=== PATIENT | female | born 1965 | race Caucasian/White ===

== ENCOUNTER 2017-09-02 13:03 | Emergency (ER) | payer SELFPAY ==
[2017-09-02 14:44] LABS: #Eosinphils 0.3 thou/uL (0.0-0.7); #Lymphocytes 2.4 thou/uL (1.20-3.40); #Monocytes 0.6 thou/uL (0.11-0.59); #Neutrophils 8.4 thou/uL (1.40-6.50); %Basophils 0.3 % (0.0-1.0); %Eosinophils 2.7 % (0.0-10.0); %Lymphocytes 20.3 % (21.0-51.0); Hematocrit 33.3 % (36.0-47.0); Red Blood Cell (RBC) Count 3.87 mill/uL (4.20-5.40); White Blood Cell (WBC) Count 11.6 thou/uL (4.8-10.8)
[2017-09-02] MEDS ORDERED: Ketorolac Tromethamine 30 MG/ML VIAL ONE (15:05)
[2017-09-02 15:09] LABS: ALT (SGPT) 26 U/L (8-55); AST (SGOT) 27 U/L (5-34); Alkaline Phosphatase 64 U/L (40-150); Anion Gap 14 mmol/L (10-20); BUN (Urea Nitrogen) 45 mg/dL (9.8-20.1); Bilirubin, Total 0.2 mg/dL (0.2-1.2); Calc. Creatinine Clearance 0 mL/min (70-130); Calcium 9.1 mg/dL (7.8-10.44); Carbon Dioxide 25 mmol/L (22-29); Chloride 100 mmol/L (98-107); Estimated GFR-MDRD 24; Globulin 2.9 g/dL (2.4-3.5); Protein, Total 6.6 g/dL (6.0-8.3)
--- NOTE | 2017-09-02 16:34 | CT ---
CT HEAD NONCONTRAST DATE: 09/02/17 HISTORY: Fall. Head injury. COMPARISON: 02/01/14. FINDINGS: There is no evidence of acute intracranial hemorrhage or infarct. Mild chronic ischemic small vessel disease is similar in appearance to the prior study. There is no mass effect or shift of midline st ructures. Visualized paranasal sinuses remain well aerated. IMPRESSION: No acute intracranial abnormalities are demonstrated on noncontrast CT head. POS: [facility]
[2017-09-02 18:17] LABS: POC Est. GFR-MDRD-African-Amer 34 (2-60); POC Estimated GFR-MDRD 28 (2-60)
== END 2017-09-02 14:27 | disposition home or self-care (01) ==
LOC: ERS 13:03
DX: N28.9 Disorder of kidney and ureter, unspecified (principal); R53.1 Weakness; G89.29 Other chronic pain; E11.40 Type 2 diabetes mellitus with diabetic neuropathy, unspecified; E78.5 Hyperlipidemia, unspecified; F41.9 Anxiety disorder, unspecified; F32.9 Major depressive disorder, single episode, unspecified; F17.210 Nicotine dependence, cigarettes, uncomplicated; G47.30 Sleep apnea, unspecified; J45.909 Unspecified asthma, uncomplicated; I10 Essential (primary) hypertension; M06.9 Rheumatoid arthritis, unspecified; K21.9 Gastro-esophageal reflux disease without esophagitis; K90.0 Celiac disease; L40.50 Arthropathic psoriasis, unspecified; M32.9 Systemic lupus erythematosus, unspecified; W19.XXXA Unspecified fall, initial encounter
CPT/HCPCS: 70450; 80053; 83735; 85025; 96361; 96374; J1885

== ENCOUNTER 2017-09-12 16:37 | Emergency (ER) | payer SELFPAY ==
[2017-09-12 17:40] LABS: #Eosinphils 0.3 thou/uL (0.0-0.7); #Lymphocytes 2.8 thou/uL (1.20-3.40); #Monocytes 0.7 thou/uL (0.11-0.59); #Neutrophils 5.9 thou/uL (1.40-6.50); %Basophils 0.4 % (0.0-1.0); %Eosinophils 3.5 % (0.0-10.0); %Lymphocytes 28.6 % (21.0-51.0); %Monocytes 7.6 % (0.0-10.0); Hematocrit 33.4 % (36.0-47.0); Mean Platelet Volume 8.2 fL (7.4-10.4); Red Blood Cell (RBC) Count 3.84 mill/uL (4.20-5.40); White Blood Cell (WBC) Count 9.8 thou/uL (4.8-10.8)
[2017-09-12 18:05] LABS: ALT (SGPT) 30 U/L (8-55); AST (SGOT) 40 U/L (5-34); Alkaline Phosphatase 61 U/L (40-150); Anion Gap 14 mmol/L (10-20); BUN (Urea Nitrogen) 39 mg/dL (9.8-20.1); Bilirubin, Total 0.2 mg/dL (0.2-1.2); CK (CPK) 186 U/L (29-168); Calc. Creatinine Clearance 0 mL/min (70-130); Calcium 8.8 mg/dL (7.8-10.44); Carbon Dioxide 24 mmol/L (22-29); Chloride 98 mmol/L (98-107); Estimated GFR-MDRD 25; Lipase 189 U/L (8-78); Protein, Total 6.6 g/dL (6.0-8.3)
[2017-09-12 18:10] LABS: Troponin I Less than 0.010 ng/mL (< 0.028)
[2017-09-12 18:40] LABS: Bilirubin Negative (Negative); Blood, Urine Negative (Negative); Glucose, Urine (Dipstick) Negative (Negative); Ketone, Urine Negative (Negative); Nitrite Negative (Negative); Protein, Urine (Dipstick) Negative (Neg-Trace); Urobilinogen 0.2 mg/dL (0.2-1.0)
[2017-09-12 18:41] LABS: Bacteria/HPF None Seen HPF (None Seen); RBC/HPF 0-3 HPF (0-3); WBC/HPF 0-3 HPF (0-3)
[2017-09-12 19:00] LABS: Hyaline Casts/LPF 0-3 HYALINE CAST LPF (0-3 Hyaline)
--- NOTE | 2017-09-12 20:17 | RAD ---
PORTABLE CHEST ONE VIEW 09/12/17 at 6 p.m. HISTORY: Chest pain. FINDINGS: Comparison is made to the exam of 02/22/17. The heart size is borderline. The lungs are well expanded without focal areas of consolidation, pneu mothorax, agustín pulmonary edema or pleural effusions. IMPRESSION: No radiographic evidence of acute cardiopulmonary process. POS: [facility]
[2017-09-12] MEDS ORDERED: traMADol HCl 50 MG TAB ONE (20:59)
[2017-09-12] MEDS ORDERED: predniSONE 20 MG TAB ONE (20:59)
== END 2017-09-12 21:12 | disposition home or self-care (01) ==
LOC: ERS 16:37
DX: M79.1 Myalgia (principal); J45.909 Unspecified asthma, uncomplicated; E11.9 Type 2 diabetes mellitus without complications; E78.5 Hyperlipidemia, unspecified; I10 Essential (primary) hypertension; M06.9 Rheumatoid arthritis, unspecified; K21.9 Gastro-esophageal reflux disease without esophagitis; G62.9 Polyneuropathy, unspecified; F32.9 Major depressive disorder, single episode, unspecified; F41.9 Anxiety disorder, unspecified; M32.9 Systemic lupus erythematosus, unspecified; Z87.891 Personal history of nicotine dependence; Z79.84 Long term (current) use of oral hypoglycemic drugs; Z79.899 Other long term (current) drug therapy; Z79.891 Long term (current) use of opiate analgesic
CPT/HCPCS: 51701; 71010; 80053; 81003; 81015; 82553; 83690; 84484; 85025; 85652; 86140; 93005; A4353; J7506

== ENCOUNTER 2017-09-26 16:52 | Inpatient (IN) | payer OTHER, SELFPAY ==
[2017-09-26 18:37] LABS: #Eosinphils 0.2 thou/uL (0.0-0.7); #Lymphocytes 2.6 thou/uL (1.20-3.40); #Monocytes 0.9 thou/uL (0.11-0.59); #Neutrophils 11.6 thou/uL (1.40-6.50); %Basophils 0.1 % (0.0-1.0); %Eosinophils 1.5 % (0.0-10.0); %Monocytes 5.6 % (0.0-10.0); Hematocrit 34.3 % (36.0-47.0); Mean Platelet Volume 8.5 fL (7.4-10.4); Red Blood Cell (RBC) Count 3.89 mill/uL (4.20-5.40); White Blood Cell (WBC) Count 15.3 thou/uL (4.8-10.8)
[2017-09-26 18:54] LABS: Lactic Acid - Sepsis 0.9 mmol/L (0.5-2.2)
[2017-09-26 18:59] LABS: ALT (SGPT) 26 U/L (8-55); AST (SGOT) 20 U/L (5-34); Alkaline Phosphatase 62 U/L (40-150); Anion Gap 14 mmol/L (10-20); BUN (Urea Nitrogen) 32 mg/dL (9.8-20.1); Bilirubin, Total 0.3 mg/dL (0.2-1.2); Calc. Creatinine Clearance 0 mL/min (70-130); Calcium 8.8 mg/dL (7.8-10.44); Carbon Dioxide 24 mmol/L (22-29); Chloride 104 mmol/L (98-107); Estimated GFR-MDRD 34; Globulin 3.3 g/dL (2.4-3.5)
--- NOTE | 2017-09-26 19:09 | RAD ---
THERE VIEWS RIGHT FOOT: Indication: 52-year-old female with complaints of right foot pain. Comparison: 05-21-16 FINDINGS: The toes of the right foot are slightly healed in flexion which limits the evaluation. There is some scattered forefoot osteoarthrosis, most prominent within the great toe MTP joint. There is healed f racture deformity which is stable to a prior dated 05-21-16 involving the fifth metatarsal shaft. The re is soft tissue swelling and soft tissue gas overlying the plantar lateral aspect of the right fif th metatarsal, suspicious for an ulceration and soft tissue infection at this location. There is no overt destructive osteolysis to suggest radiographic evidence of osteomyelitis. IMPRESSION: 1. Soft tissue wound involving the lateral aspect of the right foot without radiographic evidence of osteomyelitis. 2. Healed fracture deformity of the fifth metatarsal shaft. 3. Scattered osteoarthrosis. POS: [facility]
[2017-09-26] MEDS ORDERED: Vancomycin HCl 1.5 GM in Sodium Chloride 0.9% 250 ML 300 ML IVPB SCH (19:30)
[2017-09-26] MEDS ORDERED: Clindamycin/D5W 900 mg/50 ml Premix Bag ONE (19:51)
[2017-09-26] MEDS ORDERED: Morphine 10 MG/ML VIAL ONE (20:39)
[2017-09-26] MEDS ORDERED: Meropenem 1 GM, Admixture Fee 1 EACH in Sterile Water 20 ML SLOW IVP SCH (21:00)
[2017-09-26] MEDS ORDERED: Acetaminophen 325 MG TAB PO PRN (21:26)
[2017-09-26] MEDS ORDERED: Benzonatate 100 MG CAP PO PRN (21:26)
[2017-09-26] MEDS ORDERED: HumaLOG 300 UNITS/3 ML VIAL SC PRN (21:26)
[2017-09-26] MEDS ORDERED: Ondansetron HCl/PF 4 MG/2 ML Vial IVP PRN (21:26)
[2017-09-26] MEDS ORDERED: Bisacodyl 5 MG TAB PO PRN ×2 (21:26)
[2017-09-26] MEDS ORDERED: Dextrose 50% Abboject 50 ML SYRINGE SLOW IVP PRN (21:26)
[2017-09-26] MEDS ORDERED: Nitroglycerin 0.4 MG TAB (25 Tab Bottle) SL PRN (21:26)
[2017-09-26] MEDS ORDERED: Senokot 8.6 MG TAB PO PRN ×2 (21:26)
[2017-09-26] MEDS ORDERED: Diabetic Tussin 200 MG/10 ML UDCUP PO PRN (21:26)
[2017-09-26] MEDS ORDERED: Calcium Carbonate 500 MG ChewTAB PO PRN (21:26)
[2017-09-26] MEDS ORDERED: Loratadine 10 MG TAB PO PRN (21:26)
[2017-09-26] MEDS ORDERED: Mag-Al 1200 mg/1200 mg/30 ML UDCUP PO PRN (21:26)
[2017-09-26] MEDS ORDERED: Dextrose 5% in Water 1,000 ML IV PRN (21:26)
[2017-09-26] MEDS ORDERED: cloNIDine 0.1 MG TAB PO PRN (21:26)
[2017-09-26] MEDS ORDERED: hydrALAZINE 20 MG/ML VIAL SLOW IVP PRN (21:26)
[2017-09-26] MEDS: Meropenem 1 GM in Sodium Chloride 0.9% 100 ML IVPB SCH (22:30)
[2017-09-26] MEDS ORDERED: traMADol HCl 50 MG TAB PO PRN (23:48)
[2017-09-26] MEDS ORDERED: Nystatin Powder 15 GM BOT TOP SCH (23:59)
[2017-09-27 00:25] VITALS: BMI 43.0
[2017-09-27] MEDS: Sodium Chloride 0.9% 1,000 ML IV SCH ×2 (00:39→11:19)
[2017-09-27] MEDS: HYDROcodone/Acetaminophen 5/325 mg Tablet PO PRN ×5 (00:51→21:12)
[2017-09-27] MEDS ORDERED: Meropenem 1 GM, Admixture Fee 1 EACH in Sterile Water 20 ML SLOW IVP SCH (02:00)
[2017-09-27] MEDS: Meropenem 1 GM in Sodium Chloride 0.9% 100 ML IVPB SCH (04:11)
[2017-09-27 05:26] LABS: #Basophils 0.1 thou/uL (0.0-0.2); #Eosinphils 0.3 thou/uL (0.0-0.7); #Lymphocytes 2.8 thou/uL (1.20-3.40); #Monocytes 0.6 thou/uL (0.11-0.59); #Neutrophils 7.1 thou/uL (1.40-6.50); %Basophils 1.2 % (0.0-1.0); %Eosinophils 2.5 % (0.0-10.0); %Lymphocytes 25.3 % (21.0-51.0); %Monocytes 5.7 % (0.0-10.0); Hematocrit 33.7 % (36.0-47.0); Mean Platelet Volume 8.4 fL (7.4-10.4); Red Blood Cell (RBC) Count 3.78 mill/uL (4.20-5.40); White Blood Cell (WBC) Count 10.9 thou/uL (4.8-10.8)
--- NOTE | 2017-09-27 05:46 | HP ---
DATE OF ADMISSION: 09/26/2017 CHIEF COMPLAINT: Right foot ulcer with drainage of pus, associated with pain and erythema, extendin g to the surrounding foot; and fever. PRIMARY CARE PHYSICIAN: Juliette Chan. HISTORY OF PRESENTING ILLNESS: Ms. Avery is a very pleasant 52-year-old female with past medical history of diabetes mellitus, obstructive sleep apnea, asthma, hypertension, dyslipidemia, a rthritis, and history of cervical cancer, who presented to the emergency room with the above-mention ed complaints. History is mainly obtained by the patient herself and electronic medical record have been reviewed. The patient was last admitted to our facility in December of 2016, at which time sh brain was treated for a tremor secondary to statins. Ms. Avery reports that she has developed a small ulcer on the lateral side of her right foot since J une of this year. They have been cleaning it and putting antibiotic ointment on it at home. Unfort unately, because her lost his job and they lost the insurance. They have stopped going to t foot doctor that has been managing her 2 years ago. Two days ago, she started to have fever as h igh as 101 and 102. The pain in her foot worsened and this morning when they were trying to dress i t they noticed that there is a significant amount of pus coming out of it, draining to the floor. W ith these symptoms they presented to the ER. In the emergency room, she was hemodynamically stable with the blood pressure 114/91 with the pulse of 79. Physical examination revealed significant ulcer with flatulence and pus under the skin on th e plantar surface of the right foot along with an ulcer on the lateral surface of the right foot. X -ray of the foot was done, which did not show any evidence of bone infection, but showed soft tissue swelling with gas. She received meropenem and vancomycin in the emergency room and is now being ad mitted for the right foot diabetic ulcer with infection. PAST MEDICAL HISTORY: 1. Diabetes mellitus, type 2. 2. Diabetic neuropathy. 3. History of lupus. 4. Dyslipidemia. 5. Fibromyalgia. 6. Rheumatoid arthritis. 7. Psoriatic arthritis. 8. Hypertension. 9. Celiac disease. 10. Morbid obesity. 11. Obstructive sleep apnea. 12. Asthma. 13. Glaucoma. 14. Migraine. 15. Restless legs syndrome. PAST SURGICAL HISTORY: 1. Hysterectomy. 2. Deviated nasal septum repair. 3. Cholecystectomy. 4. Tubal ligation. 5. Tonsillectomy and adenoidectomy. 6. Cyst removal from the left breast. 7. Exploratory abdominal surgery. PAST PSYCHIATRIC HISTORY: Anxiety and depression. ALLERGIES: CEFTIN, CODEINE, CYMBALTA, PENICILLIN, GLUTEN, SULFA. FAMILY HISTORY: Mother had bilateral mastectomy and has dementia. Biological father has history of hypertension. SOCIAL HISTORY: The patient is and has no history of drug, tobacco, or alcohol abuse. Her is at the bedside and is the surrogate decision maker. The patient has applied for the [employer], but was declined because her has found a new job. She is still uninsured. CURRENT MEDICATIONS: Unknown. According to the ER note, she takes the following medications: QVAR 80 mcg b.i.d., Proventil 90 mcg two puffs b.i.d., metformin 1000 mg b.i.d., fluticasone 50 mcg two sprays daily, Lyrica 150 p.o. b.i.d., sumatriptan 100 mg as needed, glipizide 10 mg two tablets in t he morning and one tablet in the evening, sertraline 100 mg two tabs once a day, lisinopril 10 mg da gianna, tramadol 50 mg b.i.d. as needed, Lasix 40 mg daily, alprazolam 1 mg half to one tablet t.i.d. p .r.n., Januvia 100 mg daily, melatonin 10 mg at bedtime as needed, potassium chloride 10 mEq daily, iron 325 mg daily, vitamin D3 of 2000 units daily, and Crestor 40 mg daily. REVIEW OF SYSTEMS: The following complete review of systems was negative, unless otherwise mentione d in the HPI or below: Constitutional: Weight loss or gain, ability to conduct usual activities. Skin: Rash, itching. Eyes: Double vision, pain. ENT/Mouth: Nose bleeding, neck stiffness, pain, tenderness. Cardiovascular: Palpitations, dyspnea on exertion, orthopnea. Respiratory: Shortness of breath, wheezing, cough, hemoptysis, fever or night sweats. Gastrointestinal: Poor appetite, abdominal pain, heartburn, nausea, vomiting, constipation, or diar ev. Genitourinary: Urgency, frequency, dysuria, nocturia. Musculoskeletal: Pain, swelling. Neurologic/Psychiatric: Anxiety, depression. Allergy/Immunologic: Skin rash, bleeding tendency. It is negative except for those mentioned in the history and physical. LABORATORY EXAMINATION AND IMAGING: CBC shows WBCs at 15.3 with 75% neutrophils, hemoglobin of 11.4 , otherwise unremarkable. ESR 37. CRP is elevated to 5.32. BUN 32, creatinine 1.57 with baseline creatinine being normal. Blood sugar 135. Lactic acid 0.9. X-ray of the foot shows osteoarthrosis and healed fracture deformity involving the fifth metatarsal shaft. There is soft tissue swelling and gas overlying the lateral aspect of the right foot. No osseous abnormality as per the radiologi st. PHYSICAL EXAMINATION: VITAL SIGNS: Upon presentation include blood pressure 114/91, pulse of 76, respirations 18, saturat ing 98% on room air, temperature 98. GENERAL EXAMINATION: In no acute distress, awake, alert, and oriented x3. HEENT EXAMINATION: Mucous membrane is moist and pink. No oropharyngeal exudate or erythema. Head is normocephalic, atraumatic. Pupils are equal and reactive to light and accommodation. Extraocula r movements intact. NECK: Supple without any lymphadenopathy, JVD, or bruit. CHEST: Clear to auscultation without any wheezing, rales, or rhonchi. CARDIAC: Rate and rhythm is regular without any murmur, rubs or gallops. ABDOMEN: Soft, nontender, nondistended, obese. No guarding, rebound, or rigidity. EXTREMITIES: There is a shallow dry ulcer on the tip of the big toe of the right foot and the botto m of the right foot has purulence and deep ulcer on the lateral aspect. The patient's foot is stearns ged at this time, but I reviewed the wound pictures. NEUROLOGICAL EXAMINATION: Nonfocal. SKIN: Free of any rashes or bruises, feels warm and dry to touch. PSYCHIATRIC: Normal affect. VASCULAR: +2 pedal pulses felt bilaterally. IMPRESSION AND PLAN: 1. Diabetic foot ulcer infection. At this time, there is no evidence of osseous involvement on the foot x-ray. She will be treated with broad-spectrum IV antibiotic. I have chosen vancomycin and m eropenem given her multitude of allergies to various antibiotics. Wound Care will be consulted. Bl ood cultures have been sent and we will follow the final results. Most likely the patient can be di scharged in a few days on oral antibiotic. If her symptoms do not improve or worsen, we would perfo rm an MRI of the foot to rule out osteomyelitis. Symptomatic and supportive care has been ordered. 2. Diabetes mellitus. We will resume her home medications once confirmed. At this time, we will p ut her insulin sliding scale with frequent Accu-Cheks. 3. History of asthma with the patient is asymptomatic at this time. We will continue her QVAR and add nebulizers as needed. 4. Acute kidney insufficiency, likely secondary to poor p.o. intake and dehydration. At this time, we will start her on gentle intravenous fluid hydration and avoid any nephrotoxic agents and rechec k BMP in the morning. 5. Morbid obesity. The patient was eating sonic in room that her has brought for her. I h ave educated about dietary restrictions. 6. Dyslipidemia. Continue Crestor, once the dose is confirmed. 7. Peripheral neuropathy. We will restart her Lyrica once the dose has confirmed. 8. Deep venous thrombosis and gastrointestinal prophylaxis. 9. Code status: FULL CODE, discussed with the patient. DISPOSITION: The patient is being admitted for diabetic foot infection. ESTIMATED LENGTH OF STAY: Two to three midnight. Further management will depend upon her clinical course.
[2017-09-27 05:58] LABS: Anion Gap 12 mmol/L (10-20); BUN (Urea Nitrogen) 28 mg/dL (9.8-20.1); Calc. Creatinine Clearance 63 mL/min (70-130); Calcium 8.8 mg/dL (7.8-10.44); Carbon Dioxide 25 mmol/L (22-29); Chloride 107 mmol/L (98-107); Estimated GFR-MDRD 33
[2017-09-27] MEDS: Mometasone 100 MCG HFA INHALER INH SCH ×2 (06:28→19:17)
[2017-09-27] MEDS: Enoxaparin Sodium 30 MG/0.3 ML SYRINGE SC SCH (07:37)
[2017-09-27] MEDS: Nystatin Powder 15 GM BOT TOP SCH ×2 (07:38→21:03)
[2017-09-27] MEDS ORDERED: Non-Formulary Item 1 EACH (Sumatriptan Succinate [Imitrex] 100 MG) PO PRN (07:43)
[2017-09-27] MEDS ORDERED: ALPRAZolam 1 MG TAB PO PRN (07:43)
[2017-09-27] MEDS ORDERED: SUMAtriptan Succinate 50 MG TAB PO PRN (08:07)
[2017-09-27] MEDS ORDERED: Non-Formulary Item 1 EACH (Ferrous Sulfate [Iron] 325 MG) PO SCH (09:00)
[2017-09-27] MEDS ORDERED: Non-Formulary Item 1 EACH (Rosuvastatin Calcium [Crestor] 40 MG) PO SCH (09:00)
[2017-09-27] MEDS ORDERED: Non-Formulary Item 1 EACH (Pregabalin [Lyrica] 150 MG) PO SCH (09:00)
[2017-09-27] MEDS ORDERED: Famotidine 20 MG TAB PO SCH (09:00)
[2017-09-27] MEDS ORDERED: [UNRECOGNIZED DRUG - OTHER] PO SCH (09:00)
[2017-09-27] MEDS: Pregabalin 75 MG CAP PO SCH ×2 (09:10→20:47)
[2017-09-27] MEDS: Lisinopril 10 MG TAB PO SCH (09:11)
[2017-09-27] MEDS: Ferrous Sulfate 325 MG TAB PO SCH ×2 (09:12→20:44)
[2017-09-27] MEDS: Alogliptin 25 MG TAB PO SCH (09:13)
[2017-09-27] MEDS: Multivit, Therapeutic 1 TAB PO SCH (09:13)
[2017-09-27] MEDS: Meropenem 1 GM, Admixture Fee 1 EACH in Sterile Water 20 ML SLOW IVP SCH ×2 (10:03→17:49)
[2017-09-27] MEDS: Lorazepam 1 MG TAB PO PRN (12:19)
[2017-09-27 12:27] LABS: Bilirubin Negative (Negative); Blood, Urine Small (Negative); Glucose, Urine (Dipstick) Negative (Negative); Ketone, Urine Negative (Negative); Nitrite Negative (Negative); Protein, Urine (Dipstick) 30 mg/dL (Neg-Trace); Urobilinogen 0.2 mg/dL (0.2-1.0)
[2017-09-27 12:28] LABS: Bacteria/HPF None Seen HPF (None Seen); Hyaline Casts/LPF 0-3 HYALINE CAST LPF (0-3 Hyaline); RBC/HPF 0-3 HPF (0-3); Squamous Epithelial 0-3 HPF (0-3); WBC/HPF 0-3 HPF (0-3)
--- NOTE | 2017-09-27 13:29 | PDOC.PN ---
- Subjective Encounter Start Date: 09/27/17 Encounter Start Time: 09:30 -: old records requested/rev Patient seen and examined. No new complaints. No overnight events - Objective MAR Reviewed: Yes Vital Signs & Weight: Vital Signs (12 hours) Temp Pulse Resp BP BP Pulse Ox 09/27/17 11:52 98.7 F 73 16 167/85 H 95 09/27/17 09:11 160/62 H 09/27/17 08:00 98.3 F 77 20 160/62 H 94 L 09/27/17 06:28 69 16 99 09/27/17 04:00 98.5 F 69 20 137/74 95 Weight Admit Weight 220 lb Weight 220 lb I&O: 09/26/17 09/27/17 09/28/17 06:59 06:59 06:59 Intake Total 1100 Balance 1100 Result Diagrams: 09/27/17 04:15 09/27/17 04:15 Additional Labs: Accuchecks 09/27/17 09/27/17 09/26/17 11:38 04:45 21:24 POC Glucose 128 H 169 H 135 H Radiology Reviewed by me: Yes Phys Exam - Physical Examination Constitutional: NAD HEENT: PERRLA, moist MMs, sclera anicteric Neck: no JVD, supple Respiratory: no wheezing, no rales, no rhonchi Cardiovascular: RRR, no significant murmur, no rub Gastrointestinal: soft, non-tender, no distention, positive bowel sounds Musculoskeletal: no edema, pulses present diabetic ulcer noted Neurological: non-focal, normal sensation, moves all 4 limbs Lymphatic: no nodes Psychiatric: normal affect, A&O x 3 Skin: no rash, normal turgor Dx/Plan (1) Diabetic foot ulcer Code(s): E11.621 - TYPE 2 DIABETES MELLITUS WITH FOOT ULCER; L97.509 - NON- PRESSURE CHRONIC ULCER OTH PRT UNSP FOOT W UNSP SEVERITY Status: Acute Qualifiers: Laterality: right (2) Anxiety and depression Code(s): F41.8 - OTHER SPECIFIED ANXIETY DISORDERS Status: Chronic (3) CKD (chronic kidney disease), stage III Code(s): N18.3 - CHRONIC KIDNEY DISEASE, STAGE 3 (MODERATE) Status: Chronic (4) Diabetic neuropathy Code(s): E11.40 - TYPE 2 DIABETES MELLITUS WITH DIABETIC NEUROPATHY, UNSP Status: Chronic (5) Dyslipidemia Code(s): E78.5 - HYPERLIPIDEMIA, UNSPECIFIED Status: Chronic (6) GERD (gastroesophageal reflux disease) Code(s): K21.9 - GASTRO-ESOPHAGEAL REFLUX DISEASE WITHOUT ESOPHAGITIS Status: Chronic (7) Hypertension Code(s): I10 - ESSENTIAL (PRIMARY) HYPERTENSION Status: Chronic (8) Morbid obesity with BMI of 40.0-44.9, adult Code(s): E66.01 - MORBID (SEVERE) OBESITY DUE TO EXCESS CALORIES; Z68.41 - BODY MASS INDEX (BMI) 40.0-44.9, ADULT Status: Chronic - Plan cont current plan of care, plan discussed w/ family, continue antibiotics * will consult general surgery for evaluation for I & D * continue vancomycin and meropenam * medication reviewed as below * symptomatic treatment. * wound care Review of Systems - Review of Systems ENT: negative: Ear Pain, Ear Discharge, Nose Pain, Nose Discharge, Nose Congestion, Mouth Pain, Mouth Swelling, Throat Pain, Throat Swelling, Other Respiratory: negative: Cough, Dry, Shortness of Breath, Hemoptysis, SOB with Excertion, Pleuritic Pain, Sputum, Wheezing Cardiovascular: negative: Chest Pain, Palpitations, Orthopnea, Paroxysmal Noc. Dyspnea, Edema, Light Headedness, Other Gastrointestinal: negative: Nausea, Vomiting, Abdominal Pain, Diarrhea, Constipation, Melena, Hematochezia, Other Genitourinary: negative: Dysuria, Frequency, Incontinence, Hematuria, Retention , Other Musculoskeletal: negative: Neck Pain, Shoulder Pain, Arm Pain, Back Pain, Hand Pain, Leg Pain, Foot Pain, Other - Medications/Allergies Allergies/Adverse Reactions: Allergies Allergy/AdvReac Type Severity Reaction Status Date / Time cefuroxime axetil Allergy Severe Anaphylaxis Verified 09/26/17 23:35 [From Ceftin] codeine Allergy Severe Hives Verified 09/26/17 23:35 duloxetine HCl Allergy Severe Hives Verified 09/26/17 23:35 [From Cymbalta] Penicillins Allergy Severe Anaphylaxis Verified 09/26/17 23:35 amoxicillin Allergy Verified 09/26/17 23:35 ampicillin Allergy Verified 09/26/17 23:35 Fish Containing Products Allergy Verified 09/26/17 23:35 gluten Allergy Verified 09/26/17 23:35 shellfish derived Allergy Verified 09/26/17 23:35 Sulfa (Sulfonamide Allergy Verified 09/26/17 23:35 Antibiotics) Medications: Current Medications Acetaminophen (Tylenol) 650 mg PO Q4H PRN PRN Reason: Headache/Fever or Pain Hydrocodone Bitart/Acetaminophen (Omer 5/325) 1 tab PO Q4H PRN PRN Reason: Moderate Pain (4-6) Last Admin: 09/27/17 09:17 Dose: 1 tab Hydrocodone Bitart/Acetaminophen (Omer 5/325) 2 tab PO Q4H PRN PRN Reason: Severe Pain (7-10) Last Admin: 09/27/17 05:26 Dose: 2 tab Al Hydroxide/Mg Hydroxide (Maalox) 30 ml PO Q6H PRN PRN Reason: Heartburn or Indigestion Albuterol/Ipratropium (Duoneb) 3 ml NEB Q6H PRN PRN Reason: SOB &/or Wheezing Alogliptin Benzoate (Alogliptin) 25 mg PO DAILY [facility] Last Admin: 09/27/17 09:13 Dose: Not Given Alprazolam (Xanax) 1 mg PO TIDPRN PRN PRN Reason: Anxiety Benzonatate (Tessalon) 100 mg PO Q4H PRN PRN Reason: Cough Bisacodyl (Dulcolax) 10 mg PO DAILYPRN PRN PRN Reason: Constipation Calcium Carbonate (Tums) 1,000 mg PO Q4H PRN PRN Reason: Heartburn or Indigestion Cholecalciferol (Vitamin D3) 2,000 units PO [facility] Clonidine (Catapres) 0.1 mg PO Q4H PRN PRN Reason: Systolic BP > 160 Dextrose/Water (Dextrose 50%) 25 gm SLOW IVP PRN PRN PRN Reason: Hypoglycemia Enoxaparin Sodium (Lovenox) 30 mg SC 0900 [facility] Last Admin: 09/27/17 07:37 Dose: 30 mg Ferrous Sulfate (Feosol) 325 mg PO BID [facility] Last Admin: 09/27/17 09:12 Dose: Not Given Glipizide (Glucotrol Xl) 10 mg PO BID [facility] Last Admin: 09/27/17 09:13 Dose: Not Given Glucagon (Glucagon) 1 mg IM PRN PRN PRN Reason: Hypoglycemia Guaifenesin (Robitussin Sf) 200 mg PO Q4H PRN PRN Reason: Cough Hydralazine HCl (Apresoline) 10 mg SLOW IVP Q4H PRN PRN Reason: Systolic BP > 170 Dextrose/Water (D5w) 1,000 mls @ 0 mls/hr IV .Q0M PRN; As Directed PRN Reason: Hypoglycemia Sodium Chloride (Normal Saline 0.9%) 1,000 mls @ 75 mls/hr IV .[id number] [facility] Last Admin: 09/27/17 11:19 Dose: 1,000 mls Vancomycin HCl 1 gm/ Device 200 mls @ 200 mls/hr IVPB 2000 [facility] Meropenem 1 gm/ Miscellaneous Medication 1 each/ Sterile Water 20 mls @ 240 mls /hr SLOW IVP 0100,0900,1700 [facility] Last Admin: 09/27/17 10:03 Dose: 20 mls Insulin Human Lispro (Humalog) 0 units SC .MODERATE SLIDING SC PRN PRN Reason: Moderate Correctional Scale Insulin Human Lispro (Humalog) 0 units SC .BEDTIME SLIDING SC PRN PRN Reason: Bedtime Correctional Scale Lisinopril (Zestril) 10 mg PO DAILY [facility] Last Admin: 09/27/17 09:11 Dose: 10 mg Loratadine (Claritin) 10 mg PO DAILYPRN PRN PRN Reason: Sinus Symptoms Lorazepam (Ativan) 1 mg PO Q4H PRN PRN Reason: Anxiety/Agitation Last Admin: 09/27/17 12:19 Dose: 1 mg Melatonin (Melatonin) 10 mg PO [facility] Mometasone Furoate (Asmanex Hfa 100 Mcg) 1 puff INH BID-RT [facility] Last Admin: 09/27/17 06:28 Dose: 1 puff Multivitamins (Theragran) 1 tab PO DAILY [facility] Last Admin: 09/27/17 09:13 Dose: Not Given Nitroglycerin (Nitrostat) 0.4 mg SL Q5MIN PRN PRN Reason: Chest Pain Nystatin (Mycostatin Powder) 1 gm TOP BID [facility] Last Admin: 09/27/17 07:38 Dose: 1 applic Ondansetron HCl (Zofran) 4 mg IVP Q6H PRN PRN Reason: Nausea/Vomiting Pantoprazole Sodium (Protonix) 40 mg PO DAILY [facility] Last Admin: 09/27/17 09:12 Dose: 40 mg Pregabalin (Lyrica) 150 mg PO BID [facility] Last Admin: 09/27/17 09:10 Dose: 150 mg Rosuvastatin Calcium (Crestor) 40 mg PO HS [facility] Senna (Senokot) 2 tab PO HSPRN PRN PRN Reason: Constipation Sertraline HCl (Zoloft) 200 mg PO HS [facility] Sodium Chloride (Flush - Normal Saline) 10 ml IVF Q12HR [facility] Last Admin: 09/27/17 07:38 Dose: 10 ml Sodium Chloride (Flush - Normal Saline) 10 ml IVF PRN PRN PRN Reason: Saline Flush Sumatriptan Succinate (Imitrex) 100 mg PO PRN PRN PRN Reason: Headache Tramadol HCl (Ultram) 50 mg PO Q4H PRN PRN Reason: Mild Pain (1-3)
--- NOTE | 2017-09-27 16:54 | HP ---
HISTORY OF PRESENT ILLNESS: This is a 52-year-old female who lives in [place] fractured her right small toe two years ago, was seen by a cake puller. She is developing neuropathic diabetic ul cer, right foot plantar beneath the metatarsophalangeal joint of the fifth toe. She has been treati jadyn this herself for 6 months. She presents to the hospital, has a neuropathic ulceration with cellu litis and blistering skin with purulent material beneath it and extending to the mid arch foot. The re is cellulitis of the foot. X-rays reveal absence of osteomyelitis. ALLERGIES: CEFUROXIME, PENICILLIN, CODEINE, DULOXETINE. TOBACCO: None. ALCOHOL: None. MEDICATIONS: At home include Tylenol, DuoNebs, alogliptin, Xanax, Tessalon, Tums, vitamin D3, Catap res 0.1 mg p.r.n., alprazolam 1 mg p.o. t.i.d. p.r.n., iron sulfate 325 b.i.d., melatonin 10 mg at b edtime, lisinopril 10 mg daily, sertraline 200 mg at bedtime, glipizide 10 mg b.i.d., metformin 1000 mg b.i.d., sitagliptin (Januvia) 100 mg daily, tramadol p.r.n., Combivent inhaler p.r.n., Zofran p. r.n., albuterol inhaler p.r.n., Flovent Diskus p.r.n., nystatin, furosemide 40 mg a day, Qvar 80 mcg INH b.i.d., and potassium chloride 10 mEq daily. PAST MEDICAL HISTORY: Hypertension, diabetes mellitus, non-insulin dependent. Patient reports christopher salamanca had a cardiac stress test several years ago that was negative. Restless legs syndrome, migraine, glaucoma, asthma, sleep apnea, morbid obesity, celiac disease, hypertension, psoriatic arthritis, r heumatoid arthritis, metabolic syndrome, fibromyalgia, history of lupus, chronic kidney disease. PAST SURGICAL HISTORY: Appendectomy, total abdominal hysterectomy, cholecystectomy, tubal ligation, tonsillectomy, adenoidectomy, cyst removed, exploratory laparotomy surgery. Sodium 139, potassium 4.6, creatinine 1.6, BUN 28, white count 10, hemoglobin 11. PHYSICAL EXAMINATION: VITAL SIGNS: 5 foot tall, 220 pounds, 43 BMI, 98.7 degrees, 160/62, respiratory rate 16. HEENT: Unremarkable. LUNGS: Clear to auscultation. CARDIAC: Regular rate and rhythm without murmur or gallop. ABDOMEN: Obese, soft, nontender. EXTREMITIES: Palpable femoral, popliteal, dorsalis pedis pulses bilaterally. Right foot has a plan tar neuropathic ulceration extends to the metatarsophalangeal joint of the fifth toe. She has blist ering skin tracking toward the medial plantar arch proximally. There is cellulitis extending around the medial aspect of the foot over towards the dorsum. This skin was unroofed sharply and exposing intact dermis beneath, the plantar arch area, but the neuropathic ulcer extends into the metatarsop halangeal joint of the fifth toe. ASSESSMENT AND PLAN: Diabetic neuropathic ulceration, right foot with past history of associated fr acture. We would recommend amputation of the right fifth toe and metatarsal with healing secondaril y with a wound VAC and outpatient wound VAC arrangements. Procedure, wound care visits 2-3 times a week. She should keep her heels off the bed to prevent decubitus ulcers during this hospitalization and decreased activity. She can weightbear as tolerated with orthopedic postoperative shoe postope ratively. Patient understands these issues and questions answered. We will plan tomorrow.
[2017-09-27] MEDS: Vancomycin HCl 1 GM in Premix Bag 1 BAG IVPB SCH (20:44)
[2017-09-27] MEDS: Melatonin 3 MG TAB PO SCH (20:46)
[2017-09-27] MEDS: Rosuvastatin 20 MG TAB PO SCH (20:47)
[2017-09-27] MEDS ORDERED: Melatonin 3 MG TAB PO SCH (21:00)
[2017-09-27] MEDS ORDERED: Non-Formulary Item 1 EACH (Cholecalciferol (Vitamin D3) [Vitamin D3] 2,000 UNIT) PO SCH (21:00)
[2017-09-28] MEDS: Meropenem 1 GM, Admixture Fee 1 EACH in Sterile Water 20 ML SLOW IVP SCH ×4 (00:56→20:57)
[2017-09-28 05:22] LABS: #Eosinphils 0.4 thou/uL (0.0-0.7); #Lymphocytes 2.3 thou/uL (1.20-3.40); #Monocytes 0.7 thou/uL (0.11-0.59); #Neutrophils 5.1 thou/uL (1.40-6.50); %Basophils 0.3 % (0.0-1.0); %Eosinophils 4.2 % (0.0-10.0); %Lymphocytes 27.4 % (21.0-51.0); Hematocrit 32.8 % (36.0-47.0); Mean Platelet Volume 8.5 fL (7.4-10.4); Red Blood Cell (RBC) Count 3.63 mill/uL (4.20-5.40); White Blood Cell (WBC) Count 8.4 thou/uL (4.8-10.8)
[2017-09-28 05:49] LABS: Anion Gap 12 mmol/L (10-20); BUN (Urea Nitrogen) 24 mg/dL (9.8-20.1); Calc. Creatinine Clearance 80 mL/min (70-130); Calcium 9.5 mg/dL (7.8-10.44); Carbon Dioxide 26 mmol/L (22-29); Chloride 106 mmol/L (98-107); Estimated GFR-MDRD 44
[2017-09-28] MEDS: Mometasone 100 MCG HFA INHALER INH SCH ×2 (06:55→18:23)
[2017-09-28] MEDS: Ferrous Sulfate 325 MG TAB PO SCH ×2 (08:24→20:34)
[2017-09-28] MEDS: Alogliptin 25 MG TAB PO SCH (08:24)
[2017-09-28] MEDS: HYDROcodone/Acetaminophen 5/325 mg Tablet PO PRN ×2 (08:27→18:01)
[2017-09-28] MEDS: Pregabalin 75 MG CAP PO SCH ×2 (08:29→20:37)
[2017-09-28] MEDS: Lisinopril 10 MG TAB PO SCH (08:29)
[2017-09-28] MEDS: Sodium Chloride 0.9% 1,000 ML IV SCH ×2 (08:33→19:13)
[2017-09-28] MEDS: Enoxaparin Sodium 30 MG/0.3 ML SYRINGE SC SCH (08:33)
[2017-09-28] MEDS: Nystatin Powder 15 GM BOT TOP SCH ×2 (08:34→20:36)
[2017-09-28] MEDS: Multivit, Therapeutic 1 TAB PO SCH (08:34)
--- NOTE | 2017-09-28 12:50 | PDOC.PN ---
- Subjective Encounter Start Date: 09/28/17 Encounter Start Time: 08:15 Patient seen and examined. No new complaints. No overnight events - Objective MAR Reviewed: Yes Vital Signs & Weight: Vital Signs (12 hours) Temp Pulse Resp BP BP Pulse Ox 09/28/17 08:29 165/85 H 09/28/17 08:00 98.0 F 72 18 165/85 H 97 Weight Admit Weight 220 lb Weight 220 lb I&O: 09/27/17 09/28/17 09/29/17 06:59 06:59 06:59 Intake Total 1100 3000 Balance 1100 3000 Result Diagrams: 09/28/17 04:36 09/28/17 04:36 Additional Labs: Accuchecks 09/28/17 09/28/17 09/27/17 10:59 05:12 19:40 POC Glucose 119 H 93 216 H Phys Exam - Physical Examination Constitutional: NAD HEENT: PERRLA, moist MMs, sclera anicteric Neck: no JVD, supple Respiratory: no wheezing, no rales, no rhonchi Cardiovascular: RRR, no significant murmur, no rub Gastrointestinal: soft, non-tender, no distention, positive bowel sounds Musculoskeletal: no edema, pulses present RIGHT FOOT WITH DRESSING Neurological: non-focal, normal sensation, moves all 4 limbs Psychiatric: normal affect, A&O x 3 Skin: no rash, normal turgor Dx/Plan (1) Diabetic foot ulcer Code(s): E11.621 - TYPE 2 DIABETES MELLITUS WITH FOOT ULCER; L97.509 - NON- PRESSURE CHRONIC ULCER OTH PRT UNSP FOOT W UNSP SEVERITY Status: Acute Qualifiers: Laterality: right (2) Anxiety and depression Code(s): F41.8 - OTHER SPECIFIED ANXIETY DISORDERS Status: Chronic (3) CKD (chronic kidney disease), stage III Code(s): N18.3 - CHRONIC KIDNEY DISEASE, STAGE 3 (MODERATE) Status: Chronic (4) Diabetic neuropathy Code(s): E11.40 - TYPE 2 DIABETES MELLITUS WITH DIABETIC NEUROPATHY, UNSP Status: Chronic (5) Dyslipidemia Code(s): E78.5 - HYPERLIPIDEMIA, UNSPECIFIED Status: Chronic (6) GERD (gastroesophageal reflux disease) Code(s): K21.9 - GASTRO-ESOPHAGEAL REFLUX DISEASE WITHOUT ESOPHAGITIS Status: Chronic (7) Hypertension Code(s): I10 - ESSENTIAL (PRIMARY) HYPERTENSION Status: Chronic (8) Morbid obesity with BMI of 40.0-44.9, adult Code(s): E66.01 - MORBID (SEVERE) OBESITY DUE TO EXCESS CALORIES; Z68.41 - BODY MASS INDEX (BMI) 40.0-44.9, ADULT Status: Chronic - Plan cont current plan of care, plan discussed w/ family, continue antibiotics * today plan for toe amputation * continue wound care * medication reviewed as below * symptomatic treatment * discharge planning * continue vancomycin and meropenam Review of Systems - Review of Systems ENT: negative: Ear Pain, Ear Discharge, Nose Pain, Nose Discharge, Nose Congestion, Mouth Pain, Mouth Swelling, Throat Pain, Throat Swelling, Other Respiratory: negative: Cough, Dry, Shortness of Breath, Hemoptysis, SOB with Excertion, Pleuritic Pain, Sputum, Wheezing Cardiovascular: negative: Chest Pain, Palpitations, Orthopnea, Paroxysmal Noc. Dyspnea, Edema, Light Headedness, Other Gastrointestinal: negative: Nausea, Vomiting, Abdominal Pain, Diarrhea, Constipation, Melena, Hematochezia, Other Genitourinary: negative: Dysuria, Frequency, Incontinence, Hematuria, Retention , Other Musculoskeletal: negative: Neck Pain, Shoulder Pain, Arm Pain, Back Pain, Hand Pain, Leg Pain, Foot Pain, Other Skin: negative: Rash, Lesions, Luis, Bruising, Other - Medications/Allergies Allergies/Adverse Reactions: Allergies Allergy/AdvReac Type Severity Reaction Status Date / Time cefuroxime axetil Allergy Severe Anaphylaxis Verified 09/26/17 23:35 [From Ceftin] codeine Allergy Severe Hives Verified 09/26/17 23:35 duloxetine HCl Allergy Severe Hives Verified 09/26/17 23:35 [From Cymbalta] Penicillins Allergy Severe Anaphylaxis Verified 09/26/17 23:35 amoxicillin Allergy Verified 09/26/17 23:35 ampicillin Allergy Verified 09/26/17 23:35 Fish Containing Products Allergy Verified 09/26/17 23:35 gluten Allergy Verified 09/26/17 23:35 shellfish derived Allergy Verified 09/26/17 23:35 Sulfa (Sulfonamide Allergy Verified 09/26/17 23:35 Antibiotics) Medications: Current Medications Acetaminophen (Tylenol) 650 mg PO Q4H PRN PRN Reason: Headache/Fever or Pain Hydrocodone Bitart/Acetaminophen ([place] 5/325) 1 tab PO Q4H PRN PRN Reason: Moderate Pain (4-6) Last Admin: 09/27/17 09:17 Dose: 1 tab Hydrocodone Bitart/Acetaminophen ([place] 5/325) 2 tab PO Q4H PRN PRN Reason: Severe Pain (7-10) Last Admin: 09/28/17 08:27 Dose: 2 tab Al Hydroxide/Mg Hydroxide (Maalox) 30 ml PO Q6H PRN PRN Reason: Heartburn or Indigestion Albuterol/Ipratropium (Duoneb) 3 ml NEB Q6H PRN PRN Reason: SOB &/or Wheezing Alogliptin Benzoate (Alogliptin) 25 mg PO DAILY [facility] Last Admin: 09/28/17 08:24 Dose: 25 mg Alprazolam (Xanax) 1 mg PO TIDPRN PRN PRN Reason: Anxiety Benzonatate (Tessalon) 100 mg PO Q4H PRN PRN Reason: Cough Bisacodyl (Dulcolax) 10 mg PO DAILYPRN PRN PRN Reason: Constipation Calcium Carbonate (Tums) 1,000 mg PO Q4H PRN PRN Reason: Heartburn or Indigestion Cholecalciferol (Vitamin D3) 2,000 units PO HS [facility] Last Admin: 09/27/17 20:48 Dose: 2,000 units Clonidine (Catapres) 0.1 mg PO Q4H PRN PRN Reason: Systolic BP > 160 Dextrose/Water (Dextrose 50%) 25 gm SLOW IVP PRN PRN PRN Reason: Hypoglycemia Enoxaparin Sodium (Lovenox) 30 mg SC 0900 [facility] Last Admin: 09/28/17 08:33 Dose: Not Given Ferrous Sulfate (Feosol) 325 mg PO BID [facility] Last Admin: 09/28/17 08:24 Dose: 325 mg Glipizide (Glucotrol Xl) 10 mg PO BID [facility] Last Admin: 09/28/17 08:24 Dose: 10 mg Glucagon (Glucagon) 1 mg IM PRN PRN PRN Reason: Hypoglycemia Guaifenesin (Robitussin Sf) 200 mg PO Q4H PRN PRN Reason: Cough Hydralazine HCl (Apresoline) 10 mg SLOW IVP Q4H PRN PRN Reason: Systolic BP > 170 Dextrose/Water (D5w) 1,000 mls @ 0 mls/hr IV .Q0M PRN; As Directed PRN Reason: Hypoglycemia Vancomycin HCl 1 gm/ Device 200 mls @ 200 mls/hr IVPB 2000 [facility] Last Admin: 09/27/17 20:44 Dose: 200 mls Meropenem 1 gm/ Miscellaneous Medication 1 each/ Sterile Water 20 mls @ 240 mls /hr SLOW IVP 0100,0900,1700 [facility] Last Admin: 09/28/17 08:23 Dose: 20 mls Sodium Chloride (Normal Saline 0.9%) 1,000 mls @ 100 mls/hr IV .Q10H [facility] Last Admin: 09/28/17 08:33 Dose: Not Given Insulin Human Lispro (Humalog) 0 units SC .MODERATE SLIDING SC PRN PRN Reason: Moderate Correctional Scale Insulin Human Lispro (Humalog) 0 units SC .BEDTIME SLIDING SC PRN PRN Reason: Bedtime Correctional Scale Lisinopril (Zestril) 10 mg PO DAILY [facility] Last Admin: 09/28/17 08:29 Dose: 10 mg Loratadine (Claritin) 10 mg PO DAILYPRN PRN PRN Reason: Sinus Symptoms Lorazepam (Ativan) 1 mg PO Q4H PRN PRN Reason: Anxiety/Agitation Last Admin: 09/27/17 12:19 Dose: 1 mg Melatonin (Melatonin) 9 mg PO HS [facility] Last Admin: 09/27/17 20:46 Dose: 9 mg Mometasone Furoate (Asmanex Hfa 100 Mcg) 1 puff INH BID-RT [facility] Last Admin: 09/28/17 06:55 Dose: 1 puff Multivitamins (Theragran) 1 tab PO DAILY [facility] Last Admin: 09/28/17 08:34 Dose: 1 tab Nitroglycerin (Nitrostat) 0.4 mg SL Q5MIN PRN PRN Reason: Chest Pain Nystatin (Mycostatin Powder) 1 gm TOP BID [facility] Last Admin: 09/28/17 08:34 Dose: 1 applic Ondansetron HCl (Zofran) 4 mg IVP Q6H PRN PRN Reason: Nausea/Vomiting Pantoprazole Sodium (Protonix) 40 mg PO DAILY [facility] Last Admin: 09/28/17 08:24 Dose: 40 mg Pregabalin (Lyrica) 150 mg PO BID [facility] Last Admin: 09/28/17 08:29 Dose: 150 mg Rosuvastatin Calcium (Crestor) 40 mg PO HS [facility] Last Admin: 09/27/17 20:47 Dose: 40 mg Senna (Senokot) 2 tab PO HSPRN PRN PRN Reason: Constipation Sertraline HCl (Zoloft) 200 mg PO HS [facility] Last Admin: 09/27/17 20:47 Dose: 200 mg Sodium Chloride (Flush - Normal Saline) 10 ml IVF Q12HR [facility] Last Admin: 09/28/17 08:22 Dose: 10 ml Sodium Chloride (Flush - Normal Saline) 10 ml IVF PRN PRN PRN Reason: Saline Flush Sumatriptan Succinate (Imitrex) 100 mg PO PRN PRN PRN Reason: Headache Tramadol HCl (Ultram) 50 mg PO Q4H PRN PRN Reason: Mild Pain (1-3)
[2017-09-28] MEDS ORDERED: Fentanyl 100 MCG/2 ML VIAL ONE (13:50)
[2017-09-28] MEDS ORDERED: Propofol 200 MG/20 ML VIAL ONE (14:13)
[2017-09-28] MEDS ORDERED: Ondansetron HCl/PF 4 MG/2 ML Vial IVP PRN (14:24)
[2017-09-28] MEDS ORDERED: Acetaminophen 500 MG TAB PO PRN (14:42)
[2017-09-28] MEDS ORDERED: traMADol HCl 50 MG TAB PO PRN (14:42)
--- NOTE | 2017-09-28 15:02 | OP ---
DATE OF PROCEDURE: 09/28/2017 PREOPERATIVE DIAGNOSES: Right foot diabetic infection with neuropathic ulcer beneath the metatarsop halangeal joint of the right foot. PROCEDURE: Amputation of right fifth toe and metatarsal. Wound left open for healing by secondary intention. Wound Care arrived and placed a wound VAC. Good blood supply. Cautery and suture requi red for hemostasis. SURGEON: Dr. Robinson Vaughan ANESTHESIA: Sedation. PROCEDURE IN DETAIL: Patient was taken to the operating room where under intravenous sedation, her right foot was prepared with ChloraPrep, draped in routine fashion. Incision made for amputation of the right fifth toe and metatarsal and carried down through the skin and subcutaneous tissue, prese rving as much skin as possible, excising the neuropathic ulcer lateral plantar. Incision carried do wn through the skin and subcutaneous tissue to the metatarsal, transected with a bone cutter, resect ed proximally with rongeurs. Hemostasis gained with cautery and 3-0 Vicryl [id number] suture. Good hemostasis obtained. Wound irrigated. Wound Care arrived and placed a wound VAC. The patien t tolerated the procedure well.
[2017-09-28 19:25] LABS: Vancomycin, Trough 9.7 ug/mL
[2017-09-28] MEDS: Vancomycin HCl 1 GM in Premix Bag 1 BAG IVPB SCH (20:32)
[2017-09-28] MEDS: Melatonin 3 MG TAB PO SCH (20:36)
[2017-09-28] MEDS: Rosuvastatin 20 MG TAB PO SCH (20:38)
[2017-09-28] MEDS: Vancomycin HCl 1.5 GM in Sodium Chloride 0.9% 250 ML 300 ML IVPB SCH (20:57)
[2017-09-29] MEDS: HYDROcodone/Acetaminophen 5/325 mg Tablet PO PRN ×4 (00:09→20:59)
[2017-09-29] MEDS: Meropenem 1 GM, Admixture Fee 1 EACH in Sterile Water 20 ML SLOW IVP SCH ×3 (04:02→20:56)
[2017-09-29 04:18] LABS: #Eosinphils 0.3 thou/uL (0.0-0.7); #Lymphocytes 2.5 thou/uL (1.20-3.40); #Monocytes 0.6 thou/uL (0.11-0.59); %Basophils 0.4 % (0.0-1.0); %Lymphocytes 26.6 % (21.0-51.0); %Monocytes 6.6 % (0.0-10.0); Hematocrit 32.9 % (36.0-47.0); Mean Platelet Volume 7.6 fL (7.4-10.4); Red Blood Cell (RBC) Count 3.67 mill/uL (4.20-5.40); White Blood Cell (WBC) Count 9.5 thou/uL (4.8-10.8)
[2017-09-29 04:27] LABS: Anion Gap 10 mmol/L (10-20); BUN (Urea Nitrogen) 19 mg/dL (9.8-20.1); Calc. Creatinine Clearance 81 mL/min (70-130); Calcium 9.2 mg/dL (7.8-10.44); Carbon Dioxide 28 mmol/L (22-29); Chloride 106 mmol/L (98-107); Estimated GFR-MDRD 45
[2017-09-29] MEDS: HumaLOG 300 UNITS/3 ML VIAL SC PRN (05:42)
[2017-09-29] MEDS: Mometasone 100 MCG HFA INHALER INH SCH ×2 (06:35→19:13)
[2017-09-29] MEDS: Alogliptin 25 MG TAB PO SCH (09:15)
[2017-09-29] MEDS: Pregabalin 75 MG CAP PO SCH ×2 (09:15→20:57)
[2017-09-29] MEDS: Lisinopril 10 MG TAB PO SCH (09:16)
[2017-09-29] MEDS: Multivit, Therapeutic 1 TAB PO SCH (09:16)
[2017-09-29] MEDS: Ferrous Sulfate 325 MG TAB PO SCH ×2 (09:16→20:54)
[2017-09-29] MEDS: Enoxaparin Sodium 30 MG/0.3 ML SYRINGE SC SCH (09:17)
[2017-09-29] MEDS: Nystatin Powder 15 GM BOT TOP SCH ×2 (10:15→20:56)
[2017-09-29] MEDS: Sodium Chloride 0.9% 1,000 ML IV SCH ×2 (10:16→20:52)
--- NOTE | 2017-09-29 12:48 | PDOC.PN ---
- Subjective Encounter Start Date: 09/29/17 Encounter Start Time: 08:45 Patient seen and examined. No new complaints. No overnight events - Objective MAR Reviewed: Yes Vital Signs & Weight: Vital Signs (12 hours) Temp Pulse Resp BP BP Pulse Ox 09/29/17 09:16 133/88 09/29/17 08:05 98.1 F 66 20 133/88 97 09/29/17 08:00 98.1 F 66 20 Weight Admit Weight 220 lb Weight 220 lb I&O: 09/28/17 09/29/17 09/30/17 06:59 06:59 06:59 Intake Total 3000 3103 Output Total 751 Balance 3000 2352 Result Diagrams: 09/29/17 03:35 09/29/17 03:35 Additional Labs: Accuchecks 09/29/17 09/29/17 09/28/17 11:30 04:26 19:51 POC Glucose 159 H 184 H 205 H 09/28/17 16:20 POC Glucose 93 Phys Exam - Physical Examination Constitutional: NAD HEENT: PERRLA, moist MMs, sclera anicteric Neck: no JVD, supple Respiratory: no wheezing, no rales, no rhonchi Cardiovascular: RRR, no significant murmur, no rub Gastrointestinal: soft, non-tender, no distention, positive bowel sounds Musculoskeletal: no edema, pulses present right foot with dressing, wound vac Neurological: non-focal, normal sensation Psychiatric: normal affect, A&O x 3 Skin: no rash, normal turgor Dx/Plan (1) Diabetic foot ulcer Code(s): E11.621 - TYPE 2 DIABETES MELLITUS WITH FOOT ULCER; L97.509 - NON- PRESSURE CHRONIC ULCER OTH PRT UNSP FOOT W UNSP SEVERITY Status: Acute Qualifiers: Laterality: right (2) Anxiety and depression Code(s): F41.8 - OTHER SPECIFIED ANXIETY DISORDERS Status: Chronic (3) CKD (chronic kidney disease), stage III Code(s): N18.3 - CHRONIC KIDNEY DISEASE, STAGE 3 (MODERATE) Status: Chronic (4) Diabetic neuropathy Code(s): E11.40 - TYPE 2 DIABETES MELLITUS WITH DIABETIC NEUROPATHY, UNSP Status: Chronic (5) Dyslipidemia Code(s): E78.5 - HYPERLIPIDEMIA, UNSPECIFIED Status: Chronic (6) GERD (gastroesophageal reflux disease) Code(s): K21.9 - GASTRO-ESOPHAGEAL REFLUX DISEASE WITHOUT ESOPHAGITIS Status: Chronic (7) Hypertension Code(s): I10 - ESSENTIAL (PRIMARY) HYPERTENSION Status: Chronic (8) Morbid obesity with BMI of 40.0-44.9, adult Code(s): E66.01 - MORBID (SEVERE) OBESITY DUE TO EXCESS CALORIES; Z68.41 - BODY MASS INDEX (BMI) 40.0-44.9, ADULT Status: Chronic - Plan cont current plan of care, plan discussed w/ family, continue antibiotics * continue antibiotics as below * wound care with wound vac * discharge planning * medication reviewed as below * symptomatic treatment. Review of Systems - Review of Systems ENT: negative: Ear Pain, Ear Discharge, Nose Pain, Nose Discharge, Nose Congestion, Mouth Pain, Mouth Swelling, Throat Pain, Throat Swelling, Other Respiratory: negative: Cough, Dry, Shortness of Breath, Hemoptysis, SOB with Excertion, Pleuritic Pain, Sputum, Wheezing Cardiovascular: negative: Chest Pain, Palpitations, Orthopnea, Paroxysmal Noc. Dyspnea, Edema, Light Headedness, Other Gastrointestinal: negative: Nausea, Vomiting, Abdominal Pain, Diarrhea, Constipation, Melena, Hematochezia, Other Genitourinary: negative: Dysuria, Frequency, Incontinence, Hematuria, Retention , Other Musculoskeletal: negative: Neck Pain, Shoulder Pain, Arm Pain, Back Pain, Hand Pain, Leg Pain, Foot Pain, Other - Medications/Allergies Allergies/Adverse Reactions: Allergies Allergy/AdvReac Type Severity Reaction Status Date / Time cefuroxime axetil Allergy Severe Anaphylaxis Verified 09/26/17 23:35 [From Ceftin] codeine Allergy Severe Hives Verified 09/26/17 23:35 duloxetine HCl Allergy Severe Hives Verified 09/26/17 23:35 [From Cymbalta] Penicillins Allergy Severe Anaphylaxis Verified 09/26/17 23:35 amoxicillin Allergy Verified 09/26/17 23:35 ampicillin Allergy Verified 09/26/17 23:35 Fish Containing Products Allergy Verified 09/26/17 23:35 gluten Allergy Verified 09/26/17 23:35 shellfish derived Allergy Verified 09/26/17 23:35 Sulfa (Sulfonamide Allergy Verified 09/26/17 23:35 Antibiotics) Medications: Current Medications Acetaminophen (Tylenol) 650 mg PO Q4H PRN PRN Reason: Headache/Fever or Pain Acetaminophen (Tylenol) 1,000 mg PO Q6H PRN PRN Reason: Moderate to Severe Pain (6-10) Hydrocodone Bitart/Acetaminophen ([place] 5/325) 1 tab PO Q4H PRN PRN Reason: Moderate Pain (4-6) Last Admin: 09/27/17 09:17 Dose: 1 tab Hydrocodone Bitart/Acetaminophen ([place] 5/325) 2 tab PO Q4H PRN PRN Reason: Severe Pain (7-10) Last Admin: 09/29/17 08:11 Dose: 2 tab Al Hydroxide/Mg Hydroxide (Maalox) 30 ml PO Q6H PRN PRN Reason: Heartburn or Indigestion Albuterol/Ipratropium (Duoneb) 3 ml NEB Q6H PRN PRN Reason: SOB &/or Wheezing Alogliptin Benzoate (Alogliptin) 25 mg PO DAILY [facility] Last Admin: 09/29/17 09:15 Dose: 25 mg Alprazolam (Xanax) 1 mg PO TIDPRN PRN PRN Reason: Anxiety Benzonatate (Tessalon) 100 mg PO Q4H PRN PRN Reason: Cough Bisacodyl (Dulcolax) 10 mg PO DAILYPRN PRN PRN Reason: Constipation Calcium Carbonate (Tums) 1,000 mg PO Q4H PRN PRN Reason: Heartburn or Indigestion Cholecalciferol (Vitamin D3) 2,000 units PO [facility] Last Admin: 09/28/17 20:34 Dose: 2,000 units Clonidine (Catapres) 0.1 mg PO Q4H PRN PRN Reason: Systolic BP > 160 Dextrose/Water (Dextrose 50%) 25 gm SLOW IVP PRN PRN PRN Reason: Hypoglycemia Enoxaparin Sodium (Lovenox) 30 mg SC 0900 [facility] Last Admin: 09/29/17 09:17 Dose: 30 mg Ferrous Sulfate (Feosol) 325 mg PO BID [facility] Last Admin: 09/29/17 09:16 Dose: 325 mg Glipizide (Glucotrol Xl) 10 mg PO BID [facility] Last Admin: 09/29/17 09:17 Dose: 10 mg Glucagon (Glucagon) 1 mg IM PRN PRN PRN Reason: Hypoglycemia Guaifenesin (Robitussin Sf) 200 mg PO Q4H PRN PRN Reason: Cough Hydralazine HCl (Apresoline) 10 mg SLOW IVP Q4H PRN PRN Reason: Systolic BP > 170 Dextrose/Water (D5w) 1,000 mls @ 0 mls/hr IV .Q0M PRN; As Directed PRN Reason: Hypoglycemia Sodium Chloride (Normal Saline 0.9%) 1,000 mls @ 100 mls/hr IV .Q10H [facility] Last Admin: 09/29/17 10:16 Dose: 1,000 mls Vancomycin HCl 1.5 gm/ Sodium (Chloride) 300 mls @ 200 mls/hr IVPB 2100 [facility] Last Admin: 09/28/17 20:57 Dose: 300 mls Meropenem 1 gm/ Miscellaneous Medication 1 each/ Sterile Water 20 mls @ 240 mls /hr SLOW IVP 0500,1300,2100 [facility] Last Admin: 09/29/17 04:02 Dose: 20 mls Insulin Human Lispro (Humalog) 0 units SC .MODERATE SLIDING SC PRN PRN Reason: Moderate Correctional Scale Last Admin: 09/29/17 05:42 Dose: 2 unit Insulin Human Lispro (Humalog) 0 units SC .BEDTIME SLIDING SC PRN PRN Reason: Bedtime Correctional Scale Last Admin: 09/28/17 20:58 Dose: 2 unit Lisinopril (Zestril) 10 mg PO DAILY [facility] Last Admin: 09/29/17 09:16 Dose: 10 mg Loratadine (Claritin) 10 mg PO DAILYPRN PRN PRN Reason: Sinus Symptoms Lorazepam (Ativan) 1 mg PO Q4H PRN PRN Reason: Anxiety/Agitation Last Admin: 09/27/17 12:19 Dose: 1 mg Melatonin (Melatonin) 9 mg PO HS [facility] Last Admin: 09/28/17 20:36 Dose: 9 mg Mometasone Furoate (Asmanex Hfa 100 Mcg) 1 puff INH BID-RT [facility] Last Admin: 09/29/17 06:35 Dose: 1 puff Multivitamins (Theragran) 1 tab PO DAILY [facility] Last Admin: 09/29/17 09:16 Dose: 1 tab Nitroglycerin (Nitrostat) 0.4 mg SL Q5MIN PRN PRN Reason: Chest Pain Nystatin (Mycostatin Powder) 1 gm TOP BID [facility] Last Admin: 09/29/17 10:15 Dose: 1 applic Ondansetron HCl (Zofran) 4 mg IVP Q6H PRN PRN Reason: Nausea/Vomiting Pantoprazole Sodium (Protonix) 40 mg PO DAILY [facility] Last Admin: 09/29/17 09:17 Dose: 40 mg Pregabalin (Lyrica) 150 mg PO BID [facility] Last Admin: 09/29/17 09:15 Dose: 150 mg Rosuvastatin Calcium (Crestor) 40 mg PO HS [facility] Last Admin: 09/28/17 20:38 Dose: 40 mg Senna (Senokot) 2 tab PO HSPRN PRN PRN Reason: Constipation Sertraline HCl (Zoloft) 200 mg PO [facility] Last Admin: 09/28/17 20:39 Dose: 200 mg Sodium Chloride (Flush - Normal Saline) 10 ml IVF Q12HR [facility] Last Admin: 09/29/17 10:15 Dose: 10 ml Sodium Chloride (Flush - Normal Saline) 10 ml IVF PRN PRN PRN Reason: Saline Flush Sumatriptan Succinate (Imitrex) 100 mg PO PRN PRN PRN Reason: Headache Tramadol HCl (Ultram) 100 mg PO Q6H PRN PRN Reason: Moderate Pain (4-6)
[2017-09-29] MEDS: Melatonin 3 MG TAB PO SCH (20:55)
[2017-09-29] MEDS: Rosuvastatin 20 MG TAB PO SCH (20:58)
[2017-09-29] MEDS: Vancomycin HCl 1.5 GM in Sodium Chloride 0.9% 250 ML 300 ML IVPB SCH (20:59)
[2017-09-30] MEDS: Meropenem 1 GM, Admixture Fee 1 EACH in Sterile Water 20 ML SLOW IVP SCH ×3 (05:19→18:30)
[2017-09-30] MEDS: Sodium Chloride 0.9% 1,000 ML IV SCH ×2 (05:20→19:05)
[2017-09-30] MEDS: Mometasone 100 MCG HFA INHALER INH SCH ×2 (07:05→19:06)
[2017-09-30] MEDS: HYDROcodone/Acetaminophen 5/325 mg Tablet PO PRN ×2 (07:19→21:05)
[2017-09-30] MEDS: Enoxaparin Sodium 30 MG/0.3 ML SYRINGE SC SCH (08:56)
[2017-09-30] MEDS: Ferrous Sulfate 325 MG TAB PO SCH ×2 (08:57→21:00)
[2017-09-30] MEDS: Alogliptin 25 MG TAB PO SCH (08:58)
[2017-09-30] MEDS: Lisinopril 10 MG TAB PO SCH (08:59)
[2017-09-30] MEDS: Multivit, Therapeutic 1 TAB PO SCH (08:59)
[2017-09-30] MEDS: Pregabalin 75 MG CAP PO SCH ×2 (09:17→21:00)
[2017-09-30] MEDS ORDERED: Lidocaine 4% Topical Sol 50 ML BOT TOP PRN (09:58)
[2017-09-30] MEDS: Nystatin Powder 15 GM BOT TOP SCH ×2 (12:00→21:01)
--- NOTE | 2017-09-30 12:47 | PDOC.PN ---
- Subjective Encounter Start Date: 09/30/17 Encounter Start Time: 09:30 Patient seen and examined. No new complaints. No overnight events - Objective MAR Reviewed: Yes Vital Signs & Weight: Vital Signs (12 hours) Temp Pulse Resp BP BP Pulse Ox 09/30/17 12:00 99 F 73 20 121/84 95 09/30/17 09:00 98.8 F 86 18 09/30/17 08:59 133/88 09/30/17 07:52 98.8 F 86 18 136/67 94 L 09/30/17 07:05 65 16 97 Weight Admit Weight 220 lb Weight 220 lb I&O: 09/29/17 09/30/17 10/01/17 06:59 06:59 06:59 Intake Total 3103 1017 Output Total 751 850 Balance 2352 167 Result Diagrams: 09/29/17 03:35 09/29/17 03:35 Additional Labs: Accuchecks 09/30/17 09/30/17 09/29/17 11:35 04:53 19:50 POC Glucose 131 H 96 131 H 09/29/17 16:37 POC Glucose 129 H Phys Exam - Physical Examination Constitutional: NAD HEENT: PERRLA, moist MMs, sclera anicteric Neck: no JVD, supple Respiratory: no wheezing, no rales, no rhonchi Cardiovascular: RRR, no significant murmur, no rub Gastrointestinal: soft, non-tender, no distention, positive bowel sounds Musculoskeletal: no edema, pulses present right foot with wound vac+ Neurological: non-focal, normal sensation Psychiatric: normal affect, A&O x 3 Skin: no rash, normal turgor Dx/Plan (1) Diabetic foot ulcer Code(s): E11.621 - TYPE 2 DIABETES MELLITUS WITH FOOT ULCER; L97.509 - NON- PRESSURE CHRONIC ULCER OTH PRT UNSP FOOT W UNSP SEVERITY Status: Acute Qualifiers: Laterality: right (2) Anxiety and depression Code(s): F41.8 - OTHER SPECIFIED ANXIETY DISORDERS Status: Chronic (3) CKD (chronic kidney disease), stage III Code(s): N18.3 - CHRONIC KIDNEY DISEASE, STAGE 3 (MODERATE) Status: Chronic (4) Diabetic neuropathy Code(s): E11.40 - TYPE 2 DIABETES MELLITUS WITH DIABETIC NEUROPATHY, UNSP Status: Chronic (5) Dyslipidemia Code(s): E78.5 - HYPERLIPIDEMIA, UNSPECIFIED Status: Chronic (6) GERD (gastroesophageal reflux disease) Code(s): K21.9 - GASTRO-ESOPHAGEAL REFLUX DISEASE WITHOUT ESOPHAGITIS Status: Chronic (7) Hypertension Code(s): I10 - ESSENTIAL (PRIMARY) HYPERTENSION Status: Chronic (8) Morbid obesity with BMI of 40.0-44.9, adult Code(s): E66.01 - MORBID (SEVERE) OBESITY DUE TO EXCESS CALORIES; Z68.41 - BODY MASS INDEX (BMI) 40.0-44.9, ADULT Status: Chronic - Plan cont current plan of care, plan discussed w/ 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, 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 Dyspnea, Edema, Light Headedness, Other Gastrointestinal: negative: Nausea, Vomiting, Abdominal Pain, Diarrhea, Constipation, Melena, Hematochezia, Other Genitourinary: negative: Dysuria, Frequency, Incontinence, Hematuria, Retention , Other Musculoskeletal: negative: Neck Pain, Shoulder Pain, Arm Pain, Back Pain, Hand Pain, Leg Pain, Foot Pain, Other - Medications/Allergies Allergies/Adverse Reactions: Allergies Allergy/AdvReac Type Severity Reaction Status Date / Time cefuroxime axetil Allergy Severe Anaphylaxis Verified 09/26/17 23:35 [From Ceftin] codeine Allergy Severe Hives Verified 09/26/17 23:35 duloxetine HCl Allergy Severe Hives Verified 09/26/17 23:35 [From Cymbalta] Penicillins Allergy Severe Anaphylaxis Verified 09/26/17 23:35 amoxicillin Allergy Verified 09/26/17 23:35 ampicillin Allergy Verified 09/26/17 23:35 Fish Containing Products Allergy Verified 09/26/17 23:35 gluten Allergy Verified 09/26/17 23:35 shellfish derived Allergy Verified 09/26/17 23:35 Sulfa (Sulfonamide Allergy Verified 09/26/17 23:35 Antibiotics) Medications: Current Medications Acetaminophen (Tylenol) 650 mg PO Q4H PRN PRN Reason: Headache/Fever or Pain Acetaminophen (Tylenol) 1,000 mg PO Q6H PRN PRN Reason: Moderate to Severe Pain (6-10) Hydrocodone Bitart/Acetaminophen ([place] 5/325) 1 tab PO Q4H PRN PRN Reason: Moderate Pain (4-6) Last Admin: 09/27/17 09:17 Dose: 1 tab Hydrocodone Bitart/Acetaminophen ([place] 5/325) 2 tab PO Q4H PRN PRN Reason: Severe Pain (7-10) Last Admin: 09/30/17 07:19 Dose: 2 tab Al Hydroxide/Mg Hydroxide (Maalox) 30 ml PO Q6H PRN PRN Reason: Heartburn or Indigestion Albuterol/Ipratropium (Duoneb) 3 ml NEB Q6H PRN PRN Reason: SOB &/or Wheezing Alogliptin Benzoate (Alogliptin) 25 mg PO DAILY COUNT INCLUDES THE [facility] Last Admin: 09/30/17 08:58 Dose: 25 mg Alprazolam (Xanax) 1 mg PO TIDPRN PRN PRN Reason: Anxiety Benzonatate (Tessalon) 100 mg PO Q4H PRN PRN Reason: Cough Bisacodyl (Dulcolax) 10 mg PO DAILYPRN PRN PRN Reason: Constipation Calcium Carbonate (Tums) 1,000 mg PO Q4H PRN PRN Reason: Heartburn or Indigestion Cholecalciferol (Vitamin D3) 2,000 units PO HS COUNT INCLUDES [facility] Last Admin: 09/29/17 20:54 Dose: 2,000 units Clonidine (Catapres) 0.1 mg PO Q4H PRN PRN Reason: Systolic BP > 160 Dextrose/Water (Dextrose 50%) 25 gm SLOW IVP PRN PRN PRN Reason: Hypoglycemia Enoxaparin Sodium (Lovenox) 30 mg SC 0900 COUNT INCLUDES [facility] Last Admin: 09/30/17 08:56 Dose: 30 mg Ferrous Sulfate (Feosol) 325 mg PO BID COUNT INCLUDES [facility] Last Admin: 09/30/17 08:57 Dose: 325 mg Glipizide (Glucotrol Xl) 10 mg PO BID COUNT INCLUDES [facility] Last Admin: 09/30/17 08:58 Dose: 10 mg Glucagon (Glucagon) 1 mg IM PRN PRN PRN Reason: Hypoglycemia Guaifenesin (Robitussin Sf) 200 mg PO Q4H PRN PRN Reason: Cough Hydralazine HCl (Apresoline) 10 mg SLOW IVP Q4H PRN PRN Reason: Systolic BP > 170 Dextrose/Water (D5w) 1,000 mls @ 0 mls/hr IV .Q0M PRN; As Directed PRN Reason: Hypoglycemia Sodium Chloride (Normal Saline 0.9%) 1,000 mls @ 100 mls/hr IV .Q10H COUNT INCLUDES THE [facility] Last Admin: 09/30/17 05:20 Dose: Not Given Vancomycin HCl 1.5 gm/ Sodium (Chloride) 300 mls @ 200 mls/hr IVPB 2100 COUNT INCLUDES THE [facility] Last Admin: 09/29/17 20:59 Dose: 300 mls Meropenem 1 gm/ Miscellaneous Medication 1 each/ Sterile Water 20 mls @ 240 mls /hr SLOW IVP 0500,1300,2100 COUNT INCLUDES THE [facility] Last Admin: 09/30/17 05:19 Dose: 20 mls Insulin Human Lispro (Humalog) 0 units SC .MODERATE SLIDING SC PRN PRN Reason: Moderate Correctional Scale Last Admin: 09/29/17 05:42 Dose: 2 unit Insulin Human Lispro (Humalog) 0 units SC .BEDTIME SLIDING SC PRN PRN Reason: Bedtime Correctional Scale Last Admin: 09/28/17 20:58 Dose: 2 unit Lidocaine HCl (Xylocaine 4% Topical Mariza) 0 ml TOP PRN PRN PRN Reason: DRESSING CHANGES Lisinopril (Zestril) 10 mg PO DAILY COUNT INCLUDES [facility] Last Admin: 09/30/17 08:59 Dose: 10 mg Loratadine (Claritin) 10 mg PO DAILYPRN PRN PRN Reason: Sinus Symptoms Lorazepam (Ativan) 1 mg PO Q4H PRN PRN Reason: Anxiety/Agitation Last Admin: 09/27/17 12:19 Dose: 1 mg Melatonin (Melatonin) 9 mg PO HS COUNT INCLUDES [facility] Last Admin: 09/29/17 20:55 Dose: 9 mg Mometasone Furoate (Asmanex Hfa 100 Mcg) 1 puff INH BID-RT COUNT INCLUDES THE [facility] Last Admin: 09/30/17 07:05 Dose: 1 puff Multivitamins (Theragran) 1 tab PO DAILY COUNT INCLUDES [facility] Last Admin: 09/30/17 08:59 Dose: 1 tab Nitroglycerin (Nitrostat) 0.4 mg SL Q5MIN PRN PRN Reason: Chest Pain Nystatin (Mycostatin Powder) 1 gm TOP BID COUNT INCLUDES [facility] Last Admin: 09/29/17 20:56 Dose: 1 applic Ondansetron HCl (Zofran) 4 mg IVP Q6H PRN PRN Reason: Nausea/Vomiting Pantoprazole Sodium (Protonix) 40 mg PO DAILY COUNT INCLUDES [facility] Last Admin: 09/30/17 08:59 Dose: 40 mg Pregabalin (Lyrica) 150 mg PO BID COUNT INCLUDES [facility] Last Admin: 09/30/17 09:17 Dose: 150 mg Rosuvastatin Calcium (Crestor) 40 mg PO HS COUNT INCLUDES [facility] Last Admin: 09/29/17 20:58 Dose: 40 mg Senna (Senokot) 2 tab PO HSPRN PRN PRN Reason: Constipation Sertraline HCl (Zoloft) 200 mg PO HS COUNT INCLUDES [facility] Last Admin: 09/29/17 20:58 Dose: 200 mg Sodium Chloride (Flush - Normal Saline) 10 ml IVF Q12HR COUNT INCLUDES THE [facility] Last Admin: 09/30/17 09:01 Dose: 10 ml Sodium Chloride (Flush - Normal Saline) 10 ml IVF PRN PRN PRN Reason: Saline Flush Sumatriptan Succinate (Imitrex) 100 mg PO PRN PRN PRN Reason: Headache Tramadol HCl (Ultram) 100 mg PO Q6H PRN PRN Reason: Moderate Pain (4-6)
[2017-09-30] MEDS ORDERED: Activase 2 MG VIAL CATH SCH (15:00)
[2017-09-30] MEDS ORDERED: Sterile Water 10 ML VIAL IVP SCH (15:00)
[2017-09-30] MEDS: Rifampin 300 MG CAP PO SCH (20:59)
[2017-09-30] MEDS: Rosuvastatin 20 MG TAB PO SCH (21:00)
[2017-09-30] MEDS: Ciprofloxacin 500 MG TAB PO SCH (21:00)
[2017-09-30] MEDS: Melatonin 3 MG TAB PO SCH (21:00)
--- NOTE | 2017-09-30 23:11 | PRG ---
DATE OF SERVICE: 09/30/2017 This 52-year-old female is status post amputation of her small toe and metatarsal wound left open fo r healing by secondary intention, wound VAC applied. She is without insurance and Wound Care is ainsley lying for a charitable VAC, this should be available tomorrow or Tuesday. She can be discharged ho me with outpatient VAC. She has an outpatient [facility] for VAC car e. Patient has had a cephalic vein IV placed that is not working. She needs oral antibiotics as an outpatient. Would recommend discontinuing IV antibiotics and change to oral. She could be on Bact rim DS twice a day as well as rifampin. The wound looked good today with wound VAC change. She dell uld follow up in my office in 2-3 weeks. I could be called during her outpatient visit to Wound Car e to view her wound in the next 2 weeks to save her another trip to my office.
[2017-10-01] MEDS: HYDROcodone/Acetaminophen 5/325 mg Tablet PO PRN ×2 (01:09→22:30)
[2017-10-01] MEDS: Ciprofloxacin 500 MG TAB PO SCH ×2 (05:16→21:15)
[2017-10-01] MEDS: Mometasone 100 MCG HFA INHALER INH SCH ×2 (07:59→18:29)
[2017-10-01] MEDS: Alogliptin 25 MG TAB PO SCH (08:38)
[2017-10-01] MEDS: Ferrous Sulfate 325 MG TAB PO SCH ×2 (08:38→21:15)
[2017-10-01] MEDS: Multivit, Therapeutic 1 TAB PO SCH (08:39)
[2017-10-01] MEDS: Lisinopril 10 MG TAB PO SCH (08:39)
[2017-10-01] MEDS: Pregabalin 75 MG CAP PO SCH ×2 (08:40→21:16)
[2017-10-01] MEDS: Rifampin 300 MG CAP PO SCH ×2 (08:41→21:21)
[2017-10-01] MEDS: Enoxaparin Sodium 30 MG/0.3 ML SYRINGE SC SCH (08:44)
--- NOTE | 2017-10-01 11:01 | PDOC.PN ---
- Subjective Encounter Start Date: 10/01/17 Encounter Start Time: 08:30 Subjective: feels better, no pain now - Objective MAR Reviewed: Yes Vital Signs & Weight: Vital Signs (12 hours) Temp Pulse Resp BP BP Pulse Ox 10/01/17 09:00 98.4 F 80 20 10/01/17 08:39 133/88 10/01/17 07:59 80 20 93 L 10/01/17 07:08 97.5 F L 64 16 139/86 95 Weight Admit Weight 220 lb Weight 220 lb I&O: 09/30/17 10/01/17 10/02/17 06:59 06:59 05:59 Intake Total 1017 500 Output Total 850 Balance 167 500 Result Diagrams: 09/29/17 03:35 09/29/17 03:35 Additional Labs: Accuchecks 10/01/17 09/30/17 09/30/17 05:18 20:54 15:29 POC Glucose 64 L 96 111 H 09/30/17 11:35 POC Glucose 131 H Phys Exam - Physical Examination HEENT: PERRLA, moist MMs Neck: no JVD, supple Respiratory: no wheezing, no rales Cardiovascular: RRR, no significant murmur Gastrointestinal: soft, non-tender, positive bowel sounds Musculoskeletal: pulses present right foot in wound vac Neurological: non-focal, moves all 4 limbs Psychiatric: A&O x 3 Dx/Plan (1) Diabetic foot ulcer Code(s): E11.621 - TYPE 2 DIABETES MELLITUS WITH FOOT ULCER; L97.509 - NON- PRESSURE CHRONIC ULCER OTH PRT UNSP FOOT W UNSP SEVERITY Status: Acute Qualifiers: Diabetic foot ulcer location: toe Diabetes mellitus type: type 2 Laterality: right (2) Status post amputation of lesser toe of right foot Code(s): Z89.421 - ACQUIRED ABSENCE OF OTHER RIGHT TOE(S) Status: Acute Comment: with metatarsal (3) Anxiety and depression Code(s): F41.8 - OTHER SPECIFIED ANXIETY DISORDERS Status: Chronic (4) CKD (chronic kidney disease), stage III Code(s): N18.3 - CHRONIC KIDNEY DISEASE, STAGE 3 (MODERATE) Status: Chronic (5) Diabetic neuropathy Code(s): E11.40 - TYPE 2 DIABETES MELLITUS WITH DIABETIC NEUROPATHY, UNSP Status: Chronic Qualifiers: Diabetes mellitus type: type 2 Diabetes mellitus complication detail: diabetic polyneuropathy Qualified Code(s): E11.42 - Type 2 diabetes mellitus with diabetic polyneuropathy (6) Dyslipidemia Code(s): E78.5 - HYPERLIPIDEMIA, UNSPECIFIED Status: Chronic (7) GERD (gastroesophageal reflux disease) Code(s): K21.9 - GASTRO-ESOPHAGEAL REFLUX DISEASE WITHOUT ESOPHAGITIS Status: Chronic Qualifiers: Esophagitis presence: esophagitis presence not specified Qualified Code(s) : K21.9 - Gastro-esophageal reflux disease without esophagitis (8) Hypertension Code(s): I10 - ESSENTIAL (PRIMARY) HYPERTENSION Status: Chronic Qualifiers: Hypertension type: essential hypertension Qualified Code(s): I10 - Essential (primary) hypertension (9) Morbid obesity with BMI of 40.0-44.9, adult Code(s): E66.01 - MORBID (SEVERE) OBESITY DUE TO EXCESS CALORIES; Z68.41 - BODY MASS INDEX (BMI) 40.0-44.9, ADULT Status: Chronic - Plan is on cipro and rifampin -: wound in wound vac -: awaiting wound vac for outpt use -: diabetes in good control on current meds -: to amb as tolerated * . Review of Systems - Medications/Allergies Allergies/Adverse Reactions: Allergies Allergy/AdvReac Type Severity Reaction Status Date / Time cefuroxime axetil Allergy Severe Anaphylaxis Verified 09/26/17 23:35 [From Ceftin] codeine Allergy Severe Hives Verified 09/26/17 23:35 duloxetine HCl Allergy Severe Hives Verified 09/26/17 23:35 [From Cymbalta] Penicillins Allergy Severe Anaphylaxis Verified 09/26/17 23:35 amoxicillin Allergy Verified 09/26/17 23:35 ampicillin Allergy Verified 09/26/17 23:35 Fish Containing Products Allergy Verified 09/26/17 23:35 gluten Allergy Verified 09/26/17 23:35 shellfish derived Allergy Verified 09/26/17 23:35 Sulfa (Sulfonamide Allergy Verified 09/26/17 23:35 Antibiotics) Medications: Current Medications Acetaminophen (Tylenol) 650 mg PO Q4H PRN PRN Reason: Headache/Fever or Pain Acetaminophen (Tylenol) 1,000 mg PO Q6H PRN PRN Reason: Moderate to Severe Pain (6-10) Hydrocodone Bitart/Acetaminophen ([place] 5/325) 1 tab PO Q4H PRN PRN Reason: Moderate Pain (4-6) Last Admin: 09/27/17 09:17 Dose: 1 tab Hydrocodone Bitart/Acetaminophen ([place] 5/325) 2 tab PO Q4H PRN PRN Reason: Severe Pain (7-10) Last Admin: 10/01/17 01:09 Dose: 2 tab Al Hydroxide/Mg Hydroxide (Maalox) 30 ml PO Q6H PRN PRN Reason: Heartburn or Indigestion Albuterol/Ipratropium (Duoneb) 3 ml NEB Q6H PRN PRN Reason: SOB &/or Wheezing Alogliptin Benzoate (Alogliptin) 25 mg PO DAILY [facility] Last Admin: 10/01/17 08:38 Dose: 25 mg Alprazolam (Xanax) 1 mg PO TIDPRN PRN PRN Reason: Anxiety Last Admin: 09/30/17 17:29 Dose: 1 mg Benzonatate (Tessalon) 100 mg PO Q4H PRN PRN Reason: Cough Bisacodyl (Dulcolax) 10 mg PO DAILYPRN PRN PRN Reason: Constipation Calcium Carbonate (Tums) 1,000 mg PO Q4H PRN PRN Reason: Heartburn or Indigestion Cholecalciferol (Vitamin D3) 2,000 units PO HS [facility] Last Admin: 09/30/17 20:59 Dose: 2,000 units Ciprofloxacin (Cipro) 500 mg PO 0600,2000 [facility] Last Admin: 10/01/17 05:16 Dose: 500 mg Clonidine (Catapres) 0.1 mg PO Q4H PRN PRN Reason: Systolic BP > 160 Dextrose/Water (Dextrose 50%) 25 gm SLOW IVP PRN PRN PRN Reason: Hypoglycemia Enoxaparin Sodium (Lovenox) 30 mg SC 0900 [facility] Last Admin: 10/01/17 08:44 Dose: 30 mg Ferrous Sulfate (Feosol) 325 mg PO BID [facility] Last Admin: 10/01/17 08:38 Dose: 325 mg Glipizide (Glucotrol Xl) 10 mg PO BID [facility] Last Admin: 10/01/17 08:39 Dose: 10 mg Glucagon (Glucagon) 1 mg IM PRN PRN PRN Reason: Hypoglycemia Guaifenesin (Robitussin Sf) 200 mg PO Q4H PRN PRN Reason: Cough Hydralazine HCl (Apresoline) 10 mg SLOW IVP Q4H PRN PRN Reason: Systolic BP > 170 Dextrose/Water (D5w) 1,000 mls @ 0 mls/hr IV .Q0M PRN; As Directed PRN Reason: Hypoglycemia Insulin Human Lispro (Humalog) 0 units SC .MODERATE SLIDING SC PRN PRN Reason: Moderate Correctional Scale Last Admin: 09/29/17 05:42 Dose: 2 unit Insulin Human Lispro (Humalog) 0 units SC .BEDTIME SLIDING SC PRN PRN Reason: Bedtime Correctional Scale Last Admin: 09/28/17 20:58 Dose: 2 unit Lidocaine HCl (Xylocaine 4% Topical Mariza) 0 ml TOP PRN PRN PRN Reason: DRESSING CHANGES Lisinopril (Zestril) 10 mg PO DAILY [facility] Last Admin: 10/01/17 08:39 Dose: 10 mg Loratadine (Claritin) 10 mg PO DAILYPRN PRN PRN Reason: Sinus Symptoms Lorazepam (Ativan) 1 mg PO Q4H PRN PRN Reason: Anxiety/Agitation Last Admin: 09/27/17 12:19 Dose: 1 mg Melatonin (Melatonin) 9 mg PO HS [facility] Last Admin: 09/30/17 21:00 Dose: 9 mg Mometasone Furoate (Asmanex Hfa 100 Mcg) 1 puff INH BID-RT [facility] Last Admin: 10/01/17 07:59 Dose: 1 puff Multivitamins (Theragran) 1 tab PO DAILY [facility] Last Admin: 10/01/17 08:39 Dose: 1 tab Nitroglycerin (Nitrostat) 0.4 mg SL Q5MIN PRN PRN Reason: Chest Pain Nystatin (Mycostatin Powder) 1 gm TOP BID [facility] Last Admin: 09/30/17 21:01 Dose: 1 appful Ondansetron HCl (Zofran) 4 mg IVP Q6H PRN PRN Reason: Nausea/Vomiting Pantoprazole Sodium (Protonix) 40 mg PO DAILY [facility] Last Admin: 10/01/17 08:39 Dose: 40 mg Pregabalin (Lyrica) 150 mg PO BID [facility] Last Admin: 10/01/17 08:40 Dose: 150 mg Rifampin (Rifadin) 300 mg PO 1000,2200 [facility] Last Admin: 10/01/17 08:41 Dose: 300 mg Rosuvastatin Calcium (Crestor) 40 mg PO HS [facility] Last Admin: 09/30/17 21:00 Dose: 40 mg Senna (Senokot) 2 tab PO HSPRN PRN PRN Reason: Constipation Sertraline HCl (Zoloft) 200 mg PO HS [facility] Last Admin: 09/30/17 20:59 Dose: 200 mg Sodium Chloride (Flush - Normal Saline) 10 ml IVF Q12HR [facility] Last Admin: 09/30/17 21:01 Dose: 10 ml Sodium Chloride (Flush - Normal Saline) 10 ml IVF PRN PRN PRN Reason: Saline Flush Sodium Chloride (Flush - Normal Saline) 10 ml IVF PRN PRN PRN Reason: Saline Flush Sumatriptan Succinate (Imitrex) 100 mg PO PRN PRN PRN Reason: Headache Tramadol HCl (Ultram) 100 mg PO Q6H PRN PRN Reason: Moderate Pain (4-6)
[2017-10-01] MEDS: HumaLOG 300 UNITS/3 ML VIAL SC PRN (11:54)
[2017-10-01] MEDS: Nystatin Powder 15 GM BOT TOP SCH ×2 (16:26→21:22)
[2017-10-01] MEDS: Rosuvastatin 20 MG TAB PO SCH (21:20)
[2017-10-01] MEDS: Melatonin 3 MG TAB PO SCH (22:29)
[2017-10-02 05:32] LABS: Anion Gap 12 mmol/L (10-20); BUN (Urea Nitrogen) 18 mg/dL (9.8-20.1); Calc. Creatinine Clearance 85 mL/min (70-130); Calcium 9.2 mg/dL (7.8-10.44); Carbon Dioxide 27 mmol/L (22-29); Chloride 107 mmol/L (98-107); Estimated GFR-MDRD 47
[2017-10-02] MEDS: Ciprofloxacin 500 MG TAB PO SCH ×2 (05:37→20:33)
[2017-10-02] MEDS: HYDROcodone/Acetaminophen 5/325 mg Tablet PO PRN ×2 (05:48→20:35)
[2017-10-02] MEDS: Mometasone 100 MCG HFA INHALER INH SCH ×2 (07:37→18:49)
[2017-10-02] MEDS: Nystatin Powder 15 GM BOT TOP SCH ×2 (08:32→20:51)
[2017-10-02] MEDS: Alogliptin 25 MG TAB PO SCH (08:33)
[2017-10-02] MEDS: Ferrous Sulfate 325 MG TAB PO SCH ×2 (08:33→20:32)
[2017-10-02] MEDS: Lisinopril 10 MG TAB PO SCH (08:33)
[2017-10-02] MEDS: Multivit, Therapeutic 1 TAB PO SCH (08:34)
[2017-10-02] MEDS: Pregabalin 75 MG CAP PO SCH ×2 (08:35→20:31)
[2017-10-02] MEDS: Enoxaparin Sodium 30 MG/0.3 ML SYRINGE SC SCH (08:36)
[2017-10-02] MEDS: Rifampin 300 MG CAP PO SCH ×2 (08:36→20:50)
--- NOTE | 2017-10-02 11:52 | PDOC.PN ---
- Subjective Encounter Start Date: 10/02/17 Encounter Start Time: 09:00 Subjective: feels better, is amb in room - Objective MAR Reviewed: Yes Vital Signs & Weight: Vital Signs (12 hours) Temp Pulse Resp BP BP Pulse Ox 10/02/17 09:00 98.4 F 65 16 10/02/17 08:33 133/88 10/02/17 08:13 98.4 F 65 16 136/80 96 10/02/17 07:37 65 20 96 10/02/17 01:20 [employer] 78 16 98 Weight Admit Weight 220 lb Weight 220 lb I&O: 10/01/17 10/02/17 10/03/17 07:59 06:59 06:59 Intake Total Balance Result Diagrams: 09/29/17 03:35 10/02/17 04:34 Additional Labs: Accuchecks 10/02/17 10/02/17 10/01/17 11:03 05:11 21:12 POC Glucose 133 H 71 134 H 10/01/17 16:17 POC Glucose 83 Phys Exam - Physical Examination HEENT: PERRLA, moist MMs Neck: no JVD, supple Respiratory: no wheezing, no rales Cardiovascular: RRR, no significant murmur Gastrointestinal: soft, non-tender, positive bowel sounds Musculoskeletal: pulses present right foot in wound vac Neurological: non-focal, moves all 4 limbs Psychiatric: A&O x 3 Dx/Plan (1) Diabetic foot ulcer Code(s): E11.621 - TYPE 2 DIABETES MELLITUS WITH FOOT ULCER; L97.509 - NON- PRESSURE CHRONIC ULCER OTH PRT UNSP FOOT W UNSP SEVERITY Status: Acute Qualifiers: Diabetic foot ulcer location: toe Diabetes mellitus type: type 2 Laterality: right (2) Status post amputation of lesser toe of right foot Code(s): Z89.421 - ACQUIRED ABSENCE OF OTHER RIGHT TOE(S) Status: Acute Comment: with metatarsal (3) Anxiety and depression Code(s): F41.8 - OTHER SPECIFIED ANXIETY DISORDERS Status: Chronic (4) CKD (chronic kidney disease), stage III Code(s): N18.3 - CHRONIC KIDNEY DISEASE, STAGE 3 (MODERATE) Status: Chronic (5) Diabetic neuropathy Code(s): E11.40 - TYPE 2 DIABETES MELLITUS WITH DIABETIC NEUROPATHY, UNSP Status: Chronic Qualifiers: Diabetes mellitus type: type 2 Diabetes mellitus complication detail: diabetic polyneuropathy Qualified Code(s): E11.42 - Type 2 diabetes mellitus with diabetic polyneuropathy (6) Dyslipidemia Code(s): E78.5 - HYPERLIPIDEMIA, UNSPECIFIED Status: Chronic (7) GERD (gastroesophageal reflux disease) Code(s): K21.9 - GASTRO-ESOPHAGEAL REFLUX DISEASE WITHOUT ESOPHAGITIS Status: Chronic Qualifiers: Esophagitis presence: esophagitis presence not specified Qualified Code(s) : K21.9 - Gastro-esophageal reflux disease without esophagitis (8) Hypertension Code(s): I10 - ESSENTIAL (PRIMARY) HYPERTENSION Status: Chronic Qualifiers: Hypertension type: essential hypertension Qualified Code(s): I10 - Essential (primary) hypertension (9) Morbid obesity with BMI of 40.0-44.9, adult Code(s): E66.01 - MORBID (SEVERE) OBESITY DUE TO EXCESS CALORIES; Z68.41 - BODY MASS INDEX (BMI) 40.0-44.9, ADULT Status: Chronic - Plan is on cipro and rifampin -: educated pt regarding orange col of urine due to rifampin -: awaiting wound vac for dc plan * . Review of Systems - Medications/Allergies Allergies/Adverse Reactions: Allergies Allergy/AdvReac Type Severity Reaction Status Date / Time cefuroxime axetil Allergy Severe Anaphylaxis Verified 09/26/17 23:35 [From Ceftin] codeine Allergy Severe Hives Verified 09/26/17 23:35 duloxetine HCl Allergy Severe Hives Verified 09/26/17 23:35 [From Cymbalta] Penicillins Allergy Severe Anaphylaxis Verified 09/26/17 23:35 amoxicillin Allergy Verified 09/26/17 23:35 ampicillin Allergy Verified 09/26/17 23:35 Fish Containing Products Allergy Verified 09/26/17 23:35 gluten Allergy Verified 09/26/17 23:35 shellfish derived Allergy Verified 09/26/17 23:35 Sulfa (Sulfonamide Allergy Verified 09/26/17 23:35 Antibiotics) Medications: Current Medications Acetaminophen (Tylenol) 650 mg PO Q4H PRN PRN Reason: Headache/Fever or Pain Acetaminophen (Tylenol) 1,000 mg PO Q6H PRN PRN Reason: Moderate to Severe Pain (6-10) Hydrocodone Bitart/Acetaminophen ([place] 5/325) 1 tab PO Q4H PRN PRN Reason: Moderate Pain (4-6) Last Admin: 10/02/17 05:48 Dose: 1 tab Hydrocodone Bitart/Acetaminophen ([place] 5/325) 2 tab PO Q4H PRN PRN Reason: Severe Pain (7-10) Last Admin: 10/01/17 01:09 Dose: 2 tab Al Hydroxide/Mg Hydroxide (Maalox) 30 ml PO Q6H PRN PRN Reason: Heartburn or Indigestion Albuterol/Ipratropium (Duoneb) 3 ml NEB Q6H PRN PRN Reason: SOB &/or Wheezing Alogliptin Benzoate (Alogliptin) 25 mg PO DAILY [facility] Last Admin: 10/02/17 08:33 Dose: 25 mg Alprazolam (Xanax) 1 mg PO TIDPRN PRN PRN Reason: Anxiety Last Admin: 09/30/17 17:29 Dose: 1 mg Benzonatate (Tessalon) 100 mg PO Q4H PRN PRN Reason: Cough Bisacodyl (Dulcolax) 10 mg PO DAILYPRN PRN PRN Reason: Constipation Calcium Carbonate (Tums) 1,000 mg PO Q4H PRN PRN Reason: Heartburn or Indigestion Cholecalciferol (Vitamin D3) 2,000 units PO HS [facility] Last Admin: 10/01/17 21:15 Dose: 2,000 units Ciprofloxacin (Cipro) 500 mg PO 0600,2000 [facility] Last Admin: 10/02/17 05:37 Dose: 500 mg Clonidine (Catapres) 0.1 mg PO Q4H PRN PRN Reason: Systolic BP > 160 Dextrose/Water (Dextrose 50%) 25 gm SLOW IVP PRN PRN PRN Reason: Hypoglycemia Enoxaparin Sodium (Lovenox) 30 mg SC 0900 [facility] Last Admin: 10/02/17 08:36 Dose: 30 mg Ferrous Sulfate (Feosol) 325 mg PO BID [facility] Last Admin: 10/02/17 08:33 Dose: 325 mg Glipizide (Glucotrol Xl) 10 mg PO BID [facility] Last Admin: 10/02/17 08:33 Dose: 10 mg Glucagon (Glucagon) 1 mg IM PRN PRN PRN Reason: Hypoglycemia Guaifenesin (Robitussin Sf) 200 mg PO Q4H PRN PRN Reason: Cough Hydralazine HCl (Apresoline) 10 mg SLOW IVP Q4H PRN PRN Reason: Systolic BP > 170 Dextrose/Water (D5w) 1,000 mls @ 0 mls/hr IV .Q0M PRN; As Directed PRN Reason: Hypoglycemia Insulin Human Lispro (Humalog) 0 units SC .MODERATE SLIDING SC PRN PRN Reason: Moderate Correctional Scale Last Admin: 10/01/17 11:54 Dose: 2 unit Insulin Human Lispro (Humalog) 0 units SC .BEDTIME SLIDING SC PRN PRN Reason: Bedtime Correctional Scale Last Admin: 09/28/17 20:58 Dose: 2 unit Lidocaine HCl (Xylocaine 4% Topical Mariza) 0 ml TOP PRN PRN PRN Reason: DRESSING CHANGES Lisinopril (Zestril) 10 mg PO DAILY [facility] Last Admin: 10/02/17 08:33 Dose: 10 mg Loratadine (Claritin) 10 mg PO DAILYPRN PRN PRN Reason: Sinus Symptoms Lorazepam (Ativan) 1 mg PO Q4H PRN PRN Reason: Anxiety/Agitation Last Admin: 09/27/17 12:19 Dose: 1 mg Melatonin (Melatonin) 9 mg PO HS [facility] Last Admin: 10/01/17 22:29 Dose: 9 mg Mometasone Furoate (Asmanex Hfa 100 Mcg) 1 puff INH BID-RT [facility] Last Admin: 10/02/17 07:37 Dose: 1 puff Multivitamins (Theragran) 1 tab PO DAILY [facility] Last Admin: 10/02/17 08:34 Dose: 1 tab Nitroglycerin (Nitrostat) 0.4 mg SL Q5MIN PRN PRN Reason: Chest Pain Nystatin (Mycostatin Powder) 1 gm TOP BID [facility] Last Admin: 10/02/17 08:32 Dose: 1 appful Ondansetron HCl (Zofran) 4 mg IVP Q6H PRN PRN Reason: Nausea/Vomiting Pantoprazole Sodium (Protonix) 40 mg PO DAILY [facility] Last Admin: 10/02/17 08:34 Dose: 40 mg Pregabalin (Lyrica) 150 mg PO BID [facility] Last Admin: 10/02/17 08:35 Dose: 150 mg Rifampin (Rifadin) 300 mg PO 1000,2200 [facility] Last Admin: 10/02/17 08:36 Dose: 300 mg Rosuvastatin Calcium (Crestor) 40 mg PO HS [facility] Last Admin: 10/01/17 21:20 Dose: 40 mg Senna (Senokot) 2 tab PO HSPRN PRN PRN Reason: Constipation Sertraline HCl (Zoloft) 200 mg PO HS [facility] Last Admin: 10/01/17 21:20 Dose: 200 mg Sodium Chloride (Flush - Normal Saline) 10 ml IVF Q12HR [facility] Last Admin: 10/01/17 21:23 Dose: Not Given Sodium Chloride (Flush - Normal Saline) 10 ml IVF PRN PRN PRN Reason: Saline Flush Sodium Chloride (Flush - Normal Saline) 10 ml IVF PRN PRN PRN Reason: Saline Flush Sumatriptan Succinate (Imitrex) 100 mg PO PRN PRN PRN Reason: Headache Tramadol HCl (Ultram) 100 mg PO Q6H PRN PRN Reason: Moderate Pain (4-6)
[2017-10-02] MEDS: Lorazepam 1 MG TAB PO PRN (17:02)
[2017-10-02] MEDS: HumaLOG 300 UNITS/3 ML VIAL SC PRN (17:16)
[2017-10-02] MEDS: Rosuvastatin 20 MG TAB PO SCH (20:32)
[2017-10-02] MEDS: Melatonin 3 MG TAB PO SCH (20:50)
[2017-10-03] MEDS: HYDROcodone/Acetaminophen 5/325 mg Tablet PO PRN (05:52)
[2017-10-03] MEDS: Ciprofloxacin 500 MG TAB PO SCH (05:53)
[2017-10-03] MEDS: Mometasone 100 MCG HFA INHALER INH SCH (08:24)
[2017-10-03 08:56] VITALS: TEMP 98.3
[2017-10-03] MEDS: Alogliptin 25 MG TAB PO SCH (09:43)
[2017-10-03] MEDS: Lisinopril 10 MG TAB PO SCH (09:43)
[2017-10-03] MEDS: Multivit, Therapeutic 1 TAB PO SCH (09:43)
[2017-10-03] MEDS: Pregabalin 75 MG CAP PO SCH (09:43)
[2017-10-03] MEDS: Ferrous Sulfate 325 MG TAB PO SCH (09:43)
[2017-10-03] MEDS: Rifampin 300 MG CAP PO SCH (09:45)
[2017-10-03] MEDS: Enoxaparin Sodium 30 MG/0.3 ML SYRINGE SC SCH (09:46)
[2017-10-03] MEDS: Nystatin Powder 15 GM BOT TOP SCH (09:47)
[2017-10-03 09:52] VITALS: BP 133/88
--- NOTE | 2017-10-03 11:30 | PDOC.PN ---
- Subjective Encounter Start Date: 10/03/17 Encounter Start Time: 07:15 Subjective: is amb with PT -: feels better - Objective MAR Reviewed: Yes Vital Signs & Weight: Vital Signs (12 hours) Temp Pulse Resp BP BP Pulse Ox 10/03/17 09:43 133/88 10/03/17 08:00 98.3 F 67 18 162/63 H 97 Weight Admit Weight 220 lb Weight 220 lb I&O: 10/02/17 10/03/17 10/04/17 06:59 06:59 06:59 Intake Total 960 Output Total 10 Balance 950 Result Diagrams: 09/29/17 03:35 10/02/17 04:34 Additional Labs: Accuchecks 10/03/17 10/02/17 10/02/17 04:08 19:56 15:45 POC Glucose 117 H 164 H 187 H Phys Exam - Physical Examination HEENT: PERRLA, moist MMs Neck: no JVD, supple Respiratory: no wheezing, no rales Cardiovascular: RRR, no significant murmur Gastrointestinal: soft, non-tender, positive bowel sounds Musculoskeletal: pulses present right foot in dressing Neurological: non-focal, moves all 4 limbs Psychiatric: A&O x 3 Dx/Plan (1) Diabetic foot ulcer Code(s): E11.621 - TYPE 2 DIABETES MELLITUS WITH FOOT ULCER; L97.509 - NON- PRESSURE CHRONIC ULCER OTH PRT UNSP FOOT W UNSP SEVERITY Status: Acute Qualifiers: Diabetic foot ulcer location: toe Diabetes mellitus type: type 2 Laterality: right (2) Status post amputation of lesser toe of right foot Code(s): Z89.421 - ACQUIRED ABSENCE OF OTHER RIGHT TOE(S) Status: Acute Comment: with metatarsal (3) Anxiety and depression Code(s): F41.8 - OTHER SPECIFIED ANXIETY DISORDERS Status: Chronic (4) CKD (chronic kidney disease), stage III Code(s): N18.3 - CHRONIC KIDNEY DISEASE, STAGE 3 (MODERATE) Status: Chronic (5) Diabetic neuropathy Code(s): E11.40 - TYPE 2 DIABETES MELLITUS WITH DIABETIC NEUROPATHY, UNSP Status: Chronic Qualifiers: Diabetes mellitus type: type 2 Diabetes mellitus complication detail: diabetic polyneuropathy Qualified Code(s): E11.42 - Type 2 diabetes mellitus with diabetic polyneuropathy (6) Dyslipidemia Code(s): E78.5 - HYPERLIPIDEMIA, UNSPECIFIED Status: Chronic (7) GERD (gastroesophageal reflux disease) Code(s): K21.9 - GASTRO-ESOPHAGEAL REFLUX DISEASE WITHOUT ESOPHAGITIS Status: Chronic Qualifiers: Esophagitis presence: esophagitis presence not specified Qualified Code(s) : K21.9 - Gastro-esophageal reflux disease without esophagitis (8) Hypertension Code(s): I10 - ESSENTIAL (PRIMARY) HYPERTENSION Status: Chronic Qualifiers: Hypertension type: essential hypertension Qualified Code(s): I10 - Essential (primary) hypertension (9) Morbid obesity with BMI of 40.0-44.9, adult Code(s): E66.01 - MORBID (SEVERE) OBESITY DUE TO EXCESS CALORIES; Z68.41 - BODY MASS INDEX (BMI) 40.0-44.9, ADULT Status: Chronic - Plan her wound vac is approved today -: dc pt home -: to f/u with wound care and as adv * .
--- NOTE | 2017-10-03 19:55 | DIS ---
DATE OF ADMISSION: 09/26/2017 DATE OF DISCHARGE: 10/03/2017 DISCHARGE DISPOSITION: To home. PRIMARY DISCHARGE DIAGNOSIS: Status post amputation of right fifth toe with metatarsal for diabetic ulcer. SECONDARY DISCHARGE DIAGNOSES: Diabetes mellitus type 2, chronic kidney disease stage 3, anxiety, d iabetic neuropathy, dyslipidemia, hypertension, morbid obesity, and gastroesophageal reflux disease. PROCEDURES DONE DURING HOSPITALIZATION: The patient has had amputation of right fifth toe with meta tarsal with application of wound VAC done by Dr. Vaughan on 09/28/2017. Foot x-ray done on the day o f admission showed soft tissue wound involving the lateral aspect of the right foot without radiogra phic evidence for osteomyelitis. There was a healed fracture deformity of fifth metatarsal shaft. Blood cultures x2 no growth. Had a white count of 15 on the day of admission, discharge numbers of 9. Admitting BUN and creatinine were 32 and 1.5. CRP was 5.32. DISCHARGE MEDICATIONS: Ciprofloxacin 500 mg p.o. twice daily for another 5 days, rifampin 300 mg p. o. twice daily for another 5 days, Crestor 40 mg p.o. daily, Imitrex p.r.n. for migraine, sertraline 200 mg p.o. at bedtime, glipizide extended release 10 mg twice daily, metformin 1000 mg twice daily , Januvia 100 mg p.o. daily, Ultram p.r.n. for pain, Lyrica 150 mg twice daily, K-Dur 10 mEq p.o. da gianna, Prilosec 20 mg daily, melatonin 10 mg p.o. at bedtime, lisinopril 10 mg p.o. daily, Combivent i nhaler 2 puffs q.6 hourly p.r.n., Lasix 40 mg daily, Flovent inhaler 50 mcg daily, ferrous sulfate 3 25 mg p.o. twice daily, vitamin D3 2000 units p.o. at bedtime, and Xanax 1 mg p.o. 3 times daily p.r .n. for anxiety. ALLERGIES: CEFUROXIME, CODEINE, DULOXETINE, PENICILLIN, FISH, GLUTEN. INPATIENT CONSULTS: Dr. Vaughan for General Surgery. DISCHARGE PLAN: Patient to follow up with wound care and Dr. Vaughan as advised. BRIEF COURSE DURING HOSPITALIZATION: The patient initially got admitted on the with right foot ulcer with drainage along with pain, erythema, and fever. She was evaluated by Dr. Vaughan. The pa jacek has had amputation of right fifth toe along with metatarsal. Postop, the patient's wound was placed in wound VAC. She was on IV antibiotics. Her white count has normalized prior to discharge. She is tolerating oral solid diet. Case management consultation was requested for outpatient woun d VAC and wound care. This has been accomplished today and she will be shortly discharged home. Trino de la paz needs to continue ciprofloxacin and rifampin as prescribed by Dr. Vaughan. Dr. Vaughan will follow up with her in the Wound Care Facility when she comes around for followups. She is otherwise hemody namically stable and will be shortly discharged home. Please see the face to face documentation on [facility] for the day of discharge.
== END 2017-10-03 15:25 | disposition home or self-care (01) | DRG 617 ==
LOC: ERS 16:52 → T4-A 19:20
PROVIDERS: ADMIT Internal Medicine Infectious Disease; ATTEND Internal Medicine Infectious Disease
PROC: 0Y6X0Z0 Detachment at Right 5th Toe, Complete, Open Approach (ICD-10-PCS; principal; 2017-09-28)
DX: E11.621 Type 2 diabetes mellitus with foot ulcer (principal); L03.115 Cellulitis of right lower limb; E11.22 Type 2 diabetes mellitus with diabetic chronic kidney disease; N17.9 Acute kidney failure, unspecified; Z68.41 Body mass index [BMI] 40.0-44.9, adult; L97.411 Non-pressure chronic ulcer of right heel and midfoot limited to breakdown of skin; N18.3 Chronic kidney disease, stage 3 (moderate); E66.01 Morbid (severe) obesity due to excess calories; E11.42 Type 2 diabetes mellitus with diabetic polyneuropathy; Z88.1 Allergy status to other antibiotic agents; Z88.5 Allergy status to narcotic agent; Z88.0 Allergy status to penicillin; Z79.84 Long term (current) use of oral hypoglycemic drugs; G25.81 Restless legs syndrome; G43.909 Migraine, unspecified, not intractable, without status migrainosus; H40.9 Unspecified glaucoma; J45.909 Unspecified asthma, uncomplicated; K90.0 Celiac disease; M06.9 Rheumatoid arthritis, unspecified; M79.7 Fibromyalgia; G47.33 Obstructive sleep apnea (adult) (pediatric); E78.5 Hyperlipidemia, unspecified; Z85.41 Personal history of malignant neoplasm of cervix uteri; F41.9 Anxiety disorder, unspecified; F32.9 Major depressive disorder, single episode, unspecified; E86.0 Dehydration; I12.9 Hypertensive chronic kidney disease with stage 1 through stage 4 chronic kidney disease, or unspecified chronic kidney disease; K21.9 Gastro-esophageal reflux disease without esophagitis
CPT/HCPCS: 36415; 36416; 80048; 80053; 80202; 81001; 83605; 85025; 85652; 86140; 87040; 88305; 88311; 94660; 96365; 96368; 96375; A4216; G8978-GP-CL; G8979-GP-CJ; J1650; J2001; J2185; J2270; J2704; J2997; J3010; J3370; J3490; J7050

== ENCOUNTER 2017-10-06 13:18 | Outpatient (CLI) | payer OTHER, SELFPAY | END 2017-10-06 13:19 | disposition home or self-care (01) | LOC: WCC 13:18 | PROVIDERS: ATTEND Family Medicine | DX: T81.89XD Other complications of procedures, not elsewhere classified, subsequent encounter (principal) | CPT/HCPCS: 36416; 97605 ==

== ENCOUNTER 2017-10-13 09:15 | Outpatient (CLI) | payer OTHER ==
--- NOTE | 2017-10-13 16:19 | HP ---
DATE OF SERVICE: 10/13/2017 HISTORY OF PRESENT ILLNESS: Ms. Tony Avery is a very pleasant 52-year-old, who presents to the [facility] for evaluation of a wound of the right foot subsequent to amputation of the fifth toe and me tatarsal on 09/28/[address] Robinson Vaughan. Negative pressure therapy was initiated intraoperative ly and upon discharge from [facility], the patient was referred to the Wound C enter for assistance with dressing changes of the wound VAC. Ms. Avery was discharged to home on cip rofloxacin and rifampin. PAST MEDICAL HISTORY: 1. Hypertension. 2. Diabetes mellitus. 3. Glaucoma. 4. Fibromyalgia. 5. Asthma/COPD. 6. Obstructive sleep apnea. 7. History of seizure disorder. 8. Gastroesophageal reflux disease. 9. Migraine headaches. 10. Rheumatoid arthritis/psoriatic arthritis. 11. Lupus. 12. Celiac disease. 13. Osteoarthritis. PAST SURGICAL HISTORY: 1. Tonsillectomy and adenoidectomy. 2. Total abdominal hysterectomy. 3. Bilateral tubal ligation. 4. Cholecystectomy. 5. Cyst removal from right breast. 6. Hemorrhoidectomy. 7. Surgery for deviated nasal septum. 8. Exploratory laparotomy. 9. Amputation of right fifth toe and metatarsal, 09/28/2017. MEDICATIONS: The patient does not have a list of her medications with her today. Her medications, h owever, include metformin, glipizide, Januvia, lisinopril, magnesium, omeprazole, Zoloft, tramadol, P roventil inhaler, QVAR inhaler, Lasix, Imitrex, multivitamin, iron and vitamin D. ALLERGIES: CODEINE, PENICILLIN, CEFTIN, CYMBALTA, AMPICILLIN, and AMOXICILLIN. SOCIAL HISTORY: Significant for tobacco use of up to 1 pack of cigarettes per day for 30 years. The patient states she stopped smoking in 01/2010. Negative for ETOH use. FAMILY HISTORY: Significant for diabetes mellitus. The patient states that a maternal uncle was asiya gnosed with diabetes mellitus. Family history is also significant for coronary artery disease. The patient states that one maternal great aunt was diagnosed with coronary artery disease. PHYSICAL EXAMINATION: VITAL SIGNS: Temperature 97.9, pulse 86, respirations 17, blood pressure 121/60. Accu-Chek 132. GENERAL: A 52-year-old female sitting on chair in examination room, in no acute distress. HEENT: Normocephalic, atraumatic. NECK: No nuchal rigidity. CHEST: Clear to auscultation. CARDIOVASCULAR: Regular rate and rhythm. ABDOMEN: Soft. EXTREMITIES: A wound of the right lateral foot is present, which measures approximately 0.8 x 5.5 cm . Granulation tissue is present within the wound margins. Nonviable tissue present within the wound margins was debrided with an excisional full-thickness debridement. No purulent drainage is associa lambert with the wound. No cellulitis of the right foot is appreciated. No maceration of the skin of th e periwound is noted. A dorsalis pedis pulse is palpable on the right. No significant edema of the right foot is present on exam today. NEUROLOGIC: Grossly nonfocal. ASSESSMENT AND PLAN: 1. Right lateral foot wound subsequent to amputation of the right fifth toe and metatarsal on [address] Robinson Vaughan. Negative pressure therapy was initiated intraoperatively and will be con tinued with dressing changes of the wound VAC 2 times per week here in the Wound Center. The patient will be seen by Dr. Vaughan in 1 week. I will see Ms. Avery again in 2 weeks. 2. Diabetes mellitus. The patient's Accu-Chek in clinic today is 132. The patient has been told th at for optimal wound healing, her blood glucoses should remain below 150. 3. Hypertension. 4. Glaucoma. 5. Fibromyalgia. 6. Asthma/chronic obstructive pulmonary disease. 7. Obstructive sleep apnea. 8. History of seizure disorder. 9. Gastroesophageal reflux disease. 10. Migraine headaches. 11. Rheumatoid arthritis/psoriatic arthritis. 12. Lupus. 13. Celiac disease. 14. Osteoarthritis.
== END 2017-10-13 09:16 | disposition home or self-care (01) ==
LOC: WCC 09:15
PROVIDERS: ATTEND Family Medicine
DX: T81.89XD Other complications of procedures, not elsewhere classified, subsequent encounter (principal); E11.9 Type 2 diabetes mellitus without complications; H40.9 Unspecified glaucoma; M79.7 Fibromyalgia; J44.9 Chronic obstructive pulmonary disease, unspecified; K21.9 Gastro-esophageal reflux disease without esophagitis; G43.909 Migraine, unspecified, not intractable, without status migrainosus; A18.4 Tuberculosis of skin and subcutaneous tissue; K90.0 Celiac disease; M19.90 Unspecified osteoarthritis, unspecified site; M06.9 Rheumatoid arthritis, unspecified; G47.33 Obstructive sleep apnea (adult) (pediatric); I10 Essential (primary) hypertension
CPT/HCPCS: 11042; 36416; 99203; A4218; G0463

== ENCOUNTER → 2017-10-13 | Outpatient (CLI) | payer OTHER, SELFPAY ==
[~2017-10-13] MED LIST: Sodium Chloride 0.9% 15 ML NEB ONE
== END ==
LOC: WCC 11:49
PROVIDERS: ATTEND Family Medicine
DX: T81.89XD Other complications of procedures, not elsewhere classified, subsequent encounter (principal); S91.301D Unspecified open wound, right foot, subsequent encounter
CPT/HCPCS: 36416; 97605; A4218

== ENCOUNTER 2017-10-17 11:29 | Outpatient (CLI) | payer OTHER, SELFPAY ==
[2017-10-17] MEDS ORDERED: Sodium Chloride 0.9% 15 ML NEB ONE (14:52)
== END 2017-10-17 11:30 | disposition home or self-care (01) ==
LOC: WCC 11:29
PROVIDERS: ATTEND Family Medicine
DX: T81.89XD Other complications of procedures, not elsewhere classified, subsequent encounter (principal); S91.301D Unspecified open wound, right foot, subsequent encounter
CPT/HCPCS: 97605; A4218

== ENCOUNTER 2017-10-19 11:40 | Outpatient (CLI) | payer OTHER ==
--- NOTE | 2017-10-19 13:25 | PRG ---
DATE OF SERVICE: 10/19/2017 WOUND CARE EVALUATION Ms. Avery presents to the outpatient [facility]ound Care for wound VAC care, wound care. I have been aske d to see her regarding her wound. She has a wound VAC. She has a postoperative shoe. She is morbid ly obese, metabolic syndrome, diabetes. Her right foot wound from amputation right fifth toe and met atarsal is granulating. There are no signs of infection. She has loose skin on the plantar aspect o f the foot that I have asked Wound Care to debride. She has a small callus on the tip of her great toe. They are cleansing that daily. I would recommend continuation of wound VAC care and I will see the wound in Wound Care outpatient in approximately 2 weeks. They will call sooner if there are any problems.
== END 2017-10-19 11:41 | disposition home or self-care (01) ==
LOC: WCC 11:40
PROVIDERS: ATTEND Family Medicine
DX: T81.89XD Other complications of procedures, not elsewhere classified, subsequent encounter (principal); E11.621 Type 2 diabetes mellitus with foot ulcer; L97.519 Non-pressure chronic ulcer of other part of right foot with unspecified severity; E66.01 Morbid (severe) obesity due to excess calories; E88.81 Metabolic syndrome and other insulin resistance; Z89.421 Acquired absence of other right toe(s)
CPT/HCPCS: 36416; 97605

== ENCOUNTER 2017-10-21 12:09 | Emergency (ER) | payer OTHER, SELFPAY | END 2017-10-21 14:33 | disposition home or self-care (01) | LOC: ERS 12:09 | DX: Z48.01 Encounter for change or removal of surgical wound dressing (principal); J45.909 Unspecified asthma, uncomplicated; E11.9 Type 2 diabetes mellitus without complications; E78.5 Hyperlipidemia, unspecified; I10 Essential (primary) hypertension; M06.9 Rheumatoid arthritis, unspecified; K21.9 Gastro-esophageal reflux disease without esophagitis; G62.9 Polyneuropathy, unspecified; M32.9 Systemic lupus erythematosus, unspecified; F32.9 Major depressive disorder, single episode, unspecified; F41.9 Anxiety disorder, unspecified; Z87.891 Personal history of nicotine dependence | CPT/HCPCS: 99282 ==

== ENCOUNTER 2017-10-23 22:03 | Emergency (ER) | payer OTHER, SELFPAY ==
[2017-10-23] MEDS ORDERED: Dextrose 50% Abboject 50 ML SYRINGE ONE (22:20)
--- NOTE | 2017-10-23 22:49 | RAD ---
CHEST ONE VIEW 10/23/17 HISTORY: Altered mental status. Hypoglycemia. COMPARISON: 05/13/17 FINDINGS: The cardiac silhouette is magnified by projection. Pulmonary vasculature is unremarkable. Mediastinum is midline. There is no lobar consolidation, or evidence of pneumothorax. fireman leads over lie the chest. IMPRESSION: No active cardiopulmonary abnormalities are demonstrated. POS: [facility]
[2017-10-23 23:24] LABS: #Eosinphils 0.4 thou/uL (0.0-0.7); #Lymphocytes 2.2 thou/uL (1.20-3.40); #Monocytes 0.5 thou/uL (0.11-0.59); #Neutrophils 5.4 thou/uL (1.40-6.50); %Basophils 0.4 % (0.0-1.0); %Eosinophils 4.8 % (0.0-10.0); %Lymphocytes 25.7 % (21.0-51.0); %Monocytes 5.8 % (0.0-10.0); Hematocrit 34.8 % (36.0-47.0); White Blood Cell (WBC) Count 8.6 thou/uL (4.8-10.8)
[2017-10-23 23:39] LABS: ALT (SGPT) 17 U/L (8-55); AST (SGOT) 20 U/L (5-34); Alkaline Phosphatase 57 U/L (40-150); Anion Gap 15 mmol/L (10-20); BUN (Urea Nitrogen) 23 mg/dL (9.8-20.1); Bilirubin, Total 0.2 mg/dL (0.2-1.2); CK (CPK) 110 U/L (29-168); Calc. Creatinine Clearance 0 mL/min (70-130); Calcium 9.3 mg/dL (7.8-10.44); Carbon Dioxide 26 mmol/L (22-29); Chloride 101 mmol/L (98-107); Estimated GFR-MDRD 39; Globulin 3.3 g/dL (2.4-3.5); Lipase 17 U/L (8-78); Magnesium 1.1 mg/dL (1.6-2.6); Protein, Total 6.9 g/dL (6.0-8.3)
[2017-10-23 23:42] LABS: Lactic Acid - Sepsis 1.9 mmol/L (0.5-2.2)
[2017-10-23 23:44] LABS: Troponin I 0.011 ng/mL (< 0.028)
[2017-10-23] MEDS ORDERED: diphenhydrAMINE 50 MG/ML VIAL ONE (23:46)
[2017-10-23] MEDS ORDERED: Metoclopramide HCl 10 MG/2 ML VIAL ONE (23:46)
[2017-10-24] MEDS ORDERED: Magnesium Sulfate 2 GM/100 ML BAG ONE (00:35)
[2017-10-24 01:41] LABS: Bilirubin Negative (Negative); Blood, Urine Negative (Negative); Glucose, Urine (Dipstick) Negative (Negative); Ketone, Urine Negative (Negative); Nitrite Negative (Negative); Protein, Urine (Dipstick) Negative (Neg-Trace); Urobilinogen 0.2 mg/dL (0.2-1.0)
== END 2017-10-24 02:28 | disposition home or self-care (01) ==
LOC: ERS 22:03
DX: E86.0 Dehydration (principal); J45.909 Unspecified asthma, uncomplicated; E78.5 Hyperlipidemia, unspecified; I10 Essential (primary) hypertension; M06.9 Rheumatoid arthritis, unspecified; L40.50 Arthropathic psoriasis, unspecified; M32.9 Systemic lupus erythematosus, unspecified; K21.9 Gastro-esophageal reflux disease without esophagitis; E11.40 Type 2 diabetes mellitus with diabetic neuropathy, unspecified; G43.909 Migraine, unspecified, not intractable, without status migrainosus; E78.00 Pure hypercholesterolemia, unspecified; F41.9 Anxiety disorder, unspecified; F32.9 Major depressive disorder, single episode, unspecified; Z85.41 Personal history of malignant neoplasm of cervix uteri; Z87.891 Personal history of nicotine dependence
CPT/HCPCS: 36416; 71010; 80053; 81003; 82550; 82553; 83605; 83690; 83735; 84443; 84484; 85025; 96361; 96365; 96372; 96375; J1200; J1610; J2765; J3475

== ENCOUNTER 2017-10-24 10:13 | Outpatient (CLI) | payer OTHER ==
--- NOTE | 2017-10-24 11:42 | PRG ---
DATE OF SERVICE: 10/24/2017 HISTORY: Ms. Tony Avery is a very pleasant 52-year-old who presents to the Wound Center for evaluat ion of a wound of the right foot subsequent to amputation of the fifth toe and metatarsal on 09/28/[address] Robinson Vaughan. Negative pressure therapy was initiated intraoperatively and upon discharg e from [facility], the patient was referred to the Wound Center for assistance with dressing changes of the wound VAC. The patient was discharged to home on ciprofloxacin and rif ampin. PHYSICAL EXAMINATION: VITAL SIGNS: Temperature 99.0, pulse 92, respirations 16, blood pressure 115/70. Accu-Chek 283. EXTREMITIES: A wound of the right lateral foot is present, which measures approximately 2.0 x 5.3 cm . Granulation tissue is present within the wound margins. Necrotic and nonviable tissue present wit hin the wound margins was debrided with an excisional full-thickness debridement with the use of a cu rette and scissors. Nonviable tissue and desiccated tissue at the periphery of the wound were excise d with the use of scissors. No purulent drainage is associated with the wound. No cellulitis of the right foot is appreciated. Maceration of the skin of the periwound is noted. A dorsalis pedis puls e is easily palpable on the right. No significant edema of the right foot is present on exam today. ASSESSMENT AND PLAN: 1. Right lateral foot wound subsequent to amputation of the right fifth toe and metatarsal on [address] Robinson Vaughan. Negative pressure therapy was initiated intraoperatively and will be con tinued with dressing changes of the wound VAC 2 times per week here in the Wound Center. The patient will be seen by Dr. Vaughan in 1 week. I will see Ms. Avery again in 2 weeks. Maceration of the ski n of the periwound was noted on exam today and the patient has been asked to continue to stay off her feet as much as possible. 2. Diabetes mellitus. The patient's Accu-Chek in clinic today is 283. The patient has been reminde d that for optimal wound healing, her blood glucoses should remain below 150. 3. Hypertension. 4. Glaucoma. 5. Fibromyalgia. 6. Asthma/chronic obstructive pulmonary disease. 7. Obstructive sleep apnea. 8. History of seizure disorder. 9. Gastroesophageal reflux disease. 10. Migraine headaches. 11. Rheumatoid arthritis/psoriatic arthritis. 12. Lupus. 13. Celiac disease. 14. Osteoarthritis.
[2017-10-24] MEDS ORDERED: Sodium Chloride 0.9% 15 ML NEB ONE ×2 (17:42→17:45)
[2017-10-24] MEDS ORDERED: Lidocaine 2% Jelly 5 ML TUBE ONE (17:45)
== END 2017-10-24 10:14 | disposition home or self-care (01) ==
LOC: WCC 10:13
PROVIDERS: ATTEND Family Medicine
DX: T81.89XD Other complications of procedures, not elsewhere classified, subsequent encounter (principal); E11.9 Type 2 diabetes mellitus without complications; I10 Essential (primary) hypertension; G47.33 Obstructive sleep apnea (adult) (pediatric); J44.9 Chronic obstructive pulmonary disease, unspecified; K21.9 Gastro-esophageal reflux disease without esophagitis; G43.909 Migraine, unspecified, not intractable, without status migrainosus; M06.9 Rheumatoid arthritis, unspecified; L40.50 Arthropathic psoriasis, unspecified; H40.9 Unspecified glaucoma; M79.7 Fibromyalgia; M32.9 Systemic lupus erythematosus, unspecified; M19.90 Unspecified osteoarthritis, unspecified site; K90.0 Celiac disease
CPT/HCPCS: 11042; 36416; A4218

== ENCOUNTER 2017-11-03 10:11 | Outpatient (CLI) | payer OTHER ==
--- NOTE | 2017-11-03 11:34 | PRG ---
DATE OF SERVICE: 11/03/2017 HISTORY: Ms. Tony Avery is a very pleasant 52-year-old who presents to the Wound Center for evaluat ion of a wound of the right foot subsequent to amputation of the fifth toe and metatarsal on 09/28/[address] Robinson Vaughan. Negative pressure therapy was initiated intraoperatively and upon discharg e from [facility], the patient was referred to the Wound Center for assistance with dressing changes of the wound VAC. The patient was discharged to home on ciprofloxacin and rif ampin. PHYSICAL EXAMINATION: VITAL SIGNS: Temperature 98.1, pulse 112, respirations 17, blood pressure 120/95. Accu-Chek 222. EXTREMITIES: A wound of the right lateral foot is present which measures approximately 5.5 x 2.5 cm. Granulation tissue is present within the wound margins. Necrotic and nonviable tissue present with in the wound margins was debrided with an excisional full-thickness debridement with the use of a cur et. No purulent drainage is associated with the wound. No cellulitis of the right foot is appreciat ed. No maceration of the skin of the periwound is noted. A dorsalis pedis pulse is easily palpable on the right. No significant edema of the right foot is present on exam today. ASSESSMENT AND PLAN: 1. Right lateral foot wound subsequent to amputation of the right fifth toe and metatarsal on [address] Robinson Vaughan. Negative pressure therapy was initiated intraoperatively and will be con tinued with dressing changes of the wound VAC 2 times per week here in the Wound Center. The patient will be seen by Dr. Vaughan in 1 week. I will see Ms. Avery again in two weeks. 2. Diabetes mellitus. The patient's Accu-Chek in clinic today is 222. The patient has been reminde d that for optimal wound healing, her blood glucoses should remain below 150. 3. Hypertension. 4. Glaucoma. 5. Fibromyalgia. 6. Asthma/chronic obstructive pulmonary disease. 7. Obstructive sleep apnea. 8. History of seizure disorder. 9. Gastroesophageal reflux disease. 10. Migraine headaches. 11. Rheumatoid arthritis/psoriatic arthritis. 12. Lupus. 13. Celiac disease. 14. Osteoarthritis.
== END 2017-11-03 10:12 | disposition home or self-care (01) ==
LOC: WCC 10:11
PROVIDERS: ATTEND Family Medicine
DX: T81.89XD Other complications of procedures, not elsewhere classified, subsequent encounter (principal); E11.621 Type 2 diabetes mellitus with foot ulcer; L97.519 Non-pressure chronic ulcer of other part of right foot with unspecified severity; I10 Essential (primary) hypertension; H40.9 Unspecified glaucoma; M79.7 Fibromyalgia; J45.909 Unspecified asthma, uncomplicated; G47.33 Obstructive sleep apnea (adult) (pediatric); K21.9 Gastro-esophageal reflux disease without esophagitis; G43.909 Migraine, unspecified, not intractable, without status migrainosus; M06.9 Rheumatoid arthritis, unspecified; L40.50 Arthropathic psoriasis, unspecified; K90.0 Celiac disease; M19.90 Unspecified osteoarthritis, unspecified site
CPT/HCPCS: 11042

== ENCOUNTER 2017-11-06 20:11 | Emergency (ER) | payer SELFPAY ==
[2017-11-06 21:39] LABS: #Eosinphils 0.4 thou/uL (0.0-0.7); #Lymphocytes 2.4 thou/uL (1.20-3.40); #Monocytes 0.7 thou/uL (0.11-0.59); #Neutrophils 6.5 thou/uL (1.40-6.50); %Basophils 0.3 % (0.0-1.0); %Lymphocytes 24.1 % (21.0-51.0); %Monocytes 6.6 % (0.0-10.0); Hematocrit 33.4 % (36.0-47.0); Mean Platelet Volume 7.9 fL (7.4-10.4); Red Blood Cell (RBC) Count 3.82 mill/uL (4.20-5.40)
[2017-11-06 22:02] LABS: ALT (SGPT) 19 U/L (8-55); AST (SGOT) 20 U/L (5-34); Acetaminophen Less than 6.0 mcg/mL (10.0-30.0); Alkaline Phosphatase 67 U/L (40-150); Anion Gap 15 mmol/L (10-20); BUN (Urea Nitrogen) 17 mg/dL (9.8-20.1); Bilirubin, Total 0.2 mg/dL (0.2-1.2); Calc. Creatinine Clearance 0 mL/min (70-130); Calcium 9.1 mg/dL (7.8-10.44); Carbon Dioxide 23 mmol/L (22-29); Chloride 105 mmol/L (98-107); Estimated GFR-MDRD 53; Globulin 3.5 g/dL (2.4-3.5); Protein, Total 7.1 g/dL (6.0-8.3); Salicylate Less than 8.0 mg/dL (15.0-30.0)
[2017-11-06 22:13] LABS: Bilirubin Negative (Negative); Blood, Urine Negative (Negative); Glucose, Urine (Dipstick) Negative (Negative); Ketone, Urine Negative (Negative); Nitrite Negative (Negative); Protein, Urine (Dipstick) Negative (Neg-Trace); Urobilinogen 0.2 mg/dL (0.2-1.0)
[2017-11-06 22:24] LABS: Amphetamine Not Detected (NotDetected); Methadone Not Detected (NotDetected); Methamphetamine Not Detected (NotDetected)
[2017-11-07] MEDS ORDERED: traMADol HCl 50 MG TAB ONE (23:14)
[2017-11-08] MEDS ORDERED: Melatonin 3 MG TAB PO SCH ×2 (02:30→21:00)
[2017-11-08] MEDS ORDERED: traMADol HCl 50 MG TAB PO PRN (04:52)
[2017-11-08] MEDS ORDERED: SUMAtriptan Succinate 50 MG TAB PO PRN (04:59)
[2017-11-08] MEDS ORDERED: PROVENTIL INHALER 6.7 G (200 INHALATIONS) INH PRN (05:02)
[2017-11-08] MEDS ORDERED: Mometasone 100 MCG HFA INHALER INH SCH (06:30)
[2017-11-08] MEDS ORDERED: glipiZIDE 10 MG TAB PO SCH ×2 (07:30→17:00)
[2017-11-08] MEDS ORDERED: metFORMIN 500 MG TAB PO SCH (08:00)
[2017-11-08] MEDS ORDERED: Ferrous Sulfate 325 MG TAB PO SCH (08:00)
[2017-11-08] MEDS ORDERED: Furosemide 40 MG TAB PO SCH (09:00)
[2017-11-08] MEDS ORDERED: Pregabalin 75 MG CAP PO SCH (09:00)
[2017-11-08] MEDS ORDERED: Famotidine 20 MG TAB PO SCH (09:00)
[2017-11-08] MEDS ORDERED: Fluticasone Propionate Nasal Spray 16 gm Bottle NASAL SCH (09:00)
[2017-11-08] MEDS ORDERED: Alogliptin Benzoate 25 MG TABLET PO SCH (09:00)
[2017-11-08] MEDS ORDERED: Lisinopril 5 MG TAB PO SCH (09:00)
== END 2017-11-08 13:50 | disposition home or self-care (01) ==
LOC: ERS 20:11
DX: T42.4X2A Poisoning by benzodiazepines, intentional self-harm, initial encounter (principal); T38.892A Poisoning by other hormones and synthetic substitutes, intentional self-harm, initial encounter; G47.30 Sleep apnea, unspecified; K90.0 Celiac disease; J45.909 Unspecified asthma, uncomplicated; E11.9 Type 2 diabetes mellitus without complications; E78.5 Hyperlipidemia, unspecified; I10 Essential (primary) hypertension; M06.9 Rheumatoid arthritis, unspecified; L40.50 Arthropathic psoriasis, unspecified; M32.9 Systemic lupus erythematosus, unspecified; K21.9 Gastro-esophageal reflux disease without esophagitis; G62.9 Polyneuropathy, unspecified; G43.909 Migraine, unspecified, not intractable, without status migrainosus; F41.9 Anxiety disorder, unspecified; F32.9 Major depressive disorder, single episode, unspecified; Z85.41 Personal history of malignant neoplasm of cervix uteri; Z87.891 Personal history of nicotine dependence; Z79.84 Long term (current) use of oral hypoglycemic drugs; Z79.899 Other long term (current) drug therapy
CPT/HCPCS: 36415; 36416; 80053; 80306; 80307; 81003; 81025; 82550; 84443; 85025; 93005; J3370

== ENCOUNTER 2017-11-10 10:23 | Outpatient (CLI) | payer OTHER ==
[2017-11-10] MEDS ORDERED: Sodium Chloride 0.9% 15 ML NEB ONE (21:14)
== END 2017-11-10 10:24 | disposition home or self-care (01) ==
LOC: WCC 10:23
PROVIDERS: ATTEND Family Medicine
DX: T81.89XD Other complications of procedures, not elsewhere classified, subsequent encounter (principal)
CPT/HCPCS: 97605; A4218

== ENCOUNTER 2017-11-14 11:42 | Outpatient (CLI) | payer OTHER ==
[2017-11-14] MEDS ORDERED: Sodium Chloride 0.9% 15 ML NEB ONE (17:04)
== END 2017-11-14 11:43 | disposition home or self-care (01) ==
LOC: WCC 11:42
PROVIDERS: ATTEND Family Medicine
DX: T81.89XD Other complications of procedures, not elsewhere classified, subsequent encounter (principal)
CPT/HCPCS: 97605; A4218

== ENCOUNTER 2017-11-17 10:56 | Outpatient (CLI) | payer OTHER ==
--- NOTE | 2017-11-17 12:48 | PRG ---
DATE OF SERVICE: 11/17/2017 HISTORY: Ms. Tony Avery is a very pleasant 52-year-old who presents to the Wound Center for evaluat ion of a wound of the right foot subsequent to amputation of the fifth toe and metatarsal on 09/28/[address] Robinson Vaughan. Negative pressure therapy was initiated intraoperatively and upon discharg e from [facility], the patient was referred to the Wound Center for assistance with dressing changes of the wound VAC. The patient was discharged to home on ciprofloxacin and rif ampin. PHYSICAL EXAMINATION: VITAL SIGNS: Stable. Afebrile. EXTREMITIES: A wound of the right lateral foot is present which measures approximately 5.5 x 2.3 cm. The dimensions of the wound at the time of the patient's visit on 11/03/2017 were approximately 5.5 x 2.5 cm. Granulation tissue is present within the wound margins. Necrotic and nonviable tissue pr esent within the wound margins was debrided with an excisional full-thickness debridement with the us e of a curet. No purulent drainage is associated with the wound. No cellulitis of the right foot is appreciated. No maceration of the skin of the periwound is noted. A dorsalis pedis pulse is easily palpable on the right. No significant edema of the right foot is present on exam today. ASSESSMENT AND PLAN: 1. Right lateral foot wound subsequent to amputation of the right fifth toe and metatarsal on [address] Robinson Vaughan. Negative pressure therapy was initiated intraoperatively and will be con tinued with dressing changes of the wound VAC 2 times per week here in the Wound Center. The patient will be seen by Dr. Vaughan in 1-2 weeks. I will see Ms. Avery again in 3 weeks. 2. Diabetes mellitus. Accu-Cheks will be obtained at the time of the patient's clinic visits. The patient has been reminded that for optimal wound healing, her blood glucoses should remain below 150. 3. Hypertension. 4. Glaucoma. 5. Fibromyalgia. 6. Asthma/chronic obstructive pulmonary disease. 7. Obstructive sleep apnea. 8. History of seizure disorder. 9. Gastroesophageal reflux disease. 10. Migraine headaches. 11. Rheumatoid arthritis/psoriatic arthritis. 12. Lupus. 13. Celiac disease. 14. Osteoarthritis.
[2017-11-17] MEDS ORDERED: Lidocaine 2% Jelly 5 ML TUBE ONE (21:24)
[2017-11-17] MEDS ORDERED: Sodium Chloride 0.9% 15 ML NEB ONE (21:24)
== END 2017-11-17 10:57 | disposition home or self-care (01) ==
LOC: WCC 10:56
PROVIDERS: ATTEND Family Medicine
DX: T81.89XD Other complications of procedures, not elsewhere classified, subsequent encounter (principal); E11.9 Type 2 diabetes mellitus without complications; I10 Essential (primary) hypertension; H40.9 Unspecified glaucoma; M79.7 Fibromyalgia; J44.9 Chronic obstructive pulmonary disease, unspecified; G47.33 Obstructive sleep apnea (adult) (pediatric); G40.909 Epilepsy, unspecified, not intractable, without status epilepticus; K21.9 Gastro-esophageal reflux disease without esophagitis; G43.909 Migraine, unspecified, not intractable, without status migrainosus; M32.9 Systemic lupus erythematosus, unspecified; K90.0 Celiac disease; M19.90 Unspecified osteoarthritis, unspecified site; Z89.421 Acquired absence of other right toe(s)
CPT/HCPCS: 36416; A4218

== ENCOUNTER 2017-11-24 10:38 | Outpatient (CLI) | payer OTHER ==
[2017-11-24] MEDS ORDERED: Sodium Chloride 0.9% 15 ML NEB ONE (13:37)
== END 2017-11-24 10:39 | disposition home or self-care (01) ==
LOC: WCC 10:38
PROVIDERS: ATTEND Family Medicine
DX: T81.89XD Other complications of procedures, not elsewhere classified, subsequent encounter (principal)
CPT/HCPCS: 36416; 97605; A4218

== ENCOUNTER 2017-11-25 14:33 | Emergency (ER) | payer MEDICAID, OTHER, SELFPAY ==
[2017-11-25 18:32] LABS: #Eosinphils 0.3 thou/uL (0.0-0.7); #Lymphocytes 2.1 thou/uL (1.20-3.40); #Monocytes 0.5 thou/uL (0.11-0.59); #Neutrophils 5.8 thou/uL (1.40-6.50); %Basophils 0.3 % (0.0-1.0); %Eosinophils 3.5 % (0.0-10.0); %Lymphocytes 24.5 % (21.0-51.0); %Monocytes 5.9 % (0.0-10.0); %Neutrophils 65.8 % (42.0-75.0); Hemoglobin 12.3 g/dL (12.0-16.0); Mean Corpuscular HGB CONC 33.4 g/dL (32.0-36.0); Mean Corpuscular Hemoglobin 28.5 pg (27.0-31.0); Mean Corpuscular Volume 85.4 fl (81.0-99.0); Mean Platelet Volume 7.8 fL (7.4-10.4); Platelet Count 219 thou/uL (130-400); RBC Distribution Width 12.4 % (11.5-14.5); Red Blood Cell (RBC) Count 4.29 mill/uL (4.20-5.40); White Blood Cell (WBC) Count 8.7 thou/uL (4.8-10.8)
[2017-11-25 18:38] LABS: Acetaminophen Less than 6.0 mcg/mL (10.0-30.0); Alcohol Less than 10 mg/dL (Less than 10); Anion Gap 15 mmol/L (10-20); BUN (Urea Nitrogen) 15 mg/dL (9.8-20.1); Calc. Creatinine Clearance 0 mL/min (70-130); Calcium 9.8 mg/dL (7.8-10.44); Carbon Dioxide 22 mmol/L (22-29); Chloride 107 mmol/L (98-107); Estimated GFR-MDRD 46; Glucose 112 mg/dL (70-105); Potassium 4.2 mmol/L (3.5-5.1); Salicylate Less than 8.0 mg/dL (15.0-30.0); Sodium 140 mmol/L (136-145)
[2017-11-25 19:01] LABS: Medtox Reader # READER 1
[2017-11-25 19:02] LABS: Amphetamine Not Detected (NotDetected); Barbiturates Screen Not Detected (NotDetected); Benzodiazepine Screen Detected (NotDetected); Cocaine Metabolite Screen Not Detected (NotDetected); Medtox Control Line Valid? VALID (VALID); Methadone Not Detected (NotDetected); Methamphetamine Not Detected (NotDetected); Opiate Screen Not Detected (NotDetected); Oxycodone Screen Not Detected (NotDetected); Phencyclidine (PCP) Not Detected (NotDetected); THC/Cannabinoid Screen Not Detected (NotDetected); Tricyclic Screen Not Detected (NotDetected)
== END 2017-11-25 23:25 | disposition home or self-care (01) ==
LOC: ERS 14:33
DX: F32.9 Major depressive disorder, single episode, unspecified (principal); E11.9 Type 2 diabetes mellitus without complications; S81.801D Unspecified open wound, right lower leg, subsequent encounter; G47.30 Sleep apnea, unspecified; M06.9 Rheumatoid arthritis, unspecified; L40.50 Arthropathic psoriasis, unspecified; M32.9 Systemic lupus erythematosus, unspecified; K21.9 Gastro-esophageal reflux disease without esophagitis; G62.9 Polyneuropathy, unspecified; G43.909 Migraine, unspecified, not intractable, without status migrainosus; F41.9 Anxiety disorder, unspecified; Z85.41 Personal history of malignant neoplasm of cervix uteri; Z79.84 Long term (current) use of oral hypoglycemic drugs; Z79.899 Other long term (current) drug therapy; X58.XXXD Exposure to other specified factors, subsequent encounter
CPT/HCPCS: 36415; 80048; 80306; 80307; 85025; 93005

== ENCOUNTER 2017-11-29 09:16 | Outpatient (CLI) | payer OTHER ==
[2017-12-23] MEDS ORDERED: Sodium Chloride 0.9% 15 ML NEB ONE (16:04)
== END 2017-11-29 09:17 | disposition home or self-care (01) ==
LOC: WCC 09:16
PROVIDERS: ATTEND Family Medicine
DX: T81.89XD Other complications of procedures, not elsewhere classified, subsequent encounter (principal)

== ENCOUNTER 2017-12-01 10:48 | Outpatient (CLI) | payer OTHER ==
[2017-12-01] MEDS ORDERED: Sodium Chloride 0.9% 15 ML NEB ONE (11:00)
== END 2017-12-01 10:49 | disposition home or self-care (01) ==
LOC: WCC 10:48
PROVIDERS: ATTEND Family Medicine
DX: T81.89XD Other complications of procedures, not elsewhere classified, subsequent encounter (principal)
CPT/HCPCS: 97605; A4218

== ENCOUNTER 2017-12-05 11:37 | Outpatient (CLI) | payer OTHER ==
[~2017-12-05 11:37] MED LIST changes: +Lidocaine 2% Jelly 5 ML TUBE ONE
--- NOTE | 2017-12-05 12:48 | PRG ---
DATE OF SERVICE: 12/05/2017 HISTORY: Ms. Tony Avery is a very pleasant 52-year-old who presents to the Wound Center for evaluation of a wound of the right foot subsequent to amputation of the fifth toe and metatarsal on 09/28/[address] Robinson Vaughan. Negative pressure therapy was initiated intraoperatively, and upon discharge from [facility], the patient was referred to the Wound Center for assistance with dressing changes of the wound VAC. The patient was discharged to home on ciprofloxacin and rifampin. PHYSICAL EXAMINATION: VITAL SIGNS: Temperature 99.0, pulse 98, respirations 18, blood pressure 125/ 77. Accu-Chek 286. EXTREMITIES: A wound of the right lateral foot is present which measures approximately 3.0 x 1.7 cm. The dimensions of the wound at the time of the patient's visit on 11/17/2017 were approximately 5.5 x 2.3 cm. Granulation tissue is present within the wound margins. Necrotic and nonviable tissue present within the wound margins was debrided with an excisional full-thickness debridement with the use of a curette. No purulent drainage is associated with the wound. No cellulitis of the right foot is appreciated. No maceration of the skin of the periwound is noted. A posterior tibial pulse is easily palpable on the right. No significant edema of the right foot is present on exam today. ASSESSMENT AND PLAN: 1. Right lateral foot wound subsequent to amputation of the right fifth toe and metatarsal on 09/28/[address] Robinson Vaughan. Negative pressure therapy will be discontinued today. Silverlon, Webril, and the 3M Coban two-layer compression system will be applied to the right lateral foot wound. I will see Ms. Avery again in one week. The patient will be seen by Dr. Vaughan in 2 weeks. 2. Diabetes mellitus. The patient's Accu-Chek in clinic today is 286. The patient has been told that for optimal wound healing, her blood glucoses should remain below 150. 3. Hypertension. 4. Glaucoma. 5. Fibromyalgia. 6. Asthma/chronic obstructive pulmonary disease. 7. Obstructive sleep apnea. 8. History of seizure disorder. 9. Gastroesophageal reflux disease. 10. Migraine headaches. 11. Rheumatoid arthritis/psoriatic arthritis. 12. Lupus. 13. Celiac disease. 14. Osteoarthritis. MTDD
== END 2017-12-05 11:38 | disposition home or self-care (01) ==
LOC: WCC 11:37
PROVIDERS: ATTEND Family Medicine
DX: T81.89XD Other complications of procedures, not elsewhere classified, subsequent encounter (principal); S91.301D Unspecified open wound, right foot, subsequent encounter; E11.9 Type 2 diabetes mellitus without complications; I10 Essential (primary) hypertension; H40.9 Unspecified glaucoma; M79.7 Fibromyalgia; J45.909 Unspecified asthma, uncomplicated; G47.33 Obstructive sleep apnea (adult) (pediatric); K21.9 Gastro-esophageal reflux disease without esophagitis; G43.909 Migraine, unspecified, not intractable, without status migrainosus; K90.0 Celiac disease; M06.9 Rheumatoid arthritis, unspecified; L40.50 Arthropathic psoriasis, unspecified; M19.90 Unspecified osteoarthritis, unspecified site
CPT/HCPCS: 11042; 36416; A4218

== ENCOUNTER 2017-12-12 10:48 | Outpatient (CLI) | payer OTHER ==
--- NOTE | 2017-12-12 12:46 | PRG ---
DATE OF SERVICE: 12/12/2017 HISTORY: Ms. Tony Avery is a very pleasant 52-year-old who presents to the Wound Center for evaluation of a wound of the right foot subsequent to amputation of the fifth toe and metatarsal on 09/28/[address] Robinson Vaughan. Negative pressure therapy was initiated intraoperatively, and upon discharge from [facility], the patient was referred to the Wound Center for assistance with dressing changes of the wound VAC. The patient was discharged to home on ciprofloxacin and rifampin. PHYSICAL EXAMINATION: VITAL SIGNS: Temperature 98.5, pulse 85, respirations 19, blood pressure 147/ 72. Accu-Chek 182. EXTREMITIES: A wound of the right lateral foot is present, which measures approximately 2.7 x 1.5 cm. The dimensions of the wound at the time of the patient's visit on 12/05/2017 were approximately 3.0 x 1.7 cm. Granulation tissue is present within the wound margins. Necrotic and nonviable tissue present within the wound margins was debrided with an excisional full-thickness debridement with the use of a curette. No purulent drainage is associated with the wound. No cellulitis of the right foot is appreciated. No maceration of the skin of the periwound is noted. A dorsalis pedis pulse is easily palpable on the right. No significant edema of the right foot is present on exam today. ASSESSMENT AND PLAN: 1. Right lateral foot wound subsequent to amputation of the right fifth toe and metatarsal on 09/28/[address] Robinson Vaughan. Silverlon, Webril, and the 3M Coban 2-layer compression system will be applied again to the right lateral foot wound. The patient has completed a course of negative pressure therapy. The patient will be seen by Dr. Vaughan in 1 week. I will see Ms. Avery again in 2 weeks. 2. Diabetes mellitus. The patient's Accu-Chek in clinic today is 182. The patient has been reminded that for optimal wound healing, her blood glucoses should remain below 150. 3. Hypertension. 4. Glaucoma. 5. Fibromyalgia. 6. Asthma/chronic obstructive pulmonary disease. 7. Obstructive sleep apnea. 8. History of seizure disorder. 9. Gastroesophageal reflux disease. 10. Migraine headaches. 11. Rheumatoid arthritis/psoriatic arthritis. 12. Lupus. 13. Celiac disease. 14. Osteoarthritis. MTDD
[2017-12-12] MEDS ORDERED: Sodium Chloride 0.9% 15 ML NEB ONE (13:32)
[2017-12-12] MEDS ORDERED: Lidocaine 2% Jelly 5 ML TUBE ONE (13:32)
== END 2017-12-12 10:49 | disposition home or self-care (01) ==
LOC: WCC 10:48
PROVIDERS: ATTEND Family Medicine
DX: T87.89 Other complications of amputation stump (principal); E11.69 Type 2 diabetes mellitus with other specified complication; I10 Essential (primary) hypertension; H40.9 Unspecified glaucoma; M79.7 Fibromyalgia; J44.9 Chronic obstructive pulmonary disease, unspecified; G47.33 Obstructive sleep apnea (adult) (pediatric); G40.909 Epilepsy, unspecified, not intractable, without status epilepticus; K21.9 Gastro-esophageal reflux disease without esophagitis; G43.909 Migraine, unspecified, not intractable, without status migrainosus; L93.0 Discoid lupus erythematosus; K90.0 Celiac disease; M19.90 Unspecified osteoarthritis, unspecified site; Z89.421 Acquired absence of other right toe(s)
CPT/HCPCS: 11042; 36416; A4218

== ENCOUNTER 2017-12-17 16:22 | Emergency (ER) | payer OTHER, SELFPAY ==
[2017-12-17 19:21] LABS: #Basophils 0.1 thou/uL (0.0-0.2); #Eosinphils 0.4 thou/uL (0.0-0.7); #Lymphocytes 2.7 thou/uL (1.20-3.40); #Monocytes 0.6 thou/uL (0.11-0.59); #Neutrophils 6.3 thou/uL (1.40-6.50); %Basophils 0.7 % (0.0-1.0); %Lymphocytes 26.6 % (21.0-51.0); %Monocytes 6.4 % (0.0-10.0); %Neutrophils 62.4 % (42.0-75.0); Hemoglobin 12.9 g/dL (12.0-16.0); Mean Corpuscular HGB CONC 33.9 g/dL (32.0-36.0); Mean Corpuscular Hemoglobin 28.1 pg (27.0-31.0); Mean Corpuscular Volume 82.8 fl (81.0-99.0); Mean Platelet Volume 7.4 fL (7.4-10.4); Platelet Count 254 thou/uL (130-400); RBC Distribution Width 12.7 % (11.5-14.5)
--- NOTE | 2017-12-17 19:23 | RAD ---
RIGHT FOOT: 12/17/17 Three views. HISTORY: Pain. Fifth toe amputation in September. Comparison made to right foot films of 09/26/17. There has been amputation of the fifth digit at the proximal fifth metacarpal since the prior exam. T here is some soft tissue calcification beyond the stump within the soft tissues. No lytic or destruct alethea process seen that would indicate osteomyelitis. IMPRESSION: Post fifth digit amputation since prior exam. Soft tissue calcification at the amputation site. No a cute osseous abnormality identified. POS: CECILIA
[2017-12-17 19:40] LABS: Anion Gap 14 mmol/L (10-20); BUN (Urea Nitrogen) 18 mg/dL (9.8-20.1); Bilirubin, Total 0.2 mg/dL (0.2-1.2); Calc. Creatinine Clearance 0 mL/min (70-130); Calcium 9.8 mg/dL (7.8-10.44); Carbon Dioxide 23 mmol/L (22-29); Chloride 104 mmol/L (98-107); Estimated GFR-MDRD 53; Glucose 128 mg/dL (70-105); Potassium 4.3 mmol/L (3.5-5.1); Protein, Total 7.4 g/dL (6.0-8.3); Sodium 137 mmol/L (136-145)
[2017-12-17 19:41] LABS: ALT (SGPT) 37 U/L (8-55); AST (SGOT) 30 U/L (5-34); Alkaline Phosphatase 75 U/L (40-150); Globulin 3.4 g/dL (2.4-3.5); Magnesium 1.7 mg/dL (1.6-2.6)
== END 2017-12-17 21:59 | disposition home or self-care (01) ==
LOC: ERS 16:22
DX: E11.621 Type 2 diabetes mellitus with foot ulcer (principal); L03.115 Cellulitis of right lower limb; J45.909 Unspecified asthma, uncomplicated; E78.5 Hyperlipidemia, unspecified; I10 Essential (primary) hypertension; K21.9 Gastro-esophageal reflux disease without esophagitis; G43.909 Migraine, unspecified, not intractable, without status migrainosus; F41.9 Anxiety disorder, unspecified; F32.9 Major depressive disorder, single episode, unspecified; Z79.899 Other long term (current) drug therapy; Z79.84 Long term (current) use of oral hypoglycemic drugs
CPT/HCPCS: 36415; 80053; 83605; 83735; 85025; 96365; J3370

== ENCOUNTER 2017-12-20 07:40 | Outpatient (CLI) | payer OTHER ==
[2017-12-23] MEDS ORDERED: Sodium Chloride 0.9% 15 ML NEB ONE (15:56)
== END 2017-12-20 07:41 | disposition home or self-care (01) ==
LOC: WCC 07:40
PROVIDERS: ATTEND Family Medicine
DX: T81.89XD Other complications of procedures, not elsewhere classified, subsequent encounter (principal)
CPT/HCPCS: 29581

== ENCOUNTER 2017-12-26 10:31 | Outpatient (CLI) | payer OTHER ==
--- NOTE | 2017-12-26 12:19 | PRG ---
DATE OF SERVICE: 12/26/2017 HISTORY: Ms. Tony Avery is a very pleasant 52-year-old who presents to the Wound Center for evaluat ion of a wound of the right foot subsequent to amputation of the fifth toe and metatarsal on 09/28/[address] Robinson Vaughan. Negative pressure therapy was initiated intraoperatively and upon discharg e from [facility], the patient was referred to the Wound Center for assistance with dressing changes of the wound VAC. The patient was discharged to home on ciprofloxacin and rif ampin. Since the patient's visit on 12/12/2017, Ms. Avery states that she was seen in the Emergency Department for cellulitis of the right foot. The patient was subsequently seen by Dr. Vaughan. The p atient is presently taking ciprofloxacin p.o. and doxycycline p.o. as per Dr. Vaughan. At the time of the patient's visit on 12/12/2017, Silverlon, Webril, and the 3M Coban 2 layer compression system we re applied to the right lateral foot wound. PHYSICAL EXAMINATION: VITAL SIGNS: Stable. Afebrile. Accu-Chek 211. EXTREMITIES: A wound of the right lateral foot is present which measures approximately 1.3 x 1.2 cm. The dimensions of the wound at the time of the patient's visit on 12/12/2017 were approximately 2.7 x 1.5 cm. Granulation tissue is present within the wound margins. Necrotic and nonviable tissue pr esent within the wound margins was debrided with an excisional full-thickness debridement with the us e of a curette. Callus desiccated tissue and undermining at the periphery of the wound were eliminat ed with the use of scissors. No purulent drainage is associated with the wound. No cellulitis of th e right foot is appreciated. No maceration of the skin of the periwound is noted. A dorsalis pedis pulse is easily palpable on the right. No significant edema of the right foot is present on exam tod ay. ASSESSMENT AND PLAN: 1. Right lateral foot wound subsequent to amputation of the right fifth toe and metatarsal on [address] Robinson Vaughan. Silverlon, Webril, and the 3M Coban two-layer compression system will be applied again to the right lateral foot wound. The patient has completed a course of negative press ure therapy. I will see Ms. Avery again in one week. The patient will be seen by Dr. Vaughan in 2 we eks. 2. Diabetes mellitus. The patient's Accu-Chek in clinic today is 211. The patient has been reminde d that for optimal wound healing, her blood glucoses should remain below 150. 3. Hypertension. 4. Glaucoma. 5. Fibromyalgia. 6. Asthma/chronic obstructive pulmonary disease. 7. Obstructive sleep apnea. 8. History of seizure disorder. 9. Gastroesophageal reflux disease. 10. Migraine headaches. 11. Rheumatoid arthritis/psoriatic arthritis. 12. Lupus. 13. Celiac disease. 14. Osteoarthritis.
[2017-12-26] MEDS ORDERED: Lidocaine 2% Jelly 5 ML TUBE ONE (16:58)
[2017-12-26] MEDS ORDERED: Sodium Chloride 0.9% 15 ML NEB ONE (16:58)
== END 2017-12-26 10:32 | disposition home or self-care (01) ==
LOC: WCC 10:31
PROVIDERS: ATTEND Family Medicine
DX: T87.89 Other complications of amputation stump (principal); Z89.421 Acquired absence of other right toe(s); E11.69 Type 2 diabetes mellitus with other specified complication; I10 Essential (primary) hypertension; H40.9 Unspecified glaucoma; M79.7 Fibromyalgia; J44.9 Chronic obstructive pulmonary disease, unspecified; G47.33 Obstructive sleep apnea (adult) (pediatric); G40.909 Epilepsy, unspecified, not intractable, without status epilepticus; K21.9 Gastro-esophageal reflux disease without esophagitis; G43.909 Migraine, unspecified, not intractable, without status migrainosus; M32.9 Systemic lupus erythematosus, unspecified; K90.0 Celiac disease; M19.90 Unspecified osteoarthritis, unspecified site
CPT/HCPCS: A4218

== ENCOUNTER 2018-01-02 10:26 | Outpatient (CLI) | payer OTHER ==
--- NOTE | 2018-01-02 12:46 | PRG ---
DATE OF SERVICE: 01/02/2018 HISTORY: Ms. Tony Avery is a very pleasant 52-year-old, who presents to the Wound Center for evalua tion of a wound of the right foot subsequent to amputation of the fifth toe and metatarsal on [address] Robinson Vaughan. Negative pressure therapy was initiated intraoperatively and upon dischar ge from [facility], the patient was referred to the Wound Center for assistanc e with dressing changes of the wound VAC. The patient was discharged to home on ciprofloxacin and ri fampin. Ms. Avery was recently seen in the Emergency Department for cellulitis of the right foot. T leah patient was subsequently seen by Dr. Vaughan and was placed on p.o. ciprofloxacin and p.o. doxycycl ine by Dr. Vaughan. The patient has been receiving dressing changes of Silverlon, Webril, and 3M Amarilis n 2-layer compression system for the right lateral foot wound. PHYSICAL EXAMINATION: VITAL SIGNS: Temperature 98.1, pulse 80, respirations 18, blood pressure 182/79. Accu-Chek 360. EXTREMITIES: A wound of the right lateral foot is present, which measures approximately 1.8 x 1.2 cm . Granulation tissue is present within the wound margins. Necrotic and nonviable tissue present wit hin the wound margins was debrided with an excisional full-thickness debridement with the use of a cu rette. Callus desiccated tissue and undermining at the periphery of the wound were eliminated with concepcion lynn use of scissors. Post-debridement measurements were 1.7 x 1.3 cm. No purulent drainage is associ ated with the wound. No cellulitis of the right foot is appreciated. No maceration of the skin of concepcion lynn periwound is noted. No significant edema of the right foot is present on exam today. The dimensi ons of the wound at the time of the patient's last visit were approximately 1.3 x 1.2 cm. ASSESSMENT AND PLAN: 1. Right lateral foot wound subsequent to amputation of the right fifth toe and metatarsal on [address] Robinson Vaughan. Dressing changes of Silvercel 4 x 4s and Kerlix will be initiated today. These dressing changes are to be performed on a daily basis after cleansing and irrigation. The pa tient will be seen by Dr. Vaughan in 1 week. I will see Ms. Avery again in two weeks. 2. Diabetes mellitus. The patient's Accu-Chek in clinic today is 360. The patient has been reminde d that for optimal wound healing, her blood glucoses should remain below 150. 3. Hypertension. 4. Glaucoma. 5. Fibromyalgia. 6. Asthma/chronic obstructive pulmonary disease. 7. Obstructive sleep apnea. 8. History of seizure disorder. 9. Gastroesophageal reflux disease. 10. Migraine headaches. 11. Rheumatoid arthritis/psoriatic arthritis. 12. Lupus. 13. Celiac disease. 14. Osteoarthritis.
== END 2018-01-02 10:27 | disposition home or self-care (01) ==
LOC: WCC 10:26
PROVIDERS: ATTEND Family Medicine
DX: T87.89 Other complications of amputation stump (principal); S91.301D Unspecified open wound, right foot, subsequent encounter; E11.69 Type 2 diabetes mellitus with other specified complication; I10 Essential (primary) hypertension; H40.9 Unspecified glaucoma; M79.7 Fibromyalgia; J44.9 Chronic obstructive pulmonary disease, unspecified; G47.33 Obstructive sleep apnea (adult) (pediatric); K21.9 Gastro-esophageal reflux disease without esophagitis; G43.909 Migraine, unspecified, not intractable, without status migrainosus; M06.9 Rheumatoid arthritis, unspecified; L40.50 Arthropathic psoriasis, unspecified; M32.9 Systemic lupus erythematosus, unspecified; K90.0 Celiac disease; M19.90 Unspecified osteoarthritis, unspecified site; Z86.69 Personal history of other diseases of the nervous system and sense organs
CPT/HCPCS: 11042

== ENCOUNTER 2018-01-18 14:00 | Outpatient (CLI) | payer OTHER ==
--- NOTE | 2018-01-18 16:50 | PRG ---
DATE OF SERVICE: 01/18/2018 HISTORY: Ms. Tony Avery is a very pleasant 52-year-old who presents to the Wound Center for evaluation of a wound of the right foot subsequent to amputation of the fifth toe and metatarsal on 09/28/[address] Robinson Vaughan. Negative pressure therapy was initiated intraoperatively, and upon discharge from [facility], the patient was referred to the Wound Center for assistance with dressing changes of the wound VAC. The patient was discharged to home on ciprofloxacin and rifampin. The patient was recently seen in the Emergency Department for cellulitis of the right foot. The patient was subsequently seen by Dr. Vaughan and was placed on p.o. ciprofloxacin and p.o. doxycycline by Dr. Vaughan. The patient has received dressing changes of Silverlon, Webril, and the 3M Coban 2-layer compression system for the right lateral foot wound. More recently, the patient has been receiving dressing changes of Silvercel, followed by gauze and an Luther bandage for her right lateral foot wound. PHYSICAL EXAMINATION: VITAL SIGNS: Temperature 99.1, pulse 97, respirations 19, blood pressure 183/ 82. Accu-Chek 418. EXTREMITIES: A wound of the right lateral foot is present which measures approximately 1.9 x 1.4 cm. Granulation tissue is present within the wound margins. Necrotic and nonviable tissue present within the wound margins was debrided with an excisional full-thickness debridement. No purulent drainage is associated with the wound. No cellulitis of the right foot is appreciated. No maceration of the skin of the periwound is noted. A dorsalis pedis and posterior tibial pulse are both palpable on the right. No significant edema of the right foot is present on exam today. The dimensions of the wound at the time of the patient's last visit were approximately 1.8 x 1.2 cm. ASSESSMENT AND PLAN: 1. Right lateral foot wound subsequent to amputation of the right fifth toe and metatarsal on 09/28/[address] Robinson Vaughan. Dressing changes of Silvercel, 4 x 4s, Kerlix, and an Luther bandage are to be performed on a daily basis after cleansing and irrigation. I will see Ms. Avery again in two weeks. The patient will be seen by Dr. Vaughan in 3 weeks. 2. Diabetes mellitus. The patient's Accu-Chek in clinic today is 418. The patient has reminded for optimal wound healing, her blood glucoses should remain below 150. 3. Hypertension. 4. Glaucoma. 5. Fibromyalgia. 6. Asthma/chronic obstructive pulmonary disease. 7. Obstructive sleep apnea. 8. History of seizure disorder. 9. Gastroesophageal reflux disease. 10. Migraine headaches. 11. Rheumatoid arthritis/psoriatic arthritis. 12. Lupus. 13. Celiac disease. 14. Osteoarthritis. MTDD
== END 2018-01-18 14:01 | disposition home or self-care (01) ==
LOC: WCC 14:00
PROVIDERS: ATTEND Family Medicine
DX: T81.89XD Other complications of procedures, not elsewhere classified, subsequent encounter (principal); E11.9 Type 2 diabetes mellitus without complications; H40.9 Unspecified glaucoma; M79.7 Fibromyalgia; J44.9 Chronic obstructive pulmonary disease, unspecified; G47.33 Obstructive sleep apnea (adult) (pediatric); I10 Essential (primary) hypertension; K21.9 Gastro-esophageal reflux disease without esophagitis; G43.909 Migraine, unspecified, not intractable, without status migrainosus; M06.9 Rheumatoid arthritis, unspecified; M19.90 Unspecified osteoarthritis, unspecified site; M32.9 Systemic lupus erythematosus, unspecified; K90.0 Celiac disease; Z86.69 Personal history of other diseases of the nervous system and sense organs
CPT/HCPCS: 36416

== ENCOUNTER 2018-01-18 20:04 | Emergency (ER) | payer OTHER, SELFPAY | END 2018-01-18 22:00 | disposition home or self-care (01) | LOC: ERS 20:04 | DX: J11.1 Influenza due to unidentified influenza virus with other respiratory manifestations (principal); E78.5 Hyperlipidemia, unspecified; I10 Essential (primary) hypertension; K21.9 Gastro-esophageal reflux disease without esophagitis; E11.40 Type 2 diabetes mellitus with diabetic neuropathy, unspecified; Z79.84 Long term (current) use of oral hypoglycemic drugs; Z79.899 Other long term (current) drug therapy | CPT/HCPCS: 99283 ==

== ENCOUNTER 2018-02-01 10:59 | Outpatient (CLI) | payer OTHER ==
--- NOTE | 2018-02-01 12:45 | PRG ---
DATE OF SERVICE: 02/01/2018 HISTORY: Ms. Tony Avery is a very pleasant 52-year-old who presents to the Wound Center for evaluat ion of a wound of the right foot subsequent to amputation of the fifth toe and metatarsal on 09/28/[address] Robinson Vaughan. Negative pressure therapy was initiated intraoperatively and upon discharg e from [facility], the patient was referred to the Wound Center for assistance with dressing changes of the wound VAC. The patient was discharged to home on ciprofloxacin and rif ampin. The patient has received dressing changes of Silverlon, Webril, and 3M Coban 2 layer compress ion system for the right lateral foot wound. More recently, the patient has been receiving dressing changes of Silvercel gauze and an Luther bandage for her right lateral foot wound. PHYSICAL EXAMINATION: VITAL SIGNS: Temperature 99.1, pulse 97, respirations 18, blood pressure 190/97. Accu-Chek 247. EXTREMITIES: A wound of the right lateral foot is present, which measures approximately 1.7 x 1.6 cm . The dimensions of the wound at the time of the patient's visit on 01/18/2018 were approximately 1. 9 x 1.4 cm. Granulation tissue is present within the wound margins. Necrotic and nonviable tissue p resent within the wound margins was debrided with an excisional full-thickness debridement with the u se of a curet. No purulent drainage is associated with the wound. No cellulitis of the right foot i s appreciated. No maceration of the skin of the periwound is noted. No significant edema of the rig ht foot is present on exam today. Undermining callus and desiccated tissue at the periphery of the w ound were also excised with the use of scissors. ASSESSMENT AND PLAN: 1. Right lateral foot wound subsequent to amputation of the right fifth toe and metatarsal on [address] Robinson Vaughan. Dressing changes of Silvercel, 4 x 4s, Kerlix, and an Luther bandage will b e continued on a daily basis after cleansing and irrigation. The patient will be seen by Dr. Vaughan in 1 week. I will see Ms. Avery again in two weeks. 2. Diabetes mellitus. The patient's Accu-Chek in clinic today is 247. The patient has been reminde d that for optimal wound healing, her blood glucoses should remain below 150. 3. Hypertension. 4. Glaucoma. 5. Fibromyalgia. 6. Asthma, chronic obstructive pulmonary disease. 7. Obstructive sleep apnea. 8. History of seizure disorder. 9. Gastroesophageal reflux disease. 10. Migraine headaches. 11. Rheumatoid arthritis/psoriatic arthritis. 12. Lupus. 13. Celiac disease. 14. Osteoarthritis.
== END 2018-02-01 11:00 | disposition home or self-care (01) ==
LOC: WCC 10:59
PROVIDERS: ATTEND Family Medicine
DX: T81.89XD Other complications of procedures, not elsewhere classified, subsequent encounter (principal); Z89.431 Acquired absence of right foot; E11.9 Type 2 diabetes mellitus without complications; I10 Essential (primary) hypertension; H40.9 Unspecified glaucoma; M79.7 Fibromyalgia; J44.9 Chronic obstructive pulmonary disease, unspecified; G47.33 Obstructive sleep apnea (adult) (pediatric); K21.9 Gastro-esophageal reflux disease without esophagitis; G43.909 Migraine, unspecified, not intractable, without status migrainosus; K90.0 Celiac disease; M19.90 Unspecified osteoarthritis, unspecified site; Z86.69 Personal history of other diseases of the nervous system and sense organs
CPT/HCPCS: 11042; A4218

== ENCOUNTER 2018-02-03 18:58 | Inpatient (IN) | payer OTHER, SELFPAY ==
[2018-02-03 20:04] LABS: #Basophils 0.1 thou/uL (0.0-0.2); #Eosinphils 0.3 thou/uL (0.0-0.7); #Lymphocytes 2.9 thou/uL (1.20-3.40); #Monocytes 0.8 thou/uL (0.11-0.59); #Neutrophils 7.9 thou/uL (1.40-6.50); %Basophils 0.5 % (0.0-1.0); %Eosinophils 2.6 % (0.0-10.0); %Lymphocytes 24.5 % (21.0-51.0); %Monocytes 6.4 % (0.0-10.0); Hemoglobin 12.6 g/dL (12.0-16.0); Mean Corpuscular HGB CONC 34.8 g/dL (32.0-36.0); Mean Corpuscular Hemoglobin 28.5 pg (27.0-31.0); Mean Platelet Volume 7.2 fL (7.4-10.4); Platelet Count 299 thou/uL (130-400); RBC Distribution Width 13.2 % (11.5-14.5)
--- NOTE | 2018-02-03 20:12 | RAD ---
RIGHT FOOT THREE VIEWS: 02/03/18 HISTORY: Wound evaluation. Right foot pain. FINDINGS/IMPRESSION: Comparison made with exam of 12/07/17. Changes of amputation of the fifth digit at the level of the fifth metatarsal are again seen. There i s continued soft tissue calcification at the site of amputation. A soft tissue defect is seen at the lateral aspect of the foot at the level of the fifth metatarsal. The remainder of the bony structures are otherwise unchanged. POS: GABE
[2018-02-03 20:27] LABS: ALT (SGPT) 27 U/L (8-55); AST (SGOT) 32 U/L (5-34); Albumin 3.8 g/dL (3.5-5.0); Alkaline Phosphatase 97 U/L (40-150); Anion Gap 16 mmol/L (10-20); BUN (Urea Nitrogen) 15 mg/dL (9.8-20.1); Bilirubin, Total 0.2 mg/dL (0.2-1.2); Calc. Creatinine Clearance 0 mL/min (70-130); Calcium 9.7 mg/dL (7.8-10.44); Carbon Dioxide 23 mmol/L (22-29); Chloride 104 mmol/L (98-107); Estimated GFR-MDRD 42; Globulin 3.7 g/dL (2.4-3.5); Glucose 239 mg/dL (70-105); Potassium 4.7 mmol/L (3.5-5.1); Protein, Total 7.5 g/dL (6.0-8.3); Sodium 138 mmol/L (136-145)
[2018-02-03] MEDS ORDERED: Fentanyl 100 MCG/2 ML VIAL ONE (20:50)
[2018-02-03 22:49] VITALS: BMI 43.2
[2018-02-03] MEDS ORDERED: Vancomycin HCl 1.5 GM in Sodium Chloride 0.9% 250 ML 300 ML IVPB SCH (23:00)
[2018-02-04] MEDS: traMADol HCl 50 MG TAB PO PRN ×2 (04:03→17:29)
[2018-02-04] MEDS ORDERED: Dextrose 50% Abboject 50 ML SYRINGE SLOW IVP PRN (06:21)
[2018-02-04] MEDS ORDERED: Ondansetron HCl/PF 4 MG/2 ML Vial IVP PRN (06:21)
[2018-02-04] MEDS ORDERED: Insulin Regular 300 UNITS/3 ML VIAL SC PRN (06:21)
[2018-02-04] MEDS ORDERED: Acetaminophen 325 MG TAB PO PRN (06:21)
[2018-02-04] MEDS ORDERED: Calcium Carbonate 500 MG ChewTAB PO PRN (06:21)
[2018-02-04] MEDS ORDERED: Mag-Al 1200 mg/1200 mg/30 ML UDCUP PO PRN (06:21)
[2018-02-04] MEDS ORDERED: Dextrose 5% in Water 1,000 ML IV PRN (06:21)
[2018-02-04] MEDS ORDERED: Ondansetron ODT 4 MG TAB PO PRN (06:21)
[2018-02-04] MEDS ORDERED: Senokot 8.6 MG TAB PO PRN (06:21)
[2018-02-04] MEDS ORDERED: Vancomycin HCl 1 GM in Premix Bag 1 BAG IVPB SCH ×2 (06:30→22:00)
[2018-02-04] MEDS: Sodium Chloride 0.9% 1,000 ML IV SCH ×2 (06:47→21:13)
--- NOTE | 2018-02-04 06:52 | HP ---
DATE OF ADMISSION: 02/03/2018 The patient was seen and examined on 02/03/2018. PRIMARY CARE PHYSICIAN: Juliette Chan N.P. HISTORY OF PRESENT ILLNESS: The patient is a 52-year-old white female with diabetes mellitus, type 2 ; CKD, stage 3, diabetic neuropathy with amputation of the right fifth toe with metatarsal for diabet ic ulcer in 09/2017, presented to the emergency room with fever. The patient is followed by [facility]. The wound from the above surgery is still not healed. She had a maximum temperature of 100.8 at home. She also noticed some discomfort over the wound. She felt feverish; however, denies any chil ls. No cough, shortness of breath, wheezing, or trauma reported. In the emergency room, initial vital signs showed temperature 100.1, respirations 18, pulse of 93 wit h a blood pressure of 172/96 with O2 saturation of 95% on room air. Her x-ray of the right foot was negative for osteomyelitis. She received vancomycin and Levaquin in the emergency room with IV fluid s. PAST MEDICAL HISTORY: 1. Diabetes mellitus, type 2, with diabetic neuropathy. 2. Hypertension. 3. Glaucoma. 4. Fibromyalgia. 5. Asthma/chronic obstructive pulmonary disease. 6. Obstructive sleep apnea, on CPAP. 7. Seizure disorder. 8. GERD. 9. Migraine headaches. 10. Rheumatoid arthritis/psoriatic arthritis. 11. Systemic lupus erythematosus. 12. Celiac disease. 13. Osteoarthritis. PAST SURGICAL HISTORY: 1. Tonsillectomy and adenoidectomy. 2. Total abdominal hysterectomy. 3. Bilateral tubal ligation. 4. Cholecystectomy. 5. Cyst removal from the right breast. 6. Amputation of the right fifth toe with metatarsal on 09/28/2017. 7. History of exploratory laparotomy, neck surgery for deviated nasal septum. 8. Hemorrhoidectomy. ALLERGIES: Patient is allergic to several medications including PENICILLIN, CEPHALOSPORINS, and FISH . CURRENT HOME MEDICATIONS: Patient does not remember any of her home medications. Family to bring ac curate list of medications. SOCIAL HISTORY: She quit smoking in 2009 and has [id number] smoking history. No alcohol or drug u se. FAMILY HISTORY: Positive for diabetes mellitus, type 2, and heart disease. REVIEW OF SYSTEMS: The following complete review of systems was negative, unless otherwise mentioned in the HPI or below: Constitutional: Weight loss or gain, ability to conduct usual activities. Sk in: Rash, itching. Eyes: Double vision, pain. ENT/Mouth: Nose bleeding, neck stiffness, pain, te nderness. Cardiovascular: Palpitations, dyspnea on exertion, orthopnea. Respiratory: Shortness of breath, wheezing, cough, hemoptysis, fever, or night sweats. Gastrointestinal: Poor appetite, abdo charis pain, heartburn, nausea, vomiting, constipation, or diarrhea. Genitourinary: Urgency, frequen cy, dysuria, nocturia. Musculoskeletal: Pain, swelling. Neurologic/Psychiatric: Anxiety, depressi on. Allergy/Immunologic: Skin rash, bleeding tendency. PHYSICAL EXAMINATION: VITAL SIGNS: As discussed above. GENERAL: A 52-year-old female, morbidly obese, in no apparent distress. HEENT: Head, atraumatic and normocephalic. Sclerae are anicteric. Moist mucous membrane. No oral lesion. NECK: Supple, no JVD appreciated. No carotid bruit. LUNGS: Clear to auscultation bilaterally. HEART: S1, S2 present. Regular rate and rhythm. No murmur or rubs. ABDOMEN: Soft, nontender, bowel sounds present. EXTREMITIES: Dressing noted over the amputated right toe. Per ER record, there was skin erythema an d tenderness around the wound. SKIN: As above. LYMPH NODES: No palpable lymph nodes in the neck. NEUROLOGIC: Grossly nonfocal. Moves all 4 extremities. PSYCHIATRY: Alert, awake, oriented x3. LYMPH NODES: No palpable lymph nodes in the neck and groin. LABORATORY FINDINGS: WBC of 12 with hemoglobin 12.6. ESR 32. CRP 1.6. Creatinine 1.3, lactic acid 1.6, potassium 4.7. X-ray of the foot, by my review, as discussed above. IMPRESSION: 1. Infected diabetic foot ulcer/cellulitis, rule out osteomyelitis. 2. Diabetes mellitus, type 2, with diabetic neuropathy. 3. Hypertension. 4. Glaucoma. 5. Fibromyalgia. 6. Asthma/chronic obstructive pulmonary disease. 7. Obstructive sleep apnea, on CPAP. 8. Seizure disorder. 9. Gastroesophageal reflux disease. 10. History of migraine headache. 11. Rheumatoid arthritis/psoriatic arthritis. 12. Systemic lupus erythematosus. 13. Celiac disease. 14. Degenerative joint disease. PLAN: The patient will be monitored on the medical floor. Infectious Disease consultation will be o btained. We will continue vancomycin and Levaquin. Wound care. Insulin sliding scale. Resume home medications once confirmed. Walking program. Vital signs every shift. Plan of care was discussed with the patient in detail. She stated understanding.
[2018-02-04] MEDS ORDERED: Non-Formulary Item 1 EACH (Metformin Hcl [Metformin Hcl] 1,000 MG) PO SCH (08:00)
[2018-02-04] MEDS: Saccharomyces boulardii 250 MG CAP PO SCH (08:25)
[2018-02-04] MEDS: Famotidine 20 MG TAB PO SCH ×2 (08:25→19:58)
[2018-02-04] MEDS: metFORMIN 500 MG TAB PO SCH ×2 (08:26→17:19)
[2018-02-04] MEDS: Lisinopril 10 MG TAB PO SCH (08:27)
[2018-02-04] MEDS: Docusate 100 MG CAP PO SCH ×2 (08:28→19:57)
[2018-02-04] MEDS ORDERED: Beclomethasone 40 mcg 120 PUFF/8.7 GM INH INH SCH (09:00)
--- NOTE | 2018-02-04 09:49 | PDOC.PN ---
- Subjective Encounter Start Date: 02/04/18 Encounter Start Time: 09:00 -: old records requested/rev Patient seen and examined. No new complaints. No overnight events - Objective Resuscitation Status: Resuscitation Status FULL:Full Resuscitation MAR Reviewed: Yes Vital Signs & Weight: Vital Signs (12 hours) Temp Pulse Resp BP Pulse Ox 02/04/18 08:12 98.2 F 81 16 184/87 H 92 L 02/04/18 04:26 98.8 F 89 16 169/86 H 97 02/04/18 00:34 99.7 F H 91 17 166/79 H 96 02/03/18 22:48 99.3 F 83 20 197/88 H 96 02/03/18 22:28 99.3 F 83 20 96 Weight Admit Weight 229 lb 3.2 oz Weight 229 lb 3.2 oz I&O: 02/03/18 02/04/18 02/05/18 06:59 06:59 07:59 Intake Total 1218 Balance 1218 Result Diagrams: 02/03/18 19:51 02/03/18 19:51 Additional Labs: Accuchecks 02/04/18 02/03/18 05:55 22:22 POC Glucose 251 H 186 H Radiology Reviewed by me: Yes Phys Exam - Physical Examination Constitutional: NAD HEENT: PERRLA, moist MMs, sclera anicteric Neck: no JVD, supple Respiratory: no wheezing, no rales, no rhonchi, clear to auscultation bilateral Cardiovascular: RRR, no significant murmur, no rub Gastrointestinal: soft, non-tender, no distention, positive bowel sounds Musculoskeletal: no edema, pulses present right lateral aspect wound with dressing on foot Neurological: non-focal, normal sensation, moves all 4 limbs Psychiatric: normal affect, A&O x 3 Skin: no rash, normal turgor Dx/Plan (1) Diabetic foot infection Code(s): E11.69 - TYPE 2 DIABETES MELLITUS WITH OTHER SPECIFIED COMPLICATION; L08.9 - LOCAL INFECTION OF THE SKIN AND SUBCUTANEOUS TISSUE, UNSP Status: Acute (2) Diabetic foot ulcer Code(s): E11.621 - TYPE 2 DIABETES MELLITUS WITH FOOT ULCER; L97.509 - NON- PRESSURE CHRONIC ULCER OTH PRT UNSP FOOT W UNSP SEVERITY Status: Acute Qualifiers: Diabetic foot ulcer location: toe Diabetes mellitus type: type 2 Laterality: right (3) Anxiety and depression Code(s): F41.8 - OTHER SPECIFIED ANXIETY DISORDERS Status: Chronic (4) CKD (chronic kidney disease), stage III Code(s): N18.3 - CHRONIC KIDNEY DISEASE, STAGE 3 (MODERATE) Status: Chronic (5) Diabetic neuropathy Code(s): E11.40 - TYPE 2 DIABETES MELLITUS WITH DIABETIC NEUROPATHY, UNSP Status: Chronic Qualifiers: Diabetes mellitus type: type 2 Diabetes mellitus complication detail: diabetic polyneuropathy Qualified Code(s): E11.42 - Type 2 diabetes mellitus with diabetic polyneuropathy (6) Dyslipidemia Code(s): E78.5 - HYPERLIPIDEMIA, UNSPECIFIED Status: Chronic (7) GERD (gastroesophageal reflux disease) Code(s): K21.9 - GASTRO-ESOPHAGEAL REFLUX DISEASE WITHOUT ESOPHAGITIS Status: Chronic Qualifiers: Esophagitis presence: esophagitis presence not specified Qualified Code(s) : K21.9 - Gastro-esophageal reflux disease without esophagitis (8) Hypertension Code(s): I10 - ESSENTIAL (PRIMARY) HYPERTENSION Status: Chronic Qualifiers: Hypertension type: essential hypertension Qualified Code(s): I10 - Essential (primary) hypertension (9) Morbid obesity with BMI of 40.0-44.9, adult Code(s): E66.01 - MORBID (SEVERE) OBESITY DUE TO EXCESS CALORIES; Z68.41 - BODY MASS INDEX (BMI) 40.0-44.9, ADULT Status: Chronic (10) SONYA on CPAP Code(s): G47.33 - OBSTRUCTIVE SLEEP APNEA (ADULT) (PEDIATRIC); Z99.89 - DEPENDENCE ON OTHER ENABLING MACHINES AND DEVICES Status: Chronic - Plan cont current plan of care, continue antibiotics * will consult general surgery * will get MRI to rule out osteomyelitis * medication reviewed as below * symptomatic treatment. * continue IV antibiotics, levaquin and vancomycin * ID consulted * home meds reconciled Review of Systems - Review of Systems Constitutional: negative: fever, chills, sweats, weakness, malaise, other ENT: negative: Ear Pain, Ear Discharge, Nose Pain, Nose Discharge, Nose Congestion, Mouth Pain, Mouth Swelling, Throat Pain, Throat Swelling, Other Respiratory: negative: Cough, Dry, Shortness of Breath, Hemoptysis, SOB with Excertion, Pleuritic Pain, Sputum, Wheezing Cardiovascular: negative: chest pain, palpitations, orthopnea, paroxysmal nocturnal dyspnea, edema, light headedness, other Gastrointestinal: negative: Nausea, Vomiting, Abdominal Pain, Diarrhea, Constipation, Melena, Hematochezia, Other Genitourinary: negative: Dysuria, Frequency, Incontinence, Hematuria, Retention , Other Musculoskeletal: negative: Neck Pain, Shoulder Pain, Arm Pain, Back Pain, Hand Pain, Leg Pain, Foot Pain, Other Skin: negative: Rash, Lesions, Luis, Bruising, Other - Medications/Allergies Allergies/Adverse Reactions: Allergies Allergy/AdvReac Type Severity Reaction Status Date / Time cefuroxime axetil Allergy Severe Anaphylaxis Verified 09/26/17 23:35 [From Ceftin] codeine Allergy Severe Hives Verified 09/26/17 23:35 duloxetine HCl Allergy Severe Hives Verified 09/26/17 23:35 [From Cymbalta] Penicillins Allergy Severe Anaphylaxis Verified 09/26/17 23:35 amoxicillin Allergy Verified 09/26/17 23:35 ampicillin Allergy Verified 09/26/17 23:35 Fish Containing Products Allergy Verified 09/26/17 23:35 gluten Allergy Verified 09/26/17 23:35 shellfish derived Allergy Verified 09/26/17 23:35 Sulfa (Sulfonamide Allergy Verified 09/26/17 23:35 Antibiotics) gabapentin AdvReac Severe Verified 02/03/18 22:50 Medications: Current Medications Acetaminophen (Tylenol) 650 mg PO Q4H PRN PRN Reason: Headache/Fever or Pain Al Hydroxide/Mg Hydroxide (Maalox) 30 ml PO Q6H PRN PRN Reason: Heartburn or Indigestion Calcium Carbonate (Tums) 1,000 mg PO Q4H PRN PRN Reason: Heartburn or Indigestion Dextrose/Water (Dextrose 50%) 25 gm SLOW IVP PRN PRN PRN Reason: Hypoglycemia Docusate Sodium (Colace) 100 mg PO BID [facility] Last Admin: 02/04/18 08:28 Dose: Not Given Enoxaparin Sodium (Lovenox) 40 mg SC 2100 [facility] Famotidine (Pepcid) 20 mg PO BID [facility] Last Admin: 02/04/18 08:25 Dose: 20 mg Glipizide (Glucotrol Xl) 5 mg PO BID [facility] Last Admin: 02/04/18 08:26 Dose: 5 mg Glucagon (Glucagon) 1 mg IM PRN PRN PRN Reason: Hypoglycemia Dextrose/Water (D5w) 1,000 mls @ 0 mls/hr IV .Q0M PRN; As Directed PRN Reason: Hypoglycemia Sodium Chloride (Normal Saline 0.9%) 1,000 mls @ 50 mls/hr IV .Q20H [facility] Last Admin: 02/04/18 06:47 Dose: Not Given Vancomycin HCl 1 gm/ Device 200 mls @ 200 mls/hr IVPB 2200 [facility] Levofloxacin 250 mg/ Device 50 mls @ 100 mls/hr IVPB 2100 [facility] Insulin Human Regular (Humulin R) 0 units SC .MILD SLIDING SCALE PRN PRN Reason: Mild Correctional Scale Insulin Human Regular (Humulin R) 0 units SC .BEDTIME SLIDING SC PRN PRN Reason: Bedtime Correctional Scale Lisinopril (Zestril) 10 mg PO DAILY [facility] Last Admin: 02/04/18 08:27 Dose: 10 mg Metformin HCl (Glucophage) 1,000 mg PO BID-WM [facility] Last Admin: 02/04/18 08:26 Dose: 1,000 mg Mirtazapine (Remeron) 15 mg PO HS [facility] Miscellaneous Medication (Pharmacy To Dose) 1 each IVPB ASDIR [facility] Mometasone Furoate (Asmanex Hfa 100 Mcg) 1 puff INH BID-RT [facility] Ondansetron HCl (Zofran Odt) 4 mg PO Q6H PRN PRN Reason: Nausea/Vomiting Ondansetron HCl (Zofran) 4 mg IVP Q6H PRN PRN Reason: Nausea/Vomiting (Melatonin/Pyridoxine Hcl (B6) [Melatonin 10 Mg Tablet] 40 Mg 0 each PO HS [facility] Saccharomyces Boulardii (Florastor) 250 mg PO DAILY [facility] Last Admin: 02/04/18 08:25 Dose: 250 mg Senna (Senokot) 2 tab PO HSPRN PRN PRN Reason: Constipation Sertraline HCl (Zoloft) 250 mg PO HS [facility] Sodium Chloride (Flush - Normal Saline) 10 ml IVF Q12HR [facility] Last Admin: 02/04/18 08:30 Dose: 10 ml Sodium Chloride (Flush - Normal Saline) 10 ml IVF PRN PRN PRN Reason: Saline Flush Tramadol HCl (Ultram) 50 mg PO Q4H PRN PRN Reason: Moderate Pain (4-6) Last Admin: 02/04/18 04:03 Dose: 50 mg
[2018-02-04] MEDS ORDERED: Gadobenate Dimeglumine 529 MG/1 ML (20ML VIAL) ONE (13:58)
--- NOTE | 2018-02-04 14:11 | MRI ---
MRI OF THE LEFT FOOT: Date: 02/04/18 PROVIDED CLINICAL HISTORY: Foot ulcer. FINDINGS: Evaluation is limited by patient motion. Postoperative changes of resection of the fifth ray distal to the proximal metatarsal shaft are demon strated. There is heterogeneous signal alteration involving the immediate surrounding soft tissues di stal to the amputation. There is no definite evidence for a focal fluid collection to suggest abscess . Enhancement of the tissues in this region may reflect postoperative granulation tissue versus phleg mon. There is minimal signal alteration on fluid sensitive sequences involving the remaining distal f ifth metatarsal. There is associated contrast enhancement in this region. No definite T1 marrow signa l alteration is seen. Regional marrow signal appears otherwise unremarkable. There is no evidence for significant tenosynov ial fluid. Nonspecific, noncircumscribed, nonenhancing fluid signal intensity within the subcutaneous adipose layer at the dorsum of the foot. IMPRESSION: Postoperative changes involving the fifth ray as described above, with signal alteration involving th e remaining fifth metatarsal that could reflect reactive osteitis or early osteomyelitis. No evidence for soft tissue abscess. Limitations in evaluation due to patient motion. POS: CECILIA
[2018-02-04] MEDS: Insulin Regular 300 UNITS/3 ML VIAL SC PRN (17:19)
[2018-02-04] MEDS ORDERED: ALPRAZolam 0.5 MG TAB PO PRN (18:14)
[2018-02-04] MEDS: Mometasone 100 MCG HFA INHALER INH SCH (19:19)
[2018-02-04] MEDS: Enoxaparin Sodium 40 MG/0.4 ML SYRINGE SC SCH (19:57)
[2018-02-04] MEDS: Mirtazapine 15 MG TAB PO SCH (19:59)
--- NOTE | 2018-02-04 20:09 | HP ---
HISTORY: Tony Avery is 52-year-old female who was informed to see me in the next few days. Patient underwent 09/28/2017 amputation of the right small toe and metatarsal. Wound opened to heal by seco nd intention, a wound VAC applied. She had good blood supply and has palpable pedal pulses. She is morbidly obese, 5 feet 1 inch, 221 pounds, 43 BMI, and is insulin-dependent diabetic and hypertension . She has been undergoing wound care and the wound seemed to be healing. She developed some redness of her foot, reported to the emergency room and has been treated with intravenous antibiotics in the hospital since yesterday. She is allergic to PENICILLINS and she was started on Levaquin and vancom ycin. Blood cultures positive for Gram-positive augustus, one of two cultures. X-rays of her foot reveal ed postoperative changes in the right foot with overlying this wound. Patient subsequently had an MR I performed today right foot noting postoperative changes around the fifth metatarsal changes that co uld reflect early osteitis. No other significant abnormalities were noted. She does have an open wo und and there is communication to the head of the metatarsal. Because of these findings and because of the cellulitis, which has improved since been in the hospital, I have recommended surgical washout and evaluation, debridement of the metatarsal head slightly more proximal and application of wound V AC and we will perform on the Tuesday morning. She understands the risks and benefits and consents. ALLERGIES: CEFUROXIME, CODEINE, DULOXETINE, PENICILLINS and more. TOBACCO: None. ALCOHOL: None. MEDICATIONS: List unchanged. Tylenol, DuoNebs, alogliptin, Xanax, Tessalon, vitamin D3, Catapres, a lprazolam, iron sulfate, melatonin at bedtime, lisinopril 10 mg a day, Sertraline 200 mg at bedtime, glipizide 10 mg b.i.d., metformin 1000 b.i.d., Januvia 100 mg daily, tramadol p.r.n., Combivent inhal er p.r.n., albuterol inhaler p.r.n., Flovent Diskus inhaler p.r.n., nystatin, furosemide, QVAR, potas sium chloride. PAST MEDICAL HISTORY: Morbid obesity, metabolic syndrome, hypertension, diabetes mellitus. Patient reports having cardiac stress test several years ago were negative. Restless leg syndrome, migraines , glaucoma, asthma, sleep apnea, morbid obesity, celiac disease, hypertension, psoriatic arthritis, r heumatoid arthritis, metabolic syndrome, fibromyalgia, history of lupus, and chronic kidney disease. PAST SURGICAL HISTORY: Appendectomy, total hysterectomy, cholecystectomy, tubal ligation, cyst remov al, exploratory laparotomy surgery, amputation of the right fifth toe and metatarsal. PHYSICAL EXAMINATION: VITAL SIGNS: 5 feet 1, 229 pounds, 43 BMI, 99 degrees, 94, 20, 191/106. HEAD, EYES, EARS, NOSE, AND THROAT: Unremarkable. LUNGS: Clear to auscultation. CARDIAC: Regular rate and rhythm without murmur or gallop. ABDOMEN: Obese, soft, nontender. EXTREMITIES: Palpable femoral, popliteal pedal pulses. Open wound right foot over previously amputa lambert right fifth toe and metatarsal. There is an opening communicated and metatarsal head when probed with a Q-tip. There is resolving cellulitis over the dorsum of the foot. LABORATORY DATA: White count 12, hemoglobin 12. Sodium 138, BUN 15, creatinine 1.33. ASSESSMENT AND PLAN: 1. Cellulitis, right foot, previous knee amputation of right small fifth toe and metatarsal. Due to the clinical findings, even though radiological findings and both MRI are equivocal for osteomyeliti s, I would recommend surgical debridement, washout, and resection of a small part of the fifth metata rsal head to facilitate wound healing, application of the wound VAC to encourage this wound to heal. 2. Morbid obesity, metabolic syndrome. She would be an excellent bariatric candidate. 3. Hypertension. 4. Diabetes mellitus. 5. Fibromyalgia. 6. Lupus. 7. Arthritis rheumatoid. 8. Psoriatic.
[2018-02-04] MEDS ORDERED: MELATONIN PO SCH ×2 (21:00)
[2018-02-04] MEDS ORDERED: [UNRECOGNIZED DRUG - OTHER] PO SCH (21:00)
[2018-02-04] MEDS ORDERED: PYRIDOXINE HCL PO SCH ×2 (21:00)
[2018-02-04] MEDS ORDERED: hydrALAZINE 20 MG/ML VIAL SLOW IVP PRN (21:37)
[2018-02-04] MEDS ORDERED: Melatonin 3 MG TAB PO PRN (21:39)
[2018-02-04] MEDS ORDERED: Pregabalin 50 MG CAP PO SCH (21:45)
[2018-02-04] MEDS ORDERED: Loperamide HCl 2 MG CAP PO PRN (21:59)
[2018-02-05 04:41] LABS: #Eosinphils 0.5 thou/uL (0.0-0.7); #Monocytes 0.7 thou/uL (0.11-0.59); #Neutrophils 5.3 thou/uL (1.40-6.50); %Basophils 0.5 % (0.0-1.0); %Eosinophils 4.7 % (0.0-10.0); %Lymphocytes 31.7 % (21.0-51.0); %Monocytes 7.2 % (0.0-10.0); %Neutrophils 55.9 % (42.0-75.0); Hemoglobin 11.8 g/dL (12.0-16.0); Mean Corpuscular HGB CONC 34.7 g/dL (32.0-36.0); Mean Corpuscular Hemoglobin 28.6 pg (27.0-31.0); Mean Corpuscular Volume 82.3 fl (81.0-99.0); Mean Platelet Volume 7.3 fL (7.4-10.4); Platelet Count 245 thou/uL (130-400); RBC Distribution Width 13.3 % (11.5-14.5); Red Blood Cell (RBC) Count 4.13 mill/uL (4.20-5.40); White Blood Cell (WBC) Count 9.5 thou/uL (4.8-10.8)
[2018-02-05 04:54] LABS: ALT (SGPT) 23 U/L (8-55); AST (SGOT) 32 U/L (5-34); Albumin 3.4 g/dL (3.5-5.0); Alkaline Phosphatase 82 U/L (40-150); Anion Gap 12 mmol/L (10-20); BUN (Urea Nitrogen) 24 mg/dL (9.8-20.1); Bilirubin, Total 0.3 mg/dL (0.2-1.2); Calc. Creatinine Clearance 96 mL/min (70-130); Calcium 9.8 mg/dL (7.8-10.44); Carbon Dioxide 27 mmol/L (22-29); Chloride 100 mmol/L (98-107); Estimated GFR-MDRD 52; Globulin 3.2 g/dL (2.4-3.5); Glucose 197 mg/dL (70-105); Potassium 4.1 mmol/L (3.5-5.1); Protein, Total 6.6 g/dL (6.0-8.3); Sodium 135 mmol/L (136-145)
[2018-02-05] MEDS: Mometasone 100 MCG HFA INHALER INH SCH ×2 (05:47→19:06)
[2018-02-05] MEDS ORDERED: Nystatin Cream 30 GM TUBE TOP PRN ×2 (06:38→06:49)
[2018-02-05] MEDS ORDERED: diphenhydrAMINE 25 MG CAP PO PRN (06:38)
[2018-02-05] MEDS ORDERED: Non-Formulary Item 1 EACH (Sumatriptan Succinate [Imitrex] 100 MG) PO PRN (06:38)
[2018-02-05] MEDS ORDERED: ALPRAZolam 1 MG TAB PO PRN (06:38)
[2018-02-05] MEDS ORDERED: SUMAtriptan Succinate 50 MG TAB PO PRN (06:48)
[2018-02-05] MEDS ORDERED: Fluticasone Propionate Nasal Spray 16 gm Bottle NASAL SCH (09:00)
[2018-02-05] MEDS ORDERED: POTASSIUM CHLORIDE 10 MEQ PO SCH (09:00)
[2018-02-05] MEDS ORDERED: Non-Formulary Item 1 EACH (Pregabalin [Lyrica] 150 MG) PO SCH (09:00)
[2018-02-05] MEDS ORDERED: Non-Formulary Item 1 EACH (Ferrous Sulfate [Iron] 325 MG) PO SCH (09:00)
[2018-02-05] MEDS ORDERED: Non-Formulary Item 1 EACH (Rosuvastatin Calcium [Crestor] 40 MG) PO SCH (09:00)
--- NOTE | 2018-02-05 09:29 | PDOC.PN ---
- Subjective Encounter Start Date: 02/05/18 Encounter Start Time: 08:40 Patient seen and examined. No new complaints. No overnight events - Objective Resuscitation Status: Resuscitation Status FULL:Full Resuscitation MAR Reviewed: Yes Vital Signs & Weight: Vital Signs (12 hours) Temp Pulse Resp BP BP Pulse Ox 02/05/18 07:48 98.2 F 93 20 166/74 H 95 02/05/18 05:47 80 14 96 02/05/18 03:50 97.5 F L 78 16 161/98 H 94 L 02/05/18 03:37 93 L 02/04/18 23:55 98.6 F 84 16 195/88 H 96 02/04/18 21:55 87 189/95 H 02/04/18 20:40 98.9 F 87 18 189/95 H 97 Weight Admit Weight 229 lb 3.2 oz Weight 229 lb 3.2 oz I&O: 02/04/18 02/05/18 02/06/18 05:59 06:59 06:59 Intake Total Balance Result Diagrams: 02/05/18 04:20 02/05/18 04:20 Additional Labs: Accuchecks 02/05/18 02/04/18 02/04/18 05:26 20:42 16:38 POC Glucose 212 H 280 H 245 H Radiology Reviewed by me: Yes (MRI) Phys Exam - Physical Examination Constitutional: NAD HEENT: PERRLA, moist MMs, sclera anicteric Neck: no JVD, supple Respiratory: no wheezing, no rales, no rhonchi Cardiovascular: RRR, no significant murmur, no rub Gastrointestinal: soft, non-tender, no distention, positive bowel sounds Musculoskeletal: no edema, pulses present right foot with dressing Neurological: non-focal, normal sensation, moves all 4 limbs Psychiatric: normal affect, A&O x 3 Skin: no rash, normal turgor Dx/Plan (1) Acute osteomyelitis of metatarsal bone of right foot Code(s): M86.171 - OTHER ACUTE OSTEOMYELITIS, RIGHT ANKLE AND FOOT Status: Acute (2) Diabetic foot infection Code(s): E11.69 - TYPE 2 DIABETES MELLITUS WITH OTHER SPECIFIED COMPLICATION; L08.9 - LOCAL INFECTION OF THE SKIN AND SUBCUTANEOUS TISSUE, UNSP Status: Acute (3) Diabetic foot ulcer Code(s): E11.621 - TYPE 2 DIABETES MELLITUS WITH FOOT ULCER; L97.509 - NON- PRESSURE CHRONIC ULCER OTH PRT UNSP FOOT W UNSP SEVERITY Status: Acute Qualifiers: Diabetic foot ulcer location: toe Diabetes mellitus type: type 2 Laterality: right (4) Anxiety and depression Code(s): F41.8 - OTHER SPECIFIED ANXIETY DISORDERS Status: Chronic (5) CKD (chronic kidney disease), stage III Code(s): N18.3 - CHRONIC KIDNEY DISEASE, STAGE 3 (MODERATE) Status: Chronic (6) Diabetic neuropathy Code(s): E11.40 - TYPE 2 DIABETES MELLITUS WITH DIABETIC NEUROPATHY, UNSP Status: Chronic Qualifiers: Diabetes mellitus type: type 2 Diabetes mellitus complication detail: diabetic polyneuropathy Qualified Code(s): E11.42 - Type 2 diabetes mellitus with diabetic polyneuropathy (7) Dyslipidemia Code(s): E78.5 - HYPERLIPIDEMIA, UNSPECIFIED Status: Chronic (8) GERD (gastroesophageal reflux disease) Code(s): K21.9 - GASTRO-ESOPHAGEAL REFLUX DISEASE WITHOUT ESOPHAGITIS Status: Chronic Qualifiers: Esophagitis presence: esophagitis presence not specified Qualified Code(s) : K21.9 - Gastro-esophageal reflux disease without esophagitis (9) Hypertension Code(s): I10 - ESSENTIAL (PRIMARY) HYPERTENSION Status: Chronic Qualifiers: Hypertension type: essential hypertension Qualified Code(s): I10 - Essential (primary) hypertension (10) Morbid obesity with BMI of 40.0-44.9, adult Code(s): E66.01 - MORBID (SEVERE) OBESITY DUE TO EXCESS CALORIES; Z68.41 - BODY MASS INDEX (BMI) 40.0-44.9, ADULT Status: Chronic (11) SONYA on CPAP Code(s): G47.33 - OBSTRUCTIVE SLEEP APNEA (ADULT) (PEDIATRIC); Z99.89 - DEPENDENCE ON OTHER ENABLING MACHINES AND DEVICES Status: Chronic (12) Fibromyalgia Status: Chronic (13) Rheumatoid arthritis Code(s): M06.9 - RHEUMATOID ARTHRITIS, UNSPECIFIED Status: Chronic (14) Celiac disease Code(s): K90.0 - CELIAC DISEASE Status: Chronic - Plan cont current plan of care, continue antibiotics * today plan for I & D * continue current IV antibiotics * home medication * diet gluten restricted * medication reviewed as below * symptomatic treatment * wound care * pain controlled. Review of Systems - Review of Systems Eyes: negative: Pain, Vision Change, Conjunctivae Inflammation, Eyelid Inflammation, Redness, Other ENT: negative: Ear Pain, Ear Discharge, Nose Pain, Nose Discharge, Nose Congestion, Mouth Pain, Mouth Swelling, Throat Pain, Throat Swelling, Other Respiratory: negative: Cough, Dry, Shortness of Breath, Hemoptysis, SOB with Excertion, Pleuritic Pain, Sputum, Wheezing Cardiovascular: negative: chest pain, palpitations, orthopnea, paroxysmal nocturnal dyspnea, edema, light headedness, other Gastrointestinal: negative: Nausea, Vomiting, Abdominal Pain, Diarrhea, Constipation, Melena, Hematochezia, Other Genitourinary: negative: Dysuria, Frequency, Incontinence, Hematuria, Retention , Other Musculoskeletal: negative: Neck Pain, Shoulder Pain, Arm Pain, Back Pain, Hand Pain, Leg Pain, Foot Pain, Other Skin: negative: Rash, Lesions, Luis, Bruising, Other - Medications/Allergies Allergies/Adverse Reactions: Allergies Allergy/AdvReac Type Severity Reaction Status Date / Time cefuroxime axetil Allergy Severe Anaphylaxis Verified 09/26/17 23:35 [From Ceftin] codeine Allergy Severe Hives Verified 09/26/17 23:35 duloxetine HCl Allergy Severe Hives Verified 09/26/17 23:35 [From Cymbalta] Penicillins Allergy Severe Anaphylaxis Verified 09/26/17 23:35 amoxicillin Allergy Verified 09/26/17 23:35 ampicillin Allergy Verified 09/26/17 23:35 Fish Containing Products Allergy Verified 09/26/17 23:35 gluten Allergy Verified 09/26/17 23:35 shellfish derived Allergy Verified 09/26/17 23:35 Sulfa (Sulfonamide Allergy Verified 09/26/17 23:35 Antibiotics) gabapentin AdvReac Severe Verified 02/03/18 22:50 Medications: Current Medications Acetaminophen (Tylenol) 650 mg PO Q4H PRN PRN Reason: Headache/Fever or Pain Al Hydroxide/Mg Hydroxide (Maalox) 30 ml PO Q6H PRN PRN Reason: Heartburn or Indigestion Alogliptin Benzoate (Alogliptin) 25 mg PO DAILY [facility] Alprazolam (Xanax) 1 mg PO TID PRN PRN Reason: Anxiety Calcium Carbonate (Tums) 1,000 mg PO Q4H PRN PRN Reason: Heartburn or Indigestion Cholecalciferol (Vitamin D3) 2,000 units PO HS [facility] Dextrose/Water (Dextrose 50%) 25 gm SLOW IVP PRN PRN PRN Reason: Hypoglycemia Diphenhydramine HCl (Benadryl) 50 mg PO Q6HR PRN PRN Reason: Nasal Congestion Docusate Sodium (Colace) 100 mg PO BID [facility] Last Admin: 02/04/18 19:57 Dose: Not Given Enoxaparin Sodium (Lovenox) 40 mg SC 2100 [facility] Last Admin: 02/04/18 19:57 Dose: Not Given Famotidine (Pepcid) 20 mg PO BID [facility] Last Admin: 02/04/18 19:58 Dose: 20 mg Ferrous Sulfate (Feosol) 325 mg PO BID [facility] Fluticasone Propionate (Flonase Nasal Gypsum) 0 gm NASAL BID [facility] Furosemide (Lasix) 40 mg PO DAILY [facility] Glipizide (Glucotrol Xl) 5 mg PO BID [facility] Last Admin: 02/04/18 19:58 Dose: 5 mg Glucagon (Glucagon) 1 mg IM PRN PRN PRN Reason: Hypoglycemia Hydralazine HCl (Apresoline) 10 mg SLOW IVP Q4H PRN PRN Reason: SBP Greater Than 180 Last Admin: 02/04/18 21:55 Dose: 10 mg Dextrose/Water (D5w) 1,000 mls @ 0 mls/hr IV .Q0M PRN; As Directed PRN Reason: Hypoglycemia Sodium Chloride (Normal Saline 0.9%) 1,000 mls @ 50 mls/hr IV .Q20H [facility] Last Admin: 02/04/18 21:13 Dose: 1,000 mls Vancomycin HCl 1 gm/ Device 200 mls @ 200 mls/hr IVPB 2200 [facility] Last Admin: 02/04/18 21:56 Dose: 200 mls Levofloxacin 250 mg/ Device 50 mls @ 100 mls/hr IVPB 2100 [facility] Last Admin: 02/04/18 19:59 Dose: 50 mls Insulin Human Regular (Humulin R) 0 units SC .MILD SLIDING SCALE PRN PRN Reason: Mild Correctional Scale Last Admin: 02/04/18 17:19 Dose: 2 unit Insulin Human Regular (Humulin R) 0 units SC .BEDTIME SLIDING SC PRN PRN Reason: Bedtime Correctional Scale Last Admin: 02/04/18 21:08 Dose: 3 unit Lisinopril (Zestril) 10 mg PO DAILY [facility] Last Admin: 02/04/18 08:27 Dose: 10 mg Loperamide HCl (Imodium) 2 mg PO PRN PRN PRN Reason: Diarrhea/Loose Stools Melatonin (Melatonin) 9 mg PO HSPRN PRN PRN Reason: Insomnia Last Admin: 02/04/18 21:55 Dose: 9 mg Metformin HCl (Glucophage) 1,000 mg PO BID-WM [facility] Last Admin: 02/04/18 17:19 Dose: 1,000 mg Mirtazapine (Remeron) 15 mg PO HS [facility] Last Admin: 02/04/18 19:59 Dose: 15 mg Miscellaneous Medication (Pharmacy To Dose) 1 each IVPB ASDIR [facility] Mometasone Furoate (Asmanex Hfa 100 Mcg) 1 puff INH BID-RT [facility] Last Admin: 02/05/18 05:47 Dose: 1 puff Nystatin (Mycostatin Cream) 0 gm TOP BIDPRN PRN PRN Reason: Rash/Topical Irritation Ondansetron HCl (Zofran Odt) 4 mg PO Q6H PRN PRN Reason: Nausea/Vomiting Ondansetron HCl (Zofran) 4 mg IVP Q6H PRN PRN Reason: Nausea/Vomiting Potassium Chloride (Klor-Con 10) 10 meq PO DAILY [facility] Pregabalin (Lyrica) 150 mg PO BID [facility] Rosuvastatin Calcium (Crestor) 40 mg PO [facility] Saccharomyces Boulardii (Florastor) 250 mg PO DAILY [facility] Last Admin: 02/04/18 08:25 Dose: 250 mg Senna (Senokot) 2 tab PO HSPRN PRN PRN Reason: Constipation Sertraline HCl (Zoloft) 250 mg PO HS [facility] Last Admin: 02/04/18 20:42 Dose: 250 mg Sodium Chloride (Flush - Normal Saline) 10 ml IVF Q12HR [facility] Last Admin: 02/04/18 19:58 Dose: 10 ml Sodium Chloride (Flush - Normal Saline) 10 ml IVF PRN PRN PRN Reason: Saline Flush Sumatriptan Succinate (Imitrex) 100 mg PO PRN PRN PRN Reason: Headache Tramadol HCl (Ultram) 50 mg PO Q4H PRN PRN Reason: Moderate Pain (4-6) Last Admin: 02/04/18 17:29 Dose: 50 mg Triamcinolone Acetonide (Kenalog 0.1% Cream) 0 gm TOP BID [facility]
[2018-02-05] MEDS ORDERED: Fentanyl 250 MCG/5 ML VIAL ONE (09:33)
[2018-02-05] MEDS ORDERED: Midazolam HCl 2 mg/2 ml Vial ONE (09:33)
[2018-02-05] MEDS ORDERED: Lidocaine 0.5%/Epinephrine 1:200,000 50 ml Vial ONE (11:08)
[2018-02-05] MEDS ORDERED: Promethazine HCl 25 MG/ML VIAL SLOW IVP PRN (11:42)
[2018-02-05] MEDS ORDERED: Ondansetron HCl/PF 4 MG/2 ML Vial IVP PRN (11:42)
[2018-02-05] MEDS ORDERED: Promethazine HCl 25 MG/ML VIAL IM PRN (11:42)
[2018-02-05] MEDS ORDERED: Acetaminophen 500 MG TAB PO PRN (12:53)
[2018-02-05] MEDS ORDERED: Ibuprofen 600 MG TAB PO PRN (12:53)
[2018-02-05] MEDS: Famotidine 20 MG TAB PO SCH ×2 (13:26→20:10)
[2018-02-05] MEDS: metFORMIN 500 MG TAB PO SCH ×2 (13:26→17:16)
[2018-02-05] MEDS: Furosemide 40 MG TAB PO SCH (13:27)
[2018-02-05] MEDS: Saccharomyces boulardii 250 MG CAP PO SCH (13:27)
[2018-02-05] MEDS: Alogliptin 25 MG TAB PO SCH (13:27)
[2018-02-05] MEDS: Lisinopril 10 MG TAB PO SCH (13:27)
[2018-02-05] MEDS: Docusate 100 MG CAP PO SCH ×2 (13:27→20:14)
[2018-02-05] MEDS: Ferrous Sulfate 325 MG TAB PO SCH ×2 (13:27→20:11)
[2018-02-05] MEDS: Pregabalin 75 MG CAP PO SCH ×2 (13:28→20:13)
[2018-02-05] MEDS: Potassium Chloride 10 MEQ TAB PO SCH (13:28)
[2018-02-05] MEDS: Fluticasone Propionate Nasal Spray 16 gm Bottle NASAL SCH ×2 (13:34→20:05)
[2018-02-05] MEDS: traMADol HCl 50 MG TAB PO PRN ×2 (13:34→20:11)
[2018-02-05] MEDS: Triamcinolone 0.1% Cream 15 GM TUBE TOP SCH ×2 (13:34→20:10)
--- NOTE | 2018-02-05 14:05 | OP ---
DATE OF PROCEDURE: 02/05/2018 PREOPERATIVE DIAGNOSES: Osteomyelitis, nonhealing wound, diabetic wound, neuropathic right lateral f oot, status post amputation of right fourth and fifth toes and metatarsals. POSTOPERATIVE DIAGNOSES: Osteomyelitis, nonhealing wound, diabetic wound, neuropathic right lateral foot, status post amputation of right fourth and fifth toes and metatarsals. PROCEDURES: Sharp excisional resectional debridement using a 10 blade scalpel, skin and subcutaneous tissue, connective tissue, and fourth and fifth metatarsals. Wound left open to heal by secondary i ntention. Wound Care team arrived to place a wound VAC. DESCRIPTION OF PROCEDURE: The patient was taken to the operating room where under TIVA and regional anesthesia, the right lower extremity was prepped with Betadine and draped in routine fashion. The n europathic ulcer surrounding skin, subcutaneous tissue, callus, connective tissue, and muscle were de brided sharply resectional using a 10 blade scalpel using cautery for hemostasis. The fourth and fif th metatarsal heads previously amputated were resected proximally to healthy bone. Wound irrigated. Wound VAC applied. Patient tolerated the procedure well.
--- NOTE | 2018-02-05 15:30 | CON ---
DATE OF CONSULTATION: 02/05/2018 REASON FOR CONSULTATION: Osteomyelitis, right foot. HISTORY OF PRESENT ILLNESS: A 52-year-old patient with a history of type 2 diabetes, hypertension, neuropathy, obesity and celiac disease, who has a chronic ulcer in the right foot with recent amputation of the right fifth toe in 09/2017. At that time, the operative report was reviewed and the patient had been admitted on 09/26/2017 with purulent drainage from right foot ulcer. The foot x-ray did not show any evidence of osseous involvement. Dr. Vaughan evaluated the patient and felt that there was extension of the neuropathic ulcer into the metatarsophalangeal joint of the fifth toe. The patient underwent amputation of the fifth toe on 09/28/2017 with the wound left open for healing by secondary intention with a negative pressure dressing. We do not have any samples submitted for culture at that time that are logged in the records. The patient was discharged on empiric ciprofloxacin and rifampin, which was given for 5 days. After that, the patient was followed by Dr. Ervin in the [facility]. The wound persisted open until the last visit at the [facility] on 02/01/2018. The review of the wound findings showed a granulation tissue present within the wound margins. There was some necrotic nonviable tissue present within the wound margins, which was debrided with an excisional full thickness using a curette, no purulent drainage was noted, and no cellulitis was appreciated. There is some callus desiccated tissue at the periphery of the wound noted. On 02/03/2018, the patient presented to the emergency room with new onset of fever and discomfort over the right foot ulcer/wound. The review of the wound showed some pinkish erythema surrounding the ulcerated area. The area of the wound measured about 2 cm, it was round shaped with hemorrhagic base with thick callus surrounding the superior aspect of the ulcer. A repeat MRI was done, which demonstrated postoperative changes involving the fifth ray signal alteration, but no abscess noted. The patient had a further surgical intervention by Dr. Vaughan, which included sharp excisional resection and debridement with a scalpel. Wound was left open to heal by secondary intention. Currently, Ms. Avery is awake. She denies any headaches. She has chronic visual impairment due to glaucoma. No sore throat, odynophagia, dysphagia, no vomiting, hematemesis, melena, hematochezia. No back pain, no joint symptoms outside the area of involvement. No neurological symptoms. PAST MEDICAL HISTORY: Type 2 diabetes, neuropathy, complications in the right foot noted above, hypertension, glaucoma, fibromyalgia, asthma, obesity, SONYA, seizure disorder, rheumatoid arthritis, psoriatic arthritis. It is listed systemic lupus erythematosus, but I do not see a good documentation of that diagnosis. Celiac disease and again I do not see a good documentation of that diagnosis. PAST SURGICAL HISTORY: Tonsillectomy, hysterectomy, tubal ligation, cholecystectomy, cervical cancer, right breast benign cyst, and fourth and fifth toe amputations in September. ALLERGIES: PENICILLIN with hives. Allergy to CEPHALOSPORINS. CURRENT MEDICATIONS: Tylenol, Maalox, alogliptin, Xanax, Tums, dextrose, Lovenox, glucagon, insulin, levofloxacin, Zestril, Glucophage, Zofran, potassium , and vancomycin. SOCIAL HISTORY: Former smoker, lives with daughters in [facility] in an apartment. FAMILY HISTORY: Diabetes type 2, coronary artery disease. PHYSICAL EXAMINATION: VITAL SIGNS: Temperature max 99.7, currently 97.4; blood pressure 130/80; pulse rate 78; respirations 18; O2 sat 95%. GENERAL: Appears no distress. The right foot dressing was not removed at this time. The patient has a peripheral IV access. No lymphadenopathy. HEENT: Ocular movements are conjugate. Oral cavity with numerous missing teeth. Remainder ones with quite a bit of decay. NECK: Supple, no jugular vein distention. LUNGS: With symmetric clear breath sounds. HEART: S1, S2, regular rate. No S3, S4. ABDOMEN: Soft, not distended or tender. No ascites. No bladder distention. EXTREMITIES: No other joint inflammatory process. Pulses are 2+ and bounding dorsalis pedis. NEUROLOGIC: The patient moves all extremities equally. Cognitive function appears to be intact. LABORATORY DATA: White cell count was 12,000 on admission, hemoglobin normal, platelets normal. Differential was normal. Now, the white cell count down to 9.5 and the sodium 135, creatinine 1.1. Normal liver profile, albumin 3.4. Microbiology, we have no samples from the foot submitted. IMAGING STUDIES: We have the MRI described, which is the first MRI that she has had. ASSESSMENT AND PLAN: 1. Diabetes type 2 with neuropathy. 2. Right foot ulcer, which appeared to communicate with the metatarsophalangeal joint in September when she had the initial metatarsal resection. The surgical note states that only the fifth metatarsal toe was resected; however, in the second surgical note that there is a mention of the fourth metatarsal been absent as well, although I do not think that the fourth toe was amputated. The patient now presents with worsening inflammatory changes and had repeat incision and drainage of the area. It is not clear why this site did not heal. The patient apparently was not putting pressure on it and was not using the foot for ambulation until the end of December when she starts to walk again after instructions. She has excellent vascular supply, so it is not clear to me why the area did not heal unless she developed osteomyelitis or progression of osteomyelitis in the absence of proper antimicrobial therapy. Again, the absence of samples for microbiology evaluation will hinder the proper disposition of the case and will mandate a broader antimicrobial therapy spectrum of coverage and a more aggressive administration route to avoid recrudescence of the process in view of this failure of the original treatment. We will place a PICC line and treat her with broad spectrum coverage for a protracted period of time. Discussed potential adverse reactions from the treatment including possible drug related hypersensitivity reactions, colitis and a PICC line associated complications. The patient understood and accepted management recommendations. PEREZ
[2018-02-05] MEDS ORDERED: Propofol 200 MG/20 ML VIAL ONE (17:09)
[2018-02-05] MEDS: Aztreonam 2 GM in Sodium Chloride 0.9% 100 ML IVPB SCH (17:16)
[2018-02-05] MEDS: Insulin Regular 300 UNITS/3 ML VIAL SC PRN (17:22)
[2018-02-05] MEDS: Mirtazapine 15 MG TAB PO SCH (20:11)
[2018-02-05] MEDS: Rosuvastatin 20 MG TAB PO SCH (20:11)
[2018-02-05] MEDS: Enoxaparin Sodium 40 MG/0.4 ML SYRINGE SC SCH (20:14)
[2018-02-05] MEDS ORDERED: Non-Formulary Item 1 EACH (Cholecalciferol (Vitamin D3) [Vitamin D3] 2,000 UNIT) PO SCH (21:00)
[2018-02-05 21:22] LABS: Vancomycin, Trough 9.1 ug/mL
[2018-02-05] MEDS: Vancomycin HCl 1.5 GM in Sodium Chloride 0.9% 250 ML 300 ML IVPB SCH (22:10)
[2018-02-06] MEDS: Aztreonam 2 GM in Sodium Chloride 0.9% 100 ML IVPB SCH ×4 (01:19→23:31)
[2018-02-06] MEDS: Sodium Chloride 0.9% 1,000 ML IV SCH ×2 (03:52→19:53)
[2018-02-06] MEDS: Mometasone 100 MCG HFA INHALER INH SCH ×2 (07:19→19:51)
[2018-02-06] MEDS: Saccharomyces boulardii 250 MG CAP PO SCH (09:22)
[2018-02-06] MEDS: metFORMIN 500 MG TAB PO SCH ×2 (09:23→17:40)
[2018-02-06] MEDS: Famotidine 20 MG TAB PO SCH ×2 (09:23→20:51)
[2018-02-06] MEDS: Ferrous Sulfate 325 MG TAB PO SCH ×2 (09:23→20:59)
[2018-02-06] MEDS: Docusate 100 MG CAP PO SCH ×2 (09:23→20:52)
[2018-02-06] MEDS: Alogliptin 25 MG TAB PO SCH (09:23)
[2018-02-06] MEDS: Potassium Chloride 10 MEQ TAB PO SCH (09:24)
[2018-02-06] MEDS: Lisinopril 10 MG TAB PO SCH (09:24)
[2018-02-06] MEDS: Pregabalin 75 MG CAP PO SCH ×2 (09:24→20:59)
[2018-02-06] MEDS: Furosemide 40 MG TAB PO SCH (09:24)
[2018-02-06] MEDS: Fluticasone Propionate Nasal Spray 16 gm Bottle NASAL SCH ×2 (09:25→20:52)
[2018-02-06] MEDS: Triamcinolone 0.1% Cream 15 GM TUBE TOP SCH ×2 (09:26→21:00)
[2018-02-06] MEDS: traMADol HCl 50 MG TAB PO PRN (09:31)
--- NOTE | 2018-02-06 10:02 | PDOC.PN ---
- Subjective Encounter Start Date: 02/06/18 Encounter Start Time: 09:10 Patient seen and examined. No new complaints. No overnight events she reports that tramadol does not control pain and she is not allergic to norco - Objective Resuscitation Status: Resuscitation Status FULL:Full Resuscitation MAR Reviewed: Yes Vital Signs & Weight: Vital Signs (12 hours) Temp Pulse Resp BP BP Pulse Ox 02/06/18 09:24 161/79 H 02/06/18 08:46 98.1 F 73 20 169/79 H 100 02/06/18 04:13 97.5 F L 75 16 147/75 H 95 02/06/18 02:13 98.6 F 73 18 157/60 H 95 Weight Admit Weight 229 lb 3.2 oz Weight 229 lb 3.2 oz I&O: 02/05/18 02/06/18 02/07/18 06:59 06:59 06:59 Intake Total 1001 Balance 1001 Result Diagrams: 02/05/18 04:20 02/05/18 04:20 Additional Labs: Accuchecks 02/06/18 02/05/18 02/05/18 05:19 21:24 20:10 POC Glucose 176 H 112 H 136 H 02/05/18 02/05/18 16:27 13:24 POC Glucose 192 H 192 H Phys Exam - Physical Examination Constitutional: NAD HEENT: PERRLA, moist MMs, sclera anicteric Neck: no JVD, supple Respiratory: no wheezing, no rales, no rhonchi Cardiovascular: RRR, no significant murmur, no rub Gastrointestinal: soft, non-tender, no distention, positive bowel sounds Musculoskeletal: no edema, pulses present wound vac in place Neurological: non-focal, normal sensation, moves all 4 limbs Psychiatric: normal affect, A&O x 3 Skin: no rash, normal turgor Dx/Plan (1) Acute osteomyelitis of metatarsal bone of right foot Code(s): M86.171 - OTHER ACUTE OSTEOMYELITIS, RIGHT ANKLE AND FOOT Status: Acute (2) Diabetic foot infection Code(s): E11.69 - TYPE 2 DIABETES MELLITUS WITH OTHER SPECIFIED COMPLICATION; L08.9 - LOCAL INFECTION OF THE SKIN AND SUBCUTANEOUS TISSUE, UNSP Status: Acute (3) Diabetic foot ulcer Code(s): E11.621 - TYPE 2 DIABETES MELLITUS WITH FOOT ULCER; L97.509 - NON- PRESSURE CHRONIC ULCER OTH PRT UNSP FOOT W UNSP SEVERITY Status: Acute Qualifiers: Diabetic foot ulcer location: toe Diabetes mellitus type: type 2 Laterality: right (4) Anxiety and depression Code(s): F41.8 - OTHER SPECIFIED ANXIETY DISORDERS Status: Chronic (5) CKD (chronic kidney disease), stage III Code(s): N18.3 - CHRONIC KIDNEY DISEASE, STAGE 3 (MODERATE) Status: Chronic (6) Diabetic neuropathy Code(s): E11.40 - TYPE 2 DIABETES MELLITUS WITH DIABETIC NEUROPATHY, UNSP Status: Chronic Qualifiers: Diabetes mellitus type: type 2 Diabetes mellitus complication detail: diabetic polyneuropathy Qualified Code(s): E11.42 - Type 2 diabetes mellitus with diabetic polyneuropathy (7) Dyslipidemia Code(s): E78.5 - HYPERLIPIDEMIA, UNSPECIFIED Status: Chronic (8) GERD (gastroesophageal reflux disease) Code(s): K21.9 - GASTRO-ESOPHAGEAL REFLUX DISEASE WITHOUT ESOPHAGITIS Status: Chronic Qualifiers: Esophagitis presence: esophagitis presence not specified Qualified Code(s) : K21.9 - Gastro-esophageal reflux disease without esophagitis (9) Hypertension Code(s): I10 - ESSENTIAL (PRIMARY) HYPERTENSION Status: Chronic Qualifiers: Hypertension type: essential hypertension Qualified Code(s): I10 - Essential (primary) hypertension (10) Morbid obesity with BMI of 40.0-44.9, adult Code(s): E66.01 - MORBID (SEVERE) OBESITY DUE TO EXCESS CALORIES; Z68.41 - BODY MASS INDEX (BMI) 40.0-44.9, ADULT Status: Chronic (11) SONYA on CPAP Code(s): G47.33 - OBSTRUCTIVE SLEEP APNEA (ADULT) (PEDIATRIC); Z99.89 - DEPENDENCE ON OTHER ENABLING MACHINES AND DEVICES Status: Chronic (12) Fibromyalgia Status: Chronic (13) Rheumatoid arthritis Code(s): M06.9 - RHEUMATOID ARTHRITIS, UNSPECIFIED Status: Chronic - Plan cont current plan of care, 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 Review of Systems - Review of Systems Constitutional: negative: fever, chills, sweats, weakness, malaise, other ENT: negative: Ear Pain, Ear Discharge, Nose Pain, Nose Discharge, Nose Congestion, Mouth Pain, Mouth Swelling, Throat Pain, Throat Swelling, Other Respiratory: negative: Cough, Dry, Shortness of Breath, Hemoptysis, SOB with Excertion, Pleuritic Pain, Sputum, Wheezing Cardiovascular: negative: chest pain, palpitations, orthopnea, paroxysmal nocturnal dyspnea, edema, light headedness, other Gastrointestinal: negative: Nausea, Vomiting, Abdominal Pain, Diarrhea, Constipation, Melena, Hematochezia, Other Genitourinary: negative: Dysuria, Frequency, Incontinence, Hematuria, Retention , Other Musculoskeletal: Foot Pain. negative: Neck Pain, Shoulder Pain, Arm Pain, Back Pain, Hand Pain, Leg Pain, Other - Medications/Allergies Allergies/Adverse Reactions: Allergies Allergy/AdvReac Type Severity Reaction Status Date / Time cefuroxime axetil Allergy Severe Anaphylaxis Verified 09/26/17 23:35 [From Ceftin] codeine Allergy Severe Hives Verified 09/26/17 23:35 duloxetine HCl Allergy Severe Hives Verified 09/26/17 23:35 [From Cymbalta] Penicillins Allergy Severe Anaphylaxis Verified 09/26/17 23:35 amoxicillin Allergy Verified 09/26/17 23:35 ampicillin Allergy Verified 09/26/17 23:35 Fish Containing Products Allergy Verified 09/26/17 23:35 gluten Allergy Verified 09/26/17 23:35 shellfish derived Allergy Verified 09/26/17 23:35 Sulfa (Sulfonamide Allergy Verified 09/26/17 23:35 Antibiotics) gabapentin AdvReac Severe Verified 02/03/18 22:50 Medications: Current Medications Acetaminophen (Tylenol) 650 mg PO Q4H PRN PRN Reason: Headache/Fever or Pain Acetaminophen (Tylenol) 1,000 mg PO Q6H PRN PRN Reason: Moderate to Severe Pain (6-10) Hydrocodone Bitart/Acetaminophen ([place] 5/325) 1 tab PO Q4H PRN PRN Reason: Pain Al Hydroxide/Mg Hydroxide (Maalox) 30 ml PO Q6H PRN PRN Reason: Heartburn or Indigestion Alogliptin Benzoate (Alogliptin) 25 mg PO DAILY [facility] Last Admin: 02/06/18 09:23 Dose: 25 mg Alprazolam (Xanax) 1 mg PO TID PRN PRN Reason: Anxiety Last Admin: 02/05/18 20:11 Dose: 1 mg Calcium Carbonate (Tums) 1,000 mg PO Q4H PRN PRN Reason: Heartburn or Indigestion Cholecalciferol (Vitamin D3) 2,000 units PO HS [facility] Last Admin: 02/05/18 20:11 Dose: 2,000 units Dextrose/Water (Dextrose 50%) 25 gm SLOW IVP PRN PRN PRN Reason: Hypoglycemia Diphenhydramine HCl (Benadryl) 50 mg PO Q6HR PRN PRN Reason: Nasal Congestion Docusate Sodium (Colace) 100 mg PO BID [facility] Last Admin: 02/06/18 09:23 Dose: Not Given Enoxaparin Sodium (Lovenox) 40 mg SC 2100 [facility] Last Admin: 02/05/18 20:14 Dose: 40 mg Famotidine (Pepcid) 20 mg PO BID [facility] Last Admin: 02/06/18 09:23 Dose: 20 mg Ferrous Sulfate (Feosol) 325 mg PO BID [facility] Last Admin: 02/06/18 09:23 Dose: 325 mg Fluticasone Propionate (Flonase Nasal [place]) 0 gm NASAL BID [facility] Last Admin: 02/06/18 09:25 Dose: 1 spr Furosemide (Lasix) 40 mg PO DAILY [facility] Last Admin: 02/06/18 09:24 Dose: 40 mg Glipizide (Glucotrol Xl) 5 mg PO BID[facility] Last Admin: 02/06/18 09:23 Dose: 5 mg Glucagon (Glucagon) 1 mg IM PRN PRN PRN Reason: Hypoglycemia Hydralazine HCl (Apresoline) 10 mg SLOW IVP Q4H PRN PRN Reason: SBP Greater Than 180 Last Admin: 02/04/18 21:55 Dose: 10 mg Dextrose/Water (D5w) 1,000 mls @ 0 mls/hr IV .Q0M PRN; As Directed PRN Reason: Hypoglycemia Sodium Chloride (Normal Saline 0.9%) 1,000 mls @ 50 mls/hr IV .Q20H [facility] Last Admin: 02/06/18 03:52 Dose: 1,000 mls Aztreonam 2 gm/ Sodium (Chloride) 100 mls @ 100 mls/hr IVPB 0800,1600,2359 [facility] Last Admin: 02/06/18 09:20 Dose: 100 mls Vancomycin HCl 1.5 gm/ Sodium (Chloride) 300 mls @ 150 mls/hr IVPB 2200 [facility] Last Admin: 02/05/18 22:10 Dose: 300 mls Ibuprofen (Motrin) 600 mg PO Q6H PRN PRN Reason: Pain Insulin Human Regular (Humulin R) 0 units SC .MILD SLIDING SCALE PRN PRN Reason: Mild Correctional Scale Last Admin: 02/05/18 17:22 Dose: 2 unit Insulin Human Regular (Humulin R) 0 units SC .BEDTIME SLIDING SC PRN PRN Reason: Bedtime Correctional Scale Last Admin: 02/04/18 21:08 Dose: 3 unit Lisinopril (Zestril) 10 mg PO DAILY [facility] Last Admin: 02/06/18 09:24 Dose: 10 mg Loperamide HCl (Imodium) 2 mg PO PRN PRN PRN Reason: Diarrhea/Loose Stools Last Admin: 02/05/18 20:06 Dose: 2 mg Melatonin (Melatonin) 9 mg PO HSPRN PRN PRN Reason: Insomnia Last Admin: 02/04/18 21:55 Dose: 9 mg Metformin HCl (Glucophage) 1,000 mg PO BID-WM [facility] Last Admin: 02/06/18 09:23 Dose: 1,000 mg Mirtazapine (Remeron) 15 mg PO [facility] Last Admin: 02/05/18 20:11 Dose: 15 mg Miscellaneous Medication (Pharmacy To Dose) 1 each IVPB ASDIR [facility] Mometasone Furoate (Asmanex Hfa 100 Mcg) 1 puff INH BID-RT [facility] Last Admin: 02/06/18 07:19 Dose: 1 puff Nystatin (Mycostatin Cream) 0 gm TOP BIDPRN PRN PRN Reason: Rash/Topical Irritation Ondansetron HCl (Zofran Odt) 4 mg PO Q6H PRN PRN Reason: Nausea/Vomiting Ondansetron HCl (Zofran) 4 mg IVP Q6H PRN PRN Reason: Nausea/Vomiting Potassium Chloride (Klor-Con 10) 10 meq PO DAILY [facility] Last Admin: 02/06/18 09:24 Dose: 10 meq Pregabalin (Lyrica) 150 mg PO BID [facility] Last Admin: 02/06/18 09:24 Dose: 150 mg Rosuvastatin Calcium (Crestor) 40 mg PO [facility] Last Admin: 02/05/18 20:11 Dose: 40 mg Saccharomyces Boulardii (Florastor) 250 mg PO DAILY [facility] Last Admin: 02/06/18 09:22 Dose: 250 mg Senna (Senokot) 2 tab PO HSPRN PRN PRN Reason: Constipation Sertraline HCl (Zoloft) 250 mg PO HS [facility] Last Admin: 02/05/18 20:14 Dose: 250 mg Sodium Chloride (Flush - Normal Saline) 10 ml IVF Q12HR [facility] Last Admin: 02/06/18 09:25 Dose: Not Given Sodium Chloride (Flush - Normal Saline) 10 ml IVF PRN PRN PRN Reason: Saline Flush Sumatriptan Succinate (Imitrex) 100 mg PO PRN PRN PRN Reason: Headache Tramadol HCl (Ultram) 50 mg PO Q4H PRN PRN Reason: Moderate Pain (4-6) Last Admin: 02/06/18 09:31 Dose: 50 mg Triamcinolone Acetonide (Kenalog 0.1% Cream) 0 gm TOP BID [facility] Last Admin: 02/06/18 09:26 Dose: 1 applic
--- NOTE | 2018-02-06 12:18 | SPC ---
SONOGRAPHIC GUIDED LEFT UPPER EXTREMITY PICC PLACEMENT: HISTORY: Osteomyelitis. FINDINGS: After explaining the procedure and answering all questions, the left upper extremity was prepped and draped in the usual sterile fashion. Sterile technique, buffered local anesthesia, sonographic benito nce, and a 22 gauge needle were used to carefully access the left cephalic vein. Standard technique was then used to place the tip of a 5 [place] single-lumen PICC, so that the tip lies at the level of the right atrium. The catheter was flushed and secured externally. The patient tolerated the proced ure well and was returned in unchanged condition. Fluoroscopy time equals zero seconds. IMPRESSION: Technically successful left upper extremity peripherally inserted central catheter placement. The ca theter is now ready for use. POS: CECILIA
[2018-02-06] MEDS: Insulin Regular 300 UNITS/3 ML VIAL SC PRN (12:34)
[2018-02-06] MEDS: Rosuvastatin 20 MG TAB PO SCH (20:50)
[2018-02-06] MEDS: Enoxaparin Sodium 40 MG/0.4 ML SYRINGE SC SCH (20:50)
--- NOTE | 2018-02-06 20:50 | PRG ---
DATE OF SERVICE: 02/03/2018 Tony Avery is doing well today. Her wound VAC is in place. Cultures bacillus species, bacteremia. Wound VAC in place on her foot. Currently, the patient is doing well. Her metatarsal had been rese cted. No PICC line is going to be placed and should be on outpatient antibiotics. An outpatient wou nd care has been arranged, twice a week or 2-3 times a week. Antibiotics per Dr. Mendoza. We will see her in the office as an outpatient. Her wound care locally when she comes for wound care.
[2018-02-06] MEDS: Mirtazapine 15 MG TAB PO SCH (20:51)
[2018-02-06] MEDS: HYDROcodone/Acetaminophen 5/325 mg Tablet PO PRN (20:57)
[2018-02-06] MEDS: Vancomycin HCl 1.5 GM in Sodium Chloride 0.9% 250 ML 300 ML IVPB SCH (21:00)
[2018-02-07] MEDS: Mometasone 100 MCG HFA INHALER INH SCH ×2 (06:02→19:11)
[2018-02-07] MEDS: Aztreonam 2 GM in Sodium Chloride 0.9% 100 ML IVPB SCH ×2 (08:29→15:11)
[2018-02-07] MEDS: Ferrous Sulfate 325 MG TAB PO SCH ×2 (08:31→21:10)
[2018-02-07] MEDS: Furosemide 40 MG TAB PO SCH (08:31)
[2018-02-07] MEDS: Potassium Chloride 10 MEQ TAB PO SCH (08:31)
[2018-02-07] MEDS: Alogliptin 25 MG TAB PO SCH (08:32)
[2018-02-07] MEDS: Lisinopril 10 MG TAB PO SCH (08:32)
[2018-02-07] MEDS: Saccharomyces boulardii 250 MG CAP PO SCH ×2 (08:32→21:08)
[2018-02-07] MEDS: metFORMIN 500 MG TAB PO SCH ×2 (08:32→18:03)
[2018-02-07] MEDS: Famotidine 20 MG TAB PO SCH ×2 (08:32→21:10)
[2018-02-07] MEDS: Docusate 100 MG CAP PO SCH ×2 (08:32→21:10)
[2018-02-07] MEDS: Pregabalin 75 MG CAP PO SCH ×2 (08:34→21:12)
[2018-02-07] MEDS: Fluticasone Propionate Nasal Spray 16 gm Bottle NASAL SCH ×2 (08:38→21:12)
[2018-02-07] MEDS: Triamcinolone 0.1% Cream 15 GM TUBE TOP SCH ×2 (08:39→21:37)
[2018-02-07] MEDS ORDERED: Pregabalin 75 MG CAP PO SCH (09:00)
--- NOTE | 2018-02-07 09:29 | PDOC.PN ---
- Subjective Encounter Start Date: 02/07/18 Encounter Start Time: 09:05 Patient seen and examined. No new complaints. No overnight events - Objective Resuscitation Status: Resuscitation Status FULL:Full Resuscitation MAR Reviewed: Yes Vital Signs & Weight: Vital Signs (12 hours) Temp Pulse Resp BP BP Pulse Ox 02/07/18 08:32 132/87 02/07/18 08:00 97.4 F L 82 20 132/87 92 L 02/07/18 05:06 97.6 F 02/07/18 00:51 98.7 F Weight Admit Weight 229 lb 3.2 oz Weight 229 lb 3.2 oz I&O: 02/06/18 02/07/18 02/08/18 06:59 06:59 06:59 Intake Total 1001 Balance 1001 Result Diagrams: 02/05/18 04:20 02/05/18 04:20 Additional Labs: Accuchecks 02/07/18 02/06/18 02/06/18 05:21 20:23 16:42 POC Glucose 191 H 124 H 102 02/06/18 10:59 POC Glucose 179 H Phys Exam - Physical Examination Constitutional: NAD HEENT: PERRLA, moist MMs, sclera anicteric Neck: no JVD, supple Respiratory: no wheezing, no rales, no rhonchi Cardiovascular: RRR, no significant murmur, no rub Gastrointestinal: soft, non-tender, no distention, positive bowel sounds morbid obesity+ Musculoskeletal: no edema, pulses present wound with wound vac Neurological: non-focal, normal sensation Psychiatric: normal affect, A&O x 3 Skin: no rash, normal turgor Dx/Plan (1) Acute osteomyelitis of metatarsal bone of right foot Code(s): M86.171 - OTHER ACUTE OSTEOMYELITIS, RIGHT ANKLE AND FOOT Status: Acute (2) Diabetic foot infection Code(s): E11.69 - TYPE 2 DIABETES MELLITUS WITH OTHER SPECIFIED COMPLICATION; L08.9 - LOCAL INFECTION OF THE SKIN AND SUBCUTANEOUS TISSUE, UNSP Status: Acute (3) Diabetic foot ulcer Code(s): E11.621 - TYPE 2 DIABETES MELLITUS WITH FOOT ULCER; L97.509 - NON- PRESSURE CHRONIC ULCER OTH PRT UNSP FOOT W UNSP SEVERITY Status: Acute Qualifiers: Diabetic foot ulcer location: toe Diabetes mellitus type: type 2 Laterality: right (4) Anxiety and depression Code(s): F41.8 - OTHER SPECIFIED ANXIETY DISORDERS Status: Chronic (5) CKD (chronic kidney disease), stage III Code(s): N18.3 - CHRONIC KIDNEY DISEASE, STAGE 3 (MODERATE) Status: Chronic (6) Diabetic neuropathy Code(s): E11.40 - TYPE 2 DIABETES MELLITUS WITH DIABETIC NEUROPATHY, UNSP Status: Chronic Qualifiers: Diabetes mellitus type: type 2 Diabetes mellitus complication detail: diabetic polyneuropathy Qualified Code(s): E11.42 - Type 2 diabetes mellitus with diabetic polyneuropathy (7) Dyslipidemia Code(s): E78.5 - HYPERLIPIDEMIA, UNSPECIFIED Status: Chronic (8) GERD (gastroesophageal reflux disease) Code(s): K21.9 - GASTRO-ESOPHAGEAL REFLUX DISEASE WITHOUT ESOPHAGITIS Status: Chronic Qualifiers: Esophagitis presence: esophagitis presence not specified Qualified Code(s) : K21.9 - Gastro-esophageal reflux disease without esophagitis (9) Hypertension Code(s): I10 - ESSENTIAL (PRIMARY) HYPERTENSION Status: Chronic Qualifiers: Hypertension type: essential hypertension Qualified Code(s): I10 - Essential (primary) hypertension (10) Morbid obesity with BMI of 40.0-44.9, adult Code(s): E66.01 - MORBID (SEVERE) OBESITY DUE TO EXCESS CALORIES; Z68.41 - BODY MASS INDEX (BMI) 40.0-44.9, ADULT Status: Chronic (11) SONYA on CPAP Code(s): G47.33 - OBSTRUCTIVE SLEEP APNEA (ADULT) (PEDIATRIC); Z99.89 - DEPENDENCE ON OTHER ENABLING MACHINES AND DEVICES Status: Chronic (12) Fibromyalgia Status: Chronic (13) Rheumatoid arthritis Code(s): M06.9 - RHEUMATOID ARTHRITIS, UNSPECIFIED Status: Chronic - Plan cont current plan of care, continue antibiotics, social work program coordinator * contineu aztreonam and vancomycin * add flagyl for c-diff * add florastor * social work to arrange iv antibiotics on discharge * iv antibiotics on discharge as per ID * allergy consulted for multiple drug allergy * medication reviewed as below * symptomatic treatment. * DC IVF Review of Systems - Review of Systems Constitutional: negative: fever, chills, sweats, weakness, malaise, other Eyes: negative: Pain, Vision Change, Conjunctivae Inflammation, Eyelid Inflammation, Redness, Other ENT: negative: Ear Pain, Ear Discharge, Nose Pain, Nose Discharge, Nose Congestion, Mouth Pain, Mouth Swelling, Throat Pain, Throat Swelling, Other Respiratory: negative: Cough, Dry, Shortness of Breath, Hemoptysis, SOB with Excertion, Pleuritic Pain, Sputum, Wheezing Cardiovascular: negative: chest pain, palpitations, orthopnea, paroxysmal nocturnal dyspnea, edema, light headedness, other Gastrointestinal: negative: Nausea, Vomiting, Abdominal Pain, Diarrhea, Constipation, Melena, Hematochezia, Other Genitourinary: negative: Dysuria, Frequency, Incontinence, Hematuria, Retention , Other Musculoskeletal: Leg Pain, Foot Pain. negative: Neck Pain, Shoulder Pain, Arm Pain, Back Pain, Hand Pain, Other - Medications/Allergies Allergies/Adverse Reactions: Allergies Allergy/AdvReac Type Severity Reaction Status Date / Time cefuroxime axetil Allergy Severe Anaphylaxis Verified 09/26/17 23:35 [From Ceftin] codeine Allergy Severe Hives Verified 09/26/17 23:35 duloxetine HCl Allergy Severe Hives Verified 09/26/17 23:35 [From Cymbalta] Penicillins Allergy Severe Anaphylaxis Verified 09/26/17 23:35 amoxicillin Allergy Verified 09/26/17 23:35 ampicillin Allergy Verified 09/26/17 23:35 Fish Containing Products Allergy Verified 09/26/17 23:35 shellfish derived Allergy Verified 09/26/17 23:35 Sulfa (Sulfonamide Allergy Verified 09/26/17 23:35 Antibiotics) gabapentin AdvReac Severe Verified 02/03/18 22:50 Medications: Current Medications Acetaminophen (Tylenol) 650 mg PO Q4H PRN PRN Reason: Headache/Fever or Pain Last Admin: 02/06/18 20:57 Dose: 650 mg Acetaminophen (Tylenol) 1,000 mg PO Q6H PRN PRN Reason: Moderate to Severe Pain (6-10) Hydrocodone Bitart/Acetaminophen ([place] 5/325) 1 tab PO Q4H PRN PRN Reason: Pain Last Admin: 02/06/18 20:57 Dose: 1 tab Al Hydroxide/Mg Hydroxide (Maalox) 30 ml PO Q6H PRN PRN Reason: Heartburn or Indigestion Alogliptin Benzoate (Alogliptin) 25 mg PO DAILY [facility] Last Admin: 02/07/18 08:32 Dose: 25 mg Alprazolam (Xanax) 1 mg PO TID PRN PRN Reason: Anxiety Last Admin: 02/05/18 20:11 Dose: 1 mg Calcium Carbonate (Tums) 1,000 mg PO Q4H PRN PRN Reason: Heartburn or Indigestion Cholecalciferol (Vitamin D3) 2,000 units PO HS [facility] Last Admin: 02/06/18 20:51 Dose: 2,000 units Dextrose/Water (Dextrose 50%) 25 gm SLOW IVP PRN PRN PRN Reason: Hypoglycemia Diphenhydramine HCl (Benadryl) 50 mg PO Q6HR PRN PRN Reason: Nasal Congestion Docusate Sodium (Colace) 100 mg PO BID [facility] Last Admin: 02/07/18 08:32 Dose: Not Given Enoxaparin Sodium (Lovenox) 40 mg SC 2100 [facility] Last Admin: 02/06/18 20:50 Dose: 40 mg Famotidine (Pepcid) 20 mg PO BID [facility] Last Admin: 02/07/18 08:32 Dose: 20 mg Ferrous Sulfate (Feosol) 325 mg PO BID [facility] Last Admin: 02/07/18 08:31 Dose: 325 mg Fluticasone Propionate (Flonase Nasal [place]) 0 gm NASAL BID [facility] Last Admin: 02/07/18 08:38 Dose: 1 spr Furosemide (Lasix) 40 mg PO DAILY [facility] Last Admin: 02/07/18 08:31 Dose: 40 mg Glipizide (Glucotrol Xl) 5 mg PO BID-[facility] Last Admin: 02/07/18 08:38 Dose: 5 mg Glucagon (Glucagon) 1 mg IM PRN PRN PRN Reason: Hypoglycemia Hydralazine HCl (Apresoline) 10 mg SLOW IVP Q4H PRN PRN Reason: SBP Greater Than 180 Last Admin: 02/04/18 21:55 Dose: 10 mg Dextrose/Water (D5w) 1,000 mls @ 0 mls/hr IV .Q0M PRN; As Directed PRN Reason: Hypoglycemia Sodium Chloride (Normal Saline 0.9%) 1,000 mls @ 50 mls/hr IV .Q20H [facility] Last Admin: 02/06/18 19:53 Dose: Not Given Aztreonam 2 gm/ Sodium (Chloride) 100 mls @ 100 mls/hr IVPB 0800,1600,2359 [facility] Last Admin: 02/07/18 08:29 Dose: 100 mls Vancomycin HCl 1.5 gm/ Sodium (Chloride) 300 mls @ 150 mls/hr IVPB 2200 [facility] Last Admin: 02/06/18 21:00 Dose: 300 mls Ibuprofen (Motrin) 600 mg PO Q6H PRN PRN Reason: Pain Insulin Human Regular (Humulin R) 0 units SC .MILD SLIDING SCALE PRN PRN Reason: Mild Correctional Scale Last Admin: 02/06/18 12:34 Dose: 2 unit Insulin Human Regular (Humulin R) 0 units SC .BEDTIME SLIDING SC PRN PRN Reason: Bedtime Correctional Scale Last Admin: 02/04/18 21:08 Dose: 3 unit Lisinopril (Zestril) 10 mg PO DAILY [facility] Last Admin: 02/07/18 08:32 Dose: 10 mg Loperamide HCl (Imodium) 2 mg PO PRN PRN PRN Reason: Diarrhea/Loose Stools Last Admin: 02/05/18 20:06 Dose: 2 mg Melatonin (Melatonin) 9 mg PO HSPRN PRN PRN Reason: Insomnia Last Admin: 02/04/18 21:55 Dose: 9 mg Metformin HCl (Glucophage) 1,000 mg PO BID-WM [facility] Last Admin: 02/07/18 08:32 Dose: 1,000 mg Mirtazapine (Remeron) 15 mg PO HS [facility] Last Admin: 02/06/18 20:51 Dose: 15 mg Miscellaneous Medication (Pharmacy To Dose) 1 each IVPB ASDIR [facility] Mometasone Furoate (Asmanex Hfa 100 Mcg) 1 puff INH BID-RT [facility] Last Admin: 02/07/18 06:02 Dose: 1 puff Nystatin (Mycostatin Cream) 0 gm TOP BIDPRN PRN PRN Reason: Rash/Topical Irritation Ondansetron HCl (Zofran Odt) 4 mg PO Q6H PRN PRN Reason: Nausea/Vomiting Ondansetron HCl (Zofran) 4 mg IVP Q6H PRN PRN Reason: Nausea/Vomiting Potassium Chloride (Klor-Con 10) 10 meq PO DAILY [facility] Last Admin: 02/07/18 08:31 Dose: 10 meq Pregabalin (Lyrica) 150 mg PO BID [facility] Last Admin: 02/07/18 08:34 Dose: Not Given Rosuvastatin Calcium (Crestor) 40 mg PO HS [facility] Last Admin: 02/06/18 20:50 Dose: 40 mg Saccharomyces Boulardii (Florastor) 250 mg PO DAILY [facility] Last Admin: 02/07/18 08:32 Dose: 250 mg Senna (Senokot) 2 tab PO HSPRN PRN PRN Reason: Constipation Sertraline HCl (Zoloft) 250 mg PO HS [facility] Last Admin: 02/06/18 20:51 Dose: 250 mg Sodium Chloride (Flush - Normal Saline) 10 ml IVF Q12HR [facility] Last Admin: 02/07/18 08:39 Dose: Not Given Sodium Chloride (Flush - Normal Saline) 10 ml IVF PRN PRN PRN Reason: Saline Flush Sumatriptan Succinate (Imitrex) 100 mg PO PRN PRN PRN Reason: Headache Tramadol HCl (Ultram) 50 mg PO Q4H PRN PRN Reason: Moderate Pain (4-6) Last Admin: 02/06/18 09:31 Dose: 50 mg Triamcinolone Acetonide (Kenalog 0.1% Cream) 0 gm TOP BID [facility] Last Admin: 02/07/18 08:39 Dose: 1 applic
[2018-02-07] MEDS: Insulin Regular 300 UNITS/3 ML VIAL SC PRN (12:21)
[2018-02-07] MEDS: metroNIDAZOLE 500 MG TAB PO SCH ×2 (15:09→21:10)
[2018-02-07] MEDS: HYDROcodone/Acetaminophen 5/325 mg Tablet PO PRN ×2 (18:12→22:32)
--- NOTE | 2018-02-07 20:15 | PRG ---
DATE OF SERVICE: 02/07/2018 SUBJECTIVE: Feeling well, had a PICC line inserted. No respiratory symptoms. Minimal pain in the f oot. No diarrhea. Subsided. OBJECTIVE: VITAL SIGNS: Normal. LUNGS: Clear. HEART: S1, S2, regular rate. ABDOMEN: Soft. EXTREMITIES: Foot dressing not removed. C. difficile in stool was positive. This was a PCR. CURRENT MEDICATIONS: Aztreonam and she is on Flagyl p.o. and vancomycin. Could not obtain any senior environmental scientist to come to the allergy testing for this patient's. We will go ahead a nd try a challenge of meropenem as though it is really simplified the treatment in the outpatient set ting.
[2018-02-07] MEDS: Rosuvastatin 20 MG TAB PO SCH (21:07)
[2018-02-07] MEDS: Meropenem 1 GM in Sterile Water 20 ML SLOW IVP SCH (21:08)
[2018-02-07] MEDS: Mirtazapine 15 MG TAB PO SCH (21:10)
[2018-02-07] MEDS: Enoxaparin Sodium 40 MG/0.4 ML SYRINGE SC SCH (21:11)
[2018-02-07 21:46] LABS: Vancomycin, Trough 14.1 ug/mL
[2018-02-07] MEDS ORDERED: Meropenem 1 GM in Sodium Chloride 0.9% 100 ML IVPB SCH (22:00)
[2018-02-07] MEDS: Vancomycin HCl 1.5 GM in Sodium Chloride 0.9% 250 ML 300 ML IVPB SCH (22:33)
[2018-02-08] MEDS: Meropenem 1 GM in Sterile Water 20 ML SLOW IVP SCH ×3 (04:39→20:59)
[2018-02-08] MEDS: Mometasone 100 MCG HFA INHALER INH SCH ×2 (06:35→19:08)
[2018-02-08] MEDS: Insulin Regular 300 UNITS/3 ML VIAL SC PRN (06:42)
[2018-02-08] MEDS: metroNIDAZOLE 500 MG TAB PO SCH ×3 (09:18→20:58)
[2018-02-08] MEDS: Famotidine 20 MG TAB PO SCH ×2 (09:18→20:58)
[2018-02-08] MEDS: Furosemide 40 MG TAB PO SCH (09:18)
[2018-02-08] MEDS: Saccharomyces boulardii 250 MG CAP PO SCH ×2 (09:18→20:57)
[2018-02-08] MEDS: Ferrous Sulfate 325 MG TAB PO SCH ×2 (09:19→20:57)
[2018-02-08] MEDS: Alogliptin 25 MG TAB PO SCH (09:19)
[2018-02-08] MEDS: metFORMIN 500 MG TAB PO SCH ×2 (09:19→16:48)
[2018-02-08] MEDS: Docusate 100 MG CAP PO SCH ×2 (09:19→20:59)
[2018-02-08] MEDS: Lisinopril 10 MG TAB PO SCH (09:19)
[2018-02-08] MEDS: Potassium Chloride 10 MEQ TAB PO SCH (09:19)
[2018-02-08] MEDS: Fluticasone Propionate Nasal Spray 16 gm Bottle NASAL SCH ×2 (09:20→21:00)
[2018-02-08] MEDS: Pregabalin 75 MG CAP PO SCH ×2 (09:20→21:00)
[2018-02-08] MEDS: Triamcinolone 0.1% Cream 15 GM TUBE TOP SCH ×2 (09:20→21:01)
--- NOTE | 2018-02-08 09:33 | PDOC.PN ---
- Subjective Encounter Start Date: 02/08/18 Encounter Start Time: 08:40 Patient seen and examined. No new complaints. No overnight events - Objective Resuscitation Status: Resuscitation Status FULL:Full Resuscitation MAR Reviewed: Yes Vital Signs & Weight: Vital Signs (12 hours) Temp Pulse Resp BP BP Pulse Ox 02/08/18 09:19 137/68 02/08/18 08:00 97.8 F 68 20 137/68 95 Weight Admit Weight 229 lb 3.2 oz Weight 229 lb 3.2 oz I&O: 02/07/18 02/08/18 02/09/18 06:59 06:59 06:59 Intake Total 500 Balance 500 Result Diagrams: 02/05/18 04:20 02/05/18 04:20 Additional Labs: Accuchecks 02/08/18 02/07/18 02/07/18 06:05 19:34 16:27 POC Glucose 179 H 152 H 102 02/07/18 11:23 POC Glucose 153 H Phys Exam - Physical Examination Constitutional: NAD HEENT: PERRLA, moist MMs, sclera anicteric Neck: no JVD, supple Respiratory: no wheezing, no rales, no rhonchi Cardiovascular: RRR, no significant murmur, no rub Gastrointestinal: soft, non-tender, no distention, positive bowel sounds Musculoskeletal: no edema, pulses present wound vac in place Neurological: non-focal, normal sensation, moves all 4 limbs Psychiatric: normal affect, A&O x 3 Skin: no rash, normal turgor Dx/Plan (1) Acute osteomyelitis of metatarsal bone of right foot Code(s): M86.171 - OTHER ACUTE OSTEOMYELITIS, RIGHT ANKLE AND FOOT Status: Acute (2) Diabetic foot infection Code(s): E11.69 - TYPE 2 DIABETES MELLITUS WITH OTHER SPECIFIED COMPLICATION; L08.9 - LOCAL INFECTION OF THE SKIN AND SUBCUTANEOUS TISSUE, UNSP Status: Acute (3) Diabetic foot ulcer Code(s): E11.621 - TYPE 2 DIABETES MELLITUS WITH FOOT ULCER; L97.509 - NON- PRESSURE CHRONIC ULCER OTH PRT UNSP FOOT W UNSP SEVERITY Status: Acute Qualifiers: Diabetic foot ulcer location: toe Diabetes mellitus type: type 2 Laterality: right (4) Anxiety and depression Code(s): F41.8 - OTHER SPECIFIED ANXIETY DISORDERS Status: Chronic (5) CKD (chronic kidney disease), stage III Code(s): N18.3 - CHRONIC KIDNEY DISEASE, STAGE 3 (MODERATE) Status: Chronic (6) Diabetic neuropathy Code(s): E11.40 - TYPE 2 DIABETES MELLITUS WITH DIABETIC NEUROPATHY, UNSP Status: Chronic Qualifiers: Diabetes mellitus type: type 2 Diabetes mellitus complication detail: diabetic polyneuropathy Qualified Code(s): E11.42 - Type 2 diabetes mellitus with diabetic polyneuropathy (7) Dyslipidemia Code(s): E78.5 - HYPERLIPIDEMIA, UNSPECIFIED Status: Chronic (8) GERD (gastroesophageal reflux disease) Code(s): K21.9 - GASTRO-ESOPHAGEAL REFLUX DISEASE WITHOUT ESOPHAGITIS Status: Chronic Qualifiers: Esophagitis presence: esophagitis presence not specified Qualified Code(s) : K21.9 - Gastro-esophageal reflux disease without esophagitis (9) Hypertension Code(s): I10 - ESSENTIAL (PRIMARY) HYPERTENSION Status: Chronic Qualifiers: Hypertension type: essential hypertension Qualified Code(s): I10 - Essential (primary) hypertension (10) Morbid obesity with BMI of 40.0-44.9, adult Code(s): E66.01 - MORBID (SEVERE) OBESITY DUE TO EXCESS CALORIES; Z68.41 - BODY MASS INDEX (BMI) 40.0-44.9, ADULT Status: Chronic (11) SONYA on CPAP Code(s): G47.33 - OBSTRUCTIVE SLEEP APNEA (ADULT) (PEDIATRIC); Z99.89 - DEPENDENCE ON OTHER ENABLING MACHINES AND DEVICES Status: Chronic (12) Fibromyalgia Status: Chronic (13) Rheumatoid arthritis Code(s): M06.9 - RHEUMATOID ARTHRITIS, UNSPECIFIED Status: Chronic - Plan cont current plan of care, continue antibiotics, adoption social worker * await outpt wound vac arrangement * no side effect with meropenam * will need invanz daily till 03/12/18 * medication reviewed as below * symptomatic treatment * possible discharge pending arrangement. Review of Systems - Review of Systems ENT: negative: Ear Pain, Ear Discharge, Nose Pain, Nose Discharge, Nose Congestion, Mouth Pain, Mouth Swelling, Throat Pain, Throat Swelling, Other Respiratory: negative: Cough, Dry, Shortness of Breath, Hemoptysis, SOB with Excertion, Pleuritic Pain, Sputum, Wheezing Cardiovascular: negative: chest pain, palpitations, orthopnea, paroxysmal nocturnal dyspnea, edema, light headedness, other Gastrointestinal: negative: Nausea, Vomiting, Abdominal Pain, Diarrhea, Constipation, Melena, Hematochezia, Other Genitourinary: negative: Dysuria, Frequency, Incontinence, Hematuria, Retention , Other Musculoskeletal: negative: Neck Pain, Shoulder Pain, Arm Pain, Back Pain, Hand Pain, Leg Pain, Foot Pain, Other Skin: negative: Rash, Lesions, Luis, Bruising, Other - Medications/Allergies Allergies/Adverse Reactions: Allergies Allergy/AdvReac Type Severity Reaction Status Date / Time cefuroxime axetil Allergy Severe Anaphylaxis Verified 09/26/17 23:35 [From Ceftin] codeine Allergy Severe Hives Verified 09/26/17 23:35 duloxetine HCl Allergy Severe Hives Verified 09/26/17 23:35 [From Cymbalta] Penicillins Allergy Severe Anaphylaxis Verified 09/26/17 23:35 amoxicillin Allergy Verified 09/26/17 23:35 ampicillin Allergy Verified 09/26/17 23:35 Fish Containing Products Allergy Verified 09/26/17 23:35 shellfish derived Allergy Verified 09/26/17 23:35 Sulfa (Sulfonamide Allergy Verified 09/26/17 23:35 Antibiotics) gabapentin AdvReac Severe Verified 02/03/18 22:50 Medications: Current Medications Acetaminophen (Tylenol) 650 mg PO Q4H PRN PRN Reason: Headache/Fever or Pain Last Admin: 02/06/18 20:57 Dose: 650 mg Acetaminophen (Tylenol) 1,000 mg PO Q6H PRN PRN Reason: Moderate to Severe Pain (6-10) Hydrocodone Bitart/Acetaminophen ([place] 5/325) 1 tab PO Q4H PRN PRN Reason: Pain Last Admin: 02/07/18 22:32 Dose: 1 tab Al Hydroxide/Mg Hydroxide (Maalox) 30 ml PO Q6H PRN PRN Reason: Heartburn or Indigestion Alogliptin Benzoate (Alogliptin) 25 mg PO DAILY [facility] Last Admin: 02/08/18 09:19 Dose: 25 mg Alprazolam (Xanax) 1 mg PO TID PRN PRN Reason: Anxiety Last Admin: 02/05/18 20:11 Dose: 1 mg Calcium Carbonate (Tums) 1,000 mg PO Q4H PRN PRN Reason: Heartburn or Indigestion Cholecalciferol (Vitamin D3) 2,000 units PO HS [facility] Last Admin: 02/07/18 21:10 Dose: 2,000 units Dextrose/Water (Dextrose 50%) 25 gm SLOW IVP PRN PRN PRN Reason: Hypoglycemia Diphenhydramine HCl (Benadryl) 50 mg PO Q6HR PRN PRN Reason: Nasal Congestion Docusate Sodium (Colace) 100 mg PO BID [facility] Last Admin: 02/08/18 09:19 Dose: Not Given Enoxaparin Sodium (Lovenox) 40 mg SC 2100 [facility] Last Admin: 02/07/18 21:11 Dose: 40 mg Famotidine (Pepcid) 20 mg PO BID [facility] Last Admin: 02/08/18 09:18 Dose: 20 mg Ferrous Sulfate (Feosol) 325 mg PO BID [facility] Last Admin: 02/08/18 09:19 Dose: 325 mg Fluticasone Propionate (Flonase Nasal [place]) 0 gm NASAL BID [facility] Last Admin: 02/08/18 09:20 Dose: 1 spr Furosemide (Lasix) 40 mg PO DAILY [facility] Last Admin: 02/08/18 09:18 Dose: 40 mg Glipizide (Glucotrol Xl) 5 mg PO BID-[facility] Last Admin: 02/08/18 09:19 Dose: 5 mg Glucagon (Glucagon) 1 mg IM PRN PRN PRN Reason: Hypoglycemia Hydralazine HCl (Apresoline) 10 mg SLOW IVP Q4H PRN PRN Reason: SBP Greater Than 180 Last Admin: 02/04/18 21:55 Dose: 10 mg Dextrose/Water (D5w) 1,000 mls @ 0 mls/hr IV .Q0M PRN; As Directed PRN Reason: Hypoglycemia Vancomycin HCl 1.5 gm/ Sodium (Chloride) 300 mls @ 150 mls/hr IVPB 2200 [facility] Last Admin: 02/07/18 22:33 Dose: 300 mls Meropenem 1 gm/ Sterile Water 20 mls @ 240 mls/hr SLOW IVP 0400,1200,2000 [facility] Last Admin: 02/08/18 04:39 Dose: 20 mls Ibuprofen (Motrin) 600 mg PO Q6H PRN PRN Reason: Pain Insulin Human Regular (Humulin R) 0 units SC .MILD SLIDING SCALE PRN PRN Reason: Mild Correctional Scale Last Admin: 02/08/18 06:42 Dose: 2 unit Insulin Human Regular (Humulin R) 0 units SC .BEDTIME SLIDING SC PRN PRN Reason: Bedtime Correctional Scale Last Admin: 02/04/18 21:08 Dose: 3 unit Lisinopril (Zestril) 10 mg PO DAILY [facility] Last Admin: 02/08/18 09:19 Dose: 10 mg Loperamide HCl (Imodium) 2 mg PO PRN PRN PRN Reason: Diarrhea/Loose Stools Last Admin: 02/05/18 20:06 Dose: 2 mg Melatonin (Melatonin) 9 mg PO HSPRN PRN PRN Reason: Insomnia Last Admin: 02/04/18 21:55 Dose: 9 mg Metformin HCl (Glucophage) 1,000 mg PO BID-WM [facility] Last Admin: 02/08/18 09:19 Dose: 1,000 mg Metronidazole (Flagyl) 500 mg PO TID [facility] Last Admin: 02/08/18 09:18 Dose: 500 mg Mirtazapine (Remeron) 15 mg PO [facility] Last Admin: 02/07/18 21:10 Dose: 15 mg Miscellaneous Medication (Pharmacy To Dose) 1 each IVPB ASDIR [facility] Mometasone Furoate (Asmanex Hfa 100 Mcg) 1 puff INH BID-RT [facility] Last Admin: 02/08/18 06:35 Dose: 1 puff Nystatin (Mycostatin Cream) 0 gm TOP BIDPRN PRN PRN Reason: Rash/Topical Irritation Ondansetron HCl (Zofran Odt) 4 mg PO Q6H PRN PRN Reason: Nausea/Vomiting Ondansetron HCl (Zofran) 4 mg IVP Q6H PRN PRN Reason: Nausea/Vomiting Potassium Chloride (Klor-Con 10) 10 meq PO DAILY [facility] Last Admin: 02/08/18 09:19 Dose: 10 meq Pregabalin (Lyrica) 150 mg PO BID [facility] Last Admin: 02/08/18 09:20 Dose: Not Given Rosuvastatin Calcium (Crestor) 40 mg PO [facility] Last Admin: 02/07/18 21:07 Dose: 40 mg Saccharomyces Boulardii (Florastor) 250 mg PO BID [facility] Last Admin: 02/08/18 09:18 Dose: 250 mg Senna (Senokot) 2 tab PO HSPRN PRN PRN Reason: Constipation Sertraline HCl (Zoloft) 250 mg PO HS [facility] Last Admin: 02/07/18 21:08 Dose: 250 mg Sodium Chloride (Flush - Normal Saline) 10 ml IVF Q12HR [facility] Last Admin: 02/08/18 09:20 Dose: 10 ml Sodium Chloride (Flush - Normal Saline) 10 ml IVF PRN PRN PRN Reason: Saline Flush Sumatriptan Succinate (Imitrex) 100 mg PO PRN PRN PRN Reason: Headache Tramadol HCl (Ultram) 50 mg PO Q4H PRN PRN Reason: Moderate Pain (4-6) Last Admin: 02/06/18 09:31 Dose: 50 mg Triamcinolone Acetonide (Kenalog 0.1% Cream) 0 gm TOP BID [facility] Last Admin: 02/08/18 09:20 Dose: 1 applic
[2018-02-08] MEDS: HYDROcodone/Acetaminophen 5/325 mg Tablet PO PRN ×3 (12:24→22:21)
[2018-02-08] MEDS: traMADol HCl 50 MG TAB PO PRN ×2 (13:53→19:45)
[2018-02-08] MEDS: Rosuvastatin 20 MG TAB PO SCH (20:57)
[2018-02-08] MEDS: Mirtazapine 15 MG TAB PO SCH (20:58)
[2018-02-08] MEDS: Enoxaparin Sodium 40 MG/0.4 ML SYRINGE SC SCH (20:58)
[2018-02-08] MEDS: Vancomycin HCl 1.5 GM in Sodium Chloride 0.9% 250 ML 300 ML IVPB SCH (22:23)
[2018-02-09] MEDS: traMADol HCl 50 MG TAB PO PRN ×2 (01:03→09:34)
[2018-02-09] MEDS: Meropenem 1 GM in Sterile Water 20 ML SLOW IVP SCH (04:54)
[2018-02-09] MEDS: Mometasone 100 MCG HFA INHALER INH SCH (05:58)
[2018-02-09] MEDS: Alogliptin 25 MG TAB PO SCH (08:50)
[2018-02-09] MEDS: metFORMIN 500 MG TAB PO SCH (08:50)
[2018-02-09] MEDS: Lisinopril 10 MG TAB PO SCH (08:51)
[2018-02-09] MEDS: Potassium Chloride 10 MEQ TAB PO SCH (08:51)
[2018-02-09] MEDS: Furosemide 40 MG TAB PO SCH (08:51)
[2018-02-09] MEDS: Saccharomyces boulardii 250 MG CAP PO SCH (08:51)
[2018-02-09] MEDS: Famotidine 20 MG TAB PO SCH (08:51)
[2018-02-09] MEDS: Docusate 100 MG CAP PO SCH (08:52)
[2018-02-09] MEDS: Ferrous Sulfate 325 MG TAB PO SCH (08:52)
[2018-02-09] MEDS: Fluticasone Propionate Nasal Spray 16 gm Bottle NASAL SCH (08:53)
[2018-02-09] MEDS: Pregabalin 75 MG CAP PO SCH (08:54)
[2018-02-09 08:56] VITALS: BP 130/79
[2018-02-09] MEDS: Triamcinolone 0.1% Cream 15 GM TUBE TOP SCH (08:57)
--- NOTE | 2018-02-09 09:04 | PDOC.PN ---
- Subjective Encounter Start Date: 02/09/18 Encounter Start Time: 07:20 Patient seen and examined. No new complaints. No overnight events - Objective Resuscitation Status: Resuscitation Status FULL:Full Resuscitation MAR Reviewed: Yes Vital Signs & Weight: Vital Signs (12 hours) Pulse Resp BP Pulse Ox 02/09/18 08:51 130/79 02/09/18 05:58 92 16 96 Weight Admit Weight 229 lb 3.2 oz Weight 229 lb 3.2 oz I&O: 02/08/18 02/09/18 02/10/18 06:59 06:59 06:59 Intake Total 500 920 Balance 500 920 Result Diagrams: 02/05/18 04:20 02/05/18 04:20 Additional Labs: Accuchecks 02/09/18 02/08/18 02/08/18 05:35 20:36 16:49 POC Glucose 110 136 H 134 H 02/08/18 11:38 POC Glucose 133 H Phys Exam - Physical Examination Constitutional: NAD HEENT: PERRLA, moist MMs, sclera anicteric Neck: no JVD, supple Respiratory: no wheezing, no rales, no rhonchi Cardiovascular: RRR, no significant murmur, no rub Gastrointestinal: soft, non-tender, no distention, positive bowel sounds Musculoskeletal: no edema, pulses present wound vac in place Neurological: non-focal, normal sensation, moves all 4 limbs Psychiatric: normal affect, A&O x 3 Skin: no rash, normal turgor Dx/Plan (1) Acute osteomyelitis of metatarsal bone of right foot Code(s): M86.171 - OTHER ACUTE OSTEOMYELITIS, RIGHT ANKLE AND FOOT Status: Acute (2) Diabetic foot infection Code(s): E11.69 - TYPE 2 DIABETES MELLITUS WITH OTHER SPECIFIED COMPLICATION; L08.9 - LOCAL INFECTION OF THE SKIN AND SUBCUTANEOUS TISSUE, UNSP Status: Acute (3) Diabetic foot ulcer Code(s): E11.621 - TYPE 2 DIABETES MELLITUS WITH FOOT ULCER; L97.509 - NON- PRESSURE CHRONIC ULCER OTH PRT UNSP FOOT W UNSP SEVERITY Status: Acute Qualifiers: Diabetic foot ulcer location: toe Diabetes mellitus type: type 2 Laterality: right (4) Anxiety and depression Code(s): F41.8 - OTHER SPECIFIED ANXIETY DISORDERS Status: Chronic (5) CKD (chronic kidney disease), stage III Code(s): N18.3 - CHRONIC KIDNEY DISEASE, STAGE 3 (MODERATE) Status: Chronic (6) Diabetic neuropathy Code(s): E11.40 - TYPE 2 DIABETES MELLITUS WITH DIABETIC NEUROPATHY, UNSP Status: Chronic Qualifiers: Diabetes mellitus type: type 2 Diabetes mellitus complication detail: diabetic polyneuropathy Qualified Code(s): E11.42 - Type 2 diabetes mellitus with diabetic polyneuropathy (7) Dyslipidemia Code(s): E78.5 - HYPERLIPIDEMIA, UNSPECIFIED Status: Chronic (8) GERD (gastroesophageal reflux disease) Code(s): K21.9 - GASTRO-ESOPHAGEAL REFLUX DISEASE WITHOUT ESOPHAGITIS Status: Chronic Qualifiers: Esophagitis presence: esophagitis presence not specified Qualified Code(s) : K21.9 - Gastro-esophageal reflux disease without esophagitis (9) Hypertension Code(s): I10 - ESSENTIAL (PRIMARY) HYPERTENSION Status: Chronic Qualifiers: Hypertension type: essential hypertension Qualified Code(s): I10 - Essential (primary) hypertension (10) Morbid obesity with BMI of 40.0-44.9, adult Code(s): E66.01 - MORBID (SEVERE) OBESITY DUE TO EXCESS CALORIES; Z68.41 - BODY MASS INDEX (BMI) 40.0-44.9, ADULT Status: Chronic (11) SONYA on CPAP Code(s): G47.33 - OBSTRUCTIVE SLEEP APNEA (ADULT) (PEDIATRIC); Z99.89 - DEPENDENCE ON OTHER ENABLING MACHINES AND DEVICES Status: Chronic (12) Fibromyalgia Status: Chronic (13) Rheumatoid arthritis Code(s): M06.9 - RHEUMATOID ARTHRITIS, UNSPECIFIED Status: Chronic - Plan cont 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 Review of Systems - Review of Systems ENT: negative: Ear Pain, Ear Discharge, Nose Pain, Nose Discharge, Nose Congestion, Mouth Pain, Mouth Swelling, Throat Pain, Throat Swelling, Other Respiratory: negative: Cough, Dry, Shortness of Breath, Hemoptysis, SOB with Excertion, Pleuritic Pain, Sputum, Wheezing Cardiovascular: negative: chest pain, palpitations, orthopnea, paroxysmal nocturnal dyspnea, edema, light headedness, other Gastrointestinal: negative: Nausea, Vomiting, Abdominal Pain, Diarrhea, Constipation, Melena, Hematochezia, Other Genitourinary: negative: Dysuria, Frequency, Incontinence, Hematuria, Retention , Other Musculoskeletal: negative: Neck Pain, Shoulder Pain, Arm Pain, Back Pain, Hand Pain, Leg Pain, Foot Pain, Other Skin: negative: Rash, Lesions, Luis, Bruising, Other - Medications/Allergies Allergies/Adverse Reactions: Allergies Allergy/AdvReac Type Severity Reaction Status Date / Time cefuroxime axetil Allergy Severe Anaphylaxis Verified 09/26/17 23:35 [From Ceftin] codeine Allergy Severe Hives Verified 09/26/17 23:35 duloxetine HCl Allergy Severe Hives Verified 09/26/17 23:35 [From Cymbalta] Penicillins Allergy Severe Anaphylaxis Verified 09/26/17 23:35 amoxicillin Allergy Verified 09/26/17 23:35 ampicillin Allergy Verified 09/26/17 23:35 Fish Containing Products Allergy Verified 09/26/17 23:35 shellfish derived Allergy Verified 09/26/17 23:35 Sulfa (Sulfonamide Allergy Verified 09/26/17 23:35 Antibiotics) gabapentin AdvReac Severe Verified 02/03/18 22:50 Medications: Current Medications Acetaminophen (Tylenol) 650 mg PO Q4H PRN PRN Reason: Headache/Fever or Pain Last Admin: 02/06/18 20:57 Dose: 650 mg Acetaminophen (Tylenol) 1,000 mg PO Q6H PRN PRN Reason: Moderate to Severe Pain (6-10) Hydrocodone Bitart/Acetaminophen ([place] 5/325) 1 tab PO Q4H PRN PRN Reason: Pain Last Admin: 02/08/18 22:21 Dose: 1 tab Al Hydroxide/Mg Hydroxide (Maalox) 30 ml PO Q6H PRN PRN Reason: Heartburn or Indigestion Alogliptin Benzoate (Alogliptin) 25 mg PO DAILY [facility] Last Admin: 02/09/18 08:50 Dose: 25 mg Alprazolam (Xanax) 1 mg PO TID PRN PRN Reason: Anxiety Last Admin: 02/05/18 20:11 Dose: 1 mg Calcium Carbonate (Tums) 1,000 mg PO Q4H PRN PRN Reason: Heartburn or Indigestion Cholecalciferol (Vitamin D3) 2,000 units PO HS [facility] Last Admin: 02/08/18 20:57 Dose: 2,000 units Dextrose/Water (Dextrose 50%) 25 gm SLOW IVP PRN PRN PRN Reason: Hypoglycemia Diphenhydramine HCl (Benadryl) 50 mg PO Q6HR PRN PRN Reason: Nasal Congestion Docusate Sodium (Colace) 100 mg PO BID [facility] Last Admin: 02/09/18 08:52 Dose: Not Given Enoxaparin Sodium (Lovenox) 40 mg SC 2100 [facility] Last Admin: 02/08/18 20:58 Dose: 40 mg Famotidine (Pepcid) 20 mg PO BID [facility] Last Admin: 02/09/18 08:51 Dose: 20 mg Ferrous Sulfate (Feosol) 325 mg PO BID [facility] Last Admin: 02/09/18 08:52 Dose: 325 mg Fluticasone Propionate (Flonase Nasal [place]) 0 gm NASAL BID [facility] Last Admin: 02/09/18 08:53 Dose: 1 spr Furosemide (Lasix) 40 mg PO DAILY [facility] Last Admin: 02/09/18 08:51 Dose: 40 mg Glipizide (Glucotrol Xl) 5 mg PO BID-[facility] Last Admin: 02/09/18 08:52 Dose: 5 mg Glucagon (Glucagon) 1 mg IM PRN PRN PRN Reason: Hypoglycemia Hydralazine HCl (Apresoline) 10 mg SLOW IVP Q4H PRN PRN Reason: SBP Greater Than 180 Last Admin: 02/04/18 21:55 Dose: 10 mg Dextrose/Water (D5w) 1,000 mls @ 0 mls/hr IV .Q0M PRN; As Directed PRN Reason: Hypoglycemia Vancomycin HCl 1.5 gm/ Sodium (Chloride) 300 mls @ 150 mls/hr IVPB 2200 [facility] Last Admin: 02/08/18 22:23 Dose: 300 mls Meropenem 1 gm/ Sterile Water 20 mls @ 240 mls/hr SLOW IVP 0400,1200,2000 [facility] Last Admin: 02/09/18 04:54 Dose: 20 mls Ibuprofen (Motrin) 600 mg PO Q6H PRN PRN Reason: Pain Insulin Human Regular (Humulin R) 0 units SC .MILD SLIDING SCALE PRN PRN Reason: Mild Correctional Scale Last Admin: 02/08/18 06:42 Dose: 2 unit Insulin Human Regular (Humulin R) 0 units SC .BEDTIME SLIDING SC PRN PRN Reason: Bedtime Correctional Scale Last Admin: 02/04/18 21:08 Dose: 3 unit Lisinopril (Zestril) 10 mg PO DAILY [facility] Last Admin: 02/09/18 08:51 Dose: 10 mg Loperamide HCl (Imodium) 2 mg PO PRN PRN PRN Reason: Diarrhea/Loose Stools Last Admin: 02/05/18 20:06 Dose: 2 mg Melatonin (Melatonin) 9 mg PO HSPRN PRN PRN Reason: Insomnia Last Admin: 02/04/18 21:55 Dose: 9 mg Metformin HCl (Glucophage) 1,000 mg PO BID-WM [facility] Last Admin: 02/09/18 08:50 Dose: 1,000 mg Metronidazole (Flagyl) 500 mg PO TID [facility] Last Admin: 02/08/18 20:58 Dose: 500 mg Mirtazapine (Remeron) [address] [facility] Last Admin: 02/08/18 20:58 Dose: 15 mg Miscellaneous Medication (Pharmacy To Dose) 1 each IVPB ASDIR [facility] Mometasone Furoate (Asmanex Hfa 100 Mcg) 1 puff INH BID-RT [facility] Last Admin: 02/09/18 05:58 Dose: 1 puff Nystatin (Mycostatin Cream) 0 gm TOP BIDPRN PRN PRN Reason: Rash/Topical Irritation Ondansetron HCl (Zofran Odt) 4 mg PO Q6H PRN PRN Reason: Nausea/Vomiting Ondansetron HCl (Zofran) 4 mg IVP Q6H PRN PRN Reason: Nausea/Vomiting Potassium Chloride (Klor-Con 10) 10 meq PO DAILY [facility] Last Admin: 02/09/18 08:51 Dose: 10 meq Pregabalin (Lyrica) 150 mg PO BID [facility] Last Admin: 02/09/18 08:54 Dose: Not Given Rosuvastatin Calcium (Crestor) [address] [facility] Last Admin: 02/08/18 20:57 Dose: 40 mg Saccharomyces Boulardii (Florastor) 250 mg PO BID [facility] Last Admin: 02/09/18 08:51 Dose: 250 mg Senna (Senokot) 2 tab PO HSPRN PRN PRN Reason: Constipation Sertraline HCl (Zoloft) [address] [facility] Last Admin: 02/08/18 20:58 Dose: 250 mg Sodium Chloride (Flush - Normal Saline) 10 ml IVF Q12HR [facility] Last Admin: 02/09/18 08:54 Dose: 10 ml Sodium Chloride (Flush - Normal Saline) 10 ml IVF PRN PRN PRN Reason: Saline Flush Sumatriptan Succinate (Imitrex) 100 mg PO PRN PRN PRN Reason: Headache Tramadol HCl (Ultram) 50 mg PO Q4H PRN PRN Reason: Moderate Pain (4-6) Last Admin: 02/09/18 01:03 Dose: 50 mg Triamcinolone Acetonide (Kenalog 0.1% Cream) 0 gm TOP BID [facility] Last Admin: 02/09/18 08:57 Dose: 1 applic
[2018-02-09 09:19] VITALS: TEMP 98.1
[2018-02-09] MEDS: metroNIDAZOLE 500 MG TAB PO SCH (09:34)
--- NOTE | 2018-02-09 10:23 | DIS ---
PRIMARY CARE PHYSICIAN: [facility]. DATE OF ADMISSION: 02/03/2018 DATE OF DISCHARGE: 02/09/2018 DISCHARGE DISPOSITION: Home with outpatient wound care as well as IV antibiotic therapy. PRIMARY PROCEDURE/OPERATION: 1. PICC line placement. 2. Dr. Vaughan did sharp excisional, resectional debridement of the fourth and fifth metatarsal. RADIOLOGICAL INVESTIGATION: Foot x-ray, lower extremity MRI. SIGNIFICANT LABS: WBC 9.5, hemoglobin 11.8, platelet 245. Sodium 135, creatinine 1.10. LFT normal. Blood culture negative. C. diff antigen positive, toxin negative. DISCHARGE MEDICATIONS: New medications: The patient will have Invanz 1 gram IV daily until 03/12/20 18 and during that period, the patient will have weekly CBC, CMP, CRP and the patient will follow up with Dr. Mendoza after treatment; Flagyl 500 mg p.o. t.i.d. for 15 days, Florastor 250 mg p.o. daily fo r 1 month, Florastor 250 mg p.o. b.i.d. for one month. CONTINUE FOLLOWING MEDICATIONS: Proventil HFA 2 puffs q.6 hourly p.r.n., alprazolam 1 mg p.o. t.i.d. p.r.n., Qvar one puff inhalation b.i.d., vitamin D3 of 2000 unit p.o. at bedtime, Benadryl 50 mg q.6 hours p.r.n., ferrous sulfate 325 mg p.o. b.i.d., Flonase nasal spray daily, Lasix 40 mg p.o. daily, glipizide 5 mg p.o. b.i.d., Combivent 2 puffs inhalation p.r.n., lisinopril 10 mg p.o. daily, Imodiu m p.r.n., melatonin 40 mg p.o. at bedtime, metformin 1000 mg p.o. b.i.d., Remeron 15 mg p.o. at bedti me, multivitamin 1 tablet p.o. daily, Nystatin cream topical application b.i.d., Prilosec 20 mg p.o. daily, Zofran 8 mg q.6 hourly p.r.n., potassium chloride 10 mEq p.o. daily, Crestor 40 mg p.o. daily, Zoloft 250 mg p.o. at bedtime, Januvia 100 mg p.o. daily, Imitrex 100 mg p.o. q.2 hourly p.r.n. as d irected, tramadol 50 mg q.6 hourly p.r.n., triamcinolone topical application b.i.d. p.r.n. CONTRAINDICATIONS: None. CODE STATUS: FULL CODE. INPATIENT CONSULTANTS: Dr. Mendoza was following while in hospital. Dr. Vaughan was consulted while in hospital. TEST RESULTS PENDING ON DISCHARGE: None. ALLERGIES: CEFUROXIME, CODEINE, CYMBALTA, PENICILLIN. DISCHARGE PLAN: Post hospital, the patient will continue IV antibiotic therapy and subsequently the patient will follow up with Dr. Mendoza as instructed. HOSPITAL COURSE: A 52-year-old female who was admitted by Dr. Denis Corona. Please see his H&P for f urther detail. The patient was diagnosed with osteomyelitis of metatarsal head at previous surgical site with diabetic foot infection and mild cellulitis. She was treated with initially vancomycin and Levaquin. Subsequently, we did start meropenem. She did not have any allergic reaction. She requi red Invanz 1 gram IV daily for 03/12/2018. The patient also had Clostridium difficile diarrhea and t hat is why she was treated with Flagyl. Probiotic was also prescribed. She was requiring wound VAC after surgery and that is why with help of case repairer, we arranged wound VAC as well as outpatient IV antibiotic therapy. Dr. Mendoza was thinking that patient will require IV antibiotic therapy and th at is why a PICC line was placed and outpatient IV antibiotic therapy is also arranged. The patient will continue all her previous medication. Otherwise, the patient is medically stable fo r discharge today. The patient is seen and examined at bedside today. Please see my progress note f rom today for further detail.
[2018-02-09] MEDS ORDERED: Heparin 1,000 UNITS/ML VIAL ONE (13:52)
--- NOTE | 2018-02-13 12:38 | PQF ---
Tony Avery SALIM NOORJIBHAI [id number] [id number] CLINICAL DOCUMENTATION CLARIFICATION FORM: POST DISCHARGE DATE: 02/13/2018 ATTN: Dr. Luna Please exercise your independent, professional judgment in responding to the clarification form. Clinical indicators are provided on the bottom of this form for your review Please check appropriate box(s): Please clarify if patient's osteomyelitis was: [ ] Osteomyelitis of right metatarsal head is a postoperative complication related to recent surgery [ x ] Osteomyelitis of right metatarsal head is not a postoperative complication related to recent surgery but is due to: [ x ] Osteomyelitis of right metatarsal head is due to diabetes mellitus [ ] Osteomyelitis of right metatarsal head is not due to diabetes mellitus [ ] Other diagnosis (please specify) [ ] Unable to determine In addition, please specify: Present on Admission (POA): [ x ] Yes [ ] No [ ] Unable to determine CLINICAL INDICATORS - SIGNS / SYMPTOMS / LABS (per H&P/ED record) MRI right foot noting postoperative changes around the fifth metatarsal. Changes that could reflect early osteitis. Overlying skin erythema and tenderness of the right foot. Cellulitis right foot. RISK FACTORS (per H&P/progress notes) Status post amputation or right small toe and metatarsal on 09/28/17. Diabetes mellitus with foot ulcer, infection and neuropathy. TREATMENT: (per operative report/medications) Debridement of fourth and fifth metatarsals 02/05. IV Vancomycin and Levaquin. IV Meropenem. IV Fluids (This form is maintained as a part of the permanent medical record) 2014 [employer]. All Rights Reserved [email or web address] [phone] [email or web address]
== END 2018-02-09 11:35 | disposition home or self-care (01) | DRG 988 ==
LOC: ERS 18:58 → T4-B 21:55
PROVIDERS: ADMIT Internal Medicine; ATTEND Internal Medicine
PROC: 0QTN0ZZ Resection of Right Metatarsal, Open Approach (ICD-10-PCS; principal; 2018-02-05)
PROC: 02H633Z Insertion of Infusion Device into Right Atrium, Percutaneous Approach (ICD-10-PCS; 2018-02-06)
DX: E11.69 Type 2 diabetes mellitus with other specified complication (principal); L03.115 Cellulitis of right lower limb; M86.171 Other acute osteomyelitis, right ankle and foot; E11.22 Type 2 diabetes mellitus with diabetic chronic kidney disease; M32.9 Systemic lupus erythematosus, unspecified; E11.42 Type 2 diabetes mellitus with diabetic polyneuropathy; E11.621 Type 2 diabetes mellitus with foot ulcer; A04.72 Enterocolitis due to Clostridium difficile, not specified as recurrent; N18.3 Chronic kidney disease, stage 3 (moderate); Z68.41 Body mass index [BMI] 40.0-44.9, adult; E11.628 Type 2 diabetes mellitus with other skin complications; E66.01 Morbid (severe) obesity due to excess calories; E88.81 Metabolic syndrome and other insulin resistance; I12.9 Hypertensive chronic kidney disease with stage 1 through stage 4 chronic kidney disease, or unspecified chronic kidney disease; G25.81 Restless legs syndrome; M06.9 Rheumatoid arthritis, unspecified; M79.7 Fibromyalgia; J44.9 Chronic obstructive pulmonary disease, unspecified; H40.9 Unspecified glaucoma; G47.33 Obstructive sleep apnea (adult) (pediatric); G40.909 Epilepsy, unspecified, not intractable, without status epilepticus; G43.909 Migraine, unspecified, not intractable, without status migrainosus; K90.0 Celiac disease; L97.519 Non-pressure chronic ulcer of other part of right foot with unspecified severity; L40.50 Arthropathic psoriasis, unspecified; Z87.891 Personal history of nicotine dependence; Z88.0 Allergy status to penicillin; Z88.5 Allergy status to narcotic agent; Z88.8 Allergy status to other drugs, medicaments and biological substances; Z91.013 Allergy to seafood; Z88.1 Allergy status to other antibiotic agents; Z79.84 Long term (current) use of oral hypoglycemic drugs; Z79.899 Other long term (current) drug therapy
CPT/HCPCS: 36415; 36416; 36569; 80053; 80202; 83605; 85025; 85652; 86140; 87040; 87324; 87449; 87493; 96365; 96375; A4216; A9579; C1751; J0360; J1644; J1650; J1815; J1956; J2001; J2185; J2250; J2704; J3010; J3370; J3490; J7050

== ENCOUNTER 2018-02-13 13:24 | Outpatient (CLI) | payer OTHER, SELFPAY ==
[2018-02-13] MEDS ORDERED: Sodium Chloride 0.9% 15 ML NEB ONE (19:53)
== END 2018-02-13 13:25 | disposition home or self-care (01) ==
LOC: WCC 13:24
PROVIDERS: ATTEND Family Medicine
DX: T81.89XA Other complications of procedures, not elsewhere classified, initial encounter (principal)
CPT/HCPCS: 36416; 97605; A4218

== ENCOUNTER 2018-02-15 14:56 | Emergency (ER) | payer OTHER, SELFPAY ==
[2018-02-15 17:55] LABS: #Eosinphils 0.3 thou/uL (0.0-0.7); #Lymphocytes 2.4 thou/uL (1.20-3.40); #Monocytes 0.5 thou/uL (0.11-0.59); %Basophils 0.4 % (0.0-1.0); %Eosinophils 3.8 % (0.0-10.0); %Lymphocytes 25.5 % (21.0-51.0); %Monocytes 5.5 % (0.0-10.0); %Neutrophils 64.8 % (42.0-75.0); Mean Corpuscular HGB CONC 34.5 g/dL (32.0-36.0); Mean Corpuscular Hemoglobin 28.8 pg (27.0-31.0); Mean Corpuscular Volume 83.4 fl (81.0-99.0); Mean Platelet Volume 7.8 fL (7.4-10.4); Platelet Count 285 thou/uL (130-400); RBC Distribution Width 13.3 % (11.5-14.5); White Blood Cell (WBC) Count 9.2 thou/uL (4.8-10.8)
[2018-02-15 18:02] LABS: INR-International Normal Ratio 1.2; Prothrombin Time 15.2 SEC (12.0-14.7)
[2018-02-15 18:09] LABS: ALT (SGPT) 27 U/L (8-55); AST (SGOT) 25 U/L (5-34); Albumin 3.9 g/dL (3.5-5.0); Alkaline Phosphatase 99 U/L (40-150); Anion Gap 14 mmol/L (10-20); BUN (Urea Nitrogen) 26 mg/dL (9.8-20.1); Bilirubin, Total 0.2 mg/dL (0.2-1.2); Calc. Creatinine Clearance 0 mL/min (70-130); Calcium 9.4 mg/dL (7.8-10.44); Carbon Dioxide 22 mmol/L (22-29); Chloride 104 mmol/L (98-107); Estimated GFR-MDRD 46; Globulin 3.5 g/dL (2.4-3.5); Glucose 327 mg/dL (70-105); Potassium 4.4 mmol/L (3.5-5.1); Protein, Total 7.4 g/dL (6.0-8.3); Sodium 136 mmol/L (136-145)
--- NOTE | 2018-02-15 19:04 | RAD ---
RADIOGRAPH CHEST 1 VIEW: 02/15/18 HISTORY: 52-year-old female status post acute right traumatic chest pain after fall. FINDINGS: There are no air space densities, pulmonary edema, pneumothorax, or cardiomegaly. The lateral costop hrenic angles are sharp. There is a left sided PICC with distal tip overlying the SVC. There is no ev idence of clavicular fracture. IMPRESSION: 1. No acute cardiopulmonary findings. 2. Left sided peripherally inserted central catheter (PICC). sloane [] POS: [facility]
[2018-02-15] MEDS ORDERED: traMADol HCl 50 MG TAB ONE (19:19)
--- NOTE | 2018-02-15 20:34 | CT ---
CT ABDOMEN NONCONTRAST CT PELVIS NONCONTRAST: (urolithiasis protocol) DATE: 02/15/18 TIME: 5:54 p.m. HISTORY: 52-year-old female with traumatic right sided abdominal and pelvic pain due to fall. COMPARISON: 02/22/17. TECHNIQUE: IV injection of iodinated contrast media: none Oral contrast media: none FINDINGS: Other than for urolithiasis, the lack of IV and oral contrast limits the evaluation. Vacuum joint phenomenon at the bilateral SI joints and in the right L4-5 facet joint. No fracture or dislocation of the pelvis. Lung bases are grossly clear. There is large region of mild fat stranding suggestive of mild edema in the adipose tissue superficial to the right gluteus musculature, which in the setting of fall, may represent mild contusion. There is no discrete hematoma. Within the limitat ions of a noncontrast scan, no major pathology is identified involving the kidneys, abdominal aorta, right adrenal, pancreas, or spleen. The liver is enlarged. There are cholecystectomy clips. No small bowel dilation. No signs of acute colonic diverticulitis. The urinary bladder is distended but has no rmal, thin zheng. No hydronephrosis. No renal, ureteral, or bladder calculus. There is a small left a drenal nodule which is unchanged since the previous CT, probably benign. Liver is enlarged. IMPRESSION: 1. The sensitivity for the detection of traumatic injury to the intra-abdominal organs is decrea sed without IV contrast. 2. No evidence of acute traumatic injury to the intra-abdominal or intrapelvic contents. 3. Hepatomegaly. 4. Status post cholecystectomy. 5. Stable, benign left adrenal nodule. [place] [facility] POS: [facility]
--- NOTE | 2018-02-15 20:38 | RAD ---
RADIOGRAPH RIGHT SHOULDER 3 VIEWS 02/15/18 HISTORY: 52-year-old female with right shoulder pain from fall. FINDINGS: No fracture or dislocation. Two soft tissue calcifications close to the greater tuberosity. Moderate DJD of AC joint. Mild to moderate DJD of glenohumeral joint. IMPRESSION: 1. Mild to moderate osteoarthrosis. 2. No fracture. 3. 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 POS: [facility]
--- NOTE | 2018-02-15 20:39 | RAD ---
RADIOGRAPH RIGHT ELBOW 4 VIEWS: 02/15/18 HISTORY: 52-year-old female status post acute right elbow injury from fall. FINDINGS: There is no fracture or dislocation. IMPRESSION: Negative. POS: [facility]
--- NOTE | 2018-02-15 20:42 | RAD ---
RADIOGRAPH RIGHT WRIST 3 VIEWS 02/15/18 HISTORY: 52-year-old female with traumatic right wrist pain from fall. FINDINGS: No fracture is identified. However, if there is snuff box tenderness that suggests an occult scaphoid fracture, then the general recommendation is immobilization and followup imaging in 5 to 10 days. Al ignment is normal, with no dislocation or subluxation. Degenerative changes are mild/minimal at the f irst CMC and STT complex. IMPRESSION: 1. No fracture identified. 2. Mild osteoarthrosis at first carpometacarpal joint and triscaphe region. POS: [facility]
== END 2018-02-15 19:24 | disposition home or self-care (01) ==
LOC: ERS 14:56
DX: S30.0XXA Contusion of lower back and pelvis, initial encounter (principal); S59.901A Unspecified injury of right elbow, initial encounter; S49.91XA Unspecified injury of right shoulder and upper arm, initial encounter; S69.91XA Unspecified injury of right wrist, hand and finger(s), initial encounter; G47.30 Sleep apnea, unspecified; E78.5 Hyperlipidemia, unspecified; I10 Essential (primary) hypertension; K21.9 Gastro-esophageal reflux disease without esophagitis; E11.40 Type 2 diabetes mellitus with diabetic neuropathy, unspecified; G43.909 Migraine, unspecified, not intractable, without status migrainosus; F41.9 Anxiety disorder, unspecified; F32.9 Major depressive disorder, single episode, unspecified; Z87.891 Personal history of nicotine dependence; J45.909 Unspecified asthma, uncomplicated; W19.XXXA Unspecified fall, initial encounter
CPT/HCPCS: 36415; 71045; 74176; 80053; 85025; 85610

== ENCOUNTER 2018-02-16 13:40 | Outpatient (CLI) | payer OTHER, SELFPAY ==
[2018-02-17] MEDS ORDERED: Sodium Chloride 0.9% 15 ML NEB ONE (12:33)
== END 2018-02-16 13:41 | disposition home or self-care (01) ==
LOC: WCC 13:40
PROVIDERS: ATTEND Family Medicine
DX: T81.89XD Other complications of procedures, not elsewhere classified, subsequent encounter (principal)
CPT/HCPCS: 36416; 97605

== ENCOUNTER 2018-02-20 13:19 | Outpatient (CLI) | payer OTHER | END 2018-02-20 13:20 | disposition home or self-care (01) | LOC: WCC 13:19 | PROVIDERS: ATTEND Family Medicine | DX: T81.89XD Other complications of procedures, not elsewhere classified, subsequent encounter (principal) | CPT/HCPCS: 36416; 97605 ==

== ENCOUNTER 2018-02-23 09:57 | Outpatient (CLI) | payer OTHER ==
--- NOTE | 2018-02-23 14:07 | PRG ---
DATE OF SERVICE: 02/23/2018 HISTORY: Ms. Tony Avery is a very pleasant 52-year-old who presents to the Wound Center for evaluation of a wound of the right lateral foot. Since the patient was last seen in the Wound Center, Ms. Avery has undergone sharp excisional resectional debridement by Dr. Robinson Vaughan on 09/2018. Negative pressure therapy was initiated intraoperatively. Also during the patient's hospital stay, Ms. Avery was seen in consultation by Dr. Jose Mendoza of Infectious Diseases. The patient is now receiving IV antibiotics as per Dr. Jose Mendoza. Upon discharge from [facility], the patient was referred to the Wound Center for assistance with dressing changes of the wound VAC. PHYSICAL EXAMINATION: VITAL SIGNS: Temperature 98.4, pulse 84, respirations 19, blood pressure 140/ 66. Accu-Chek 221. EXTREMITIES: A wound of the right lateral foot is present, which measures approximately 2.5 x 2.8 cm. Granulation tissue is present within the wound margins. Nonviable tissue present within the wound margins was debrided with an excisional full-thickness debridement. No purulent drainage is associated with the wound. No erythema of the skin surrounding the wound is present. No maceration of the skin of the periwound is noted. A dorsalis pedis pulse is easily palpable on the right. No significant edema of the right foot is appreciated on exam today. ASSESSMENT AND PLAN: 1. Right lateral foot wound as described above. Negative pressure therapy will be continued with dressing changes of the wound VAC here in the Wound Center. The patient will be seen by Dr. Vaughan in 1 week. I will see Ms. Avery again in 2 weeks. 2. Diabetes mellitus. The patient's Accu-Chek in clinic today is 221. The patient has been reminded that for optimal wound healing, her blood glucoses should remain below 150. 3. Hypertension. 4. Glaucoma. 5. Fibromyalgia. 6. Asthma/chronic obstructive pulmonary disease. 7. Obstructive sleep apnea. 8. History of seizure disorder. 9. Gastroesophageal reflux disease. 10. Migraine headaches. 11. Rheumatoid arthritis/psoriatic arthritis. 12. Lupus. 13. Celiac disease. 14. Osteoarthritis. MTDD
[2018-02-23] MEDS ORDERED: Sodium Chloride 0.9% 15 ML NEB ONE (16:59)
== END 2018-02-23 09:58 | disposition home or self-care (01) ==
LOC: WCC 09:57
PROVIDERS: ATTEND Family Medicine
DX: S91.301D Unspecified open wound, right foot, subsequent encounter (principal); E11.69 Type 2 diabetes mellitus with other specified complication; I10 Essential (primary) hypertension; H40.9 Unspecified glaucoma; M79.7 Fibromyalgia; J44.9 Chronic obstructive pulmonary disease, unspecified; K21.9 Gastro-esophageal reflux disease without esophagitis; G40.909 Epilepsy, unspecified, not intractable, without status epilepticus; G43.909 Migraine, unspecified, not intractable, without status migrainosus; M06.9 Rheumatoid arthritis, unspecified; A18.4 Tuberculosis of skin and subcutaneous tissue; K90.0 Celiac disease; M19.90 Unspecified osteoarthritis, unspecified site
CPT/HCPCS: 11042; A4218

== ENCOUNTER 2018-02-27 13:11 | Outpatient (CLI) | payer OTHER ==
[2018-02-27] MEDS ORDERED: Sodium Chloride 0.9% 15 ML NEB ONE (19:56)
== END 2018-02-27 13:12 | disposition home or self-care (01) ==
LOC: WCC 13:11
PROVIDERS: ATTEND Family Medicine
DX: T81.89XD Other complications of procedures, not elsewhere classified, subsequent encounter (principal)
CPT/HCPCS: 97605; A4218

== ENCOUNTER 2018-03-02 13:12 | Outpatient (CLI) | payer OTHER | END 2018-03-02 13:13 | disposition home or self-care (01) | LOC: WCC 13:12 | PROVIDERS: ATTEND Family Medicine | DX: T81.89XD Other complications of procedures, not elsewhere classified, subsequent encounter (principal) | CPT/HCPCS: 97605 ==

== ENCOUNTER 2018-03-06 13:32 | Outpatient (CLI) | payer OTHER ==
[2018-03-06] MEDS ORDERED: Sodium Chloride 0.9% 15 ML NEB ONE (21:00)
== END 2018-03-06 13:33 | disposition home or self-care (01) ==
LOC: WCC 13:32
PROVIDERS: ATTEND Family Medicine
DX: T81.89XD Other complications of procedures, not elsewhere classified, subsequent encounter (principal)
CPT/HCPCS: 97605; A4218

== ENCOUNTER 2018-03-09 10:01 | Outpatient (CLI) | payer OTHER ==
--- NOTE | 2018-03-09 12:15 | PRG ---
DATE OF SERVICE: 03/09/2018 HISTORY: Ms. Tony Avery is a very pleasant 52-year-old who presents to the Wound Center for evaluat ion of a wound of the right lateral foot. The patient recently underwent sharp excisional resectiona l debridement by Dr. Robinson Vaughan on 02/05/2018. Negative pressure therapy was initiated intraoper atively. Also during the patient's hospital stay, Ms. Avery was seen in consultation by Dr. Jose Mendoza of Infectious Diseases. The patient has received IV antibiotics as per Dr. Jose Mendoza. Upo n discharge from [facility], the patient was referred to the Wound Center for assistance with dressing changes of the wound VAC. PHYSICAL EXAMINATION: VITAL SIGNS: Temperature 98.6, pulse 82, respirations 18, blood pressure 142/60. Accu-Chek 183. EXTREMITIES: A wound of the right lateral foot is present, which measures approximately 2.0 x 2.8 cm . Granulation tissue is present within the wound margins. Nonviable tissue present within the wound margins was debrided with an excisional full-thickness debridement. No purulent drainage is associa lambert with the wound. No erythema of the skin surrounding the wound is present. No maceration of the skin of the periwound is noted. No significant edema of the right foot is present on exam today. ASSESSMENT AND PLAN: 1. Right lateral foot wound as described above. Negative pressure therapy will be continued with dr cedillo changes of the wound VAC here in the Wound Center. The patient will be seen by Dr. Vaughan in 1 week. I will see Ms. Avery again in two weeks. 2. Diabetes mellitus. The patient's Accu-Chek in clinic today is 183. The patient has been reminde d that for optimal wound healing, her blood glucoses should remain below 150. 3. Hypertension. 4. Glaucoma. 5. Fibromyalgia. 6. Asthma/chronic obstructive pulmonary disease. 7. Obstructive sleep apnea. 8. History of seizure disorder. 9. Gastroesophageal reflux disease. 10. Migraine headaches. 11. Rheumatoid arthritis/psoriatic arthritis. 12. Lupus. 13. Celiac disease. 14. Osteoarthritis.
== END 2018-03-09 10:02 | disposition home or self-care (01) ==
LOC: WCC 10:01
PROVIDERS: ATTEND Family Medicine
DX: S91.301D Unspecified open wound, right foot, subsequent encounter (principal); E11.69 Type 2 diabetes mellitus with other specified complication; I10 Essential (primary) hypertension; H40.9 Unspecified glaucoma; M79.7 Fibromyalgia; J44.9 Chronic obstructive pulmonary disease, unspecified; G47.33 Obstructive sleep apnea (adult) (pediatric); G40.909 Epilepsy, unspecified, not intractable, without status epilepticus; K21.9 Gastro-esophageal reflux disease without esophagitis; G43.909 Migraine, unspecified, not intractable, without status migrainosus; M32.9 Systemic lupus erythematosus, unspecified; K90.0 Celiac disease; M19.90 Unspecified osteoarthritis, unspecified site
CPT/HCPCS: 11042; 36416

== ENCOUNTER 2018-03-13 13:58 | Outpatient (CLI) | payer OTHER ==
[2018-03-13] MEDS ORDERED: Sodium Chloride 0.9% 15 ML NEB ONE (14:58)
== END 2018-03-13 13:59 | disposition home or self-care (01) ==
LOC: WCC 13:58
PROVIDERS: ATTEND Family Medicine
DX: T81.89XD Other complications of procedures, not elsewhere classified, subsequent encounter (principal)
CPT/HCPCS: 97605; A4218

== ENCOUNTER 2018-03-16 11:42 | Outpatient (CLI) | payer OTHER | END 2018-03-16 11:43 | disposition home or self-care (01) | LOC: WCC 11:42 | PROVIDERS: ATTEND Family Medicine | DX: T81.89XD Other complications of procedures, not elsewhere classified, subsequent encounter (principal) | CPT/HCPCS: 97602 ==

== ENCOUNTER 2018-03-17 21:53 | Emergency (ER) | payer OTHER, SELFPAY ==
[2018-03-17] MEDS ORDERED: Ketorolac Tromethamine 30 MG/ML VIAL ONE (23:08)
[2018-03-17] MEDS ORDERED: Morphine 4 MG/ML VIAL ONE (23:08)
--- NOTE | 2018-03-17 23:22 | CT ---
NONCONTRAST CT ABDOMEN AND PELVIS CT LUMBAR SPINE 03/17/18 HISTORY: Chronic back pain. Patient fell from standing. Pain is sharper than normal back pain. COMPARISON: 02/15/18. FINDINGS: CT ABDOMEN AND PELVIS: There is a small pleural based nodular density anterior lateral right middle lobe stable from study i n 2014. Lung bases are otherwise clear. The liver remains mildly enlarged in craniocaudal dimensions measuring 18 cm. Post cholecystectomy changes are noted. There is also evidence of hysterectomy. The spleen, pancreas, bilateral adrenal glands, kidneys, and urinary bladder demonstrate a grossly no rmal nonenhanced CT appearance. No renal or ureteral calculi are seen bilaterally. Vascular calcifications are again seen in the abdominal aorta and iliac arteries. No other interval c hange from prior exam. CT LUMBAR SPINE: There is mild wedge shaped deformity involving T12 vertebral body also seen on the prior study in 201 8. Remaining vertebral body heights are within normal limits. No additional fracture is seen involving [facility] lumbar spine and there is no evidence of a subluxation. There is mild broad based disc bulges at [facility] L3-4 and L4-5 levels with resultant mild effacement of the ventral aspect of the thecal sac at the se levels, greater at the L4-5 level. There is mild narrowing of the central spinal canal as well as mild to moderate left sided neural foraminal narrowing at the L4-5 level. IMPRESSION: 1. No acute findings are seen in the abdomen or pelvis. 2. Minimal wedge shaped compression deformity involving the T12 vertebral body which demonstrate d similar finding on prior study on 02/15/18 and also had a similar finding on lateral clean out driller view of [facility] CT abdomen on 02/22/17. This likely represents a remote compression deformity. 3. Multilevel degenerative changes in the lumbar spine. In addition, there are degenerative spencer ges of the visualized lower thoracic spine with prominent osteophytes present anteriorly. POS: [facility]
--- NOTE | 2018-03-17 23:48 | RAD ---
AP VIEW PELVIS: 03/17/18 HISTORY: Chronic back pain. Injury after a recent fall from standing. Pain sharper than normal. COMPARISON: 07/11/16. FINDINGS: No fracture or dislocation is seen. Surgical clips again overlie the pelvis. Phleboliths overlies the left hemipelvis. No other findings. There has been no interval change from prior exam. IMPRESSION: No acute osseous abnormality. POS: [facility]
--- NOTE | 2018-03-17 23:49 | RAD ---
FOUR VIEWS LEFT KNEE 03/17/18 HISTORY: Left knee trauma. FINDINGS: There is no evidence of a fracture or dislocation. A superior patellar enthesophyte is noted. No obvi ous joint effusion is seen. There is no joint space narrowing. IMPRESSION: No acute osseous abnormality. POS: [facility]
[2018-03-17 23:52] LABS: Bilirubin Negative (Negative); Blood, Urine Moderate (Negative); Clarity CLEAR (Clear); Glucose, Urine (Dipstick) 100 mg/dL (Negative); Leukocyte Negative (Negative); Nitrite Negative (Negative); Protein, Urine (Dipstick) 100 mg/dL (Neg-Trace); Specific Gravity, Urine 1.022 (1.002-1.036); Urobilinogen 0.2 mg/dL (0.2-1.0)
[2018-03-17 23:54] LABS: Bacteria/HPF None Seen HPF (None Seen); Hyaline Casts/LPF 0-3 HYALINE CAST LPF (0-3 Hyaline); Pathc Cast-AUWi Flag 0.29 (0-2.49); Squamous Epithelial 0-3 HPF (0-3); WBC/HPF 0-3 HPF (0-3)
--- NOTE | 2018-03-17 23:54 | RAD ---
PORTABLE AP CHEST X-RAY 03/17/18 HISTORY: Post fall. Chronic back pain. The back pain is now sharper than normal. COMPARISON: 02/15/18. FINDINGS: The cardiac silhouette and pulmonary vasculature are magnified by projection. The lungs remain clear. Degenerative changes are noted in the spine. There has been no interval change from prior study. IMPRESSION: No acute cardiopulmonary process. POS: [facility]
== END 2018-03-18 00:40 | disposition home or self-care (01) ==
LOC: ERS 21:53
DX: S30.0XXA Contusion of lower back and pelvis, initial encounter (principal); S80.02XA Contusion of left knee, initial encounter; R31.29 Other microscopic hematuria; J45.909 Unspecified asthma, uncomplicated; E11.9 Type 2 diabetes mellitus without complications; E78.5 Hyperlipidemia, unspecified; I10 Essential (primary) hypertension; M06.9 Rheumatoid arthritis, unspecified; K21.9 Gastro-esophageal reflux disease without esophagitis; G43.909 Migraine, unspecified, not intractable, without status migrainosus; F41.9 Anxiety disorder, unspecified; F32.9 Major depressive disorder, single episode, unspecified; Z87.891 Personal history of nicotine dependence; W18.30XA Fall on same level, unspecified, initial encounter
CPT/HCPCS: 71045; 72170; 74176; 81003; 81015; 87086; 96372; J1885; J2270

== ENCOUNTER 2018-03-30 13:48 | Outpatient (CLI) | payer OTHER ==
--- NOTE | 2018-03-30 14:30 | PRG ---
DATE OF SERVICE: 03/30/2018 HISTORY: Ms. Tony Avery is a very pleasant 52-year-old who presents to the Wound Center for evaluat ion of a wound of the right lateral foot. The patient recently underwent sharp excisional resectiona l debridement by Dr. Robinson Vaughan on 02/05/2018. Negative pressure therapy was initiated intraoper atively. Also, during the patient's hospital stay, Ms. Avery was seen in consultation by Dr. Jose Mendoza of Infectious Diseases. The patient has received IV antibiotics as per Dr. Jose Mendoza. Up on discharge from [facility], the patient was referred to the Wound Center for assistance with dressing changes of the wound VAC. The patient has completed a course of negative p ressure therapy and is now performing dressing changes of Silvercel for her right lateral foot wound. PHYSICAL EXAMINATION: VITAL SIGNS: Temperature 99.1, pulse 101, respirations 18, blood pressure 136/77. Accu-Chek 137. EXTREMITIES: A wound of the right lateral foot is present which measures approximately 1.3 x 0.5 cm. Granulation tissue is present within the wound margins. Nonviable tissue present within the wound margins was debrided with an excisional full-thickness debridement with the use of a curette. No pur ulent drainage is associated with the wound. No cellulitis of the right foot is appreciated. No mac eration of the skin of the periwound is noted. No significant edema of the right foot is present on exam today. ASSESSMENT AND PLAN: 1. Right lateral foot wound as described above. Dressing changes of Silvercel and bordered gauze ar e to be performed every other day after cleansing and irrigation. The patient will be performing her own dressing changes. The patient will be seen by Dr. Vaughan in 3 weeks. I will see Ms. Gena rebolledo in two weeks. 2. Diabetes mellitus. The patient's Accu-Chek in clinic today is 137. The patient has been reminde d that for optimal wound healing, her blood glucoses should remain below 150. 3. Hypertension. 4. Glaucoma. 5. Fibromyalgia. 6. Asthma/chronic obstructive pulmonary disease. 7. Obstructive sleep apnea. 8. History of seizure disorder. 9. Gastroesophageal reflux disease. 10. Migraine headaches. 11. Rheumatoid arthritis/psoriatic arthritis. 12. Lupus. 13. Celiac disease. 14. Osteoarthritis.
[2018-03-30] MEDS ORDERED: Lidocaine 2% Jelly 5 ML TUBE ONE (15:32)
[2018-03-30] MEDS ORDERED: Sodium Chloride 0.9% 15 ML NEB ONE (15:32)
== END 2018-03-30 13:49 | disposition home or self-care (01) ==
LOC: WCC 13:48
PROVIDERS: ATTEND Family Medicine
DX: E11.621 Type 2 diabetes mellitus with foot ulcer (principal); L97.919 Non-pressure chronic ulcer of unspecified part of right lower leg with unspecified severity; I10 Essential (primary) hypertension; E11.39 Type 2 diabetes mellitus with other diabetic ophthalmic complication; H40.9 Unspecified glaucoma; M79.7 Fibromyalgia; J44.9 Chronic obstructive pulmonary disease, unspecified; G47.33 Obstructive sleep apnea (adult) (pediatric); K21.9 Gastro-esophageal reflux disease without esophagitis; G43.909 Migraine, unspecified, not intractable, without status migrainosus; M06.9 Rheumatoid arthritis, unspecified; L40.50 Arthropathic psoriasis, unspecified; M32.9 Systemic lupus erythematosus, unspecified; K90.0 Celiac disease; G40.909 Epilepsy, unspecified, not intractable, without status epilepticus; M19.90 Unspecified osteoarthritis, unspecified site
CPT/HCPCS: 11042; 36416; A4218

== ENCOUNTER 2018-04-13 13:30 | Outpatient (CLI) | payer OTHER ==
--- NOTE | 2018-04-13 15:18 | PRG ---
DATE OF SERVICE: 04/13/2018 HISTORY: Ms. Tony Avery is a very pleasant 52-year-old who presents to the Wound Center for evaluat ion of a wound of the right lateral foot. The patient underwent sharp excisional resectional debride ment by Dr. Robinson Vaughan on 02/05/2018. Negative pressure therapy was initiated. Also, during the patient's hospital stay, Ms. Avery was seen in consultation by Dr. Jose Mendoza of [facility]. The patient has received IV antibiotics as per Dr. Jose Mendoza. Upon discharge from [facility], the patient was referred to the Wound Center for assistance with dressing changes of the wound VAC. The patient has completed a course of negative pressure therapy and is now receiving dressing changes of Silvercel for her right lateral foot wound. PHYSICAL EXAMINATION: VITAL SIGNS: Temperature 98.6, pulse 111, respirations 20, blood pressure 141/68. Accu-Chek 149. EXTREMITIES: A wound of the right lateral foot is present which measures approximately 1.2 x 0.2 cm. Granulation tissue is present within the wound margins. Nonviable tissue present within the wound margins was debrided with an excisional full-thickness debridement with the use of a curette. Callus and desiccated tissue at the periphery of the wound were excised with the use of scissors. No purul ent drainage is associated with the wound. No cellulitis of the right foot is appreciated. No macer ation of the skin of the periwound is noted. A dorsalis pedis pulse is palpable on the right. No si gnificant edema of the right foot is present on exam today. ASSESSMENT AND PLAN: 1. Right lateral foot wound as described above. Dressing changes of Silvercel and bordered gauze ar e to be performed every other day after cleansing and irrigation. The patient will be seen by Dr. Melara in 1 week. I will see Ms. Avery again in two weeks if her wound is still present at this time. 2. Diabetes mellitus. The patient's Accu-Chek in clinic today is 149. The patient has been reminde d that for optimal wound healing, her blood glucoses should remain below 150. 3. Hypertension. 4. Glaucoma. 5. Fibromyalgia. 6. Asthma/chronic obstructive pulmonary disease. 7. Obstructive sleep apnea. 8. History of seizure disorder. 9. Gastroesophageal reflux disease. 10. Migraine headaches. 11. Rheumatoid arthritis/psoriatic arthritis. 12. Lupus. 13. Celiac disease. 14. Osteoarthritis.
== END 2018-04-13 13:31 | disposition home or self-care (01) ==
LOC: WCC 13:30
PROVIDERS: ATTEND Family Medicine
DX: S91.301D Unspecified open wound, right foot, subsequent encounter (principal); E11.69 Type 2 diabetes mellitus with other specified complication; I10 Essential (primary) hypertension; H40.9 Unspecified glaucoma; M79.7 Fibromyalgia; J44.9 Chronic obstructive pulmonary disease, unspecified; G47.33 Obstructive sleep apnea (adult) (pediatric); K21.9 Gastro-esophageal reflux disease without esophagitis; G43.909 Migraine, unspecified, not intractable, without status migrainosus; G40.909 Epilepsy, unspecified, not intractable, without status epilepticus; M32.9 Systemic lupus erythematosus, unspecified; K90.0 Celiac disease; M19.90 Unspecified osteoarthritis, unspecified site
CPT/HCPCS: 11042

== ENCOUNTER 2018-05-03 13:42 | Outpatient (CLI) | payer OTHER ==
--- NOTE | 2018-05-03 15:09 | PRG ---
DATE OF SERVICE: 05/03/2018 HISTORY: Ms. Tony Avery is a very pleasant 52-year-old who presents to the Wound Center for evaluat ion of a wound of the right lateral foot. The patient underwent sharp excisional resectional debride ment by Dr. Vaughan on 02/05/2018. Negative pressure therapy was initiated intraoperatively. Also, d uring the patient's hospital stay, Ms. Avery was seen in consultation by Dr. Jose Mendoza of Infecti ous Diseases. The patient has received IV antibiotics as per Dr. Mendoza. Upon discharge from [facility], the patient was referred to the Wound Center for assistance with dressing changes of the wound VAC. The patient has completed a course of negative pressure therapy for her r ight lateral foot wound. Since the patient's last visit to the Wound Center, Ms. Avery was seen by Tru Vaughan and dressing changes of antibiotic ointment initiated. The patient states she has been per forming these dressing changes as prescribed. PHYSICAL EXAMINATION: VITAL SIGNS: Temperature 98.7, pulse 107, respirations 18, blood pressure 141/74. Accu-Chek 160. EXTREMITIES: A wound of the right lateral foot is present which measures approximately 1.1 x 0.3 cm. Granulation tissue is present within the wound margins. Nonviable tissue present within the wound margins was debrided with an excisional full-thickness debridement with the use of a curette. Callus and desiccated tissue at the periphery of the wound were excised with the use of scissors. No purul ent drainage is associated with the wound. No cellulitis of the right foot is appreciated. No macer ation of the skin of the periwound is noted. No significant edema of the right foot is present on ex am today. ASSESSMENT AND PLAN: 1. Right lateral foot wound as described above. Dressing changes of antibiotic ointment are to be c ontinued as per Dr. Vaughan. I will see Ms. Avery again in two weeks. 2. Diabetes mellitus. The patient's Accu-Chek in clinic today is 160. The patient has been reminde d that for optimal wound healing, her blood glucoses should remain below 150. 3. Hypertension. 4. Glaucoma. 5. Fibromyalgia. 6. Asthma/chronic obstructive pulmonary disease. 7. Obstructive sleep apnea. 8. History of seizure disorder. 9. Gastroesophageal reflux disease. 10. Migraine headaches. 11. Rheumatoid arthritis/psoriatic arthritis. 12. Lupus. 13. Celiac disease. 14. Osteoarthritis.
== END 2018-05-03 13:43 | disposition home or self-care (01) ==
LOC: WCC 13:42
PROVIDERS: ATTEND Family Medicine
DX: E11.621 Type 2 diabetes mellitus with foot ulcer (principal); L97.519 Non-pressure chronic ulcer of other part of right foot with unspecified severity; H40.9 Unspecified glaucoma; I10 Essential (primary) hypertension; J45.909 Unspecified asthma, uncomplicated; M79.7 Fibromyalgia; G47.33 Obstructive sleep apnea (adult) (pediatric); K21.9 Gastro-esophageal reflux disease without esophagitis; G43.909 Migraine, unspecified, not intractable, without status migrainosus; L40.50 Arthropathic psoriasis, unspecified; I00 Rheumatic fever without heart involvement; M32.9 Systemic lupus erythematosus, unspecified; M19.90 Unspecified osteoarthritis, unspecified site; K90.0 Celiac disease

== ENCOUNTER 2018-05-20 08:07 | Inpatient (IN) | payer OTHER ==
[2018-05-20] MEDS ORDERED: Fentanyl 100 MCG/2 ML VIAL ONE (08:49)
--- NOTE | 2018-05-20 08:54 | RAD ---
TWO VIEWS OF THE RIGHT FEMUR: COMPARISON: 11/13/15. HISTORY: Slipped on the floor and heard a snap in her right ankle. Right leg deformity. FINDINGS: Two views of the right femur show no evidence of acute fracture or dislocation. No degenerative spencer ges are seen in the hip or knee. IMPRESSION: Unremarkable exam. POS: [facility]
--- NOTE | 2018-05-20 09:00 | RAD ---
SINGLE VIEW OF THE PELVIS: COMPARISON: 03/17/18. HISTORY: Slipped on the floor with right ankle fracture. FINDINGS: A single view of the pelvis shows no evidence of acute fracture or dislocation. No degenerative spencer ges are seen in either hip. IMPRESSION: Unremarkable exam. POS: [facility]
--- NOTE | 2018-05-20 09:00 | RAD ---
THREE VIEWS RIGHT ANKLE: COMPARISON: None. HISTORY: Slipped on the floor with right ankle pain and deformity. FINDINGS: Three views right ankle show a fracture of the distal fibula. There is a fracture of the medial mall eolus. There is subluxation of the talus in relation to the tibia and widening of the tibiofibular j oint as well as widening of the medial clear space. Diffuse surrounding soft tissue swelling is seen . The patient has had amputation of the small toe with heterotopic calcifications in the region of the amputation site. IMPRESSION: Fracture subluxation of the right ankle as above. POS: [facility]
--- NOTE | 2018-05-20 11:15 | RAD ---
THREE VIEWS OF THE RIGHT ANKLE: COMPARISON: 05/20/18 at 7:32 a.m. HISTORY: Reduction of ankle fracture dislocation. FINDINGS: Three views right ankle show a posterior splint which obscures the fine bony and soft tissue detail. There is unchanged alignment of the fractures of the distal fibula and medial malleolus. Subluxatio n of the tibiotalar joint is still present. The patient is status post amputation of the 4th toe. IMPRESSION: Fracture subluxation of the right ankle. POS: [facility]
[2018-05-20] MEDS ORDERED: traMADol HCl 50 MG TAB PO PRN (12:56)
[2018-05-20] MEDS ORDERED: Dextrose 50% Abboject 50 ML SYRINGE SLOW IVP PRN (12:57)
[2018-05-20] MEDS ORDERED: Dextrose 5% in Water 1,000 ML IV PRN (12:57)
[2018-05-20] MEDS ORDERED: Ondansetron ODT 4 MG TAB PO PRN (12:57)
[2018-05-20] MEDS ORDERED: diphenhydrAMINE 50 MG CAP PO PRN (13:02)
[2018-05-20] MEDS ORDERED: Polyethylene Glycol OPTH DROP 15 ML BOT EA EYE PRN (13:02)
[2018-05-20] MEDS ORDERED: SUMAtriptan Succinate 50 MG TAB PO PRN (13:02)
[2018-05-20] MEDS ORDERED: PROVENTIL INHALER 6.7 G (200 INHALATIONS) INH PRN (13:02)
[2018-05-20 13:12] LABS: #Eosinphils 0.2 thou/uL (0.0-0.7); #Monocytes 0.6 thou/uL (0.11-0.59); #Neutrophils 9.8 thou/uL (1.40-6.50); %Basophils 0.2 % (0.0-1.0); %Eosinophils 1.2 % (0.0-10.0); %Lymphocytes 15.9 % (21.0-51.0); %Monocytes 4.7 % (0.0-10.0); %Neutrophils 77.9 % (42.0-75.0); Hemoglobin 12.2 g/dL (12.0-16.0); Mean Corpuscular HGB CONC 35.9 g/dL (32.0-36.0); Mean Corpuscular Hemoglobin 30.1 pg (27.0-31.0); Mean Corpuscular Volume 83.9 fL (78.0-98.0); Mean Platelet Volume 7.6 fL (7.4-10.4); Platelet Count 215 thou/uL (130-400); RBC Distribution Width 12.7 % (11.5-14.5); Red Blood Cell (RBC) Count 4.07 mill/uL (4.20-5.40); White Blood Cell (WBC) Count 12.5 thou/uL (4.8-10.8)
[2018-05-20] MEDS ORDERED: Ketorolac Tromethamine 30 MG/ML VIAL ONE (13:21)
[2018-05-20 13:31] LABS: Anion Gap 13 mmol/L (10-20); BUN (Urea Nitrogen) 27 mg/dL (9.8-20.1); Calc. Creatinine Clearance 0 mL/min (70-130); Calcium 8.8 mg/dL (7.8-10.44); Carbon Dioxide 19 mmol/L (22-29); Chloride 111 mmol/L (98-107); Estimated GFR-MDRD 42; Glucose 149 mg/dL (70-105); Magnesium 1.6 mg/dL (1.6-2.6); Phosphorus 2.7 mg/dL (2.3-4.7); Potassium 5.3 mmol/L (3.5-5.1); Sodium 138 mmol/L (136-145)
[2018-05-20] MEDS ORDERED: Acetaminophen 500 MG TAB ONE (13:40)
--- NOTE | 2018-05-20 14:31 | RAD ---
THREE VIEWS OF THE RIGHT ANKLE: COMPARISON: 05/20/18 at 9:33 a.m. HISTORY: Post reduction. FINDINGS: Three views left ankle show an overlying splint which obscured fine bone and soft tissue detail. The re is improvement in the reduction of the previously seen fracture subluxation of the ankle. Fractur es are again visualized in the medial malleolus and distal fibula. The 4th toe has been resected. IMPRESSION: Reduction of subluxation of the right ankle. POS: [facility]
[2018-05-20 15:35] VITALS: BMI 38.1
--- NOTE | 2018-05-20 17:17 | HP ---
DATE OF ADMISSION: 05/20/2018 ATTENDING PHYSICIAN: Dr. Vaughan. TRAUMA ACTIVATION: Level 2. HISTORY OF PRESENT ILLNESS: This is a 52-year-old female who presented to [facility] status post fall with right ankle pain. The patient was seen and evaluated in the emergency room and found to cook ve a right ankle fracture. Orthopedic Surgery was notified secondary to difficulty reducing the ankl e fracture. The patient has a history of recent hospitalization for a diabetic foot ulcer which is s till in the stages of healing on the injured ankle and foot. Because of this, Orthopedic Surgery is planning for delayed intervention to the injury; however, patient was unable to mobilize adequately a nd pain was uncontrolled; therefore, Trauma Services was asked to admit. Upon my evaluation, the pat linh has a chief complaint of right lower extremity pain. She is awaiting a second attempt at reduct ion of her injury by Orthopedic Surgery at this time. ALLERGIES: CEFUROXIME, CODEINE, DULOXETINE, PENICILLIN, AMOXICILLIN, AMPICILLIN, FISH CONTAINING PRO DUCTS, SHELLFISH, SULFA ANTIBIOTICS, and GABAPENTIN. HOME MEDICATIONS: Include metformin 1000 mg p.o. daily, glipizide 5 mg p.o. daily, Januvia 100 mg p. o. daily, Nexium 40 mg p.o. daily, furosemide 40 mg daily, lisinopril 10 mg daily, potassium chloride 10 mEq p.o. at bedtime, rosuvastatin 40 mg p.o. at bedtime, Remeron, mirtazapine 15 mg at bedtime, Z oloft 250 mg at bedtime, Zofran 8 mg p.r.n., Flonase b.i.d., Imitrex 100 mg p.r.n., Qvar 18g/80 mcg b .i.d., Proventil 2 puffs p.r.n., albuterol/ipratropium bromide 0.5 mg/3 mg p.r.n., melatonin 10 mg at bedtime, vitamin D p.o. daily, simethicone 125 mg p.r.n., Benadryl p.r.n., ibuprofen p.r.n., and eye drops b.i.d. CHRONIC MEDICAL ILLNESSES: Include rheumatoid arthritis, fibromyalgia, lupus, psoriatic arthritis, s evere major depression disorder, glaucoma, cataracts, sleep apnea, type 2 diabetes, diabetic neuropat hy, carpal tunnel syndrome, history of trigger thumb and hammertoes, acid reflux, migraines, hyperlip idemia, hypertension, anxiety, asthma, and celiac disease. PAST SURGICAL HISTORY: Significant for tonsillectomy, adenoid removal, exploratory laparotomy in , tubal ligation in 1981, deviated septum repair in 1985, hysterectomy in the , cholecystectomy , fifth right metatarsal amputation, multiple surgical interventions for diabetic foot ulcer in March 29. SOCIAL HISTORY: The patient ambulates with the use of a walker and sometimes a cane occasionally has to use a wheelchair. She has a prior history of tobacco use, approximately 24-[id number] history. D enies alcohol or illicit drug use. FAMILY HISTORY: Significant for type 2 diabetes and heart disease. REVIEW OF SYSTEMS: A 10 point review of systems was obtained and essentially negative except as paige cated in the HPI. PHYSICAL EXAMINATION: VITAL SIGNS: Most recent vital signs include blood pressure 139/87, pulse 104, respiration rate 18, temperature 99.7, O2 sat 94% on room air. GENERAL: Resting in bed, in no acute distress. HEAD: Normocephalic, atraumatic. EYES: Pupils are PERRL. Extraocular movements are intact. NECK: Supple. Trachea is midline. There is no midline tenderness to palpation. PULMONARY: Chest is atraumatic. Work of breathing. Symmetric rise. CARDIOVASCULAR: Regular rate and rhythm. GASTROINTESTINAL: Soft, nontender, nondistended. MUSCULOSKELETAL: Right lower extremity with medial bruising and swelling. Range of motion is limite d secondary to pain. Right fifth metatarsal surgically removed. There is still erythema from healin g past wounds. Other extremities within normal limits. NEUROLOGIC: GCS is 15. No focal deficit is noted. The patient is somewhat drowsy from previous sed ation. LABORATORY DATA: Pending. RADIOGRAPHIC FINDINGS: X-ray of the pelvis was negative for acute fracture or dislocation. X-ray of the femur was negative for acute fracture or dislocation. X-ray of the right ankle was significant for a right ankle fracture. First post-reduction films were unchanged. ASSESSMENT: 1. Status post mechanical fall. 2. Right ankle fracture. 3. Acute traumatic pain. 4. History of limited mobility and debility. 5. History of chronic pain. 6. History of fibromyalgia. 7. History of depression. 8. History of hypertension. 9. History of type 2 diabetes. 10. History of right ankle diabetic ulcer with delayed healing. 11. History of migraine headaches. 12. History of sleep apnea. PLAN: Orthopedic Surgery is planning for an attempted a repeat attempt reduction in the emergency ro om. The patient will be seen and evaluated by physical therapy. Pain controlled via p.o. analgesics . Once the patient's pain is controlled and mobile, she will be stable for discharge and eventual bah rgical intervention to her ankle to be determined by Orthopedic Surgery. We will reconcile home medi cations and continue as appropriate. Plan for admission was discussed with the patient and family wh o vocalized understanding. The patient will be discussed with Dr. Vaughan after this dictation. Furt her plans to follow at that time.
[2018-05-20] MEDS: Acetaminophen 500 MG TAB PO SCH ×2 (18:45→23:28)
[2018-05-20] MEDS: traMADol HCl 50 MG TAB PO SCH ×2 (18:53→23:28)
[2018-05-20] MEDS: Mometasone 100 MCG HFA INHALER INH SCH (21:26)
[2018-05-20] MEDS: Famotidine 20 MG TAB PO SCH (21:35)
[2018-05-20] MEDS: Fluticasone Propionate Nasal Spray 16 gm Bottle NASAL SCH (21:36)
[2018-05-20] MEDS: Mirtazapine 15 MG TAB PO SCH (21:37)
[2018-05-20] MEDS: Rosuvastatin 20 MG TAB PO SCH (21:37)
--- NOTE | 2018-05-20 21:38 | PRG ---
DATE OF SERVICE: 05/20/2018 Tony Avery had fallen, fractured right ankle. She is known to me from prior diabetic foot ulcer car e. I agree with assessment and plan and evaluation and plan per Luiza Norman PA-C.
[2018-05-20] MEDS ORDERED: Melatonin 3 MG TAB PO SCH (22:00)
--- NOTE | 2018-05-21 02:00 | CON ---
DATE OF CONSULTATION: 05/20/2018 HISTORY OF PRESENT ILLNESS: Ms. Avery is a pleasant, 52-year-old female, who presents after standing from a ground level fall. I was consulted by ER because of reducible right bimalleolar ankle fracture. The patient has a history of recent amputation, has been followed by wound care with IV antibiotics for her right fourth ray and right fourth metacarpal heel ulcer secondary to diabetes. The patient is currently in bed, unresponsive, and pain controlled. PAST MEDICAL HISTORY: Includes rheumatoid arthritis, fibromyalgia, lupus, chronic arthritis, major depression, glaucoma, cataracts, sleep apnea, type 2 diabetes, diabetic neuropathy, carpal tunnel, trigger finger, hammertoes, migraines, hypertension, anxiety, asthma, celiac disease. PAST SURGICAL HISTORY: Tonsillectomy, adenoids, nasal surgery, exploratory laparotomy, tubal ligation, deviated septum, hysterectomy, cholecystectomy, amputation right fifth ray. ALLERGIES: FISH, SHRIMP, and CRAB. MEDICAL ALLERGIES: BACTRIM, CYMBALTA, AMPICILLIN, AMOXICILLIN, PENICILLIN, CODEINE, VICODIN, CEFTIN, LIPITOR, LYRICA, GABAPENTIN. MEDICATIONS: Metformin, glipizide, Januvia, Nexium, furosemide, lisinopril, potassium, pravastatin, Remeron, Zoloft, sertraline, ondansetron, fluticasone, Imitrex, Proventil, ipratropium bromide, albuterol, melatonin, vitamin D, Benadryl, ibuprofen, eyedrops. SOCIAL HISTORY: Quit smoking 8 years ago. The patient is a household ambulator , lives at home. Her daughter and friend are at bedside. She is unemployed. PHYSICAL EXAMINATION: VITAL SIGNS: The patient is afebrile, hypertensive, tachycardic. GENERAL: Alert and oriented female, in no acute distress. EXTREMITIES: Right lower extremity showed a dislocated subluxed bimalleolar ankle fracture with soft tissue medial skin tenting. The patient has sensation intact. She has a healed and stage of healing fourth ray. She is able to flex and extend her toes. She has some decreased sensation. The patient has stable knee on exam. The patient's medial wound is about 2.5 cm of tenting skin from the pressure of the fracture dislocation. LABORATORY AND X-RAY FINDINGS: X-rays show a bimalleolar ankle fracture completely fracture dislocation. First primary reduction x-ray showed incomplete reduction. Now post-reduction films show an approximation of the medial malleolus and lateral malleolus with a reduced talus under the tibia. IMPRESSION: Fracture dislocation bimalleolar ankle fracture, right lower extremity and diabetic neuropathic patient with history of a fifth ray amputation along with multiple medical problems. ASSESSMENT AND PLAN: The patient underwent a closed reduction of her right ankle by me today with a L and U-splint. The patient had difficulty with reduction because of the lack of relaxation and was actively fighting with the reduction for concern of having to put it completely asleep given the patient's sleep apnea issues and asthma. The patient's x-rays look good. I discussed with the family that this is a very difficult situation given her diabetes, her poor health or ambulatory status. The position of the ankle and the skin, I am concerned about it. Progressing to open an open fracture, therefore, I would like to splint her for a period of time along with soft tissue rest and come back in a delayed fashion for the percutaneous or open reduction. I discussed with the family. At this time, she still has increased risk of loss of limb, complications include infection, failure of fixation and decreased ambulatory status. The patient was admitted for trauma because she will not be able to likely mobilize and will need help with transfers. We will reassess that tomorrow with physical therapy. PEREZ
[2018-05-21] MEDS: Acetaminophen 500 MG TAB PO SCH ×4 (05:38→23:29)
[2018-05-21] MEDS: traMADol HCl 50 MG TAB PO SCH ×4 (05:38→23:29)
[2018-05-21 06:05] LABS: Anion Gap 12 mmol/L (10-20); BUN (Urea Nitrogen) 25 mg/dL (9.8-20.1); Calc. Creatinine Clearance 66 mL/min (70-130); Calcium 9.5 mg/dL (7.8-10.44); Carbon Dioxide 25 mmol/L (22-29); Chloride 107 mmol/L (98-107); Estimated GFR-MDRD 39; Glucose 148 mg/dL (70-105); Magnesium 1.9 mg/dL (1.6-2.6); Phosphorus 3.5 mg/dL (2.3-4.7); Potassium 4.9 mmol/L (3.5-5.1); Sodium 139 mmol/L (136-145)
[2018-05-21] MEDS: Mometasone 100 MCG HFA INHALER INH SCH ×2 (07:20→18:48)
[2018-05-21] MEDS: Famotidine 20 MG TAB PO SCH (09:09)
[2018-05-21] MEDS: Lisinopril 10 MG TAB PO SCH (09:09)
[2018-05-21] MEDS: Enoxaparin Sodium 40 MG/0.4 ML SYRINGE SC SCH (09:10)
[2018-05-21] MEDS: Fluticasone Propionate Nasal Spray 16 gm Bottle NASAL SCH ×2 (09:11→21:10)
[2018-05-21] MEDS: HumaLOG 300 UNITS/3 ML VIAL SC PRN ×3 (12:03→21:27)
--- NOTE | 2018-05-21 19:37 | PRG ---
DATE OF SERVICE: 05/21/2018 SUBJECTIVE: This is a 52-year-old female status post mechanical fall resulting in a right ankle frac ture. She was admitted for pain control, observation and physical therapy. The patient reports that pain has been relatively well controlled on the current regimen; however, when she worked with physi yusuf therapy this morning, she was unable to stand for longer than a few seconds at a time secondary t o weakness and limited mobility resulting from her ankle fracture. I have discussed this case with Tru Del Toro from Orthopedic Surgery and he recommended [facility] placement until she is a candid ate for surgical intervention to her injury. Upon my evaluation this morning, the patient vocalized no other complaint. OBJECTIVE: VITAL SIGNS: Temperature 98.3, pulse 79, respirations 16, O2 sat 98% on room air, blood pressure 110 /69. GENERAL: Obese female, in no acute distress, resting in bed. PULMONARY: Normal work of breathing. Symmetric rise. CARDIOVASCULAR: Regular rate and rhythm. GASTROINTESTINAL: Abdomen rotund, soft, nontender, nondistended. MUSCULOSKELETAL: Right lower extremity dressing clean, dry and intact. She is neurovascularly intac t distal to the side of her injury. Moves extremities x4. NEUROLOGIC: No focal deficit noted. ASSESSMENT: 1. Status post mechanical fall. 2. Right ankle fracture. 3. Acute traumatic pain. 4. Weakness and debility. 5. Healing diabetic foot ulcer. 6. History of chronic pain and fibromyalgia. 7. History of sleep apnea. 8. History of hypertension. 9. History of type 2 diabetes. PLAN: Continue pain regimen as ordered. Continue PT, OT. Dr. Del Toro plans to change the splint to [place]. We will need to discuss with case management disposition as the patient is unsafe to return home at this time. Supportive care as ordered. The patient was discussed with Trauma attending.
[2018-05-21] MEDS ORDERED: Ketorolac Tromethamine 30 MG/ML VIAL IVP SCH (20:45)
[2018-05-21] MEDS: Mirtazapine 15 MG TAB PO SCH (21:11)
[2018-05-21] MEDS: Melatonin 3 MG TAB PO SCH (21:11)
[2018-05-21] MEDS: Rosuvastatin 20 MG TAB PO SCH (21:11)
[2018-05-22] MEDS: Acetaminophen 500 MG TAB PO SCH ×4 (05:37→23:50)
[2018-05-22] MEDS: traMADol HCl 50 MG TAB PO SCH ×4 (05:37→23:51)
[2018-05-22 05:53] LABS: Anion Gap 13 mmol/L (10-20); BUN (Urea Nitrogen) 25 mg/dL (9.8-20.1); Calc. Creatinine Clearance 62 mL/min (70-130); Calcium 9.6 mg/dL (7.8-10.44); Carbon Dioxide 23 mmol/L (22-29); Chloride 107 mmol/L (98-107); Estimated GFR-MDRD 36; Glucose 133 mg/dL (70-105); Magnesium 1.7 mg/dL (1.6-2.6); Phosphorus 4.1 mg/dL (2.3-4.7); Potassium 4.7 mmol/L (3.5-5.1); Sodium 138 mmol/L (136-145)
[2018-05-22] MEDS: Mometasone 100 MCG HFA INHALER INH SCH ×2 (08:08→19:45)
[2018-05-22] MEDS: Lisinopril 10 MG TAB PO SCH (08:26)
[2018-05-22] MEDS: Enoxaparin Sodium 40 MG/0.4 ML SYRINGE SC SCH (08:26)
[2018-05-22] MEDS: Fluticasone Propionate Nasal Spray 16 gm Bottle NASAL SCH ×2 (08:26→21:50)
[2018-05-22] MEDS: Famotidine 20 MG TAB PO SCH (08:26)
[2018-05-22] MEDS ORDERED: hydrALAZINE 20 MG/ML VIAL SLOW IVP PRN (08:45)
--- NOTE | 2018-05-22 09:42 | OP ---
PREOPERATIVE DIAGNOSIS: Right bimalleolar ankle fracture, closed with medial skin tenting. POSTPROCEDURE DIAGNOSIS: Right bimalleolar ankle fracture, closed with medial skin tenting. PROCEDURE PERFORMED: Closed reduction, short leg splint of a right bimalleolar ankle fracture. STAFF: Yoel Del Toro M.D. SINGLE NEEDLE OPERATOR: None. ANESTHESIA: ER Doctor etomidate with nasal cannula. ESTIMATED BLOOD LOSS: None. COMPLICATIONS: None. IMPLANTS: None. HISTORY OF PRESENT ILLNESS: Ms. Avery is a 52-year-old female with a closed bimalleolar ankle fracture. The patient is diabetic with multiple medical problems, has an ulceration and previous ray amputation of the right foot and stages healing. The patient has a bimalleolar ankle fracture, which was unable to be reduced. I discussed with the patient and family the risks and benefits of closed reduction and splinting of the leg. I discussed that we would need to do this for soft tissue rest. If she fails, she would even require an ex- fix because of concern for soft tissue medially. I am concerned that if she might have infection, I may have to perform a procedure percutaneously to minimize soft tissue risk on the medial aspect and help with healing. I discussed risks and benefits of surgery to include pain, amputation, soft tissue damage needing soft tissue coverage. She understood these risks and benefits and elected to proceed. PROCEDURE IN DETAIL: Time out was performed designating the patient's right lower extremity as the operative site based on sight, consents, markings. Etomidate was pushed. The patient was not relaxed for the procedure, could not get her in a sedated state, so she continuously attempted to dislocate her ankle with her forceful contraction, cannot get her knee in a flexed position, but she continued to dislocate it. I had placed her in extension. We reduced the ankle into place. I rolled on 3 layers of cast padding. I ensured them a fiberglass splint was rolled over so no fiberglass was touching the skin, put the patient with a varus position with no point or finger contact, trying to keep pressure off any potential spots on the skin. We took post-reduction x- rays and she had a significant improvement in the alignment of her ankle, not complete reduction, but a significant improvement. I overall liked the alignment. She will have to be admitted for pain control as well as for mobility. The patient will need a plate fixation and potentially percutaneous fixation. PEREZ
[2018-05-22] MEDS: HumaLOG 300 UNITS/3 ML VIAL SC PRN ×2 (11:56→21:54)
--- NOTE | 2018-05-22 12:30 | PRG-2 ---
DATE OF SERVICE: 05/22/2018 SUBJECTIVE: A 52-year-old female status post mechanical fall resulting in right ankle fracture. The patient was admitted for pain control, observation and physical therapy. The patient has pain that is well controlled except for when she is up and ambulating. Dr. Del Toro of the Orthopedic Surgery recommends detention placement until she is a candidate for surgical intervention to her injury. The patient has a healing diabetic foot ulcer and also is uninsured. Counseled extensively this morning on the limitations of placement for the patient as she is unfunded however, case management is working on this issue. The patient has no other complaints this morning. OBJECTIVE: VITAL SIGNS: Temperature 99.0, pulse 77, blood pressure 112/75, respirations 16 , oxygen saturation 96% on room air. GENERAL: Obese female in no acute distress, resting in bed. RESPIRATORY: Normal work of breathing. Symmetric rise. CARDIOVASCULAR: Regular rate and rhythm, no murmurs. GASTROINTESTINAL: Abdomen is soft, nontender, nondistended. MUSCULOSKELETAL: The right lower extremity dressing clean, dry and intact. Moves extremities x4. NEUROLOGIC: GCS is 15. No focal deficits noted. LABORATORY EVALUATION: Sodium 138, Potassium 4.7, Chloride 107, BUN 25, Creatinine 1.50, Glucose 133, Phosphorus 4.1, Magnesium 1.7 ASSESSMENT: 1. Status post mechanical fall. 2. Right ankle fracture. 3. Acute traumatic pain. 4. Weakness and debility. 5. Healing diabetic foot ulcer. 6. History of chronic pain and fibromyalgia. 7. History of sleep apnea. 8. History of hypertension. 9. History of type 2 diabetes. PLAN: We will continue current regimen. Continue current plan of care. We will continue PT and OT. Her splint was to be changed this morning by Orthopedic Surgery. Case management has been consulted for finding placement for this patient as it has been determined that she will not be successful going home at this time. Continue all other supportive care. This patient was seen and evaluated with the trauma attending, Dr. Pruitt, who is in agreement with this plan. PEREZ
[2018-05-22] MEDS: Rosuvastatin 20 MG TAB PO SCH (21:48)
[2018-05-22] MEDS: Melatonin 3 MG TAB PO SCH (21:50)
[2018-05-22] MEDS: Mirtazapine 15 MG TAB PO SCH (21:50)
[2018-05-23] MEDS: Acetaminophen 500 MG TAB PO SCH ×4 (05:39→23:38)
[2018-05-23] MEDS: traMADol HCl 50 MG TAB PO SCH ×4 (05:39→23:37)
[2018-05-23] MEDS: Mometasone 100 MCG HFA INHALER INH SCH ×2 (06:58→18:38)
[2018-05-23] MEDS: Enoxaparin Sodium 40 MG/0.4 ML SYRINGE SC SCH (08:39)
[2018-05-23] MEDS: Famotidine 20 MG TAB PO SCH (08:42)
[2018-05-23] MEDS: Fluticasone Propionate Nasal Spray 16 gm Bottle NASAL SCH ×2 (08:42→22:14)
[2018-05-23] MEDS ORDERED: Diazepam 10 MG/2 ML SYRINGE IVP SCH (09:30)
--- NOTE | 2018-05-23 11:57 | RAD ---
TWO VIEWS RIGHT ANKLE: History: Status post reduction. Comparison: 05-20-18 FINDINGS: AP and lateral views obtained and demonstrate a transverse fracture which is displaced of the medial malleolus. There is also fracture in the distal right fibula in the lateral malleolus. The lateral ma lleolar fracture is oblique. There is lateral displacement of the talus of the tibiotalar joint. IMPRESSION: Displaced right ankle with medial and lateral malleolar fractures with lateral displacement of the ta perez. POS: [facility]
--- NOTE | 2018-05-23 11:57 | CON ---
DATE OF CONSULTATION: 05/23/2018 HISTORY OF PRESENT ILLNESS: Ms. vAery is a 52-year-old female. I close reduced her ankle in the ER on the . Today I was attempting splint exchanges. I was concerned, I needed to look at the ventura ent's medial soft tissue. She states that the splint was loose. The patient underwent an attempt at closed reduction. She was having spasms in her quad and hamstrings as well as her peroneals. It wa s difficult to manage the reduction, even with her attempting to relax. The patient had x-rays were taken afterwards. PHYSICAL EXAMINATION: GENERAL: Alert, in no acute distress. EXTREMITIES: Right lower extremity neurovascularly intact, brisk cap refill. Tenderness medially. The medial soft tissue skin has some blanching and redness. There are no openings. The patient has damage of the stretch of the spike of her medial tibia. X-rays show mild reduced bimalleolar ankle fracture. ASSESSMENT AND PLAN: I am going to make the patient currently n.p.o. and take her for just a closed reduction in the OR. I have do not been able to have the patient stabilized in the ER or here on the floor because of her spasm. Therefore, I need her to be asleep and relaxed. The plan will be for a splint because she still has too much soft tissue swelling. I am also still concerned about the med ial soft tissue. She ultimately will need to have the ankle fixed, but I am concerned about the woun d medially dehiscing if I fix the ankle at this point. I want to give her some more soft tissue rest and plan to do it in a delayed fashion. We will keep her in a splint until of next week an d then plan definitive fixation at that time. I feel she already has a diabetic ulcer on that right foot and I feel that if she creates another asiya betic ulcer, it may never heal ultimately and lead to the patient having a below knee amputation.
--- NOTE | 2018-05-23 12:10 | PRG-2 ---
DATE OF SERVICE: 05/23/2018 SUBJECTIVE: A 52-year-old female status post mechanical fall resulting in right ankle fracture. Dr. Del Toro with Orthopedic Surgery resplinted the fracture this morning. The patient denies any acute pain. States that she has been able to get up and ambulate; however, still does get pain when puttin g weight on the foot. Case management has been working on placement; however, with the unfunded stat us no progress has been made on that issue. The patient has no other complaints this morning. OBJECTIVE: VITAL SIGNS: Temperature 98.4, pulse 71, respiration rate 16. Oxygen saturation 96% on room air, bl ood pressure 130/53. GENERAL: Obese female in no acute distress, resting in bed. RESPIRATORY: Normal work of breathing. Clear to auscultation bilaterally. No wheezing. CARDIOVASCULAR: Regular rate and rhythm, no murmurs. GASTROINTESTINAL: Abdomen is soft, nontender, nondistended. No masses. MUSCULOSKELETAL: Right lower extremity dressing is clean, dry and intact. It is also placed in a sp lint. She moves all extremities x4. NEUROLOGIC: GCS is 15. No focal deficits noted. ASSESSMENT: 1. Status post mechanical fall. 2. Right ankle fracture. 3. Acute traumatic pain. 4. Weakness and debility. 5. Healing diabetic foot ulcer. 6. History of chronic pain and fibromyalgia. 7. History of sleep apnea. 8. History of hypertension. 9. History of type 2 diabetes. PLAN: We will continue current regimen and current plan of care. She will continue with PT and OT. As a splint was placed this morning, had repeat x-ray and will defer all other management to Orthope dic Surgery, Dr. Del Toro. Case management has requested that the patient become inpatient status, th at should help to being successful with placement into a assisted facility for rehabilitation. All other supportive measures will be continued as well as treating her chronic illnesses. This patient was seen and evaluated with trauma attending, Dr. Pruitt, who was in agreement with this plan.
[2018-05-23] MEDS ORDERED: Fentanyl 100 MCG/2 ML VIAL ONE ×2 (12:20→13:22)
[2018-05-23] MEDS ORDERED: Dexamethasone 20 MG/5 ML VIAL ONE (13:20)
[2018-05-23] MEDS ORDERED: PROPOFOL 200 MG/20 ML VIAL ONE ×2 (13:20)
[2018-05-23] MEDS ORDERED: Lidocaine 1% PF 5 ML VIAL ONE (13:20)
[2018-05-23] MEDS ORDERED: Succinylcholine Chloride 20 MG/ML 10 ml SYRINGE FS ONE (13:20)
--- NOTE | 2018-05-23 14:54 | RAD ---
2 VIEWS RIGHT ANKLE: Date: 05/23/18 Time: 1245 hours COMPARISON: 05/23/18 at 0959 hours. HISTORY: Closed reduction of the right ankle. FINDINGS: The patient is imaged in a cast. This limits osseous detail. There is an obliquely oriented distal le ft fibular fracture/lateral malleolar fracture, demonstrating 5-6 mm of dorsal displacement on the la teral view. Osseous detail is quite limited on frontal imaging secondary to the casting material. It is difficult to visualize a transverse fracture at the level of the base of the medial malleolus seen on prior imaging. The obliquely oriented fracture of the distal fibula is again seen with a similar degree of lateral displacement, estimated in the 5.0 mm range. IMPRESSION: Limited assessment of the known medial and lateral malleolar fractures. POS: [facility]
[2018-05-23] MEDS: HumaLOG 300 UNITS/3 ML VIAL SC PRN ×2 (19:07→22:21)
[2018-05-23] MEDS ORDERED: pyridOXINE 50 MG (B6) TAB PO SCH (21:30)
[2018-05-23] MEDS: Rosuvastatin 20 MG TAB PO SCH (22:09)
[2018-05-23] MEDS: Mirtazapine 15 MG TAB PO SCH (22:13)
[2018-05-23] MEDS: Melatonin 3 MG TAB PO SCH (22:14)
--- NOTE | 2018-05-24 01:48 | OP ---
PREOPERATIVE DIAGNOSIS: Right bimalleolar ankle fracture. POSTOPERATIVE DIAGNOSIS: Right bimalleolar ankle fracture, fracture dislocation. STAFF: Yoel Del Toro M.D. ONCOLOGY PATIENT NAVIGATOR: Quique Stephenson PA-C ANESTHESIA: Brody. The patient received general endotracheal intubation. ESTIMATED BLOOD LOSS: None. TOURNIQUET TIME: None. IMPLANTS: None. ANTIBIOTICS: None. PROCEDURE PERFORMED: Application of short leg splint. HISTORY OF PRESENT ILLNESS: Mr. Avery is a 52-year-old female with multiple medical problems to incl ude diabetes, history of fifth ray amputation, rheumatoid arthritis, osteopenia, deconditioning, who presents with a right ankle fracture dislocation. The patient's splint was taken down today and chec k on her medial soft tissue skin. The patient's skin had some blanching, did not show any erythema, did not show any open wounds. We elected to go to re-splint her because of concerns for pressure fro m the fiberglass on her frail skin and upon doing this, patient's post-reduction films showed a dislo cated again and emergently taken to OR for a closed reduction. Upon visualization of the skin, she h ad some abrasions at old area of skin sloughing, but no full-thickness tears in the skin. I discusse d with the family the patient's risks and benefits of splinting to include pain, scar, bleeding, infe ction, damage to vital structures, decreased range of motion or strength, need for further surgeries, fusion, amputation and ultimate definitive fixation with either Steinmann pin fixation with plates a nd screws versus even potentially future transfixion fusion nail. The patient and family understand these risks and benefits and elected to proceed. PROCEDURE NOTE: Timeout was performed, the patient's right ankle splint was removed. We placed cast padding reduce it under static live x-rays. We put on 10 sheets of plaster splints which were well- molded splint to keep the ankle reduced. We then applied a fiberglass splint to ensure that we had e xtra stability, mediolateral stability without overwrapped with an Luther wrap. We held in reduction lazaro morgan live shots and share on AP and lateral that was reduced. We then x-rayed the patient. The ventura ent will be discharged, will need follow up on for evaluation of her skin, at which time eit her I will place a Steinmann pin in her ankle which will stay until she completely scars and heals th e ankle versus a complete fusion or at that time, I will consider placing an operative fixation of th e patient's ankle with a Steinmann pin and we will continue to follow up with the patient in house.
[2018-05-24] MEDS: traMADol HCl 50 MG TAB PO SCH ×3 (05:26→18:08)
[2018-05-24] MEDS: Acetaminophen 500 MG TAB PO SCH ×3 (05:27→18:08)
[2018-05-24] MEDS: Mometasone 100 MCG HFA INHALER INH SCH ×2 (06:30→20:09)
[2018-05-24] MEDS: HumaLOG 300 UNITS/3 ML VIAL SC PRN (06:40)
[2018-05-24] MEDS: Senokot S 8.6-50 MG TAB PO SCH ×2 (09:47→20:44)
[2018-05-24] MEDS: Famotidine 20 MG TAB PO SCH (09:47)
[2018-05-24] MEDS: metFORMIN 500 MG TAB PO SCH ×2 (09:47→18:08)
[2018-05-24] MEDS: Potassium Chloride 10 MEQ TAB PO SCH (09:47)
[2018-05-24] MEDS: Ferrous Sulfate 325 MG TAB PO SCH ×2 (09:47→18:08)
[2018-05-24] MEDS: Furosemide 40 MG TAB PO SCH (09:47)
[2018-05-24] MEDS: Fluticasone Propionate Nasal Spray 16 gm Bottle NASAL SCH ×2 (09:48→20:41)
[2018-05-24] MEDS: Enoxaparin Sodium 40 MG/0.4 ML SYRINGE SC SCH (09:51)
[2018-05-24] MEDS: Polyethylene Glycol 3350 17 GM Packet PO SCH (09:51)
[2018-05-24] MEDS: Alogliptin 6.25 MG TAB PO SCH (10:07)
--- NOTE | 2018-05-24 11:24 | PRG-2 ---
DATE OF SERVICE: 05/24/2018 SUBJECTIVE: A 52-year-old female status post mechanical fall resulting in right ankle fracture. Dr. Del Toro with Orthopedic Surgery resplinted the fracture yesterday afternoon. Dr. Del Toro states susan t the patient is ready for discharge from the orthopedic standpoint. The patient denies any acute pa in at rest; however, during ambulation and in transferring to the chair she does note pain in her rig ht lower extremity. Case management is working on placement; however, the unfunded status still is c reating barriers. No other complaints this morning. OBJECTIVE: VITAL SIGNS: Temperature 97.9, pulse is 82, respirations 18, 94% on room air and BP was 133/84. GENERAL: Obese female in no acute distress, resting in bed. RESPIRATORY: Normal work of breathing. LUNGS: Clear to auscultation bilaterally. No wheezing. CARDIOVASCULAR: Regular rate and rhythm, no murmurs. GASTROINTESTINAL: Abdomen is soft, nontender, nondistended. No masses. MUSCULOSKELETAL: Right lower extremity dressing is clean, dry, and intact in the splint. She moves all 4 extremities. NEUROLOGIC: GCS 15. No focal deficits noted. ASSESSMENT: 1. Status post mechanical fall. 2. Right ankle fracture, post-injury day #4. 3. Acute traumatic pain. 4. Weakness and debility. 5. Healing diabetic foot ulcer. 6. History of chronic pain and fibromyalgia. 7. History of sleep apnea. 8. History of hypertension. 9. History of type 2 diabetes. PLAN: We will continue current regimen and current plan of care. She will continue to work with PT and OT. A splint was replaced yesterday morning with repeat x-rays and per Dr. Del Toro, the patient is stable for discharge from an orthopedic standpoint. Case management has sent a choice letter off to [facility] for placement and we will await those findings. Her diabetic home medicine s were started last night with a slight increase in her glucose levels over the past 24 hours. We wi ll continue to trend those with restarting of her medications. All other supportive measures will be continued as well as treating her chronic illnesses. All of her questions were answered at this rosie e of dictation. This patient was seen and evaluated with the trauma attending, Dr. Pruitt, who is in agreement with is plan.
[2018-05-24] MEDS: Melatonin 3 MG TAB PO SCH (20:42)
[2018-05-24] MEDS: Mirtazapine 15 MG TAB PO SCH (20:43)
[2018-05-24] MEDS: Rosuvastatin 20 MG TAB PO SCH (20:44)
[2018-05-24] MEDS: pyridOXINE 50 MG (B6) TAB PO SCH (20:44)
[2018-05-24] MEDS ORDERED: Melatonin 3 MG TAB PO SCH (21:00)
[2018-05-25] MEDS: traMADol HCl 50 MG TAB PO SCH ×5 (00:45→23:21)
[2018-05-25] MEDS: Acetaminophen 500 MG TAB PO SCH ×5 (00:45→23:21)
[2018-05-25] MEDS: Mometasone 100 MCG HFA INHALER INH SCH ×2 (07:13→19:34)
[2018-05-25] MEDS: Senokot S 8.6-50 MG TAB PO SCH ×3 (08:14→21:57)
[2018-05-25] MEDS: Famotidine 20 MG TAB PO SCH (08:14)
[2018-05-25] MEDS: Furosemide 40 MG TAB PO SCH (08:14)
[2018-05-25] MEDS: metFORMIN 500 MG TAB PO SCH ×2 (08:14→16:32)
[2018-05-25] MEDS: Ferrous Sulfate 325 MG TAB PO SCH ×2 (08:14→16:32)
[2018-05-25] MEDS: Polyethylene Glycol 3350 17 GM Packet PO SCH ×2 (08:15→08:19)
[2018-05-25] MEDS: Enoxaparin Sodium 40 MG/0.4 ML SYRINGE SC SCH (08:15)
[2018-05-25] MEDS: Potassium Chloride 10 MEQ TAB PO SCH (08:15)
[2018-05-25] MEDS: Fluticasone Propionate Nasal Spray 16 gm Bottle NASAL SCH ×2 (08:17→21:54)
[2018-05-25 10:12] LABS: #Eosinphils 0.2 thou/uL (0.0-0.7); #Lymphocytes 1.5 thou/uL (1.20-3.40); #Monocytes 0.8 thou/uL (0.11-0.59); #Neutrophils 8.8 thou/uL (1.40-6.50); %Basophils 0.2 % (0.0-1.0); %Eosinophils 2.1 % (0.0-10.0); %Lymphocytes 13.6 % (21.0-51.0); %Monocytes 6.7 % (0.0-10.0); %Neutrophils 77.4 % (42.0-75.0); Hemoglobin 10.4 g/dL (12.0-16.0); Mean Corpuscular HGB CONC 33.8 g/dL (32.0-36.0); Mean Corpuscular Volume 85.8 fL (78.0-98.0); Mean Platelet Volume 7.3 fL (7.4-10.4); Platelet Count 212 thou/uL (130-400); RBC Distribution Width 12.9 % (11.5-14.5); White Blood Cell (WBC) Count 11.3 thou/uL (4.8-10.8)
[2018-05-25] MEDS: Alogliptin 6.25 MG TAB PO SCH (10:12)
[2018-05-25] MEDS: HumaLOG 300 UNITS/3 ML VIAL SC PRN (11:14)
--- NOTE | 2018-05-25 12:17 | RAD ---
RIGHT ANKLE TWO VIEWS: HISTORY: Ankle fracture. Followup. COMPARISON: 05/23/2018 FINDINGS: Overlying fiberglass splint obscures detail. Two-thirds shaft width lateral displacement and one-isabelle f shaft width posterior displacement of the lateral malleolus, in relation to the distal femoral shaf t, with minimal overriding of fragments, has increased slight since the prior study. Lateral disloca tion of the talus is also more pronounced, estimated at 50%. Degenerative changes of the hindfoot ar e apparent. IMPRESSION: Interval worsening of malalignment of the right ankle fracture/dislocation. POS: [facility]
--- NOTE | 2018-05-25 12:41 | CON ---
DATE OF CONSULTATION: 05/25/2018 HISTORY OF PRESENT ILLNESS: Ms. Avery is a 52-year-old female status post 2 closed reductions of her ankle. The patient had repeat films today which shows that she has subluxed her ankle again. PHYSICAL EXAMINATION: General, alert and oriented, no acute distress. Sensation unchanged, cap refill, splint clean, dry, and intact. LABORATORY AND X-RAY FINDINGS: Radiographs show subluxed talus fracture dislocation, appears to be bimall fx. ASSESSMENT AND PLAN: The plan will be the patient has failed splinting. I am still concerned about the skin. I do not feel the patient could undergo definitive fixation at this time. The plan will be to place a calcaneal Steinmann pin from the calcaneus through the talus into her tibia. Potentially, have to place on the fibula for stabilization and place them under the skin, close the skin, place her in a splint, give her soft tissue a rest, come back in a delayed fashion. Either this will be definitive treatment or I may come back in delayed fashion and try percutaneous fixation after soft tissues have healed. I discussed with the patient this. We will make her n.p.o. now. She last had breakfast. PEREZ
[2018-05-25] MEDS ORDERED: PROPOFOL 200 MG/20 ML VIAL ONE (15:46)
--- NOTE | 2018-05-25 16:42 | PRG-2 ---
DATE OF SERVICE: 05/25/2018 SUBJECTIVE: A 52-year-old female status post mechanical fall resultant right ankle fracture. The pa tient has shown that she will fail splinting therapy as her fracture continues to be unstable and con tinues to dislocate during stenting. Dr. Del Toro with Orthopedic Surgery as planned to do a surgical intervention in a definite fixation with a Steinmann pin. The patient otherwise also developed a ri ght arm redness and erythema from an IV site. Otherwise, the patient does not complain of any pain a nd has no other complaints this morning. Case management is continuing to work on placement; however , no definitive placement has been determined yet. OBJECTIVE: VITAL SIGNS: Temperature 97.2, pulse was 88, respirations 18, oxygen saturation 98% on room air, blo od pressure is 102/55. GENERAL: Obese female, in no acute distress, resting in bed. RESPIRATORY: Normal work of breathing. LUNGS: Clear to auscultation bilaterally. No wheezing. CARDIOVASCULAR: Regular rate and rhythm. No murmurs. GASTROINTESTINAL: Abdomen is soft, nontender, nondistended. No masses. MUSCULOSKELETAL: Right lower extremity dressing is clean, dry, and intact, in a splint. She moves a ll four extremities. She has an area 8 x 20 cm on her right upper extremity surrounding an area of i nduration near an IV site. NEUROLOGIC: GCS 15. A&O x4. No focal deficits noted. ASSESSMENT: 1. Status post mechanical fall. 2. Right ankle fracture post-injury day #5. 3. Acute traumatic pain. 4. Weakness and debility. 5. Healing diabetic foot ulcer. 6. Right upper extremity cellulitis. 7. History of chronic pain. 8. Fibromyalgia. 9. History of sleep apnea. 10. History of hypertension. 11. History of type 2 diabetes. PLAN: We will continue current regimen and plan of care deferring to Orthopedic recommendations. Th e patient is to go for definitive fixation later today. Dr. Del Toro has placed her as an n.p.o. stat us in preparation of surgery. The patient will also be started on clindamycin IV for antibiotic ther apy for her right upper extremity cellulitis in light of her allergies. The patient's case managemen t continues to work on placement; however, at this point, they are opting to keep the patient in the hospital until she is able to ambulate on her own and safe for discharge home. All other supportive measures will be continued as well as treating her chronic illnesses. All of her questions are answe red at the time of this dictation. The patient was seen and evaluated previously by Dr. Pruitt, the t rauma attending. He is in agreement with this plan.
[2018-05-25] MEDS ORDERED: Fentanyl 100 MCG/2 ML VIAL ONE ×2 (17:57→18:09)
[2018-05-25] MEDS ORDERED: Ketamine 50 MG/ML VIAL ONE (18:09)
[2018-05-25] MEDS ORDERED: Midazolam HCl 2 mg/2 ml Vial ONE (18:13)
[2018-05-25] MEDS ORDERED: Meperidine HCl/PF 25 MG/ML VIAL SLOW IVP PRN (19:47)
[2018-05-25] MEDS ORDERED: Ondansetron HCl/PF 4 MG/2 ML Vial IVP PRN (19:47)
[2018-05-25] MEDS: Melatonin 3 MG TAB PO SCH (21:54)
[2018-05-25] MEDS: Mirtazapine 15 MG TAB PO SCH (21:55)
[2018-05-25] MEDS: pyridOXINE 50 MG (B6) TAB PO SCH (21:56)
[2018-05-25] MEDS: Rosuvastatin 20 MG TAB PO SCH (21:57)
[2018-05-25] MEDS ORDERED: Clindamycin/D5W 600 MG in Premix Bag 1 BAG IVPB SCH (22:00)
--- NOTE | 2018-05-25 22:25 | RAD ---
RADIOGRAPH RIGHT ANKLE 2 VIEWS: DATE: 05/25/18 TIME: 6:30 p.m. HISTORY: 52-year-old female with acute, traumatic fracture-subluxations of the ankle. COMPARISON: 05/23/18. FINDINGS: A total of five fluoroscopic small field of view spot images obtained with C-arm in the OR. The sublu xation of the tibiotalar joint has been reduced, and fixated with a long vertical metallic augustus which enters the plantar aspect of the calcaneus, traverses the talus and tibiotalar joint, with distal tip at the junction between the proximal and distal thirds of the tibial diaphysis. There is no major in terval change in the alignment of the laterally displaced distal fragment of the lateral malleolar fr acture. IMPRESSION: Arthrodesis of the tibiotalar joint with a long metallic augustus, fixating the fracture-subluxation of th e ankle. POS: [facility]
[2018-05-26] MEDS: Clindamycin/D5W 600 MG in Premix Bag 1 BAG IVPB SCH ×3 (02:27→17:08)
--- NOTE | 2018-05-26 03:57 | OP ---
DATE OF PROCEDURE: 05/25/2018 PREOPERATIVE DIAGNOSIS: Fracture dislocation, right ankle bimalleolar ankle fracture. POSTOPERATIVE DIAGNOSIS: Fracture dislocation, right ankle bimalleolar ankle fracture. PROCEDURES PERFORMED: 1. Right transcalcaneal, transtalar, transtibial pin fixation for ankle stabilization. 2. Application of short leg splint. STAFF: Yoel Del Toro M.D. ANESTHESIA: Kat Samuel M.D. The patient received an LMA. ESTIMATED BLOOD LOSS: 30 mL. TOURNIQUET TIME: None. IMPLANTS: 02/10 K-wire. ANTIBIOTICS: The patient received clindamycin 600. COMPLICATIONS: None. HISTORY OF PRESENT ILLNESS: Ms. Lima is a 52-year-old female who is a minimal household ambulator, stood and dislocated her right ankle, had a closed reduction on Tuesday. On evaluating her skin on Tuesday, the patient's ankle redislocated, we resplinted it and then was redislocated again. I then took the patient urgently to OR to splint it. The patient noted no issues yesterday , but noted increased swelling and pain on . Given this, I x-rayed her and showed she subluxed again and was concerned about the patient's medial soft tissues, I do not feel that her skin is ready for an operative fixation both given her diabetes, diabetic neuropathy, recently healed diabetic foot ulcer of a fifth ray amputation as well as the patient's poor bone quality. Given all this, I elected for discussing operative fixation of her right ankle to be a transcalcaneal, transtalar, transtibial Steinmann pin placement for fixation of the ankle in stable position. I discussed with the patient and the family the risks and benefits of the pin, the risks being a plantar ulceration that could not heal. I discussed that this might be definitive fixation, but I am currently concerned about placing an incision on the patient's ankle, concern for healing as well as any hardware placement. I discussed with the family that this is a complex problem. The patient given her current diabetes issues, current health has a high risk of even amputation of this limb. Discussed the risks and benefits of surgery, pain, scar, bleeding, infection, damage to vital structures, loss of life or limb, retained hardware, need for further surgery to remove it. Patient's family understands these risks and benefits and elected to proceed. PROCEDURE IN DETAIL: Time-out was performed, designating the patient's right lower extremity as the operative site based on sight, consents and marking. After timeout, the patient's right lower extremity was prepped and draped in sterile fashion. We took pictures of the ankle. There were some abrasions of the skin, but no exposed bone. I made an incision based off the AP and lateral x-rays using a Steinmann pin to visualize, where I first placed a calcaneal pin , made about a 3 cm incision down through the plantar pad and dissected down to the bone, I placed a single pass, which was a little bit to posterior and placed a second pass more anteriorly. I had to place the pin in the position that I wanted to get it to pass through the tibia. After I had passed in the tibia, I had a good medial reduction as well as anterior and posterior reduction. Fibula still a little bit off and the medial malleolus felt like pretty well reduced. I used a tamp to tamp the remainder of the cut end of the pin off. The pin was buried under the skin and was not palpable under the skin. I then sewed the pin shut with a 3-0 nylon. The pin will stay in place until likely potentially, so I definitively fix her versus staying in place for a total of 12 weeks, closed with nylon. The patient was placed in a short leg splint post-procedure. The patient will be admitted back to trauma, they are treating her right upper extremity cellulitis. She will remain in the splint. She will not to weight bear on this right side. She will need follow up for a splint exchange in a week. PEREZ
[2018-05-26] MEDS: Acetaminophen 500 MG TAB PO SCH ×3 (06:35→17:08)
[2018-05-26] MEDS: traMADol HCl 50 MG TAB PO SCH ×3 (06:35→17:08)
[2018-05-26] MEDS: Mometasone 100 MCG HFA INHALER INH SCH ×2 (07:36→19:32)
[2018-05-26] MEDS: metFORMIN 500 MG TAB PO SCH ×2 (08:11→16:45)
[2018-05-26] MEDS: Furosemide 40 MG TAB PO SCH (08:11)
[2018-05-26] MEDS: Ferrous Sulfate 325 MG TAB PO SCH ×2 (08:11→16:45)
[2018-05-26] MEDS: Potassium Chloride 10 MEQ TAB PO SCH (08:11)
[2018-05-26] MEDS: Famotidine 20 MG TAB PO SCH (08:11)
[2018-05-26] MEDS: Alogliptin 6.25 MG TAB PO SCH (08:11)
[2018-05-26] MEDS: Enoxaparin Sodium 40 MG/0.4 ML SYRINGE SC SCH (08:12)
[2018-05-26] MEDS: Polyethylene Glycol 3350 17 GM Packet PO SCH (08:12)
[2018-05-26] MEDS: Fluticasone Propionate Nasal Spray 16 gm Bottle NASAL SCH ×2 (08:12→21:21)
[2018-05-26] MEDS: Senokot S 8.6-50 MG TAB PO SCH ×2 (08:12→20:18)
[2018-05-26] MEDS: Ibuprofen 600 MG TAB PO SCH ×2 (13:55→21:20)
[2018-05-26] MEDS: Melatonin 3 MG TAB PO SCH (21:19)
[2018-05-26] MEDS: pyridOXINE 50 MG (B6) TAB PO SCH (21:19)
[2018-05-26] MEDS: Rosuvastatin 20 MG TAB PO SCH (21:19)
[2018-05-26] MEDS: Mirtazapine 15 MG TAB PO SCH (21:20)
[2018-05-27] MEDS: Acetaminophen 500 MG TAB PO SCH ×5 (00:51→22:00)
[2018-05-27] MEDS: traMADol HCl 50 MG TAB PO SCH ×5 (00:51→21:55)
--- NOTE | 2018-05-27 01:57 | PRG ---
DATE OF SERVICE: 05/26/2018 SUBJECTIVE: The patient is status post ground level fall in which she sustained a right ankle bimall eolar fracture dislocation, which she has undergone percutaneous transtibial pin fixation and applica tion of a short leg splint. The patient tolerated this procedure well and her splint is fitting comf ortably. The patient also was noted to have some cellulitis in the area of an IV site. The patient was started on clindamycin and the redness has markedly decreased and the pain also has markedly decr eased. The patient is tolerating a diet. Her pain is controlled and she has begun working with phys ical and occupational therapy. OBJECTIVE: VITAL SIGNS: Temperature is 99.7, heart rate 97, blood pressure 175/75, respirations 16, oxygen satu ration 95% on room air. GENERAL: The patient is resting comfortably in bed. She is awake, alert, and oriented x3. [place] coma scale is 15. HEENT: Unremarkable. LUNGS: Clear to auscultation bilaterally. HEART: Regular rate and rhythm. ABDOMEN: Soft, flat, nontender with active bowel sounds. EXTREMITIES: Neurovascularly intact x4. Postop dressing and splint is clean, dry, and intact. LABORATORY DATA: There are no labs or radiographs to review this morning. ASSESSMENT AND PLAN: 1. Status post mechanical fall. 2. Status post percutaneous pin fixation of a right ankle fracture dislocation. Plan will be to continue IV antibiotics for her cellulitis. We will reexamine it tomorrow. Continue supportive care, work with physical and occupational therapy, pain control, pulmonary toilet, gastri tis, mechanical DVT prophylaxis. The patient is also on Lovenox. We will start working towards anna miramontes also with her case management. The evaluation and examination were discussed with Dr. Pruitt morning.
[2018-05-27] MEDS: Clindamycin/D5W 600 MG in Premix Bag 1 BAG IVPB SCH ×3 (02:27→17:14)
[2018-05-27] MEDS: Ibuprofen 600 MG TAB PO SCH ×3 (06:54→22:02)
[2018-05-27] MEDS: Mometasone 100 MCG HFA INHALER INH SCH ×2 (07:15→20:02)
[2018-05-27] MEDS: Alogliptin 6.25 MG TAB PO SCH (09:47)
[2018-05-27] MEDS: Enoxaparin Sodium 40 MG/0.4 ML SYRINGE SC SCH (09:47)
[2018-05-27] MEDS: Famotidine 20 MG TAB PO SCH (09:48)
[2018-05-27] MEDS: metFORMIN 500 MG TAB PO SCH ×2 (09:48→17:14)
[2018-05-27] MEDS: Ferrous Sulfate 325 MG TAB PO SCH ×2 (09:48→17:14)
[2018-05-27] MEDS: Potassium Chloride 10 MEQ TAB PO SCH (09:49)
[2018-05-27] MEDS: Furosemide 40 MG TAB PO SCH (09:51)
[2018-05-27] MEDS: Fluticasone Propionate Nasal Spray 16 gm Bottle NASAL SCH ×2 (09:51→21:55)
[2018-05-27] MEDS: Senokot S 8.6-50 MG TAB PO SCH ×2 (09:57→20:39)
[2018-05-27] MEDS: Polyethylene Glycol 3350 17 GM Packet PO SCH (09:57)
[2018-05-27] MEDS ORDERED: ALPRAZolam 0.5 MG TAB PO SCH (18:45)
[2018-05-27] MEDS: Rosuvastatin 20 MG TAB PO SCH (21:55)
[2018-05-27] MEDS: Mirtazapine 15 MG TAB PO SCH (21:55)
[2018-05-27] MEDS: Melatonin 3 MG TAB PO SCH (22:00)
[2018-05-27] MEDS: pyridOXINE 50 MG (B6) TAB PO SCH (22:00)
--- NOTE | 2018-05-28 01:13 | PRG ---
DATE OF SERVICE: 05/27/2018 SUBJECTIVE: The patient is currently on the surgical floor. She is status post ground level fall in which she sustained a bimalleolar fracture dislocation of her right ankle. She has undergone percut aneous pinning of the same. She tolerated the procedure well. She has begun working with physical a nd occupational therapy. The patient is somewhat hesitant to work with physical therapy due to feeli ng not "coordinating enough" to balance being nonweightbearing on her affected ankle. Otherwise, she states her pain is controlled. She is tolerating a diet. PHYSICAL EXAMINATION: VITAL SIGNS: Temperature is 98.1, heart rate 82, blood pressure 180/75, respirations 16, oxygen satu ration 98% on room air. GENERAL: The patient is resting comfortably in bed. She is awake, alert, and oriented x3. [place] coma scale is 15. HEENT: Unremarkable. LUNGS: Clear to auscultation with good inspiratory and expiratory effort. HEART: Regular rate and rhythm. ABDOMEN: Soft, flat, nontender with active bowel sounds. EXTREMITIES: Neurovascularly intact x4. Postop splint and dressing is clean, dry, and intact. Righ t upper extremity shows decreasing redness around her right antecubital fossa primarily on the ulnar aspect. There is a central area that feels somewhat firm, but not fluctuant. We will keep a close e ye on this should we need I&D it. LABORATORY DATA: There are no labs or radiographs to review this morning. ASSESSMENT: 1. Status post fall. 2. Status post percutaneous pin fixation of right ankle fracture dislocation. 3. Cellulitis, right forearm, appears resolving. PLAN: Continue IV antibiotics. Reexamine tomorrow and possibly perform I&D. Otherwise, continue ph ysical and occupational therapy, and all supportive care.
[2018-05-28] MEDS: Clindamycin/D5W 600 MG in Premix Bag 1 BAG IVPB SCH ×3 (02:50→17:26)
[2018-05-28] MEDS: traMADol HCl 50 MG TAB PO SCH ×4 (03:59→20:48)
[2018-05-28] MEDS: Acetaminophen 500 MG TAB PO SCH ×4 (03:59→20:48)
[2018-05-28 04:33] LABS: #Eosinphils 0.4 thou/uL (0.0-0.7); #Lymphocytes 1.7 thou/uL (1.20-3.40); #Monocytes 0.7 thou/uL (0.11-0.59); #Neutrophils 5.7 thou/uL (1.40-6.50); %Basophils 0.3 % (0.0-1.0); %Eosinophils 5.1 % (0.0-10.0); %Lymphocytes 19.6 % (21.0-51.0); %Monocytes 8.1 % (0.0-10.0); %Neutrophils 66.9 % (42.0-75.0); Hemoglobin 9.6 g/dL (12.0-16.0); Mean Corpuscular HGB CONC 33.7 g/dL (32.0-36.0); Mean Corpuscular Hemoglobin 28.9 pg (27.0-31.0); Mean Corpuscular Volume 85.9 fL (78.0-98.0); Mean Platelet Volume 7.7 fL (7.4-10.4); Platelet Count 248 thou/uL (130-400); RBC Distribution Width 12.8 % (11.5-14.5); Red Blood Cell (RBC) Count 3.33 mill/uL (4.20-5.40); White Blood Cell (WBC) Count 8.6 thou/uL (4.8-10.8)
[2018-05-28 04:42] LABS: Anion Gap 13 mmol/L (10-20); BUN (Urea Nitrogen) 26 mg/dL (9.8-20.1); Calc. Creatinine Clearance 58 mL/min (70-130); Carbon Dioxide 25 mmol/L (22-29); Chloride 105 mmol/L (98-107); Estimated GFR-MDRD 33; Glucose 82 mg/dL (70-105); Magnesium 1.5 mg/dL (1.6-2.6); Phosphorus 3.6 mg/dL (2.3-4.7); Potassium 3.8 mmol/L (3.5-5.1); Sodium 139 mmol/L (136-145)
[2018-05-28] MEDS: Ibuprofen 600 MG TAB PO SCH ×3 (06:41→21:35)
[2018-05-28] MEDS: Mometasone 100 MCG HFA INHALER INH SCH ×2 (07:37→19:09)
[2018-05-28] MEDS: Ferrous Sulfate 325 MG TAB PO SCH ×2 (08:26→17:25)
[2018-05-28] MEDS: Potassium Chloride 10 MEQ TAB PO SCH (08:26)
[2018-05-28] MEDS: metFORMIN 500 MG TAB PO SCH ×2 (08:26→17:26)
[2018-05-28] MEDS: Famotidine 20 MG TAB PO SCH (08:27)
[2018-05-28] MEDS: Enoxaparin Sodium 40 MG/0.4 ML SYRINGE SC SCH (08:27)
[2018-05-28] MEDS: Alogliptin 6.25 MG TAB PO SCH (08:27)
[2018-05-28] MEDS: Furosemide 40 MG TAB PO SCH (08:28)
[2018-05-28] MEDS: Fluticasone Propionate Nasal Spray 16 gm Bottle NASAL SCH ×2 (08:28→21:36)
[2018-05-28] MEDS: Lisinopril 10 MG TAB PO SCH (08:29)
[2018-05-28] MEDS: Polyethylene Glycol 3350 17 GM Packet PO SCH (08:29)
[2018-05-28] MEDS: Senokot S 8.6-50 MG TAB PO SCH ×2 (08:30→20:52)
--- NOTE | 2018-05-28 15:01 | PRG ---
DATE OF SERVICE: 05/28/2018 SUBJECTIVE: The patient is status post ground level fall which sustained a right bimalleolar fractur e, for which she has subsequently undergone percutaneous pinning of the same. She has been working w [facility] physical and occupational therapy, albeit slowly due to her hesitance to ambulate with being nonw eightbearing on the right side. Otherwise, she is tolerating a diet and her pain is being controlled . The patient also is being treated for a superficial cellulitis of her right antecubital fossa area . OBJECTIVE: VITAL SIGNS: Temperature is 97.9, heart rate 81, blood pressure 126/78, respirations 14, and oxygen saturation 95% on room air. GENERAL: The patient is awake, alert, and oriented x3. Her [place] coma scale is 15. She is curren tly resting comfortably in bed, eating breakfast. HEENT: Unremarkable. LUNGS: Clear to auscultation with good inspiratory and expiratory effort. HEART: Regular rate and rhythm. ABDOMEN: Soft, flat, nontender with active bowel sounds. EXTREMITIES: Neurovascularly intact x4. Postop splint is clean, dry, and intact. Right upper extre mity has again continued decrease redness. There are some tenderness to palpation, but there does no t appear to be any fluctuance, only induration. ASSESSMENT AND PLAN: 1. Status post fall. 2. Status post percutaneous pin fixation of right ankle fracture dislocation. 3. Resolving cellulitis. Plan will be to continue antibiotics, continue physical and occupational therapy and await final plac ement decision. The patient's cellulitis area was examined with Dr. Sepulveda, who agrees that at this time there are no indications for an I and D.
[2018-05-28] MEDS: Rosuvastatin 20 MG TAB PO SCH (20:49)
[2018-05-28] MEDS: Mirtazapine 15 MG TAB PO SCH (20:50)
[2018-05-28] MEDS: pyridOXINE 50 MG (B6) TAB PO SCH (20:51)
[2018-05-28] MEDS ORDERED: ALPRAZolam 0.5 MG TAB PO SCH (21:00)
[2018-05-28] MEDS: Melatonin 3 MG TAB PO SCH (21:35)
[2018-05-29] MEDS: Acetaminophen 500 MG TAB PO SCH ×4 (02:28→21:07)
[2018-05-29] MEDS: traMADol HCl 50 MG TAB PO SCH ×4 (02:28→21:08)
[2018-05-29] MEDS: Clindamycin/D5W 600 MG in Premix Bag 1 BAG IVPB SCH (02:29)
[2018-05-29] MEDS: Ibuprofen 600 MG TAB PO SCH ×3 (06:11→21:08)
[2018-05-29] MEDS: Mometasone 100 MCG HFA INHALER INH SCH ×2 (06:46→19:04)
[2018-05-29] MEDS: metFORMIN 500 MG TAB PO SCH ×2 (07:40→17:11)
[2018-05-29] MEDS: Alogliptin 6.25 MG TAB PO SCH (08:58)
[2018-05-29] MEDS: Enoxaparin Sodium 40 MG/0.4 ML SYRINGE SC SCH (08:58)
[2018-05-29] MEDS: Polyethylene Glycol 3350 17 GM Packet PO SCH (08:58)
[2018-05-29] MEDS: Senokot S 8.6-50 MG TAB PO SCH ×2 (08:58→20:00)
[2018-05-29] MEDS: Clindamycin 150 MG CAP PO SCH ×3 (08:59→21:08)
[2018-05-29] MEDS: Magnesium Oxide 400 MG TAB PO SCH (08:59)
[2018-05-29] MEDS: Potassium Chloride 10 MEQ TAB PO SCH (09:00)
[2018-05-29] MEDS: Furosemide 40 MG TAB PO SCH (09:00)
[2018-05-29] MEDS: Lisinopril 10 MG TAB PO SCH (09:00)
[2018-05-29] MEDS: Famotidine 20 MG TAB PO SCH (09:00)
[2018-05-29] MEDS: Ferrous Sulfate 325 MG TAB PO SCH ×2 (09:00→17:11)
[2018-05-29] MEDS: Fluticasone Propionate Nasal Spray 16 gm Bottle NASAL SCH ×2 (09:00→21:08)
--- NOTE | 2018-05-29 20:30 | PRG ---
DATE OF SERVICE: 05/29/2018 SUBJECTIVE: The patient is status post ground level fall in which she sustained a right bimalleolar fracture dislocation, which she has undergone percutaneous pinning for the same. The patient has bee n working with physical and occupational therapy. Again, this is slow due to the fact the patient is very apprehensive about attempting to walk, nonweightbearing on her affected side. Physical therapy again emphasized the importance of her ambulating in order to be discharged. PHYSICAL EXAMINATION: VITAL SIGNS: Temperature is 98.0, heart rate 72, blood pressure 135/75, respirations 12, oxygen satu ration 97% on room air. GENERAL: The patient is resting comfortably in bed. She is awake, alert, and oriented x3. [place] coma scale is 15. HEENT: Unremarkable. LUNGS: Clear to auscultation bilaterally. HEART: Regular rate and rhythm. ABDOMEN: Soft, flat, nontender with active bowel sounds. EXTREMITIES: Upper extremity is again markedly less erythema though still runner to palpation, likel y related to phlebitis. There are still does not appear to be a fluctuant pocket to be drained. The remainder of her extremities is neurovascularly intact x3. ASSESSMENT AND PLAN: 1. Status post ground level fall. 2. Status post percutaneous pin fixation of right ankle fracture dislocation. 3. Resolving cellulitis. Plan will be to continue antibiotics for 1 more day, physical and occupational therapy and await erlinda mera placement decision. After discussion with case management, the patient will most likely be dischar ge home with home health.
[2018-05-29] MEDS: Melatonin 3 MG TAB PO SCH (21:06)
[2018-05-29] MEDS: Mirtazapine 15 MG TAB PO SCH (21:06)
[2018-05-29] MEDS: Rosuvastatin 20 MG TAB PO SCH (21:08)
[2018-05-29] MEDS: pyridOXINE 50 MG (B6) TAB PO SCH (21:08)
[2018-05-30] MEDS: Acetaminophen 500 MG TAB PO SCH ×4 (03:38→21:25)
[2018-05-30] MEDS: traMADol HCl 50 MG TAB PO SCH ×4 (03:38→21:28)
[2018-05-30] MEDS: Ibuprofen 600 MG TAB PO SCH ×3 (06:41→21:30)
[2018-05-30] MEDS: Mometasone 100 MCG HFA INHALER INH SCH ×2 (07:17→19:06)
[2018-05-30] MEDS: Potassium Chloride 10 MEQ TAB PO SCH (08:16)
[2018-05-30] MEDS: metFORMIN 500 MG TAB PO SCH ×2 (08:16→16:40)
[2018-05-30] MEDS: Ferrous Sulfate 325 MG TAB PO SCH ×2 (08:16→16:40)
[2018-05-30 08:22] LABS: #Eosinphils 0.2 thou/uL (0.0-0.7); #Lymphocytes 1.6 thou/uL (1.20-3.40); #Monocytes 0.8 thou/uL (0.11-0.59); #Neutrophils 7.6 thou/uL (1.40-6.50); %Basophils 0.3 % (0.0-1.0); %Eosinophils 2.1 % (0.0-10.0); %Lymphocytes 15.7 % (21.0-51.0); %Monocytes 8.2 % (0.0-10.0); %Neutrophils 73.7 % (42.0-75.0); Hemoglobin 9.3 g/dL (12.0-16.0); Mean Corpuscular HGB CONC 32.8 g/dL (32.0-36.0); Mean Corpuscular Hemoglobin 28.4 pg (27.0-31.0); Mean Corpuscular Volume 86.6 fL (78.0-98.0); Mean Platelet Volume 7.7 fL (7.4-10.4); Platelet Count 275 thou/uL (130-400); Red Blood Cell (RBC) Count 3.27 mill/uL (4.20-5.40); White Blood Cell (WBC) Count 10.2 thou/uL (4.8-10.8)
--- NOTE | 2018-05-30 09:08 | RAD ---
PORTABLE CHEST 1 VIEW: DATE: 05/30/18. TIME: 8:01 a.m. HISTORY: Fever. FINDINGS: Comparison is made with the exam of 03/17/18. The heart size is borderline. The lungs are expanded without focal areas of consolidation, pneumotho rax, agustín pulmonary edema, or pleural effusions. IMPRESSION: No radiographic evidence of acute cardiopulmonary process. POS: [facility]
[2018-05-30] MEDS: Furosemide 40 MG TAB PO SCH (09:38)
[2018-05-30] MEDS: Famotidine 20 MG TAB PO SCH (09:38)
[2018-05-30] MEDS: Magnesium Oxide 400 MG TAB PO SCH (09:41)
[2018-05-30] MEDS: Lisinopril 10 MG TAB PO SCH (09:41)
[2018-05-30] MEDS: Polyethylene Glycol 3350 17 GM Packet PO SCH (09:42)
[2018-05-30] MEDS: Senokot S 8.6-50 MG TAB PO SCH ×2 (09:42→21:29)
[2018-05-30] MEDS: Enoxaparin Sodium 40 MG/0.4 ML SYRINGE SC SCH (09:43)
[2018-05-30] MEDS: Fluticasone Propionate Nasal Spray 16 gm Bottle NASAL SCH ×2 (09:44→21:34)
[2018-05-30] MEDS: Alogliptin 6.25 MG TAB PO SCH (09:47)
[2018-05-30] MEDS: Clindamycin 150 MG CAP PO SCH ×3 (11:21→21:27)
[2018-05-30 11:30] LABS: Bilirubin Negative (Negative); Blood, Urine Small (Negative); Clarity CLEAR (Clear); Glucose, Urine (Dipstick) Negative (Negative); Leukocyte Negative (Negative); Nitrite Negative (Negative); Protein, Urine (Dipstick) 30 mg/dL (Neg-Trace); Specific Gravity, Urine 1.007 (1.002-1.036); Urobilinogen 0.2 mg/dL (0.2-1.0); pH, Urine 5.5 (5.0-9.0)
[2018-05-30 11:32] LABS: Bacteria/HPF None Seen HPF (None Seen); Hyaline Casts/LPF 0-3 HYALINE CAST LPF (0-3 Hyaline); Pathc Cast-AUWi Flag 0.14 (0-2.49); Squamous Epithelial 0-3 HPF (0-3); WBC/HPF 0-3 HPF (0-3)
--- NOTE | 2018-05-30 16:50 | ULT ---
VENOUS DUPLEX SONOGRAM RIGHT UPPER EXTREMITY: 05/30/18 HISTORY: Right arm pain and edema. FINDINGS: good color and spectral doppler flow apparent within the right internal jugular and subclavian veins and the brachial, basilic, cephalic, and axillary veins. Some inflammation is apparent around the ant ecubital venous structures. IMPRESSION: No sonographic evidence of DVT right upper extremity. POS: [facility]
[2018-05-30] MEDS ORDERED: Enoxaparin Sodium 40 MG/0.4 ML SYRINGE SC SCH (21:00)
[2018-05-30] MEDS: Enoxaparin Sodium 30 MG/0.3 ML SYRINGE SC SCH (21:24)
[2018-05-30] MEDS: Melatonin 3 MG TAB PO SCH (21:24)
[2018-05-30] MEDS: Rosuvastatin 20 MG TAB PO SCH (21:25)
[2018-05-30] MEDS: pyridOXINE 50 MG (B6) TAB PO SCH (21:25)
[2018-05-30] MEDS: Mirtazapine 15 MG TAB PO SCH (21:28)
[2018-05-30] MEDS ORDERED: Lisinopril 10 MG TAB PO SCH (22:30)
--- NOTE | 2018-05-31 00:49 | PRG ---
DATE OF SERVICE: 05/30/2018 Please note that this is a late dictation. The patient was seen and evaluated at approximately 10:15 this morning. SUBJECTIVE: Tony Avery is a 52-year-old female, status post ground level fall resulting in a right ankle fracture. Given patient's nonhealing diabetic foot ulcer, intervention was to the affected ext remity was delayed; however, she is now status post surgical intervention. Of note, patient had evid ence of right upper extremity cellulitis and phlebitis for which she has been on antibiotics. The pa jacek spiked a fever this morning of 101. She denies any chest pain, shortness of breath, symptoms o f UTI, abdominal pain or diarrhea. The patient states pain has been well controlled. OBJECTIVE: VITAL SIGNS: Temperature 101.1, pulse 92, respirations 16, O2 sat 94% on room air, blood pressure 17 0/66. GENERAL: Resting in bed in no acute distress. PULMONARY: Normal work of breathing. Symmetric rise. Lungs are clear to auscultation bilaterally. CARDIOVASCULAR: Regular rate and rhythm. GASTROINTESTINAL: Abdomen, soft, nontender, nondistended. MUSCULOSKELETAL: Right lower extremity dressing is clean, dry, and intact. NEUROLOGIC: No focal deficit noted. ASSESSMENT: 1. Status post ground level fall. 2. Right bimalleolar fracture, status post percutaneous pinning. 3. Right upper extremity cellulitis and thrombophlebitis. 4. Fever, unknown origin. 5. Acute traumatic pain. 6. History of diabetes. 7. History of hypertension. PLAN: Check urinalysis and a chest x-ray. We will discuss with Orthopedic Surgery for wound evaluat ion. Right upper extremity ultrasound given patient's edema and erythema to rule out DVT. Patient i s requesting to go home with home health. One source of fever has been identified or infectious sour ce has been ruled out. We will discuss with case management. They are currently attempting to obtai n [facility] home health visits. Continue PT and OT. Continue pain management as ordered. The patient was discussed with Dr. Pruitt. All questions were answered at the time of this dictation.
[2018-05-31] MEDS: Acetaminophen 500 MG TAB PO SCH ×4 (02:49→22:00)
[2018-05-31] MEDS: traMADol HCl 50 MG TAB PO SCH ×4 (02:50→22:08)
[2018-05-31] MEDS: Ibuprofen 600 MG TAB PO SCH ×3 (05:58→22:09)
[2018-05-31 06:15] LABS: #Eosinphils 0.3 thou/uL (0.0-0.7); #Lymphocytes 2.5 thou/uL (1.20-3.40); #Monocytes 1.1 thou/uL (0.11-0.59); #Neutrophils 7.2 thou/uL (1.40-6.50); %Basophils 0.2 % (0.0-1.0); %Eosinophils 2.4 % (0.0-10.0); %Lymphocytes 22.4 % (21.0-51.0); %Monocytes 9.7 % (0.0-10.0); %Neutrophils 65.3 % (42.0-75.0); Mean Corpuscular HGB CONC 33.2 g/dL (32.0-36.0); Mean Corpuscular Hemoglobin 28.9 pg (27.0-31.0); Mean Corpuscular Volume 87.1 fL (78.0-98.0); Mean Platelet Volume 7.9 fL (7.4-10.4); Platelet Count 304 thou/uL (130-400); RBC Distribution Width 12.8 % (11.5-14.5); Red Blood Cell (RBC) Count 3.46 mill/uL (4.20-5.40)
[2018-05-31] MEDS: Mometasone 100 MCG HFA INHALER INH SCH ×2 (07:02→18:41)
[2018-05-31] MEDS: Potassium Chloride 10 MEQ TAB PO SCH (08:13)
[2018-05-31] MEDS: metFORMIN 500 MG TAB PO SCH ×2 (08:13→17:16)
[2018-05-31] MEDS: Ferrous Sulfate 325 MG TAB PO SCH ×2 (08:14→17:17)
[2018-05-31] MEDS: Alogliptin 6.25 MG TAB PO SCH (08:15)
[2018-05-31] MEDS: Clindamycin 150 MG CAP PO SCH ×3 (08:15→22:43)
[2018-05-31] MEDS: Famotidine 20 MG TAB PO SCH (08:16)
[2018-05-31] MEDS: Magnesium Oxide 400 MG TAB PO SCH (08:16)
[2018-05-31] MEDS: Furosemide 40 MG TAB PO SCH (08:16)
[2018-05-31] MEDS: Senokot S 8.6-50 MG TAB PO SCH ×2 (08:16→22:07)
[2018-05-31] MEDS: Enoxaparin Sodium 30 MG/0.3 ML SYRINGE SC SCH ×2 (08:17→22:03)
[2018-05-31] MEDS ORDERED: Lisinopril 10 MG TAB PO SCH (09:00)
[2018-05-31] MEDS: Polyethylene Glycol 3350 17 GM Packet PO SCH (09:05)
[2018-05-31] MEDS: Fluticasone Propionate Nasal Spray 16 gm Bottle NASAL SCH ×2 (09:08→22:03)
--- NOTE | 2018-05-31 11:26 | PRG ---
DATE OF SERVICE: 05/31/2018 SUBJECTIVE: This is a 52-year-old female status post ground level fall resulting in a right ankle fr acture. She is now status post surgical intervention. She has completed her course of antibiotics f or her right upper extremity cellulitis and phlebitis. Patient had a T-max overnight of 99.1. This morning, she states that pain in her right lower extremity has somewhat increased, but is otherwise f eeling well and vocalized no complaint. OBJECTIVE: VITAL SIGNS: Temperature 98.6, pulse 75, respiration rate 18, O2 saturation 98% on room air, and blo od pressure 124/59. GENERAL: Resting in bed in no acute distress. PULMONARY: Normal work of breathing. Symmetric rise. LUNGS: Clear to auscultation bilaterally. IS 1750 mL CARDIOVASCULAR: Regular rate and rhythm. GASTROINTESTINAL: Soft, nontender, nondistended. MUSCULOSKELETAL: Right lower extremity dressing is clean, dry, and intact. Right upper extremity wi th minimal erythema. NEUROLOGIC: No focal deficit is noted. ASSESSMENT: 1. Status post ground level fall. 2. Right bimalleolar fracture status post percutaneous pinning. 3. Right upper extremity cellulitis and thrombophlebitis, resolving. 4. Fever, improved. 5. Acute traumatic pain. 6. History of diabetes. 7. History of hypertension. PLAN: Discontinue IV antibiotics after today. Given patient's recent fever with unclear etiology, w brain would observe in the hospital another night. Patient is currently being assisted by case managemen t for home health an indigent finding. If patient remains afebrile overnight, we will likely dischar ge in a.m. Otherwise, supportive care as ordered. Continue PT and OT. Continue to encourage mobili ty, pulmonary toileting. The patient was seen and evaluated with Dr. Pruitt and updated on plan of ca re. All questions were answered at the time of this dictation.
[2018-05-31] MEDS: HumaLOG 300 UNITS/3 ML VIAL SC PRN (18:20)
[2018-05-31] MEDS: Melatonin 3 MG TAB PO SCH (22:04)
[2018-05-31] MEDS: Mirtazapine 15 MG TAB PO SCH (22:05)
[2018-05-31] MEDS: Rosuvastatin 20 MG TAB PO SCH (22:06)
[2018-05-31] MEDS: pyridOXINE 50 MG (B6) TAB PO SCH (22:06)
[2018-06-01] MEDS: Acetaminophen 500 MG TAB PO SCH ×4 (02:28→20:05)
[2018-06-01] MEDS: traMADol HCl 50 MG TAB PO SCH ×4 (02:28→20:11)
[2018-06-01 05:50] LABS: #Eosinphils 0.3 thou/uL (0.0-0.7); #Lymphocytes 2.2 thou/uL (1.20-3.40); #Neutrophils 7.1 thou/uL (1.40-6.50); %Basophils 0.3 % (0.0-1.0); %Eosinophils 2.7 % (0.0-10.0); %Lymphocytes 20.9 % (21.0-51.0); %Monocytes 8.9 % (0.0-10.0); %Neutrophils 67.1 % (42.0-75.0); Hemoglobin 9.7 g/dL (12.0-16.0); Mean Corpuscular HGB CONC 34.1 g/dL (32.0-36.0); Mean Corpuscular Hemoglobin 29.3 pg (27.0-31.0); Mean Platelet Volume 7.7 fL (7.4-10.4); Platelet Count 315 thou/uL (130-400); RBC Distribution Width 12.7 % (11.5-14.5); Red Blood Cell (RBC) Count 3.31 mill/uL (4.20-5.40); White Blood Cell (WBC) Count 10.6 thou/uL (4.8-10.8)
[2018-06-01 06:13] LABS: Anion Gap 16 mmol/L (10-20); BUN (Urea Nitrogen) 30 mg/dL (9.8-20.1); Calc. Creatinine Clearance 55 mL/min (70-130); Calcium 9.8 mg/dL (7.8-10.44); Carbon Dioxide 23 mmol/L (22-29); Chloride 104 mmol/L (98-107); Estimated GFR-MDRD 32; Magnesium 1.8 mg/dL (1.6-2.6); Phosphorus 4.1 mg/dL (2.3-4.7); Potassium 3.7 mmol/L (3.5-5.1); Sodium 139 mmol/L (136-145)
[2018-06-01] MEDS: Ibuprofen 600 MG TAB PO SCH (06:20)
[2018-06-01 06:21] LABS: Glucose 53 mg/dL (70-105)
[2018-06-01] MEDS: Mometasone 100 MCG HFA INHALER INH SCH ×2 (06:39→18:33)
[2018-06-01] MEDS: Enoxaparin Sodium 30 MG/0.3 ML SYRINGE SC SCH ×2 (08:24→20:07)
[2018-06-01] MEDS: Ferrous Sulfate 325 MG TAB PO SCH ×2 (08:24→17:05)
[2018-06-01] MEDS: Fluticasone Propionate Nasal Spray 16 gm Bottle NASAL SCH ×2 (08:30→20:07)
[2018-06-01] MEDS: Furosemide 40 MG TAB PO SCH (08:30)
[2018-06-01] MEDS: Magnesium Oxide 400 MG TAB PO SCH (08:30)
[2018-06-01] MEDS: Potassium Chloride 10 MEQ TAB PO SCH (08:30)
[2018-06-01] MEDS: Polyethylene Glycol 3350 17 GM Packet PO SCH (09:02)
[2018-06-01] MEDS: Alogliptin 6.25 MG TAB PO SCH (09:02)
[2018-06-01] MEDS: metFORMIN 500 MG TAB PO SCH ×2 (09:02→17:05)
[2018-06-01] MEDS: Senokot S 8.6-50 MG TAB PO SCH ×2 (09:02→20:10)
[2018-06-01] MEDS: Melatonin 3 MG TAB PO SCH (20:08)
[2018-06-01] MEDS: Mirtazapine 15 MG TAB PO SCH (20:09)
[2018-06-01] MEDS: pyridOXINE 50 MG (B6) TAB PO SCH (20:09)
[2018-06-01] MEDS: Rosuvastatin 20 MG TAB PO SCH (20:10)
[2018-06-01 20:26] VITALS: BP 141/69; TEMP 98.7
--- NOTE | 2018-06-02 13:08 | DIS ---
DATE OF ADMISSION: 05/20/2018 DATE OF DISCHARGE: 06/01/2018 ADMISSION DIAGNOSES: 1. Status post mechanical fall. 2. Right ankle fracture. 3. Acute traumatic pain. 4. History of limited mobility and debility. 5. History of chronic pain. 6. History of fibromyalgia. 7. History of depression. 8. History of hypertension. 9. History of type 2 diabetes. 10. History of right ankle diabetic ulcer with delayed healing. 11. History of migraines. 12. History of sleep apnea. DISCHARGE DIAGNOSES: 1. Status post mechanical fall. 2. Right ankle fracture. 3. Acute traumatic pain. 4. History of limited mobility and debility. 5. History of chronic pain. 6. History of fibromyalgia. 7. History of depression. 8. History of hypertension. 9. History of type 2 diabetes. 10. History of right ankle diabetic ulcer with delayed healing. 11. History of migraines. 12. History of sleep apnea. CONSULTANTS: Dr. Del Toro, Orthopedic Surgery. PROCEDURES: On 05/25/2018, right transcalcaneal, transtalar and transtibial pin fixation of ankle fr acture with Dr. Del Toro. HOSPITAL COURSE: Ms. Tony Avery is a 52-year-old female who presented to [facility] status post mechanical fall. She was found to have an isolated right ankle fracture. Operative intervention was delayed secondary to her delayed healing diabetic ulcer and concern for delayed healing and infectio n. Initially, she was admitted for pain control, observation, and possible placement into a residential facility while her foot ulcer continued to heal. However, patient elected against going to a residential facility. Given the patient's high risk of wound complications, orthopedic surgery, elected for pinning of her injury for stabilization. Patient was hesitant throughout her hospital s kel and anxious working with physical therapy for mobility. Despite multiple attempts to convince he r to elect for residential facility and assistance given her financial status and reliance on ind igent funding for her housing, the patient elected to go home over fear of losing her residence. Ranjan e management worked closely with multiple sita organizations to ensure that the patient would have access to bedside commode, rolling walker, shower chair. Patient reported that she had a daughter w ho was willing to assist her, as well as a neighbor. Of note, the patient was found to have some rig ht upper extremity cellulitis during her hospital stay, which was treated with an appropriate course of antibiotics. On 06/01/2018, she was medically stable for discharge. She was discharged home with the assistance of EMS to assist her back into her house and her daughter met her there. The sita organizations and question plan to meet with the patient to provide her necessary DME, the day after discharge. DISCHARGE CONDITION: Fair. PHYSICAL EXAMINATION: VITAL SIGNS: On discharge, temperature 98.7, pulse 87, respiration rate 18, O2 sat 100% on room air, blood pressure 141/69. GENERAL: Resting in bed, somewhat tearful and anxious. PULMONARY: Normal work of breathing, symmetric rise. CARDIOVASCULAR: Regular rate and rhythm. GASTROINTESTINAL: Abdomen is soft, nontender, nondistended. MUSCULOSKELETAL: Moves all extremities x4. Right lower extremity dressing clean, dry, and intact. NEUROLOGIC: No focal deficit noted. DISCHARGE INSTRUCTIONS: Discharge instructions were provided to the patient. She is nonweightbearin g on her right lower extremity. She should keep her wounds clean, dry, and intact. She is receiving a sita visit for home health and two home sita PT visits. DISCHARGE MEDICATIONS: Discharge medications were as documented in the electronic medical record. Boni negrete's daughter stated that she would assist the patient in obtaining medications. FOLLOWUP APPOINTMENTS: The patient should follow up with her primary care provider in approximately 1 week with a basic metabolic panel to reevaluate renal function. She should hold her lisinopril unt il that time. The patient should follow up with Dr. Del Toro from Orthopedic Surgery as directed by t team and as documented in her discharge instructions. She does not need to follow up formally w [facility] and may call our office with any questions. This is merely a summary of the ventura ent's hospitalization. For more in depth information, please see her medical record in its entirety.
== END 2018-06-01 21:07 | disposition home health service (06) | DRG 493 ==
LOC: ERS 08:07 → OBSVTOIN 14:38 → SURG A 14:38
PROVIDERS: ADMIT Specialist; ATTEND Specialist
PROC: 0QSLXZZ Reposition Right Tarsal, External Approach (ICD-10-PCS; 2018-05-20)
PROC: 0QSGXZZ Reposition Right Tibia, External Approach (ICD-10-PCS; 2018-05-20)
PROC: 0SSFXZZ Reposition Right Ankle Joint, External Approach (ICD-10-PCS; 2018-05-23)
PROC: 0QSL04Z Reposition Right Tarsal with Internal Fixation Device, Open Approach (ICD-10-PCS; principal; 2018-05-25)
PROC: 0QSG04Z Reposition Right Tibia with Internal Fixation Device, Open Approach (ICD-10-PCS; 2018-05-25)
DX: S82.841A Displaced bimalleolar fracture of right lower leg, initial encounter for closed fracture (principal); L03.113 Cellulitis of right upper limb; I80.9 Phlebitis and thrombophlebitis of unspecified site; I10 Essential (primary) hypertension; E11.621 Type 2 diabetes mellitus with foot ulcer; G89.29 Other chronic pain; M79.7 Fibromyalgia; M32.9 Systemic lupus erythematosus, unspecified; E66.9 Obesity, unspecified; Z68.38 Body mass index [BMI] 38.0-38.9, adult; W01.0XXA Fall on same level from slipping, tripping and stumbling without subsequent striking against object, initial encounter; Y93.9 Activity, unspecified; Y92.9 Unspecified place or not applicable; Y99.9 Unspecified external cause status; Z91.013 Allergy to seafood; Z87.891 Personal history of nicotine dependence; Z88.0 Allergy status to penicillin; Z88.2 Allergy status to sulfonamides; Z79.84 Long term (current) use of oral hypoglycemic drugs; Z79.899 Other long term (current) drug therapy; Z83.3 Family history of diabetes mellitus; Z82.49 Family history of ischemic heart disease and other diseases of the circulatory system
CPT/HCPCS: 27762; 36415; 36416; 71045; 72170; 76001; 80048; 81001; 83735; 84100; 85025; 87040; 87070; 87077; 87186; 87205; 96361; 96374; 96375; 99152; 99156; C1713; G0390; G8978-GP-CK; G8978-GP-CL; G8979-GP-CI; G8979-GP-CJ; G8987-GO-CK; G8988-GO-CJ; J0360; J1100; J1650; J1885; J2001; J2250; J2270; J2704; J3010; J3490

== ENCOUNTER 2018-06-15 19:25 | Emergency (ER) | payer OTHER, SELFPAY ==
--- NOTE | 2018-06-15 22:03 | RAD ---
THREE VIEWS RIGHT FOOT 06/15/18 HISTORY: Right foot and ankle pain. Recent surgery on right foot secondary to fracture. There is a long metallic augustus most proximal portion which is not imaged which extends through the tibi otalar joint and extends inferiorly to the most inferior aspect of plantar aspect of the foot with ov erlying soft tissue irregularity involving the plantar aspect of the hindfoot. Fractures involving th e medial malleolus as well as fibula and posterior malleolus are again seen. There has been amputatio n of the fifth digit at the level of the proximal metatarsal. No acute fracture or dislocation is see n. Toes are held in flexion, which limits adequate evaluation. No other interval change. IMPRESSION: 1. 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 The most distal portion of the augustus extends to the plantar aspect of the soft tissues of the foot where there is over lying soft tissue irregularity. 2. Fractures at the ankle, noted on prior exams. 3. Amputation of the fifth digit. POS: [facility]
--- NOTE | 2018-06-15 22:53 | RAD ---
THREE VIEWS OF THE RIGHT ANKLE 06/15/18 COMPARISON: None. HISTORY: Right foot fracture and repair. Patient noticed that he has a pin that is sticking out. FINDINGS: Three views of the right ankle shows the patient to be status post retrograde nail placement and calc aneotalotibial fusion. The nail is at the skin surface. There is a fracture of the distal fibula and a fracture of the medial malleolus. There is slight widening of the medial clear space. A small amoun t of callus is surrounding the fractures and the fractures have not yet healed. The patient is status post amputation of the fifth toe through the proximal metatarsal. Moderate diffuse soft tissue swell ing is seen. IMPRESSION: 1. Backing out of intramedullary nail spanning the ankle. 2. Incompletely healed distal fibula and medial malleolus fractures. POS: [facility]
== END 2018-06-15 22:14 | disposition home or self-care (01) ==
LOC: ERS 19:25
DX: T83.729A Exposure of other prosthetic materials into organ or tissue, initial encounter (principal); F41.9 Anxiety disorder, unspecified; F32.9 Major depressive disorder, single episode, unspecified; G47.30 Sleep apnea, unspecified; E78.5 Hyperlipidemia, unspecified; E78.1 Pure hyperglyceridemia; K21.9 Gastro-esophageal reflux disease without esophagitis; J45.909 Unspecified asthma, uncomplicated; I10 Essential (primary) hypertension; E11.40 Type 2 diabetes mellitus with diabetic neuropathy, unspecified; M19.90 Unspecified osteoarthritis, unspecified site; G43.909 Migraine, unspecified, not intractable, without status migrainosus; Z87.891 Personal history of nicotine dependence; Z79.899 Other long term (current) drug therapy; Z79.1 Long term (current) use of non-steroidal anti-inflammatories (NSAID); Z79.84 Long term (current) use of oral hypoglycemic drugs

== ENCOUNTER 2018-06-17 13:30 | Inpatient (IN) | payer OTHER, SELFPAY ==
[2018-06-17 14:15] LABS: #Eosinphils 0.4 thou/uL (0.0-0.7); #Lymphocytes 1.9 thou/uL (1.20-3.40); #Monocytes 0.7 thou/uL (0.11-0.59); #Neutrophils 9.2 thou/uL (1.40-6.50); %Basophils 0.4 % (0.0-1.0); %Eosinophils 3.3 % (0.0-10.0); %Lymphocytes 15.8 % (21.0-51.0); %Monocytes 5.9 % (0.0-10.0); %Neutrophils 74.7 % (42.0-75.0); Hemoglobin 11.5 g/dL (12.0-16.0); Mean Corpuscular HGB CONC 35.4 g/dL (32.0-36.0); Mean Corpuscular Hemoglobin 29.3 pg (27.0-31.0); Mean Corpuscular Volume 82.7 fL (78.0-98.0); Mean Platelet Volume 7.8 fL (7.4-10.4); Platelet Count 381 thou/uL (130-400); RBC Distribution Width 12.7 % (11.5-14.5); Red Blood Cell (RBC) Count 3.91 mill/uL (4.20-5.40); White Blood Cell (WBC) Count 12.3 thou/uL (4.8-10.8)
[2018-06-17] MEDS ORDERED: Ondansetron HCl/PF 4 MG/2 ML Vial ONE (14:15)
[2018-06-17 14:33] LABS: ALT (SGPT) 22 U/L (8-55); AST (SGOT) 22 U/L (5-34); Albumin 4.2 g/dL (3.5-5.0); Alkaline Phosphatase 140 U/L (40-150); Anion Gap 19 mmol/L (10-20); BUN (Urea Nitrogen) 26 mg/dL (9.8-20.1); Bilirubin, Total 0.2 mg/dL (0.2-1.2); Calc. Creatinine Clearance 0 mL/min (70-130); Calcium 9.6 mg/dL (7.8-10.44); Carbon Dioxide 25 mmol/L (22-29); Chloride 96 mmol/L (98-107); Estimated GFR-MDRD 29; Globulin 3.6 g/dL (2.4-3.5); Glucose 181 mg/dL (70-105); Potassium 3.2 mmol/L (3.5-5.1); Protein, Total 7.8 g/dL (6.0-8.3); Sodium 137 mmol/L (136-145)
[2018-06-17] MEDS ORDERED: Ondansetron HCl/PF 4 MG/2 ML Vial IV PRN (15:28)
[2018-06-17] MEDS ORDERED: Fentanyl 100 MCG/2 ML VIAL SLOW IVP PRN (15:28)
[2018-06-17] MEDS ORDERED: Bisacodyl 10 MG SUPP PR PRN (15:28)
[2018-06-17] MEDS ORDERED: Acetaminophen 325 MG TAB PO PRN (15:28)
[2018-06-17] MEDS ORDERED: Milk Of Magnesia 30 ML UDCUP PO PRN (15:28)
[2018-06-17] MEDS ORDERED: Communication Order-Pharmacy FS SCH (15:30)
[2018-06-17] MEDS ORDERED: Vancomycin HCl 1 GM in Sodium Chloride 0.9% 250 ML 300 ML IVPB SCH (15:30)
[2018-06-17] MEDS ORDERED: TETANUS AND DIPHTHERIA TOX/PF 0.5 ML DISP.SYRIN IM SCH (15:30)
[2018-06-17] MEDS ORDERED: Piperacillin/Tazobactam 4.5 GM VIAL ONE (16:13)
[2018-06-17] MEDS ORDERED: Dextrose 5% in Water 1,000 ML IV PRN (20:02)
[2018-06-17] MEDS ORDERED: Dextrose 50% Abboject 50 ML SYRINGE SLOW IVP PRN (20:02)
[2018-06-17] MEDS ORDERED: Artificial Tears 18 DROP/0.9 ML EA EYE PRN (20:05)
[2018-06-17] MEDS ORDERED: Vancomycin HCl 500 MG in Sodium Chloride 0.9% 100 ML IVPB SCH (21:00)
--- NOTE | 2018-06-17 21:09 | CON ---
DATE OF CONSULTATION: 06/17/2018 CHIEF COMPLAINT: Right foot pain with drainage. HISTORY OF PRESENT ILLNESS: Ms. Avery is a 52-year-old female who has a complicated history regardin g her right foot and ankle. Last September, she underwent fifth ray amputation for diabetic foot ulce r with nonhealing wound. She reports that this healed after several months. Around the time of heal ing, she fell fracturing her right ankle. Dr. Del Toro has been treating her for her ankle fracture. He initially splinted the ankle for nonoperative treatment after reduction. She had ongoing instabi lity; however, of the ankle fracture with ongoing subluxation. He had to take her back to the operat ing room for re-reduction and splinting. Again, she subluxated. At this point, he took her for plac ement of Steinmann pin across the tibiotalar joint to hold the ankle fracture in appropriate position for healing. The patient had poor skin, especially medially and it was thought that she would be at a very high risk of wound complication if open reduction and internal fixation was performed. [facility], last week she developed a recurrent wound over the heel at the area of her insertion of Isaiah inmann pin. This has begun draining foul smelling fluid. The pin has now become visible and is prot ruding from the wound. She has noted half-way redness and swelling over the medial malleolus. She s ays this is actually slightly improved over the last several days. She has had increased pain in the ankle and foot; however. She has also noticed low grade fevers. She has not been on an antibiotic. She presented to the emergency room today for evaluation. She was just seen in the emergency room 2-3 days ago as well. PAST MEDICAL HISTORY: Diabetes with poor control, also rheumatoid arthritis, fibromyalgia, lupus, ps oriatic arthritis, depression, glaucoma, cataracts, sleep apnea, diabetic neuropathy, history of carp al tunnel syndrome, GERD, migraines, hyperlipidemia, hypertension, asthma, celiac disease, and anxiet y. PAST SURGICAL HISTORY: Tonsillectomy, adenoidectomy, exploratory laparotomy, tubal ligation, nasal s urgery, hysterectomy, cholecystectomy, recent right fifth metatarsal amputation, recent ankle fractur e reduction and pinning. SOCIAL HISTORY: The patient has a past history of tobacco use. She denies active tobacco use. No a lcohol or drug use. FAMILY MEDICAL HISTORY: Positive for coronary artery disease and diabetes. REVIEW OF SYSTEMS: Positive for right foot and ankle pain as well as fevers as per HPI, otherwise ne gative 10-point review of systems. LABORATORY DATA: Significant for a white blood cell count of 12.3. PHYSICAL EXAMINATION: VITAL SIGNS: The patient is afebrile currently. She does report low grade fevers at home. She is n ormotensive at 98% on room air. GENERAL: She is alert, sitting upright in no apparent distress. RESPIRATORY: Breathing comfortably. ABDOMEN: Soft, nontender, and nondistended. MUSCULOSKELETAL: The right lower extremity has erythema and slight warmth over the medial malleolus. There is a fluctuant feel to the medial malleolus. The right lower extremity has open wound over t he plantar surface. There is some foul drainage from the wound. There is prominence of a pin which is protruding approximately 1 cm from the skin edge. There is poor healing. There is faint erythema surrounding. There is also erythema over the medial malleolus. She has some fluctuance to palpatio n. There is increased warmth of this area. The skin is thin. She has evidence of fifth metatarsal amputation. IMAGING DATA: X-rays from 2 days ago are reviewed. These demonstrate a bimalleolar ankle fracture. There is a pin transfixing the tibiotalar joint. There is some early callus formation at the latera l malleolus. There is slight displacement. IMPRESSION: A 52-year-old female in very poor health with uncontrolled diabetes as well as a variety of other immunocompromising diseases. She had a recent ankle fracture treated with a minimal approa ch; however, this has resulted in a wound with nail overlying infection related to prominent hardware . PLAN: At this point, the patient will need to go to the operating room. I will plan for removal of her hardware as well as debridement of her plantar foot wound. I will also aspirate the medial ankle to see if there is, in fact, purulence of this area. Hopefully, the simply has a hematoma and can b e left alone. If she does have a deep infection, she will likely need long-term antibiotics as well as long-term wound care. She has a high likelihood of not healing her wounds and may even go to anot her point of requiring a [id number] amputation. She has a great difficulty healing even a very s mall 1 cm wound on the plantar foot. She should be n.p.o. at midnight. We will continue vancomycin and clindamycin. She will elevate the foot. She will have appropriate wound care. We will have [facility] to manage her multiple medical problems including diabetes.
[2018-06-17] MEDS ORDERED: Heparin 1,000 UNITS/ML VIAL ONE (21:36)
[2018-06-17] MEDS: Rosuvastatin 10 MG TAB PO SCH (23:10)
[2018-06-17] MEDS: Mirtazapine 15 MG TAB PO SCH (23:10)
[2018-06-17] MEDS: HYDROcodone/Acetaminophen 5/325 mg Tablet PO PRN (23:11)
[2018-06-17] MEDS: Clindamycin/D5W 900 MG in Premix Bag 1 BAG IVPB SCH (23:11)
[2018-06-17] MEDS: Sodium Chloride 0.9% 1,000 ML IV SCH (23:24)
--- NOTE | 2018-06-18 01:53 | CON ---
DATE OF CONSULTATION: 06/17/2018 CHIEF COMPLAINT: "The pin coming out of my leg." CONSULT REQUESTER: Dr. Maya of Orthopedics. HISTORY OF PRESENT ILLNESS: Ms. Avery is a 52-year-old female with reported history of lupus, psoriatic arthritis, rheumatoid arthritis, type 2 diabetes, fibromyalgia, obstructive sleep apnea, hypertension, peripheral neuropathy, who presents to the emergency room with the above complaint. She states it started 2 days ago and she was seen in the emergency room and discharged to home. She reports since then that the pin has come out further on the plantar surface of her foot and associated now with the discharge and an odor. She complains of intermittent fevers that have been ongoing this month and she was hospitalized here earlier this month on the Orthopedic Service from 05/20/2018 through 2017. At which point, she had a pinning of a fracture for stabilization. The patient also complains of nausea, anxiety attacks that are associated with chest pain, since then as well. There were no precipitating or relieving factors. The patient does have a history of poor wound healing and history of amputation as well because of this. In the emergency room, the patient received 1 gram of vancomycin IV, Zosyn 4.5 grams, morphine 4 mg, Zofran 4 mg, and a liter of normal saline and Hospitalist called for admission. ALLERGIES: AMOXICILLIN, AMPICILLIN, BACTRIM, CEFTIN, CODEINE, CYMBALTA, GABAPENTIN, LIPITOR, LYRICA, PENICILLIN, and SULFA. CURRENT MEDICATIONS: Reconciled with the patient, 1. Metformin 1000 mg b.i.d. 2. Glipizide 5 mg b.i.d. 3. Januvia 100 mg daily. 4. Nexium 40 mg daily. 5. Lasix 40 mg daily. 6. Potassium chloride 10 mEq daily. 7. Crestor 40 mg at bedtime. 8. Remeron 15 mg daily. 9. Zoloft 250 mg at bedtime. 10. Zofran 8 mg every 8 hours as needed. 11. Flonase 1 spray each nostril b.i.d. 12. Imitrex 100 mg daily as needed. 13. Qvar 1 puff b.i.d. 14. Proventil as needed, none recently. 15. DuoNebs as needed, none recently. 16. Melatonin 10 mg tablets 6 tablets at bedtime. 17. Vitamin D 2000 units 2 tablets at bedtime. 18. Simethicone 125 mg as needed. 19. Benadryl 50 mg as needed. 20. Ibuprofen 600 mg as needed. 21. Artificial Tears. 22. Tramadol as needed. PAST MEDICAL HISTORY: 1. Dyslipidemia. 2. Asthma. 3. Obstructive sleep apnea. 4. Celiac disease. 5. Fibromyalgia. 6. Type 2 diabetes. 7. Hypertension. 8. Rheumatoid arthritis. 9. Psoriatic arthritis. 10. Lupus. 11. Gastroesophageal reflux disease. 12. Glaucoma. 13. Diabetic neuropathy. 14. Migraines. 15. Reported history of cervical cancer. 16. Restless leg syndrome. 17. Carpal tunnel. 18. Cataracts. 19. Major depressive disorder with reported suicide attempt in October PAST SURGICAL HISTORY: 1. Tonsils and adenoids. 2. Nose surgery. 3. Cholecystectomy. 4. Tubal ligation and hysterectomy. 5. Exploratory laparotomy. 6. Right foot surgeries to include amputation. SOCIAL HISTORY: The patient lives alone, she has 2 daughters and reports her medical power of title attorney is her daughter, Adeola, she is from her and reports multiple social stressors involving relationships and income. She uses a wheelchair primarily or stays on the couch, can transfer to a bedside commode. She has a history of tobacco use, quit 8 years ago and denies alcohol. The patient reports that she does not want intubation for any reason even short term. She will accept other interventions in the event of a code, but no intubation. FAMILY HISTORY: Significant for diabetes and heart disease. REVIEW OF SYSTEMS: Significant for patient feeling down and depressed. In general, due to social stressors, she reports a suicide attempt back in October. Nausea, and fever since her last discharge, anxiety. She denies any vomiting, abdominal pain, or difficulty breathing, a recent need for her nebulizer or albuterol. All remaining review of systems are reviewed and negative. PHYSICAL EXAMINATION: VITAL SIGNS: Blood pressure 184/61, pulse 105, temperature 99.5, respirations 18, saturations 95% on room air. GENERAL: Awake, alert, responsive, in no apparent distress, when speaking about social stressors, the patient does become tearful. HEENT: Her pupils are equal and round. Oral mucosa is pink and slightly dry. She does have a small papule on the right side of her tongue. NECK: Supple, nontender. LYMPHATICS: No palpable cervical or supraclavicular lymphadenopathy. LUNGS: Clear to auscultation bilateral. No audible wheezing, rhonchi or rales. HEART: Normal S1, S2, regular rate and rhythm, no audible murmurs. ABDOMEN: Soft with present bowel sounds. EXTREMITIES: 2+ dorsalis pedis pulses bilateral. Her right lower extremity, there is a metal augustus that is protruding from the plantar surface of her foot with surrounding purulent drainage, there is tenderness to palpation, erythema and edema along her right medial malleolus. No pitting edema in her lower extremities. PSYCHIATRIC: The patient appears euthymic with a normal affect. LABORATORY DATA AND IMAGING: Labs are reviewed. 1. CBC: 12.3,11.5, 32.4, 381. 2. Chemistry: 137, 3.2, 96, 25, 26, 1.82, 181 (In review of prior creatinine, it has ranged from 1.0 back in February to 1.82 today, the most recent value prior to today was 1.69 on 06/01/2018. 3. CRP 2.87. 4. LFTs are normal. 5. Ankle x-ray from 06/15/2018 shows an intramedullary nail that is backing out and an incompletely healed distal fibula and medial malleolus fractures. 6. Foot x-ray shows amputation of the fifth digit, fractures of the ankle noted on prior exams and postsurgical changes with the most distal portion of the right extending into the plantar aspect of the soft tissues. IMPRESSION: 1. Foot infection secondary to hardware 2. Poor wound healing. 3. Diabetes mellitus, uncertain control. 4. Chronic kidney disease, currently at stage 3-4, and appears stable. 5. Hypertension. 6. Multiple reported immune system disorders including rheumatoid arthritis, psoriatic arthritis, lupus. 7. Diabetic neuropathy. 8. Obstructive sleep apnea. 9. Depressed mood with multiple social stressors. 10. Celiac disease. 11. Restless legs. 12. Carpal tunnel. 13. Asthma, currently asymptomatic. 14. Major depressive disorder. PLAN: 1. Orthopedic care per Dr. Maya. 2. Holding her oral medications for diabetes and will use sliding scale insulin for now. 3. IV fluid hydration and monitor renal function. 4. We will use p.r.n. hydralazine as patient is not on a home blood pressure medicine, monitoring this closely. 5. We will order her Qvar and p.r.n. DuoNebs and monitor her breathing. 6. Continue her mood medications at the reported home doses with Remeron and Zoloft, holding the melatonin for now. 7. Managing pain with tramadol and low dose morphine. 8. Antibiotics per Dr. Maya. 9. Deep venous thrombosis prophylaxis on hold for now given that patient is anticipated to go to surgery. 10. Gastrointestinal prophylaxis not indicated. 11. Code status: The patient was very clear that her code status is DO NOT INTUBATE, she will accept other CPR or lifesaving interventions, but no intubation and no ventilator. 12. We will request pastoral support of the patient given the stressors that she is undergoing. 13. The patient is at high risk given age, comorbidities, and current presentation. Thank you for this consult. We will follow along with you. Please call with any questions or concerns. I reviewed the plan of care with the patient. No questions or further needs at end of evaluation. PEREZ
[2018-06-18 02:16] VITALS: BMI 39.9
[2018-06-18 05:44] LABS: #Eosinphils 0.3 thou/uL (0.0-0.7); #Lymphocytes 1.6 thou/uL (1.20-3.40); #Monocytes 0.7 thou/uL (0.11-0.59); #Neutrophils 6.4 thou/uL (1.40-6.50); %Basophils 0.3 % (0.0-1.0); %Eosinophils 3.5 % (0.0-10.0); %Lymphocytes 17.8 % (21.0-51.0); %Monocytes 8.1 % (0.0-10.0); %Neutrophils 70.3 % (42.0-75.0); Mean Corpuscular HGB CONC 34.6 g/dL (32.0-36.0); Mean Corpuscular Hemoglobin 28.6 pg (27.0-31.0); Mean Corpuscular Volume 82.7 fL (78.0-98.0); Mean Platelet Volume 7.6 fL (7.4-10.4); Platelet Count 300 thou/uL (130-400); RBC Distribution Width 12.7 % (11.5-14.5); Red Blood Cell (RBC) Count 3.48 mill/uL (4.20-5.40); White Blood Cell (WBC) Count 9.1 thou/uL (4.8-10.8)
[2018-06-18 06:06] LABS: Anion Gap 14 mmol/L (10-20); BUN (Urea Nitrogen) 21 mg/dL (9.8-20.1); Calc. Creatinine Clearance 68 mL/min (70-130); Calcium 8.9 mg/dL (7.8-10.44); Carbon Dioxide 26 mmol/L (22-29); Chloride 101 mmol/L (98-107); Estimated GFR-MDRD 38; Glucose 156 mg/dL (70-105); Sodium 138 mmol/L (136-145)
[2018-06-18] MEDS: Clindamycin/D5W 900 MG in Premix Bag 1 BAG IVPB SCH ×3 (06:25→21:56)
[2018-06-18] MEDS ORDERED: Potassium Chloride 10 MEQ in Premix Bag 1 BAG IVPB SCH (07:00)
[2018-06-18] MEDS: Mometasone 200 MCG HFA INHALER INH SCH ×2 (07:48→19:40)
[2018-06-18] MEDS: Potassium Chloride 20 MEQ TAB PO SCH (08:18)
--- NOTE | 2018-06-18 10:39 | PDOC.PN ---
- Subjective Encounter Start Date: 06/18/18 (f/u diabetes) Encounter Start Time: 10:37 Subjective: Pt reports augustus came out of foot last night. Denies any n/v/abd pain /cp -: or any new concerns. - Objective Resuscitation Status: Resuscitation Status DNI:No Intubation Vital Signs & Weight: Vital Signs (12 hours) Temp Pulse Resp BP Pulse Ox 06/18/18 08:07 99.3 F 88 18 93 L 06/18/18 07:56 99.3 F 88 18 175/85 H 93 L 06/18/18 07:48 86 16 97 06/18/18 04:00 98.7 F 93 16 138/83 94 L 06/18/18 00:00 99.0 F 103 H 16 174/65 H 95 I&O: 06/17/18 06/18/18 06/19/18 06:59 06:59 06:59 Intake Total 1820 Balance 1820 Result Diagrams: 06/18/18 05:24 06/18/18 19:09 Additional Labs: Accuchecks 06/17/18 21:14 POC Glucose 128 H Phys Exam - Physical Examination Constitutional: NAD Respiratory: no wheezing, no rales, no rhonchi Cardiovascular: RRR, no significant murmur Gastrointestinal: soft, non-tender, no distention right foot with open wound on plantar surface with some purulent drainage Neurological: non-focal Psychiatric: normal affect Dx/Plan (1) Foot infection Code(s): L08.9 - LOCAL INFECTION OF THE SKIN AND SUBCUTANEOUS TISSUE, UNSP Status: Acute (2) Diabetes mellitus Code(s): E11.9 - TYPE 2 DIABETES MELLITUS WITHOUT COMPLICATIONS Status: Chronic Qualifiers: Diabetes mellitus type: type 2 Diabetes mellitus intermediate designer insulin use: without intermediate designer use Diabetes mellitus complication status: with kidney complications Chronic kidney disease stage: stage 3 (moderate) (3) Anxiety and depression Code(s): F41.8 - OTHER SPECIFIED ANXIETY DISORDERS Status: Chronic (4) CKD (chronic kidney disease), stage III Code(s): N18.3 - CHRONIC KIDNEY DISEASE, STAGE 3 (MODERATE) Status: Chronic (5) Diabetic neuropathy Code(s): E11.40 - TYPE 2 DIABETES MELLITUS WITH DIABETIC NEUROPATHY, UNSP Status: Chronic Qualifiers: (6) Dyslipidemia Code(s): E78.5 - HYPERLIPIDEMIA, UNSPECIFIED Status: Chronic (7) Fibromyalgia Status: Chronic (8) GERD (gastroesophageal reflux disease) Code(s): K21.9 - GASTRO-ESOPHAGEAL REFLUX DISEASE WITHOUT ESOPHAGITIS Status: Chronic Qualifiers: Esophagitis presence: esophagitis presence not specified Qualified Code(s) : K21.9 - Gastro-esophageal reflux disease without esophagitis (9) Hypertension Code(s): I10 - ESSENTIAL (PRIMARY) HYPERTENSION Status: Chronic Qualifiers: Hypertension type: essential hypertension Qualified Code(s): I10 - Essential (primary) hypertension (10) Morbid obesity with BMI of 40.0-44.9, adult Code(s): E66.01 - MORBID (SEVERE) OBESITY DUE TO EXCESS CALORIES; Z68.41 - BODY MASS INDEX (BMI) 40.0-44.9, ADULT Status: Chronic (11) SONYA on CPAP Code(s): G47.33 - OBSTRUCTIVE SLEEP APNEA (ADULT) (PEDIATRIC); Z99.89 - DEPENDENCE ON OTHER ENABLING MACHINES AND DEVICES Status: Chronic (12) Rheumatoid arthritis Code(s): M06.9 - RHEUMATOID ARTHRITIS, UNSPECIFIED Status: Chronic (13) Anemia Code(s): D64.9 - ANEMIA, UNSPECIFIED Status: Chronic Qualifiers: Anemia type: unspecified type Qualified Code(s): D64.9 - Anemia, unspecified - Plan * foot infection secondary to hardware and poor healing - antibiotics and surgery per Dr. Maya * DM - continue insulin for now. Return to oral meds when taking PO regularly * Asthma - no signs of exacerbation, continue scheduled inhaled steroid and prn duoneb * autoimmune disorders - not on meds for this - continue prn pain management * Mood d/o -continue home meds * * Elevated pressures - may be related to pain, manage this. If persistently elevated after surgery, consider amlodipine for treatment. Pt has been off otto- i due to renal function * * renal function slightly improved - continue IVF hydration for now, change fluids to include potassium * IV potassium ordered this morning as low - first dose, will likely need additional post-operatively. * * Anemia - chronic intermittent and stable. Continue monitoring,and needs outpatient follow up. * * dvt prophy - address post-op per Dr. Maya * GI prophy - not indicated * code status DNI * * reviewed plan of care and role of hospitalist with patient, no questions or further needs at end of eval..
[2018-06-18] MEDS ORDERED: NS 0.9% w/ 40 MEQ KCL 1,000 ML IV SCH (10:45)
[2018-06-18] MEDS ORDERED: Morphine 4 MG/ML VIAL ONE (10:56)
[2018-06-18] MEDS ORDERED: Fentanyl 100 MCG/2 ML VIAL ONE ×3 (11:57→13:08)
[2018-06-18] MEDS ORDERED: Promethazine HCl 25 MG/ML VIAL IM PRN (12:21)
[2018-06-18] MEDS ORDERED: Ondansetron HCl/PF 4 MG/2 ML Vial IVP PRN (12:21)
[2018-06-18] MEDS ORDERED: Promethazine HCl 25 MG/ML VIAL SLOW IVP PRN (12:21)
--- NOTE | 2018-06-18 12:59 | RAD ---
RIGHT ANKLE 2 VIEW SERIES: INDICATION: Intraoperative imaging of right ankle. History of fracture. FINDINGS: Fluoroscopic imaging reveals an overlying cast which limits detail. There is fracture deformity of t he medial and lateral malleoli. Posterior malleolar fracture fragment is also seen. Alignment is ne ar anatomic. IMPRESSION: Limited visualization due to overlying casting on the provided intraoperative fluoroscopic views. Tr imalleolar fracture is present. POS: [facility]
[2018-06-18] MEDS: Sodium Chloride 0.9% 1,000 ML IV SCH (13:49)
--- NOTE | 2018-06-18 14:42 | OP ---
DATE OF OPERATION: 06/18/2018 OPERATIONS: 1. Irrigation and debridement of right foot wound and right ankle wound. 2. Closed reduction of ankle fracture with short leg cast placement. PREOPERATIVE DIAGNOSIS: Right ankle and foot infection with bimalleolar ankle fracture. POSTOPERATIVE DIAGNOSIS: Right ankle and foot infection with bimalleolar ankle fracture. COMPLICATIONS: None. ESTIMATED BLOOD LOSS: Minimal. SURGEON: Davide Maya M.D. ASSISTANT TO THE CEO: Quique Stephenson PA-C. INDICATIONS: Ms. Avery is a 52-year-old female who has developed a complicated problem regarding her right ankle. She had an unstable ankle fracture which was treated with Steinmann pin fixation. She developed an open wound over her heel with infection. The pin has fallen from the wound. She now h as extension of infection into her ankle and medial malleolus. She has been indicated for irrigation and debridement with casting for stabilization of her ankle. DESCRIPTION OF PROCEDURE: Ms. Avery was identified in the preoperative holding area. Her correct ex tremity was marked. She was carried to the operating room. She was positioned supine. General anes thesia was induced. A multidisciplinary timeout was performed. The right lower extremity was preppe d and draped in sterile fashion. We began the procedure with debridement of the ankle wounds. The foot wound was trimmed with a scalp el. We removed callus formation and purulent material. We then used a combination of curettes and r ongeurs to debride the wound more deeply. We worked down to the level of the bone. We thoroughly ir rigated with copious lavage. Next, we used a sterile needle to aspirate the medial malleolus. We ob tained some bloody fluid, but also purulent fluid from the medial malleolus area. We made a 2 cm inc ision and thoroughly irrigated this area as well. Again, upon opening the wound, there was purulent material. We sharply debrided the deep tissues. At this point, we obtained intraoperative x-rays. The ankle was subluxated laterally. This was abbi ectable with a mold and a lateral to medial force on the foot. We then placed a well-padded short le g cast and took again intraoperative x-rays while we molded the cast. Once the cast was well hardene d, we cut a window over the medial malleolus and plantar foot to allow access to the underlying wound s. This allowed access for packing of the wound as needed. We placed in a strap over the cast windo w and the patient was taken to the recovery room in good condition.
[2018-06-18] MEDS ORDERED: PROPOFOL 200 MG/20 ML VIAL ONE (15:41)
[2018-06-18] MEDS ORDERED: Ondansetron HCl/PF 4 MG/2 ML Vial ONE (15:41)
[2018-06-18] MEDS ORDERED: Lidocaine 1% PF 5 ML VIAL ONE (15:41)
[2018-06-18] MEDS: Vancomycin HCl 1.5 GM in Sodium Chloride 0.9% 250 ML 300 ML IVPB SCH (16:40)
[2018-06-18 19:29] LABS: Anion Gap 13 mmol/L (10-20); BUN (Urea Nitrogen) 17 mg/dL (9.8-20.1); Calc. Creatinine Clearance 70 mL/min (70-130); Calcium 8.7 mg/dL (7.8-10.44); Carbon Dioxide 24 mmol/L (22-29); Chloride 100 mmol/L (98-107); Estimated GFR-MDRD 40; Glucose 241 mg/dL (70-105); Potassium 3.9 mmol/L (3.5-5.1); Sodium 133 mmol/L (136-145)
--- NOTE | 2018-06-18 19:32 | PDOC.EVN ---
Event Note - Event Note Event Note: repeated potassium this evening and now 3.9, will change IVF to NS + 20 meq potassium and continue hydrating overnight. Anticipate this can be d/c in AM. The goal is to optimize renal function, which is improved today.
[2018-06-18] MEDS: HYDROcodone/Acetaminophen 5/325 mg Tablet PO PRN (21:57)
[2018-06-18] MEDS: Rosuvastatin 10 MG TAB PO SCH (21:57)
[2018-06-18] MEDS: Mirtazapine 15 MG TAB PO SCH (21:57)
[2018-06-18] MEDS: NS 0.9% w/ 20 MEQ KCL 1,000 ML/1,000 ML BAG IV SCH (23:37)
[2018-06-19] MEDS: HYDROcodone/Acetaminophen 5/325 mg Tablet PO PRN ×3 (02:01→14:16)
[2018-06-19] MEDS: Clindamycin/D5W 900 MG in Premix Bag 1 BAG IVPB SCH ×3 (05:29→22:04)
[2018-06-19 05:49] LABS: #Eosinphils 0.4 thou/uL (0.0-0.7); #Lymphocytes 1.7 thou/uL (1.20-3.40); #Monocytes 0.6 thou/uL (0.11-0.59); #Neutrophils 4.7 thou/uL (1.40-6.50); %Basophils 0.3 % (0.0-1.0); %Eosinophils 4.8 % (0.0-10.0); %Lymphocytes 23.2 % (21.0-51.0); %Monocytes 8.5 % (0.0-10.0); %Neutrophils 63.3 % (42.0-75.0); Hemoglobin 9.1 g/dL (12.0-16.0); Mean Corpuscular HGB CONC 34.9 g/dL (32.0-36.0); Mean Corpuscular Hemoglobin 29.2 pg (27.0-31.0); Mean Corpuscular Volume 83.4 fL (78.0-98.0); Mean Platelet Volume 7.7 fL (7.4-10.4); Platelet Count 258 thou/uL (130-400); RBC Distribution Width 12.6 % (11.5-14.5); Red Blood Cell (RBC) Count 3.13 mill/uL (4.20-5.40); White Blood Cell (WBC) Count 7.5 thou/uL (4.8-10.8)
[2018-06-19 06:08] LABS: Anion Gap 12 mmol/L (10-20); BUN (Urea Nitrogen) 15 mg/dL (9.8-20.1); Calc. Creatinine Clearance 85 mL/min (70-130); Calcium 8.5 mg/dL (7.8-10.44); Carbon Dioxide 27 mmol/L (22-29); Chloride 102 mmol/L (98-107); Estimated GFR-MDRD 50; Glucose 156 mg/dL (70-105); Sodium 138 mmol/L (136-145)
[2018-06-19] MEDS: Mometasone 200 MCG HFA INHALER INH SCH ×2 (06:41→18:26)
[2018-06-19] MEDS: Enoxaparin Sodium 40 MG/0.4 ML SYRINGE SC SCH (09:29)
[2018-06-19] MEDS: Potassium Chloride 20 MEQ TAB PO SCH (09:29)
[2018-06-19] MEDS: NS 0.9% w/ 20 MEQ KCL 1,000 ML/1,000 ML BAG IV SCH ×2 (09:30→22:14)
[2018-06-19] MEDS: HumaLOG 300 UNITS/3 ML VIAL SC PRN ×3 (11:28→23:46)
--- NOTE | 2018-06-19 15:50 | PDOC.PN ---
- Subjective Encounter Start Date: 06/19/18 Encounter Start Time: 10:10 -: old records requested/rev Pt seen and exmained, chart reviewe dinits entirety, this ismy first visit iw this patient admitted for suspected osteo and post op infection after ankle fx and ex fix iwth pins. pins working out and bone soft, cx iwth GBS and a GNR. Kevin abx, no f/c, no n/V/D/c. No acute events Hardware removed, fx casted. All systems reviewed and neg x as per HPI - Objective Resuscitation Status: Resuscitation Status DNI:No Intubation MAR Reviewed: Yes Vital Signs & Weight: Vital Signs (12 hours) Temp Pulse Resp BP Pulse Ox 06/19/18 12:00 97 06/19/18 11:24 99.5 F 100 20 130/82 97 06/19/18 08:00 98.9 F 91 18 122/55 L 92 L 06/19/18 06:41 87 18 92 L 06/19/18 04:00 98.4 F 84 16 136/69 98 Weight Admit Weight 211 lb 6 oz Weight 211 lb 6 oz I&O: 06/18/18 06/19/18 06/20/18 06:59 06:59 06:59 Intake Total 3800 Balance 3800 Result Diagrams: 06/19/18 05:06 06/19/18 05:06 Additional Labs: Accuchecks 06/19/18 06/19/18 06/18/18 10:51 05:43 20:59 POC Glucose 182 H 157 H 181 H 06/18/18 16:05 POC Glucose 157 H Radiology Reviewed by me: Yes EKG Reviewed by me: Yes Phys Exam - Physical Examination Constitutional: NAD HEENT: PERRLA, moist MMs, sclera anicteric, oral pharynx no lesions Neck: no nodes, no JVD, supple, full ROM Respiratory: no wheezing, no rales, no rhonchi, clear to auscultation bilateral Cardiovascular: RRR, no significant murmur, no rub Gastrointestinal: soft, non-tender, no distention, positive bowel sounds Musculoskeletal: pulses present Neurological: non-focal, normal sensation, moves all 4 limbs Lymphatic: no nodes Psychiatric: normal affect, A&O x 3 Skin: no rash, normal turgor, cap refill <2 seconds Dx/Plan (1) Anemia Code(s): D64.9 - ANEMIA, UNSPECIFIED Status: Chronic Qualifiers: Anemia type: unspecified type Qualified Code(s): D64.9 - Anemia, unspecified (2) Diabetes mellitus Code(s): E11.9 - TYPE 2 DIABETES MELLITUS WITHOUT COMPLICATIONS Status: Chronic Qualifiers: Diabetes mellitus type: type 2 Diabetes mellitus long term care pharmacist insulin use: without long term care pharmacist use Diabetes mellitus complication status: with kidney complications Chronic kidney disease stage: stage 3 (moderate) (3) Acute osteomyelitis of metatarsal bone of right foot Code(s): M86.171 - OTHER ACUTE OSTEOMYELITIS, RIGHT ANKLE AND FOOT Status: Acute (4) Anxiety and depression Code(s): F41.8 - OTHER SPECIFIED ANXIETY DISORDERS Status: Chronic (5) CKD (chronic kidney disease), stage III Code(s): N18.3 - CHRONIC KIDNEY DISEASE, STAGE 3 (MODERATE) Status: Chronic (6) Diabetic neuropathy Code(s): E11.40 - TYPE 2 DIABETES MELLITUS WITH DIABETIC NEUROPATHY, UNSP Status: Chronic Qualifiers: (7) Dyslipidemia Code(s): E78.5 - HYPERLIPIDEMIA, UNSPECIFIED Status: Chronic (8) Fibromyalgia Status: Chronic (9) GERD (gastroesophageal reflux disease) Code(s): K21.9 - GASTRO-ESOPHAGEAL REFLUX DISEASE WITHOUT ESOPHAGITIS Status: Chronic Qualifiers: Esophagitis presence: esophagitis presence not specified Qualified Code(s) : K21.9 - Gastro-esophageal reflux disease without esophagitis (10) Hypertension Code(s): I10 - ESSENTIAL (PRIMARY) HYPERTENSION Status: Chronic Qualifiers: Hypertension type: essential hypertension Qualified Code(s): I10 - Essential (primary) hypertension (11) Rheumatoid arthritis Code(s): M06.9 - RHEUMATOID ARTHRITIS, UNSPECIFIED Status: Chronic - Plan * .
[2018-06-19 16:40] LABS: Vancomycin, Trough 13.7 ug/mL
[2018-06-19] MEDS: Vancomycin HCl 1.5 GM in Sodium Chloride 0.9% 250 ML 300 ML IVPB SCH (17:32)
[2018-06-19] MEDS: Mirtazapine 15 MG TAB PO SCH (22:05)
[2018-06-19] MEDS: Rosuvastatin 10 MG TAB PO SCH (22:05)
[2018-06-20 05:11] LABS: #Eosinphils 0.3 thou/uL (0.0-0.7); #Lymphocytes 1.9 thou/uL (1.20-3.40); #Monocytes 0.6 thou/uL (0.11-0.59); #Neutrophils 4.8 thou/uL (1.40-6.50); %Basophils 0.3 % (0.0-1.0); %Eosinophils 4.4 % (0.0-10.0); %Lymphocytes 24.9 % (21.0-51.0); %Monocytes 8.1 % (0.0-10.0); %Neutrophils 62.3 % (42.0-75.0); Hemoglobin 9.5 g/dL (12.0-16.0); Mean Corpuscular HGB CONC 33.3 g/dL (32.0-36.0); Mean Corpuscular Hemoglobin 28.3 pg (27.0-31.0); Mean Platelet Volume 7.8 fL (7.4-10.4); Platelet Count 261 thou/uL (130-400); RBC Distribution Width 12.5 % (11.5-14.5); Red Blood Cell (RBC) Count 3.34 mill/uL (4.20-5.40); White Blood Cell (WBC) Count 7.6 thou/uL (4.8-10.8)
[2018-06-20] MEDS: Clindamycin/D5W 900 MG in Premix Bag 1 BAG IVPB SCH ×2 (05:28→13:52)
[2018-06-20 05:36] LABS: Anion Gap 12 mmol/L (10-20); BUN (Urea Nitrogen) 12 mg/dL (9.8-20.1); Calc. Creatinine Clearance 82 mL/min (70-130); Calcium 8.6 mg/dL (7.8-10.44); Carbon Dioxide 26 mmol/L (22-29); Chloride 105 mmol/L (98-107); Estimated GFR-MDRD 48; Glucose 142 mg/dL (70-105); Magnesium 1.6 mg/dL (1.6-2.6); Potassium 3.2 mmol/L (3.5-5.1); Sodium 140 mmol/L (136-145)
[2018-06-20] MEDS: HYDROcodone/Acetaminophen 5/325 mg Tablet PO PRN ×2 (05:37→13:58)
[2018-06-20] MEDS: HumaLOG 300 UNITS/3 ML VIAL SC PRN ×3 (05:38→17:33)
[2018-06-20] MEDS: Mometasone 200 MCG HFA INHALER INH SCH ×2 (07:38→19:36)
[2018-06-20] MEDS: Potassium Chloride 20 MEQ TAB PO SCH (08:14)
[2018-06-20] MEDS: Enoxaparin Sodium 40 MG/0.4 ML SYRINGE SC SCH (08:14)
[2018-06-20] MEDS ORDERED: IPRATROPIUM INH PRN (13:46)
[2018-06-20] MEDS ORDERED: PROVENTIL INHALER 6.7 G (200 INHALATIONS) INH PRN (13:46)
[2018-06-20] MEDS ORDERED: ALBUTEROL INH PRN (13:46)
[2018-06-20] MEDS: NS 0.9% w/ 20 MEQ KCL 1,000 ML/1,000 ML BAG IV SCH (13:52)
[2018-06-20] MEDS ORDERED: Non-Formulary Item 1 EACH (Metformin Hcl [Metformin Hcl] 1,000 MG) PO SCH (17:00)
[2018-06-20] MEDS: metFORMIN 500 MG TAB PO SCH (17:33)
[2018-06-20] MEDS: Vancomycin HCl 1.5 GM in Sodium Chloride 0.9% 250 ML 300 ML IVPB SCH (17:34)
[2018-06-20] MEDS: Rosuvastatin 10 MG TAB PO SCH (20:29)
[2018-06-20] MEDS: Mirtazapine 15 MG TAB PO SCH ×2 (20:30→23:00)
[2018-06-20] MEDS: Cipro 250 MG TAB PO SCH (20:30)
--- NOTE | 2018-06-20 23:29 | CON ---
DATE OF CONSULTATION: 06/20/2018 REASON FOR CONSULTATION: Postop infection, ankle fracture site. HISTORY OF PRESENT ILLNESS: A 52-year-old patient has a history of type 2 diabetes, hypertension, an d SLE/celiac disease with right fifth toe amputation, which had some wound healing problems and ended up requiring IV antimicrobial therapy and recurrent debridement with eventual healing. We then sust ained a fracture of the right ankle. She underwent open reduction and fixation by Dr. Del Toro at the end of April and she developed an open wound over the heel and the pin was extruded from the wound an d she had extension of the infection into ankle medial malleolus. Dr. Maya went in and debrided the ankle wounds, callus formation was removed with purulent material. At this point, all the way t o the level of the bone, culture, lavage was carried out. A sterile needle was used to aspirate the medial malleolus and bloody purulent fluid was obtained from the area. A 2 cm incision was carried o ut and the area was irrigated. When the wound was opened, there was purulent material. Currently, s he denies any headaches, visual symptoms, sore throat, odynophagia, dysphagia. No dyspnea or cough, no chest pain, no abdominal pain or diarrhea. No genitourinary symptoms. No other joint symptoms. PAST MEDICAL HISTORY: Type 2 diabetes, hypertension, glaucoma, fibromyalgia, COPD, SONYA, seizure diso rder, rheumatoid arthritis, psoriasis, SLE, celiac disease, osteoarthritis, right foot fifth toe oste omyelitis with amputation, protracted IV antimicrobial therapy. PAST SURGICAL HISTORY: Includes also hysterectomy, tubal ligation, cholecystectomy, right breast cys t removal, hemorrhoidectomy. ALLERGIES: PENICILLIN, CEPHALOSPORINS with rash. CURRENT MEDICATIONS: Include, Tylenol, Proventil, DuoNeb, alogliptin, Dulcolax, clindamycin, Sublima ze, hydralazine, Remeron, Asmanex, and vancomycin. SOCIAL HISTORY: Former smoker. FAMILY HISTORY: Diabetes. PHYSICAL EXAMINATION: VITAL SIGNS: Essentially T-max 100.6, other vital signs are normal. GENERAL: Awake, alert, oriented, no distress. The right lower extremity with a cast. Peripheral IV access. No lymphadenopathy. HEENT: Ocular movements conjugate. Oral cavity normal. NECK: Supple. LUNGS: With symmetric clear breath sounds. HEART: S1, S2, regular rate. No S3, S4. ABDOMEN: Soft, not distended or tender. No ascites. No bladder distention. EXTREMITIES: She moves extremities equally with limitations imposed by the casting and inflammatory process right foot. NEUROLOGIC: Cognitive function is intact. LABORATORY DATA: White cell count down to 7.6, hemoglobin 9.5, MCV 85, differential normal, platelet s 261. Potassium 3.2, creatinine is at 1.18. Liver profile within normal limits. Alkaline phosphat ase normal. CRP 2.87, albumin 4.2. Microbiology group B strep from the heel wound and group B strep and Enterobacter cloacae. ASSESSMENT: Type 2 diabetes, celiac disease/systemic lupus erythematosus and fracture, right ankle w ith postop infection, extrusion of the pin. The patient has had casting place, the area was washed o ut and there is deep penetration of the wound. We will switch her to meropenem and eventually transi tioned to Invanz for outpatient treatment. PICC line placement. Treat for at least 4 weeks. Monito r C-reactive protein.
[2018-06-21] MEDS: NS 0.9% w/ 20 MEQ KCL 1,000 ML/1,000 ML BAG IV SCH ×3 (00:56→21:04)
[2018-06-21 05:00] LABS: Anion Gap 15 mmol/L (10-20); BUN (Urea Nitrogen) 11 mg/dL (9.8-20.1); Calc. Creatinine Clearance 91 mL/min (70-130); Calcium 8.6 mg/dL (7.8-10.44); Carbon Dioxide 22 mmol/L (22-29); Chloride 108 mmol/L (98-107); Estimated GFR-MDRD 53; Glucose 140 mg/dL (70-105); Potassium 3.4 mmol/L (3.5-5.1); Sodium 142 mmol/L (136-145)
[2018-06-21] MEDS: Cipro 250 MG TAB PO SCH ×2 (05:36→20:07)
[2018-06-21] MEDS: HumaLOG 300 UNITS/3 ML VIAL SC PRN (06:44)
[2018-06-21] MEDS: Mometasone 200 MCG HFA INHALER INH SCH ×2 (07:22→19:32)
[2018-06-21] MEDS: Enoxaparin Sodium 40 MG/0.4 ML SYRINGE SC SCH (09:40)
[2018-06-21] MEDS: Potassium Chloride 20 MEQ TAB PO SCH (09:41)
[2018-06-21] MEDS: metFORMIN 500 MG TAB PO SCH ×2 (09:41→16:39)
[2018-06-21] MEDS: Alogliptin 25 MG TAB PO SCH (09:41)
--- NOTE | 2018-06-21 13:57 | SPC ---
LEFT UPPER EXTREMITY PICC LINE ULTRASOUND AND FLUOROSCOPIC GUIDANCE: INDICATION: Central Venous Access PROCEDURE: After informed consent had been obtained, the patient was placed on the interventional suite table in a supine position. The left arm was prepped and draped in a standard sterile fashion. Topical anes thesia was achieved utilizing 1% Lidocaine and sodium bicarbonate. Under real-time sonography, the b asilic vein of the left upper extremity was accessed with a small caliber needle with venous flash pr esent at the needle hub. A guidewire was then advanced in to the needle, and under real-time fluoros copy, the guidewire was advanced to the level of the inferior vena cava to confirm appropriate venous placement. A small skin incision was made and the needle was removed. Over the guidewire, a single lumen PICC line was cut to 45 cm. The PICC line was advanced under real-time fluoroscopy over the g uidewire to the level of the cavoatrial junction. The guidewire and peelaway sheath were then remove d. PICC line flushed and aspirated appropriately and was secured to the left upper extremity. There were no procedural complications. FLUOROSCOPY DATA: 444 mGy*^cm2, 0 minutes intermittent fluoroscopy. IMPRESSION: Technically successful ultrasound and fluoroscopic-guided left PICC line placement, as above. POS: [facility]
[2018-06-21 16:44] LABS: Vancomycin, Trough 6.4 ug/mL
[2018-06-21] MEDS: HYDROcodone/Acetaminophen 5/325 mg Tablet PO PRN ×2 (16:45→23:58)
[2018-06-21] MEDS ORDERED: Vancomycin HCl 1 GM in Sodium Chloride 0.9% 250 ML 250 ML IVPB SCH (17:15)
[2018-06-21] MEDS: Vancomycin HCl 1.5 GM in Sodium Chloride 0.9% 250 ML 300 ML IVPB SCH (18:29)
[2018-06-21] MEDS: Rosuvastatin 10 MG TAB PO SCH (20:07)
[2018-06-21] MEDS: Mirtazapine 15 MG TAB PO SCH ×2 (20:08→21:01)
[2018-06-21] MEDS: Melatonin 3 MG TAB PO PRN (23:59)
[2018-06-22] MEDS: Cipro 250 MG TAB PO SCH ×2 (05:51→20:50)
[2018-06-22] MEDS: Mometasone 200 MCG HFA INHALER INH SCH ×2 (06:43→18:50)
[2018-06-22] MEDS: NS 0.9% w/ 20 MEQ KCL 1,000 ML/1,000 ML BAG IV SCH ×2 (06:55→12:34)
[2018-06-22] MEDS: Potassium Chloride 20 MEQ TAB PO SCH (08:57)
[2018-06-22] MEDS: metFORMIN 500 MG TAB PO SCH ×2 (08:57→17:44)
[2018-06-22] MEDS: Enoxaparin Sodium 40 MG/0.4 ML SYRINGE SC SCH (09:03)
[2018-06-22] MEDS: Alogliptin 25 MG TAB PO SCH (09:03)
[2018-06-22] MEDS: HYDROcodone/Acetaminophen 5/325 mg Tablet PO PRN ×3 (09:05→17:44)
[2018-06-22] MEDS: Vancomycin HCl 1.5 GM in Sodium Chloride 0.9% 250 ML 300 ML IVPB SCH (17:44)
[2018-06-22] MEDS: Mirtazapine 15 MG TAB PO SCH ×2 (20:51)
[2018-06-22] MEDS: Rosuvastatin 10 MG TAB PO SCH (20:51)
[2018-06-23] MEDS: HYDROcodone/Acetaminophen 5/325 mg Tablet PO PRN ×5 (01:13→21:01)
[2018-06-23] MEDS: Cipro 250 MG TAB PO SCH ×2 (05:51→21:00)
[2018-06-23] MEDS: NS 0.9% w/ 20 MEQ KCL 1,000 ML/1,000 ML BAG IV SCH (05:52)
[2018-06-23] MEDS: Mometasone 200 MCG HFA INHALER INH SCH ×2 (07:05→19:04)
[2018-06-23] MEDS: Potassium Chloride 20 MEQ TAB PO SCH (08:29)
[2018-06-23] MEDS: metFORMIN 500 MG TAB PO SCH ×2 (08:30→16:46)
[2018-06-23] MEDS: Alogliptin 25 MG TAB PO SCH (08:31)
[2018-06-23] MEDS: Enoxaparin Sodium 40 MG/0.4 ML SYRINGE SC SCH (08:31)
[2018-06-23] MEDS: hydrALAZINE 20 MG/ML VIAL SLOW IVP PRN (16:46)
[2018-06-23 17:34] LABS: Vancomycin, Trough 15.2 ug/mL
[2018-06-23] MEDS: Vancomycin HCl 1.5 GM in Sodium Chloride 0.9% 250 ML 300 ML IVPB SCH (17:55)
[2018-06-23] MEDS: traMADol HCl 50 MG TAB PO PRN (21:00)
[2018-06-23] MEDS: Mirtazapine 15 MG TAB PO SCH ×2 (21:00→21:01)
[2018-06-23] MEDS: Rosuvastatin 10 MG TAB PO SCH (21:00)
[2018-06-23] MEDS: Melatonin 3 MG TAB PO PRN (21:01)
[2018-06-24] MEDS: Mometasone 200 MCG HFA INHALER INH SCH ×2 (06:32→21:30)
[2018-06-24] MEDS: Cipro 250 MG TAB PO SCH ×2 (06:51→21:00)
[2018-06-24] MEDS: HYDROcodone/Acetaminophen 5/325 mg Tablet PO PRN ×3 (06:51→21:01)
[2018-06-24] MEDS: traMADol HCl 50 MG TAB PO PRN ×2 (06:52→21:00)
[2018-06-24] MEDS: metFORMIN 500 MG TAB PO SCH ×2 (08:59→17:07)
[2018-06-24] MEDS: Potassium Chloride 20 MEQ TAB PO SCH (09:00)
[2018-06-24] MEDS: Alogliptin 25 MG TAB PO SCH (09:01)
[2018-06-24] MEDS: Enoxaparin Sodium 40 MG/0.4 ML SYRINGE SC SCH (09:01)
[2018-06-24] MEDS: NS 0.9% w/ 20 MEQ KCL 1,000 ML/1,000 ML BAG IV SCH ×2 (09:05→18:14)
[2018-06-24] MEDS: HumaLOG 300 UNITS/3 ML VIAL SC PRN (12:54)
[2018-06-24] MEDS: Vancomycin HCl 1.5 GM in Sodium Chloride 0.9% 250 ML 300 ML IVPB SCH (18:15)
[2018-06-24] MEDS: Mirtazapine 15 MG TAB PO SCH ×2 (20:47→21:00)
[2018-06-24] MEDS: Rosuvastatin 10 MG TAB PO SCH (21:00)
[2018-06-24] MEDS: hydrALAZINE 20 MG/ML VIAL SLOW IVP PRN (21:01)
[2018-06-24] MEDS ORDERED: Lorazepam 2 MG/ML VIAL SLOW IVP PRN (21:59)
[2018-06-24] MEDS: Labetalol HCl 100 MG/20 ML VIAL SLOW IVP PRN (22:28)
[2018-06-24] MEDS ORDERED: Fluticasone Propionate Nasal Spray 16 gm Bottle NASAL PRN (22:59)
[2018-06-25] MEDS ORDERED: Labetalol HCl 100 MG/20 ML VIAL SLOW IVP PRN (00:22)
[2018-06-25] MEDS: Mometasone 200 MCG HFA INHALER INH SCH ×2 (06:01→18:38)
[2018-06-25] MEDS: Cipro 250 MG TAB PO SCH ×2 (06:59→20:57)
[2018-06-25] MEDS: metFORMIN 500 MG TAB PO SCH ×2 (08:57→17:05)
[2018-06-25] MEDS: Potassium Chloride 20 MEQ TAB PO SCH (08:57)
[2018-06-25] MEDS: Alogliptin 25 MG TAB PO SCH (08:57)
[2018-06-25] MEDS: Enoxaparin Sodium 40 MG/0.4 ML SYRINGE SC SCH (08:57)
--- NOTE | 2018-06-25 10:04 | PDOC.PN ---
- Subjective Encounter Start Date: 06/20/18 Encounter Start Time: 10:30 no evemts, sugars running high, restarting po meds. to get PICC, needs tank terminal gauger abx. Id consulted no f/C, no N/v/D/C, no Cp or sOB all sytems reviewed and neg x as above - Objective Resuscitation Status: Resuscitation Status DNI:No Intubation MAR Reviewed: Yes Vital Signs & Weight: Vital Signs (12 hours) Temp Pulse Resp BP BP BP Pulse Ox 06/25/18 07:30 98.5 F 84 22 H 148/108 H 95 06/25/18 06:01 98 16 96 06/25/18 04:00 98.7 F 96 20 148/65 H 90 L 06/25/18 00:05 165/82 H 06/25/18 00:00 99.5 F 89 18 173/88 H 93 L 06/24/18 22:28 83 196/92 H Weight Admit Weight 211 lb 6 oz Weight 211 lb 6 oz I&O: 06/24/18 06/25/18 06/26/18 06:59 06:59 06:59 Intake Total 2550 1999 Balance 2550 1999 Result Diagrams: 06/20/18 04:39 06/21/18 04:30 Additional Labs: Accuchecks 06/25/18 06/24/18 06/24/18 05:42 21:03 17:07 POC Glucose 132 H 117 H 133 H 06/24/18 11:39 POC Glucose 283 H Phys Exam - Physical Examination Constitutional: NAD HEENT: PERRLA, moist MMs, sclera anicteric, oral pharynx no lesions Neck: no nodes, no JVD, supple, full ROM Respiratory: no wheezing, no rales, no rhonchi, clear to auscultation bilateral Cardiovascular: RRR, no significant murmur, no rub Gastrointestinal: soft, non-tender, no distention, positive bowel sounds Musculoskeletal: no edema, pulses present LLE in cast Neurological: normal sensation, moves all 4 limbs Lymphatic: no nodes Psychiatric: normal affect, A&O x 3 Skin: no rash, normal turgor, cap refill <2 seconds Dx/Plan (1) Anemia Code(s): D64.9 - ANEMIA, UNSPECIFIED Status: Chronic Qualifiers: Anemia type: unspecified type Qualified Code(s): D64.9 - Anemia, unspecified (2) Diabetes mellitus Code(s): E11.9 - TYPE 2 DIABETES MELLITUS WITHOUT COMPLICATIONS Status: Chronic Qualifiers: Diabetes mellitus type: type 2 Diabetes mellitus tank terminal gauger insulin use: without tank terminal gauger use Diabetes mellitus complication status: with kidney complications Chronic kidney disease stage: stage 3 (moderate) (3) Acute osteomyelitis of metatarsal bone of right foot Code(s): M86.171 - OTHER ACUTE OSTEOMYELITIS, RIGHT ANKLE AND FOOT Status: Acute (4) Anxiety and depression Code(s): F41.8 - OTHER SPECIFIED ANXIETY DISORDERS Status: Chronic (5) CKD (chronic kidney disease), stage III Code(s): N18.3 - CHRONIC KIDNEY DISEASE, STAGE 3 (MODERATE) Status: Chronic (6) Diabetic neuropathy Code(s): E11.40 - TYPE 2 DIABETES MELLITUS WITH DIABETIC NEUROPATHY, UNSP Status: Chronic Qualifiers: (7) Dyslipidemia Code(s): E78.5 - HYPERLIPIDEMIA, UNSPECIFIED Status: Chronic (8) Fibromyalgia Status: Chronic (9) GERD (gastroesophageal reflux disease) Code(s): K21.9 - GASTRO-ESOPHAGEAL REFLUX DISEASE WITHOUT ESOPHAGITIS Status: Chronic Qualifiers: Esophagitis presence: esophagitis presence not specified Qualified Code(s) : K21.9 - Gastro-esophageal reflux disease without esophagitis (10) Hypertension Code(s): I10 - ESSENTIAL (PRIMARY) HYPERTENSION Status: Chronic Qualifiers: Hypertension type: essential hypertension Qualified Code(s): I10 - Essential (primary) hypertension (11) Rheumatoid arthritis Code(s): M06.9 - RHEUMATOID ARTHRITIS, UNSPECIFIED Status: Chronic Qualifiers: Rheumatoid arthritis location: unspecified site Rheumatoid factor presence : unspecified presence Qualified Code(s): M06.9 - Rheumatoid arthritis, unspecified - Plan cont current plan of care, continue antibiotics * . restart home meds, PICC, ID consult, will need long temr IV abx and placement, unfunded
--- NOTE | 2018-06-25 10:08 | PDOC.PN ---
- Subjective Encounter Start Date: 06/21/18 Encounter Start Time: 11:00 sugars better, going for PICC, no F/C, no N/V/D/C, no CP or sOB. Dr Poe recommended Invanz daily and po cipro intermediate manager all systems reviewed adn neg x as above - Objective Resuscitation Status: Resuscitation Status DNI:No Intubation MAR Reviewed: Yes Vital Signs & Weight: Vital Signs (12 hours) Temp Pulse Resp BP BP BP Pulse Ox 06/25/18 07:30 98.5 F 84 22 H 148/108 H 95 06/25/18 06:01 98 16 96 06/25/18 04:00 98.7 F 96 20 148/65 H 90 L 06/25/18 00:05 165/82 H 06/25/18 00:00 99.5 F 89 18 173/88 H 93 L 06/24/18 22:28 83 196/92 H Weight Admit Weight 211 lb 6 oz Weight 211 lb 6 oz I&O: 06/24/18 06/25/18 06/26/18 06:59 06:59 06:59 Intake Total 2550 1999 Balance 2550 1999 Result Diagrams: 06/20/18 04:39 06/21/18 04:30 Additional Labs: Accuchecks 06/25/18 06/24/18 06/24/18 05:42 21:03 17:07 POC Glucose 132 H 117 H 133 H 06/24/18 11:39 POC Glucose 283 H Phys Exam - Physical Examination Constitutional: NAD HEENT: PERRLA, moist MMs, sclera anicteric, oral pharynx no lesions Neck: no nodes, no JVD, supple, full ROM Respiratory: no wheezing, no rales, no rhonchi, clear to auscultation bilateral Cardiovascular: RRR, no significant murmur, no rub Gastrointestinal: soft, non-tender, no distention, positive bowel sounds Neurological: non-focal, normal sensation, moves all 4 limbs Lymphatic: no nodes Psychiatric: normal affect, A&O x 3 Skin: no rash, normal turgor, cap refill <2 seconds Dx/Plan (1) Anemia Code(s): D64.9 - ANEMIA, UNSPECIFIED Status: Chronic Qualifiers: Anemia type: unspecified type Qualified Code(s): D64.9 - Anemia, unspecified (2) Diabetes mellitus Code(s): E11.9 - TYPE 2 DIABETES MELLITUS WITHOUT COMPLICATIONS Status: Chronic Qualifiers: Diabetes mellitus type: type 2 Diabetes mellitus nursing home insulin use: without intermediate manager use Diabetes mellitus complication status: with kidney complications Chronic kidney disease stage: stage 3 (moderate) (3) Acute osteomyelitis of metatarsal bone of right foot Code(s): M86.171 - OTHER ACUTE OSTEOMYELITIS, RIGHT ANKLE AND FOOT Status: Acute (4) Anxiety and depression Code(s): F41.8 - OTHER SPECIFIED ANXIETY DISORDERS Status: Chronic (5) CKD (chronic kidney disease), stage III Code(s): N18.3 - CHRONIC KIDNEY DISEASE, STAGE 3 (MODERATE) Status: Chronic (6) Diabetic neuropathy Code(s): E11.40 - TYPE 2 DIABETES MELLITUS WITH DIABETIC NEUROPATHY, UNSP Status: Chronic Qualifiers: (7) Dyslipidemia Code(s): E78.5 - HYPERLIPIDEMIA, UNSPECIFIED Status: Chronic (8) Fibromyalgia Status: Chronic (9) GERD (gastroesophageal reflux disease) Code(s): K21.9 - GASTRO-ESOPHAGEAL REFLUX DISEASE WITHOUT ESOPHAGITIS Status: Chronic Qualifiers: Esophagitis presence: esophagitis presence not specified Qualified Code(s) : K21.9 - Gastro-esophageal reflux disease without esophagitis (10) Hypertension Code(s): I10 - ESSENTIAL (PRIMARY) HYPERTENSION Status: Chronic Qualifiers: Hypertension type: essential hypertension Qualified Code(s): I10 - Essential (primary) hypertension (11) Rheumatoid arthritis Code(s): M06.9 - RHEUMATOID ARTHRITIS, UNSPECIFIED Status: Chronic Qualifiers: Rheumatoid arthritis location: unspecified site Rheumatoid factor presence : unspecified presence Qualified Code(s): M06.9 - Rheumatoid arthritis, unspecified - Plan cont current plan of care, continue antibiotics, PT/OT, social work coordinator * . sugars better, no intervention, awaiti dispo planning
--- NOTE | 2018-06-25 10:10 | PDOC.PN ---
- Subjective Encounter Start Date: 06/22/18 Encounter Start Time: 09:45 no complaints, no events,. PICC placed, pepe well No f/c, no N/V/d/C, no CP or SOB all systems reviewed and neg x as above - Objective Resuscitation Status: Resuscitation Status DNI:No Intubation MAR Reviewed: Yes Vital Signs & Weight: Vital Signs (12 hours) Temp Pulse Resp BP BP BP Pulse Ox 06/25/18 07:30 98.5 F 84 22 H 148/108 H 95 06/25/18 06:01 98 16 96 06/25/18 04:00 98.7 F 96 20 148/65 H 90 L 06/25/18 00:05 165/82 H 06/25/18 00:00 99.5 F 89 18 173/88 H 93 L 06/24/18 22:28 83 196/92 H Weight Admit Weight 211 lb 6 oz Weight 211 lb 6 oz I&O: 06/24/18 06/25/18 06/26/18 06:59 06:59 06:59 Intake Total 2550 1999 Balance 2550 1999 Result Diagrams: 06/20/18 04:39 06/21/18 04:30 Additional Labs: Accuchecks 06/25/18 06/24/18 06/24/18 05:42 21:03 17:07 POC Glucose 132 H 117 H 133 H 06/24/18 11:39 POC Glucose 283 H Phys Exam - Physical Examination Constitutional: NAD HEENT: PERRLA, moist MMs, sclera anicteric, oral pharynx no lesions Neck: no nodes, no JVD, supple, full ROM Respiratory: no wheezing, no rales, no rhonchi, clear to auscultation bilateral Cardiovascular: RRR, no significant murmur, no rub Gastrointestinal: soft, non-tender, no distention, positive bowel sounds Musculoskeletal: no edema, pulses present Neurological: non-focal, normal sensation, moves all 4 limbs Lymphatic: no nodes Psychiatric: normal affect, A&O x 3 Skin: no rash, normal turgor, cap refill <2 seconds Dx/Plan (1) Anemia Code(s): D64.9 - ANEMIA, UNSPECIFIED Status: Chronic Qualifiers: Anemia type: unspecified type Qualified Code(s): D64.9 - Anemia, unspecified (2) Diabetes mellitus Code(s): E11.9 - TYPE 2 DIABETES MELLITUS WITHOUT COMPLICATIONS Status: Chronic Qualifiers: Diabetes mellitus type: type 2 Diabetes mellitus remote computer terminal operator insulin use: without remote computer terminal operator use Diabetes mellitus complication status: with kidney complications Chronic kidney disease stage: stage 3 (moderate) (3) Acute osteomyelitis of metatarsal bone of right foot Code(s): M86.171 - OTHER ACUTE OSTEOMYELITIS, RIGHT ANKLE AND FOOT Status: Acute (4) Anxiety and depression Code(s): F41.8 - OTHER SPECIFIED ANXIETY DISORDERS Status: Chronic (5) CKD (chronic kidney disease), stage III Code(s): N18.3 - CHRONIC KIDNEY DISEASE, STAGE 3 (MODERATE) Status: Chronic (6) Diabetic neuropathy Code(s): E11.40 - TYPE 2 DIABETES MELLITUS WITH DIABETIC NEUROPATHY, UNSP Status: Chronic Qualifiers: (7) Dyslipidemia Code(s): E78.5 - HYPERLIPIDEMIA, UNSPECIFIED Status: Chronic (8) Fibromyalgia Status: Chronic (9) GERD (gastroesophageal reflux disease) Code(s): K21.9 - GASTRO-ESOPHAGEAL REFLUX DISEASE WITHOUT ESOPHAGITIS Status: Chronic Qualifiers: Esophagitis presence: esophagitis presence not specified Qualified Code(s) : K21.9 - Gastro-esophageal reflux disease without esophagitis (10) Hypertension Code(s): I10 - ESSENTIAL (PRIMARY) HYPERTENSION Status: Chronic Qualifiers: Hypertension type: essential hypertension Qualified Code(s): I10 - Essential (primary) hypertension (11) Rheumatoid arthritis Code(s): M06.9 - RHEUMATOID ARTHRITIS, UNSPECIFIED Status: Chronic Qualifiers: Rheumatoid arthritis location: unspecified site Rheumatoid factor presence : unspecified presence Qualified Code(s): M06.9 - Rheumatoid arthritis, unspecified - Plan cont current plan of care, continue antibiotics, social insurance administrator * .
--- NOTE | 2018-06-25 10:53 | PDOC.PN ---
- Subjective Encounter Start Date: 06/23/18 Encounter Start Time: 10:30 PT doing well, no complaint,s no needs. Denies F/C, no N/V/d/c, no cP or SOB. awaiting palcemnt options, case management working on it all systems reviewed and neg x as above - Objective Resuscitation Status: Resuscitation Status DNI:No Intubation MAR Reviewed: Yes Vital Signs & Weight: Vital Signs (12 hours) Temp Pulse Resp BP BP Pulse Ox 06/25/18 07:30 98.5 F 84 22 H 148/108 H 95 06/25/18 06:01 98 16 96 06/25/18 04:00 98.7 F 96 20 148/65 H 90 L 06/25/18 00:05 165/82 H 06/25/18 00:00 99.5 F 89 18 173/88 H 93 L Weight Admit Weight 211 lb 6 oz Weight 211 lb 6 oz I&O: 06/24/18 06/25/18 06/26/18 06:59 06:59 06:59 Intake Total 2550 1999 Balance 2550 1999 Result Diagrams: 06/20/18 04:39 06/21/18 04:30 Additional Labs: Accuchecks 06/25/18 06/24/18 06/24/18 05:42 21:03 17:07 POC Glucose 132 H 117 H 133 H 06/24/18 11:39 POC Glucose 283 H Phys Exam - Physical Examination Constitutional: NAD HEENT: PERRLA, moist MMs, sclera anicteric, oral pharynx no lesions Neck: no nodes, no JVD, supple, full ROM Respiratory: no wheezing, no rales, no rhonchi, clear to auscultation bilateral Cardiovascular: RRR, no significant murmur, no rub Gastrointestinal: soft, non-tender, no distention, positive bowel sounds Musculoskeletal: no edema, pulses present Neurological: non-focal, normal sensation, moves all 4 limbs Lymphatic: no nodes Psychiatric: normal affect, A&O x 3 Skin: no rash, normal turgor, cap refill <2 seconds Dx/Plan (1) Anemia Code(s): D64.9 - ANEMIA, UNSPECIFIED Status: Chronic Qualifiers: Anemia type: unspecified type Qualified Code(s): D64.9 - Anemia, unspecified (2) Diabetes mellitus Code(s): E11.9 - TYPE 2 DIABETES MELLITUS WITHOUT COMPLICATIONS Status: Chronic Qualifiers: Diabetes mellitus type: type 2 Diabetes mellitus fpc insulin use: without fpc use Diabetes mellitus complication status: with kidney complications Chronic kidney disease stage: stage 3 (moderate) (3) Acute osteomyelitis of metatarsal bone of right foot Code(s): M86.171 - OTHER ACUTE OSTEOMYELITIS, RIGHT ANKLE AND FOOT Status: Acute (4) Anxiety and depression Code(s): F41.8 - OTHER SPECIFIED ANXIETY DISORDERS Status: Chronic (5) CKD (chronic kidney disease), stage III Code(s): N18.3 - CHRONIC KIDNEY DISEASE, STAGE 3 (MODERATE) Status: Chronic (6) Diabetic neuropathy Code(s): E11.40 - TYPE 2 DIABETES MELLITUS WITH DIABETIC NEUROPATHY, UNSP Status: Chronic Qualifiers: (7) Dyslipidemia Code(s): E78.5 - HYPERLIPIDEMIA, UNSPECIFIED Status: Chronic (8) Fibromyalgia Status: Chronic (9) GERD (gastroesophageal reflux disease) Code(s): K21.9 - GASTRO-ESOPHAGEAL REFLUX DISEASE WITHOUT ESOPHAGITIS Status: Chronic Qualifiers: Esophagitis presence: esophagitis presence not specified Qualified Code(s) : K21.9 - Gastro-esophageal reflux disease without esophagitis (10) Hypertension Code(s): I10 - ESSENTIAL (PRIMARY) HYPERTENSION Status: Chronic Qualifiers: Hypertension type: essential hypertension Qualified Code(s): I10 - Essential (primary) hypertension (11) Rheumatoid arthritis Code(s): M06.9 - RHEUMATOID ARTHRITIS, UNSPECIFIED Status: Chronic Qualifiers: Rheumatoid arthritis location: unspecified site Rheumatoid factor presence : unspecified presence Qualified Code(s): M06.9 - Rheumatoid arthritis, unspecified - Plan cont current plan of care, continue antibiotics * . awaiting placement
--- NOTE | 2018-06-25 10:55 | PDOC.PN ---
- Subjective Encounter Start Date: 06/24/18 Encounter Start Time: 11:00 no changes, no complaints awaiting palcement, picc working well no f/c, no N/V/D/C, no CP ro sOB all systems reviewed and neg x as above - Objective Resuscitation Status: Resuscitation Status DNI:No Intubation MAR Reviewed: Yes Vital Signs & Weight: Vital Signs (12 hours) Temp Pulse Resp BP BP Pulse Ox 06/25/18 07:30 98.5 F 84 22 H 148/108 H 95 06/25/18 06:01 98 16 96 06/25/18 04:00 98.7 F 96 20 148/65 H 90 L 06/25/18 00:05 165/82 H 06/25/18 00:00 99.5 F 89 18 173/88 H 93 L Weight Admit Weight 211 lb 6 oz Weight 211 lb 6 oz I&O: 06/24/18 06/25/18 06/26/18 06:59 06:59 06:59 Intake Total 2550 1999 Balance 2550 1999 Result Diagrams: 06/20/18 04:39 06/21/18 04:30 Additional Labs: Accuchecks 06/25/18 06/24/18 06/24/18 05:42 21:03 17:07 POC Glucose 132 H 117 H 133 H 06/24/18 11:39 POC Glucose 283 H Phys Exam - Physical Examination Constitutional: NAD HEENT: PERRLA, moist MMs, sclera anicteric, oral pharynx no lesions Neck: no nodes, no JVD, supple, full ROM Respiratory: no wheezing, no rales, no rhonchi, clear to auscultation bilateral Cardiovascular: RRR, no significant murmur, no rub Gastrointestinal: soft, non-tender, no distention, positive bowel sounds Musculoskeletal: pulses present Neurological: non-focal, normal sensation, moves all 4 limbs Lymphatic: no nodes Psychiatric: normal affect, A&O x 3 Skin: no rash, normal turgor, cap refill <2 seconds Dx/Plan (1) Anemia Code(s): D64.9 - ANEMIA, UNSPECIFIED Status: Chronic Qualifiers: Anemia type: unspecified type Qualified Code(s): D64.9 - Anemia, unspecified (2) Diabetes mellitus Code(s): E11.9 - TYPE 2 DIABETES MELLITUS WITHOUT COMPLICATIONS Status: Chronic Qualifiers: Diabetes mellitus type: type 2 Diabetes mellitus fdc insulin use: without adjunct faculty for medical terminology use Diabetes mellitus complication status: with kidney complications Chronic kidney disease stage: stage 3 (moderate) (3) Acute osteomyelitis of metatarsal bone of right foot Code(s): M86.171 - OTHER ACUTE OSTEOMYELITIS, RIGHT ANKLE AND FOOT Status: Acute (4) Anxiety and depression Code(s): F41.8 - OTHER SPECIFIED ANXIETY DISORDERS Status: Chronic (5) CKD (chronic kidney disease), stage III Code(s): N18.3 - CHRONIC KIDNEY DISEASE, STAGE 3 (MODERATE) Status: Chronic (6) Diabetic neuropathy Code(s): E11.40 - TYPE 2 DIABETES MELLITUS WITH DIABETIC NEUROPATHY, UNSP Status: Chronic Qualifiers: (7) Dyslipidemia Code(s): E78.5 - HYPERLIPIDEMIA, UNSPECIFIED Status: Chronic (8) Fibromyalgia Status: Chronic (9) GERD (gastroesophageal reflux disease) Code(s): K21.9 - GASTRO-ESOPHAGEAL REFLUX DISEASE WITHOUT ESOPHAGITIS Status: Chronic Qualifiers: Esophagitis presence: esophagitis presence not specified Qualified Code(s) : K21.9 - Gastro-esophageal reflux disease without esophagitis (10) Hypertension Code(s): I10 - ESSENTIAL (PRIMARY) HYPERTENSION Status: Chronic Qualifiers: Hypertension type: essential hypertension Qualified Code(s): I10 - Essential (primary) hypertension (11) Rheumatoid arthritis Code(s): M06.9 - RHEUMATOID ARTHRITIS, UNSPECIFIED Status: Chronic Qualifiers: Rheumatoid arthritis location: unspecified site Rheumatoid factor presence : unspecified presence Qualified Code(s): M06.9 - Rheumatoid arthritis, unspecified - Plan cont current plan of care, continue antibiotics, psychosocial rehabilitation counselor * . kirsty approval form SNF. rishi rincon
--- NOTE | 2018-06-25 10:57 | PDOC.PN ---
- Subjective Encounter Start Date: 06/25/18 Encounter Start Time: 10:30 pt tearful, Dr Del Toro just in, told her likely she will need adn amputation, will look at leg tomorrow no f/C, no N/V/d/C, no CP or SOB, no new complaints all systems reviewed and neg x as above - Objective Resuscitation Status: Resuscitation Status DNI:No Intubation MAR Reviewed: Yes Vital Signs & Weight: Vital Signs (12 hours) Temp Pulse Resp BP BP Pulse Ox 06/25/18 07:30 98.5 F 84 22 H 148/108 H 95 06/25/18 06:01 98 16 96 06/25/18 04:00 98.7 F 96 20 148/65 H 90 L 06/25/18 00:05 165/82 H 06/25/18 00:00 99.5 F 89 18 173/88 H 93 L Weight Admit Weight 211 lb 6 oz Weight 211 lb 6 oz I&O: 06/24/18 06/25/18 06/26/18 06:59 06:59 06:59 Intake Total 2550 1999 Balance 2550 1999 Result Diagrams: 06/20/18 04:39 06/21/18 04:30 Additional Labs: Accuchecks 06/25/18 06/24/18 06/24/18 05:42 21:03 17:07 POC Glucose 132 H 117 H 133 H 06/24/18 11:39 POC Glucose 283 H Phys Exam - Physical Examination Constitutional: NAD crying HEENT: PERRLA, moist MMs, sclera anicteric, oral pharynx no lesions Neck: no nodes, no JVD, supple, full ROM Respiratory: no wheezing, no rales, no rhonchi, clear to auscultation bilateral Cardiovascular: RRR, no significant murmur, no rub Gastrointestinal: soft, non-tender, no distention, positive bowel sounds Musculoskeletal: no edema, pulses present Neurological: non-focal, normal sensation, moves all 4 limbs Lymphatic: no nodes Psychiatric: normal affect, A&O x 3 Skin: no rash, normal turgor, cap refill <2 seconds Dx/Plan (1) Anemia Code(s): D64.9 - ANEMIA, UNSPECIFIED Status: Chronic Qualifiers: Anemia type: unspecified type Qualified Code(s): D64.9 - Anemia, unspecified (2) Diabetes mellitus Code(s): E11.9 - TYPE 2 DIABETES MELLITUS WITHOUT COMPLICATIONS Status: Chronic Qualifiers: Diabetes mellitus type: type 2 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 long-term use Diabetes mellitus complication status: with kidney complications Chronic kidney disease stage: stage 3 (moderate) (3) Acute osteomyelitis of metatarsal bone of right foot Code(s): M86.171 - OTHER ACUTE OSTEOMYELITIS, RIGHT ANKLE AND FOOT Status: Acute (4) Anxiety and depression Code(s): F41.8 - OTHER SPECIFIED ANXIETY DISORDERS Status: Chronic (5) CKD (chronic kidney disease), stage III Code(s): N18.3 - CHRONIC KIDNEY DISEASE, STAGE 3 (MODERATE) Status: Chronic (6) Diabetic neuropathy Code(s): E11.40 - TYPE 2 DIABETES MELLITUS WITH DIABETIC NEUROPATHY, UNSP Status: Chronic Qualifiers: (7) Dyslipidemia Code(s): E78.5 - HYPERLIPIDEMIA, UNSPECIFIED Status: Chronic (8) Fibromyalgia Status: Chronic (9) GERD (gastroesophageal reflux disease) Code(s): K21.9 - GASTRO-ESOPHAGEAL REFLUX DISEASE WITHOUT ESOPHAGITIS Status: Chronic Qualifiers: Esophagitis presence: esophagitis presence not specified Qualified Code(s) : K21.9 - Gastro-esophageal reflux disease without esophagitis (10) Hypertension Code(s): I10 - ESSENTIAL (PRIMARY) HYPERTENSION Status: Chronic Qualifiers: Hypertension type: essential hypertension Qualified Code(s): I10 - Essential (primary) hypertension (11) Rheumatoid arthritis Code(s): M06.9 - RHEUMATOID ARTHRITIS, UNSPECIFIED Status: Chronic Qualifiers: Rheumatoid arthritis location: unspecified site Rheumatoid factor presence : unspecified presence Qualified Code(s): M06.9 - Rheumatoid arthritis, unspecified - Plan cont current plan of care, continue antibiotics * . follow up on ortho recommendations
[2018-06-25] MEDS: NS 0.9% w/ 20 MEQ KCL 1,000 ML/1,000 ML BAG IV SCH (11:21)
--- NOTE | 2018-06-25 16:52 | CON ---
DATE OF CONSULTATION: 06/25/2018 HISTORY OF PRESENT ILLNESS: Ms. Avery is a 52-year-old female who has had a previous diabetic foot ulcer on her right foot with amputation was in the stages of healing from early this year, presented after an ankle fracture dislocation which was initially splinted and resplinted, failed reduction and had to put a pin and then the patient then had wound breakdown on her posterior heel wound just from the small linear incision, made to place the single Steinmann pin subcutaneous, pen was then ejected from her body through an unknown mechanism and had to be placed in a short leg cast with windows for her wounds of her medial ankle as well as her heel. The patient is currently in the hospital receiving IV antibiotics for the osteomyelitis from the pin insertion and chronic wound in her heel. The patient, currently today, is complaining of ankle pain. PHYSICAL EXAMINATION: VITAL SIGNS: She is currently afebrile. Vital signs stable. Blood pressure is 142/65. GENERAL: No acute distress. EXTREMITIES: Right lower extremity wound VAC in place. NEUROVASCULAR: Unchanged distally. Wound VAC placed. Tender to heel. IMPRESSION: Right diabetic foot, history of amputation with a closed bimalleolar ankle fracture, now osteomyelitis for placement of percutaneous pin fixation of her right heel from calc through the tibia for stabilization of an unstable fracture dislocation of right ankle. ASSESSMENT AND PLAN: The patient will get cast change in the morning with wound VAC exchange. The patient likely potentially has a heel ulcer. I discussed with her at bedside that this is a complex problem, which I do not feel that operative fixation will lead to stable fixation. She has poor healing and likely will require an amputation of her right lower extremity. The patient will undergo an exchange cast and splinting. If feel that the wound still looks nonviable, we will refer to Dr. Vaughan for definitive amputation. PEREZ
[2018-06-25 17:31] LABS: Vancomycin, Trough 18.7 ug/mL
[2018-06-25] MEDS: Vancomycin HCl 1.5 GM in Sodium Chloride 0.9% 250 ML 300 ML IVPB SCH (18:40)
[2018-06-25] MEDS: HYDROcodone/Acetaminophen 5/325 mg Tablet PO PRN (18:44)
[2018-06-25] MEDS: Rosuvastatin 10 MG TAB PO SCH (20:57)
[2018-06-25] MEDS: Mirtazapine 15 MG TAB PO SCH ×2 (20:57)
[2018-06-26 04:12] LABS: #Eosinphils 0.5 thou/uL (0.0-0.7); #Lymphocytes 1.6 thou/uL (1.20-3.40); #Monocytes 0.5 thou/uL (0.11-0.59); #Neutrophils 4.5 thou/uL (1.40-6.50); %Basophils 0.4 % (0.0-1.0); %Eosinophils 7.6 % (0.0-10.0); %Lymphocytes 22.1 % (21.0-51.0); %Monocytes 6.6 % (0.0-10.0); %Neutrophils 63.2 % (42.0-75.0); Hemoglobin 9.5 g/dL (12.0-16.0); Mean Corpuscular HGB CONC 34.2 g/dL (32.0-36.0); Mean Corpuscular Hemoglobin 28.9 pg (27.0-31.0); Mean Corpuscular Volume 84.6 fL (78.0-98.0); Mean Platelet Volume 7.9 fL (7.4-10.4); Platelet Count 214 thou/uL (130-400); RBC Distribution Width 13.2 % (11.5-14.5); Red Blood Cell (RBC) Count 3.28 mill/uL (4.20-5.40); White Blood Cell (WBC) Count 7.2 thou/uL (4.8-10.8)
[2018-06-26 04:31] LABS: ALT (SGPT) 14 U/L (8-55); AST (SGOT) 21 U/L (5-34); Albumin 3.5 g/dL (3.5-5.0); Alkaline Phosphatase 96 U/L (40-150); Anion Gap 13 mmol/L (10-20); BUN (Urea Nitrogen) 10 mg/dL (9.8-20.1); Bilirubin, Total 0.3 mg/dL (0.2-1.2); Calc. Creatinine Clearance 94 mL/min (70-130); Calcium 9.2 mg/dL (7.8-10.44); Carbon Dioxide 24 mmol/L (22-29); Chloride 107 mmol/L (98-107); Estimated GFR-MDRD 55; Globulin 3.2 g/dL (2.4-3.5); Glucose 86 mg/dL (70-105); Potassium 3.5 mmol/L (3.5-5.1); Protein, Total 6.7 g/dL (6.0-8.3); Sodium 140 mmol/L (136-145)
[2018-06-26] MEDS: HYDROcodone/Acetaminophen 5/325 mg Tablet PO PRN (06:05)
[2018-06-26] MEDS: traMADol HCl 50 MG TAB PO PRN (06:05)
[2018-06-26] MEDS: Cipro 250 MG TAB PO SCH ×2 (06:06→20:27)
[2018-06-26] MEDS: NS 0.9% w/ 20 MEQ KCL 1,000 ML/1,000 ML BAG IV SCH ×3 (06:06→20:28)
[2018-06-26] MEDS: Potassium Chloride 20 MEQ TAB PO SCH (08:37)
[2018-06-26] MEDS: Alogliptin 25 MG TAB PO SCH (08:37)
[2018-06-26] MEDS: metFORMIN 500 MG TAB PO SCH ×2 (08:37→18:00)
[2018-06-26] MEDS: Enoxaparin Sodium 40 MG/0.4 ML SYRINGE SC SCH (08:53)
[2018-06-26] MEDS: Labetalol HCl 100 MG/20 ML VIAL SLOW IVP PRN (10:15)
--- NOTE | 2018-06-26 16:38 | CON ---
DATE OF CONSULTATION: 06/26/2018 TIME: 14:30 HISTORY OF PRESENT ILLNESS: Ms. Avery is a 52-year-old female, who had a previous diabetic ulcer, right foot, with an unstable fracture dislocation, underwent a closed reduction pinning, which the pin was exposed. The patient is currently in a total contact cast with a window for her heel and medial ankle ulcers. The patient is on IV antibiotics for her treatment for the periosteal infection from her heel wound. The patient currently was complaining of some posterior leg pain and has a VAC, which was changed wet-to- dry for wound care. In general, in no acute distress. On physical exam, right lower extremity, removal of the window showed some areas of decreased vascularity around the wound sites, but no gross purulence. The wounds looked well packed, did not look infected in any way. Looked they are actually doing well clinically. I am still concerned about wound healing. The patient had a little small area in the back of her calf from the cast, which we cut down and placed some more Webril to help with padding around the cast and placed an Luther wrap back over the top to help to pad the cast to ensure there was no more rubbing of her skin from the fiberglass. The patient Luther wrapped across. The patient will be sent likely to [place] to complete her IV antibiotics. She will need a cast exchange in a week. The patient had this happen on 05/20/2018 and she still has not completely stabilized. I again discussed with the patient that there is still a possibility that she may have to have this amputated if the instability of her ankle does not improve. PEREZ
--- NOTE | 2018-06-26 19:02 | PDOC.PN ---
- Subjective Encounter Start Date: 06/26/18 Encounter Start Time: 19:02 Subjective: nsg notes rev, ashley ovn, no new c/o, wants to know if her kidneys -: will be ok - Objective Resuscitation Status: Resuscitation Status DNI:No Intubation Vital Signs & Weight: Vital Signs (12 hours) Temp Pulse Resp BP BP Pulse Ox 06/26/18 15:17 99.1 F 87 22 H 150/71 H 93 L 06/26/18 11:28 99.1 F 77 20 148/79 H 96 06/26/18 10:15 84 06/26/18 08:59 171/82 H 06/26/18 08:30 98 F 84 20 95 06/26/18 07:13 98 F 72 20 192/84 H 95 Weight Admit Weight 211 lb 6 oz Weight 211 lb 6 oz I&O: 06/25/18 06/26/18 06/27/18 06:59 06:59 06:59 Intake Total 1999 Balance 1999 Result Diagrams: 06/26/18 03:46 06/26/18 03:46 Additional Labs: Accuchecks 06/26/18 06/26/18 06/26/18 16:47 11:29 05:50 POC Glucose 166 H 105 139 H 06/25/18 20:35 POC Glucose 73 Phys Exam - Physical Examination Constitutional: NAD seated in hospital bed HEENT: PERRLA, moist MMs, sclera anicteric Respiratory: no wheezing, no rales, no rhonchi, clear to auscultation bilateral Cardiovascular: RRR, no significant murmur, no rub Gastrointestinal: soft, positive bowel sounds Dx/Plan - Plan (1) Anemia Code(s): D64.9 - ANEMIA, UNSPECIFIED Status: Chronic Qualifiers: Anemia type: unspecified type Qualified Code(s): D64.9 - Anemia, unspecified Hemodynamically stable. Continue to monitor. H/H stable as well. Suspect a chronic component (2) Diabetes mellitus Code(s): E11.9 - TYPE 2 DIABETES MELLITUS WITHOUT COMPLICATIONS Status: Chronic Qualifiers: Diabetes mellitus type: type 2 Diabetes mellitus fpc insulin use: without meterman use Diabetes mellitus complication status: with kidney complications Chronic kidney disease stage: stage 3 (moderate) (3) Acute osteomyelitis of metatarsal bone of right foot Code(s): M86.171 - OTHER ACUTE OSTEOMYELITIS, RIGHT ANKLE AND FOOT Status: Acute Apprec orthopedic input (4) Anxiety and depression Code(s): F41.8 - OTHER SPECIFIED ANXIETY DISORDERS Status: Chronic pt with significant amount of anxiety related to her acute healthcare issues is worried she may be developing heart failure because her mother had heart failure (5) CKD (chronic kidney disease), stage III Code(s): N18.3 - CHRONIC KIDNEY DISEASE, STAGE 3 (MODERATE) Status: Chronic (6) Diabetic neuropathy Code(s): E11.40 - TYPE 2 DIABETES MELLITUS WITH DIABETIC NEUROPATHY, UNSP Status: Chronic Qualifiers: (7) Dyslipidemia Code(s): E78.5 - HYPERLIPIDEMIA, UNSPECIFIED Status: Chronic (8) Fibromyalgia Status: Chronic (9) GERD (gastroesophageal reflux disease) Code(s): K21.9 - GASTRO-ESOPHAGEAL REFLUX DISEASE WITHOUT ESOPHAGITIS Status: Chronic Qualifiers: Esophagitis presence: esophagitis presence not specified Qualified Code(s) : K21.9 - Gastro-esophageal reflux disease without esophagitis (10) Hypertension Code(s): I10 - ESSENTIAL (PRIMARY) HYPERTENSION Status: Chronic Qualifiers: Hypertension type: essential hypertension Qualified Code(s): I10 - Essential (primary) hypertension (11) Rheumatoid arthritis Code(s): M06.9 - RHEUMATOID ARTHRITIS, UNSPECIFIED Status: Chronic Qualifiers: Rheumatoid arthritis location: unspecified site Rheumatoid factor presence : unspecified presence Qualified Code(s): M06.9 - Rheumatoid arthritis, unspecified diet: as tolerated diabetic, renal activity: as tolerated, PT OT dvt ppx Review of Systems - Medications/Allergies Allergies/Adverse Reactions: Allergies Allergy/AdvReac Type Severity Reaction Status Date / Time cefuroxime axetil Allergy Severe Anaphylaxis Verified 05/20/18 15:08 [From Ceftin] codeine Allergy Severe Hives Verified 05/20/18 15:08 duloxetine HCl Allergy Severe Hives Verified 05/20/18 15:08 [From Cymbalta] hydralazine Allergy Severe Short of Verified 06/24/18 22:36 Breath Penicillins Allergy Severe Anaphylaxis Verified 05/20/18 15:08 amoxicillin Allergy Verified 05/20/18 15:08 ampicillin Allergy Verified 05/20/18 15:08 atorvastatin [From Lipitor] Allergy Verified 05/20/18 15:08 Fish Containing Products Allergy Verified 05/20/18 15:08 pregabalin [From Lyrica] Allergy Verified 05/20/18 15:08 shellfish derived Allergy Verified 05/20/18 15:08 Sulfa (Sulfonamide Allergy Verified 05/20/18 15:08 Antibiotics) sulfamethoxazole Allergy Verified 05/20/18 15:08 [From Bactrim] trimethoprim [From Bactrim] Allergy Verified 05/20/18 15:08 gabapentin AdvReac Severe Verified 05/20/18 15:08 Medications: Current Medications Acetaminophen (Tylenol) 650 mg PO Q6H PRN PRN Reason: Headache/Temp >101F/Mild Pain Hydrocodone Bitart/Acetaminophen ([place] 5/325) 1 tab PO Q4H PRN PRN Reason: Moderate Pain (4-6) Last Admin: 06/26/18 06:05 Dose: 1 tab Albuterol Sulfate (Proventil Hfa) 2 puff INH PRN PRN PRN Reason: SOB &/or Wheezing Albuterol/Ipratropium (Duoneb) 3 ml NEB [id number] PRN PRN Reason: SOB &/or Wheezing Last Admin: 06/23/18 18:33 Dose: 3 ml Alogliptin Benzoate (Alogliptin) 25 mg PO DAILY [facility] Last Admin: 06/26/18 08:37 Dose: 25 mg Artificial Tears (Tears Naturale) 1 drop EA EYE PRN PRN PRN Reason: Dry Eyes Bisacodyl (Dulcolax) 10 mg NC DAILY PRN PRN Reason: Constipation Ciprofloxacin (Cipro) 250 mg PO BID@0600,2000 [facility] Last Admin: 06/26/18 06:06 Dose: 250 mg Dextrose/Water (Dextrose 50%) 25 gm SLOW IVP PRN PRN PRN Reason: Hypoglycemia Enoxaparin Sodium (Lovenox) 40 mg SC 0900 [facility] Last Admin: 06/26/18 08:53 Dose: 40 mg Fentanyl (Sublimaze) 50 mcg SLOW IVP Q30M PRN PRN Reason: Severe breakthrough pain Fluticasone Propionate (Flonase Nasal [place]) 0 gm NASAL DAILYPRN PRN PRN Reason: Allergies Last Admin: 06/25/18 07:00 Dose: 1 spr Glipizide (Glucotrol Xl) 5 mg PO BID [facility] Last Admin: 06/26/18 08:37 Dose: 5 mg Glucagon (Glucagon) 1 mg IM PRN PRN PRN Reason: Hypoglycemia Dextrose/Water (D5w) 1,000 mls @ 0 mls/hr IV .Q0M PRN; As Directed PRN Reason: Hypoglycemia Potassium Chloride/Sodium Chloride (Ns 0.9% W/ 20 Meq Kcl) 1,000 ml in 1,000 mls @ 75 mls/hr IV .[id number] [facility] Last Admin: 06/26/18 16:02 Dose: 1,000 mls Vancomycin HCl 1.5 gm/ Sodium (Chloride) 300 mls @ 200 mls/hr IVPB 1800 [facility] Last Admin: 06/25/18 18:40 Dose: 300 mls Insulin Human Lispro (Humalog) 0 units SC .MILD SLIDING SCALE PRN PRN Reason: Mild Correctional Scale Last Admin: 06/24/18 12:54 Dose: 4 unit Insulin Human Lispro (Humalog) 0 units SC .BEDTIME SLIDING SC PRN PRN Reason: Bedtime Correctional Scale Last Admin: 06/20/18 05:38 Dose: 2 unit Labetalol HCl (Normodyne) 10 mg SLOW IVP Q4H PRN PRN Reason: SBP Greater Than 170 Last Admin: 06/26/18 10:15 Dose: 2 ml Labetalol HCl (Normodyne) 10 mg SLOW IVP Q4H PRN PRN Reason: SBP Greater Than 170 Lorazepam (Ativan) 2 mg SLOW IVP Q6H PRN PRN Reason: Anxiety/Agitation Last Admin: 06/24/18 22:29 Dose: 2 mg Magnesium Hydroxide (Milk Of Magnesium) 30 ml PO DAILY PRN PRN Reason: Constipation Melatonin (Melatonin) 30 mg PO HS PRN PRN Reason: Insomnia Last Admin: 06/23/18 21:01 Dose: 30 mg Metformin HCl (Glucophage) 1,000 mg PO BID-[facility] Last Admin: 06/26/18 18:00 Dose: 1,000 mg Mirtazapine (Remeron) 15 mg PO HS [facility] Last Admin: 06/25/18 20:57 Dose: 15 mg Mirtazapine (Remeron) 15 mg PO [facility] Last Admin: 06/25/18 20:57 Dose: Not Given Miscellaneous Medication (Pharmacy To Dose) 1 each IVPB ONE PRN PRN Reason: Pharmacy to dose Stop: 07/27/18 20:14 Mometasone Furoate (Asmanex Hfa 200 Mcg) 1 puff INH BID-RT [facility] Last Admin: 06/25/18 18:38 Dose: 1 puff Morphine Sulfate (Morphine) 2 mg SLOW IVP Q4H PRN PRN Reason: Moderate to Severe Pain (6-10) Last Admin: 06/26/18 18:00 Dose: 2 mg Ondansetron HCl (Zofran) 4 mg IV Q6H PRN PRN Reason: Nausea Pantoprazole Sodium (Protonix) 40 mg PO DAILY [facility] Last Admin: 06/26/18 08:37 Dose: 40 mg Potassium Chloride (K-Dur) 20 meq PO QAM-WM [facility] Last Admin: 06/26/18 08:37 Dose: 20 meq Rosuvastatin Calcium (Crestor) 10 mg PO HS [facility] Last Admin: 06/25/18 20:57 Dose: 10 mg Sertraline HCl (Zoloft) 250 mg PO HS [facility] Last Admin: 06/25/18 20:57 Dose: 250 mg Sodium Chloride (Flush - Normal Saline) 10 ml IVF PRN PRN PRN Reason: Saline Flush Tramadol HCl (Ultram) 50 mg PO Q6H PRN PRN Reason: Mild Pain (1-3) Last Admin: 06/26/18 06:05 Dose: 50 mg
[2018-06-26] MEDS: Vancomycin HCl 1.5 GM in Sodium Chloride 0.9% 250 ML 300 ML IVPB SCH (19:17)
[2018-06-26] MEDS: Mometasone 200 MCG HFA INHALER INH SCH ×2 (19:31→19:34)
[2018-06-26] MEDS: Mirtazapine 15 MG TAB PO SCH ×2 (19:38→20:27)
[2018-06-26] MEDS: Rosuvastatin 10 MG TAB PO SCH (20:27)
[2018-06-27] MEDS: Cipro 250 MG TAB PO SCH ×2 (06:28→21:32)
[2018-06-27] MEDS: metFORMIN 500 MG TAB PO SCH ×2 (07:46→18:23)
[2018-06-27] MEDS: Potassium Chloride 20 MEQ TAB PO SCH (07:46)
[2018-06-27] MEDS: Mometasone 200 MCG HFA INHALER INH SCH ×2 (07:47→19:16)
[2018-06-27] MEDS: Alogliptin 25 MG TAB PO SCH (08:55)
[2018-06-27] MEDS: Enoxaparin Sodium 40 MG/0.4 ML SYRINGE SC SCH (08:56)
[2018-06-27] MEDS: Labetalol HCl 100 MG/20 ML VIAL SLOW IVP PRN (08:57)
[2018-06-27] MEDS: HYDROcodone/Acetaminophen 5/325 mg Tablet PO PRN ×2 (09:08→22:39)
[2018-06-27] MEDS: NS 0.9% w/ 20 MEQ KCL 1,000 ML/1,000 ML BAG IV SCH ×2 (10:50→15:01)
--- NOTE | 2018-06-27 16:30 | PDOC.PN ---
- Subjective Encounter Start Date: 06/27/18 Encounter Start Time: 09:20 Pt seen for followup re: hypertension. Denies chest pain, shortness of breath, fevers or chills. - Objective Resuscitation Status: Resuscitation Status DNI:No Intubation MAR Reviewed: Yes Vital Signs & Weight: Vital Signs (12 hours) Temp Pulse Resp BP BP Pulse Ox 06/27/18 15:38 98.9 F 93 22 H 177/94 H 93 L 06/27/18 11:13 98.5 F 83 22 H 144/84 H 93 L 06/27/18 08:57 85 187/96 H 06/27/18 07:52 98.7 F 85 20 180/80 H 93 L 06/27/18 07:47 55 L 16 95 06/27/18 07:45 98.7 F 85 22 H 93 L 06/27/18 04:38 98.5 F 88 16 151/89 H 96 Weight Admit Weight 211 lb 6 oz Weight 211 lb 6 oz Result Diagrams: 06/26/18 03:46 06/26/18 03:46 Additional Labs: Accuchecks 06/27/18 06/27/18 06/27/18 15:56 11:15 05:34 POC Glucose 121 H 128 H 92 06/26/18 06/26/18 06/25/18 20:52 16:47 15:47 POC Glucose 108 166 H 72 Labs reviewed by me Phys Exam - Physical Examination Obese HEENT: moist MMs Neck: supple Respiratory: clear to auscultation bilateral Cardiovascular: RRR Gastrointestinal: soft Neurological: moves all 4 limbs Psychiatric: normal affect Deviation from normal: R foot wound vac Dx/Plan (1) Hypertension Code(s): I10 - ESSENTIAL (PRIMARY) HYPERTENSION Status: Chronic Qualifiers: Hypertension type: essential hypertension Qualified Code(s): I10 - Essential (primary) hypertension Comment: add PRN oral clonidine for blood pressure control (2) Diabetes mellitus Code(s): E11.9 - TYPE 2 DIABETES MELLITUS WITHOUT COMPLICATIONS Status: Chronic Qualifiers: Diabetes mellitus type: type 2 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 Diabetes mellitus complication status: with kidney complications Chronic kidney disease stage: stage 3 (moderate) Comment: reasonable control (3) Diabetic foot infection Code(s): E11.69 - TYPE 2 DIABETES MELLITUS WITH OTHER SPECIFIED COMPLICATION; L08.9 - LOCAL INFECTION OF THE SKIN AND SUBCUTANEOUS TISSUE, UNSP Status: Chronic Comment: continue IV antibiotics as below (4) Dyslipidemia Code(s): E78.5 - HYPERLIPIDEMIA, UNSPECIFIED Status: Chronic Comment: continue statin (5) Fibromyalgia Status: Chronic (6) GERD (gastroesophageal reflux disease) Code(s): K21.9 - GASTRO-ESOPHAGEAL REFLUX DISEASE WITHOUT ESOPHAGITIS Status: Chronic Qualifiers: Esophagitis presence: esophagitis presence not specified Qualified Code(s) : K21.9 - Gastro-esophageal reflux disease without esophagitis - Plan * . Review of Systems - Review of Systems Respiratory: negative: Cough, Shortness of Breath, SOB with Excertion, Pleuritic Pain, Wheezing Cardiovascular: negative: chest pain, palpitations, orthopnea, paroxysmal nocturnal dyspnea, edema, light headedness - Medications/Allergies Allergies/Adverse Reactions: Allergies Allergy/AdvReac Type Severity Reaction Status Date / Time cefuroxime axetil Allergy Severe Anaphylaxis Verified 05/20/18 15:08 [From Ceftin] codeine Allergy Severe Hives Verified 05/20/18 15:08 duloxetine HCl Allergy Severe Hives Verified 05/20/18 15:08 [From Cymbalta] hydralazine Allergy Severe Short of Verified 06/24/18 22:36 Breath Penicillins Allergy Severe Anaphylaxis Verified 05/20/18 15:08 amoxicillin Allergy Verified 05/20/18 15:08 ampicillin Allergy Verified 05/20/18 15:08 atorvastatin [From Lipitor] Allergy Verified 05/20/18 15:08 Fish Containing Products Allergy Verified 05/20/18 15:08 pregabalin [From Lyrica] Allergy Verified 05/20/18 15:08 shellfish derived Allergy Verified 05/20/18 15:08 Sulfa (Sulfonamide Allergy Verified 05/20/18 15:08 Antibiotics) sulfamethoxazole Allergy Verified 05/20/18 15:08 [From Bactrim] trimethoprim [From Bactrim] Allergy Verified 05/20/18 15:08 gabapentin AdvReac Severe Verified 05/20/18 15:08 Medications: Current Medications Acetaminophen (Tylenol) 650 mg PO Q6H PRN PRN Reason: Headache/Temp >101F/Mild Pain Albuterol Sulfate (Proventil Hfa) 2 puff INH PRN PRN PRN Reason: SOB &/or Wheezing Albuterol/Ipratropium (Duoneb) 3 ml NEB [id number] PRN PRN Reason: SOB &/or Wheezing Last Admin: 06/23/18 18:33 Dose: 3 ml Alogliptin Benzoate (Alogliptin) 25 mg PO DAILY [facility] Last Admin: 06/27/18 08:55 Dose: 25 mg Artificial Tears (Tears Naturale) 1 drop EA EYE PRN PRN PRN Reason: Dry Eyes Bisacodyl (Dulcolax) 10 mg CA DAILY PRN PRN Reason: Constipation Ciprofloxacin (Cipro) 250 mg PO BID@0600,1999 [facility] Last Admin: 06/27/18 06:28 Dose: 250 mg Clonidine (Catapres) 0.1 mg PO Q4H PRN PRN Reason: SBP Greater Than 170 Dextrose/Water (Dextrose 50%) 25 gm SLOW IVP PRN PRN PRN Reason: Hypoglycemia Enoxaparin Sodium (Lovenox) 40 mg SC 0900 [facility] Last Admin: 06/27/18 08:56 Dose: 40 mg Fluticasone Propionate (Flonase Nasal [place]) 0 gm NASAL DAILYPRN PRN PRN Reason: Allergies Last Admin: 06/25/18 07:00 Dose: 1 spr Glipizide (Glucotrol Xl) 5 mg PO BID [facility] Last Admin: 06/27/18 08:55 Dose: 5 mg Glucagon (Glucagon) 1 mg IM PRN PRN PRN Reason: Hypoglycemia Dextrose/Water (D5w) 1,000 mls @ 0 mls/hr IV .Q0M PRN; As Directed PRN Reason: Hypoglycemia Potassium Chloride/Sodium Chloride (Ns 0.9% W/ 20 Meq Kcl) 1,000 ml in 1,000 mls @ 75 mls/hr IV .[id number] [facility] Last Admin: 06/27/18 15:01 Dose: 1,000 mls Vancomycin HCl 1.5 gm/ Sodium (Chloride) 300 mls @ 200 mls/hr IVPB 1800 [facility] Last Admin: 06/26/18 19:17 Dose: 300 mls Insulin Human Lispro (Humalog) 0 units SC .MILD SLIDING SCALE PRN PRN Reason: Mild Correctional Scale Last Admin: 06/24/18 12:54 Dose: 4 unit Insulin Human Lispro (Humalog) 0 units SC .BEDTIME SLIDING SC PRN PRN Reason: Bedtime Correctional Scale Last Admin: 06/20/18 05:38 Dose: 2 unit Labetalol HCl (Normodyne) 10 mg SLOW IVP Q4H PRN PRN Reason: SBP Greater Than 170 Last Admin: 06/27/18 08:57 Dose: 2 ml Labetalol HCl (Normodyne) 10 mg SLOW IVP Q4H PRN PRN Reason: SBP Greater Than 170 Lorazepam (Ativan) 2 mg SLOW IVP Q6H PRN PRN Reason: Anxiety/Agitation Last Admin: 06/24/18 22:29 Dose: 2 mg Magnesium Hydroxide (Milk Of Magnesium) 30 ml PO DAILY PRN PRN Reason: Constipation Melatonin (Melatonin) 30 mg PO HS PRN PRN Reason: Insomnia Last Admin: 06/23/18 21:01 Dose: 30 mg Metformin HCl (Glucophage) 1,000 mg PO BID-WM [facility] Last Admin: 06/27/18 07:46 Dose: 1,000 mg Mirtazapine (Remeron) 15 mg PO [facility] Last Admin: 06/26/18 20:27 Dose: 15 mg Mirtazapine (Remeron) 15 mg PO [facility] Last Admin: 06/26/18 19:38 Dose: Not Given Miscellaneous Medication (Pharmacy To Dose) 1 each IVPB ONE PRN PRN Reason: Pharmacy to dose Stop: 07/27/18 20:14 Mometasone Furoate (Asmanex Hfa 200 Mcg) 1 puff INH BID-RT [facility] Last Admin: 06/27/18 07:47 Dose: 1 puff Morphine Sulfate (Morphine) 2 mg SLOW IVP Q4H PRN PRN Reason: Moderate to Severe Pain (6-10) Last Admin: 06/26/18 18:00 Dose: 2 mg Ondansetron HCl (Zofran) 4 mg IV Q6H PRN PRN Reason: Nausea Pantoprazole Sodium (Protonix) 40 mg PO DAILY [facility] Last Admin: 06/27/18 08:55 Dose: 40 mg Potassium Chloride (K-Dur) 20 meq PO QAM-[facility] Last Admin: 06/27/18 07:46 Dose: 20 meq Rosuvastatin Calcium (Crestor) 10 mg PO [facility] Last Admin: 06/26/18 20:27 Dose: 10 mg Sertraline HCl (Zoloft) 250 mg PO [facility] Last Admin: 06/26/18 20:27 Dose: 250 mg Sodium Chloride (Flush - Normal Saline) 10 ml IVF PRN PRN PRN Reason: Saline Flush
[2018-06-27] MEDS: cloNIDine 0.1 MG TAB PO PRN (16:31)
[2018-06-27 16:40] LABS: Troponin I 0.012 ng/mL (< 0.028)
--- NOTE | 2018-06-27 17:18 | PDOC.EVN ---
Event Note - Event Note Event Note: Pt seen re: chest tightness. Reports retrostyernal tightness, dull, radiating around to her back bilaterally, accompanied by shortness of breath. Reports she had this sensation on and off for a few days. It is improving now. VSS. S1, S2, lungs CTA. EKG reviewed, nil acute. Await troponin.
--- NOTE | 2018-06-27 17:28 | RAD ---
PORTABLE CHEST 1 VIEW: Date: 06/27/18 Time: 1613 hours HISTORY: PICC line placement. FINDINGS/IMPRESSION: Comparison made with exam of 05/30/18. There is a left upper extremity PICC line with tip in the projection of the SVC. The heart size is no rmal. The lungs are well expanded without lobar consolidation, pneumothoraces, or pleural effusions. POS: GABE
[2018-06-27 17:45] LABS: Vancomycin, Trough 21.4 ug/mL
[2018-06-27] MEDS: Vancomycin HCl 1.5 GM in Sodium Chloride 0.9% 250 ML 300 ML IVPB SCH (18:24)
--- NOTE | 2018-06-27 19:40 | ULT ---
VENOUS DOPPLER ULTRASOUND OF THE LEFT UPPER EXTREMITY: 06/27/18 HISTORY: Left arm pain. TECHNIQUE: Miramontes scale, color flow and spectral doppler imaging of the deep venous system of the left upper extre mity is performed. FINDINGS: There is good flow, compression and normal waveforms of the deep venous system of the left upper extr emity including the IJ, subclavian, axillary, branchial, radial, ulnar, basilic and cephalic veins. IMPRESSION: No evidence of DVT in the left upper extremity. POS: GABE
[2018-06-27 20:23] LABS: Troponin I 0.017 ng/mL (< 0.028)
[2018-06-27] MEDS: Vancomycin HCl 1.25 GM in Sodium Chloride 0.9% 250 ML 250 ML IVPB SCH (21:31)
[2018-06-27] MEDS: Mirtazapine 15 MG TAB PO SCH ×2 (21:33)
[2018-06-27] MEDS: Rosuvastatin 10 MG TAB PO SCH (21:33)
[2018-06-27] MEDS: Melatonin 3 MG TAB PO PRN (22:39)
[2018-06-28] MEDS: Cipro 250 MG TAB PO SCH ×2 (06:11→21:44)
[2018-06-28] MEDS: Potassium Chloride 20 MEQ TAB PO SCH (07:58)
[2018-06-28] MEDS: metFORMIN 500 MG TAB PO SCH ×2 (07:58→16:51)
[2018-06-28] MEDS: Enoxaparin Sodium 40 MG/0.4 ML SYRINGE SC SCH (09:03)
[2018-06-28] MEDS: Alogliptin 25 MG TAB PO SCH (09:03)
[2018-06-28] MEDS: Mometasone 200 MCG HFA INHALER INH SCH ×2 (09:42→19:39)
--- NOTE | 2018-06-28 14:49 | PDOC.PN ---
- Subjective Encounter Start Date: 06/28/18 Encounter Start Time: 09:20 Pt seen for followup re: hypertension. Denies chest pain. No nausea or vomiting. No fevers or chills. - Objective Resuscitation Status: Resuscitation Status DNI:No Intubation Vital Signs & Weight: Vital Signs (12 hours) Temp Pulse Resp BP Pulse Ox 06/28/18 11:40 98.6 F 73 22 H 134/58 L 96 06/28/18 09:42 68 16 06/28/18 08:00 98.3 F 68 16 93 L 06/28/18 07:50 98.3 F 75 22 H 137/59 L 93 L 06/28/18 04:00 98.4 F 77 16 127/67 93 L Weight Admit Weight 211 lb 6 oz Weight 211 lb 6 oz Result Diagrams: 06/26/18 03:46 06/26/18 03:46 Additional Labs: Accuchecks 06/28/18 06/27/18 06/27/18 10:45 21:00 15:56 POC Glucose 142 H 91 121 H Phys Exam - Physical Examination Constitutional: NAD HEENT: moist MMs Neck: supple Respiratory: clear to auscultation bilateral Cardiovascular: RRR Gastrointestinal: soft R ankle wound vac Neurological: moves all 4 limbs Psychiatric: normal affect Dx/Plan (1) Hypertension Code(s): I10 - ESSENTIAL (PRIMARY) HYPERTENSION Status: Chronic Qualifiers: Hypertension type: essential hypertension Qualified Code(s): I10 - Essential (primary) hypertension Comment: BP better now, has PRN clonidine (2) Diabetes mellitus Code(s): E11.9 - TYPE 2 DIABETES MELLITUS WITHOUT COMPLICATIONS Status: Chronic Qualifiers: Diabetes mellitus type: type 2 Diabetes mellitus mcfp insulin use: without mcfp use Diabetes mellitus complication status: with kidney complications Chronic kidney disease stage: stage 3 (moderate) Comment: continue accuchecks, insulin sliding scale (3) Diabetic foot infection Code(s): E11.69 - TYPE 2 DIABETES MELLITUS WITH OTHER SPECIFIED COMPLICATION; L08.9 - LOCAL INFECTION OF THE SKIN AND SUBCUTANEOUS TISSUE, UNSP Status: Chronic Comment: continue IV antibiotics as below (4) Dyslipidemia Code(s): E78.5 - HYPERLIPIDEMIA, UNSPECIFIED Status: Chronic Comment: on statin (5) Fibromyalgia Status: Chronic (6) GERD (gastroesophageal reflux disease) Code(s): K21.9 - GASTRO-ESOPHAGEAL REFLUX DISEASE WITHOUT ESOPHAGITIS Status: Chronic Qualifiers: Esophagitis presence: esophagitis presence not specified Qualified Code(s) : K21.9 - Gastro-esophageal reflux disease without esophagitis (7) Chest pain Code(s): R07.9 - CHEST PAIN, UNSPECIFIED Status: Resolved - Plan * . Review of Systems - Review of Systems Constitutional: negative: fever, chills, sweats, weakness, malaise Cardiovascular: negative: chest pain, palpitations, orthopnea, paroxysmal nocturnal dyspnea, edema, light headedness Gastrointestinal: negative: Nausea, Abdominal Pain, Constipation, Melena, Hematochezia - Medications/Allergies Allergies/Adverse Reactions: Allergies Allergy/AdvReac Type Severity Reaction Status Date / Time cefuroxime axetil Allergy Severe Anaphylaxis Verified 05/20/18 15:08 [From Ceftin] codeine Allergy Severe Hives Verified 05/20/18 15:08 duloxetine HCl Allergy Severe Hives Verified 05/20/18 15:08 [From Cymbalta] hydralazine Allergy Severe Short of Verified 06/24/18 22:36 Breath Penicillins Allergy Severe Anaphylaxis Verified 05/20/18 15:08 amoxicillin Allergy Verified 05/20/18 15:08 ampicillin Allergy Verified 05/20/18 15:08 atorvastatin [From Lipitor] Allergy Verified 05/20/18 15:08 Fish Containing Products Allergy Verified 05/20/18 15:08 pregabalin [From Lyrica] Allergy Verified 05/20/18 15:08 shellfish derived Allergy Verified 05/20/18 15:08 Sulfa (Sulfonamide Allergy Verified 05/20/18 15:08 Antibiotics) sulfamethoxazole Allergy Verified 05/20/18 15:08 [From Bactrim] trimethoprim [From Bactrim] Allergy Verified 05/20/18 15:08 gabapentin AdvReac Severe Verified 05/20/18 15:08 Medications: Current Medications Acetaminophen (Tylenol) 650 mg PO Q6H PRN PRN Reason: Headache/Temp >101F/Mild Pain Hydrocodone Bitart/Acetaminophen ([place] 5/325) 1 tab PO Q4H PRN PRN Reason: Moderate Pain (4-6) Last Admin: 06/27/18 22:39 Dose: 1 tab Albuterol Sulfate (Proventil Hfa) 2 puff INH PRN PRN PRN Reason: SOB &/or Wheezing Albuterol/Ipratropium (Duoneb) 3 ml NEB [id number] PRN PRN Reason: SOB &/or Wheezing Last Admin: 06/23/18 18:33 Dose: 3 ml Alogliptin Benzoate (Alogliptin) 25 mg PO DAILY [facility] Last Admin: 06/28/18 09:03 Dose: 25 mg Artificial Tears (Tears Naturale) 1 drop EA EYE PRN PRN PRN Reason: Dry Eyes Bisacodyl (Dulcolax) 10 mg NV DAILY PRN PRN Reason: Constipation Ciprofloxacin (Cipro) 250 mg PO BID@599,1999 [facility] Last Admin: 06/28/18 06:11 Dose: 250 mg Clonidine (Catapres) 0.1 mg PO Q4H PRN PRN Reason: SBP Greater Than 170 Last Admin: 06/27/18 16:31 Dose: 0.1 mg Dextrose/Water (Dextrose 50%) 25 gm SLOW IVP PRN PRN PRN Reason: Hypoglycemia Enoxaparin Sodium (Lovenox) 40 mg SC 09 [facility] Last Admin: 06/28/18 09:03 Dose: 40 mg Fluticasone Propionate (Flonase Nasal [place]) 0 gm NASAL DAILYPRN PRN PRN Reason: Allergies Last Admin: 06/25/18 07:00 Dose: 1 spr Glipizide (Glucotrol Xl) 5 mg PO BID [facility] Last Admin: 06/28/18 09:03 Dose: 5 mg Glucagon (Glucagon) 1 mg IM PRN PRN PRN Reason: Hypoglycemia Dextrose/Water (D5w) 1,000 mls @ 0 mls/hr IV .Q0M PRN; As Directed PRN Reason: Hypoglycemia Vancomycin HCl 1.25 gm/ Sodium (Chloride) 250 mls @ 166.667 mls/hr IVPB 1999 [facility] Last Admin: 06/27/18 21:31 Dose: 250 mls Insulin Human Lispro (Humalog) 0 units SC .MILD SLIDING SCALE PRN PRN Reason: Mild Correctional Scale Last Admin: 06/24/18 12:54 Dose: 4 unit Insulin Human Lispro (Humalog) 0 units SC .BEDTIME SLIDING SC PRN PRN Reason: Bedtime Correctional Scale Last Admin: 06/20/18 05:38 Dose: 2 unit Labetalol HCl (Normodyne) 10 mg SLOW IVP Q4H PRN PRN Reason: SBP Greater Than 170 Last Admin: 06/27/18 08:57 Dose: 2 ml Labetalol HCl (Normodyne) 10 mg SLOW IVP Q4H PRN PRN Reason: SBP Greater Than 170 Lorazepam (Ativan) 2 mg SLOW IVP Q6H PRN PRN Reason: Anxiety/Agitation Last Admin: 06/24/18 22:29 Dose: 2 mg Magnesium Hydroxide (Milk Of Magnesium) 30 ml PO DAILY PRN PRN Reason: Constipation Melatonin (Melatonin) 30 mg PO HS PRN PRN Reason: Insomnia Last Admin: 06/27/18 22:39 Dose: 30 mg Metformin HCl (Glucophage) 1,000 mg PO BID-WM [facility] Last Admin: 06/28/18 07:58 Dose: 1,000 mg Mirtazapine (Remeron) 15 mg PO HS [facility] Last Admin: 06/27/18 21:33 Dose: 15 mg Mirtazapine (Remeron) 15 mg PO HS [facility] Last Admin: 06/27/18 21:33 Dose: Not Given Miscellaneous Medication (Pharmacy To Dose) 1 each IVPB ONE PRN PRN Reason: Pharmacy to dose Stop: 07/27/18 20:14 Mometasone Furoate (Asmanex Hfa 200 Mcg) 1 puff INH BID-RT [facility] Last Admin: 06/28/18 09:42 Dose: 1 puff Ondansetron HCl (Zofran) 4 mg IV Q6H PRN PRN Reason: Nausea Pantoprazole Sodium (Protonix) 40 mg PO DAILY [facility] Last Admin: 06/28/18 09:03 Dose: 40 mg Potassium Chloride (K-Dur) 20 meq PO QAM-[facility] Last Admin: 06/28/18 07:58 Dose: 20 meq Rosuvastatin Calcium (Crestor) 10 mg PO HS [facility] Last Admin: 06/27/18 21:33 Dose: 10 mg Sertraline HCl (Zoloft) 250 mg PO HS [facility] Last Admin: 06/27/18 21:32 Dose: 250 mg Sodium Chloride (Flush - Normal Saline) 10 ml IVF PRN PRN PRN Reason: Saline Flush Last Admin: 06/27/18 21:35 Dose: 10 ml
[2018-06-28] MEDS: HYDROcodone/Acetaminophen 5/325 mg Tablet PO PRN (15:18)
[2018-06-28] MEDS: cloNIDine 0.1 MG TAB PO PRN (16:58)
[2018-06-28] MEDS: Vancomycin HCl 1.25 GM in Sodium Chloride 0.9% 250 ML 250 ML IVPB SCH (21:43)
[2018-06-28] MEDS: Rosuvastatin 10 MG TAB PO SCH (21:45)
[2018-06-28] MEDS: Mirtazapine 15 MG TAB PO SCH ×2 (21:45→21:53)
[2018-06-28] MEDS: Melatonin 3 MG TAB PO PRN (22:28)
[2018-06-29] MEDS: Mometasone 200 MCG HFA INHALER INH SCH (06:36)
[2018-06-29] MEDS: Cipro 250 MG TAB PO SCH (06:51)
[2018-06-29] MEDS: Enoxaparin Sodium 40 MG/0.4 ML SYRINGE SC SCH (09:04)
[2018-06-29] MEDS: metFORMIN 500 MG TAB PO SCH (09:05)
[2018-06-29] MEDS: Alogliptin 25 MG TAB PO SCH (09:05)
[2018-06-29] MEDS: Potassium Chloride 20 MEQ TAB PO SCH (09:05)
[2018-06-29 12:11] VITALS: BP 132/68; TEMP 98.9
--- NOTE | 2018-06-29 17:00 | PDOC.PN ---
- Subjective Encounter Start Date: 06/29/18 Encounter Start Time: 09:40 Pt seen for followup re: hypertension. Denies chest pain, shortness of breath, fevers or chills. - Objective Resuscitation Status: Resuscitation Status DNI:No Intubation MAR Reviewed: Yes Vital Signs & Weight: Vital Signs (12 hours) Temp Pulse Resp BP Pulse Ox 06/29/18 12:10 98.9 F 82 18 132/68 96 06/29/18 09:07 98.6 F 74 18 95 06/29/18 07:30 98.6 F 74 18 125/85 95 06/29/18 06:36 74 16 94 L Weight Admit Weight 211 lb 6 oz Weight 211 lb 6 oz I&O: 06/28/18 06/29/18 06/30/18 06:59 06:59 06:59 Intake Total 1500 Output Total 425 Balance 1075 Result Diagrams: 06/26/18 03:46 06/26/18 03:46 Additional Labs: Accuchecks 06/29/18 06/29/18 06/28/18 11:16 05:53 20:22 POC Glucose 95 97 114 H 06/28/18 05:28 POC Glucose 80 Labs reviewed by me Phys Exam - Physical Examination Constitutional: NAD HEENT: moist MMs Neck: supple Respiratory: clear to auscultation bilateral Cardiovascular: RRR Gastrointestinal: soft RLE wound vac Neurological: moves all 4 limbs Psychiatric: normal affect Dx/Plan (1) Hypertension Code(s): I10 - ESSENTIAL (PRIMARY) HYPERTENSION Status: Chronic Qualifiers: Hypertension type: essential hypertension Qualified Code(s): I10 - Essential (primary) hypertension Comment: controlled (2) Diabetes mellitus Code(s): E11.9 - TYPE 2 DIABETES MELLITUS WITHOUT COMPLICATIONS Status: Chronic Qualifiers: Diabetes mellitus type: type 2 Diabetes mellitus oil heaterman insulin use: without retirement use Diabetes mellitus complication status: with kidney complications Chronic kidney disease stage: stage 3 (moderate) Comment: reasonably controlled (3) Diabetic foot infection Code(s): E11.69 - TYPE 2 DIABETES MELLITUS WITH OTHER SPECIFIED COMPLICATION; L08.9 - LOCAL INFECTION OF THE SKIN AND SUBCUTANEOUS TISSUE, UNSP Status: Chronic Comment: continue IV antibiotics as below (4) Dyslipidemia Code(s): E78.5 - HYPERLIPIDEMIA, UNSPECIFIED Status: Chronic Comment: continue statin (5) Fibromyalgia Status: Chronic Comment: stable (6) GERD (gastroesophageal reflux disease) Code(s): K21.9 - GASTRO-ESOPHAGEAL REFLUX DISEASE WITHOUT ESOPHAGITIS Status: Chronic Qualifiers: Esophagitis presence: esophagitis presence not specified Qualified Code(s) : K21.9 - Gastro-esophageal reflux disease without esophagitis Comment: stable - Plan * . Review of Systems - Medications/Allergies Allergies/Adverse Reactions: Allergies Allergy/AdvReac Type Severity Reaction Status Date / Time cefuroxime axetil Allergy Severe Anaphylaxis Verified 05/20/18 15:08 [From Ceftin] codeine Allergy Severe Hives Verified 05/20/18 15:08 duloxetine HCl Allergy Severe Hives Verified 05/20/18 15:08 [From Cymbalta] hydralazine Allergy Severe Short of Verified 06/24/18 22:36 Breath Penicillins Allergy Severe Anaphylaxis Verified 05/20/18 15:08 amoxicillin Allergy Verified 05/20/18 15:08 ampicillin Allergy Verified 05/20/18 15:08 atorvastatin [From Lipitor] Allergy Verified 05/20/18 15:08 Fish Containing Products Allergy Verified 05/20/18 15:08 pregabalin [From Lyrica] Allergy Verified 05/20/18 15:08 shellfish derived Allergy Verified 05/20/18 15:08 Sulfa (Sulfonamide Allergy Verified 05/20/18 15:08 Antibiotics) sulfamethoxazole Allergy Verified 05/20/18 15:08 [From Bactrim] trimethoprim [From Bactrim] Allergy Verified 05/20/18 15:08 gabapentin AdvReac Severe Verified 05/20/18 15:08
== END 2018-06-29 12:41 | DRG 857 ==
LOC: ERS 13:30 → SURG B 15:28
PROVIDERS: ADMIT Orthopaedic Surgery; ATTEND Orthopaedic Surgery
PROC: 0JBQ0ZZ Excision of Right Foot Subcutaneous Tissue and Fascia, Open Approach (ICD-10-PCS; principal; 2018-06-18)
PROC: 2W3QX2Z Immobilization of Right Lower Leg using Cast (ICD-10-PCS; 2018-06-18)
PROC: 02HV33Z Insertion of Infusion Device into Superior Vena Cava, Percutaneous Approach (ICD-10-PCS; 2018-06-21)
DX: T81.4XXA Infection following a procedure, initial encounter (principal); M86.171 Other acute osteomyelitis, right ankle and foot; S82.841A Displaced bimalleolar fracture of right lower leg, initial encounter for closed fracture; X58.XXXA Exposure to other specified factors, initial encounter; Y92.9 Unspecified place or not applicable; E11.69 Type 2 diabetes mellitus with other specified complication; M32.9 Systemic lupus erythematosus, unspecified; K90.0 Celiac disease; M79.7 Fibromyalgia; J44.9 Chronic obstructive pulmonary disease, unspecified; G47.33 Obstructive sleep apnea (adult) (pediatric); G40.909 Epilepsy, unspecified, not intractable, without status epilepticus; M06.9 Rheumatoid arthritis, unspecified; Z89.421 Acquired absence of other right toe(s); Z88.0 Allergy status to penicillin; Z87.891 Personal history of nicotine dependence; E11.43 Type 2 diabetes mellitus with diabetic autonomic (poly)neuropathy; Z88.2 Allergy status to sulfonamides; Z79.84 Long term (current) use of oral hypoglycemic drugs; E78.5 Hyperlipidemia, unspecified; J45.909 Unspecified asthma, uncomplicated; K21.9 Gastro-esophageal reflux disease without esophagitis; Z85.41 Personal history of malignant neoplasm of cervix uteri; G25.81 Restless legs syndrome; F32.9 Major depressive disorder, single episode, unspecified; I12.9 Hypertensive chronic kidney disease with stage 1 through stage 4 chronic kidney disease, or unspecified chronic kidney disease; E11.22 Type 2 diabetes mellitus with diabetic chronic kidney disease; N18.3 Chronic kidney disease, stage 3 (moderate); G56.00 Carpal tunnel syndrome, unspecified upper limb; F41.9 Anxiety disorder, unspecified
CPT/HCPCS: 36415; 36416; 36569; 71045; 76000; 80048; 80053; 80202; 83735; 84484; 85025; 85652; 86140; 87070; 87076; 87077; 87186; 87205; 87324; 87449; 93005; 93010; 94640; 96361; 96365; 96367; 96375; C1751; G8978-GP-CM; G8979-GP-CK; J0360; J1644; J1650; J2001; J2060; J2270; J2405; J2543; J2704; J3010; J3370; J3480; J3490; J7050; J7620

== ENCOUNTER 2018-07-20 00:04 | Day surgery (SDC) | payer SELFPAY | END 2018-07-20 02:56 | LOC: ERS 00:04 → ER/OP 00:04 → ERS 02:56 → EDSTATUS 10:53 | PROVIDERS: ATTEND Emergency Medicine | DX: T82.898A Other specified complication of vascular prosthetic devices, implants and grafts, initial encounter (principal); E78.5 Hyperlipidemia, unspecified; G47.30 Sleep apnea, unspecified; E11.9 Type 2 diabetes mellitus without complications; I10 Essential (primary) hypertension; Z87.891 Personal history of nicotine dependence ==

== ENCOUNTER → 2018-07-21 | Day surgery (SDC) | payer SELFPAY ==
[~2018-07-21] MED LIST changes: +Heparin 1,000 UNITS/ML VIAL ONE; -Lidocaine 2% Jelly 5 ML TUBE ONE; -Sodium Chloride 0.9% 15 ML NEB ONE
--- NOTE | 2018-07-21 11:39 | SPC ---
ULTRASOUND WITH FLUOROSCOPIC GUIDED PICC LINE PLACEMENT: COMPARISON: PICC line of 06/21/18. HISTORY: Need for long-term IV antibiotics. FINDINGS: The patient was brought to the specials suite. All questions were answered. The patient's left arm was prepped and draped in normal sterile fashion. Informed consent was obtain ed. Timeout was performed. Using ultrasound guidance, the large-caliber of what appears to be the cephalic vein was accessed usi ng ultrasound guidance. Over a wire and through a peelaway sheath, a 44 cm single-lumen PICC was pietro debra. The patient tolerated the procedure well without complication. IMPRESSION: Technically successful ultrasound with fluoroscopic-guided PICC line placement. POS: CECILIA
== END ==
LOC: SPEC 08:33
PROVIDERS: ATTEND Family Medicine
PROC: 05HY33Z Insertion of Infusion Device into Upper Vein, Percutaneous Approach (ICD-10-PCS; principal; 2018-07-21)
DX: Z45.2 Encounter for adjustment and management of vascular access device (principal); E11.69 Type 2 diabetes mellitus with other specified complication; M86.8X7 Other osteomyelitis, ankle and foot; E11.40 Type 2 diabetes mellitus with diabetic neuropathy, unspecified; M79.7 Fibromyalgia; K21.9 Gastro-esophageal reflux disease without esophagitis; G47.33 Obstructive sleep apnea (adult) (pediatric); F32.9 Major depressive disorder, single episode, unspecified; G25.81 Restless legs syndrome; I12.9 Hypertensive chronic kidney disease with stage 1 through stage 4 chronic kidney disease, or unspecified chronic kidney disease; E11.22 Type 2 diabetes mellitus with diabetic chronic kidney disease; N18.4 Chronic kidney disease, stage 4 (severe); M06.9 Rheumatoid arthritis, unspecified; L40.50 Arthropathic psoriasis, unspecified; M32.9 Systemic lupus erythematosus, unspecified; G89.4 Chronic pain syndrome; E78.2 Mixed hyperlipidemia; Z79.899 Other long term (current) drug therapy; Z79.84 Long term (current) use of oral hypoglycemic drugs; Z88.0 Allergy status to penicillin; Z88.1 Allergy status to other antibiotic agents; Z88.2 Allergy status to sulfonamides; Z88.5 Allergy status to narcotic agent; Z88.8 Allergy status to other drugs, medicaments and biological substances; Z91.013 Allergy to seafood
CPT/HCPCS: 36569; C1751; J1644

== ENCOUNTER 2018-08-15 20:31 | Inpatient (IN) | payer SELFPAY ==
[2018-08-15 22:01] LABS: #Eosinphils 0.2 thou/uL (0.0-0.7); #Monocytes 0.7 thou/uL (0.11-0.59); #Neutrophils 8.2 thou/uL (1.40-6.50); %Basophils 0.3 % (0.0-1.0); %Eosinophils 1.5 % (0.0-10.0); %Monocytes 6.4 % (0.0-10.0); %Neutrophils 73.9 % (42.0-75.0); Hemoglobin 11.4 g/dL (12.0-16.0); Mean Corpuscular HGB CONC 32.3 g/dL (32.0-36.0); Mean Corpuscular Hemoglobin 25.6 pg (27.0-31.0); Mean Corpuscular Volume 79.1 fL (78.0-98.0); Mean Platelet Volume 8.6 fL (7.4-10.4); Platelet Count 291 thou/uL (130-400); RBC Distribution Width 13.9 % (11.5-14.5); Red Blood Cell (RBC) Count 4.45 mill/uL (4.20-5.40); White Blood Cell (WBC) Count 11.1 thou/uL (4.8-10.8)
[2018-08-15 22:22] LABS: ALT (SGPT) 16 U/L (8-55); AST (SGOT) 18 U/L (5-34); Albumin 3.9 g/dL (3.5-5.0); Alkaline Phosphatase 89 U/L (40-150); Anion Gap 14 mmol/L (10-20); BUN (Urea Nitrogen) 17 mg/dL (9.8-20.1); Bilirubin, Total 0.3 mg/dL (0.2-1.2); Calc. Creatinine Clearance 0 mL/min (70-130); Calcium 9.7 mg/dL (7.8-10.44); Carbon Dioxide 25 mmol/L (22-29); Chloride 104 mmol/L (98-107); Estimated GFR-MDRD 48; Globulin 3.6 g/dL (2.4-3.5); Glucose 131 mg/dL (70-105); Potassium 4.4 mmol/L (3.5-5.1); Protein, Total 7.5 g/dL (6.0-8.3); Sodium 139 mmol/L (136-145)
[2018-08-15] MEDS ORDERED: Morphine 4 MG/ML VIAL ONE (22:23)
[2018-08-16 00:23] VITALS: BMI 36.6
[2018-08-16] MEDS ORDERED: VANCOMYCIN IVPB PRN (01:37)
[2018-08-16] MEDS ORDERED: Acetaminophen 325 MG TAB PO PRN (01:37)
[2018-08-16] MEDS ORDERED: Bisacodyl 5 MG TAB PO PRN (01:37)
[2018-08-16] MEDS ORDERED: Ondansetron ODT 4 MG TAB PO PRN (01:37)
[2018-08-16] MEDS ORDERED: HumaLOG 300 UNITS/3 ML VIAL SC PRN (01:41)
[2018-08-16] MEDS ORDERED: Dextrose 5% in Water 1,000 ML IV PRN (01:41)
[2018-08-16] MEDS ORDERED: Dextrose 50% Abboject 50 ML SYRINGE SLOW IVP PRN (01:41)
[2018-08-16] MEDS: Dextrose 5 %-0.45 % NaCl 1,000 ML IV SCH ×3 (02:56→21:31)
[2018-08-16 05:22] LABS: #Eosinphils 0.2 thou/uL (0.0-0.7); #Lymphocytes 2.1 thou/uL (1.20-3.40); #Monocytes 0.8 thou/uL (0.11-0.59); #Neutrophils 5.2 thou/uL (1.40-6.50); %Basophils 0.2 % (0.0-1.0); %Eosinophils 2.9 % (0.0-10.0); %Lymphocytes 24.9 % (21.0-51.0); %Monocytes 9.7 % (0.0-10.0); %Neutrophils 62.4 % (42.0-75.0); Hemoglobin 9.7 g/dL (12.0-16.0); Mean Corpuscular Hemoglobin 25.5 pg (27.0-31.0); Mean Corpuscular Volume 79.8 fL (78.0-98.0); Mean Platelet Volume 8.7 fL (7.4-10.4); Platelet Count 243 thou/uL (130-400); RBC Distribution Width 13.9 % (11.5-14.5); Red Blood Cell (RBC) Count 3.82 mill/uL (4.20-5.40); White Blood Cell (WBC) Count 8.4 thou/uL (4.8-10.8)
[2018-08-16 05:44] LABS: ALT (SGPT) 12 U/L (8-55); AST (SGOT) 16 U/L (5-34); Albumin 3.2 g/dL (3.5-5.0); Alkaline Phosphatase 74 U/L (40-150); Anion Gap 10 mmol/L (10-20); BUN (Urea Nitrogen) 13 mg/dL (9.8-20.1); Bilirubin, Total 0.3 mg/dL (0.2-1.2); Calc. Creatinine Clearance 87 mL/min (70-130); Calcium 8.9 mg/dL (7.8-10.44); Carbon Dioxide 26 mmol/L (22-29); Chloride 108 mmol/L (98-107); Estimated GFR-MDRD 56; Globulin 2.8 g/dL (2.4-3.5); Glucose 119 mg/dL (70-105); Potassium 4.1 mmol/L (3.5-5.1); Sodium 140 mmol/L (136-145)
--- NOTE | 2018-08-16 06:02 | HP ---
CHIEF COMPLAINT: Skin abscess. HISTORY OF PRESENT ILLNESS: This is a 53-year-old female with past medical history of hyperlipidemia , sleep apnea, asthma, celiac disease, fibromyalgia, diabetes mellitus type 2, hypertension, rheumato id arthritis, psoriatic arthritis, lupus, GERD, migraines, being admitted for right lower quadrant ab dominal abscess. Per the patient, the abscess came on a week ago while she was at rehab and the ventura ent stated that she spoke to the Physician Ditching Machine Operating Engineer at the rehab center at [facility] and the Physici an Ditching Machine Operating Engineer prescribed the patient clindamycin. The patient stated that she was on vancomycin for a lmost 5 weeks, but after the dose of vancomycin had finished that is when she noted that she had a ri ght lower quadrant abdominal abscess which was very small when it started and it started to spread. The patient thinks that she probably got this abscess from receiving injections around the area. Upo n further questioning, the patient stated that she has completed her course of clindamycin IV. The p atient admits to having some subjective fevers and also having some diarrhea when she was on the anti biotics initially. REVIEW OF SYSTEMS: Positive for fever, positive for pain, otherwise as documented in the HPI. All o ther systems were reviewed and are negative. PAST MEDICAL HISTORY: Hyperlipidemia, hypertriglycerides, sleep apnea, asthma, celiac disease, devia lambert septum, fibromyalgia, diabetes mellitus type 2, hypertension, rheumatoid arthritis, psoriatic art hritis, lupus, GERD, glaucoma, neuropathy, migraines, cervical cancer in 1986, restless leg syndrome, carpal tunnel, cataracts. FAMILY HISTORY: Reviewed and noncontributory to this visit. PAST SURGICAL HISTORY: Hysterectomy, tonsillectomy, nasal surgery to correct deviated septum, cholec ystectomy, tubal ligation, cyst removal from the left breast, exploratory abdominal surgery, amputati on of the right fifth toe, right foot fifth toe amputation, wart in throat removed, right ankle surge ry. PSYCHIATRIC HISTORY: Anxiety, depression, presents alert and oriented x3. SOCIAL HISTORY: The patient quit smoking less than 10 years ago. The patient is occasional ethanol user and the patient denies any illicit drug use. ALLERGIES: Patient is allergic to AMOXICILLIN, AMPICILLIN, BACTRIM, CEFTIN, CODEINE, CYMBALTA, GABAP ENTIN, HYDRALAZINE, LIPITOR, LYRICA, PENICILLINS, SULFA. MEDICATIONS: Proventil, diphenhydramine 25, vitamin D, melatonin, tramadol, sertraline 100 mg, Crest or 40 mg, ondansetron, metformin 1000 mg, glipizide 5 mg, furosemide 40 mg, potassium chloride, [place]uhler , ibuprofen, ipratropium, pantoprazole, Florastor, loperamide. PHYSICAL EXAMINATION: VITAL SIGNS: In the ED 166/95 blood pressure, pulse is 101, respiratory rate of 20, temperature of 9 9.6, O2 saturation of 97. GENERAL APPEARANCE: The patient does not appear to be in acute distress. The patient is alert, orie nted x3, speaking in full sentences, lying in bed comfortably. HEENT: Normocephalic, atraumatic. Pupils are equally round and reactive to light. Extraocular move ments are intact. No scleral icterus. NECK: Trachea is midline. No JVD. LUNGS: Clear to auscultation bilaterally. No wheezing, no rales appreciated. CARDIOVASCULAR: Positive S1, S2. The patient is tachycardic. ABDOMEN: At the right lower quadrant the patient has about 5 x 6 cm area of indurated fluctuant absc ess and erythema about 12 inches across from the right lower quadrant. The patient has tenderness to palpation around the area. Positive bowel sounds in all quadrants. EXTREMITIES: Upper extremities; the patient has good range of motion of the upper extremity. Good p ulses. Lower extremities; the patient has good range of motion in lower extremities and good pulses. NEUROLOGIC: She is alert, oriented x3, does not appear to be in any acute distress. Cranial nerves II-XII is grossly intact. SKIN: Skin is dry and warm. The patient appears to have cellulitis with possible abscess at the rig ht lower quadrant of the abdomen. PSYCHIATRIC: Alert and oriented x3. ED COURSE: In the ED, the patient was given normal saline, vancomycin and morphine. LABORATORY DATA: WBC 11.1, hemoglobin 11.4, hematocrit 35.2, platelet count is 281. Sodium 139, pot assium 4.4, chloride 104, BUN 17, creatinine 1.18, glucose 131. ASSESSMENT AND PLAN: 1. This is a 53-year-old female be admitted for right lower quadrant abdominal cellulitis with possi ble abscess. At this point, General Surgery has been consulted for possible incision and drainage. We started the patient on vancomycin. We will continue patient on vancomycin. We will put Tylenol p .r.n. for pain and for fevers. We will follow up on cultures. 2. Diabetes mellitus type 2. We will continue the patient on insulin sliding scale. 3. Hypertension. Continue the patient on her home medication. 4. Asthma. We will continue patient on DuoNeb treatment p.r.n. 5. Celiac disease. Continue the patient on her home medications. 6. Hyperlipidemia. Continue patient's home medications. 7. Rheumatoid arthritis. We will continue patient on home medication. 8. History of lupus. We will continue patient on current management. 9. History of gastroesophageal reflux disease. We will continue patient on current management. 10. Neuropathy. Continue the patient on her current management. 11. Deep venous thrombosis and gastrointestinal prophylaxis.
[2018-08-16] MEDS: Enoxaparin Sodium 40 MG/0.4 ML SYRINGE SC SCH (07:55)
[2018-08-16] MEDS ORDERED: PROPOFOL 200 MG/20 ML VIAL ONE (09:56)
[2018-08-16] MEDS ORDERED: Lidocaine 1% PF 5 ML VIAL ONE (09:56)
[2018-08-16] MEDS ORDERED: Succinylcholine Chloride 20 MG/ML 10 ml SYRINGE FS ONE (09:56)
[2018-08-16] MEDS ORDERED: Ondansetron HCl/PF 4 MG/2 ML Vial ONE (09:56)
--- NOTE | 2018-08-16 12:27 | CON ---
DATE OF CONSULTATION: 08/16/2018 GENERAL SURGERY CONSULTATION CHIEF COMPLAINT: Painful swollen area of right lateral abdomen. HOSPITAL COURSE: The patient is a 53-year-old female with multiple medical problems who was recently in the hospital where she was given Lovenox shots complicated by hematoma. Over the last couple of weeks, hematoma has become more and more painful. Skin becoming red, it is now fluctuance and draini ng purulent fluid. She has had subjective fevers. She was on clindamycin did not help. PAST MEDICAL HISTORY: Significant for hypertension, lupus, fibromyalgia, obesity, rheumatoid arthrit is, psoriatic arthritis, diabetes mellitus, cervical cancer, fractured ankle, ischemic toes. PAST SURGICAL HISTORY: She has had a laparoscopic cholecystectomy, hysterectomy, tonsil and adenoide ctomy, PE tubes. She has had diagnostic laparoscopy, bilateral tubal ligation, amputation of her rig ht fifth toe and she had a pinning of ankle fracture. ALLERGIES: PENICILLIN, CODEINE, LYRICA, LIPITOR, NEURONTIN, GABAPENTIN, CYMBALTA. SOCIAL HISTORY: She is . She has no tobacco and no alcohol. FAMILY HISTORY: Gallbladder problems, irritable bowel problems, breast cancer in mother and hyperten timothy. PHYSICAL EXAMINATION: VITAL SIGNS: Temperature 96, pulse 75, blood pressure 140/82. GENERAL APPEARANCE: She is an obese female, awake, alert, in no apparent distress. HEENT: Unremarkable. LUNGS: Clear. HEART: Regular rate and rhythm. ABDOMEN: Obese. There is a 12 x 8 cm fluctuant erythematous mass in the right lateral abdomen with a draining sinus in the center. LABORATORY DATA: Her white count is 8.4, H&H 9 and 30, platelet count 243. Electrolytes are fine. ASSESSMENT: Abdominal wall abscess. PLAN: I&D debridement. CONSENT: I have discussed the planned procedure as well as risk of bleeding, infection, injury to ou r recurrence of this infection. She understands and gives informed consent.
[2018-08-16] MEDS ORDERED: Fentanyl 100 MCG/2 ML VIAL ONE ×3 (13:42→14:58)
[2018-08-16] MEDS ORDERED: Famotidine/PF 20 mg/2ml Vial ONE (13:42)
--- NOTE | 2018-08-16 13:48 | PDOC.PN ---
- Subjective Encounter Start Date: 08/16/18 Encounter Start Time: 13:40 Subjective: f/u for abd wall abscess with I&D planned. Receiving Vancomycin -: currently. - Objective Resuscitation Status: Resuscitation Status FULL:Full Resuscitation MAR Reviewed: Yes Vital Signs & Weight: Vital Signs (12 hours) Temp Pulse Resp BP Pulse Ox 08/16/18 11:18 98.4 F 84 18 158/78 H 95 08/16/18 08:00 94 L 08/16/18 07:49 98.6 F 75 18 140/82 94 L 08/16/18 04:05 97.4 F L 82 18 163/85 H 95 Weight Weight 194 lb 0.108 oz I&O: 08/15/18 08/16/18 08/17/18 06:59 06:59 06:59 Intake Total 850 Balance 850 Result Diagrams: 08/16/18 04:54 08/16/18 04:54 Additional Labs: Accuchecks 08/16/18 08/16/18 11:16 04:46 POC Glucose 131 H 133 H Microbiology 08/15/18 22:10 Venous blood - Right Hand Blood Culture - Preliminary Specimen has been received and culture in progress. No Growth to date. 08/15/18 22:06 Venous blood - Left Hand Blood Culture - Preliminary Specimen has been received and culture in progress. No Growth to date. Laboratory Tests 08/15/18 08/15/18 08/15/18 21:54 21:54 21:54 WBC 11.1 H Creatinine 1.18 H Lactic Acid 1.2 Phys Exam - Physical Examination Constitutional: NAD HEENT: PERRLA, sclera anicteric, oral pharynx no lesions Neck: no nodes, no JVD, supple, full ROM Respiratory: no wheezing, no rales, no rhonchi, clear to auscultation bilateral S1, S2 Cardiovascular: RRR, no significant murmur, no rub, gallop RLQ large anterior abd wall abscess, erythema +TTP Gastrointestinal: soft, positive bowel sounds Musculoskeletal: no edema, pulses present Neurological: normal sensation, moves all 4 limbs Psychiatric: normal affect, A&O x 3 Skin: normal turgor, cap refill <2 seconds Dx/Plan (1) Abdominal wall abscess Code(s): L02.211 - CUTANEOUS ABSCESS OF ABDOMINAL WALL Status: Acute Comment : I&D planned for today, continue Vancomycin, WCT for local care (2) CKD (chronic kidney disease), stage III Code(s): N18.3 - CHRONIC KIDNEY DISEASE, STAGE 3 (MODERATE) Status: Chronic Comment: Stable, avoid nephrotoxic meds and limit contrast exposure (3) Diabetes mellitus Code(s): E11.9 - TYPE 2 DIABETES MELLITUS WITHOUT COMPLICATIONS Status: Chronic Qualifiers: Diabetes mellitus type: type 2 Diabetes mellitus fdc insulin use: without fdc use Diabetes mellitus complication status: with kidney complications Chronic kidney disease stage: stage 3 (moderate) Comment: Continue Januvia, Glipizide, serial accuchecks, ISS (4) Hypertension Code(s): I10 - ESSENTIAL (PRIMARY) HYPERTENSION Status: Chronic Qualifiers: Hypertension type: essential hypertension Qualified Code(s): I10 - Essential (primary) hypertension Comment: Resume home BP regimen, serial monitoring - Plan continue antibiotics, PT/OT, long term care social worker stable overall -: Continue Vancomycin -: I&D planned for today -: Resume home BP regimen -: WCT for local care of abd wound * AM lab: BMP, CBC
[2018-08-16] MEDS ORDERED: PROVENTIL INHALER 6.7 G (200 INHALATIONS) INH PRN (13:54)
[2018-08-16] MEDS ORDERED: diphenhydrAMINE 25 MG CAP PO PRN (13:54)
[2018-08-16] MEDS ORDERED: PROPYLENE GLYCOL OP PRN (13:54)
[2018-08-16] MEDS ORDERED: traMADol HCl 50 MG TAB PO PRN ×2 (13:54→14:30)
[2018-08-16] MEDS ORDERED: HYDROcodone/Acetaminophen 5/325 mg Tablet PO PRN (13:54)
[2018-08-16] MEDS ORDERED: Ondansetron HCl/PF 4 MG/2 ML Vial IVP PRN ×2 (14:28→14:35)
[2018-08-16] MEDS ORDERED: Artificial Tear Sol 15 ML BOT EA EYE PRN (14:35)
[2018-08-16] MEDS ORDERED: Morphine 4 MG/ML Carpuject SLOW IVP PRN (14:35)
[2018-08-16] MEDS ORDERED: Adenosine 6 MG/2 ML VIAL ONE (14:43)
[2018-08-16] MEDS ORDERED: Morphine 4 MG/ML VIAL IV PRN (14:51)
[2018-08-16] MEDS: Mometasone 100 MCG HFA INHALER INH SCH (18:45)
[2018-08-16] MEDS: Mirtazapine 15 MG TAB PO SCH (20:17)
--- NOTE | 2018-08-16 20:19 | OP ---
DATE OF PROCEDURE: 08/16/2018 PREOPERATIVE DIAGNOSIS: Abscess, right abdominal wall with cellulitis. SURGEON: Brody Palencia M.D. PROCEDURE PERFORMED: Incision, drainage and debridement of right abdominal wall. INDICATIONS: This is a 53-year-old female who had developed a hematoma in her right abdominal wall a fter Lovenox injection. This got secondarily infected. FINDINGS: A 3 x 3 x 3 cm abscess cavity that was completely excised with a 10 x 4 x 4 cm wide local excision to include skin and subcutaneous tissue. PROCEDURE IN DETAIL: After informed consent was obtained, the patient was taken to the operating ayleen m, given general endotracheal anesthesia. Her abdomen was prepped and draped in usual fashion. An e lliptical incision was performed to excise the necrotic skin and palpable indurated tissue. Approxim ately 10 x 4 x 4 cm wedge of tissue excised. On the back table, this was incised to release dishwate r colored fluid that was sent for culture. Hemostasis was achieved utilizing electrocautery and the wound was thoroughly irrigated with the pulse net application architect and 3 liters of saline. It was packed open w ith Betadine gauze covered by sterile dry gauze. The patient tolerated the procedure well and was tr ansferred to recovery in good condition. Sponge and needle count verified correct x2.
[2018-08-16] MEDS ORDERED: BECLOMETHASONE INH SCH (21:00)
[2018-08-16] MEDS ORDERED: MELATONIN PO SCH (21:00)
[2018-08-16] MEDS ORDERED: Non-Formulary Item 1 EACH (Cholecalciferol (Vitamin D3) [Vitamin D3] 2,000 UNIT) PO SCH (21:00)
[2018-08-16] MEDS: HYDROcodone/Acetaminophen 10/325 mg Tablet PO PRN (21:30)
[2018-08-16] MEDS: Vancomycin HCl 1.25 GM in Sodium Chloride 0.9% 250 ML 250 ML IVPB SCH (22:30)
[2018-08-17 04:49] LABS: Anion Gap 10 mmol/L (10-20); BUN (Urea Nitrogen) 10 mg/dL (9.8-20.1); Calc. Creatinine Clearance 81 mL/min (70-130); Calcium 9.2 mg/dL (7.8-10.44); Carbon Dioxide 27 mmol/L (22-29); Chloride 108 mmol/L (98-107); Estimated GFR-MDRD 52; Glucose 73 mg/dL (70-105); Potassium 3.8 mmol/L (3.5-5.1); Sodium 141 mmol/L (136-145)
[2018-08-17 04:57] LABS: Eosinophils 4 % (0-10); Hemoglobin 10.1 g/dL (12.0-16.0); Hypochromia SLIGHT = 6-15 cells (100X) (0-5/hpf); Lymphocytes 29 % (21-51); MDiff Complete? YES; Mean Corpuscular HGB CONC 31.7 g/dL (32.0-36.0); Mean Corpuscular Hemoglobin 25.6 pg (27.0-31.0); Mean Corpuscular Volume 80.5 fL (78.0-98.0); Mean Platelet Volume 8.8 fL (7.4-10.4); Monocytes 7 % (0-10); Neutrophil 60 % (42-75); PLT Morphology Comment Appears Adequate; Platelet Count 240 thou/uL (130-400); Polychromasia SLIGHT = 2-3 cells (100X) (0-2/hpf); RBC Distribution Width 13.9 % (11.5-14.5); Red Blood Cell (RBC) Count 3.96 mill/uL (4.20-5.40); White Blood Cell (WBC) Count 5.8 thou/uL (4.8-10.8)
[2018-08-17] MEDS ORDERED: Nystatin Powder 15 GM BOT TOP PRN (06:07)
[2018-08-17] MEDS ORDERED: POTASSIUM CHLORIDE 10 MEQ PO SCH (09:00)
[2018-08-17] MEDS: HYDROcodone/Acetaminophen 10/325 mg Tablet PO PRN ×3 (09:10→20:43)
[2018-08-17] MEDS: Furosemide 40 MG TAB PO SCH (09:11)
[2018-08-17] MEDS: Enoxaparin Sodium 40 MG/0.4 ML SYRINGE SC SCH (09:11)
[2018-08-17] MEDS: Alogliptin 25 MG TAB PO SCH (09:11)
[2018-08-17] MEDS: Potassium Chloride 10 MEQ TAB PO SCH (09:11)
[2018-08-17] MEDS: Mometasone 100 MCG HFA INHALER INH SCH ×2 (10:45→18:38)
--- NOTE | 2018-08-17 11:27 | PRG ---
DATE OF SERVICE: 08/17/2018 SUBJECTIVE: She said that she had some cough, productive of yellow sputum yesterday, but that she cook s not had any today. She said she felt, sore all over. Wound is doing okay. There was some drainag e had to reinforce it. OBJECTIVE: VITAL SIGNS: Temperature is 98.3, pulse 70, blood pressure 182/95. GENERAL: She looks good, color is good. She is in good spirits. SKIN: Her cellulitis is pretty well resolved from her skin. The cultures are growing out a gram negative augustus. LABORATORY DATA: Her white count is 5.8, H&H 10 and 31, platelet count 240. ASSESSMENT: Abdominal wall abscess due to infected hematoma. PLAN: Wound Care, they are supposed to come by to put a wound VAC on her, continue antibiotics.
--- NOTE | 2018-08-17 15:07 | PDOC.PN ---
- Subjective Encounter Start Date: 08/17/18 Encounter Start Time: 14:50 Subjective: f/u for RLQ abd wall abscess s/p I&D POD #1. Feels better overall -: with some abd tenderness. No fever. - Objective Resuscitation Status: Resuscitation Status FULL:Full Resuscitation MAR Reviewed: Yes Vital Signs & Weight: Vital Signs (12 hours) Temp Pulse Resp BP Pulse Ox 08/17/18 08:00 98.3 F 70 20 182/95 H 97 Weight Admit Weight 194 lb 0.108 oz Weight 194 lb 0.108 oz I&O: 08/16/18 08/17/18 08/18/18 06:59 06:59 06:59 Intake Total 850 360 720 Balance 850 360 720 Result Diagrams: 08/17/18 03:47 08/17/18 03:47 Additional Labs: Accuchecks 08/17/18 08/17/18 08/17/18 11:16 09:13 04:52 POC Glucose 141 H 119 H 65 L 08/16/18 08/16/18 20:45 16:28 POC Glucose 201 H 157 H Microbiology 08/16/18 14:17 Abdomen - Right Bacterial Culture - Preliminary 08/16/18 14:17 Abdomen - Right Gram Negative Dhaval 08/15/18 22:10 Venous blood - Right Hand Blood Culture - Preliminary Specimen has been received and culture in progress. No Growth to date. 08/15/18 22:10 Venous blood - Right Hand Blood Culture - Preliminary NO GROWTH AT 48 HOURS 08/15/18 22:06 Venous blood - Left Hand Blood Culture - Preliminary Specimen has been received and culture in progress. No Growth to date. 08/15/18 22:06 Venous blood - Left Hand Blood Culture - Preliminary NO GROWTH AT 48 HOURS Laboratory Tests 08/15/18 08/15/18 08/15/18 21:54 21:54 21:54 WBC 11.1 H Creatinine 1.18 H Lactic Acid 1.2 Phys Exam - Physical Examination Constitutional: NAD HEENT: PERRLA, sclera anicteric, oral pharynx no lesions Neck: no nodes, no JVD, supple, full ROM Respiratory: no wheezing, no rales, no rhonchi, clear to auscultation bilateral S1, S2 Cardiovascular: RRR, no significant murmur, no rub, gallop RLQ abd wound with gauze packing in base, clean margins, no purulence Gastrointestinal: soft, no distention, positive bowel sounds Musculoskeletal: no edema, pulses present Neurological: normal sensation, moves all 4 limbs Psychiatric: normal affect, A&O x 3 Deviation from normal: erythema under bilat breasts Skin: normal turgor, cap refill <2 seconds Dx/Plan (1) Abdominal wall abscess Code(s): L02.211 - CUTANEOUS ABSCESS OF ABDOMINAL WALL Status: Acute Comment : s/p I&D POD #1, continue Vancomycin, WCT for local care (2) CKD (chronic kidney disease), stage III Code(s): N18.3 - CHRONIC KIDNEY DISEASE, STAGE 3 (MODERATE) Status: Chronic Comment: Stable, avoid nephrotoxic meds and limit contrast exposure (3) Diabetes mellitus Code(s): E11.9 - TYPE 2 DIABETES MELLITUS WITHOUT COMPLICATIONS Status: Chronic Qualifiers: Diabetes mellitus type: type 2 Diabetes mellitus superintendent terminal insulin use: without superintendent terminal use Diabetes mellitus complication status: with kidney complications Chronic kidney disease stage: stage 3 (moderate) Comment: Continue Januvia, Glipizide, serial accuchecks, ISS (4) Hypertension Code(s): I10 - ESSENTIAL (PRIMARY) HYPERTENSION Status: Chronic Qualifiers: Hypertension type: essential hypertension Qualified Code(s): I10 - Essential (primary) hypertension Comment: Resume home BP regimen, serial monitoring - Plan continue antibiotics, PT/OT, social worker health services, out of bed/ambulate Stable currently -: WCT for local care and W-D dressing changes, considering wound vac -: Nystatin powder BID -: PT for mobilization -: AM lab: BMP, CBC * .
[2018-08-17] MEDS ORDERED: Lisinopril 2.5 MG TAB PO SCH (16:15)
[2018-08-17] MEDS: metFORMIN 500 MG TAB PO SCH (17:03)
[2018-08-17] MEDS: Mirtazapine 15 MG TAB PO SCH (20:36)
[2018-08-17] MEDS: Vancomycin HCl 1.25 GM in Sodium Chloride 0.9% 250 ML 250 ML IVPB SCH (22:36)
[2018-08-17] MEDS ORDERED: Ketorolac Tromethamine 30 MG/ML VIAL IVP SCH (23:15)
[2018-08-18 05:05] LABS: Anion Gap 13 mmol/L (10-20); BUN (Urea Nitrogen) 12 mg/dL (9.8-20.1); Calc. Creatinine Clearance 69 mL/min (70-130); Calcium 9.2 mg/dL (7.8-10.44); Carbon Dioxide 27 mmol/L (22-29); Chloride 105 mmol/L (98-107); Estimated GFR-MDRD 43; Glucose 94 mg/dL (70-105); Potassium 3.6 mmol/L (3.5-5.1); Sodium 141 mmol/L (136-145)
[2018-08-18 05:09] LABS: Band 2 % (5-11); Eosinophils 3 % (0-10); Hemoglobin 9.9 g/dL (12.0-16.0); Lymphocytes 40 % (21-51); MDiff Complete? YES; Mean Corpuscular HGB CONC 31.9 g/dL (32.0-36.0); Mean Corpuscular Hemoglobin 25.3 pg (27.0-31.0); Mean Corpuscular Volume 79.1 fL (78.0-98.0); Mean Platelet Volume 8.6 fL (7.4-10.4); Monocytes 8 % (0-10); Neutrophil 47 % (42-75); PLT Morphology Comment Appears Adequate; Platelet Count 241 thou/uL (130-400); Red Blood Cell (RBC) Count 3.91 mill/uL (4.20-5.40); White Blood Cell (WBC) Count 6.3 thou/uL (4.8-10.8)
[2018-08-18] MEDS: Mometasone 100 MCG HFA INHALER INH SCH ×2 (06:52→18:15)
[2018-08-18] MEDS: Furosemide 40 MG TAB PO SCH (08:21)
[2018-08-18] MEDS: Potassium Chloride 10 MEQ TAB PO SCH (08:21)
[2018-08-18] MEDS: Rosuvastatin 20 MG TAB PO SCH (08:23)
[2018-08-18] MEDS: Alogliptin 25 MG TAB PO SCH (08:23)
[2018-08-18] MEDS: metFORMIN 500 MG TAB PO SCH ×2 (08:23→16:43)
[2018-08-18] MEDS: Lisinopril 2.5 MG TAB PO SCH (08:24)
[2018-08-18] MEDS: Enoxaparin Sodium 40 MG/0.4 ML SYRINGE SC SCH (08:27)
[2018-08-18] MEDS: HYDROcodone/Acetaminophen 10/325 mg Tablet PO PRN ×2 (12:12→20:21)
[2018-08-18] MEDS ORDERED: Ketorolac Tromethamine 30 MG/ML VIAL IVP PRN (12:58)
--- NOTE | 2018-08-18 17:19 | PDOC.PN ---
- Subjective Encounter Start Date: 08/18/18 Encounter Start Time: 17:10 Subjective: f/u for RLQ abd wall abscess s/p I&D POD #2. Overall feeling ok with some -: mild pain controlled with Toradol. Remains on Vancomycin. - Objective Resuscitation Status: Resuscitation Status FULL:Full Resuscitation MAR Reviewed: Yes Vital Signs & Weight: Vital Signs (12 hours) Temp Pulse Resp BP BP Pulse Ox 08/18/18 12:10 155/51 H 08/18/18 08:24 66 159/78 H 08/18/18 08:00 98 08/18/18 07:08 98.5 F 66 16 159/78 H 98 08/18/18 06:52 72 16 93 L Weight Admit Weight 194 lb 0.108 oz Weight 194 lb 0.108 oz I&O: 08/17/18 08/18/18 08/19/18 06:59 06:59 06:59 Intake Total 360 1630 960 Balance 360 1630 960 Result Diagrams: 08/18/18 03:55 08/18/18 03:55 Additional Labs: Accuchecks 08/18/18 08/18/18 08/18/18 16:05 11:56 04:51 POC Glucose 131 H 115 H 97 08/17/18 19:45 POC Glucose 99 Microbiology 08/16/18 14:17 Abdomen - Right Bacterial Culture - Preliminary 08/16/18 14:17 Abdomen - Right Anaerobic Culture - Preliminary Proteus mirabilis 08/16/18 14:17 Abdomen - Right Bacterial Culture - Preliminary 08/16/18 14:17 Abdomen - Right Gram Negative Dhaval 08/15/18 22:10 Venous blood - Right Hand Blood Culture - Preliminary Specimen has been received and culture in progress. No Growth to date. 08/15/18 22:10 Venous blood - Right Hand Blood Culture - Preliminary NO GROWTH AT 48 HOURS 08/15/18 22:06 Venous blood - Left Hand Blood Culture - Preliminary Specimen has been received and culture in progress. No Growth to date. 08/15/18 22:06 Venous blood - Left Hand Blood Culture - Preliminary NO GROWTH AT 48 HOURS Laboratory Tests 08/15/18 08/15/18 08/15/18 21:54 21:54 21:54 WBC 11.1 H Creatinine 1.18 H Lactic Acid 1.2 Phys Exam - Physical Examination Constitutional: NAD HEENT: PERRLA, sclera anicteric, oral pharynx no lesions Neck: no nodes, no JVD, supple, full ROM Respiratory: no wheezing, no rales, no rhonchi, clear to auscultation bilateral S1, S2 Cardiovascular: RRR, no significant murmur, no rub, gallop surgical dressing on RLQ wound Gastrointestinal: soft, no distention, positive bowel sounds Musculoskeletal: no edema, pulses present Neurological: normal sensation, moves all 4 limbs Psychiatric: normal affect, A&O x 3 Skin: normal turgor, cap refill <2 seconds Dx/Plan (1) Abdominal wall abscess Code(s): L02.211 - CUTANEOUS ABSCESS OF ABDOMINAL WALL Status: Acute Comment : s/p I&D POD #2, d/c Vancomycin, WCT for local care (2) CKD (chronic kidney disease), stage III Code(s): N18.3 - CHRONIC KIDNEY DISEASE, STAGE 3 (MODERATE) Status: Chronic Comment: Stable, avoid nephrotoxic meds and limit contrast exposure (3) Diabetes mellitus Code(s): E11.9 - TYPE 2 DIABETES MELLITUS WITHOUT COMPLICATIONS Status: Chronic Qualifiers: Diabetes mellitus type: type 2 Diabetes mellitus watermelon inspector insulin use: without watermelon inspector use Diabetes mellitus complication status: with kidney complications Chronic kidney disease stage: stage 3 (moderate) Comment: Continue Januvia, Glipizide, serial accuchecks, ISS (4) Hypertension Code(s): I10 - ESSENTIAL (PRIMARY) HYPERTENSION Status: Chronic Qualifiers: Hypertension type: essential hypertension Qualified Code(s): I10 - Essential (primary) hypertension Comment: Resume home BP regimen, serial monitoring - Plan 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
[2018-08-18] MEDS: Mirtazapine 15 MG TAB PO SCH (20:20)
[2018-08-18 22:15] LABS: Vancomycin, Trough 15.6 ug/mL
[2018-08-18] MEDS: Vancomycin HCl 1.25 GM in Sodium Chloride 0.9% 250 ML 250 ML IVPB SCH (22:35)
[2018-08-19] MEDS: HYDROcodone/Acetaminophen 10/325 mg Tablet PO PRN ×4 (00:33→20:39)
[2018-08-19] MEDS: Mometasone 100 MCG HFA INHALER INH SCH ×2 (06:46→18:18)
[2018-08-19] MEDS: metFORMIN 500 MG TAB PO SCH ×2 (09:24→16:25)
[2018-08-19] MEDS: Alogliptin 25 MG TAB PO SCH (09:25)
[2018-08-19] MEDS: Lisinopril 2.5 MG TAB PO SCH (09:25)
[2018-08-19] MEDS: Furosemide 40 MG TAB PO SCH (09:25)
[2018-08-19] MEDS: Rosuvastatin 20 MG TAB PO SCH (09:25)
[2018-08-19] MEDS: Potassium Chloride 10 MEQ TAB PO SCH (09:41)
[2018-08-19] MEDS: Enoxaparin Sodium 40 MG/0.4 ML SYRINGE SC SCH (09:41)
--- NOTE | 2018-08-19 13:39 | PDOC.PN ---
- Subjective Encounter Start Date: 08/19/18 Encounter Start Time: 13:35 Subjective: f/u for RLQ abd wall abscess s/p I&D POD #3 with wound cx + Proteus -: spp. no new complaints - Objective Resuscitation Status: Resuscitation Status FULL:Full Resuscitation MAR Reviewed: Yes Vital Signs & Weight: Vital Signs (12 hours) Temp Pulse Resp BP BP Pulse Ox 08/19/18 09:25 59 L 155/82 H 08/19/18 08:00 96 08/19/18 07:09 97.9 F 59 L 16 155/82 H 96 08/19/18 06:46 64 20 100 Weight Admit Weight 194 lb 0.108 oz Weight 194 lb 0.108 oz I&O: 08/18/18 08/19/18 08/20/18 06:59 06:59 06:59 Intake Total 1630 960 Balance 1630 960 Result Diagrams: 08/18/18 03:55 08/18/18 03:55 Additional Labs: Accuchecks 08/19/18 08/18/18 08/18/18 04:43 19:56 16:05 POC Glucose 126 H 136 H 131 H Microbiology 08/16/18 14:17 Abdomen - Right Bacterial Culture - Preliminary 08/16/18 14:17 Abdomen - Right Anaerobic Culture - Preliminary Proteus mirabilis 08/16/18 14:17 Abdomen - Right Bacterial Culture - Preliminary 08/16/18 14:17 Abdomen - Right Anaerobic Culture - Preliminary Proteus mirabilis 08/16/18 14:17 Abdomen - Right Bacterial Culture - Preliminary 08/16/18 14:17 Abdomen - Right Gram Negative Dhaval 08/15/18 22:10 Venous blood - Right Hand Blood Culture - Preliminary Specimen has been received and culture in progress. No Growth to date. 08/15/18 22:10 Venous blood - Right Hand Blood Culture - Preliminary NO GROWTH AT 48 HOURS 08/15/18 22:06 Venous blood - Left Hand Blood Culture - Preliminary Specimen has been received and culture in progress. No Growth to date. 08/15/18 22:06 Venous blood - Left Hand Blood Culture - Preliminary NO GROWTH AT 48 HOURS Laboratory Tests 08/15/18 08/15/18 08/15/18 21:54 21:54 21:54 WBC 11.1 H Creatinine 1.18 H Lactic Acid 1.2 Phys Exam - Physical Examination Constitutional: NAD HEENT: PERRLA, sclera anicteric, oral pharynx no lesions Neck: no nodes, no JVD, supple, full ROM Respiratory: no wheezing, no rales, no rhonchi, clear to auscultation bilateral S1, S2 Cardiovascular: RRR, no significant murmur, no rub, gallop RLQ open wound with gauze packing in place, wound margins clean Gastrointestinal: soft, no distention, positive bowel sounds RLE/ankle with cast in place Musculoskeletal: no edema, pulses present Neurological: normal sensation, moves all 4 limbs Psychiatric: normal affect, A&O x 3 Skin: normal turgor, cap refill <2 seconds Dx/Plan (1) Abdominal wall abscess Code(s): L02.211 - CUTANEOUS ABSCESS OF ABDOMINAL WALL Status: Acute Comment : s/p I&D POD #3, d/c Vancomycin, WCT for local care, plan for home wound care and ? outpt Wound Clinic (2) CKD (chronic kidney disease), stage III Code(s): N18.3 - CHRONIC KIDNEY DISEASE, STAGE 3 (MODERATE) Status: Chronic Comment: Stable, avoid nephrotoxic meds and limit contrast exposure (3) Diabetes mellitus Code(s): E11.9 - TYPE 2 DIABETES MELLITUS WITHOUT COMPLICATIONS Status: Chronic Qualifiers: Diabetes mellitus type: type 2 Diabetes mellitus nursing home insulin use: without roasterman use Diabetes mellitus complication status: with kidney complications Chronic kidney disease stage: stage 3 (moderate) Comment: Continue Januvia, Glipizide, serial accuchecks, ISS (4) Hypertension Code(s): I10 - ESSENTIAL (PRIMARY) HYPERTENSION Status: Chronic Qualifiers: Hypertension type: essential hypertension Qualified Code(s): I10 - Essential (primary) hypertension Comment: Resume home BP regimen, serial monitoring - Plan 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
[2018-08-19] MEDS: Mirtazapine 15 MG TAB PO SCH (20:38)
[2018-08-19] MEDS ORDERED: ALPRAZolam 0.25 MG TAB PO PRN (21:14)
[2018-08-20] MEDS: HYDROcodone/Acetaminophen 10/325 mg Tablet PO PRN ×3 (04:21→22:31)
[2018-08-20] MEDS: Mometasone 100 MCG HFA INHALER INH SCH ×2 (07:12→18:40)
[2018-08-20] MEDS: metFORMIN 500 MG TAB PO SCH ×2 (07:47→17:40)
[2018-08-20] MEDS: Alogliptin 25 MG TAB PO SCH (07:48)
[2018-08-20] MEDS: Rosuvastatin 20 MG TAB PO SCH (07:48)
[2018-08-20] MEDS: Potassium Chloride 10 MEQ TAB PO SCH (07:48)
[2018-08-20] MEDS: Furosemide 40 MG TAB PO SCH (07:48)
[2018-08-20] MEDS: Enoxaparin Sodium 40 MG/0.4 ML SYRINGE SC SCH (07:48)
[2018-08-20] MEDS: Lisinopril 2.5 MG TAB PO SCH (07:49)
--- NOTE | 2018-08-20 16:09 | PDOC.PN ---
- Subjective Encounter Start Date: 08/20/18 Encounter Start Time: 16:00 Subjective: f/u for RLQ abd wall abscess s/p I&D with wound packing and dressing -: changes q48h. Apparently pt became agitated overnight and made suicidal -: comments to nursing. Currently with sitter 1:1. - Objective Resuscitation Status: Resuscitation Status FULL:Full Resuscitation MAR Reviewed: Yes Vital Signs & Weight: Vital Signs (12 hours) Temp Pulse Resp BP BP Pulse Ox 08/20/18 08:00 98 08/20/18 07:49 61 129/61 08/20/18 07:31 98.5 F 61 16 129/61 98 08/20/18 07:12 63 18 97 Weight Admit Weight 194 lb 0.108 oz Weight 194 lb 0.108 oz I&O: 08/19/18 08/20/18 08/21/18 06:59 06:59 06:59 Intake Total 960 2120 420 Balance 960 2120 420 Result Diagrams: 08/18/18 03:55 08/18/18 03:55 Additional Labs: Accuchecks 08/20/18 08/20/18 08/19/18 11:29 04:30 19:34 POC Glucose 113 H 95 128 H 08/19/18 16:58 POC Glucose 132 H Phys Exam - Physical Examination Constitutional: NAD HEENT: PERRLA, sclera anicteric, oral pharynx no lesions Neck: no nodes, no JVD, supple, full ROM Respiratory: no wheezing, no rales, no rhonchi, clear to auscultation bilateral S1, S2 Cardiovascular: RRR, no significant murmur, no rub, gallop RLQ abd wound with packing in place Gastrointestinal: soft, no distention, positive bowel sounds Musculoskeletal: no edema, pulses present Neurological: normal sensation, moves all 4 limbs agitated Psychiatric: A&O x 3 Skin: normal turgor, cap refill <2 seconds Dx/Plan (1) Abdominal wall abscess Code(s): L02.211 - CUTANEOUS ABSCESS OF ABDOMINAL WALL Status: Acute Comment : s/p I&D POD #4, d/c Vancomycin, WCT for local care, plan for home wound care and ? outpt Wound Clinic (2) CKD (chronic kidney disease), stage III Code(s): N18.3 - CHRONIC KIDNEY DISEASE, STAGE 3 (MODERATE) Status: Chronic Comment: Stable, avoid nephrotoxic meds and limit contrast exposure (3) Diabetes mellitus Code(s): E11.9 - TYPE 2 DIABETES MELLITUS WITHOUT COMPLICATIONS Status: Chronic Qualifiers: Diabetes mellitus type: type 2 Diabetes mellitus longterm insulin use: without local company intermodal truck driver use Diabetes mellitus complication status: with kidney complications Chronic kidney disease stage: stage 3 (moderate) Comment: Continue Januvia, Glipizide, serial accuchecks, ISS (4) Hypertension Code(s): I10 - ESSENTIAL (PRIMARY) HYPERTENSION Status: Chronic Qualifiers: Hypertension type: essential hypertension Qualified Code(s): I10 - Essential (primary) hypertension Comment: Resume home BP regimen, serial monitoring (5) Anxiety Code(s): F41.9 - ANXIETY DISORDER, UNSPECIFIED Status: Acute Comment: ? Suicidal ideation, consult [facility] for evaluation and dispo recommendations, continue Xanax 0.25mg po q6h prn - Plan health social work professor, DVT proph w/SCDs Continue sitter 1:1 -: [facility] consult -: WCT for local care -: CM for assistance coordinating wound care after d/c -: Likely d/c in 24-48h * .
[2018-08-20] MEDS: Mirtazapine 15 MG TAB PO SCH (21:01)
[2018-08-21] MEDS: HYDROcodone/Acetaminophen 10/325 mg Tablet PO PRN ×2 (04:16→17:47)
[2018-08-21] MEDS: Mometasone 100 MCG HFA INHALER INH SCH ×2 (06:33→21:25)
[2018-08-21] MEDS: Potassium Chloride 10 MEQ TAB PO SCH (08:36)
[2018-08-21] MEDS: Furosemide 40 MG TAB PO SCH (08:36)
[2018-08-21] MEDS: Rosuvastatin 20 MG TAB PO SCH (08:36)
[2018-08-21] MEDS: Alogliptin 25 MG TAB PO SCH (08:36)
[2018-08-21] MEDS: Lisinopril 2.5 MG TAB PO SCH (08:37)
[2018-08-21] MEDS: metFORMIN 500 MG TAB PO SCH ×2 (08:37→17:43)
[2018-08-21] MEDS: Enoxaparin Sodium 40 MG/0.4 ML SYRINGE SC SCH (08:38)
--- NOTE | 2018-08-21 12:17 | PDOC.PN ---
- Subjective Encounter Start Date: 08/21/18 Encounter Start Time: 12:15 Subjective: f/u for RLQ abd wall abscess s/p I&D with local wound care. [facility] evaluated -: pt and cleared. - Objective Resuscitation Status: Resuscitation Status FULL:Full Resuscitation MAR Reviewed: Yes Vital Signs & Weight: Vital Signs (12 hours) Temp Pulse Resp BP BP Pulse Ox 08/21/18 08:37 72 139/63 08/21/18 08:00 97 08/21/18 07:54 98.3 F 72 20 139/63 97 Weight Admit Weight 194 lb 0.108 oz Weight 194 lb 0.108 oz I&O: 08/20/18 08/21/18 08/22/18 06:59 06:59 06:59 Intake Total 2120 660 240 Balance 2120 660 240 Result Diagrams: 08/18/18 03:55 08/18/18 03:55 Additional Labs: Accuchecks 08/21/18 08/21/18 08/21/18 11:28 04:40 02:56 POC Glucose 97 100 79 08/20/18 08/20/18 08/20/18 23:12 16:20 11:29 POC Glucose 80 179 H 113 H Microbiology 08/16/18 14:17 Abdomen - Right Bacterial Culture - Preliminary 08/16/18 14:17 Abdomen - Right Anaerobic Culture - Preliminary Proteus mirabilis 08/16/18 14:17 Abdomen - Right Bacterial Culture - Preliminary 08/16/18 14:17 Abdomen - Right Anaerobic Culture - Preliminary Proteus mirabilis 08/16/18 14:17 Abdomen - Right Bacterial Culture - Preliminary 08/16/18 14:17 Abdomen - Right Gram Negative Dhaval 08/15/18 22:10 Venous blood - Right Hand Blood Culture - Preliminary Specimen has been received and culture in progress. No Growth to date. 08/15/18 22:10 Venous blood - Right Hand Blood Culture - Preliminary NO GROWTH AT 48 HOURS 08/15/18 22:06 Venous blood - Left Hand Blood Culture - Preliminary Specimen has been received and culture in progress. No Growth to date. 08/15/18 22:06 Venous blood - Left Hand Blood Culture - Preliminary NO GROWTH AT 48 HOURS Laboratory Tests 08/15/18 08/15/18 08/15/18 21:54 21:54 21:54 WBC 11.1 H Creatinine 1.18 H Lactic Acid 1.2 Phys Exam - Physical Examination Constitutional: NAD HEENT: PERRLA, sclera anicteric, oral pharynx no lesions Neck: no nodes, no JVD, supple, full ROM Respiratory: no wheezing, no rales, no rhonchi, clear to auscultation bilateral S1, S2 Cardiovascular: RRR, no significant murmur, no rub, gallop surgical wound with packing in place Gastrointestinal: soft, no distention, positive bowel sounds Musculoskeletal: no edema, pulses present Neurological: normal sensation, moves all 4 limbs Psychiatric: normal affect, A&O x 3 Skin: normal turgor, cap refill <2 seconds Dx/Plan (1) Abdominal wall abscess Code(s): L02.211 - CUTANEOUS ABSCESS OF ABDOMINAL WALL Status: Acute Comment : s/p I&D POD #5, d/c Vancomycin, WCT for local care, plan for home wound care and ? outpt Wound Clinic (2) CKD (chronic kidney disease), stage III Code(s): N18.3 - CHRONIC KIDNEY DISEASE, STAGE 3 (MODERATE) Status: Chronic Comment: Stable, avoid nephrotoxic meds and limit contrast exposure (3) Diabetes mellitus Code(s): E11.9 - TYPE 2 DIABETES MELLITUS WITHOUT COMPLICATIONS Status: Chronic Qualifiers: Diabetes mellitus type: type 2 Diabetes mellitus moth exterminator insulin use: without fdc use Diabetes mellitus complication status: with kidney complications Chronic kidney disease stage: stage 3 (moderate) Comment: Continue Januvia, Glipizide, serial accuchecks, ISS (4) Hypertension Code(s): I10 - ESSENTIAL (PRIMARY) HYPERTENSION Status: Chronic Qualifiers: Hypertension type: essential hypertension Qualified Code(s): I10 - Essential (primary) hypertension Comment: Resume home BP regimen, serial monitoring (5) Anxiety Code(s): F41.9 - ANXIETY DISORDER, UNSPECIFIED Status: Acute Comment: ? Suicidal ideation, consult [facility] for evaluation and dispo recommendations, continue Xanax 0.25mg po q6h prn - Plan PT/OT, social media marketing specialist, out of bed/ambulate Stable overall -: [facility] cleared pt 08/20/18 -: WCT for local care -: CM assisting with coordination for wound care outpt -: OOB/ambulate with PT * .
[2018-08-21] MEDS: Mirtazapine 15 MG TAB PO SCH (20:35)
[2018-08-22] MEDS: HYDROcodone/Acetaminophen 10/325 mg Tablet PO PRN ×2 (06:17→20:23)
[2018-08-22] MEDS: Mometasone 100 MCG HFA INHALER INH SCH ×2 (07:13→18:18)
[2018-08-22] MEDS: metFORMIN 500 MG TAB PO SCH ×2 (08:26→17:01)
[2018-08-22] MEDS: Lisinopril 2.5 MG TAB PO SCH (08:26)
[2018-08-22] MEDS: Rosuvastatin 20 MG TAB PO SCH (08:26)
[2018-08-22] MEDS: Alogliptin 25 MG TAB PO SCH (08:27)
[2018-08-22] MEDS: Enoxaparin Sodium 40 MG/0.4 ML SYRINGE SC SCH (08:27)
[2018-08-22] MEDS: Potassium Chloride 10 MEQ TAB PO SCH (08:27)
[2018-08-22] MEDS: Furosemide 40 MG TAB PO SCH (08:27)
--- NOTE | 2018-08-22 15:28 | PDOC.PN ---
- Subjective Encounter Start Date: 08/22/18 Encounter Start Time: 15:25 Subjective: f/u for RLQ abd wall abscess s/p I&D with local care and dressing changes. -: Plan for returning home with self-changing of wound dressings. - Objective Resuscitation Status: Resuscitation Status FULL:Full Resuscitation MAR Reviewed: Yes Vital Signs & Weight: Vital Signs (12 hours) Temp Pulse Resp BP Pulse Ox 08/22/18 08:49 98.3 F 71 18 127/61 96 08/22/18 08:26 72 08/22/18 07:13 72 18 99 Weight Admit Weight 194 lb 0.108 oz Weight 194 lb 0.108 oz I&O: 08/21/18 08/22/18 08/23/18 06:59 06:59 06:59 Intake Total 660 690 480 Balance 660 690 480 Result Diagrams: 08/18/18 03:55 08/18/18 03:55 Additional Labs: Accuchecks 08/22/18 08/22/18 08/21/18 11:57 04:22 19:43 POC Glucose 95 101 80 08/21/18 17:02 POC Glucose 129 H Phys Exam - Physical Examination Constitutional: NAD HEENT: PERRLA, sclera anicteric, oral pharynx no lesions Neck: no nodes, no JVD, supple, full ROM Respiratory: no wheezing, no rales, no rhonchi, clear to auscultation bilateral S1, S2 Cardiovascular: RRR, no significant murmur, no rub, gallop RLQ abd wound with dressings in place Gastrointestinal: soft, non-tender, no distention, positive bowel sounds R foot/ankle cast in place Musculoskeletal: no edema, pulses present Neurological: normal sensation, moves all 4 limbs Psychiatric: normal affect, A&O x 3 Skin: normal turgor, cap refill <2 seconds Dx/Plan (1) Abdominal wall abscess Code(s): L02.211 - CUTANEOUS ABSCESS OF ABDOMINAL WALL Status: Acute Comment : s/p I&D POD #6, d/c Vancomycin, WCT for local care, plan for home wound care and ? outpt Wound Clinic (2) CKD (chronic kidney disease), stage III Code(s): N18.3 - CHRONIC KIDNEY DISEASE, STAGE 3 (MODERATE) Status: Chronic Comment: Stable, avoid nephrotoxic meds and limit contrast exposure (3) Diabetes mellitus Code(s): E11.9 - TYPE 2 DIABETES MELLITUS WITHOUT COMPLICATIONS Status: Chronic Qualifiers: Diabetes mellitus type: type 2 Diabetes mellitus terminal operator insulin use: without terminal operator use Diabetes mellitus complication status: with kidney complications Chronic kidney disease stage: stage 3 (moderate) Comment: Continue Januvia, Glipizide, serial accuchecks, ISS, stable currently (4) Hypertension Code(s): I10 - ESSENTIAL (PRIMARY) HYPERTENSION Status: Chronic Qualifiers: Hypertension type: essential hypertension Qualified Code(s): I10 - Essential (primary) hypertension Comment: Resume home BP regimen, serial monitoring (5) Anxiety Code(s): F41.9 - ANXIETY DISORDER, UNSPECIFIED Status: Acute Comment: Continue Xanax 0.25mg po q6h prn - Plan 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
[2018-08-22 19:42] VITALS: BP 140/83; TEMP 98.6
[2018-08-22] MEDS: Mirtazapine 15 MG TAB PO SCH (20:22)
[2018-08-23] MEDS: HYDROcodone/Acetaminophen 10/325 mg Tablet PO PRN (05:25)
[2018-08-23] MEDS: Mometasone 100 MCG HFA INHALER INH SCH (06:51)
[2018-08-23] MEDS: Lisinopril 2.5 MG TAB PO SCH (07:54)
[2018-08-23] MEDS: Potassium Chloride 10 MEQ TAB PO SCH (07:54)
[2018-08-23] MEDS: Rosuvastatin 20 MG TAB PO SCH (07:54)
[2018-08-23] MEDS: Furosemide 40 MG TAB PO SCH (07:55)
[2018-08-23] MEDS: Alogliptin 25 MG TAB PO SCH (07:55)
[2018-08-23] MEDS: metFORMIN 500 MG TAB PO SCH (07:55)
--- NOTE | 2018-08-23 13:52 | DIS ---
DATE OF ADMISSION: 08/15/2018 DATE OF DISCHARGE: 08/23/2018 DISCHARGE DIAGNOSES: 1. Right lower quadrant abdominal wall abscess status post incision and drainage, 08/16/2018. 2. Chronic kidney disease stage 3. 3. Diabetes mellitus type 2, on oral hypoglycemics. 4. Hypertension, stable. 5. Anxiety disorder. 6. Chronic wound to the right lower extremity. CONSULTATIONS: Dr. Palencia with General Surgery Service. PERTINENT LAB AND X-RAY FINDINGS: Creatinine ranged between 1.02-1.28, estimated GFR ranged between 43-56, lactic acid level of 1.2. LFTs within normal limits. CBC showed a white blood cell count ran ged between 5.8-11.1, hemoglobin ranged between 9.7-11.4. Blood cultures x2 dated 08/15/2018 showed no growth at 5 days. Abdominal wound culture dated 08/16/2018 showed Proteus mirabilis resistant to quinolones. HOSPITAL COURSE: The patient was admitted to the medical floor after presenting with abscess to the right lower quadrant abdominal wall, previously treated with oral clindamycin. The patient was noted with increasing swelling, edema and tenderness to the right lower quadrant with abdominal wall cellu litis and abscess. The patient was evaluated by the General Surgery Service undergoing primary incis ion and drainage with debridement of the right lower quadrant abdominal wall on 08/16/2018. A 3 x 3 x 3 cm abscess cavity was excised and the patient was given local wound packing. The patient was kristal luated by Wound Care Service with wet to dry dressing changes throughout the hospital course. The pa tient did not require wound VAC application and received dressing changes as stated previously. The patient did receive IV vancomycin through the initial hospitalization; however, this was discontinued after Proteus species were noted on wound culture. However, after incision and drainage and surgica l debridement, all antibiotics were discontinued. The patient continued to clinically improve throug hout the hospital course, remaining afebrile. Due to difficulty with obtaining home health services and insurance coverage, the patient was deemed appropriate for discharge home to continue local wound care with self administration of dressing changes as well as outpatient visits to the Wound Care [facility] at [facility]. I have examined the patient at the time of discharge and discussed [facility] instructions. The patient verbalized understanding and agreement and ready for discharge on 07/30. DISCHARGE MEDICATIONS: 1. ProAir HFA 2 puffs inhaled q.i.d. p.r.n. 2. Qvar 1 puff inhaled b.i.d. 3. Vitamin D3, 2000 units p.o. at bedtime. 4. Nexium 20 mg p.o. daily. 5. Flonase 1 spray in each naris daily. 6. Lasix 40 mg p.o. daily. 7. Glipizide 5 mg p.o. b.i.d. 8. Motrin 600 mg p.o. q.6 hours p.r.n. 9. Melatonin 60 mg p.o. at bedtime. 10. Metformin 1000 mg p.o. b.i.d. 11. Remeron 15 mg p.o. at bedtime. 12. Klor-Con 10 mEq p.o. daily. 13. Crestor 40 mg p.o. daily. 14. Sertraline 250 mg p.o. at bedtime. 15. Januvia 100 mg p.o. daily. 16. Imitrex 100 mg p.o. p.r.n. migraine headaches. 17. Lonsdale 5/325 mg 1 tab p.o. q.4 hours p.r.n. pain. 18. Zestril 2.5 mg p.o. daily. 19. Tramadol 50 mg 1-2 tabs p.o. q.6 hours p.r.n. pain. FOLLOWUP: The patient will follow up with Dr. Sigrid Arango at [place], [place]. T he patient will follow up with the outpatient Wound Care Clinic on 08/24/2018 at 3:30 p.m. CONDITION ON DISCHARGE: Stable. ACTIVITY: Ad mónica. DIET: ADA and heart healthy. SPECIAL INSTRUCTIONS: Wet to dry wound dressing changes q.48 hours. CODE STATUS: Full. DISPOSITION: Home, 08/23/2018. Total time preparing and coordinating discharge, 37 minutes.
== END 2018-08-23 14:43 | disposition home or self-care (01) | DRG 571 ==
LOC: ERS 20:31 → T4-B 22:10
PROVIDERS: ADMIT Internal Medicine; ATTEND Internal Medicine
PROC: 0JB80ZZ Excision of Abdomen Subcutaneous Tissue and Fascia, Open Approach (ICD-10-PCS; principal; 2018-08-16)
PROC: 0W9F0ZX Drainage of Abdominal Wall, Open Approach, Diagnostic (ICD-10-PCS; 2018-08-16)
DX: L02.211 Cutaneous abscess of abdominal wall (principal); L76.31 Postprocedural hematoma of skin and subcutaneous tissue following a dermatologic procedure; T81.4XXA Infection following a procedure, initial encounter; I12.9 Hypertensive chronic kidney disease with stage 1 through stage 4 chronic kidney disease, or unspecified chronic kidney disease; E11.22 Type 2 diabetes mellitus with diabetic chronic kidney disease; N18.3 Chronic kidney disease, stage 3 (moderate); F41.9 Anxiety disorder, unspecified; E78.5 Hyperlipidemia, unspecified; J45.909 Unspecified asthma, uncomplicated; M32.9 Systemic lupus erythematosus, unspecified; M06.9 Rheumatoid arthritis, unspecified; E66.01 Morbid (severe) obesity due to excess calories; Z68.36 Body mass index [BMI] 36.0-36.9, adult; G47.30 Sleep apnea, unspecified; K90.0 Celiac disease; J34.2 Deviated nasal septum; L40.50 Arthropathic psoriasis, unspecified; K21.9 Gastro-esophageal reflux disease without esophagitis; Z85.41 Personal history of malignant neoplasm of cervix uteri; Z89.421 Acquired absence of other right toe(s); F32.9 Major depressive disorder, single episode, unspecified; Z87.891 Personal history of nicotine dependence; L03.311 Cellulitis of abdominal wall; E11.42 Type 2 diabetes mellitus with diabetic polyneuropathy; M79.7 Fibromyalgia; G43.909 Migraine, unspecified, not intractable, without status migrainosus; G25.81 Restless legs syndrome; G56.00 Carpal tunnel syndrome, unspecified upper limb
CPT/HCPCS: 36415; 36416; 80048; 80053; 80202; 80307; 83605; 85007; 85025; 85027; 87040; 87070; 87077; 87186; 87205; 96365; 96375; A4216; G8981-GP-CJ; G8982-GP-CH; G8987-GO-CI; G8988-GO-CI; G8989-GO-CI; J0131; J0153; J1650; J1885; J2001; J2270; J2405; J2704; J3010; J3370; J7050; S0028

== ENCOUNTER 2018-08-28 10:11 | Outpatient (CLI) | payer SELFPAY ==
[2018-08-28] MEDS ORDERED: Sodium Chloride 0.9% 15 ML NEB ONE (10:22)
--- NOTE | 2018-08-28 12:08 | PRG ---
DATE OF SERVICE: 08/28/2018 HISTORY: Ms. Tony Avery is a very pleasant 53-year-old last seen in the Wound Center for a wound of the right lateral foot. The patient now presents to the Wound Center for evaluation of a wound of t he right abdominal wall subsequent to incision, drainage and debridement. The patient underwent the preceding procedure on 08/16/[address] Brody Palencia for an abscess of the right abdominal wall. The patient states she has been performing wet to dry dressing changes for her abdominal wound. Ms. Derek flynn has no other complaints today. She denies any fever or chills. PHYSICAL EXAMINATION: VITAL SIGNS: Temperature 98.5, pulse 109, respirations 18, blood pressure 140/88. Accu-Chek 154. ABDOMEN: The wound of the right abdominal wall subsequent to incision, drainage and debridement marimar ures approximately 9.0 x 4.5 cm. The depth of the wound is approximately 3.2 cm. The wound is granu lating. No purulent drainage is associated with the wound. No erythema of the skin surrounding the wound is present. No maceration of the skin of the periwound is noted. ASSESSMENT AND PLAN: 1. Wound of right abdominal wall as described above. Wet to dry dressing changes will be continued on a daily basis after cleansing and irrigation. The patient states she is performing her own dressi ng changes. No antibiotics will be prescribed today based upon the appearance of the wound. I will see Ms. Avery again in two weeks or alternatively after she has been seen by Dr. Palencia. 2. Diabetes mellitus. The patient's Accu-Chek in clinic today is 154. The patient has been told th at for optimal wound healing, her blood glucoses should remain below 150. 3. Hypertension. 4. Glaucoma. 5. Fibromyalgia. 6. Asthma/chronic obstructive pulmonary disease. 7. Obstructive sleep apnea. 8. History of seizure disorder. 9. Gastroesophageal reflux disease. 10. Migraine headaches. 11. Rheumatoid arthritis/psoriatic arthritis. 12. Lupus. 13. Celiac disease. 14. Osteoarthritis.
== END 2018-08-28 10:12 | disposition home or self-care (01) ==
LOC: WCC 10:11
PROVIDERS: ATTEND Family Medicine
DX: T81.89XD Other complications of procedures, not elsewhere classified, subsequent encounter (principal); E11.9 Type 2 diabetes mellitus without complications; I10 Essential (primary) hypertension; M79.7 Fibromyalgia; J44.9 Chronic obstructive pulmonary disease, unspecified; H40.9 Unspecified glaucoma; G47.33 Obstructive sleep apnea (adult) (pediatric); K21.9 Gastro-esophageal reflux disease without esophagitis; M19.90 Unspecified osteoarthritis, unspecified site; M32.9 Systemic lupus erythematosus, unspecified; K90.0 Celiac disease; Z86.69 Personal history of other diseases of the nervous system and sense organs
CPT/HCPCS: 36416; 97602; A4218

== ENCOUNTER 2018-09-13 16:02 | Outpatient (CLI) | payer SELFPAY ==
[~2018-09-13 16:02] MED LIST changes: -Heparin 1,000 UNITS/ML VIAL ONE; +Sodium Chloride 0.9% 15 ML NEB ONE
--- NOTE | 2018-09-13 18:13 | PRG ---
DATE OF SERVICE: 09/13/2018 HISTORY: Ms. Tony Avery is a very pleasant 53-year-old who presents to the Wound Center for evaluat ion of a wound of the right abdominal wall subsequent to incision, drainage and debridement. The pat ient underwent the preceding procedure on 08/16/[address] Brody Palencia for an abscess of the right ab dominal wall. The patient continues to perform wet to dry dressing changes for her abdominal wound a s per Dr. Palencia. The patient has no other complaints today. She denies any fever or chills. PHYSICAL EXAMINATION: VITAL SIGNS: Temperature 97.7, pulse 104, respirations 19, blood pressure 129/59. Accu-Chek 147. ABDOMEN: A wound of the right abdominal wall subsequent to incision, drainage and debridement is pre sent, which measures approximately 6.7 x 2.0 cm. The dimensions of the wound at the time of the ventura ent's visit on 08/28/2018 were approximately 9.0 x 4.5 cm. The wound is granulating. No purulent dr ramirez is associated with the wound. No erythema of the skin surrounding the wound is present. No m aceration of the skin of the periwound is noted. ASSESSMENT AND PLAN: 1. Wound of right abdominal wall as described above. Wet to dry dressing changes will be continued on a daily basis after cleansing and irrigation. The patient has been performing her own dressing ch anges. I will see Ms. Avery again in 2 weeks or alternatively 2 weeks after she has been seen by Dr. Palencia. 2. Diabetes mellitus. The patient's Accu-Chek in clinic today is 147. The patient has been reminde d that for optimal wound healing, her blood glucoses should remain below 150. 3. Hypertension. 4. Glaucoma. 5. Fibromyalgia. 6. Asthma/chronic obstructive pulmonary disease. 7. Obstructive sleep apnea. 8. History of seizure disorder. 9. Gastroesophageal reflux disease. 10. Migraine headaches. 11. Rheumatoid arthritis/psoriatic arthritis. 12. Lupus. 13. Celiac disease. 14. Osteoarthritis.
== END 2018-09-13 16:03 | disposition home or self-care (01) ==
LOC: WCC 16:02
PROVIDERS: ATTEND Family Medicine
DX: S31.109D Unspecified open wound of abdominal wall, unspecified quadrant without penetration into peritoneal cavity, subsequent encounter (principal); E11.9 Type 2 diabetes mellitus without complications; I10 Essential (primary) hypertension; H40.9 Unspecified glaucoma; M79.7 Fibromyalgia; J44.1 Chronic obstructive pulmonary disease with (acute) exacerbation; G47.33 Obstructive sleep apnea (adult) (pediatric); K21.9 Gastro-esophageal reflux disease without esophagitis; G43.909 Migraine, unspecified, not intractable, without status migrainosus; M06.9 Rheumatoid arthritis, unspecified; L40.50 Arthropathic psoriasis, unspecified; M19.90 Unspecified osteoarthritis, unspecified site; K90.0 Celiac disease; Z86.69 Personal history of other diseases of the nervous system and sense organs
CPT/HCPCS: 97602; A4218

== ENCOUNTER 2018-09-27 15:45 | Outpatient (CLI) | payer SELFPAY ==
--- NOTE | 2018-09-27 16:40 | PRG ---
DATE OF SERVICE: 09/27/2018 HISTORY: Ms. Tony Avery is a very pleasant 53-year-old, who presents to the Wound Center for evalua tion of a wound of the right abdominal wall, subsequent to incision, drainage, and debridement. The patient underwent the preceding procedure on 08/16/[address] Brody Palencia for an abscess of the right abdominal wall. The patient continues to perform wet-to-dry dressing changes for her abdominal woun d as per Dr. Palencia. Ms. Avery has no other complaints today. She denies any fever or chills. PHYSICAL EXAMINATION: VITAL SIGNS: Temperature 98.6, pulse 86, respirations 16, blood pressure 149/72. Accu-Chek 167. ABDOMEN: A wound of the right anterior abdominal wall subsequent to incision, drainage, and debridem ent is present, which measures approximately 5.2 x 1.1 cm. The dimensions of the wound at the time o f the patient's visit on 09/13/2018 were approximately 6.7 x 2.0 cm. The wound is granulating. No p urulent drainage is associated with the wound. No erythema of the skin surrounding the wound is pres ent. No maceration of the skin of the periwound is noted. ASSESSMENT AND PLAN: 1. Wound of right anterior abdominal wall as described above. Wet-to-dry dressing changes will be c ontinued on a daily basis after cleansing and irrigation. The patient will continue to perform her o wn dressing changes. I will see Ms. Avery again in 3 weeks if her wound is still present at this rosie e. The patient states she has a followup appointment with Dr. Palencia in 2 weeks. 2. Diabetes mellitus. The patient's Accu-Chek in clinic today is 167. The patient has been reminde d that, for optimal wound healing, her blood glucoses should remain below 150. 3. Hypertension. 4. Glaucoma. 5. Fibromyalgia. 6. Asthma/chronic obstructive pulmonary disease. 7. Obstructive sleep apnea. 8. History of seizure disorder. 9. Gastroesophageal reflux disease. 10. Migraine headaches. 11. Rheumatoid arthritis/psoriatic arthritis. 12. Lupus. 13. Celiac disease. 14. Osteoarthritis.
== END 2018-09-27 15:46 | disposition home or self-care (01) ==
LOC: WCC 15:45
PROVIDERS: ATTEND Family Medicine
DX: S31.109A Unspecified open wound of abdominal wall, unspecified quadrant without penetration into peritoneal cavity, initial encounter (principal); E11.9 Type 2 diabetes mellitus without complications; I10 Essential (primary) hypertension; H40.9 Unspecified glaucoma; M79.7 Fibromyalgia; J44.9 Chronic obstructive pulmonary disease, unspecified; G47.33 Obstructive sleep apnea (adult) (pediatric); K21.9 Gastro-esophageal reflux disease without esophagitis; G43.909 Migraine, unspecified, not intractable, without status migrainosus; M32.9 Systemic lupus erythematosus, unspecified; K90.0 Celiac disease; M19.90 Unspecified osteoarthritis, unspecified site
CPT/HCPCS: 97602; A4218

== ENCOUNTER 2019-01-28 02:45 | Observation (INO) | payer OTHER, SELFPAY ==
[2019-01-28 03:51] LABS: #Eosinphils 0.2 thou/uL (0.0-0.7); #Lymphocytes 2.8 thou/uL (1.20-3.40); #Monocytes 0.7 thou/uL (0.11-0.59); #Neutrophils 5.6 thou/uL (1.40-6.50); %Basophils 0.3 % (0.0-1.0); %Eosinophils 2.6 % (0.0-10.0); %Monocytes 7.3 % (0.0-10.0); %Neutrophils 59.8 % (42.0-75.0); Hemoglobin 12.8 g/dL (12.0-16.0); Mean Corpuscular HGB CONC 33.9 g/dL (32.0-36.0); Mean Corpuscular Volume 82.6 fL (78.0-98.0); Mean Platelet Volume 8.8 fL (7.4-10.4); Platelet Count 135 thou/uL (130-400); RBC Distribution Width 12.4 % (11.5-14.5); Red Blood Cell (RBC) Count 4.58 mill/uL (4.20-5.40); White Blood Cell (WBC) Count 9.3 thou/uL (4.8-10.8)
[2019-01-28 03:52] LABS: ALT (SGPT) 25 U/L (8-55); AST (SGOT) 28 U/L (5-34); Alkaline Phosphatase 120 U/L (40-150); Anion Gap 17 mmol/L (10-20); BUN (Urea Nitrogen) 27 mg/dL (9.8-20.1); Bilirubin, Total 0.3 mg/dL (0.2-1.2); Calc. Creatinine Clearance 0 mL/min (70-130); Calcium 10.6 mg/dL (7.8-10.44); Carbon Dioxide 22 mmol/L (22-29); Chloride 106 mmol/L (98-107); Estimated GFR-MDRD 31; Glucose 142 mg/dL (70-105); Potassium 4.7 mmol/L (3.5-5.1); Sodium 140 mmol/L (136-145)
[2019-01-28 04:14] LABS: CKMB 3.1 ng/mL (0-6.6)
[2019-01-28] MEDS ORDERED: Nitroglycerin 0.4 MG TAB 1 EACH ONE (05:25)
[2019-01-28] MEDS ORDERED: Acetaminophen 325 MG TAB ONE (06:24)
[2019-01-28] MEDS ORDERED: Nitroglycerin 0.4 MG TAB (25 Tab Bottle) PO PRN (08:22)
--- NOTE | 2019-01-28 08:32 | RAD ---
CHEST 1 VIEW: Date: 01/28/19 INDICATION: History of chest pain. COMPARISON: Prior exam dated 06/27/18. FINDINGS: Heart size is upper limits of normal. No consolidation, pleural effusion, or pneumothorax is evident. No acute osseous abnormality is noted. IMPRESSION: No acute cardiopulmonary abnormality. POS: BH
[2019-01-28 08:57] LABS: CKMB 2.9 ng/mL (0-6.6)
[2019-01-28] MEDS ORDERED: Sodium Chloride 0.9% 1,000 ML IV SCH (09:00)
[2019-01-28] MEDS ORDERED: Aspirin 325 mg Enteric Coated Tablet PO SCH (09:00)
[2019-01-28] MEDS ORDERED: diphenhydrAMINE 25 MG CAP PO PRN (11:31)
[2019-01-28] MEDS ORDERED: Ondansetron ODT 8 MG TAB PO PRN (11:31)
[2019-01-28] MEDS ORDERED: Dextrose 5% in Water 1,000 ML IV PRN (11:34)
[2019-01-28] MEDS ORDERED: Dextrose 50% Abboject 50 ML SYRINGE SLOW IVP PRN (11:34)
[2019-01-28] MEDS ORDERED: HumaLOG 300 UNITS/3 ML VIAL SC PRN (11:34)
[2019-01-28] MEDS ORDERED: Amlodipine 5 MG TAB PO SCH (13:00)
[2019-01-28] MEDS ORDERED: cloNIDine 0.1 MG TAB PO PRN (13:37)
[2019-01-28 13:38] LABS: Bilirubin Negative (Negative); Blood, Urine Moderate (Negative); Clarity CLEAR (Clear); Glucose, Urine (Dipstick) Negative (Negative); Leukocyte Small (Negative); Nitrite Negative (Negative); Protein, Urine (Dipstick) 100 mg/dL (Neg-Trace); Specific Gravity, Urine 1.017 (1.002-1.036); Urobilinogen 0.2 mg/dL (0.2-1.0)
[2019-01-28 13:40] LABS: Bacteria/HPF None Seen HPF (None Seen); Hyaline Casts/LPF 0-3 HYALINE CAST LPF (0-3 Hyaline); Pathc Cast-AUWi Flag 0.87 (0-2.49); Squamous Epithelial 0-3 HPF (0-3)
[2019-01-28 13:45] LABS: Urine Culture Reflex Yes Yes
--- NOTE | 2019-01-28 15:54 | HP ---
CHIEF COMPLAINT: Chest pressure, high blood pressure. HISTORY OF PRESENT ILLNESS: The patient is a 53-year-old female with past medical history significant for asthma, hyperlipidemia, hypertension, type 2 diabetes mellitus, asthma, celiac disease, fibromyalgia, rheumatoid and psoriatic arthritis, lupus, GERD, and migraines, who presented to the hospital with complaints of chest pressure that began last night when she was getting ready for bed. The patient felt generally unwell, and decided to take her blood pressure; she got a reading of systolic 220. She did notice some accompanying chest pressure that was in the center of her chest. This was nonradiating. Associated symptoms included shortness of breath , but she denies any dizziness, palpitations, nausea, or diaphoresis. She called EMS. When EMS arrived, they gave her sublingual nitroglycerin spray, which did help to relieve some of her symptoms. On arrival to the ER, the patient's initial blood pressure was 208/112, pulse was 84. She was given a second dose of sublingual nitroglycerin, which also helped to relieve her pain and her blood pressure trended down to the systolic 160s. Her EKG showed normal sinus rhythm. No ischemic ST or T-wave changes. Her serial troponin was 0.035 and 0.054 respectively. Her creatinine was elevated above baseline at 1.7. She is currently resting comfortably in the ER in no acute distress. She tells me that she has not taken her lisinopril for over two weeks. It has been waiting at the pharmacy along with a prescription of antibiotics; she says that she had been diagnosed with UTI recently. ALLERGIES: NO KNOWN DRUG ALLERGIES. REVIEW OF SYSTEMS: The patient states she has had some dysuria, and was diagnosed with the UTI two weeks ago. She has not been able to hand picker her antibiotics secondary to lack of money. Otherwise, a 12- point review of systems performed and is negative except that stated above. She denies any shortness of breath, cough , wheezing, chills, fever, or recent illness. HOME MEDICATIONS: 1. Albuterol sulfate inhaler 1 puff inhalation p.r.n. 2. Aspirin 81 mg daily. 3. Beclomethasone 40 mcg puff one puff inhalation b.i.d. p.r.n. 4. Vitamin D3 supplement 1000 unit capsule two capsules p.o. at bedtime. 5. Diphenhydramine 15 mg p.o. q.6 hours p.r.n. 6. Esomeprazole 20 mg capsule one p.o. daily. 7. Ferrous sulfate 325 mg one p.o. at bedtime. 8. Fluticasone propionate one spray each nares b.i.d. 9. Glipizide 5 mg p.o. b.i.d. 10. Hydroxyzine 25 mg p.o. t.i.d. 11. Lisinopril 2.5 mg p.o. daily. 12. Mirtazapine 30 mg p.o. at bedtime. 13. Zofran ODT 8 mg p.o. q.6 hours p.r.n. 14. Rosuvastatin 40 mg p.o. at bedtime. 15. Sertraline 250 mg p.o. at bedtime. PAST MEDICAL HISTORY: Hyperlipidemia, hypertriglyceridemia, obstructive sleep apnea, asthma, celiac disease, fibromyalgia, type 2 diabetes mellitus, hypertension, rheumatoid arthritis, psoriatic arthritis, lupus, GERD, glaucoma, neuropathy, migraine, history of cervical cancer in 1986, restless legs syndrome, carpal tunnel syndrome, cataracts, asthma. PAST SURGICAL HISTORY: Hysterectomy, tonsillectomy, deviated septum correction, cholecystectomy, tubal ligation, cyst removal from the left breast, exploratory abdominal surgery, amputation of the right fifth toe, right ankle surgery, abscess located on her abdomen was surgically washed out in July 2018. PSYCHIATRIC HISTORY: Anxiety and depression. SOCIAL HISTORY: The patient is a former smoker, quit about 10 years ago. She occasionally drinks alcohol. Denies any illicit drug use. She lives in [place] and receives her healthcare at [facility]. She does have a daughter, who lives nearby. ALLERGIES: AMOXICILLIN, AMPICILLIN, BACTRIM, CEFTIN, CODEINE, CYMBALTA, GABAPENTIN, HYDRALAZINE, LIPITOR, LYRICA, PENICILLIN, SULFA. PHYSICAL EXAMINATION: VITAL SIGNS: Current blood pressure 161/64, pulse is 82, respirations 22, O2 saturation 95% on room air. CONSTITUTIONAL: The patient is awake, alert, and nontoxic appearing. She is in no acute distress. HEENT: Head and face, normocephalic and atraumatic. Eyes, extraocular movements intact. Normal conjunctivae. ENT, nares patent. No nasal discharge. Mucous membranes are moist. NECK: No JVD. No lymphadenopathy. RESPIRATORY: Regular respiratory rate and pattern, clear to auscultation bilaterally. No wheeze or rhonchi. CV: S1 and S2, regular rate and rhythm, no appreciable murmurs, rubs, or gallops. ABDOMEN: Soft and nontender. Positive bowel sounds. Obese. The patient does have a what appears to be a healing ulcer on her abdomen, there is no purulent discharge. There is mild erythema. NEUROLOGIC: Oriented to person, place, and time x3. EXTREMITIES: No edema. Positive pulses bilaterally. LABORATORY DATA: White blood cell count 9.3, hemoglobin 12.8, hematocrit 37.8. Chemistry; potassium is 4.7, chloride 106, sodium 140, BUN 27, creatinine 1.7, glucose 142. Troponin 0.035, 0.054. DIAGNOSTIC DATA: Chest x-ray shows no acute cardiopulmonary process. ASSESSMENT: 1. Chest pressure in the setting of hypertensive urgency, possibly demand ischemia, in a patient with multiple risk factors including diabetes, hypertension, and hyperlipidemia. Heart score =4 2. Accelerated hypertension. 3. Type 2 diabetes mellitus. 4. Hyperlipidemia. 5. Asthma. 6. Celiac disease. 7. Rheumatoid arthritis. 8. Lupus. 9. Gastroesophageal reflux disease. 10. Noncompliance. 11. Acute on chronic renal insufficiency, creatinine currently 1.7, baseline appears to be 1.2 to 1.3 per review of records. 12. Non compliance PLAN: The patient has been out of her lisinopril for greater than two weeks. We will hold her lisinopril for now given her acute renal insufficiency, and start Procardia. Continue serial cardiac enzymes. Given the patient's numerous risk factors, she will need a stress test to rule out reversible ischemia. We will also perform a UA and treat UTI accordingly. Gentle hydration for now, and will repeat BMP in the morning. Continue p.r.n. nitrates. Further recommendations based on hospital course. Care discussed with Dr. Corona Job ID: [id number] [facility]
[2019-01-28] MEDS: hydrOXYzine Pamoate 25 mg Capsule PO SCH ×2 (16:05→20:39)
[2019-01-28] MEDS: Sodium Chloride 0.9% 1,000 ML IV SCH ×2 (16:05→23:23)
[2019-01-28] MEDS: NIFEdipine 10 MG CAP PO SCH ×2 (16:07→20:39)
[2019-01-28] MEDS: Ferrous Sulfate 325 MG TAB PO SCH (20:38)
[2019-01-28] MEDS: Mirtazapine 30 MG TAB PO SCH (20:39)
[2019-01-28] MEDS: Rosuvastatin 10 MG TAB PO SCH (20:39)
[2019-01-28] MEDS: Acetaminophen 325 MG TAB PO PRN (20:41)
[2019-01-28] MEDS ORDERED: traMADol HCl 50 MG TAB PO SCH (21:15)
[2019-01-29 06:04] LABS: Anion Gap 15 mmol/L (10-20); BUN (Urea Nitrogen) 26 mg/dL (9.8-20.1); Calc. Creatinine Clearance 61 mL/min (70-130); Calcium 9.3 mg/dL (7.8-10.44); Carbon Dioxide 19 mmol/L (22-29); Cardiac Risk 6.3 (Less than 4.5); Chloride 108 mmol/L (98-107); Cholesterol 279 mg/dl (< 200 Desired); Estimated GFR-MDRD 33; Glucose 168 mg/dL (70-105); HDL Cholesterol 44 mg/dL (>60 Neg Risk); LDL Cholesterol, Calculated 175 mg/dL; Potassium 4.6 mmol/L (3.5-5.1); Sodium 137 mmol/L (136-145); Triglycerides 300 mg/dL (Less than 150)
[2019-01-29] MEDS ORDERED: Amlodipine 5 MG TAB PO SCH (09:00)
[2019-01-29] MEDS ORDERED: Regadenoson 0.4 MG/5 ML SYRINGE ONE (10:21)
[2019-01-29] MEDS: hydrOXYzine Pamoate 25 mg Capsule PO SCH ×3 (11:06→20:30)
[2019-01-29] MEDS: Aspirin 81 mg Enteric Coated Tablet PO SCH (11:06)
[2019-01-29] MEDS: NIFEdipine 10 MG CAP PO SCH ×3 (11:06→20:30)
[2019-01-29] MEDS: traMADol HCl 50 MG TAB PO PRN ×2 (13:49→20:29)
--- NOTE | 2019-01-29 16:53 | PDOC.PN ---
- Subjective Encounter Start Date: 01/29/19 Encounter Start Time: 16:52 Patient sitting up in bed, she denies any events over night. She reports chest pain improved. Denies palpitations, shortness of breath or abdominal pain. She does admit to healing wound right side of abdomen she would continue wound care at home. She underwent first half of stress test today, await second part in the am. - Objective MAR Reviewed: Yes Vital Signs & Weight: Vital Signs (12 hours) Temp Pulse Resp BP Pulse Ox 01/29/19 14:58 99.0 F 88 20 140/63 96 01/29/19 11:07 98.6 F 82 20 138/60 96 01/29/19 07:15 98.3 F 72 20 155/75 H 96 Weight Weight 217 lb 4.8 oz I&O: 01/28/19 01/29/19 01/30/19 06:59 06:59 06:59 Intake Total 2058 Output Total 1950 Balance 108 Result Diagrams: 01/28/19 03:24 01/29/19 04:59 Additional Labs: Accuchecks 01/29/19 01/29/19 01/28/19 11:11 04:59 20:38 POC Glucose 275 H 167 H 231 H 01/28/19 16:39 POC Glucose 173 H Radiology Reviewed by me: Yes Phys Exam - Physical Examination Constitutional: NAD HEENT: PERRLA, moist MMs, oral pharynx no lesions Neck: no nodes, no JVD Respiratory: no wheezing, clear to auscultation bilateral Cardiovascular: RRR, no significant murmur Gastrointestinal: soft, positive bowel sounds Healing wound right side Musculoskeletal: no edema, pulses present Neurological: non-focal, moves all 4 limbs Lymphatic: no nodes Psychiatric: normal affect, A&O x 3 Skin: no rash, cap refill <2 seconds Dx/Plan (1) Chronic abdominal wound infection Code(s): S31.109A - UNSP OPN WND ABD WALL, UNSP Q W/O PENET PERIT CAV, INIT; L08.9 - LOCAL INFECTION OF THE SKIN AND SUBCUTANEOUS TISSUE, UNSP Status: Acute (2) CKD (chronic kidney disease), stage III Code(s): N18.3 - CHRONIC KIDNEY DISEASE, STAGE 3 (MODERATE) Status: Chronic Comment: Stable, avoid nephrotoxic meds and limit contrast exposure (3) Diabetes mellitus Code(s): E11.9 - TYPE 2 DIABETES MELLITUS WITHOUT COMPLICATIONS Status: Chronic Qualifiers: Diabetes mellitus type: 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 Diabetes mellitus complication status: with kidney complications Chronic kidney disease stage: stage 3 (moderate) (4) Dyslipidemia Code(s): E78.5 - HYPERLIPIDEMIA, UNSPECIFIED Status: Chronic Comment: continue statin (5) Hypertension Code(s): I10 - ESSENTIAL (PRIMARY) HYPERTENSION Status: Chronic Qualifiers: Hypertension type: essential hypertension Qualified Code(s): I10 - Essential (primary) hypertension Comment: Resume home BP regimen, serial monitoring (6) Morbid obesity with BMI of 40.0-44.9, adult Code(s): E66.01 - MORBID (SEVERE) OBESITY DUE TO EXCESS CALORIES; Z68.41 - BODY MASS INDEX (BMI) 40.0-44.9, ADULT Status: Chronic (7) Chest pain Code(s): R07.9 - CHEST PAIN, UNSPECIFIED Status: Resolved - Plan cont current plan of care * Await second part of stress test tomorrow * Ordered wound care for chronic abdominal wound * SHIRLEY improved, continue to hold lisinopril * Continue other home medications * Palliative and spiritual care following
--- NOTE | 2019-01-29 17:41 | HP ---
PRIMARY CARE PHYSICIAN: Juliette Chan. The patient presented to the emergency room with pressured chest pain lasting 2 hours, relieved with nitroglycerin. She was noted to have elevated blood pressure. She has a history of chronic kidney disease, stage 3, related to diabetes mellitus type 2. She has a history of rheumatoid arthritis. PHYSICAL EXAMINATION: VITAL SIGNS: On admission, blood pressure 195/105, pulse 85, and respirations 20. CHEST: Clear to auscultation and percussion. HEART: Regular rate and rhythm without murmurs or gallops. EXTREMITIES: She has trace edema. LABORATORY DATA: Her troponins were 0.035, 0.054, 0.049. She is being studied with a nuclear medicine stress test. Second part will be done tomorrow. Further plans will be determined when that is available. Job ID: [id number]
[2019-01-29] MEDS: Mirtazapine 30 MG TAB PO SCH (20:31)
[2019-01-29] MEDS: Rosuvastatin 10 MG TAB PO SCH (20:31)
[2019-01-29] MEDS: Ferrous Sulfate 325 MG TAB PO SCH (20:31)
[2019-01-30] MEDS: Sodium Chloride 0.9% 1,000 ML IV SCH (00:31)
[2019-01-30] MEDS: Acetaminophen 325 MG TAB PO PRN (07:51)
--- NOTE | 2019-01-30 09:42 | NM ---
NUCLEAR MEDICINE CARDIAC MYOCARDIAL PERFUSION SPECT EJECTION FRACTION STUDY WALL MOTION CINE: 01/30/2019 HISTORY: 53-year-old female with hypertension, diabetes mellitus, and dyslipidemia, presents with chest pain. TECHNIQUE: Number of days: 1 Rest study: Tc99m sestamibi (Cardiolite) dose: 29.0 mCi Pharmacologic stress: Lexiscan dose: 0.4 mg Stress study: Tc99m sestamibi (Cardiolite) dose: 33.0 mCi FINDINGS: CARDIAC (MYOCARDIAL PERFUSION) SPECT There are no reversible myocardial perfusion defects. EJECTION FRACTION STUDY EF = 79% WALL MOTION CINE Normal. IMPRESSION: No evidence of reversible ischemia. [place] POS: CECILIA
[2019-01-30 09:48] LABS: #Basophils 0.1 thou/uL (0.0-0.2); #Eosinphils 0.2 thou/uL (0.0-0.7); #Lymphocytes 2.3 thou/uL (1.20-3.40); #Monocytes 0.6 thou/uL (0.11-0.59); #Neutrophils 5.1 thou/uL (1.40-6.50); %Basophils 1.1 % (0.0-1.0); %Eosinophils 2.8 % (0.0-10.0); %Monocytes 7.4 % (0.0-10.0); %Neutrophils 60.7 % (42.0-75.0); Hemoglobin 11.3 g/dL (12.0-16.0); Mean Corpuscular HGB CONC 33.8 g/dL (32.0-36.0); Mean Corpuscular Hemoglobin 28.2 pg (27.0-31.0); Mean Corpuscular Volume 83.4 fL (78.0-98.0); Mean Platelet Volume 7.4 fL (7.4-10.4); Platelet Count 208 thou/uL (130-400); RBC Distribution Width 12.1 % (11.5-14.5); Red Blood Cell (RBC) Count 4.01 mill/uL (4.20-5.40); White Blood Cell (WBC) Count 8.3 thou/uL (4.8-10.8)
[2019-01-30 10:08] LABS: Anion Gap 12 mmol/L (10-20); BUN (Urea Nitrogen) 23 mg/dL (9.8-20.1); Calc. Creatinine Clearance 72 mL/min (70-130); Carbon Dioxide 24 mmol/L (22-29); Chloride 107 mmol/L (98-107); Estimated GFR-MDRD 40; Glucose 155 mg/dL (70-105); Potassium 4.3 mmol/L (3.5-5.1); Sodium 139 mmol/L (136-145)
[2019-01-30] MEDS: NIFEdipine 10 MG CAP PO SCH ×2 (10:15→15:45)
[2019-01-30] MEDS: hydrOXYzine Pamoate 25 mg Capsule PO SCH ×2 (10:15→15:45)
[2019-01-30] MEDS: Aspirin 81 mg Enteric Coated Tablet PO SCH (10:15)
[2019-01-30] MEDS: traMADol HCl 50 MG TAB PO PRN (10:19)
[2019-01-30 14:19] VITALS: BMI 40.9
[2019-01-30 15:59] VITALS: BP 137/68; TEMP 98.7
--- NOTE | 2019-02-05 11:46 | STRESS ---
Acquisition Time: 2019-01-29 09:24:38 Total Exercise Time: 00:01:00 Test Indications: CHEST PAIN Medications: Protocol: LEXISCAN Max HR: 090 BPM 54% of Pred: 165 BPM Max BP: 132/076 mmHG Max Work Load: 1.0 METS RESTING ECG: NORMAL SINUS RHTHYM AT 72 BPM SYMPTOMS: DYSPNEA AND CHEST TIGHTNESS NORMAL BP RESPONSE ECTOPY: NONE ECG STRESS: NO SIGNIFICANT CHANGES INTERPRETATION: NEGATIVE ECG/AWAIT NUCLEAR IMAGES FOR DEFINITIVE DIAGNOSIS Confirmed by VERNON GASPAR ([id number]) on 02/05/2019 11:45:57 AM Referred By: STERLING DELGADO Confirmed By:VERNON GASPAR
== END 2019-01-30 18:13 | disposition home or self-care (01) ==
LOC: ERS 02:45 → ERHOLD 04:48 → 2SW 08:05
PROVIDERS: ADMIT Hospitalist; ATTEND Hospitalist
DX: R07.89 Other chest pain (principal); I12.9 Hypertensive chronic kidney disease with stage 1 through stage 4 chronic kidney disease, or unspecified chronic kidney disease; E11.22 Type 2 diabetes mellitus with diabetic chronic kidney disease; N18.3 Chronic kidney disease, stage 3 (moderate); J45.909 Unspecified asthma, uncomplicated; E78.5 Hyperlipidemia, unspecified; M06.9 Rheumatoid arthritis, unspecified; L40.50 Arthropathic psoriasis, unspecified; K21.9 Gastro-esophageal reflux disease without esophagitis; F41.8 Other specified anxiety disorders; F32.9 Major depressive disorder, single episode, unspecified; M32.9 Systemic lupus erythematosus, unspecified; Z79.51 Long term (current) use of inhaled steroids; Z79.82 Long term (current) use of aspirin; Z79.84 Long term (current) use of oral hypoglycemic drugs; Z79.899 Other long term (current) drug therapy; Z87.891 Personal history of nicotine dependence; Z88.0 Allergy status to penicillin; Z88.2 Allergy status to sulfonamides; Z88.5 Allergy status to narcotic agent; Z88.8 Allergy status to other drugs, medicaments and biological substances; Z91.14 Patient's other noncompliance with medication regimen
CPT/HCPCS: 36415; 36416; 71045; 78452; 80048; 80053; 80061; 81001; 82553; 84484; 85025; 87077; 87086; 93005; 93017; 96360; 96361; A9500; G0378; J2785; Q0177

== ENCOUNTER 2019-06-13 14:16 | Outpatient (CLI) | payer OTHER ==
--- NOTE | 2019-06-13 15:14 | MMO ---
Bilateral MAMMO Bilat Diag DDI+ALYX. CLINICAL HISTORY: Patient is 53 years old and is seen for diagnostic exam. The patient has the following family history of breast cancer: mother, at age 34 and cousin female. The patient has a history of cervical cancer at age 22. VIEWS: The views performed were: bilateral craniocaudal with tomosynthesis; bilateral mediolateral oblique with tomosynthesis; and bilateral mediolateral with tomosynthesis. FILMS COMPARED: The present examination has been compared to prior imaging studies performed at [facility] on 10/22/2013, 12/10/2014, 01/12/2017 and 06/13/2019. MAMMOGRAM FINDINGS: The breasts are almost entirely fat. There are no suspicious masses, suspicious calcifications, or new areas of architectural distortion. IMPRESSION: THERE IS NO MAMMOGRAPHIC EVIDENCE OF MALIGNANCY. A ROUTINE FOLLOW-UP MAMMOGRAM IN 1 YEAR IS RECOMMENDED. THE RESULTS OF THIS EXAM WERE SENT TO THE PATIENT. ACR BI-RADS Category 1 - Negative MAMMOGRAPHY NOTE: 1. A negative mammogram report should not delay a biopsy if a dominant of clinically suspicious mass is present. 2. Approximately 10% to 15% of breast cancers are not detected by mammography. 3. Adenosis and dense breasts may obscure an underlying neoplasm. Reported by: SIVA HINKLE MD Electonically Signed: [id number]
--- NOTE | 2019-06-13 15:28 | ULT ---
RIGHT BREAST ULTRASOUND: Date: 06/13/19 HISTORY: Multiple palpable masses in the right breast. There is a palpable mass in the 8 o'clock position appr oximately 15 cm from the nipple. There are two adjacent palpable masses in the 3 o'clock approximatel y 5 cm from the nipple. COMPARISON: Mammogram dated 06/13/19. TECHNIQUE: Multiplanar Miramontes scale and color Doppler images were obtained in a right breast ultrasound. FINDINGS: Normal appearing breast parenchyma is seen. No solid mass or cyst is seen. No suspicious shadowing is present. IMPRESSION: BI-RADS Category 1 - Negative. Annual screening mammography recommended. POS: OFF
== END 2019-06-13 14:17 | disposition home or self-care (01) ==
LOC: BICMAMMO 14:16
PROVIDERS: ATTEND Family Medicine
DX: N63.10 Unspecified lump in the right breast, unspecified quadrant (principal); Z80.3 Family history of malignant neoplasm of breast; Z91.89 Other specified personal risk factors, not elsewhere classified; Z85.41 Personal history of malignant neoplasm of cervix uteri
CPT/HCPCS: 77066; G0279

== ENCOUNTER 2019-08-02 09:15 | Outpatient (CLI) | payer OTHER | END 2019-08-02 09:16 | disposition home or self-care (01) | LOC: CTENTCT 09:15 | PROVIDERS: ATTEND Student in an Organized Health Care Education/Training Program | DX: J32.9 Chronic sinusitis, unspecified (principal) | CPT/HCPCS: 70486 ==

== ENCOUNTER 2019-10-22 12:35 | Outpatient (CLI) | payer OTHER ==
--- NOTE | 2019-10-22 13:27 | ULT ---
US Renal Bilateral STANDARD History: Kidney disease Comparison: CT abdomen and pelvis February 2018 Findings: Real-time grayscale and color evaluation of the kidneys and urinary bladder was performed. Right kidney measures 12 x 4.5 x 4.6 cm and the left kidney measures 11 x 5.8 x 5.6 cm. No renal mass , hydronephrosis, or abnormal calcifications. Prevoid urinary bladder volume is 133 mL. Impression: No evidence for obstructive uropathy.
== END 2019-10-22 12:36 | disposition home or self-care (01) ==
LOC: ULT 12:35
PROVIDERS: ATTEND Internal Medicine Nephrology
DX: I12.9 Hypertensive chronic kidney disease with stage 1 through stage 4 chronic kidney disease, or unspecified chronic kidney disease (principal); N18.3 Chronic kidney disease, stage 3 (moderate)
CPT/HCPCS: 76770

== ENCOUNTER 2019-12-30 16:02 | Emergency (ER) | payer OTHER ==
[2019-12-30] MEDS ORDERED: Dexamethasone 10 MG/ML VIAL ONE (17:13)
[2019-12-30] MEDS ORDERED: Indomethacin 25 mg Capsule PO SCH (17:30)
--- NOTE | 2019-12-31 07:21 | RAD ---
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 Previously se en Steinmann pin transfixing the subtalar and tibiotalar joint has been removed. There is posterior lateral subluxation at the tibiotalar joint. Ankle mortise: As above Talar Dome: Intact Subtalar joint: Normal. Visualized hindfoot: There is partial amputation of the fifth digit. Periarticular soft tissues: Prominent soft tissue swelling the distal right foreleg and ankle IMPRESSION: 1. Interval removal of the hindfoot Steinmann pin transfixing the subtalar joint and tibiotalar joint . 2. 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 3. Posterior lateral subluxation of the tibiotalar joint. 4. Prominent soft tissue swelling of the distal right foreleg and ankle. 5. Partial ray amputation of the fifth digit through the fifth metatarsal base.
== END 2019-12-30 18:02 | disposition home or self-care (01) ==
LOC: ERS 16:02
DX: M25.571 Pain in right ankle and joints of right foot (principal); E78.2 Mixed hyperlipidemia; G47.30 Sleep apnea, unspecified; J45.909 Unspecified asthma, uncomplicated; M79.7 Fibromyalgia; E11.40 Type 2 diabetes mellitus with diabetic neuropathy, unspecified; M06.9 Rheumatoid arthritis, unspecified; L40.50 Arthropathic psoriasis, unspecified; K21.9 Gastro-esophageal reflux disease without esophagitis; G43.909 Migraine, unspecified, not intractable, without status migrainosus; E11.39 Type 2 diabetes mellitus with other diabetic ophthalmic complication; H42 Glaucoma in diseases classified elsewhere; I12.9 Hypertensive chronic kidney disease with stage 1 through stage 4 chronic kidney disease, or unspecified chronic kidney disease; E11.22 Type 2 diabetes mellitus with diabetic chronic kidney disease; N18.9 Chronic kidney disease, unspecified; F41.9 Anxiety disorder, unspecified; F32.9 Major depressive disorder, single episode, unspecified; Z87.891 Personal history of nicotine dependence; Z79.82 Long term (current) use of aspirin; Z79.899 Other long term (current) drug therapy; Z79.51 Long term (current) use of inhaled steroids; Z79.84 Long term (current) use of oral hypoglycemic drugs
CPT/HCPCS: 36416; J1100

== ENCOUNTER 2020-09-24 22:52 | Inpatient (IN) | payer OTHER ==
[2020-09-24 23:32] LABS: #Eosinphils 0.3 thou/uL (0.0-0.7); #Lymphocytes 1.7 thou/uL (1.20-3.40); #Monocytes 0.6 thou/uL (0.11-0.59); #Neutrophils 9.7 thou/uL (1.40-6.50); %Basophils 0.3 % (0.0-1.0); %Eosinophils 2.3 % (0.0-10.0); %Lymphocytes 13.7 % (21.0-51.0); %Monocytes 4.7 % (0.0-10.0); Hemoglobin 12.6 g/dL (12.0-16.0); Mean Corpuscular HGB CONC 34.6 g/dL (32.0-36.0); Mean Corpuscular Hemoglobin 28.3 pg (27.0-31.0); Mean Platelet Volume 7.6 fL (7.4-10.4); Platelet Count 228 thou/uL (130-400); RBC Distribution Width 13.9 % (11.5-14.5); Red Blood Cell (RBC) Count 4.46 mill/uL (4.20-5.40); White Blood Cell (WBC) Count 12.3 thou/uL (4.8-10.8)
[2020-09-24] MEDS ORDERED: Morphine 4 MG/ML VIAL ONE (23:36)
[2020-09-24] MEDS ORDERED: Ketorolac Tromethamine 30 MG/ML VIAL ONE (23:36)
[2020-09-24] MEDS ORDERED: Clindamycin/D5W 900 mg/50 ml Premix Bag ONE (23:36)
[2020-09-24 23:51] LABS: Anion Gap 17 mmol/L (10-20); BUN (Urea Nitrogen) 41 mg/dL (9.8-20.1); Calc. Creatinine Clearance 0 mL/min (70-130); Carbon Dioxide 20 mmol/L (22-29); Chloride 107 mmol/L (98-107); Estimated GFR-MDRD 23; Potassium 4.7 mmol/L (3.5-5.1); Sodium 139 mmol/L (136-145)
[2020-09-24 23:52] LABS: ALT (SGPT) 22 U/L (8-55); AST (SGOT) 22 U/L (5-34); Albumin 3.5 g/dL (3.5-5.0); Alkaline Phosphatase 86 U/L (40-110); Bilirubin, Total Less than 0.2 mg/dL (0.2-1.2); Globulin 3.5 g/dL (2.4-3.5); Glucose 305 mg/dL (70-105)
[2020-09-25] MEDS ORDERED: Labetalol HCl 100 MG/20 ML VIAL ONE (00:28)
[2020-09-25 02:39] VITALS: BMI 45.6
[2020-09-25] MEDS ORDERED: Sodium Chloride 0.9% 1,000 ML IV SCH (02:45)
[2020-09-25 03:05] LABS: Lactic Acid 1.1 mmol/L (0.5-2.2)
[2020-09-25] MEDS ORDERED: Calcium Carbonate 500 MG ChewTAB PO PRN (04:03)
[2020-09-25] MEDS ORDERED: Morphine 2 MG/ML SYRINGE SLOW IVP PRN (04:03)
[2020-09-25] MEDS ORDERED: Acetaminophen 650 MG Suppository PR PRN (04:03)
[2020-09-25] MEDS ORDERED: Acetaminophen 325 MG TAB PO PRN (04:03)
[2020-09-25] MEDS ORDERED: HumaLOG 300 UNITS/3 ML VIAL SC PRN (04:12)
[2020-09-25] MEDS ORDERED: Labetalol HCl 100 MG/20 ML VIAL SLOW IVP PRN (04:12)
[2020-09-25] MEDS ORDERED: Dextrose 5% in Water 1,000 ML IV PRN (04:12)
[2020-09-25] MEDS ORDERED: Dextrose 50% Abboject 50 ML SYRINGE SLOW IVP PRN (04:12)
--- NOTE | 2020-09-25 04:17 | PDOC.HHP ---
Hospitalist HPI - History of Present Illness L side tooth ache History of Present Illness: Case of an 55y/o female with pmhx of htn, hld, BA, garland, celiac disease dmt2, RA, lupes psoriatic arthritis who comes to the emergency department tonight complaining of left upper jaw pain facial swellingf for about a week. Patient was found to be hypertensive tachycardic and febrile. patient state pain was 10/10, described dull and throbbing, located on left upper jaw. symtoms are associated with fever and chills. patient states has noted some purulent secretions. patient denies cough dysuria or sob Hospitalist ROS - Review of Systems All other systems reviewed; all pertinent +/- noted in HPI/Subj Hospitalist History - Past Surgical History Past Surgical History: reports: Cholecystectomy, Hysterectomy, Tubal Ligation, Tonsillectomy - Family History Family History: reports: no pertinent history - Social History Smoking Status: Former smoker Alcohol: reports: None Drugs: reports: none - Exam General Appearance: NAD, awake alert Eye: PERRL, anicteric sclera ENT - other findings: L side swelling painfull to palpation w erythema increase temp Heart: RRR, no murmur, no gallops Respiratory: CTAB, no wheezes, no rales Gastrointestinal: soft, non-tender, non-distended Extremities: no cyanosis, no clubbing, no edema Skin: normal turgor, no lesions, no rashes Neurological: cranial nerve grossly intact, normal sensation to touch Musculoskeletal: normal tone, normal strength, no muscle wasting Psychiatric: normal affect, normal behavior, A&O x 3 Hospitalist Results - Labs Result Diagrams: 09/24/20 23:15 09/24/20 23:15 Lab results: WBC 12.3 thou/uL (4.8-10.8) H 09/24/20 23:15 Hgb 12.6 g/dL (12.0-16.0) 09/24/20 23:15 Hct 36.5 % (36.0-47.0) 09/24/20 23:15 MCV 82.0 fL (78.0-98.0) 09/24/20 23:15 Plt Count 228 thou/uL (130-400) 09/24/20 23:15 Neutrophils % 79.0 % (42.0-75.0) H 09/24/20 23:15 Sodium 139 mmol/L (136-145) 09/24/20 23:15 Potassium 4.7 mmol/L (3.5-5.1) 09/24/20 23:15 Chloride 107 mmol/L (98-107) 09/24/20 23:15 Carbon Dioxide 20 mmol/L (22-29) L 09/24/20 23:15 BUN 41 mg/dL (9.8-20.1) H 09/24/20 23:15 Creatinine 2.21 mg/dL (0.6-1.1) H 09/24/20 23:15 Glucose 305 mg/dL (70-105) H 09/24/20 23:15 Lactic Acid 1.1 mmol/L (0.5-2.2) 09/25/20 02:42 Calcium 9.0 mg/dL (7.8-10.44) 09/24/20 23:15 Total Bilirubin Less than 0.2 mg/dL (0.2-1.2) L 09/24/20 23:15 AST 22 U/L (5-34) 09/24/20 23:15 ALT 22 U/L (8-55) 09/24/20 23:15 Alkaline Phosphatase 86 U/L (40-110) 09/24/20 23:15 Troponin I 0.025 ng/mL (< 0.028) 09/24/20 23:18 Serum Total Protein 7.0 g/dL (6.0-8.3) 09/24/20 23:15 Albumin 3.5 g/dL (3.5-5.0) 09/24/20 23:15 Hospitalist H&P A/P - Problem (1) Sepsis Code(s): A41.9 - SEPSIS, UNSPECIFIED ORGANISM Status: Acute (2) Tooth infection Code(s): K04.7 - PERIAPICAL ABSCESS WITHOUT SINUS Status: Acute (3) Hypertensive urgency Code(s): I16.0 - HYPERTENSIVE URGENCY Status: Acute (4) Asthma Code(s): J45.909 - UNSPECIFIED ASTHMA, UNCOMPLICATED Status: Acute (5) HLD (hyperlipidemia) Code(s): E78.5 - HYPERLIPIDEMIA, UNSPECIFIED Status: Acute (6) Uncontrolled diabetes mellitus Code(s): E11.65 - TYPE 2 DIABETES MELLITUS WITH HYPERGLYCEMIA Status: Acute (7) CKD (chronic kidney disease), stage III Code(s): N18.3 - CHRONIC KIDNEY DISEASE, STAGE 3 (MODERATE) * DO NOT USE * Status: Chronic (8) Acute kidney failure Status: Acute - Plan Plan: Case of an 55y/o female with the stated pmhx who presents with sepsis secondary to tooth infection sepsis / tooth infection - elevated wbc, tachycardia, febrile elevated LA with a tooth infection - sepsis bundles started, cultures taken, ivfs administed started on borad spectrum abx - continue w clinda - f/u cultures - surgeon consulted - pain management - f/u LA - continue ivfs - npo - f/u head ct results, pending official reading hypertensive urgency - labetalol iv prn - seems to have a pain component dm - long acting insuslin - acc+ss marzena over chronic kidney injury - on ivfs -f/u bmp continue home meds when able to tolerate po
[2020-09-25] MEDS: Sodium Chloride 0.9% 1,000 ML IV SCH ×3 (04:31→15:42)
--- NOTE | 2020-09-25 06:53 | CT ---
PRELIMINARY REPORT/[facility]/EMERGENCY AFTER HOURS PROCEDURE: EXAM: CT Maxillofacial Without Intravenous Contrast. CLINICAL HISTORY: 55-year-old female presents to the emergency department tonight complaining of left upper jaw pain fa cial swelling. Patient was found in triage to be profoundly hypertensive tachycardic and febrile TECHNIQUE: Axial computed tomography images of the face without intravenous contrast. Sagittal and coronal refor mations performed. CONTRAST: Without COMPARISON: None provided. FINDINGS: Patient motion limits detailed evaluation. BONES: No acute fracture or focal osseous lesion. The mandible is intact. SOFT TISSUES: The paranasal soft tissues are unremarkable. SINUSES: The sinuses are clear. ORBITS: The orbits are normal. No retrobulbar hematoma or mass. IMPRESSION: 1. CT exam extremely limited secondary to patient motion. 2. Dental caries and missing dentition in the mandible without discrete dental complication. 3. No soft tissue mass or other acute finding of the face. If there is persistent concern, recommen d repeat exam when patient is able. ELECTRONICALLY SIGNED BY: Judd Caicedo DO Sep 25, 2020 12:39:05 AM CDT This report is intended for review by the ordering physician only, in accordance of law. If you recei ve this report in error, please call [facility] at [phone]. FINAL REPORT EMRGENCY AFTER HOURS CT OF THE FACE WITHOUT CONTRAST: Date: 09/24/2020 FINDINGS/IMPRESSION: I agree with the findings and impression given in the preliminary report per [facility] physici an. Dental amalgam and motion artifact limit this exam. There are multiple dental caries without obvious periodontal abscess. POS: JONY
[2020-09-25] MEDS: Enoxaparin Sodium 30 MG/0.3 ML SYRINGE SC SCH (09:02)
[2020-09-25] MEDS: Morphine 4 MG/ML VIAL SLOW IVP PRN ×3 (09:07→23:39)
[2020-09-25] MEDS: Clindamycin/D5W 900 MG in Premix Bag 1 BAG IVPB SCH ×3 (09:08→23:34)
[2020-09-25 13:00] LABS: SARS-CoV-2 MS2 Positive; SARS-CoV-2 N Gene Negative; SARS-CoV-2 S Gene Negative; SARS-CoV-2 by NAA Not Detected (NotDetected); SARS-CoV-2 orf1ab Negative
[2020-09-25 14:29] LABS: #Eosinphils 0.2 thou/uL (0.0-0.7); #Lymphocytes 1.4 thou/uL (1.20-3.40); #Monocytes 0.4 thou/uL (0.11-0.59); #Neutrophils 6.7 thou/uL (1.40-6.50); %Basophils 0.4 % (0.0-1.0); %Eosinophils 2.8 % (0.0-10.0); %Lymphocytes 16.2 % (21.0-51.0); %Monocytes 4.9 % (0.0-10.0); %Neutrophils 75.8 % (42.0-75.0); Mean Corpuscular Hemoglobin 28.5 pg (27.0-31.0); Mean Corpuscular Volume 83.7 fL (78.0-98.0); Mean Platelet Volume 7.5 fL (7.4-10.4); Platelet Count 175 thou/uL (130-400); Red Blood Cell (RBC) Count 3.85 mill/uL (4.20-5.40); White Blood Cell (WBC) Count 8.8 thou/uL (4.8-10.8)
[2020-09-25 14:51] LABS: Anion Gap 13 mmol/L (10-20); BUN (Urea Nitrogen) 43 mg/dL (9.8-20.1); Calc. Creatinine Clearance 54 mL/min (70-130); Calcium 8.4 mg/dL (7.8-10.44); Carbon Dioxide 20 mmol/L (22-29); Chloride 113 mmol/L (98-107); Estimated GFR-MDRD 27; Glucose 131 mg/dL (70-105); Potassium 4.8 mmol/L (3.5-5.1); Sodium 141 mmol/L (136-145)
[2020-09-25] MEDS ORDERED: Nitroglycerin 0.4 MG TAB (25 Tab Bottle) SL PRN (15:36)
[2020-09-25] MEDS: Chlorhexidine Gluconate 15 ML UDCUP SSP SCH ×2 (15:41→21:15)
[2020-09-25] MEDS ORDERED: Nitroglycerin 2% Ointment 1 INCH/1 GM Packet TOP PRN ×2 (15:44→15:50)
[2020-09-25] MEDS ORDERED: Nitroglycerin 2% Ointment 1 INCH/1 GM Packet TOP SCH (16:00)
[2020-09-25] MEDS ORDERED: NIFEdipine XL 30 MG TAB PO SCH (16:00)
[2020-09-25] MEDS ORDERED: Ondansetron ODT 4 MG TAB PO PRN (16:07)
[2020-09-25 16:46] LABS: Troponin I 0.031 ng/mL (< 0.028)
--- NOTE | 2020-09-25 17:19 | RAD ---
PORTABLE CHEST: 09/25/20 HISTORY: Chest pain. COMPARISON: 01/28/19. Mild cardiomegaly. Vascular markings show mild engorgement. No infiltrate or significant effusion usha ntified. IMPRESSION: No acute findings. POS: AGW
[2020-09-25] MEDS ORDERED: cloNIDine 0.1 MG TAB PO SCH (17:30)
[2020-09-25 19:13] LABS: Troponin I 0.021 ng/mL (< 0.028)
[2020-09-25] MEDS: Mometasone 200 MCG/Formoterol 5 MCG 120 PUFF INHALER INH SCH (19:39)
[2020-09-25] MEDS ORDERED: Insulin Glargine 10 UNITS in Pre-Filled Syringe 1 EACH SC SCH (21:00)
[2020-09-25] MEDS: Ferrous Sulfate 325 MG TAB PO SCH (21:16)
[2020-09-25] MEDS: Mirtazapine 15 MG TAB PO SCH (21:17)
[2020-09-25] MEDS: rOPINIRole HCl 1 MG TAB PO SCH (21:17)
[2020-09-25] MEDS: Simvastatin 10 MG TAB PO SCH (21:18)
[2020-09-25] MEDS: HYDROcodone/Acetaminophen 7.5/325 mg Tablet PO PRN (21:26)
[2020-09-26 04:58] LABS: Band 1 % (5-11); Eosinophils 1 % (0-10); Hemoglobin 10.6 g/dL (12.0-16.0); Hypochromia SLIGHT = 6-15 cells (100X) (0-5/hpf); Lymphocytes 17 % (21-51); MDiff Complete? YES; Mean Corpuscular Hemoglobin 27.8 pg (27.0-31.0); Mean Corpuscular Volume 84.3 fL (78.0-98.0); Mean Platelet Volume 7.8 fL (7.4-10.4); Monocytes 5 % (0-10); Neutrophil 76 % (42-75); Platelet Count 163 thou/uL (130-400); Platelet Morphology Comment Appears Adequate; RBC Distribution Width 13.9 % (11.5-14.5); White Blood Cell (WBC) Count 8.2 thou/uL (4.8-10.8)
[2020-09-26 05:01] LABS: ALT (SGPT) 34 U/L (8-55); AST (SGOT) 38 U/L (5-34); Alkaline Phosphatase 77 U/L (40-110); Anion Gap 12 mmol/L (10-20); BUN (Urea Nitrogen) 40 mg/dL (9.8-20.1); Bilirubin, Total 0.2 mg/dL (0.2-1.2); Calc. Creatinine Clearance 56 mL/min (70-130); Carbon Dioxide 20 mmol/L (22-29); Chloride 111 mmol/L (98-107); Estimated GFR-MDRD 28; Globulin 2.3 g/dL (2.4-3.5); Glucose 138 mg/dL (70-105); Potassium 4.9 mmol/L (3.5-5.1); Protein, Total 5.3 g/dL (6.0-8.3); Sodium 138 mmol/L (136-145)
[2020-09-26] MEDS: Morphine 4 MG/ML VIAL SLOW IVP PRN (05:08)
[2020-09-26] MEDS: HYDROcodone/Acetaminophen 7.5/325 mg Tablet PO PRN ×3 (05:08→20:47)
[2020-09-26] MEDS: Mometasone 200 MCG/Formoterol 5 MCG 120 PUFF INHALER INH SCH ×2 (08:49→20:26)
[2020-09-26] MEDS ORDERED: Aspirin 325 mg Enteric Coated Tablet PO SCH (09:00)
[2020-09-26] MEDS: Clindamycin/D5W 900 MG in Premix Bag 1 BAG IVPB SCH ×2 (09:08→17:38)
[2020-09-26] MEDS: Multivit, Chewable SF 1 TAB PO SCH (09:08)
[2020-09-26] MEDS: Aspirin 81 mg Enteric Coated Tablet PO SCH (09:08)
[2020-09-26] MEDS: Saccharomyces boulardii 250 MG CAP PO SCH (09:09)
[2020-09-26] MEDS: Chlorhexidine Gluconate 15 ML UDCUP SSP SCH ×3 (09:09→20:46)
[2020-09-26] MEDS: Loratadine 10 MG TAB PO SCH (09:09)
[2020-09-26] MEDS: Enoxaparin Sodium 30 MG/0.3 ML SYRINGE SC SCH (09:09)
[2020-09-26] MEDS: Insulin Glargine 10 UNITS in Pre-Filled Syringe 1 EACH SC SCH (09:11)
[2020-09-26] MEDS ORDERED: Vancomycin 1 GM in Premix Bag 1 BAG IVPB SCH (10:15)
--- NOTE | 2020-09-26 11:15 | PDOC.FMACP ---
Advance Care Planning - Problem (1) Palliative care encounter Status: Acute Code(s): Z51.5 - ENCOUNTER FOR PALLIATIVE CARE (2) Acute kidney failure Status: Acute (3) Hypertensive urgency Status: Acute Code(s): I16.0 - HYPERTENSIVE URGENCY (4) Sepsis Status: Acute Code(s): A41.9 - SEPSIS, UNSPECIFIED ORGANISM (5) Morbid obesity with BMI of 40.0-44.9, adult Status: Chronic Code(s): E66.01 - MORBID (SEVERE) OBESITY DUE TO EXCESS CA LORIES; Z68.41 - BODY MASS INDEX [BMI]40.0-44.9, ADULT - Note Summary: Advanced Care Planning was discussed. The diagnosis, prognosis and goals of care were discussed. Appropriate forms and documentation to accomplish the goals of care were discussed. All questions were answered. The Palliative Care Team will be engaged to assist with completion of any outstanding forms that are needed.
[2020-09-26] MEDS: NIFEdipine XL 30 MG TAB PO SCH (16:52)
[2020-09-26] MEDS: Sodium Chloride 0.9% 1,000 ML IV SCH (17:38)
[2020-09-26] MEDS: Ferrous Sulfate 325 MG TAB PO SCH (20:46)
[2020-09-26] MEDS: Mirtazapine 15 MG TAB PO SCH (20:46)
[2020-09-26] MEDS: rOPINIRole HCl 1 MG TAB PO SCH (20:46)
[2020-09-26] MEDS: Simvastatin 10 MG TAB PO SCH (20:47)
[2020-09-26] MEDS: Labetalol HCl 100 MG/20 ML VIAL SLOW IVP PRN (20:48)
--- NOTE | 2020-09-26 23:07 | PDOC.HOSPP ---
- Subjective Encounter Date: 09/26/20 Encounter Time: 10:00 Subjective: Patient seen and examined for sepsis due to dental infection. Dental pain gradually improving. Low-grade fever. - Objective Vital Signs & Weight: Vital Signs (12 hours) Temp Pulse Pulse Resp BP BP BP 09/26/20 20:48 92 205/111 H 09/26/20 20:26 09/26/20 18:55 99.9 F H 92 20 228/105 H 09/26/20 16:48 99.6 F 80 17 131/89 09/26/20 12:43 73 127/60 09/26/20 11:35 98.8 F 76 12 116/57 L Pulse Ox 09/26/20 20:48 09/26/20 20:26 96 09/26/20 18:55 97 09/26/20 16:48 97 09/26/20 12:43 09/26/20 11:35 100 Weight Admit Weight 233 lb 14.4 oz Weight 233 lb 14.4 oz I&O: 09/25/20 09/26/20 09/27/20 06:59 06:59 06:59 Intake Total 400 3190 Balance 400 3190 Result Diagrams: 09/26/20 04:19 09/26/20 04:19 Additional Labs: Accuchecks 09/26/20 09/26/20 09/26/20 17:36 10:47 04:59 POC Glucose 87 147 H 117 H 09/25/20 09/25/20 09/25/20 15:29 12:54 12:05 POC Glucose 148 H 102 H 69 L Abnormal Lab Results - Last 48 hrs 09/24/20 23:15: WBC 12.3 H, Neutrophils % 79.0 H, Lymphocytes % 13.7 L, Neutrophils # 9.7 H, Monocytes # 0.6 H 09/24/20 23:15: Carbon Dioxide 20 L, BUN 41 H, Creatinine 2.21 H, Total Bilirubi n Less than 0.2 L, Albumin/Globulin Ratio 1.0 L 09/24/20 23:15: Lactic Acid 2.8 H 09/25/20 14:16: RBC 3.85 L, Hgb 11.0 L, Hct 32.2 L, Neutrophils % 75.8 H, Lymphocytes % 16.2 L, Neutrophils # 6.7 H 09/25/20 14:16: Chloride 113 H, Carbon Dioxide 20 L, BUN 43 H, Creatinine 1.91 H 09/25/20 16:13: Troponin I 0.031 H 09/26/20 04:19: Chloride 111 H, Carbon Dioxide 20 L, BUN 40 H, Creatinine 1.86 H, AST 38 H, Serum Total Protein 5.3 L, Albumin 3.0 L, Globulin 2.3 L 09/26/20 04:19: RBC 3.80 L, Hgb 10.6 L, Hct 32.1 L, Neutrophils % (Manual) 76 H, Band Neuts % (Manual) 1 L, Lymphocytes % (Manual) 17 L 09/26/20 04:19: C-Reactive Protein 1.23 H Microbiology - Entire Visit 09/24/20 23:24 Venous blood - Right Hand Blood Culture - Preliminary Coagulase Neg Staphylococcus 09/24/20 23:15 Venous blood - Left Arm Blood Culture - Preliminary Specimen has been received and culture in progress. No Growth to date. Radiology Reviewed by me: Yes (CT facial bonesdental Care is) EKG Reviewed by me: Yes (Sinus rhythm on telemetry) Hospitalist ROS - Review of Systems Respiratory: denies: cough, dry, shortness of breath, hemoptysis, SOB with excertion, pleuritic pain, sputum, wheezing, other Cardiovascular: denies: chest pain, palpitations, orthopnea, paroxysmal noc. dys pnea, edema, light headedness, other - Medication Medications: Active Medications Generic Name Dose Route Start Last Admin Trade Name Freq PRN Reason Stop Dose Admin Hydrocodone Bitart/Acetaminophen 1 tab 09/25/20 04:03 09/26/20 20:47 Hydrocodone/Acetaminophen 7.5/325 Mg Tablet PO 1 tab Q4H PRN Administration Moderate Pain (4-6) Aspirin 81 mg 09/26/20 09:00 09/26/20 09:08 Aspirin 81 Mg Enteric Coated Tablet PO 81 mg DAILY GENARO Administration Chlorhexidine Gluconate 15 ml 09/25/20 15:00 09/26/20 20:46 Chlorhexidine Gluconate 15 Ml Udcup SSP 15 ml TID GENARO Administration Enoxaparin Sodium 30 mg 09/25/20 09:00 09/26/20 09:09 Enoxaparin Sodium 30 Mg/0.3 Ml Syringe SC 30 mg 0900 GENARO Administration Ferrous Sulfate 325 mg 09/25/20 21:00 09/26/20 20:46 Ferrous Sulfate 325 Mg Tab PO 325 mg HS GENARO Administration Clindamycin Phosphate/Dextrose 50 mls @ 100 mls/hr 09/25/20 08:00 09/26/20 17:38 900 mg/ Device IVPB 50 mls 0800,1600,2359 GENARO Administration Sodium Chloride 1,000 mls @ 30 mls/hr 09/25/20 15:39 09/26/20 17:38 Normal Saline 0.9% IV 1,000 mls .Q24H GENARO Administration Insulin Glargine 10 units/ 0.1 mls @ 0 mls/hr 09/26/20 09:00 09/26/20 09:11 Miscellaneous Medication SC 0.1 mls QAM GENARO Administration Vancomycin HCl 2 gm/ Sodium 500 mls @ 250 mls/hr 09/26/20 12:00 09/26/20 12:04 Chloride IVPB 500 mls Q24HR GENARO Administration Labetalol HCl 20 mg 09/25/20 15:57 09/26/20 20:48 Labetalol Hcl 100 Mg/20 Ml Vial SLOW IVP 20 mg Q4H PRN Administration SBP Greater Than 170 Loratadine 10 mg 09/26/20 09:00 09/26/20 09:09 Loratadine 10 Mg Tab PO 10 mg DAILY GENARO Administration Mirtazapine 15 mg 09/25/20 21:00 09/26/20 20:46 Mirtazapine 15 Mg Tab PO 15 mg HS GENARO Administration Mometasone Furoate/Formoterol Fumar 2 puff 09/25/20 18:30 09/26/20 20:26 Mometasone 200 Mcg/Formoterol 5 Mcg 120 Puff Inhaler INH 2 puff BID-RT GENARO Administration Multivitamins 1 tab 09/26/20 09:00 09/26/20 09:08 Multivit, Chewable Sf 1 Tab PO 1 tab DAILY GENARO Administration Nifedipine 30 mg 09/26/20 09:00 09/26/20 16:52 Nifedipine Xl 30 Mg Tab PO Not Given DAILY GENARO Pantoprazole Sodium 40 mg 09/26/20 09:00 09/26/20 09:09 Pantoprazole 40 Mg Tab PO 40 mg DAILY GENARO Administration Ropinirole HCl 0.5 mg 09/25/20 21:00 09/26/20 20:46 Ropinirole Hcl 1 Mg Tab PO 0.5 mg HS GENARO Administration Saccharomyces Boulardii 250 mg 09/26/20 09:00 09/26/20 09:09 Saccharomyces Boulardii 250 Mg Cap PO 250 mg DAILY GENARO Administration Sertraline HCl 150 mg 09/25/20 21:00 09/26/20 20:47 Sertraline Hcl 100 Mg Tab PO 150 mg HS GENARO Administration Simvastatin 20 mg 09/25/20 21:00 09/26/20 20:47 Simvastatin 10 Mg Tab PO 20 mg HS GENARO Administration Sodium Chloride 10 ml 09/26/20 21:00 09/26/20 20:47 Flush - Normal Saline 10 Ml Syringe IVF 10 ml Q12HR GENARO Administration - Exam General Appearance: ill appearing Neck: supple, no JVD Heart: RRR, no gallops, no rubs, normal peripheral pulses Respiratory: no wheezes, no rales, no ronchi, normal chest expansion Gastrointestinal: soft, non-tender, normal bowel sounds, no guarding, no rigidity Extremities: no cyanosis, no clubbing Musculoskeletal: generalized weakness Psychiatric: normal affect, A&O x 3 Hosp A/P - Plan DVT proph w/lovenox, DVT proph w/SCDs Sepsis due to dental infection Hypertensive urgency Acute kidney injury on CKD stage III 1 of 2 blood culture positive for coagulase-negative Staphylococcus Diabetes mellitus type II Hyperlipidemia Atypical chest painresolved Obstructive sleep apnea on CPAP Plan: Continue IV clindamycin. One dose of IV vancomycin. Continue chlorhexidine mouthwash. Await final blood cultures. Continue Lantus 10 units with sliding scale. Continue Procardia XL. Continue Zoloft and other medications as above. Discontinue IV morphine. A.m. labs. Outpatient follow-up with oral surgeon probably on Tuesday. Continue CPAP qhs
[2020-09-27] MEDS: Clindamycin/D5W 900 MG in Premix Bag 1 BAG IVPB SCH ×4 (00:25→22:55)
[2020-09-27] MEDS: HYDROcodone/Acetaminophen 7.5/325 mg Tablet PO PRN ×3 (00:27→20:39)
[2020-09-27 04:59] LABS: #Eosinphils 0.4 thou/uL (0.0-0.7); #Lymphocytes 2.1 thou/uL (1.20-3.40); #Monocytes 0.7 thou/uL (0.11-0.59); %Basophils 0.2 % (0.0-1.0); %Eosinophils 3.9 % (0.0-10.0); %Lymphocytes 22.8 % (21.0-51.0); %Monocytes 7.2 % (0.0-10.0); Hemoglobin 10.2 g/dL (12.0-16.0); Mean Corpuscular Hemoglobin 28.2 pg (27.0-31.0); Mean Platelet Volume 7.7 fL (7.4-10.4); Platelet Count 169 thou/uL (130-400); RBC Distribution Width 13.8 % (11.5-14.5); Red Blood Cell (RBC) Count 3.62 mill/uL (4.20-5.40)
[2020-09-27 05:19] LABS: ALT (SGPT) 28 U/L (8-55); AST (SGOT) 27 U/L (5-34); Alkaline Phosphatase 74 U/L (40-110); Anion Gap 12 mmol/L (10-20); BUN (Urea Nitrogen) 38 mg/dL (9.8-20.1); Bilirubin, Total 0.2 mg/dL (0.2-1.2); Calc. Creatinine Clearance 51 mL/min (70-130); Calcium 8.3 mg/dL (7.8-10.44); Carbon Dioxide 21 mmol/L (22-29); Chloride 110 mmol/L (98-107); Estimated GFR-MDRD 25; Globulin 2.7 g/dL (2.4-3.5); Glucose 110 mg/dL (70-105); Magnesium 1.8 mg/dL (1.6-2.6); Potassium 4.7 mmol/L (3.5-5.1); Protein, Total 5.7 g/dL (6.0-8.3); Sodium 138 mmol/L (136-145)
[2020-09-27] MEDS: Mometasone 200 MCG/Formoterol 5 MCG 120 PUFF INHALER INH SCH ×2 (08:04→18:29)
[2020-09-27] MEDS: Chlorhexidine Gluconate 15 ML UDCUP SSP SCH ×3 (09:03→20:46)
[2020-09-27] MEDS: Loratadine 10 MG TAB PO SCH (09:03)
[2020-09-27] MEDS: Aspirin 81 mg Enteric Coated Tablet PO SCH (09:03)
[2020-09-27] MEDS: Multivit, Chewable SF 1 TAB PO SCH (09:03)
[2020-09-27] MEDS: Enoxaparin Sodium 30 MG/0.3 ML SYRINGE SC SCH (09:04)
[2020-09-27] MEDS: Insulin Glargine 10 UNITS in Pre-Filled Syringe 1 EACH SC SCH (09:05)
[2020-09-27] MEDS: Saccharomyces boulardii 250 MG CAP PO SCH (09:05)
[2020-09-27] MEDS: NIFEdipine XL 30 MG TAB PO SCH (09:06)
[2020-09-27 12:00] LABS: Vancomycin, Trough 18.5 ug/mL
--- NOTE | 2020-09-27 15:16 | PDOC.HOSPP ---
- Subjective Encounter Date: 09/27/20 Encounter Time: 15:14 Subjective: 55-year-old morbidly obese female seen and examined today at the bedside. She was admitted to the hospital for sepsis suspected from dental infection. She is on IV antibiotics and she seems to be doing well. She does have a follow-up scheduled with oral surgeon as outpatient. We will continue clindamycin today. I hope to discharge home by tomorrow. - Objective Vital Signs & Weight: Vital Signs (12 hours) Temp Pulse Resp BP Pulse Ox 09/27/20 11:50 100.2 F H 85 17 141/88 H 95 09/27/20 07:26 97.5 F L 68 16 135/83 95 09/27/20 04:00 97.8 F 71 17 126/94 H 94 L Weight Admit Weight 233 lb 14.4 oz Weight 233 lb 14.4 oz I&O: 09/26/20 09/27/20 09/28/20 06:59 06:59 05:59 Intake Total 400 4190 Balance 400 4190 Result Diagrams: 09/27/20 04:37 09/27/20 04:37 Additional Labs: Accuchecks 09/27/20 09/27/20 09/26/20 10:41 05:20 17:36 POC Glucose 126 H 102 H 87 09/26/20 09/26/20 09/25/20 10:47 04:59 15:29 POC Glucose 147 H 117 H 148 H 09/25/20 09/25/20 12:54 12:05 POC Glucose 102 H 69 L Radiology Reviewed by me: Yes EKG Reviewed by me: Yes Hospitalist ROS - Review of Systems Constitutional: reports: sweats, malaise ENT: reports: mouth pain - Medication Medications: Active Medications Generic Name Dose Route Start Last Admin Trade Name Freq PRN Reason Stop Dose Admin Hydrocodone Bitart/Acetaminophen 1 tab 09/25/20 04:03 09/27/20 00:27 Hydrocodone/Acetaminophen 7.5/325 Mg Tablet PO 1 tab Q4H PRN Administration Moderate Pain (4-6) Aspirin 81 mg 09/26/20 09:00 09/27/20 09:03 Aspirin 81 Mg Enteric Coated Tablet PO 81 mg DAILY GENARO Administration Chlorhexidine Gluconate 15 ml 09/25/20 15:00 09/27/20 09:03 Chlorhexidine Gluconate 15 Ml Udcup SSP 15 ml TID GENARO Administration Enoxaparin Sodium 30 mg 09/25/20 09:00 09/27/20 09:04 Enoxaparin Sodium 30 Mg/0.3 Ml Syringe SC 30 mg 0900 GENARO Administration Ferrous Sulfate 325 mg 09/25/20 21:00 09/26/20 20:46 Ferrous Sulfate 325 Mg Tab PO 325 mg HS GENARO Administration Clindamycin Phosphate/Dextrose 50 mls @ 100 mls/hr 09/25/20 08:00 09/27/20 09:02 900 mg/ Device IVPB 50 mls 0800,1600,2359 GENARO Administration Sodium Chloride 1,000 mls @ 30 mls/hr 09/25/20 15:39 09/26/20 17:38 Normal Saline 0.9% IV 1,000 mls .Q24H GENARO Administration Insulin Glargine 10 units/ 0.1 mls @ 0 mls/hr 09/26/20 09:00 09/27/20 09:05 Miscellaneous Medication SC Not Given QAM [facility] Labetalol HCl 20 mg 09/25/20 15:57 09/26/20 20:48 Labetalol Hcl 100 Mg/20 Ml Vial SLOW IVP 20 mg Q4H PRN Administration SBP Greater Than 170 Loratadine 10 mg 09/26/20 09:00 09/27/20 09:03 Loratadine 10 Mg Tab PO 10 mg DAILY GENARO Administration Mirtazapine 15 mg 09/25/20 21:00 09/26/20 20:46 Mirtazapine 15 Mg Tab PO 15 mg HS GENARO Administration Mometasone Furoate/Formoterol Fumar 2 puff 09/25/20 18:30 09/27/20 08:04 Mometasone 200 Mcg/Formoterol 5 Mcg 120 Puff Inhaler INH 2 puff BID-RT GENARO Administration Multivitamins 1 tab 09/26/20 09:00 09/27/20 09:03 Multivit, Chewable Sf 1 Tab PO 1 tab DAILY GENARO Administration Nifedipine 30 mg 09/26/20 09:00 09/27/20 09:06 Nifedipine Xl 30 Mg Tab PO 30 mg DAILY GENARO Administration Pantoprazole Sodium 40 mg 09/26/20 09:00 09/27/20 09:03 Pantoprazole 40 Mg Tab PO 40 mg DAILY GENARO Administration Ropinirole HCl 0.5 mg 09/25/20 21:00 09/26/20 20:46 Ropinirole Hcl 1 Mg Tab PO 0.5 mg HS GENARO Administration Saccharomyces Boulardii 250 mg 09/26/20 09:00 09/27/20 09:05 Saccharomyces Boulardii 250 Mg Cap PO 250 mg DAILY GENARO Administration Sertraline HCl 150 mg 09/25/20 21:00 09/26/20 20:47 Sertraline Hcl 100 Mg Tab PO 150 mg HS GENARO Administration Simvastatin 20 mg 09/25/20 21:00 09/26/20 20:47 Simvastatin 10 Mg Tab PO 20 mg HS GENARO Administration Sodium Chloride 10 ml 09/26/20 21:00 09/27/20 09:05 Flush - Normal Saline 10 Ml Syringe IVF 10 ml Q12HR GENARO Administration - Exam Eye: PERRL ENT: normocephalic atraumatic, no oropharyngeal lesions Neck: supple, symmetric, no JVD, no lymphadenopathy Heart: RRR Respiratory: CTAB, no wheezes, no rales Gastrointestinal: soft, non-tender, non-distended, normal bowel sounds Neurological: cranial nerve grossly intact, normal sensation to touch, no focal deficits, no new deficit Psychiatric: normal affect, normal behavior, A&O x 3, oriented to person, oriented to place, oriented to time Hosp A/P (1) Asthma Code(s): J45.909 - UNSPECIFIED ASTHMA, UNCOMPLICATED Status: Acute (2) HLD (hyperlipidemia) Code(s): E78.5 - HYPERLIPIDEMIA, UNSPECIFIED Status: Acute (3) Hypertensive urgency Code(s): I16.0 - HYPERTENSIVE URGENCY Status: Acute (4) Sepsis Code(s): A41.9 - SEPSIS, UNSPECIFIED ORGANISM Status: Acute (5) Tooth infection Code(s): K04.7 - PERIAPICAL ABSCESS WITHOUT SINUS Status: Acute - Plan continue antibiotics, PT/OT, speech therapy #1. Sepsis This was present on admission but has since resolved. Suspect secondary to below. 2. Dental infection. This seems to be improving with IV antibiotics. Continue pain control.
[2020-09-27] MEDS: Labetalol HCl 100 MG/20 ML VIAL SLOW IVP PRN ×2 (15:38→20:47)
[2020-09-27] MEDS ORDERED: Vancomycin 1 GM in Premix Bag 1 BAG IVPB SCH (18:00)
[2020-09-27] MEDS: rOPINIRole HCl 1 MG TAB PO SCH (20:38)
[2020-09-27] MEDS: Ferrous Sulfate 325 MG TAB PO SCH (20:38)
[2020-09-27] MEDS: Mirtazapine 15 MG TAB PO SCH (20:41)
[2020-09-27] MEDS: Simvastatin 10 MG TAB PO SCH (20:44)
[2020-09-28] MEDS: Mometasone 200 MCG/Formoterol 5 MCG 120 PUFF INHALER INH SCH (07:08)
[2020-09-28] MEDS: Clindamycin/D5W 900 MG in Premix Bag 1 BAG IVPB SCH ×2 (08:17→17:36)
[2020-09-28] MEDS: Chlorhexidine Gluconate 15 ML UDCUP SSP SCH ×2 (08:18→17:37)
[2020-09-28] MEDS: Enoxaparin Sodium 30 MG/0.3 ML SYRINGE SC SCH (08:18)
[2020-09-28] MEDS: Multivit, Chewable SF 1 TAB PO SCH (08:19)
[2020-09-28] MEDS: NIFEdipine XL 30 MG TAB PO SCH (08:19)
[2020-09-28] MEDS: Aspirin 81 mg Enteric Coated Tablet PO SCH (08:20)
[2020-09-28] MEDS: Saccharomyces boulardii 250 MG CAP PO SCH (08:20)
[2020-09-28] MEDS: Loratadine 10 MG TAB PO SCH (08:21)
[2020-09-28] MEDS: Insulin Glargine 10 UNITS in Pre-Filled Syringe 1 EACH SC SCH (08:40)
[2020-09-28] MEDS: HYDROcodone/Acetaminophen 7.5/325 mg Tablet PO PRN (08:55)
--- NOTE | 2020-09-28 11:44 | PDOC.DS.DS ---
Provider - Provider Date of Admission: 09/25/20 00:26 Date of Discharge: 09/28/20 Admitting Provider: Judd Shah Consultations: None Primary Care Physician: SHERRY STINSON MD Course - Hospital Course Hospital Course: 55-year-old female who was admitted to the hospital for sepsis secondary to dental caries. She had presented to the hospital with facial pain and discomfort. Initially there was some concern that she has a dental abscess but she has some imaging studies that did not see any abscess. She was placed on IV antibiotics and over time she got better. She will discharge home today and complete clindamycin oral at home. Earlier today nursing staff reported some loose bowel movement and there is some concern for C. difficile colitis. We did obtain stool studies and this was negative for C. difficile. Patient otherwise is doing well and she will be discharged home today. She will resume her home breathing treatments. She has been scheduled to follow-up with dental surgeon as outpatient. Please note that her blood cultures were a contaminant. No further antibiotic treatment recommended or required. She will complete clindamycin at home. Resuscitation Status: 09/25/20 04:03 Resuscitation Status Routine Resuscitation Status: FULL: Full Resuscitation - Labs Lab Results: 09/27/20 04:37 09/27/20 04:37 Abnormal Lab Results - Last 48 hrs 09/27/20 04:37: Chloride 110 H, Carbon Dioxide 21 L, BUN 38 H, Creatinine 2.05 H, Serum Total Protein 5.7 L, Albumin 3.0 L, Albumin/Globulin Ratio 1.1 L 09/27/20 04:37: RBC 3.62 L, Hgb 10.2 L, Hct 30.1 L, Monocytes # 0.7 H Microbiology - Entire Visit 09/24/20 23:24 Venous blood - Right Hand Blood Culture - Final Coagulase Neg Staphylococcus Coagulase Neg Staphylococcus#2 09/24/20 23:15 Venous blood - Left Arm Blood Culture - Preliminary NO GROWTH AT 48 HOURS - Physical Exam Vitals: Vital Signs (12 hours) Temp Pulse Resp BP BP Pulse Ox 09/28/20 08:43 99.0 F 83 16 178/83 H 96 09/28/20 08:19 83 178/83 H 09/28/20 04:00 98.8 F 79 20 142/78 H 93 L Weight Admit Weight 233 lb 14.4 oz Weight 233 lb 14.4 oz Physical Exam: The patient was seen and examined on the day of discharge. Problem - Discharge Plan Plan of Treatment: FOCUS: Transition from Acute Care after Discharge GOAL: Successful transition to care in the community YOUR TASKS: (1) review all information outlined in your discharge packet (2) follow any instructions outlined in your discharge packet (3) contact your primary care provider if you have questions or need additional assistance See patient discharge instruction sheet for detailed teaching. Patient verbalizes understanding of medications and is able to verbalize follow-up care. See Discharge Plan for additional discharge information. Patient secured in private vehicle prior to departure. - Problem (1) Asthma Code(s): J45.909 - UNSPECIFIED ASTHMA, UNCOMPLICATED Status: Acute (2) HLD (hyperlipidemia) Code(s): E78.5 - HYPERLIPIDEMIA, UNSPECIFIED Status: Acute (3) Hypertensive urgency Code(s): I16.0 - HYPERTENSIVE URGENCY Status: Acute (4) Sepsis Code(s): A41.9 - SEPSIS, UNSPECIFIED ORGANISM Status: Acute (5) Tooth infection Code(s): K04.7 - PERIAPICAL ABSCESS WITHOUT SINUS Status: Acute Plan - Discharge Medications Prescriptions: Lactobacillus Acidophilus [Acidophilus Probiotic] 2 each PO Q8HR #30 capsule Clindamycin HCl 300 mg PO Q8HR #15 capsule Home Medications: Medication Instructions Recorded Confirmed Type Sertraline HCl 150 mg PO HS 01/24/17 09/25/20 History Ondansetron [Zofran ODT] 4 mg PO Q6HR PRN 09/27/17 09/25/20 History Mirtazapine [Remeron] 30 mg PO HS 02/03/18 09/25/20 History Esomeprazole Magnesium [NexIUM] 40 mg PO DAILY 05/20/18 09/25/20 History Aspirin [Ecotrin Low Strength] 81 mg PO DAILY 01/28/19 09/25/20 History hydrOXYzine Pamoate [Hydroxyzine 25 mg PO TID 01/28/19 09/25/20 History Pamoate] Cholecalciferol (Vitamin D3) 5,000 unit PO HS 01/29/19 09/25/20 History [Vitamin D] Ferrous Sulfate [Iron] 325 mg PO HS #30 tablet 01/30/19 09/25/20 Rx Cetirizine HCl 10 mg PO DAILY 09/25/20 09/25/20 History Fluticasone/Vilanterol [Breo 1 puff INH DAILY 09/25/20 09/25/20 History Ellipta 200-25 Mcg INH] Furosemide 40 mg PO DAILY PRN 09/25/20 09/25/20 History Losartan [Cozaar] 75 mg PO HS 09/25/20 09/25/20 History Multivit, Chewable SF 1 tab PO DAILY 09/25/20 09/25/20 History [Multivitamin, Chewable] Pravastatin Sodium 40 mg PO HS 09/25/20 09/25/20 History glipiZIDE [glipiZIDE ER] 10 mg PO BID 09/25/20 09/25/20 History rOPINIRole HCl [Ropinirole HCl] 0.5 mg PO HS 09/25/20 09/25/20 History sitaGLIPtin Phosphate [Januvia] 25 mg PO DAILY 09/25/20 09/25/20 History traMADol HCl/Acetaminophen 1 each PO Q8HR PRN 09/25/20 09/25/20 History [Tramadol-Acetaminophn 37.5-325] Clindamycin HCl 300 mg PO Q8HR #15 capsule 09/28/20 Rx Lactobacillus Acidophilus 2 each PO Q8HR #30 capsule 09/28/20 Rx [Acidophilus Probiotic] Allergies: cefuroxime axetil [From Ceftin] Allergy (Severe, Verified 02/17/20 08:47) Anaphylaxis codeine Allergy (Severe, Verified 02/17/20 08:47) Hives duloxetine HCl [From Cymbalta] Allergy (Severe, Verified 02/17/20 08:47) Hives hydralazine Allergy (Severe, Verified 02/17/20 08:47) Short of Breath SOB, swollen face, chest and back pain Penicillins Allergy (Severe, Verified 02/17/20 08:47) Anaphylaxis amoxicillin Allergy (Verified 02/17/20 08:47) ampicillin Allergy (Verified 02/17/20 08:47) atorvastatin [From Lipitor] Allergy (Verified 02/17/20 08:47) SHAKES ALL OVER, FEELS "DRUNK" Fish Containing Products Allergy (Verified 02/17/20 08:47) pregabalin [From Lyrica] Allergy (Verified 02/17/20 08:47) shellfish derived Allergy (Verified 02/17/20 08:47) Sulfa (Sulfonamide Antibiotics) Allergy (Verified 02/17/20 08:47) Nausea sulfamethoxazole [From Bactrim] Allergy (Verified 02/17/20 08:47) Nausea trimethoprim [From Bactrim] Allergy (Verified 02/17/20 08:47) Nausea gabapentin Adverse Reaction (Severe, Verified 02/17/20 08:47) causes severe depression - Discharge Instructions Discharge Instructions:: Antibiotics per Dr. Veloz Nourishment:: Heart Healthy Diet Therapies:: Home Health Equipment/Supplies:: Not Applicable IV Therapy:: Not Applicable - Follow up Plan Referrals: SHERRY STINSON MD [Primary Care Provider] - 7 Days (PLEASE FOLLOW UP WITH PRIMARY CARE PROVIDER IN 7 DAYS) Arlene Veloz DDS [Active] - 09/26/20 2:00 pm Disposition: HOME HEALTH Quality - Care Measures CORE MEASURES:: N/A
[2020-09-28 13:01] VITALS: BP 135/64; TEMP 98.2
[2020-09-28] MEDS ORDERED: Vancomycin 1 GM in Premix Bag 1 BAG IVPB SCH (18:00)
== END 2020-09-28 16:30 | disposition home health service (06) | DRG 872 ==
LOC: ERS 22:52 → 2NO 09-25 00:26
PROVIDERS: ADMIT Internal Medicine; ATTEND Hospitalist
DX: A41.9 Sepsis, unspecified organism (principal); Z68.42 Body mass index [BMI] 45.0-49.9, adult; K02.9 Dental caries, unspecified; K04.7 Periapical abscess without sinus; Z51.5 Encounter for palliative care; Z20.828 Contact with and (suspected) exposure to other viral communicable diseases; E11.65 Type 2 diabetes mellitus with hyperglycemia; I12.9 Hypertensive chronic kidney disease with stage 1 through stage 4 chronic kidney disease, or unspecified chronic kidney disease; E11.22 Type 2 diabetes mellitus with diabetic chronic kidney disease; N18.30 Chronic kidney disease, stage 3 unspecified; E66.01 Morbid (severe) obesity due to excess calories; J45.909 Unspecified asthma, uncomplicated; E78.5 Hyperlipidemia, unspecified; G47.33 Obstructive sleep apnea (adult) (pediatric); E78.1 Pure hyperglyceridemia; K21.9 Gastro-esophageal reflux disease without esophagitis; G43.909 Migraine, unspecified, not intractable, without status migrainosus; G25.81 Restless legs syndrome; F32.9 Major depressive disorder, single episode, unspecified; F41.9 Anxiety disorder, unspecified; K90.0 Celiac disease; I16.0 Hypertensive urgency; Z88.0 Allergy status to penicillin; Z88.1 Allergy status to other antibiotic agents; Z88.2 Allergy status to sulfonamides; Z88.5 Allergy status to narcotic agent; Z88.8 Allergy status to other drugs, medicaments and biological substances; Z91.013 Allergy to seafood; Z90.49 Acquired absence of other specified parts of digestive tract; Z79.82 Long term (current) use of aspirin; Z79.84 Long term (current) use of oral hypoglycemic drugs; Z79.899 Other long term (current) drug therapy; Z90.710 Acquired absence of both cervix and uterus
CPT/HCPCS: 36415; 36416; 70486; 71045; 80048; 80053; 80202; 83605; 83735; 84484; 85007; 85025; 85027; 86140; 87040; 87149; 87324; 87449; 87635; 93005; 93010; 94664; 94760; 96365; 96375; J1650; J1815; J1885; J2270; J3370; J3490; J7030; U0003

== ENCOUNTER 2021-04-14 10:42 | Outpatient (CLI) | payer OTHER | END 2021-04-14 10:43 | disposition home or self-care (01) | LOC: BICRAD 10:42 | PROVIDERS: ATTEND Family Medicine | DX: M25.552 Pain in left hip (principal) ==

== ENCOUNTER 2021-05-01 11:08 | Outpatient (CLI) | payer OTHER | END 2021-05-01 11:09 | disposition home or self-care (01) | LOC: BICMAMMO 11:08 | PROVIDERS: ATTEND Family Medicine | DX: N63.10 Unspecified lump in the right breast, unspecified quadrant (principal) | CPT/HCPCS: 77066; G0279 ==

== ENCOUNTER 2021-08-25 18:55 | Observation (INO) | payer OTHER ==
[2021-08-25 19:50] LABS: #Eosinphils 0.4 thou/uL (0.0-0.7); #Lymphocytes 2.8 thou/uL (1.20-3.40); #Monocytes 0.8 thou/uL (0.11-0.59); #Neutrophils 7.9 thou/uL (1.40-6.50); %Basophils 0.3 % (0.0-1.0); %Eosinophils 3.7 % (0.0-10.0); %Lymphocytes 23.5 % (21.0-51.0); %Monocytes 6.5 % (0.0-10.0); Hemoglobin 12.1 g/dL (12.0-16.0); Mean Corpuscular HGB CONC 35.2 g/dL (32.0-36.0); Mean Corpuscular Hemoglobin 29.2 pg (27.0-31.0); Mean Corpuscular Volume 82.9 fL (78.0-98.0); Mean Platelet Volume 7.7 fL (7.4-10.4); Platelet Count 266 thou/uL (130-400); RBC Distribution Width 12.3 % (11.5-14.5); Red Blood Cell (RBC) Count 4.14 mill/uL (4.20-5.40)
[2021-08-25 19:53] LABS: Bacteria/HPF None Seen HPF (None Seen); Bilirubin Negative (Negative); Blood, Urine 1+ (Negative); Clarity Clear (Clear); Glucose, Urine (Dipstick) Normal (Negative); Ketone, Urine Negative (Negative); Leukocyte Negative Leu/uL (Negative); Nitrite Negative (Negative); Protein, Urine (Dipstick) 100 mg/dL (Neg-Trace); Specific Gravity, Urine 1.008 (1.002-1.036); Squamous Epithelial 0-3 HPF (0-3); Urobilinogen Normal mg/dL (Less than 2); pH, Urine 5.5 (5.0-9.0)
[2021-08-25 20:14] LABS: ALT (SGPT) 17 U/L (8-55); AST (SGOT) 20 U/L (5-34); Albumin 3.8 g/dL (3.5-5.0); Alkaline Phosphatase 98 U/L (40-110); Anion Gap 17 mmol/L (10-20); BUN (Urea Nitrogen) 58 mg/dL (9.8-20.1); Bilirubin, Total 0.2 mg/dL (0.2-1.2); Calc. Creatinine Clearance 0 mL/min (70-130); Calcium 9.2 mg/dL (7.8-10.44); Carbon Dioxide 21 mmol/L (22-29); Chloride 107 mmol/L (98-107); Glucose 108 mg/dL (70-105); Potassium 4.4 mmol/L (3.5-5.1); Protein, Total 6.8 g/dL (6.0-8.3); Sodium 141 mmol/L (136-145)
[2021-08-25] MEDS ORDERED: Aspirin Chewable 81 MG TAB ONE (22:20)
[2021-08-25] MEDS ORDERED: Calcium Carbonate 500 MG ChewTAB ONE (22:20)
[2021-08-25] MEDS ORDERED: Acetaminophen 500 MG TAB ONE ×2 (22:21→22:26)
[2021-08-25 22:29] LABS: SARS-CoV-2 NAA Rapid Test Not Detected (NotDetected)
[2021-08-25] MEDS ORDERED: Enoxaparin Sodium 100 MG/ML SYRINGE ONE (23:41)
[2021-08-25] MEDS ORDERED: Clindamycin/D5W 900 mg/50 ml Premix Bag ONE (23:41)
[2021-08-26 02:32] LABS: Troponin I Less than 0.010 ng/mL (< 0.028)
[2021-08-26] MEDS ORDERED: Ondansetron PF 4 MG/2 ML Vial IVP PRN (03:45)
[2021-08-26] MEDS ORDERED: Acetaminophen 650 MG Suppository PR PRN (03:45)
[2021-08-26] MEDS ORDERED: Ondansetron ODT 4 MG TAB PO PRN (03:45)
[2021-08-26] MEDS ORDERED: Dextrose 50% Abboject 50 ML SYRINGE SLOW IVP PRN (04:13)
[2021-08-26] MEDS ORDERED: Dextrose 5% in Water 1,000 ML IV PRN (04:13)
[2021-08-26] MEDS ORDERED: HumaLOG 300 UNITS/3 ML VIAL SC PRN (04:13)
[2021-08-26 04:20] LABS: Troponin I 0.013 ng/mL (< 0.028)
[2021-08-26] MEDS ORDERED: Clindamycin/D5W 600 mg/50 ml Premix Bag ONE ×2 (06:17→14:06)
[2021-08-26] MEDS: Clindamycin/D5W 600 MG in Premix Bag 1 BAG IVPB SCH ×3 (06:21→21:29)
[2021-08-26 08:21] VITALS: BMI 44.9
[2021-08-26] MEDS ORDERED: Heparin 5,000 UNITS/ML VIAL SC SCH (09:00)
[2021-08-26] MEDS: HumaLOG 300 UNITS/3 ML VIAL SC PRN (17:44)
[2021-08-26] MEDS: Losartan 25 MG TAB PO SCH (21:02)
[2021-08-26] MEDS: Rosuvastatin 20 MG TAB PO SCH (21:02)
[2021-08-26] MEDS: Mirtazapine 15 MG TAB PO SCH (21:03)
[2021-08-27 05:04] LABS: #Basophils 0.1 thou/uL (0.0-0.2); #Eosinphils 0.5 thou/uL (0.0-0.7); #Lymphocytes 2.3 thou/uL (1.20-3.40); #Monocytes 0.8 thou/uL (0.11-0.59); #Neutrophils 6.8 thou/uL (1.40-6.50); %Basophils 0.5 % (0.0-1.0); %Eosinophils 4.7 % (0.0-10.0); %Monocytes 7.4 % (0.0-10.0); %Neutrophils 65.4 % (42.0-75.0); Hemoglobin 10.4 g/dL (12.0-16.0); Mean Corpuscular HGB CONC 33.9 g/dL (32.0-36.0); Mean Corpuscular Hemoglobin 28.2 pg (27.0-31.0); Mean Corpuscular Volume 83.2 fL (78.0-98.0); Platelet Count 231 thou/uL (130-400); RBC Distribution Width 12.3 % (11.5-14.5); Red Blood Cell (RBC) Count 3.68 mill/uL (4.20-5.40); White Blood Cell (WBC) Count 10.4 thou/uL (4.8-10.8)
[2021-08-27 05:24] LABS: Anion Gap 12 mmol/L (10-20); BUN (Urea Nitrogen) 50 mg/dL (9.8-20.1); Calc. Creatinine Clearance 45 mL/min (70-130); Calcium 8.5 mg/dL (7.8-10.44); Carbon Dioxide 22 mmol/L (22-29); Chloride 110 mmol/L (98-107); Glucose 154 mg/dL (70-105); Potassium 4.3 mmol/L (3.5-5.1); Sodium 140 mmol/L (136-145)
[2021-08-27] MEDS: Clindamycin/D5W 600 MG in Premix Bag 1 BAG IVPB SCH ×3 (05:33→21:41)
[2021-08-27] MEDS: Aspirin 81 mg Enteric Coated Tablet PO SCH (08:39)
[2021-08-27] MEDS ORDERED: NIFEdipine XL 60 MG TAB PO SCH ×2 (09:00→18:15)
[2021-08-27] MEDS ORDERED: Regadenoson 0.4 MG/5 ML SYRINGE ONE (09:00)
[2021-08-27] MEDS: Acetaminophen 325 MG TAB PO PRN ×2 (11:17→17:47)
[2021-08-27] MEDS: HumaLOG 300 UNITS/3 ML VIAL SC PRN (17:47)
[2021-08-27] MEDS: Losartan 25 MG TAB PO SCH (20:09)
[2021-08-27] MEDS: Rosuvastatin 20 MG TAB PO SCH (20:09)
[2021-08-27] MEDS: Mirtazapine 15 MG TAB PO SCH (20:09)
[2021-08-28] MEDS: Clindamycin/D5W 600 MG in Premix Bag 1 BAG IVPB SCH (06:00)
[2021-08-28] MEDS: HumaLOG 300 UNITS/3 ML VIAL SC PRN ×2 (06:14→11:05)
[2021-08-28] MEDS: Acetaminophen 325 MG TAB PO PRN (08:56)
[2021-08-28] MEDS: Aspirin 81 mg Enteric Coated Tablet PO SCH (08:56)
[2021-08-28] MEDS ORDERED: NIFEdipine XL 60 MG TAB PO SCH (09:00)
[2021-08-28 11:10] VITALS: BP 146/97; TEMP 98.5
== END 2021-08-28 13:55 | disposition home or self-care (01) ==
LOC: ERS 18:55 → ERHOLD 08-26 00:21 → 2NO 08-26 15:18
PROVIDERS: ADMIT Student in an Organized Health Care Education/Training Program; ATTEND Internal Medicine
DX: R07.89 Other chest pain (principal); R05.9 Cough, unspecified; E11.628 Type 2 diabetes mellitus with other skin complications; L03.116 Cellulitis of left lower limb; I12.9 Hypertensive chronic kidney disease with stage 1 through stage 4 chronic kidney disease, or unspecified chronic kidney disease; E11.22 Type 2 diabetes mellitus with diabetic chronic kidney disease; N18.4 Chronic kidney disease, stage 4 (severe); S91.101A Unspecified open wound of right great toe without damage to nail, initial encounter; J45.909 Unspecified asthma, uncomplicated; L40.50 Arthropathic psoriasis, unspecified; M32.9 Systemic lupus erythematosus, unspecified; M06.9 Rheumatoid arthritis, unspecified; K21.9 Gastro-esophageal reflux disease without esophagitis; E11.40 Type 2 diabetes mellitus with diabetic neuropathy, unspecified; G43.909 Migraine, unspecified, not intractable, without status migrainosus; G89.29 Other chronic pain; E66.9 Obesity, unspecified; Z68.41 Body mass index [BMI] 40.0-44.9, adult; Z20.822 Contact with and (suspected) exposure to COVID-19; Z88.0 Allergy status to penicillin; Z88.1 Allergy status to other antibiotic agents; Z88.2 Allergy status to sulfonamides; Z88.5 Allergy status to narcotic agent; Z88.8 Allergy status to other drugs, medicaments and biological substances; Z91.013 Allergy to seafood; Z79.82 Long term (current) use of aspirin; Z79.51 Long term (current) use of inhaled steroids; Z79.84 Long term (current) use of oral hypoglycemic drugs; Z79.899 Other long term (current) drug therapy; Z87.891 Personal history of nicotine dependence; X58.XXXA Exposure to other specified factors, initial encounter
CPT/HCPCS: 36415; 36416; 71045; 78451; 78452; 80048; 80053; 81003; 81015; 84484; 85025; 85379; 93005; 93017; 96376; A9500; A9540; G0378; J1650; J1815; J2785; J3490; U0002

== ENCOUNTER 2021-10-07 16:02 | Inpatient (IN) | payer OTHER ==
[2021-10-07 17:10] LABS: #Eosinphils 0.1 thou/uL (0.0-0.7); #Lymphocytes 0.7 thou/uL (1.20-3.40); #Monocytes 0.5 thou/uL (0.11-0.59); #Neutrophils 11.7 thou/uL (1.40-6.50); %Basophils 0.1 % (0.0-1.0); %Eosinophils 0.4 % (0.0-10.0); %Lymphocytes 5.7 % (21.0-51.0); %Monocytes 4.1 % (0.0-10.0); %Neutrophils 89.7 % (42.0-75.0); Mean Corpuscular HGB CONC 33.4 g/dL (32.0-36.0); Mean Corpuscular Hemoglobin 28.1 pg (27.0-31.0); Mean Corpuscular Volume 84.3 fL (78.0-98.0); Mean Platelet Volume 7.3 fL (7.4-10.4); Platelet Count 218 thou/uL (130-400); RBC Distribution Width 11.9 % (11.5-14.5); Red Blood Cell (RBC) Count 3.55 mill/uL (4.20-5.40); White Blood Cell (WBC) Count 13.1 thou/uL (4.8-10.8)
[2021-10-07] MEDS ORDERED: Nitroglycerin 2% Ointment 1 INCH/1 GM Packet ONE (17:18)
[2021-10-07 17:41] LABS: ALT (SGPT) 18 U/L (8-55); AST (SGOT) 21 U/L (5-34); Albumin 3.2 g/dL (3.5-5.0); Alkaline Phosphatase 99 U/L (40-110); Anion Gap 16 mmol/L (10-20); BUN (Urea Nitrogen) 45 mg/dL (9.8-20.1); Bilirubin, Total 0.2 mg/dL (0.2-1.2); Calc. Creatinine Clearance 0 mL/min (70-130); Calcium 8.2 mg/dL (7.8-10.44); Carbon Dioxide 18 mmol/L (22-29); Chloride 112 mmol/L (98-107); Globulin 2.6 g/dL (2.4-3.5); Glucose 279 mg/dL (70-105); Potassium 4.5 mmol/L (3.5-5.1); Protein, Total 5.8 g/dL (6.0-8.3); Sodium 141 mmol/L (136-145)
[2021-10-07 18:02] LABS: CKMB 6.7 ng/mL (0-6.6)
[2021-10-07] MEDS ORDERED: Enoxaparin Sodium 30 MG/0.3 ML SYRINGE ONE (18:03)
[2021-10-07] MEDS ORDERED: Enoxaparin Sodium 80 MG/0.8 ML SYRINGE ONE (18:03)
[2021-10-07] MEDS ORDERED: Labetalol HCl 100 MG/20 ML VIAL SLOW IVP SCH (18:15)
[2021-10-07] MEDS ORDERED: Labetalol HCl 100 MG/20 ML VIAL ONE (19:06)
[2021-10-07] MEDS ORDERED: Senokot S 8.6-50 MG TAB PO PRN (19:27)
[2021-10-07] MEDS ORDERED: Guaifenesin DM 100-10/5 ML UDCUP PO PRN (19:27)
[2021-10-07] MEDS ORDERED: Bisacodyl 5 MG TAB PO PRN (19:27)
[2021-10-07] MEDS ORDERED: Ondansetron PF 4 MG/2 ML Vial IVP PRN (19:27)
[2021-10-07] MEDS ORDERED: hydrOXYzine Pamoate 25 mg Capsule PO PRN (19:31)
[2021-10-07] MEDS ORDERED: Labetalol HCl 100 MG/20 ML VIAL SLOW IVP PRN (19:41)
[2021-10-07] MEDS ORDERED: Furosemide 20 MG/2 ML VIAL SLOW IVP SCH (20:00)
[2021-10-07] MEDS ORDERED: Dextrose 5% in Water 1,000 ML IV PRN (20:21)
[2021-10-07] MEDS ORDERED: Dextrose 50% Abboject 50 ML SYRINGE SLOW IVP PRN (20:21)
[2021-10-07 20:39] LABS: Troponin I 0.943 ng/mL (< 0.028)
[2021-10-07] MEDS ORDERED: Rosuvastatin 10 MG TAB PO SCH (21:00)
[2021-10-07] MEDS: Mirtazapine 15 MG TAB PO SCH (22:00)
[2021-10-07] MEDS: cloNIDine 0.1 MG TAB PO SCH (22:02)
[2021-10-07] MEDS: rOPINIRole HCl 1 MG TAB PO SCH (22:03)
[2021-10-07] MEDS: Acetaminophen 325 MG TAB PO PRN (23:09)
[2021-10-07] MEDS: Pantoprazole 40 MG VIAL IVP SCH (23:11)
[2021-10-07 23:54] LABS: Troponin I 1.403 ng/mL (< 0.028)
[2021-10-08] MEDS: Nitroglycerin 0.4 MG TAB (25 Tab Bottle) SL PRN (00:51)
[2021-10-08] MEDS ORDERED: Furosemide 20 MG/2 ML VIAL SLOW IVP SCH (06:00)
[2021-10-08 06:35] LABS: #Eosinphils 0.2 thou/uL (0.0-0.7); #Lymphocytes 2.4 thou/uL (1.20-3.40); #Monocytes 0.4 thou/uL (0.11-0.59); #Neutrophils 6.3 thou/uL (1.40-6.50); %Basophils 0.2 % (0.0-1.0); %Eosinophils 2.1 % (0.0-10.0); %Lymphocytes 25.2 % (21.0-51.0); %Monocytes 4.6 % (0.0-10.0); Hemoglobin 8.9 g/dL (12.0-16.0); Mean Corpuscular Hemoglobin 28.7 pg (27.0-31.0); Mean Corpuscular Volume 84.5 fL (78.0-98.0); Mean Platelet Volume 7.9 fL (7.4-10.4); Platelet Count 189 thou/uL (130-400); RBC Distribution Width 11.8 % (11.5-14.5); Red Blood Cell (RBC) Count 3.08 mill/uL (4.20-5.40); White Blood Cell (WBC) Count 9.3 thou/uL (4.8-10.8)
[2021-10-08 06:43] LABS: Hemoglobin A1c 6.1 % (4.0-6.0)
[2021-10-08 06:58] LABS: ALT (SGPT) 18 U/L (8-55); AST (SGOT) 23 U/L (5-34); Albumin 2.9 g/dL (3.5-5.0); Alkaline Phosphatase 83 U/L (40-110); Anion Gap 14 mmol/L (10-20); BUN (Urea Nitrogen) 48 mg/dL (9.8-20.1); Bilirubin, Total 0.2 mg/dL (0.2-1.2); Calc. Creatinine Clearance 34 mL/min (70-130); Calcium 8.3 mg/dL (7.8-10.44); Carbon Dioxide 19 mmol/L (22-29); Cardiac Risk 7.9 (Less than 4.5); Chloride 113 mmol/L (98-107); Cholesterol 245 mg/dl (< 200 Desired); Globulin 2.8 g/dL (2.4-3.5); Glucose 110 mg/dL (70-105); HDL Cholesterol 31 mg/dL (>60 Neg Risk); LDL Cholesterol, Calculated 149 mg/dL; Potassium 3.9 mmol/L (3.5-5.1); Protein, Total 5.7 g/dL (6.0-8.3); Sodium 142 mmol/L (136-145); Triglycerides 325 mg/dL (Less than 150)
[2021-10-08] MEDS: cloNIDine 0.1 MG TAB PO SCH ×3 (08:24→20:42)
[2021-10-08 08:49] LABS: Bilirubin Negative (Negative); Blood, Urine Moderate (Negative); Glucose, Urine (Dipstick) Negative (Negative); Ketone, Urine Negative (Negative); Leukocyte Trace (Negative); Nitrite Negative (Negative); Protein, Urine (Dipstick) > or equal to 300 mg/dL (Neg-Trace); Specific Gravity, Urine 1.025 (1.005-1.030); Urobilinogen 0.2 mg/dL (Less than 2); pH, Urine 5.5 (5.0-9.0)
[2021-10-08 08:54] LABS: Clarity Hazy (Clear)
[2021-10-08 08:55] LABS: WBC/HPF 0-3 HPF (0-3)
[2021-10-08 08:56] LABS: Bacteria/HPF Rare-Few HPF (None Seen)
[2021-10-08 08:57] LABS: Urine Culture Reflex No No
[2021-10-08 09:57] LABS: Creatinine, Urine 67.94 mg/dL (47-110)
[2021-10-08 12:30] LABS: SARS-CoV-2 PCR by NAA Not Detected (NotDetected)
[2021-10-08] MEDS ORDERED: Aspirin 325 mg Enteric Coated Tablet PO SCH (15:15)
[2021-10-08] MEDS ORDERED: Carvedilol 3.125 MG TAB PO SCH (15:15)
[2021-10-08] MEDS: Carvedilol 3.125 MG TAB PO SCH (15:36)
[2021-10-08 16:30] LABS: Hemoglobin 9.2 g/dL (12.0-16.0); Platelet Count 201 thou/uL (130-400)
[2021-10-08 17:13] LABS: Critical Call Chem Troponin I RESULT DECREASING; Troponin I 0.769 ng/mL (< 0.028)
[2021-10-08] MEDS: Heparin 10,000 UNITS/ 10 ML VIAL SLOW IVP SCH (17:28)
[2021-10-08] MEDS: Heparin 25,000 units/D5W 500 ML IVPB SCH (17:29)
[2021-10-08] MEDS: Mirtazapine 15 MG TAB PO SCH (20:42)
[2021-10-08] MEDS: Rosuvastatin 10 MG TAB PO SCH (20:42)
[2021-10-08] MEDS: rOPINIRole HCl 1 MG TAB PO SCH (20:42)
[2021-10-08] MEDS: Pantoprazole 40 MG VIAL IVP SCH (21:40)
[2021-10-09] MEDS: Heparin 10,000 UNITS/ 10 ML VIAL SLOW IVP SCH ×2 (01:27→15:44)
[2021-10-09] MEDS: traMADol HCl 50 MG TAB PO PRN (08:29)
[2021-10-09] MEDS: Aspirin 325 mg Enteric Coated Tablet PO SCH (08:29)
[2021-10-09] MEDS: cloNIDine 0.1 MG TAB PO SCH ×3 (08:29→20:45)
[2021-10-09] MEDS: Acetaminophen 325 MG TAB PO PRN (08:29)
[2021-10-09] MEDS: Carvedilol 3.125 MG TAB PO SCH ×2 (08:29→16:51)
[2021-10-09 08:31] LABS: Anion Gap 12 mmol/L (10-20); BUN (Urea Nitrogen) 49 mg/dL (9.8-20.1); Calc. Creatinine Clearance 30 mL/min (70-130); Calcium 8.2 mg/dL (7.8-10.44); Carbon Dioxide 20 mmol/L (22-29); Chloride 110 mmol/L (98-107); Glucose 117 mg/dL (70-105); Potassium 4.2 mmol/L (3.5-5.1); Sodium 138 mmol/L (136-145)
[2021-10-09] MEDS: Nitroglycerin 0.4 MG TAB (25 Tab Bottle) SL PRN ×3 (14:07→14:29)
[2021-10-09] MEDS: Heparin 25,000 units/D5W 500 ML IVPB SCH (14:20)
[2021-10-09] MEDS ORDERED: Morphine 2 MG/ML VIAL SLOW IVP PRN (14:26)
[2021-10-09] MEDS: Morphine 4 MG/ML VIAL SLOW IVP PRN (14:51)
[2021-10-09] MEDS ORDERED: Morphine 4 MG/ML VIAL SLOW IVP PRN (15:00)
[2021-10-09 15:24] LABS: INR-International Normal Ratio 1.2; Prothrombin Time 15.3 sec (12.0-14.7)
[2021-10-09 15:25] LABS: PTT 58.6 sec (22.9-36.1)
[2021-10-09] MEDS: HumaLOG 300 UNITS/3 ML VIAL SC PRN (16:53)
[2021-10-09] MEDS: rOPINIRole HCl 1 MG TAB PO SCH (20:44)
[2021-10-09] MEDS: Mirtazapine 15 MG TAB PO SCH (20:46)
[2021-10-09] MEDS: Rosuvastatin 10 MG TAB PO SCH (20:47)
[2021-10-10] MEDS: Acetaminophen 325 MG TAB PO PRN ×2 (02:29→15:17)
[2021-10-10] MEDS: Nitroglycerin 0.4 MG TAB (25 Tab Bottle) SL PRN ×3 (02:31→07:54)
[2021-10-10] MEDS: traMADol HCl 50 MG TAB PO PRN (02:33)
[2021-10-10 05:15] LABS: #Eosinphils 0.2 thou/uL (0.0-0.7); #Monocytes 0.4 thou/uL (0.11-0.59); #Neutrophils 5.3 thou/uL (1.40-6.50); %Basophils 0.2 % (0.0-1.0); %Lymphocytes 24.6 % (21.0-51.0); %Monocytes 5.2 % (0.0-10.0); %Neutrophils 66.9 % (42.0-75.0); Mean Corpuscular HGB CONC 32.9 g/dL (32.0-36.0); Mean Corpuscular Hemoglobin 28.2 pg (27.0-31.0); Mean Corpuscular Volume 85.5 fL (78.0-98.0); Mean Platelet Volume 8.1 fL (7.4-10.4); Platelet Count 185 thou/uL (130-400); Red Blood Cell (RBC) Count 3.21 mill/uL (4.20-5.40)
[2021-10-10 05:35] LABS: Anion Gap 14 mmol/L (10-20); BUN (Urea Nitrogen) 52 mg/dL (9.8-20.1); Calc. Creatinine Clearance 30 mL/min (70-130); Calcium 8.1 mg/dL (7.8-10.44); Carbon Dioxide 17 mmol/L (22-29); Chloride 110 mmol/L (98-107); Glucose 131 mg/dL (70-105); Magnesium 1.5 mg/dL (1.6-2.6); Phosphorus 6.1 mg/dL (2.3-4.7); Potassium 4.3 mmol/L (3.5-5.1); Sodium 137 mmol/L (136-145)
[2021-10-10 07:08] LABS: Hep B Core Total Ab Non-Reactive (NonReactive); Hep B Core Total Index 0.05 S/CO (0-0.79)
[2021-10-10 07:09] LABS: HBSAB Concentration Less than 8.00 mIU/mL; HBSAg Index 0.21 S/CO (0-0.99); Hep B Surf AB Non-Reactive (NonReactive); Hep B Surf Ag Non-Reactive S/CO (NonReactive)
[2021-10-10 07:11] LABS: Hep C IgG Ab Non-Reactive (NonReactive); Hep C Index 0.06 S/CO (0-0.79)
[2021-10-10] MEDS: Heparin 25,000 units/D5W 500 ML IVPB SCH (07:47)
[2021-10-10] MEDS: Carvedilol 3.125 MG TAB PO SCH ×2 (07:54→17:56)
[2021-10-10] MEDS: Aspirin 325 mg Enteric Coated Tablet PO SCH (08:50)
[2021-10-10] MEDS ORDERED: Heparin 10,000 UNITS/ 10 ML VIAL ONE (09:41)
[2021-10-10] MEDS ORDERED: Lidocaine 1% (PF) 30 ML VIAL ONE (09:44)
[2021-10-10] MEDS: cloNIDine 0.1 MG TAB PO SCH ×3 (09:51→21:49)
[2021-10-10] MEDS ORDERED: Tuberculin PPD 0.1 ML VIAL I-DERMAL SCH (12:00)
[2021-10-10] MEDS ORDERED: Amlodipine 10 MG TAB PO SCH (15:00)
[2021-10-10] MEDS: EPOETIN ALFA-EPBX (ESRD) 10,000 UNIT/ML VIAL IVP SCH (15:48)
[2021-10-10 17:43] LABS: Hemoglobin 10.1 g/dL (12.0-16.0); Platelet Count 249 thou/uL (130-400)
[2021-10-10 18:22] LABS: PTT Greater than 250.0 sec (22.9-36.1)
[2021-10-10] MEDS: rOPINIRole HCl 1 MG TAB PO SCH (21:47)
[2021-10-10] MEDS: Mirtazapine 15 MG TAB PO SCH (21:48)
[2021-10-10] MEDS: Rosuvastatin 10 MG TAB PO SCH (21:49)
[2021-10-11 04:15] LABS: #Eosinphils 0.2 thou/uL (0.0-0.7); #Lymphocytes 1.6 thou/uL (1.20-3.40); #Monocytes 0.6 thou/uL (0.11-0.59); #Neutrophils 7.2 thou/uL (1.40-6.50); %Basophils 0.2 % (0.0-1.0); %Eosinophils 2.3 % (0.0-10.0); %Lymphocytes 16.6 % (21.0-51.0); %Monocytes 5.8 % (0.0-10.0); %Neutrophils 75.1 % (42.0-75.0); Hemoglobin 9.4 g/dL (12.0-16.0); Mean Corpuscular HGB CONC 34.5 g/dL (32.0-36.0); Mean Corpuscular Hemoglobin 29.2 pg (27.0-31.0); Mean Corpuscular Volume 84.5 fL (78.0-98.0); Platelet Count 223 thou/uL (130-400); RBC Distribution Width 11.9 % (11.5-14.5); Red Blood Cell (RBC) Count 3.24 mill/uL (4.20-5.40); White Blood Cell (WBC) Count 9.6 thou/uL (4.8-10.8)
[2021-10-11 04:34] LABS: Anion Gap 13 mmol/L (10-20); BUN (Urea Nitrogen) 40 mg/dL (9.8-20.1); Calc. Creatinine Clearance 36 mL/min (70-130); Calcium 8.2 mg/dL (7.8-10.44); Carbon Dioxide 23 mmol/L (22-29); Chloride 105 mmol/L (98-107); Glucose 135 mg/dL (70-105); Sodium 137 mmol/L (136-145)
[2021-10-11] MEDS: Heparin 10,000 UNITS/ 10 ML VIAL SLOW IVP SCH ×2 (05:31→18:14)
[2021-10-11] MEDS: Carvedilol 3.125 MG TAB PO SCH ×2 (08:09→17:33)
[2021-10-11] MEDS: Amlodipine 10 MG TAB PO SCH (08:10)
[2021-10-11] MEDS: Aspirin 325 mg Enteric Coated Tablet PO SCH (08:10)
[2021-10-11] MEDS: cloNIDine 0.1 MG TAB PO SCH ×3 (08:10→20:48)
[2021-10-11] MEDS ORDERED: Heparin 10,000 UNITS/ 10 ML VIAL ONE (09:41)
[2021-10-11] MEDS: Heparin 25,000 units/D5W 500 ML IVPB SCH (14:55)
[2021-10-11] MEDS: Rosuvastatin 10 MG TAB PO SCH (20:44)
[2021-10-11] MEDS: Mirtazapine 15 MG TAB PO SCH (20:44)
[2021-10-11] MEDS: rOPINIRole HCl 1 MG TAB PO SCH (20:48)
[2021-10-11 23:37] LABS: PTT 117.7 sec (22.9-36.1)
[2021-10-12 03:56] LABS: #Eosinphils 0.2 thou/uL (0.0-0.7); #Lymphocytes 2.2 thou/uL (1.20-3.40); #Monocytes 0.7 thou/uL (0.11-0.59); #Neutrophils 6.9 thou/uL (1.40-6.50); %Basophils 0.4 % (0.0-1.0); %Eosinophils 2.2 % (0.0-10.0); %Lymphocytes 21.6 % (21.0-51.0); %Neutrophils 68.8 % (42.0-75.0); Hemoglobin 9.2 g/dL (12.0-16.0); Mean Corpuscular HGB CONC 34.4 g/dL (32.0-36.0); Mean Corpuscular Hemoglobin 29.1 pg (27.0-31.0); Mean Corpuscular Volume 84.5 fL (78.0-98.0); Mean Platelet Volume 7.9 fL (7.4-10.4); Platelet Count 226 thou/uL (130-400); RBC Distribution Width 12.1 % (11.5-14.5); Red Blood Cell (RBC) Count 3.17 mill/uL (4.20-5.40)
[2021-10-12 04:18] LABS: Anion Gap 14 mmol/L (10-20); BUN (Urea Nitrogen) 25 mg/dL (9.8-20.1); Calc. Creatinine Clearance 40 mL/min (70-130); Calcium 8.4 mg/dL (7.8-10.44); Carbon Dioxide 26 mmol/L (22-29); Chloride 100 mmol/L (98-107); Glucose 157 mg/dL (70-105); Potassium 3.5 mmol/L (3.5-5.1); Sodium 136 mmol/L (136-145)
[2021-10-12] MEDS: Heparin 25,000 units/D5W 500 ML IVPB SCH (08:37)
[2021-10-12] MEDS: Aspirin 325 mg Enteric Coated Tablet PO SCH (08:38)
[2021-10-12] MEDS: cloNIDine 0.1 MG TAB PO SCH ×3 (08:38→23:38)
[2021-10-12] MEDS: Carvedilol 3.125 MG TAB PO SCH ×2 (08:38→16:20)
[2021-10-12] MEDS: Amlodipine 10 MG TAB PO SCH (08:38)
[2021-10-12] MEDS ORDERED: Heparin 10,000 UNITS/ 10 ML VIAL ONE (09:36)
[2021-10-12 15:52] LABS: Hemoglobin 9.9 g/dL (12.0-16.0); Platelet Count 215 thou/uL (130-400)
[2021-10-12] MEDS: Rosuvastatin 10 MG TAB PO SCH (23:38)
[2021-10-12] MEDS: Mirtazapine 15 MG TAB PO SCH (23:38)
[2021-10-12] MEDS: rOPINIRole HCl 1 MG TAB PO SCH (23:39)
[2021-10-13] MEDS: Heparin 25,000 units/D5W 500 ML IVPB SCH (03:46)
[2021-10-13] MEDS ORDERED: Communication Order-Pharmacy FS SCH (08:15)
[2021-10-13] MEDS: Carvedilol 3.125 MG TAB PO SCH ×2 (08:57→16:31)
[2021-10-13] MEDS: cloNIDine 0.1 MG TAB PO SCH ×3 (08:57→21:13)
[2021-10-13] MEDS: Aspirin 325 mg Enteric Coated Tablet PO SCH (08:57)
[2021-10-13] MEDS: Amlodipine 10 MG TAB PO SCH (08:57)
[2021-10-13] MEDS: EPOETIN ALFA-EPBX (ESRD) 10,000 UNIT/ML VIAL IVP SCH (13:51)
[2021-10-13] MEDS: HumaLOG 300 UNITS/3 ML VIAL SC PRN (13:51)
[2021-10-13] MEDS ORDERED: Cosyntropin 250 MCG VIAL SLOW IVP SCH (17:30)
[2021-10-13] MEDS: Mirtazapine 15 MG TAB PO SCH (21:10)
[2021-10-13] MEDS: rOPINIRole HCl 1 MG TAB PO SCH (21:11)
[2021-10-13] MEDS: Rosuvastatin 10 MG TAB PO SCH (21:11)
[2021-10-14 06:27] LABS: Anion Gap 15 mmol/L (10-20); BUN (Urea Nitrogen) 24 mg/dL (9.8-20.1); Calc. Creatinine Clearance 28 mL/min (70-130); Calcium 9.1 mg/dL (7.8-10.44); Carbon Dioxide 26 mmol/L (22-29); Chloride 100 mmol/L (98-107); Glucose 199 mg/dL (70-105); Potassium 3.6 mmol/L (3.5-5.1); Sodium 137 mmol/L (136-145)
[2021-10-14] MEDS: Carvedilol 3.125 MG TAB PO SCH ×2 (07:36→19:21)
[2021-10-14] MEDS ORDERED: Lidocaine 1% (PF) 30 ML VIAL ONE (08:51)
[2021-10-14] MEDS ORDERED: Heparin 10,000 UNITS/ 10 ML VIAL ONE ×3 (08:51→11:40)
[2021-10-14] MEDS ORDERED: Fentanyl 100 MCG/2 ML VIAL ONE (10:06)
[2021-10-14] MEDS ORDERED: Midazolam HCl 2 mg/2 ml Vial ONE ×2 (10:06→12:10)
[2021-10-14] MEDS ORDERED: Iopamidol 370 76% 100 ML VIAL ONE (10:21)
[2021-10-14] MEDS ORDERED: Iopamidol 370 76% 50 ML VIAL FS ONE (10:21)
[2021-10-14] MEDS ORDERED: Clopidogrel Bisulfate 300 MG TAB ONE (11:01)
[2021-10-14] MEDS ORDERED: Nitroglycerin 100MG/250ML BOT 250 ML ONE (11:03)
[2021-10-14] MEDS ORDERED: Adenosine 6 MG/2 ML VIAL ONE (11:22)
[2021-10-14] MEDS ORDERED: Ondansetron PF 4 MG/2 ML Vial ONE (11:22)
[2021-10-14] MEDS ORDERED: Fentanyl 250 MCG/5 ML VIAL ONE (12:14)
[2021-10-14] MEDS ORDERED: Midazolam HCl 5 mg/5 ml Vial ONE (12:14)
[2021-10-14] MEDS ORDERED: Dexmedetomidine 200 MCG/2 ML VIAL ONE (12:15)
[2021-10-14] MEDS ORDERED: Sodium Chloride 0.9% 1,000 ML IV SCH (12:30)
[2021-10-14] MEDS ORDERED: Heparin 10,000 UNITS/1 ML VIAL 30,000 UNITS in Sodium Chloride 0.9% 1,000 ML FS SCH (12:45)
[2021-10-14] MEDS ORDERED: Amlodipine 5 MG TAB ONE (14:24)
[2021-10-14] MEDS ORDERED: cloNIDine 0.1 MG TAB ONE (14:25)
[2021-10-14] MEDS: Amlodipine 10 MG TAB PO SCH (14:30)
[2021-10-14] MEDS: cloNIDine 0.1 MG TAB PO SCH ×3 (14:30→21:37)
[2021-10-14] MEDS ORDERED: traMADol HCl 50 MG TAB ONE (15:19)
[2021-10-14] MEDS: traMADol HCl 50 MG TAB PO PRN (15:26)
[2021-10-14 15:45] LABS: Hemoglobin 9.7 g/dL (12.0-16.0); Platelet Count 191 thou/uL (130-400)
[2021-10-14] MEDS ORDERED: Morphine 4 MG/ML VIAL ONE ×2 (18:20→23:11)
[2021-10-14] MEDS: Morphine 4 MG/ML VIAL SLOW IVP PRN ×2 (18:24→23:15)
[2021-10-14] MEDS ORDERED: Carvedilol 6.25 MG TAB ONE (19:17)
[2021-10-14] MEDS ORDERED: Rosuvastatin 10 MG TAB PO SCH (21:00)
[2021-10-14] MEDS: Mirtazapine 15 MG TAB PO SCH (21:11)
[2021-10-14] MEDS: rOPINIRole HCl 1 MG TAB PO SCH (21:12)
[2021-10-14] MEDS: Aspirin 325 mg Enteric Coated Tablet PO SCH (21:37)
[2021-10-14] MEDS ORDERED: Sodium Chloride 0.9% 50 ML ONE (23:12)
[2021-10-15 04:32] LABS: #Eosinphils 0.3 thou/uL (0.0-0.7); #Lymphocytes 1.6 thou/uL (1.20-3.40); #Monocytes 0.7 thou/uL (0.11-0.59); #Neutrophils 6.9 thou/uL (1.40-6.50); %Basophils 0.3 % (0.0-1.0); %Eosinophils 2.8 % (0.0-10.0); %Lymphocytes 16.6 % (21.0-51.0); %Neutrophils 73.3 % (42.0-75.0); Hemoglobin 8.4 g/dL (12.0-16.0); Mean Corpuscular HGB CONC 35.1 g/dL (32.0-36.0); Mean Corpuscular Hemoglobin 29.5 pg (27.0-31.0); Mean Corpuscular Volume 83.9 fL (78.0-98.0); Platelet Count 190 thou/uL (130-400); RBC Distribution Width 12.6 % (11.5-14.5); Red Blood Cell (RBC) Count 2.85 mill/uL (4.20-5.40); White Blood Cell (WBC) Count 9.4 thou/uL (4.8-10.8)
[2021-10-15 04:52] LABS: ALT (SGPT) 16 U/L (8-55); AST (SGOT) 24 U/L (5-34); Albumin 2.8 g/dL (3.5-5.0); Alkaline Phosphatase 73 U/L (40-110); Anion Gap 12 mmol/L (10-20); BUN (Urea Nitrogen) 26 mg/dL (9.8-20.1); Bilirubin, Total 0.3 mg/dL (0.2-1.2); Calc. Creatinine Clearance 28 mL/min (70-130); Calcium 8.7 mg/dL (7.8-10.44); Carbon Dioxide 24 mmol/L (22-29); Chloride 102 mmol/L (98-107); Globulin 2.6 g/dL (2.4-3.5); Glucose 170 mg/dL (70-105); Potassium 3.9 mmol/L (3.5-5.1); Protein, Total 5.4 g/dL (6.0-8.3); Sodium 134 mmol/L (136-145)
[2021-10-15] MEDS ORDERED: HumaLOG 300 UNITS/3 ML VIAL ONE (05:29)
[2021-10-15] MEDS: HumaLOG 300 UNITS/3 ML VIAL SC PRN ×3 (05:53→21:52)
[2021-10-15] MEDS ORDERED: traMADol HCl 50 MG TAB ONE (06:02)
[2021-10-15] MEDS ORDERED: Acetaminophen 325 MG TAB ONE (06:02)
[2021-10-15] MEDS: Acetaminophen 325 MG TAB PO PRN ×2 (06:03→20:45)
[2021-10-15] MEDS: traMADol HCl 50 MG TAB PO PRN ×2 (06:03→20:45)
[2021-10-15] MEDS: Carvedilol 3.125 MG TAB PO SCH ×2 (07:49→17:40)
[2021-10-15] MEDS: Clopidogrel Bisulfate 75 MG TAB PO SCH (07:49)
[2021-10-15] MEDS: Aspirin 325 mg Enteric Coated Tablet PO SCH (07:49)
[2021-10-15] MEDS: cloNIDine 0.1 MG TAB PO SCH ×3 (07:49→20:47)
[2021-10-15] MEDS: Amlodipine 10 MG TAB PO SCH (07:49)
[2021-10-15] MEDS ORDERED: Heparin 10,000 UNITS/ 10 ML VIAL ONE (10:33)
[2021-10-15] MEDS: EPOETIN ALFA-EPBX (ESRD) 10,000 UNIT/ML VIAL IVP SCH (14:54)
[2021-10-15] MEDS: Mirtazapine 15 MG TAB PO SCH (20:46)
[2021-10-15] MEDS: Rosuvastatin 20 MG TAB PO SCH (20:46)
[2021-10-15] MEDS: rOPINIRole HCl 1 MG TAB PO SCH (20:47)
[2021-10-16] MEDS: Carvedilol 3.125 MG TAB PO SCH ×2 (08:55→17:31)
[2021-10-16] MEDS ORDERED: Sodium Chloride 0.9% 20 ML ONE (09:37)
[2021-10-16] MEDS ORDERED: Lidocaine 1% w/Epinephrine 1:100K 20 ML VIAL ONE (09:37)
[2021-10-16] MEDS ORDERED: Heparin 10,000 UNITS/ 10 ML VIAL ONE (09:37)
[2021-10-16] MEDS ORDERED: Heparin 5,000 UNITS/ML VIAL ONE (09:37)
[2021-10-16] MEDS ORDERED: Protamine Sulfate 50 MG/5 ML VIAL ONE (09:37)
[2021-10-16] MEDS ORDERED: Bupivacaine 0.25% HCL 30 ML VIAL ONE (09:37)
[2021-10-16] MEDS ORDERED: Fentanyl 100 MCG/2 ML VIAL ONE (12:00)
[2021-10-16] MEDS ORDERED: Levofloxacin 500 mg/D5W 100 ml Premix Bag ONE (12:01)
[2021-10-16] MEDS ORDERED: Propofol 500 MG/50 ML VIAL ONE (12:03)
[2021-10-16] MEDS ORDERED: Propofol 1,000 MG/100 ML VIAL IV ONE (12:03)
[2021-10-16 12:04] LABS: SARS-CoV-2 PCR by NAA Not Detected (NotDetected)
[2021-10-16] MEDS ORDERED: Bupivacaine HCl 0.5%/Epinephrine 1:200,000/PF 30 ml Vial ONE (12:10)
[2021-10-16] MEDS ORDERED: Lidocaine 1% PF 5 ML VIAL ONE (12:10)
[2021-10-16] MEDS ORDERED: Ondansetron PF 4 MG/2 ML Vial ONE (12:10)
[2021-10-16 16:13] LABS: Hemoglobin 7.7 g/dL (12.0-16.0); Platelet Count 141 thou/uL (130-400)
[2021-10-16] MEDS: cloNIDine 0.1 MG TAB PO SCH ×3 (16:15→21:36)
[2021-10-16] MEDS: Aspirin 325 mg Enteric Coated Tablet PO SCH (16:15)
[2021-10-16] MEDS: Amlodipine 10 MG TAB PO SCH (16:15)
[2021-10-16] MEDS: Ezetimibe 10 MG TAB PO SCH (16:16)
[2021-10-16] MEDS: Clopidogrel Bisulfate 75 MG TAB PO SCH (16:16)
[2021-10-16] MEDS: HumaLOG 300 UNITS/3 ML VIAL SC PRN (17:59)
[2021-10-16] MEDS: Mirtazapine 15 MG TAB PO SCH (21:37)
[2021-10-16] MEDS: Rosuvastatin 20 MG TAB PO SCH (21:38)
[2021-10-16] MEDS: rOPINIRole HCl 1 MG TAB PO SCH (21:39)
[2021-10-17] MEDS: Acetaminophen 325 MG TAB PO PRN ×3 (05:21→20:48)
[2021-10-17 06:02] LABS: Anion Gap 14 mmol/L (10-20); BUN (Urea Nitrogen) 25 mg/dL (9.8-20.1); Calc. Creatinine Clearance 21 mL/min (70-130); Calcium 8.5 mg/dL (7.8-10.44); Carbon Dioxide 25 mmol/L (22-29); Chloride 98 mmol/L (98-107); Glucose 183 mg/dL (70-105); Potassium 3.9 mmol/L (3.5-5.1); Sodium 133 mmol/L (136-145)
[2021-10-17 06:21] LABS: #Eosinphils 0.3 thou/uL (0.0-0.7); #Lymphocytes 2.1 thou/uL (1.20-3.40); %Basophils 0.2 % (0.0-1.0); %Eosinophils 2.5 % (0.0-10.0); %Lymphocytes 16.9 % (21.0-51.0); %Monocytes 7.7 % (0.0-10.0); %Neutrophils 72.8 % (42.0-75.0); Hemoglobin 8.4 g/dL (12.0-16.0); Mean Corpuscular HGB CONC 34.6 g/dL (32.0-36.0); Mean Corpuscular Hemoglobin 29.2 pg (27.0-31.0); Mean Corpuscular Volume 84.4 fL (78.0-98.0); Mean Platelet Volume 7.8 fL (7.4-10.4); Platelet Count 194 thou/uL (130-400); RBC Distribution Width 12.9 % (11.5-14.5); Red Blood Cell (RBC) Count 2.88 mill/uL (4.20-5.40); White Blood Cell (WBC) Count 12.4 thou/uL (4.8-10.8)
[2021-10-17] MEDS: HumaLOG 300 UNITS/3 ML VIAL SC PRN ×2 (06:48→16:48)
[2021-10-17] MEDS: Amlodipine 10 MG TAB PO SCH (08:30)
[2021-10-17] MEDS: Carvedilol 3.125 MG TAB PO SCH ×2 (08:30→16:16)
[2021-10-17] MEDS: Ezetimibe 10 MG TAB PO SCH (08:31)
[2021-10-17] MEDS: Aspirin 325 mg Enteric Coated Tablet PO SCH (08:31)
[2021-10-17] MEDS: Clopidogrel Bisulfate 75 MG TAB PO SCH (08:31)
[2021-10-17] MEDS: cloNIDine 0.1 MG TAB PO SCH ×3 (08:31→20:46)
[2021-10-17] MEDS ORDERED: Heparin 10,000 UNITS/ 10 ML VIAL ONE (10:40)
[2021-10-17] MEDS: EPOETIN ALFA-EPBX (ESRD) 10,000 UNIT/ML VIAL IVP SCH (14:04)
[2021-10-17] MEDS: traMADol HCl 50 MG TAB PO PRN (16:16)
[2021-10-17] MEDS: rOPINIRole HCl 1 MG TAB PO SCH (20:47)
[2021-10-17] MEDS: Mirtazapine 15 MG TAB PO SCH (20:47)
[2021-10-17] MEDS: Rosuvastatin 20 MG TAB PO SCH (20:48)
[2021-10-18] MEDS: Acetaminophen 325 MG TAB PO PRN (00:33)
[2021-10-18 03:27] LABS: #Eosinphils 0.3 thou/uL (0.0-0.7); #Lymphocytes 2.1 thou/uL (1.20-3.40); #Monocytes 0.9 thou/uL (0.11-0.59); #Neutrophils 7.3 thou/uL (1.40-6.50); %Basophils 0.3 % (0.0-1.0); %Eosinophils 2.5 % (0.0-10.0); %Lymphocytes 20.1 % (21.0-51.0); %Monocytes 8.5 % (0.0-10.0); %Neutrophils 68.6 % (42.0-75.0); Hemoglobin 7.4 g/dL (12.0-16.0); Mean Corpuscular HGB CONC 34.5 g/dL (32.0-36.0); Mean Corpuscular Hemoglobin 29.2 pg (27.0-31.0); Mean Corpuscular Volume 84.7 fL (78.0-98.0); Mean Platelet Volume 7.8 fL (7.4-10.4); Platelet Count 158 thou/uL (130-400); RBC Distribution Width 12.8 % (11.5-14.5); Red Blood Cell (RBC) Count 2.54 mill/uL (4.20-5.40); White Blood Cell (WBC) Count 10.6 thou/uL (4.8-10.8)
[2021-10-18 03:45] LABS: Anion Gap 12 mmol/L (10-20); BUN (Urea Nitrogen) 22 mg/dL (9.8-20.1); Calc. Creatinine Clearance 26 mL/min (70-130); Calcium 8.4 mg/dL (7.8-10.44); Carbon Dioxide 27 mmol/L (22-29); Chloride 97 mmol/L (98-107); Glucose 207 mg/dL (70-105); Potassium 3.8 mmol/L (3.5-5.1); Sodium 132 mmol/L (136-145)
[2021-10-18] MEDS: HumaLOG 300 UNITS/3 ML VIAL SC PRN ×3 (06:11→20:59)
[2021-10-18] MEDS ORDERED: Cepastat Lozenges 1 LOZ PO PRN (10:11)
[2021-10-18] MEDS: cloNIDine 0.1 MG TAB PO SCH ×3 (10:30→20:59)
[2021-10-18] MEDS: Aspirin 325 mg Enteric Coated Tablet PO SCH (10:30)
[2021-10-18] MEDS: Carvedilol 3.125 MG TAB PO SCH ×2 (10:30→15:44)
[2021-10-18] MEDS: Ezetimibe 10 MG TAB PO SCH (10:30)
[2021-10-18] MEDS: Clopidogrel Bisulfate 75 MG TAB PO SCH (10:30)
[2021-10-18] MEDS: Amlodipine 10 MG TAB PO SCH (10:30)
[2021-10-18] MEDS ORDERED: traMADol HCl 50 MG TAB PO PRN (10:49)
[2021-10-18] MEDS: rOPINIRole HCl 1 MG TAB PO SCH (20:58)
[2021-10-18] MEDS: Rosuvastatin 20 MG TAB PO SCH (20:58)
[2021-10-18] MEDS: Mirtazapine 15 MG TAB PO SCH (20:58)
[2021-10-18] MEDS: Loratadine 10 MG TAB PO SCH (20:58)
[2021-10-18] MEDS: Heparin 5,000 UNITS/ML VIAL SC SCH (20:59)
[2021-10-18 21:49] LABS: Bilirubin Negative (Negative); Blood, Urine 2+ (Negative); Clarity Clear (Clear); Glucose, Urine (Dipstick) 100 mg/dL (Negative); Ketone, Urine Negative (Negative); Leukocyte 500 Leu/uL (Negative); Nitrite Negative (Negative); Protein, Urine (Dipstick) 300 mg/dL (Neg-Trace); Specific Gravity, Urine 1.011 (1.002-1.036); Squamous Epithelial 0-3 HPF (0-3); Transitional Epithelial 0-3 HPF (None Seen); Urobilinogen Normal mg/dL (Less than 2); WBC/HPF Greater than 50 HPF (0-3); pH, Urine 6.5 (5.0-9.0)
[2021-10-18 21:51] LABS: Bacteria/HPF 1+ HPF (None Seen)
[2021-10-18 21:52] LABS: Urine Culture Reflex Yes Yes
[2021-10-19] MEDS: Acetaminophen 325 MG TAB PO PRN (00:06)
[2021-10-19 05:31] LABS: #Eosinphils 0.3 thou/uL (0.0-0.7); #Monocytes 0.7 thou/uL (0.11-0.59); #Neutrophils 6.4 thou/uL (1.40-6.50); %Basophils 0.4 % (0.0-1.0); %Eosinophils 3.4 % (0.0-10.0); %Lymphocytes 20.9 % (21.0-51.0); %Monocytes 7.6 % (0.0-10.0); %Neutrophils 67.7 % (42.0-75.0); Hemoglobin 7.2 g/dL (12.0-16.0); Mean Corpuscular HGB CONC 34.6 g/dL (32.0-36.0); Mean Corpuscular Volume 83.8 fL (78.0-98.0); Mean Platelet Volume 8.6 fL (7.4-10.4); Platelet Count 154 thou/uL (130-400); RBC Distribution Width 12.7 % (11.5-14.5); Red Blood Cell (RBC) Count 2.48 mill/uL (4.20-5.40); White Blood Cell (WBC) Count 9.5 thou/uL (4.8-10.8)
[2021-10-19 05:45] LABS: Anion Gap 14 mmol/L (10-20); BUN (Urea Nitrogen) 33 mg/dL (9.8-20.1); Calc. Creatinine Clearance 23 mL/min (70-130); Calcium 8.5 mg/dL (7.8-10.44); Carbon Dioxide 25 mmol/L (22-29); Chloride 96 mmol/L (98-107); Glucose 244 mg/dL (70-105); Potassium 3.8 mmol/L (3.5-5.1); Sodium 131 mmol/L (136-145)
[2021-10-19] MEDS: HumaLOG 300 UNITS/3 ML VIAL SC PRN (06:22)
[2021-10-19] MEDS: Mometasone 200 MCG/Formoterol 5 MCG 120 PUFF INHALER INH SCH ×2 (06:43→18:52)
[2021-10-19] MEDS: glipiZIDE 5 MG TAB PO SCH (08:28)
[2021-10-19] MEDS: cloNIDine 0.1 MG TAB PO SCH ×3 (08:28→20:32)
[2021-10-19] MEDS: Ezetimibe 10 MG TAB PO SCH (08:29)
[2021-10-19] MEDS: Heparin 5,000 UNITS/ML VIAL SC SCH (08:29)
[2021-10-19] MEDS: Carvedilol 3.125 MG TAB PO SCH ×2 (08:29→17:50)
[2021-10-19] MEDS: Aspirin 81 mg Enteric Coated Tablet PO SCH (08:29)
[2021-10-19] MEDS: Clopidogrel Bisulfate 75 MG TAB PO SCH (08:29)
[2021-10-19] MEDS: Amlodipine 10 MG TAB PO SCH (08:29)
[2021-10-19] MEDS: Multivit, Chewable SF 1 TAB PO SCH (08:33)
[2021-10-19 09:00] VITALS: BMI 44.0
[2021-10-19] MEDS: Nystatin Powder 15 GM BOT TOP SCH ×2 (11:03→20:32)
[2021-10-19] MEDS ORDERED: Vancomycin HCl 1 GM in Sodium Chloride 0.9% 250 ML 250 ML IVPB SCH (17:00)
[2021-10-19] MEDS ORDERED: Vancomycin 1 GM in Premix Bag 1 BAG IVPB SCH ×4 (18:30→23:00)
[2021-10-19] MEDS: Loratadine 10 MG TAB PO SCH (20:33)
[2021-10-19] MEDS: Rosuvastatin 20 MG TAB PO SCH (20:33)
[2021-10-19] MEDS: rOPINIRole HCl 1 MG TAB PO SCH (20:33)
[2021-10-19] MEDS: Mirtazapine 15 MG TAB PO SCH (20:33)
[2021-10-19] MEDS: Nitroglycerin 0.4 MG TAB (25 Tab Bottle) SL PRN ×3 (21:39→21:51)
[2021-10-19] MEDS ORDERED: Morphine 4 MG/ML VIAL SLOW IVP SCH (22:15)
[2021-10-19] MEDS ORDERED: HOLD VANCOMYCIN FOR LEVEL >20 FS SCH (22:15)
[2021-10-19] MEDS ORDERED: Vancomycin HCl 1.5 GM in Sodium Chloride 0.9% 250 ML 300 ML IVPB SCH (22:15)
[2021-10-19] MEDS ORDERED: Vancomycin HCl 750 MG in Sodium Chloride 0.9% 250 ML 250 ML IVPB SCH (22:15)
[2021-10-19] MEDS ORDERED: Vancomycin HCl 1.25 GM in Sodium Chloride 0.9% 250 ML 250 ML IVPB SCH (22:15)
[2021-10-19 22:36] LABS: Troponin I 0.919 ng/mL (< 0.028)
[2021-10-20] MEDS: Acetaminophen 325 MG TAB PO PRN (04:15)
[2021-10-20] MEDS: Nystatin Powder 15 GM BOT TOP SCH ×3 (04:16→20:26)
[2021-10-20 05:30] LABS: #Eosinphils 0.3 thou/uL (0.0-0.7); #Lymphocytes 1.6 thou/uL (1.20-3.40); #Monocytes 0.6 thou/uL (0.11-0.59); #Neutrophils 5.9 thou/uL (1.40-6.50); %Basophils 0.3 % (0.0-1.0); %Eosinophils 3.7 % (0.0-10.0); %Lymphocytes 18.4 % (21.0-51.0); %Monocytes 7.4 % (0.0-10.0); %Neutrophils 70.2 % (42.0-75.0); Hemoglobin 7.1 g/dL (12.0-16.0); Mean Corpuscular HGB CONC 34.1 g/dL (32.0-36.0); Mean Corpuscular Hemoglobin 28.5 pg (27.0-31.0); Mean Corpuscular Volume 83.5 fL (78.0-98.0); Mean Platelet Volume 8.1 fL (7.4-10.4); Platelet Count 188 thou/uL (130-400); RBC Distribution Width 12.7 % (11.5-14.5); White Blood Cell (WBC) Count 8.5 thou/uL (4.8-10.8)
[2021-10-20 05:54] LABS: Anion Gap 15 mmol/L (10-20); BUN (Urea Nitrogen) 40 mg/dL (9.8-20.1); Calc. Creatinine Clearance 21 mL/min (70-130); Calcium 8.4 mg/dL (7.8-10.44); Carbon Dioxide 24 mmol/L (22-29); Chloride 97 mmol/L (98-107); Glucose 176 mg/dL (70-105); Potassium 3.7 mmol/L (3.5-5.1); Sodium 132 mmol/L (136-145)
[2021-10-20] MEDS: HumaLOG 300 UNITS/3 ML VIAL SC PRN ×2 (06:02→20:28)
[2021-10-20] MEDS: Mometasone 200 MCG/Formoterol 5 MCG 120 PUFF INHALER INH SCH ×2 (06:55→19:02)
[2021-10-20] MEDS: Carvedilol 3.125 MG TAB PO SCH ×2 (08:32→17:26)
[2021-10-20] MEDS: cloNIDine 0.1 MG TAB PO SCH ×3 (08:32→20:27)
[2021-10-20] MEDS: Clopidogrel Bisulfate 75 MG TAB PO SCH (08:32)
[2021-10-20] MEDS: Aspirin 81 mg Enteric Coated Tablet PO SCH (08:32)
[2021-10-20] MEDS: Ezetimibe 10 MG TAB PO SCH (08:32)
[2021-10-20] MEDS: glipiZIDE 5 MG TAB PO SCH (08:33)
[2021-10-20] MEDS: Amlodipine 10 MG TAB PO SCH (08:33)
[2021-10-20] MEDS: Multivit, Chewable SF 1 TAB PO SCH (08:38)
[2021-10-20] MEDS ORDERED: Aztreonam 1 GM in Sodium Chloride 0.9% 100 ML IVPB SCH (09:00)
[2021-10-20] MEDS ORDERED: sitaGLIPtin Phosphate 25 MG TAB PO SCH (09:15)
[2021-10-20] MEDS ORDERED: Alogliptin 6.25 MG TAB PO SCH (09:30)
[2021-10-20 09:38] LABS: Troponin I 1.114 ng/mL (< 0.028)
[2021-10-20 10:01] LABS: Critical Call Chem Troponin I RESULT DECREASING
[2021-10-20] MEDS ORDERED: Heparin 10,000 UNITS/ 10 ML VIAL ONE (10:49)
[2021-10-20] MEDS: EPOETIN ALFA-EPBX (ESRD) 10,000 UNIT/ML VIAL IVP SCH (14:25)
[2021-10-20] MEDS ORDERED: glipiZIDE 5 MG TAB PO SCH (17:15)
[2021-10-20] MEDS: Mirtazapine 15 MG TAB PO SCH (20:27)
[2021-10-20] MEDS: Loratadine 10 MG TAB PO SCH (20:27)
[2021-10-20] MEDS: rOPINIRole HCl 2 MG TAB PO SCH (20:27)
[2021-10-20] MEDS: Rosuvastatin 20 MG TAB PO SCH (20:28)
[2021-10-20] MEDS ORDERED: rOPINIRole HCl 1 MG TAB PO SCH (21:00)
[2021-10-21] MEDS: Nystatin Powder 15 GM BOT TOP SCH ×3 (03:07→20:22)
[2021-10-21 05:59] LABS: #Eosinphils 0.3 thou/uL (0.0-0.7); #Lymphocytes 1.7 thou/uL (1.20-3.40); #Monocytes 0.8 thou/uL (0.11-0.59); #Neutrophils 6.1 thou/uL (1.40-6.50); %Basophils 0.2 % (0.0-1.0); %Eosinophils 3.8 % (0.0-10.0); %Lymphocytes 18.7 % (21.0-51.0); %Monocytes 8.8 % (0.0-10.0); %Neutrophils 68.4 % (42.0-75.0); Hemoglobin 9.4 g/dL (12.0-16.0); Mean Corpuscular HGB CONC 34.5 g/dL (32.0-36.0); Mean Corpuscular Hemoglobin 29.9 pg (27.0-31.0); Mean Corpuscular Volume 86.6 fL (78.0-98.0); Mean Platelet Volume 8.2 fL (7.4-10.4); Platelet Count 203 thou/uL (130-400); Red Blood Cell (RBC) Count 3.15 mill/uL (4.20-5.40); White Blood Cell (WBC) Count 8.8 thou/uL (4.8-10.8)
[2021-10-21] MEDS: HumaLOG 300 UNITS/3 ML VIAL SC PRN ×2 (06:05→17:05)
[2021-10-21 06:19] LABS: Anion Gap 9 mmol/L (10-20); BUN (Urea Nitrogen) 24 mg/dL (9.8-20.1); Calc. Creatinine Clearance 29 mL/min (70-130); Calcium 8.5 mg/dL (7.8-10.44); Carbon Dioxide 31 mmol/L (22-29); Chloride 97 mmol/L (98-107); Glucose 155 mg/dL (70-105); Potassium 3.4 mmol/L (3.5-5.1); Sodium 134 mmol/L (136-145)
[2021-10-21] MEDS: Mometasone 200 MCG/Formoterol 5 MCG 120 PUFF INHALER INH SCH ×2 (07:35→19:15)
[2021-10-21] MEDS ORDERED: sitaGLIPtin Phosphate 25 MG TAB PO SCH (09:00)
[2021-10-21] MEDS ORDERED: rOPINIRole HCl 2 MG TAB PO SCH (09:00)
[2021-10-21] MEDS ORDERED: traMADol HCl 50 MG TAB PO PRN ×3 (09:15→20:57)
[2021-10-21] MEDS: Acetaminophen 325 MG TAB PO PRN (10:25)
[2021-10-21] MEDS: glipiZIDE 5 MG TAB PO SCH ×2 (13:58→17:01)
[2021-10-21] MEDS: cloNIDine 0.1 MG TAB PO SCH ×3 (13:58→20:22)
[2021-10-21] MEDS: Carvedilol 6.25 MG TAB PO SCH ×2 (13:58→17:01)
[2021-10-21] MEDS: Aspirin 81 mg Enteric Coated Tablet PO SCH (14:04)
[2021-10-21] MEDS: Clopidogrel Bisulfate 75 MG TAB PO SCH (14:04)
[2021-10-21] MEDS: Ezetimibe 10 MG TAB PO SCH (14:04)
[2021-10-21] MEDS: Amlodipine 10 MG TAB PO SCH (14:05)
[2021-10-21] MEDS: Alogliptin 6.25 MG TAB PO SCH (14:05)
[2021-10-21] MEDS: Multivit, Chewable SF 1 TAB PO SCH (14:10)
[2021-10-21] MEDS ORDERED: Aztreonam 1 GM in Sodium Chloride 0.9% 100 ML IVPB SCH (17:00)
[2021-10-21] MEDS: Loratadine 10 MG TAB PO SCH (20:22)
[2021-10-21] MEDS: Mirtazapine 15 MG TAB PO SCH (20:23)
[2021-10-21] MEDS: Rosuvastatin 20 MG TAB PO SCH (20:23)
[2021-10-21] MEDS: rOPINIRole HCl 2 MG TAB PO SCH (20:23)
[2021-10-21] MEDS ORDERED: VANCOMYCIN 1.25 GM/250 ML BAG 1.25 GM in Premix Bag 1 BAG IVPB SCH (21:45)
[2021-10-21] MEDS ORDERED: Vancomycin HCl 1.25 GM in Sodium Chloride 0.9% 250 ML 250 ML IVPB SCH (22:30)
[2021-10-22] MEDS: Nystatin Powder 15 GM BOT TOP SCH (03:12)
[2021-10-22] MEDS: Mometasone 200 MCG/Formoterol 5 MCG 120 PUFF INHALER INH SCH (06:47)
[2021-10-22] MEDS ORDERED: Cipro 250 MG TAB PO SCH ×2 (09:00)
[2021-10-22 09:33] VITALS: TEMP 98.7
[2021-10-22] MEDS: Alogliptin 6.25 MG TAB PO SCH (10:21)
[2021-10-22] MEDS: glipiZIDE 5 MG TAB PO SCH (10:21)
[2021-10-22] MEDS: Carvedilol 6.25 MG TAB PO SCH (10:21)
[2021-10-22] MEDS: Clopidogrel Bisulfate 75 MG TAB PO SCH (10:22)
[2021-10-22] MEDS: Aspirin 81 mg Enteric Coated Tablet PO SCH (10:22)
[2021-10-22] MEDS: Ezetimibe 10 MG TAB PO SCH (10:22)
[2021-10-22] MEDS: Amlodipine 10 MG TAB PO SCH (10:23)
[2021-10-22] MEDS: cloNIDine 0.1 MG TAB PO SCH (10:23)
[2021-10-22] MEDS: Multivit, Chewable SF 1 TAB PO SCH (10:24)
[2021-10-22 10:29] VITALS: BP 137/86
== END 2021-10-22 11:25 | disposition home or self-care (01) | DRG 264 ==
LOC: ERS 16:02 → 2NO 18:24 → CCU 10-09 16:14 → IMCU/EMU 10-11 14:25 → CCU 10-14 12:26 → PACU-TCU 10-14 21:57 → 2NO 10-15 13:24
PROVIDERS: ADMIT Internal Medicine; ATTEND Internal Medicine
PROC: 02HV33Z Insertion of Infusion Device into Superior Vena Cava, Percutaneous Approach (ICD-10-PCS; 2021-10-10)
PROC: B548ZZA Ultrasonography of Superior Vena Cava, Guidance (ICD-10-PCS; 2021-10-10)
PROC: 5A09357 Assistance with Respiratory Ventilation, Less than 24 Consecutive Hours, Continuous Positive Airway Pressure (ICD-10-PCS; 2021-10-11)
PROC: B2111ZZ Fluoroscopy of Multiple Coronary Arteries using Low Osmolar Contrast (ICD-10-PCS; principal; 2021-10-14)
PROC: 031C09F Bypass Left Radial Artery to Lower Arm Vein with Autologous Venous Tissue, Open Approach (ICD-10-PCS; 2021-10-16)
PROC: 0JH63XZ Insertion of Tunneled Vascular Access Device into Chest Subcutaneous Tissue and Fascia, Percutaneous Approach (ICD-10-PCS; 2021-10-16)
PROC: 02HV33Z Insertion of Infusion Device into Superior Vena Cava, Percutaneous Approach (ICD-10-PCS; 2021-10-16)
PROC: B5181ZA Fluoroscopy of Superior Vena Cava using Low Osmolar Contrast, Guidance (ICD-10-PCS; 2021-10-16)
PROC: B548ZZA Ultrasonography of Superior Vena Cava, Guidance (ICD-10-PCS; 2021-10-16)
PROC: 5A1D70Z Performance of Urinary Filtration, Intermittent, Less than 6 Hours Per Day (ICD-10-PCS; 2021-10-16)
DX: I13.2 Hypertensive heart and chronic kidney disease with heart failure and with stage 5 chronic kidney disease, or end stage renal disease (principal); J81.0 Acute pulmonary edema; Z20.822 Contact with and (suspected) exposure to COVID-19; I21.4 Non-ST elevation (NSTEMI) myocardial infarction; J96.91 Respiratory failure, unspecified with hypoxia; I50.33 Acute on chronic diastolic (congestive) heart failure; N18.6 End stage renal disease; E87.2 Acidosis; N39.0 Urinary tract infection, site not specified; E11.22 Type 2 diabetes mellitus with diabetic chronic kidney disease; E11.65 Type 2 diabetes mellitus with hyperglycemia; E11.40 Type 2 diabetes mellitus with diabetic neuropathy, unspecified; G43.909 Migraine, unspecified, not intractable, without status migrainosus; G25.81 Restless legs syndrome; G89.4 Chronic pain syndrome; F41.9 Anxiety disorder, unspecified; F32.A Depression, unspecified; I16.0 Hypertensive urgency; E78.5 Hyperlipidemia, unspecified; E88.09 Other disorders of plasma-protein metabolism, not elsewhere classified; M06.9 Rheumatoid arthritis, unspecified; G47.33 Obstructive sleep apnea (adult) (pediatric); K90.0 Celiac disease; L40.50 Arthropathic psoriasis, unspecified; M32.9 Systemic lupus erythematosus, unspecified; K21.9 Gastro-esophageal reflux disease without esophagitis; H40.9 Unspecified glaucoma; M79.7 Fibromyalgia; E66.01 Morbid (severe) obesity due to excess calories; D63.1 Anemia in chronic kidney disease; E11.621 Type 2 diabetes mellitus with foot ulcer; L97.519 Non-pressure chronic ulcer of other part of right foot with unspecified severity; J44.9 Chronic obstructive pulmonary disease, unspecified; I25.10 Atherosclerotic heart disease of native coronary artery without angina pectoris; R50.9 Fever, unspecified; Z90.49 Acquired absence of other specified parts of digestive tract; Z68.41 Body mass index [BMI] 40.0-44.9, adult; Z85.41 Personal history of malignant neoplasm of cervix uteri; Z90.710 Acquired absence of both cervix and uterus; Z98.51 Tubal ligation status; Z79.84 Long term (current) use of oral hypoglycemic drugs; Z79.899 Other long term (current) drug therapy; Z89.421 Acquired absence of other right toe(s); Z88.5 Allergy status to narcotic agent; Z88.8 Allergy status to other drugs, medicaments and biological substances; Z87.891 Personal history of nicotine dependence; Z88.2 Allergy status to sulfonamides; Z88.1 Allergy status to other antibiotic agents; Z88.0 Allergy status to penicillin; Z91.013 Allergy to seafood; Z99.89 Dependence on other enabling machines and devices
CPT/HCPCS: 36415; 36416; 36430; 71045; 71046; 78451; 80048; 80053; 80061; 81001; 82550; 82553; 82570; 83036; 83605; 83735; 83880; 83970; 84100; 84156; 84300; 84484; 84540; 85014; 85018; 85025; 85049; 85347; 85610; 85730; 86580; 86704; 86706; 86803; 86850; 86900; 86901; 87040; 87070; 87077; 87086; 87186; 87205; 87340; 90935; 92928; 92929; 93005; 93010; 93306; 93454; 93798; 93970; 94640; 96372; 96374; 99153; A9540; C1751; C1752; C1776; C1874; C9113; C9600; C9601; G0257; J0153; J1642; J1644; J1650; J1815; J1940; J1956; J2001; J2250; J2270; J2405; J2704; J2720; J3010; J3370; J3490; J7050; J7620; P9016; Q5105; Q9967; S0020; U0003; U0005

== ENCOUNTER 2021-11-14 16:29 | Emergency (ER) | payer OTHER ==
[2021-11-14] MEDS ORDERED: Bacitracin 1 PK ONE (17:23)
== END 2021-11-14 17:49 | disposition home or self-care (01) ==
LOC: ERS 16:29
DX: T82.7XXA Infection and inflammatory reaction due to other cardiac and vascular devices, implants and grafts, initial encounter (principal); I12.9 Hypertensive chronic kidney disease with stage 1 through stage 4 chronic kidney disease, or unspecified chronic kidney disease; N18.9 Chronic kidney disease, unspecified; E11.22 Type 2 diabetes mellitus with diabetic chronic kidney disease; E78.5 Hyperlipidemia, unspecified; E11.40 Type 2 diabetes mellitus with diabetic neuropathy, unspecified; G43.909 Migraine, unspecified, not intractable, without status migrainosus; J45.909 Unspecified asthma, uncomplicated; Z87.891 Personal history of nicotine dependence
CPT/HCPCS: 87070; 87077; 87186; 87205

== ENCOUNTER 2022-04-27 10:42 | Emergency (ER) | payer OTHER ==
[2022-04-27 11:38] LABS: #Eosinphils 0.3 thou/uL (0.0-0.7); #Lymphocytes 1.7 thou/uL (1.20-3.40); #Monocytes 0.4 thou/uL (0.11-0.59); %Basophils 0.3 % (0.0-1.0); %Eosinophils 3.5 % (0.0-10.0); %Lymphocytes 22.9 % (21.0-51.0); %Monocytes 5.8 % (0.0-10.0); %Neutrophils 67.6 % (42.0-75.0); Mean Corpuscular HGB CONC 33.2 g/dL (32.0-36.0); Mean Corpuscular Hemoglobin 30.8 pg (27.0-31.0); Mean Corpuscular Volume 92.8 fL (78.0-98.0); Mean Platelet Volume 7.5 fL (7.4-10.4); Platelet Count 184 thou/uL (130-400); Red Blood Cell (RBC) Count 3.58 mill/uL (4.20-5.40); White Blood Cell (WBC) Count 7.5 thou/uL (4.8-10.8)
[2022-04-27 12:01] LABS: ALT (SGPT) 28 U/L (8-55); AST (SGOT) 29 U/L (5-34); Albumin 3.4 g/dL (3.5-5.0); Alkaline Phosphatase 100 U/L (40-110); Anion Gap 12 mmol/L (10-20); BUN (Urea Nitrogen) 60 mg/dL (9.8-20.1); Bilirubin, Total 0.3 mg/dL (0.2-1.2); Calc. Creatinine Clearance 0 mL/min (70-130); Calcium 8.6 mg/dL (7.8-10.44); Carbon Dioxide 24 mmol/L (22-29); Chloride 110 mmol/L (98-107); Globulin 3.2 g/dL (2.4-3.5); Glucose 103 mg/dL (70-105); Potassium 5.3 mmol/L (3.5-5.1); Protein, Total 6.6 g/dL (6.0-8.3); Sodium 141 mmol/L (136-145)
[2022-04-27] MEDS ORDERED: Aspirin Chewable 81 MG TAB ONE (13:51)
[2022-04-27] MEDS ORDERED: Morphine 2 MG/ML VIAL ONE (14:22)
== END 2022-04-27 16:33 | disposition home or self-care (01) ==
LOC: ERS 10:42
DX: R07.2 Precordial pain (principal); I25.10 Atherosclerotic heart disease of native coronary artery without angina pectoris; I13.11 Hypertensive heart and chronic kidney disease without heart failure, with stage 5 chronic kidney disease, or end stage renal disease; E11.22 Type 2 diabetes mellitus with diabetic chronic kidney disease; N18.6 End stage renal disease; E87.5 Hyperkalemia; E78.1 Pure hyperglyceridemia; E78.5 Hyperlipidemia, unspecified; J45.909 Unspecified asthma, uncomplicated; K21.9 Gastro-esophageal reflux disease without esophagitis; E11.40 Type 2 diabetes mellitus with diabetic neuropathy, unspecified; M79.7 Fibromyalgia; G47.30 Sleep apnea, unspecified; M06.9 Rheumatoid arthritis, unspecified; H26.9 Unspecified cataract; Z87.19 Personal history of other diseases of the digestive system; Z87.891 Personal history of nicotine dependence; Z95.5 Presence of coronary angioplasty implant and graft; Z79.82 Long term (current) use of aspirin; Z79.84 Long term (current) use of oral hypoglycemic drugs; Z79.899 Other long term (current) drug therapy
CPT/HCPCS: 36415; 71046; 80053; 83690; 83880; 84484; 85025; 93005; 94640; 96372; J2270; J7620

== ENCOUNTER 2022-07-15 20:56 | Emergency (ER) | payer OTHER | END 2022-07-15 21:57 | disposition home or self-care (01) | LOC: ERS 20:56 | DX: T82.510A Breakdown (mechanical) of surgically created arteriovenous fistula, initial encounter (principal); I12.0 Hypertensive chronic kidney disease with stage 5 chronic kidney disease or end stage renal disease; E11.22 Type 2 diabetes mellitus with diabetic chronic kidney disease; N18.6 End stage renal disease; I25.2 Old myocardial infarction; E78.2 Mixed hyperlipidemia; G47.30 Sleep apnea, unspecified; J45.909 Unspecified asthma, uncomplicated; M06.9 Rheumatoid arthritis, unspecified; K21.9 Gastro-esophageal reflux disease without esophagitis; M79.7 Fibromyalgia; E11.40 Type 2 diabetes mellitus with diabetic neuropathy, unspecified; G25.81 Restless legs syndrome; W54.1XXA Struck by dog, initial encounter; Z95.5 Presence of coronary angioplasty implant and graft; Z87.891 Personal history of nicotine dependence; Z79.82 Long term (current) use of aspirin; Z79.899 Other long term (current) drug therapy; Z85.41 Personal history of malignant neoplasm of cervix uteri | CPT/HCPCS: 99283 ==

== ENCOUNTER 2022-08-22 21:04 | Emergency (ER) | payer OTHER ==
[2022-08-22 22:05] LABS: Bacteria/HPF None Seen HPF (None Seen); Bilirubin Negative (Negative); Blood, Urine 2+ (Negative); Clarity Clear (Clear); Glucose, Urine (Dipstick) >=1000 mg/dL (Negative); Ketone, Urine Negative (Negative); Leukocyte 250 Leu/uL (Negative); Nitrite Negative (Negative); Protein, Urine (Dipstick) 300 mg/dL (Neg-Trace); Specific Gravity, Urine 1.013 (1.002-1.036); Urobilinogen Normal mg/dL (Less than 2)
[2022-08-22 22:07] LABS: Pregnancy Test - Urine (BHCG) Negative (Negative); Pregu Control Background? CLEAR/WHITE (CLR/WHITE); Pregu Control Bar Appear? YES (CONTROL BAR); Specific Gravity 1.013 (1.002-1.036)
[2022-08-22 22:24] LABS: #Eosinphils 0.3 thou/uL (0.0-0.7); #Lymphocytes 2.2 thou/uL (1.20-3.40); #Monocytes 0.5 thou/uL (0.11-0.59); #Neutrophils 6.9 thou/uL (1.40-6.50); %Basophils 0.3 % (0.0-1.0); %Eosinophils 2.6 % (0.0-10.0); %Lymphocytes 22.1 % (21.0-51.0); %Monocytes 4.8 % (0.0-10.0); %Neutrophils 70.2 % (42.0-75.0); Mean Corpuscular HGB CONC 33.8 g/dL (32.0-36.0); Mean Corpuscular Hemoglobin 30.6 pg (27.0-31.0); Mean Corpuscular Volume 90.5 fL (78.0-98.0); Mean Platelet Volume 8.4 fL (7.4-10.4); Platelet Count 215 thou/uL (130-400); RBC Distribution Width 11.7 % (11.5-14.5); Red Blood Cell (RBC) Count 3.94 mill/uL (4.20-5.40); White Blood Cell (WBC) Count 9.8 thou/uL (4.8-10.8)
[2022-08-22 22:48] LABS: ALT (SGPT) 16 U/L (8-55); AST (SGOT) 25 U/L (5-34); Albumin 3.7 g/dL (3.5-5.0); Alkaline Phosphatase 91 U/L (40-110); Anion Gap 17 mmol/L (10-20); BUN (Urea Nitrogen) 43 mg/dL (9.8-20.1); Bilirubin, Total 0.2 mg/dL (0.2-1.2); Calc. Creatinine Clearance 0 mL/min (70-130); Carbon Dioxide 24 mmol/L (22-29); Chloride 104 mmol/L (98-107); Estimated GFR 13; Globulin 3.4 g/dL (2.4-3.5); Glucose 283 mg/dL (70-105); Potassium 3.9 mmol/L (3.5-5.1); Protein, Total 7.1 g/dL (6.0-8.3); Sodium 141 mmol/L (136-145)
[2022-08-23] MEDS ORDERED: Ketorolac Tromethamine 30 MG/ML VIAL ONE (01:00)
== END 2022-08-23 01:45 | disposition home or self-care (01) ==
LOC: ERS 21:04
DX: G89.4 Chronic pain syndrome (principal); E78.2 Mixed hyperlipidemia; I25.2 Old myocardial infarction; M79.7 Fibromyalgia; I12.0 Hypertensive chronic kidney disease with stage 5 chronic kidney disease or end stage renal disease; E11.22 Type 2 diabetes mellitus with diabetic chronic kidney disease; N18.6 End stage renal disease; G47.30 Sleep apnea, unspecified; M06.9 Rheumatoid arthritis, unspecified; E11.40 Type 2 diabetes mellitus with diabetic neuropathy, unspecified; K21.9 Gastro-esophageal reflux disease without esophagitis; M32.9 Systemic lupus erythematosus, unspecified; J45.909 Unspecified asthma, uncomplicated; Z87.891 Personal history of nicotine dependence; Z95.5 Presence of coronary angioplasty implant and graft; Z79.82 Long term (current) use of aspirin; Z79.84 Long term (current) use of oral hypoglycemic drugs; Z79.899 Other long term (current) drug therapy
CPT/HCPCS: 36415; 80053; 81003; 81015; 81025; 85025; 96372; 99283; J1885

== ENCOUNTER 2022-09-13 15:03 | Inpatient (IN) | payer OTHER ==
[2022-09-13 17:07] LABS: Hemoglobin 9.3 g/dL (12.0-16.0); Mean Corpuscular HGB CONC 33.3 g/dL (32.0-36.0); Mean Corpuscular Hemoglobin 29.9 pg (27.0-31.0); Mean Corpuscular Volume 89.9 fL (78.0-98.0); Mean Platelet Volume 8.3 fL (7.4-10.4); Platelet Count 220 thou/uL (130-400); RBC Distribution Width 11.7 % (11.5-14.5); Red Blood Cell (RBC) Count 3.11 mill/uL (4.20-5.40); White Blood Cell (WBC) Count 21.4 thou/uL (4.8-10.8)
[2022-09-13] MEDS ORDERED: Cefepime 2 GM VIAL ONE (17:09)
[2022-09-13 17:14] LABS: ALT (SGPT) 21 U/L (8-55); AST (SGOT) 55 U/L (5-34); Alkaline Phosphatase 89 U/L (40-110); Anion Gap 17 mmol/L (10-20); BUN (Urea Nitrogen) 65 mg/dL (9.8-20.1); Bilirubin, Total 0.7 mg/dL (0.2-1.2); Calc. Creatinine Clearance 0 mL/min (70-130); Calcium 8.4 mg/dL (7.8-10.44); Carbon Dioxide 22 mmol/L (22-29); Chloride 96 mmol/L (98-107); Estimated GFR 9; Globulin 3.4 g/dL (2.4-3.5); Glucose 131 mg/dL (70-105); Potassium 4.2 mmol/L (3.5-5.1); Protein, Total 6.4 g/dL (6.0-8.3); Sodium 131 mmol/L (136-145)
[2022-09-13] MEDS ORDERED: Vancomycin 1 GM/200 ML BAG ONE (17:30)
[2022-09-13 17:34] LABS: Band 17 % (5-11); Lymphocytes 4 % (21-51); MDiff Complete? YES; Monocytes 5 % (0-10); Neutrophil 74 % (42-75); Platelet Morphology Comment Appears Adequate; Polychromasia SLIGHT = 2-3 cells (100X) (0-2/hpf)
[2022-09-13] MEDS ORDERED: Ondansetron PF 4 MG/2 ML Vial IVP PRN (18:43)
[2022-09-13] MEDS ORDERED: Dextrose 50% Abboject 50 ML SYRINGE SLOW IVP PRN (18:53)
[2022-09-13] MEDS ORDERED: Dextrose 5% in Water 1,000 ML IV PRN (18:53)
[2022-09-13] MEDS ORDERED: Clindamycin/D5W 900 mg/50 ml Premix Bag ONE (19:06)
[2022-09-13] MEDS: Heparin 5,000 UNITS/ML VIAL SC SCH (20:44)
[2022-09-13] MEDS ORDERED: Albuterol Sulfate 2.5 mg/3 ml Neb NEB PRN (22:06)
[2022-09-13 22:17] VITALS: BMI 41.5
[2022-09-13] MEDS ORDERED: Vancomycin Dialysis Sliding Scale (Wt > 99) FS SCH (23:00)
[2022-09-13] MEDS ORDERED: Vancomycin 1 GM in Premix Bag 1 BAG IVPB SCH (23:15)
[2022-09-14 01:27] LABS: SARS-CoV-2 NAA Rapid Test Not Detected (NotDetected)
[2022-09-14 04:28] LABS: ALT (SGPT) 18 U/L (8-55); AST (SGOT) 40 U/L (5-34); Albumin 2.8 g/dL (3.5-5.0); Alkaline Phosphatase 99 U/L (40-110); Anion Gap 15 mmol/L (10-20); BUN (Urea Nitrogen) 70 mg/dL (9.8-20.1); Bilirubin, Total 0.4 mg/dL (0.2-1.2); Calc. Creatinine Clearance 19 mL/min (70-130); Calcium 8.5 mg/dL (7.8-10.44); Carbon Dioxide 22 mmol/L (22-29); Chloride 99 mmol/L (98-107); Estimated GFR 9; Globulin 3.3 g/dL (2.4-3.5); Glucose 165 mg/dL (70-105); Potassium 3.9 mmol/L (3.5-5.1); Protein, Total 6.1 g/dL (6.0-8.3); Sodium 132 mmol/L (136-145)
[2022-09-14 04:36] LABS: Band 4 % (5-11); Hemoglobin 9.1 g/dL (12.0-16.0); Hypochromia SLIGHT = 6-15 cells (100X) (0-5/hpf); Lymphocytes 3 % (21-51); MDiff Complete? YES; Mean Corpuscular HGB CONC 33.4 g/dL (32.0-36.0); Mean Corpuscular Hemoglobin 30.8 pg (27.0-31.0); Mean Corpuscular Volume 92.3 fL (78.0-98.0); Mean Platelet Volume 8.4 fL (7.4-10.4); Monocytes 11 % (0-10); Neutrophil 82 % (42-75); Platelet Count 211 thou/uL (130-400); Platelet Morphology Comment Appears Adequate; RBC Distribution Width 11.8 % (11.5-14.5); Red Blood Cell (RBC) Count 2.95 mill/uL (4.20-5.40)
[2022-09-14] MEDS: Clindamycin/D5W 900 MG in Premix Bag 1 BAG IVPB SCH ×3 (04:37→21:13)
[2022-09-14] MEDS ORDERED: glipiZIDE 5 MG TAB PO SCH (07:30)
[2022-09-14] MEDS: Clopidogrel Bisulfate 75 MG TAB PO SCH (08:54)
[2022-09-14] MEDS: Alogliptin 6.25 MG TAB PO SCH (08:54)
[2022-09-14] MEDS: Carvedilol 6.25 MG TAB PO SCH ×2 (08:54→18:31)
[2022-09-14] MEDS: Heparin 5,000 UNITS/ML VIAL SC SCH ×3 (08:54→21:16)
[2022-09-14] MEDS: Amlodipine 10 MG TAB PO SCH (08:54)
[2022-09-14] MEDS: cloNIDine 0.1 MG TAB PO SCH ×3 (08:54→21:16)
[2022-09-14] MEDS: Acetaminophen 325 MG TAB PO PRN ×2 (08:59→21:14)
[2022-09-14] MEDS ORDERED: Aspirin 81 mg Enteric Coated Tablet PO SCH (09:00)
[2022-09-14] MEDS ORDERED: Ketorolac Tromethamine 30 MG/ML VIAL IVP SCH (10:00)
[2022-09-14] MEDS: Azelastine 137 MCG/Spray 30 ML NS SCH ×2 (10:09→21:17)
[2022-09-14] MEDS: HumaLOG 300 UNITS/3 ML VIAL SC PRN (11:56)
[2022-09-14 14:39] LABS: HBSAg Index 0.34 S/CO (0-0.99); Hep B Surf Ag Non-Reactive S/CO (NonReactive)
[2022-09-14] MEDS ORDERED: Vancomycin Dose by Levels Sliding Scale (Wt > 99) FS SCH (17:00)
[2022-09-14] MEDS: Cefepime 0.5 GM in Sodium Chloride 0.9% 100 ML IVPB SCH (18:32)
[2022-09-14] MEDS: rOPINIRole HCl 1 MG TAB PO SCH (21:15)
[2022-09-14] MEDS: Rosuvastatin 10 MG TAB PO SCH (21:15)
[2022-09-14] MEDS: Lansoprazole 3 MG/ML ORAL SUSPENSION PO SCH (21:54)
[2022-09-14] MEDS ORDERED: Acetaminophen 325 MG TAB PO SCH (22:45)
[2022-09-14] MEDS: Fentanyl 100 MCG/2 ML VIAL SLOW IVP PRN (23:19)
[2022-09-15] MEDS: Loperamide HCl 2 MG CAP PO PRN (00:54)
[2022-09-15] MEDS: Fentanyl 100 MCG/2 ML VIAL SLOW IVP PRN (05:00)
[2022-09-15] MEDS: Clindamycin/D5W 900 MG in Premix Bag 1 BAG IVPB SCH ×3 (05:01→21:15)
[2022-09-15] MEDS ORDERED: fentaNYL Citrate/PF 100 MCG/2 ML SYRINGE ONE (07:02)
[2022-09-15] MEDS ORDERED: PROPOFOL 200 MG/20 ML VIAL ONE (07:46)
[2022-09-15] MEDS ORDERED: Ondansetron PF 4 MG/2 ML Vial ONE ×2 (07:46→09:26)
[2022-09-15] MEDS ORDERED: PHENYLEPHRINE-NS 100 MCG/ML 10 ML SYRINGE ONE (07:46)
[2022-09-15] MEDS ORDERED: ePHEDrine 50 MG/ML VIAL ONE (07:46)
[2022-09-15] MEDS ORDERED: Fentanyl 100 MCG/2 ML VIAL ONE (09:26)
[2022-09-15] MEDS: cloNIDine 0.1 MG TAB PO SCH ×3 (09:28→21:14)
[2022-09-15] MEDS: Carvedilol 6.25 MG TAB PO SCH ×2 (10:25→16:27)
[2022-09-15] MEDS: Azelastine 137 MCG/Spray 30 ML NS SCH ×2 (10:26→21:15)
[2022-09-15] MEDS: Alogliptin 6.25 MG TAB PO SCH (10:26)
[2022-09-15] MEDS: Amlodipine 10 MG TAB PO SCH (10:26)
[2022-09-15] MEDS: Heparin 5,000 UNITS/ML VIAL SC SCH ×3 (10:27→21:17)
[2022-09-15] MEDS: Clopidogrel Bisulfate 75 MG TAB PO SCH (10:27)
[2022-09-15] MEDS: Cefepime 0.5 GM in Sodium Chloride 0.9% 100 ML IVPB SCH (16:27)
[2022-09-15] MEDS: Rosuvastatin 10 MG TAB PO SCH (21:14)
[2022-09-15] MEDS: Acetaminophen 325 MG TAB PO PRN (21:14)
[2022-09-15] MEDS: rOPINIRole HCl 1 MG TAB PO SCH (21:14)
[2022-09-15] MEDS: Lansoprazole 3 MG/ML ORAL SUSPENSION PO SCH (21:15)
[2022-09-16] MEDS: Clindamycin/D5W 900 MG in Premix Bag 1 BAG IVPB SCH ×2 (03:57→13:51)
[2022-09-16 08:08] LABS: Vancomycin, Random 15.2 ug/mL (See Comment)
[2022-09-16] MEDS: traMADol HCl 50 MG TAB PO PRN ×3 (08:37→21:50)
[2022-09-16] MEDS: Azelastine 137 MCG/Spray 30 ML NS SCH ×2 (13:55→20:45)
[2022-09-16] MEDS: cloNIDine 0.1 MG TAB PO SCH ×3 (13:55→20:41)
[2022-09-16] MEDS: Carvedilol 6.25 MG TAB PO SCH ×2 (13:55→16:23)
[2022-09-16] MEDS: Alogliptin 6.25 MG TAB PO SCH (13:55)
[2022-09-16] MEDS: Amlodipine 10 MG TAB PO SCH (13:55)
[2022-09-16] MEDS: Heparin 5,000 UNITS/ML VIAL SC SCH ×3 (13:56→20:39)
[2022-09-16] MEDS: Clopidogrel Bisulfate 75 MG TAB PO SCH (13:56)
[2022-09-16 15:19] LABS: ALT (SGPT) 29 U/L (8-55); AST (SGOT) 35 U/L (5-34); Alkaline Phosphatase 111 U/L (40-110); Anion Gap 13 mmol/L (10-20); BUN (Urea Nitrogen) 20 mg/dL (9.8-20.1); Bilirubin, Total 0.4 mg/dL (0.2-1.2); Calc. Creatinine Clearance 50 mL/min (70-130); Calcium 8.5 mg/dL (7.8-10.44); Carbon Dioxide 32 mmol/L (22-29); Chloride 97 mmol/L (98-107); Estimated GFR 30; Globulin 3.6 g/dL (2.4-3.5); Glucose 132 mg/dL (70-105); Potassium 3.7 mmol/L (3.5-5.1); Protein, Total 6.6 g/dL (6.0-8.3); Sodium 138 mmol/L (136-145)
[2022-09-16 16:00] LABS: Eosinophils 2 % (0-10); Hemoglobin 8.8 g/dL (12.0-16.0); Lymphocytes 13 % (21-51); MDiff Complete? YES; Mean Corpuscular HGB CONC 32.5 g/dL (32.0-36.0); Mean Corpuscular Hemoglobin 29.9 pg (27.0-31.0); Mean Corpuscular Volume 92.1 fL (78.0-98.0); Mean Platelet Volume 8.3 fL (7.4-10.4); Monocytes 3 % (0-10); Neutrophil 81 % (42-75); Platelet Count 244 thou/uL (130-400); Platelet Morphology Comment Appears Adequate; RBC Distribution Width 11.9 % (11.5-14.5); RBC Morphology Normal; Red Blood Cell (RBC) Count 2.94 mill/uL (4.20-5.40); White Blood Cell (WBC) Count 10.3 thou/uL (4.8-10.8)
[2022-09-16] MEDS: Cefepime 0.5 GM in Sodium Chloride 0.9% 100 ML IVPB SCH (16:25)
[2022-09-16] MEDS ORDERED: Vancomycin 1 GM in Premix Bag 1 BAG IVPB SCH (17:00)
[2022-09-16] MEDS: rOPINIRole HCl 1 MG TAB PO SCH (20:41)
[2022-09-16] MEDS: Rosuvastatin 10 MG TAB PO SCH (20:41)
[2022-09-16] MEDS: Lansoprazole 15 MG/5 ML (BATCHED)UDCUP PO SCH (20:45)
[2022-09-17 06:56] LABS: Hemoglobin 7.7 g/dL (12.0-16.0); Mean Corpuscular HGB CONC 32.6 g/dL (32.0-36.0); Mean Corpuscular Hemoglobin 30.2 pg (27.0-31.0); Mean Corpuscular Volume 92.6 fL (78.0-98.0); Mean Platelet Volume 8.4 fL (7.4-10.4); Platelet Count 218 thou/uL (130-400); Red Blood Cell (RBC) Count 2.56 mill/uL (4.20-5.40); White Blood Cell (WBC) Count 10.4 thou/uL (4.8-10.8)
[2022-09-17 07:12] LABS: Anion Gap 15 mmol/L (10-20); BUN (Urea Nitrogen) 28 mg/dL (9.8-20.1); Calc. Creatinine Clearance 35 mL/min (70-130); Calcium 8.1 mg/dL (7.8-10.44); Carbon Dioxide 25 mmol/L (22-29); Chloride 97 mmol/L (98-107); Estimated GFR 20; Glucose 128 mg/dL (70-105); Sodium 133 mmol/L (136-145)
[2022-09-17 07:36] LABS: Band 11 % (5-11); Lymphocytes 18 % (21-51); MDiff Complete? YES; Monocytes 4 % (0-10); Myelocyte 1 % (0-0); Neutrophil 66 % (42-75); Platelet Morphology Comment Appears Adequate; Polychromasia SLIGHT = 2-3 cells (100X) (0-2/hpf)
[2022-09-17] MEDS: traMADol HCl 50 MG TAB PO PRN ×2 (09:08→21:41)
[2022-09-17] MEDS: Clopidogrel Bisulfate 75 MG TAB PO SCH (09:09)
[2022-09-17] MEDS: Alogliptin 6.25 MG TAB PO SCH (09:09)
[2022-09-17] MEDS: Carvedilol 6.25 MG TAB PO SCH ×2 (09:09→17:25)
[2022-09-17] MEDS: cloNIDine 0.1 MG TAB PO SCH ×3 (09:10→21:33)
[2022-09-17] MEDS: Amlodipine 10 MG TAB PO SCH (09:10)
[2022-09-17] MEDS: Heparin 5,000 UNITS/ML VIAL SC SCH ×3 (09:10→21:33)
[2022-09-17] MEDS: Azelastine 137 MCG/Spray 30 ML NS SCH ×2 (09:11→21:39)
[2022-09-17] MEDS ORDERED: FENTANYL 50 MCG/ML VIAL 50 MCG/ML VIAL SLOW IVP PRN (13:52)
[2022-09-17] MEDS ORDERED: Cefepime 0.5 GM, Admixture Fee 1 EACH in Sodium Chloride 0.9% 100 ML IVPB SCH (17:00)
[2022-09-17] MEDS: Rosuvastatin 10 MG TAB PO SCH (21:34)
[2022-09-17] MEDS: rOPINIRole HCl 1 MG TAB PO SCH (21:34)
[2022-09-17] MEDS: Lansoprazole 15 MG/5 ML (BATCHED)UDCUP PO SCH (21:34)
[2022-09-17] MEDS: Loperamide HCl 2 MG CAP PO PRN (21:38)
[2022-09-18 07:27] LABS: #Eosinphils 0.2 thou/uL (0.0-0.7); #Lymphocytes 1.5 thou/uL (1.20-3.40); #Monocytes 0.7 thou/uL (0.11-0.59); #Neutrophils 7.6 thou/uL (1.40-6.50); %Basophils 0.1 % (0.0-1.0); %Eosinophils 2.5 % (0.0-10.0); %Monocytes 6.8 % (0.0-10.0); %Neutrophils 75.6 % (42.0-75.0); Hemoglobin 8.3 g/dL (12.0-16.0); Mean Corpuscular HGB CONC 32.1 g/dL (32.0-36.0); Mean Corpuscular Hemoglobin 30.1 pg (27.0-31.0); Mean Corpuscular Volume 93.7 fL (78.0-98.0); Mean Platelet Volume 8.7 fL (7.4-10.4); Platelet Count 245 thou/uL (130-400); RBC Distribution Width 12.3 % (11.5-14.5); Red Blood Cell (RBC) Count 2.76 mill/uL (4.20-5.40)
[2022-09-18 07:53] LABS: Vancomycin, Random 18.9 ug/mL (See Comment)
[2022-09-18 07:55] LABS: Anion Gap 14 mmol/L (10-20); BUN (Urea Nitrogen) 42 mg/dL (9.8-20.1); Calc. Creatinine Clearance 30 mL/min (70-130); Calcium 8.6 mg/dL (7.8-10.44); Carbon Dioxide 26 mmol/L (22-29); Chloride 95 mmol/L (98-107); Estimated GFR 17; Glucose 176 mg/dL (70-105); Potassium 3.8 mmol/L (3.5-5.1); Sodium 131 mmol/L (136-145)
[2022-09-18] MEDS: Amlodipine 10 MG TAB PO SCH (09:07)
[2022-09-18] MEDS: cloNIDine 0.1 MG TAB PO SCH ×3 (09:07→20:26)
[2022-09-18] MEDS: Alogliptin 6.25 MG TAB PO SCH (09:07)
[2022-09-18] MEDS: Carvedilol 6.25 MG TAB PO SCH ×2 (09:07→17:13)
[2022-09-18] MEDS: Azelastine 137 MCG/Spray 30 ML NS SCH ×2 (09:07→20:24)
[2022-09-18] MEDS: Heparin 5,000 UNITS/ML VIAL SC SCH ×3 (09:08→20:30)
[2022-09-18] MEDS: Clopidogrel Bisulfate 75 MG TAB PO SCH (09:08)
[2022-09-18] MEDS ORDERED: Vancomycin HCl 750 MG in Sodium Chloride 0.9% 250 ML 250 ML IVPB SCH (17:00)
[2022-09-18] MEDS: HumaLOG 300 UNITS/3 ML VIAL SC PRN (17:13)
[2022-09-18] MEDS: rOPINIRole HCl 1 MG TAB PO SCH (20:25)
[2022-09-18] MEDS: Rosuvastatin 10 MG TAB PO SCH (20:26)
[2022-09-18] MEDS: Rifampin 300 MG CAP PO SCH (20:26)
[2022-09-18] MEDS: traMADol HCl 50 MG TAB PO PRN (20:26)
[2022-09-18] MEDS: Acetaminophen 325 MG TAB PO PRN (20:28)
[2022-09-18] MEDS: Lansoprazole 15 MG/5 ML (BATCHED)UDCUP PO SCH (20:29)
[2022-09-19] MEDS: traMADol HCl 50 MG TAB PO PRN ×3 (05:25→20:13)
[2022-09-19] MEDS: Acetaminophen 325 MG TAB PO PRN ×3 (05:26→20:13)
[2022-09-19 07:25] LABS: #Basophils 0.1 thou/uL (0.0-0.2); #Eosinphils 0.4 thou/uL (0.0-0.7); #Lymphocytes 1.4 thou/uL (1.20-3.40); #Monocytes 0.6 thou/uL (0.11-0.59); #Neutrophils 5.8 thou/uL (1.40-6.50); %Basophils 0.7 % (0.0-1.0); %Eosinophils 4.7 % (0.0-10.0); %Monocytes 6.7 % (0.0-10.0); %Neutrophils 70.9 % (42.0-75.0); Hemoglobin 8.7 g/dL (12.0-16.0); Mean Corpuscular HGB CONC 33.1 g/dL (32.0-36.0); Mean Corpuscular Hemoglobin 30.5 pg (27.0-31.0); Mean Platelet Volume 7.9 fL (7.4-10.4); Platelet Count 264 thou/uL (130-400); Red Blood Cell (RBC) Count 2.85 mill/uL (4.20-5.40); White Blood Cell (WBC) Count 8.2 thou/uL (4.8-10.8)
[2022-09-19 07:50] LABS: Anion Gap 14 mmol/L (10-20); BUN (Urea Nitrogen) 26 mg/dL (9.8-20.1); Calc. Creatinine Clearance 41 mL/min (70-130); Calcium 8.5 mg/dL (7.8-10.44); Carbon Dioxide 28 mmol/L (22-29); Chloride 95 mmol/L (98-107); Estimated GFR 24; Glucose 125 mg/dL (70-105); Potassium 3.7 mmol/L (3.5-5.1); Sodium 133 mmol/L (136-145)
[2022-09-19] MEDS: Clopidogrel Bisulfate 75 MG TAB PO SCH (08:03)
[2022-09-19] MEDS: Amlodipine 10 MG TAB PO SCH (08:03)
[2022-09-19] MEDS: Alogliptin 6.25 MG TAB PO SCH (08:03)
[2022-09-19] MEDS: cloNIDine 0.1 MG TAB PO SCH ×3 (08:03→20:12)
[2022-09-19] MEDS: Carvedilol 6.25 MG TAB PO SCH ×2 (08:03→16:19)
[2022-09-19] MEDS: Heparin 5,000 UNITS/ML VIAL SC SCH ×3 (08:03→20:20)
[2022-09-19] MEDS: Azelastine 137 MCG/Spray 30 ML NS SCH ×2 (08:59→20:21)
[2022-09-19] MEDS: Rifampin 300 MG CAP PO SCH (11:13)
[2022-09-19] MEDS: Lansoprazole 15 MG/5 ML (BATCHED)UDCUP PO SCH (20:11)
[2022-09-19] MEDS: Rosuvastatin 10 MG TAB PO SCH (20:12)
[2022-09-19] MEDS: rOPINIRole HCl 1 MG TAB PO SCH (20:13)
[2022-09-20] MEDS: Rifampin 300 MG CAP PO SCH (08:42)
[2022-09-20] MEDS: cloNIDine 0.1 MG TAB PO SCH ×3 (08:43→21:03)
[2022-09-20] MEDS: Heparin 5,000 UNITS/ML VIAL SC SCH ×3 (08:43→21:03)
[2022-09-20] MEDS: Alogliptin 6.25 MG TAB PO SCH (08:43)
[2022-09-20] MEDS: Clopidogrel Bisulfate 75 MG TAB PO SCH (08:43)
[2022-09-20] MEDS: Amlodipine 10 MG TAB PO SCH (08:43)
[2022-09-20] MEDS: Azelastine 137 MCG/Spray 30 ML NS SCH ×2 (08:44→21:07)
[2022-09-20] MEDS: Acetaminophen 325 MG TAB PO PRN ×2 (08:44→21:01)
[2022-09-20] MEDS: Carvedilol 6.25 MG TAB PO SCH ×2 (08:44→15:27)
[2022-09-20] MEDS: traMADol HCl 50 MG TAB PO PRN ×2 (10:14→21:02)
[2022-09-20] MEDS ORDERED: cloNIDine 0.1 MG TAB PO PRN (13:52)
[2022-09-20 15:06] LABS: Troponin I Less than 0.010 ng/mL (< 0.028)
[2022-09-20 17:18] LABS: Troponin I Less than 0.010 ng/mL (< 0.028)
[2022-09-20] MEDS ORDERED: Nitroglycerin 0.4 MG TAB (25 Tab Bottle) SL PRN (17:42)
[2022-09-20] MEDS ORDERED: HumaLOG 300 UNITS/3 ML VIAL SC PRN (17:45)
[2022-09-20] MEDS: Rosuvastatin 10 MG TAB PO SCH (21:01)
[2022-09-20] MEDS: rOPINIRole HCl 1 MG TAB PO SCH (21:01)
[2022-09-20] MEDS: Lansoprazole 15 MG/5 ML (BATCHED)UDCUP PO SCH (21:09)
[2022-09-20 21:23] VITALS: TEMP 98.1
[2022-09-21] MEDS: cloNIDine 0.1 MG TAB PO SCH ×2 (05:49→15:02)
[2022-09-21 06:36] LABS: #Eosinphils 0.4 thou/uL (0.0-0.7); #Lymphocytes 1.4 thou/uL (1.20-3.40); #Monocytes 0.6 thou/uL (0.11-0.59); #Neutrophils 7.3 thou/uL (1.40-6.50); %Basophils 0.3 % (0.0-1.0); %Eosinophils 3.8 % (0.0-10.0); %Lymphocytes 14.3 % (21.0-51.0); %Monocytes 5.8 % (0.0-10.0); %Neutrophils 75.8 % (42.0-75.0); Hemoglobin 8.9 g/dL (12.0-16.0); Mean Corpuscular HGB CONC 31.4 g/dL (32.0-36.0); Mean Corpuscular Hemoglobin 29.8 pg (27.0-31.0); Mean Corpuscular Volume 95.1 fl (78.0-98.0); Mean Platelet Volume 8.9 fL (7.4-10.4); Platelet Count 214 thou/uL (130-400); RBC Distribution Width 12.2 % (11.5-14.5); Red Blood Cell (RBC) Count 2.98 mill/uL (4.20-5.40); White Blood Cell (WBC) Count 9.6 thou/uL (4.8-10.8)
[2022-09-21 06:53] LABS: Anion Gap 14 mmol/L (10-20); BUN (Urea Nitrogen) 38 mg/dL (9.8-20.1); Calc. Creatinine Clearance 36 mL/min (70-130); Carbon Dioxide 23 mmol/L (22-29); Chloride 97 mmol/L (98-107); Sodium 130 mmol/L (136-145)
[2022-09-21 06:54] LABS: Calcium 8.9 mg/dL (7.8-10.44); Estimated GFR 20; Glucose 153 mg/dL (70-105)
[2022-09-21] MEDS: Carvedilol 6.25 MG TAB PO SCH (08:08)
[2022-09-21] MEDS: Clopidogrel Bisulfate 75 MG TAB PO SCH (08:48)
[2022-09-21] MEDS: Rifampin 300 MG CAP PO SCH (08:48)
[2022-09-21] MEDS: Azelastine 137 MCG/Spray 30 ML NS SCH (08:49)
[2022-09-21] MEDS: Heparin 5,000 UNITS/ML VIAL SC SCH ×2 (08:49→15:02)
[2022-09-21] MEDS: Amlodipine 10 MG TAB PO SCH (08:49)
[2022-09-21] MEDS: Alogliptin 6.25 MG TAB PO SCH (08:49)
[2022-09-21] MEDS ORDERED: Saccharomyces boulardii 250 MG CAP PO SCH (09:00)
[2022-09-21] MEDS ORDERED: Vancomycin 1 GM in Premix Bag 1 BAG IVPB SCH (09:45)
[2022-09-21] MEDS ORDERED: Vancomycin Dose by Levels Sliding Scale (Wt > 99) FS SCH (10:00)
[2022-09-21] MEDS ORDERED: Cefepime 2 GM in Sodium Chloride 0.9% 100 ML IVPB SCH (11:00)
[2022-09-21] MEDS: VANCOMYCIN 2 GRAM/500 ML BAG 2 GM in Premix Bag 1 BAG IVPB SCH ×3 (11:30→13:11)
[2022-09-21 15:13] VITALS: BP 184/81
== END 2022-09-21 16:13 | disposition home or self-care (01) | DRG 853 ==
LOC: ERS 15:03 → 2NO 18:20 → T4-B 09-16 12:34
PROVIDERS: ADMIT Hospitalist; ATTEND Internal Medicine
PROC: 0Y6M0Z9 Detachment at Right Foot, Partial 1st Ray, Open Approach (ICD-10-PCS; principal; 2022-09-13)
PROC: 0Y6M0ZB Detachment at Right Foot, Partial 2nd Ray, Open Approach (ICD-10-PCS; 2022-09-13)
PROC: 0Y6M0ZC Detachment at Right Foot, Partial 3rd Ray, Open Approach (ICD-10-PCS; 2022-09-13)
PROC: 0Y6M0ZD Detachment at Right Foot, Partial 4th Ray, Open Approach (ICD-10-PCS; 2022-09-13)
PROC: 0Y6M0ZF Detachment at Right Foot, Partial 5th Ray, Open Approach (ICD-10-PCS; 2022-09-13)
PROC: 5A1D70Z Performance of Urinary Filtration, Intermittent, Less than 6 Hours Per Day (ICD-10-PCS; 2022-09-16)
PROC: 0JDQ0ZZ Extraction of Right Foot Subcutaneous Tissue and Fascia, Open Approach (ICD-10-PCS; 2022-09-17)
DX: A41.01 Sepsis due to Methicillin susceptible Staphylococcus aureus (principal); N18.6 End stage renal disease; A52.16 Charcot's arthropathy (tabetic); L03.115 Cellulitis of right lower limb; I12.0 Hypertensive chronic kidney disease with stage 5 chronic kidney disease or end stage renal disease; E87.1 Hypo-osmolality and hyponatremia; I96 Gangrene, not elsewhere classified; M86.8X7 Other osteomyelitis, ankle and foot; Z68.41 Body mass index [BMI] 40.0-44.9, adult; L02.611 Cutaneous abscess of right foot; E11.621 Type 2 diabetes mellitus with foot ulcer; I25.10 Atherosclerotic heart disease of native coronary artery without angina pectoris; E11.22 Type 2 diabetes mellitus with diabetic chronic kidney disease; J45.909 Unspecified asthma, uncomplicated; F41.9 Anxiety disorder, unspecified; J44.9 Chronic obstructive pulmonary disease, unspecified; D64.9 Anemia, unspecified; L97.519 Non-pressure chronic ulcer of other part of right foot with unspecified severity; G47.33 Obstructive sleep apnea (adult) (pediatric); E11.42 Type 2 diabetes mellitus with diabetic polyneuropathy; E66.01 Morbid (severe) obesity due to excess calories; K21.9 Gastro-esophageal reflux disease without esophagitis; E78.5 Hyperlipidemia, unspecified; G25.81 Restless legs syndrome; E88.81 Metabolic syndrome and other insulin resistance; F32.A Depression, unspecified; G56.00 Carpal tunnel syndrome, unspecified upper limb; M79.7 Fibromyalgia; E11.69 Type 2 diabetes mellitus with other specified complication; Z99.2 Dependence on renal dialysis; Z89.429 Acquired absence of other toe(s), unspecified side; Z88.2 Allergy status to sulfonamides; Z88.8 Allergy status to other drugs, medicaments and biological substances; Z88.6 Allergy status to analgesic agent; Z88.0 Allergy status to penicillin; Z91.013 Allergy to seafood; Z79.82 Long term (current) use of aspirin; Z79.84 Long term (current) use of oral hypoglycemic drugs; Z79.899 Other long term (current) drug therapy; Z20.822 Contact with and (suspected) exposure to COVID-19; Z79.02 Long term (current) use of antithrombotics/antiplatelets; Z95.5 Presence of coronary angioplasty implant and graft; Z90.710 Acquired absence of both cervix and uterus; Z90.49 Acquired absence of other specified parts of digestive tract; Z90.89 Acquired absence of other organs; I25.2 Old myocardial infarction
CPT/HCPCS: 36415; 36416; 70450; 71045; 71046; 80048; 80053; 80202; 83605; 84484; 85025; 87040; 87070; 87077; 87086; 87186; 87205; 87340; 87811; 88305; 88311; 90935; 93005; 93010; 94640; 96365; 96367; 96375; 97139; G0257; J0692; J1644; J1815; J1885; J2405; J2704; J3010; J3370; J3490; J7611; J7620; U0002

== ENCOUNTER 2022-12-03 03:48 | Inpatient (IN) | payer OTHER ==
[2022-12-03] MEDS ORDERED: Propofol 1,000 MG/100 ML VIAL IV ONE (04:09)
[2022-12-03] MEDS ORDERED: Aspirin 300 MG Suppository ONE (04:12)
[2022-12-03] MEDS ORDERED: Cefepime 2 GM VIAL ONE (04:12)
[2022-12-03] MEDS ORDERED: Vancomycin 1 GM/200 ML (FROZEN) BAG ONE (04:12)
[2022-12-03 04:15] LABS: Actual Bicarbonate (HCO3a) 20.4 mEq/L (22-28); Analyzer IN Cardio ER; Base Excess (BEa) -8.6 mEq/L (-2.0 to +3.0); CO2 Tension 57.4 mmHg (35.0-45.0); Calcium, Ionized (arterial) 1.11 mmol/L (1.12-1.30); Carboxyhemoglobin (COHb) 0.3 gm% (0.0-3.0); Hemoglobin (Hb) 13.8 g/dL (12.0-16.0); O2 Tension (PaO2), arterial 270.4 mmHg (80.0-100.0); Potassium - ABG Lab 4.77 mmol/L (3.70-5.30)
[2022-12-03 04:17] LABS: Actual Bicarbonate (HCO3v) 21 mEq/L (22-28); Analyzer IN Cardio ER; Base Excess -9.1 mEq/L (-2.0 to +3.0); Calcium, Ionized (venous) 1.07 mmol/L (1.16-1.32); Chloride (VBG) 108 mmol/L (98-106); Hemoglobin (Hb) 14.1 g/dL (11.7-16.0)
[2022-12-03 04:18] LABS: pH (venous) 7.14 (7.32-7.43)
[2022-12-03 04:19] LABS: pH, Arterial 7.17 (7.35-7.45)
[2022-12-03 04:20] LABS: Puncture Site LRA
[2022-12-03 04:36] LABS: Hemoglobin 13.4 g/dL (12.0-16.0); Mean Corpuscular HGB CONC 34.3 g/dL (32.0-36.0); Mean Corpuscular Hemoglobin 30.7 pg (27.0-31.0); Mean Corpuscular Volume 89.4 fl (78.0-98.0); Mean Platelet Volume 8.5 fL (7.4-10.4); Platelet Count 338 10x3/uL (130-400); RBC Distribution Width 13.5 % (11.5-14.5); Red Blood Cell (RBC) Count 4.36 mill/uL (4.20-5.40); White Blood Cell (WBC) Count 26.4 10x3/uL (4.8-10.8)
[2022-12-03 04:38] LABS: Bilirubin Negative (Negative); Blood, Urine 1+ (Negative); Clarity Clear (Clear); Glucose, Urine (Dipstick) 50 mg/dL (Negative); Ketone, Urine Negative (Negative); Leukocyte Negative Leu/uL (Negative); Nitrite Negative (Negative); Protein, Urine (Dipstick) 200 mg/dL (Neg-Trace); Specific Gravity, Urine 1.007 (1.002-1.036); Urobilinogen Normal mg/dL (Less than 2)
[2022-12-03 04:49] LABS: ALT (SGPT) 15 U/L (8-55); AST (SGOT) 25 U/L (5-34); Albumin 3.4 g/dL (3.5-5.0); Alkaline Phosphatase 107 U/L (40-110); Anion Gap 18 mmol/L (10-20); BUN (Urea Nitrogen) 36 mg/dL (9.8-20.1); Bilirubin, Total 0.3 mg/dL (0.2-1.2); Calc. Creatinine Clearance 0 mL/min (70-130); Calcium 8.3 mg/dL (7.8-10.44); Carbon Dioxide 16 mmol/L (22-29); Chloride 108 mmol/L (98-107); Estimated GFR 16; Globulin 3.8 g/dL (2.4-3.5); Glucose 290 mg/dL (70-105); Lipase 69 U/L (8-78); Magnesium 1.6 mg/dL (1.6-2.6); Potassium 4.5 mmol/L (3.5-5.1); Protein, Total 7.2 g/dL (6.0-8.3); Sodium 137 mmol/L (136-145)
[2022-12-03 04:49] LABS: SARS-CoV-2 NAA Rapid Test Not Detected (NotDetected)
[2022-12-03 05:13] LABS: CKMB 3.8 ng/mL (0-6.6)
[2022-12-03] MEDS ORDERED: Furosemide 40 MG/4 ML VIAL ONE (05:13)
[2022-12-03 05:14] LABS: Band 10 % (5-11); Eosinophils 2 % (0-10); Lymphocytes 18 % (21-51); MDiff Complete? YES; Monocytes 5 % (0-10); Neutrophil 65 % (42-75); Platelet Morphology Comment Appears Adequate; RBC Morphology Normal
[2022-12-03] MEDS ORDERED: LORazepam 2 MG/ML SYR.(CARPUJECT) ONE (05:37)
[2022-12-03] MEDS ORDERED: Fentanyl 100 MCG/2 ML VIAL ONE ×2 (05:43→06:00)
[2022-12-03 06:01] LABS: INR-International Normal Ratio 1.2; Prothrombin Time 15.2 sec (12.0-14.7)
[2022-12-03] MEDS ORDERED: Midazolam HCl 2 mg/2 ml Vial ONE (06:01)
[2022-12-03 06:02] LABS: PTT 28.3 sec (22.9-36.1)
[2022-12-03] MEDS ORDERED: Ventilator Sedation Protocol 1 EACH FS SCH (06:30)
[2022-12-03] MEDS ORDERED: Acetaminophen 325 MG Suppository PR PRN (06:30)
[2022-12-03] MEDS ORDERED: Midazolam HCl 2 mg/2 ml Vial SLOW IVP PRN (06:38)
[2022-12-03] MEDS ORDERED: Morphine 4 MG/ML VIAL SLOW IVP PRN (06:45)
[2022-12-03] MEDS ORDERED: DISCONTINUE PREVIOUS NARCOTIC PAIN MEDICATIONS AND BENZODIAZEPINES FS SCH (06:45)
[2022-12-03] MEDS ORDERED: Propofol BOLUS 1,000 MG/100 ML VIAL IV PRN (06:45)
[2022-12-03] MEDS: Fentanyl CADD 100 ML IV SCH (07:14)
[2022-12-03] MEDS: Ipratropium/Albuterol 3 ML NEB NEB SCH ×4 (07:33→23:47)
[2022-12-03] MEDS ORDERED: Fentanyl BOLUS 250 ML IVPB PRN (07:45)
[2022-12-03] MEDS: Propofol 1,000 MG/100 ML VIAL IV PRN ×3 (08:08→21:26)
[2022-12-03 08:44] LABS: Lactic Acid 1.9 mmol/L (0.5-2.2)
[2022-12-03] MEDS ORDERED: Cefepime 2 GM in Sodium Chloride 0.9% 100 ML IVPB SCH (09:00)
[2022-12-03] MEDS ORDERED: methylPREDNISolone Sod Succ 40 MG VIAL IVP SCH (09:00)
[2022-12-03 09:16] LABS: Troponin I 1.117 ng/mL (< 0.028)
[2022-12-03 09:46] LABS: Glucose 411 mg/dL (70-105)
[2022-12-03 10:50] LABS: Actual Bicarbonate (HCO3v) 19 mEq/L (22-28); Base Excess -5.9 mEq/L (-2.0 to +3.0); Calcium, Ionized (venous) 1.06 mmol/L (1.16-1.32); Chloride (VBG) 105 mmol/L (98-106); Hemoglobin (Hb) 11.4 g/dL (11.7-16.0); Potassium (VBG) 5.02 mmol/L (3.70-5.30); Sodium 133.8 mmol/L (133-146); pH (venous) 7.36 (7.32-7.43)
[2022-12-03 11:30] LABS: Critical Call Chem Troponin I RESULT DECREASING; Troponin I 1.065 ng/mL (< 0.028)
[2022-12-03] MEDS ORDERED: Insulin Glargine 30 UNITS/0.3 ML VIAL SC SCH (12:15)
[2022-12-03] MEDS ORDERED: Vancomycin 1 GM in Premix Bag 1 BAG IVPB SCH (12:30)
[2022-12-03] MEDS ORDERED: Vancomycin Diaylsis Sliding Scale (Wt 71-99) FS SCH (12:30)
[2022-12-03] MEDS: Furosemide 40 MG/4 ML VIAL SLOW IVP SCH (13:02)
[2022-12-03 14:07] LABS: Glucose 541 mg/dL (70-105)
[2022-12-03 17:02] LABS: HBSAg Index 0.34 S/CO (0-0.99); Hep B Surf Ag Non-Reactive S/CO (NonReactive)
[2022-12-03 17:03] LABS: HBSAB Concentration Less than 8.00 mIU/mL; Hep B Surf AB Non-Reactive (NonReactive)
[2022-12-03 17:38] LABS: Glucose 234 mg/dL (70-105)
[2022-12-03] MEDS: Heparin 5,000 UNITS/ML VIAL SC SCH (21:26)
[2022-12-03 21:47] LABS: Glucose 271 mg/dL (70-105)
[2022-12-03] MEDS: Insulin Glargine 30 UNITS/0.3 ML VIAL SC SCH (22:17)
[2022-12-03] MEDS: HumaLOG 300 UNITS/3 ML VIAL SC PRN (22:20)
[2022-12-04 01:46] LABS: Glucose 270 mg/dL (70-105)
[2022-12-04] MEDS: Fentanyl CADD 100 ML IV SCH (02:00)
[2022-12-04] MEDS: HumaLOG 300 UNITS/3 ML VIAL SC PRN ×2 (02:24→05:44)
[2022-12-04 05:04] LABS: #Lymphocytes 0.8 thou/uL (1.20-3.40); #Monocytes 0.6 thou/uL (0.11-0.59); #Neutrophils 9.2 thou/uL (1.40-6.50); %Basophils 0.1 % (0.0-1.0); %Eosinophils 0.1 % (0.0-10.0); %Lymphocytes 7.6 % (21.0-51.0); %Monocytes 5.4 % (0.0-10.0); %Neutrophils 86.9 % (42.0-75.0); Hemoglobin 10.8 g/dL (12.0-16.0); Mean Corpuscular HGB CONC 35.6 g/dL (32.0-36.0); Mean Platelet Volume 8.7 fL (7.4-10.4); Platelet Count 183 10x3/uL (130-400); RBC Distribution Width 13.3 % (11.5-14.5); White Blood Cell (WBC) Count 10.6 10x3/uL (4.8-10.8)
[2022-12-04] MEDS: Furosemide 40 MG/4 ML VIAL SLOW IVP SCH ×2 (05:20→12:05)
[2022-12-04] MEDS: Propofol 1,000 MG/100 ML VIAL IV PRN (05:23)
[2022-12-04 05:30] LABS: Anion Gap 12 mmol/L (10-20); BUN (Urea Nitrogen) 31 mg/dL (9.8-20.1); Calc. Creatinine Clearance 35 mL/min (70-130); Carbon Dioxide 30 mmol/L (22-29); Chloride 99 mmol/L (98-107); Estimated GFR 21; Glucose 253 mg/dL (70-105); Potassium 3.3 mmol/L (3.5-5.1); Sodium 138 mmol/L (136-145)
[2022-12-04] MEDS: Ipratropium/Albuterol 3 ML NEB NEB SCH ×4 (06:58→23:30)
[2022-12-04 07:36] LABS: Vancomycin, Random 27.3 ug/mL (See Comment)
[2022-12-04] MEDS: Pantoprazole 40 MG VIAL IVP SCH (08:13)
[2022-12-04] MEDS: Heparin 5,000 UNITS/ML VIAL SC SCH ×2 (08:14→20:49)
[2022-12-04] MEDS: Insulin Glargine 30 UNITS/0.3 ML VIAL SC SCH ×2 (08:14→20:50)
[2022-12-04] MEDS: Cefepime 0.5 GM, Admixture Fee 1 EACH in Sodium Chloride 0.9% 100 ML IVPB SCH (08:15)
[2022-12-04] MEDS ORDERED: methylPREDNISolone Sod Succ 40 MG VIAL IVP SCH (09:00)
[2022-12-04] MEDS ORDERED: DC Sedation Protocol FS ONE (09:17)
[2022-12-05 04:45] LABS: #Lymphocytes 1.6 thou/uL (1.20-3.40); #Monocytes 0.6 thou/uL (0.11-0.59); #Neutrophils 7.7 thou/uL (1.40-6.50); %Basophils 0.1 % (0.0-1.0); %Eosinophils 0.2 % (0.0-10.0); %Lymphocytes 16.1 % (21.0-51.0); %Neutrophils 77.7 % (42.0-75.0); Hemoglobin 10.4 g/dL (12.0-16.0); Mean Corpuscular HGB CONC 36.6 g/dL (32.0-36.0); Mean Corpuscular Hemoglobin 32.8 pg (27.0-31.0); Mean Corpuscular Volume 89.7 fl (78.0-98.0); Mean Platelet Volume 8.8 fL (7.4-10.4); Platelet Count 157 10x3/uL (130-400); RBC Distribution Width 13.2 % (11.5-14.5); Red Blood Cell (RBC) Count 3.17 mill/uL (4.20-5.40); White Blood Cell (WBC) Count 9.9 10x3/uL (4.8-10.8)
[2022-12-05 04:49] LABS: Anion Gap 17 mmol/L (10-20); BUN (Urea Nitrogen) 42 mg/dL (9.8-20.1); Calc. Creatinine Clearance 26 mL/min (70-130); Calcium 8.3 mg/dL (7.8-10.44); Carbon Dioxide 29 mmol/L (22-29); Cardiac Risk 4.3 (Less than 4.5); Chloride 99 mmol/L (98-107); Cholesterol 146 mg/dl (< 200 Desired); Estimated GFR 15; Glucose 120 mg/dL (70-105); HDL Cholesterol 34 mg/dL (>60 Neg Risk); LDL Cholesterol, Calculated 46 mg/dL; Potassium 3.6 mmol/L (3.5-5.1); Sodium 141 mmol/L (136-145); Triglycerides 332 mg/dL (Less than 150)
[2022-12-05] MEDS: Furosemide 40 MG/4 ML VIAL SLOW IVP SCH ×2 (05:51→13:41)
[2022-12-05 05:58] VITALS: BMI 40.1
[2022-12-05] MEDS: Ipratropium/Albuterol 3 ML NEB NEB SCH ×4 (06:44→23:51)
[2022-12-05] MEDS ORDERED: Regadenoson 0.4 MG/5 ML SYRINGE ONE (08:18)
[2022-12-05] MEDS ORDERED: methylPREDNISolone Sod Succ 40 MG VIAL IVP SCH (09:00)
[2022-12-05] MEDS ORDERED: Dextrose 50% Abboject 50 ML SYRINGE IVP PRN (09:45)
[2022-12-05] MEDS ORDERED: Dextrose 5% in Water 1,000 ML IV PRN (09:45)
[2022-12-05] MEDS ORDERED: predniSONE 20 MG TAB PO SCH (11:00)
[2022-12-05] MEDS: Heparin 5,000 UNITS/ML VIAL SC SCH ×2 (12:42→21:11)
[2022-12-05] MEDS: Aspirin 81 mg Enteric Coated Tablet PO SCH (12:51)
[2022-12-05] MEDS: Clopidogrel Bisulfate 75 MG TAB PO SCH (12:53)
[2022-12-05] MEDS: Pantoprazole 40 MG VIAL IVP SCH (12:53)
[2022-12-05] MEDS: HumaLOG 300 UNITS/3 ML VIAL SC PRN ×3 (13:45→21:30)
[2022-12-05] MEDS ORDERED: Cefepime 0.5 GM, Admixture Fee 1 EACH in Sodium Chloride 0.9% 100 ML IVPB SCH (14:00)
[2022-12-05] MEDS ORDERED: Carvedilol 6.25 MG TAB PO SCH ×2 (14:30→17:00)
[2022-12-05] MEDS: Carvedilol 6.25 MG TAB PO SCH (18:45)
[2022-12-05] MEDS: Rosuvastatin 20 MG TAB PO SCH (21:12)
[2022-12-05] MEDS: hydrOXYzine 25 MG TAB PO SCH (21:12)
[2022-12-05] MEDS: Mirtazapine 30 MG TAB PO SCH (21:13)
[2022-12-05] MEDS: Sertraline 100 MG TAB PO SCH (21:13)
[2022-12-06] MEDS: Insulin Glargine 30 UNITS/0.3 ML VIAL SC SCH ×2 (02:43→10:49)
[2022-12-06] MEDS: Cefepime 0.5 GM, Admixture Fee 1 EACH in Sodium Chloride 0.9% 100 ML IVPB SCH ×2 (02:44→18:20)
[2022-12-06] MEDS: Furosemide 40 MG/4 ML VIAL SLOW IVP SCH ×2 (05:14→14:33)
[2022-12-06 05:47] LABS: #Eosinphils 0.2 thou/uL (0.0-0.7); #Lymphocytes 1.6 thou/uL (1.20-3.40); #Monocytes 0.5 thou/uL (0.11-0.59); #Neutrophils 6.1 thou/uL (1.40-6.50); %Basophils 0.4 % (0.0-1.0); %Lymphocytes 18.8 % (21.0-51.0); %Monocytes 6.2 % (0.0-10.0); %Neutrophils 72.7 % (42.0-75.0); Hemoglobin 10.9 g/dL (12.0-16.0); Mean Corpuscular HGB CONC 34.1 g/dL (32.0-36.0); Mean Corpuscular Hemoglobin 30.5 pg (27.0-31.0); Mean Corpuscular Volume 89.3 fl (78.0-98.0); Mean Platelet Volume 8.8 fL (7.4-10.4); Platelet Count 183 10x3/uL (130-400); RBC Distribution Width 12.9 % (11.5-14.5); Red Blood Cell (RBC) Count 3.59 mill/uL (4.20-5.40); White Blood Cell (WBC) Count 8.5 10x3/uL (4.8-10.8)
[2022-12-06 05:54] LABS: Anion Gap 17 mmol/L (10-20); BUN (Urea Nitrogen) 46 mg/dL (9.8-20.1); Calc. Creatinine Clearance 25 mL/min (70-130); Calcium 8.2 mg/dL (7.8-10.44); Carbon Dioxide 26 mmol/L (22-29); Chloride 98 mmol/L (98-107); Estimated GFR 14; Glucose 203 mg/dL (70-105); Potassium 3.3 mmol/L (3.5-5.1); Sodium 138 mmol/L (136-145); Vancomycin, Random 15.4 ug/mL (See Comment)
[2022-12-06] MEDS: Ipratropium/Albuterol 3 ML NEB NEB SCH ×3 (06:50→19:48)
[2022-12-06] MEDS ORDERED: Potassium Chloride 20 MEQ TAB PO SCH (10:30)
[2022-12-06] MEDS: Aspirin 81 mg Enteric Coated Tablet PO SCH (10:46)
[2022-12-06] MEDS: Carvedilol 6.25 MG TAB PO SCH ×2 (10:46→18:20)
[2022-12-06] MEDS: Clopidogrel Bisulfate 75 MG TAB PO SCH (10:46)
[2022-12-06] MEDS: predniSONE 20 MG TAB PO SCH (10:46)
[2022-12-06] MEDS: Heparin 5,000 UNITS/ML VIAL SC SCH ×2 (10:51→21:16)
[2022-12-06] MEDS: Pantoprazole 40 MG VIAL IVP SCH (10:51)
[2022-12-06] MEDS ORDERED: Vancomycin HCl 750 MG in Sodium Chloride 0.9% 250 ML 250 ML IVPB SCH (17:00)
[2022-12-06] MEDS: Rosuvastatin 20 MG TAB PO SCH (21:16)
[2022-12-06] MEDS: hydrOXYzine 25 MG TAB PO SCH (21:16)
[2022-12-06] MEDS: Sertraline 100 MG TAB PO SCH (21:16)
[2022-12-06] MEDS: Mirtazapine 30 MG TAB PO SCH (21:16)
[2022-12-07] MEDS: Ipratropium/Albuterol 3 ML NEB NEB SCH ×4 (01:01→19:17)
[2022-12-07 05:04] LABS: #Eosinphils 0.3 thou/uL (0.0-0.7); #Lymphocytes 1.8 thou/uL (1.20-3.40); #Monocytes 0.4 thou/uL (0.11-0.59); #Neutrophils 5.4 thou/uL (1.40-6.50); %Eosinophils 3.9 % (0.0-10.0); %Lymphocytes 23.1 % (21.0-51.0); %Monocytes 5.3 % (0.0-10.0); %Neutrophils 67.7 % (42.0-75.0); Hemoglobin 11.5 g/dL (12.0-16.0); Mean Corpuscular HGB CONC 34.4 g/dL (32.0-36.0); Mean Corpuscular Hemoglobin 30.4 pg (27.0-31.0); Mean Corpuscular Volume 88.4 fl (78.0-98.0); Mean Platelet Volume 8.5 fL (7.4-10.4); Platelet Count 195 10x3/uL (130-400); RBC Distribution Width 12.8 % (11.5-14.5); Red Blood Cell (RBC) Count 3.77 mill/uL (4.20-5.40); White Blood Cell (WBC) Count 7.9 10x3/uL (4.8-10.8)
[2022-12-07 05:27] LABS: Anion Gap 11 mmol/L (10-20); BUN (Urea Nitrogen) 32 mg/dL (9.8-20.1); Calc. Creatinine Clearance 35 mL/min (70-130); Calcium 8.2 mg/dL (7.8-10.44); Carbon Dioxide 30 mmol/L (22-29); Chloride 102 mmol/L (98-107); Estimated GFR 21; Glucose 144 mg/dL (70-105); Potassium 3.5 mmol/L (3.5-5.1); Sodium 139 mmol/L (136-145)
[2022-12-07] MEDS: Furosemide 40 MG/4 ML VIAL SLOW IVP SCH ×2 (05:44→14:29)
[2022-12-07 07:22] LABS: Vancomycin, Random 17.1 ug/mL (See Comment)
[2022-12-07] MEDS: Carvedilol 6.25 MG TAB PO SCH ×2 (12:59→18:46)
[2022-12-07] MEDS: Insulin Glargine 30 UNITS/0.3 ML VIAL SC SCH (12:59)
[2022-12-07] MEDS: predniSONE 20 MG TAB PO SCH (14:28)
[2022-12-07] MEDS: Aspirin 81 mg Enteric Coated Tablet PO SCH (14:28)
[2022-12-07] MEDS: Heparin 5,000 UNITS/ML VIAL SC SCH ×3 (14:28→22:00)
[2022-12-07] MEDS: Pantoprazole 40 MG VIAL IVP SCH (14:29)
[2022-12-07] MEDS: Clopidogrel Bisulfate 75 MG TAB PO SCH (14:54)
[2022-12-07] MEDS ORDERED: Vancomycin HCl 750 MG in Sodium Chloride 0.9% 250 ML 250 ML IVPB SCH (17:00)
[2022-12-07] MEDS: Cefepime 0.5 GM, Admixture Fee 1 EACH in Sodium Chloride 0.9% 100 ML IVPB SCH (21:13)
[2022-12-07] MEDS: Sertraline 100 MG TAB PO SCH (21:17)
[2022-12-07] MEDS: Rosuvastatin 20 MG TAB PO SCH (21:19)
[2022-12-07] MEDS: hydrOXYzine 25 MG TAB PO SCH (21:22)
[2022-12-07] MEDS: Mirtazapine 30 MG TAB PO SCH (21:22)
[2022-12-08] MEDS: Ipratropium/Albuterol 3 ML NEB NEB SCH ×4 (00:40→18:18)
[2022-12-08] MEDS ORDERED: rOPINIRole HCl 2 MG TAB PO SCH (01:45)
[2022-12-08 05:22] LABS: #Eosinphils 0.2 thou/uL (0.0-0.7); #Lymphocytes 2.1 thou/uL (1.20-3.40); #Monocytes 0.5 thou/uL (0.11-0.59); #Neutrophils 7.1 thou/uL (1.40-6.50); %Eosinophils 2.5 % (0.0-10.0); %Lymphocytes 21.3 % (21.0-51.0); %Monocytes 5.3 % (0.0-10.0); %Neutrophils 70.9 % (42.0-75.0); Hemoglobin 11.1 g/dL (12.0-16.0); Mean Corpuscular Hemoglobin 30.7 pg (27.0-31.0); Mean Corpuscular Volume 87.7 fl (78.0-98.0); Mean Platelet Volume 8.7 fL (7.4-10.4); Platelet Count 202 10x3/uL (130-400); Red Blood Cell (RBC) Count 3.63 mill/uL (4.20-5.40)
[2022-12-08] MEDS: Furosemide 40 MG/4 ML VIAL SLOW IVP SCH ×2 (05:44→13:17)
[2022-12-08 05:45] LABS: Anion Gap 13 mmol/L (10-20); BUN (Urea Nitrogen) 33 mg/dL (9.8-20.1); Calc. Creatinine Clearance 30 mL/min (70-130); Calcium 8.5 mg/dL (7.8-10.44); Carbon Dioxide 25 mmol/L (22-29); Chloride 100 mmol/L (98-107); Estimated GFR 18; Glucose 161 mg/dL (70-105); Potassium 3.6 mmol/L (3.5-5.1); Sodium 134 mmol/L (136-145)
[2022-12-08 07:04] LABS: Vancomycin, Random 12.1 ug/mL (See Comment)
[2022-12-08] MEDS: Carvedilol 6.25 MG TAB PO SCH ×2 (09:55→19:17)
[2022-12-08] MEDS: Aspirin 81 mg Enteric Coated Tablet PO SCH (09:56)
[2022-12-08] MEDS: Clopidogrel Bisulfate 75 MG TAB PO SCH (09:56)
[2022-12-08] MEDS: predniSONE 20 MG TAB PO SCH (09:56)
[2022-12-08] MEDS: Insulin Glargine 30 UNITS/0.3 ML VIAL SC SCH (09:57)
[2022-12-08] MEDS: Heparin 5,000 UNITS/ML VIAL SC SCH (09:57)
[2022-12-08] MEDS: Pantoprazole 40 MG VIAL IVP SCH (09:57)
[2022-12-08 12:26] VITALS: BP 173/87; TEMP 98.9
[2022-12-08] MEDS: Cefepime 0.5 GM, Admixture Fee 1 EACH in Sodium Chloride 0.9% 100 ML IVPB SCH (19:18)
[2022-12-08] MEDS ORDERED: rOPINIRole HCl 1 MG TAB PO SCH (21:00)
== END 2022-12-08 18:15 | disposition home or self-care (01) | DRG 208 ==
LOC: ERS 03:48 → CCU 05:52 → 2SW 12-06 01:44
PROVIDERS: ADMIT Internal Medicine; ATTEND Internal Medicine
PROC: 5A1945Z Respiratory Ventilation, 24-96 Consecutive Hours (ICD-10-PCS; principal; 2022-12-03)
PROC: 5A1D70Z Performance of Urinary Filtration, Intermittent, Less than 6 Hours Per Day (ICD-10-PCS; 2022-12-03)
PROC: 0BH17EZ Insertion of Endotracheal Airway into Trachea, Via Natural or Artificial Opening (ICD-10-PCS; 2022-12-03)
PROC: 0D9670Z Drainage of Stomach with Drainage Device, Via Natural or Artificial Opening (ICD-10-PCS; 2022-12-03)
PROC: 06HY33Z Insertion of Infusion Device into Lower Vein, Percutaneous Approach (ICD-10-PCS; 2022-12-03)
PROC: 3E03329 Introduction of Other Anti-infective into Peripheral Vein, Percutaneous Approach (ICD-10-PCS; 2022-12-03)
DX: J96.01 Acute respiratory failure with hypoxia (principal); N18.6 End stage renal disease; Z20.822 Contact with and (suspected) exposure to COVID-19; A41.9 Sepsis, unspecified organism; I21.A1 Myocardial infarction type 2; I50.33 Acute on chronic diastolic (congestive) heart failure; R65.20 Severe sepsis without septic shock; G93.41 Metabolic encephalopathy; T81.49XA Infection following a procedure, other surgical site, initial encounter; E87.4 Mixed disorder of acid-base balance; J96.02 Acute respiratory failure with hypercapnia; Y84.8 Other medical procedures as the cause of abnormal reaction of the patient, or of later complication, without mention of misadventure at the time of the procedure; E87.70 Fluid overload, unspecified; E11.22 Type 2 diabetes mellitus with diabetic chronic kidney disease; I25.10 Atherosclerotic heart disease of native coronary artery without angina pectoris; F41.9 Anxiety disorder, unspecified; E11.65 Type 2 diabetes mellitus with hyperglycemia; E66.01 Morbid (severe) obesity due to excess calories; G47.33 Obstructive sleep apnea (adult) (pediatric); D63.1 Anemia in chronic kidney disease; E87.6 Hypokalemia; H40.9 Unspecified glaucoma; E11.40 Type 2 diabetes mellitus with diabetic neuropathy, unspecified; K21.9 Gastro-esophageal reflux disease without esophagitis; E78.1 Pure hyperglyceridemia; Z78.1 Physical restraint status; Z68.35 Body mass index [BMI] 35.0-35.9, adult; Z99.2 Dependence on renal dialysis; Z88.2 Allergy status to sulfonamides; Z88.8 Allergy status to other drugs, medicaments and biological substances; Z88.1 Allergy status to other antibiotic agents; Z88.0 Allergy status to penicillin; Z91.013 Allergy to seafood; Z79.899 Other long term (current) drug therapy; Z79.02 Long term (current) use of antithrombotics/antiplatelets; Z79.82 Long term (current) use of aspirin; Z79.51 Long term (current) use of inhaled steroids; Z95.5 Presence of coronary angioplasty implant and graft; Z80.9 Family history of malignant neoplasm, unspecified; Z89.422 Acquired absence of other left toe(s)
CPT/HCPCS: 31500; 36415; 36416; 36556; 36600; 51702; 71045; 78452; 80048; 80053; 80061; 80202; 81003; 81015; 82553; 82805; 82947; 83605; 83690; 83735; 83880; 84484; 85025; 85610; 85730; 86706; 87040; 87086; 87340; 90935; 93005; 93010; 93017; 93306; 94002; 94003; 94640; 96365; 96367; 96374; 96375; 97139; A9500; C9113; G0257; J0692; J1644; J1815; J1940; J2060; J2250; J2704; J2785; J2920; J3010; J3370; J3370-JW; J3490; J7050; J7512; J7620; U0002

== ENCOUNTER 2023-02-24 14:56 | Emergency (ER) | payer OTHER ==
[2023-02-24] MEDS ORDERED: Aspirin Chewable 81 MG TAB ONE ×2 (15:23)
[2023-02-24 16:00] LABS: Actual Bicarbonate (HCO3v) 24 mEq/L (22-28); Base Excess -1.7 mEq/L (-2.0 to +3.0); Calcium, Ionized (venous) 1.11 mmol/L (1.16-1.32); Chloride (VBG) 97 mmol/L (98-106); Hemoglobin (Hb) 15.6 g/dL (11.7-16.0); Potassium (VBG) 4.51 mmol/L (3.70-5.30); Sodium 136.8 mmol/L (133-146); pH (venous) 7.37 (7.32-7.43)
[2023-02-24 16:04] LABS: #Eosinphils 0.1 thou/uL (0.0-0.7); #Lymphocytes 1.1 thou/uL (1.20-3.40); #Monocytes 0.3 thou/uL (0.11-0.59); #Neutrophils 8.3 thou/uL (1.40-6.50); %Basophils 0.3 % (0.0-1.0); %Eosinophils 1.2 % (0.0-10.0); %Lymphocytes 10.8 % (21.0-51.0); %Monocytes 3.2 % (0.0-10.0); %Neutrophils 84.5 % (42.0-75.0); Hemoglobin 12.7 g/dL (12.0-16.0); Mean Corpuscular Hemoglobin 30.9 pg (27.0-31.0); Mean Platelet Volume 7.7 fL (7.4-10.4); Platelet Count 244 10x3/uL (130-400); RBC Distribution Width 11.8 % (11.5-14.5); Red Blood Cell (RBC) Count 4.09 mill/uL (4.20-5.40); White Blood Cell (WBC) Count 9.8 10x3/uL (4.8-10.8)
[2023-02-24 16:21] LABS: ALT (SGPT) 18 U/L (8-55); AST (SGOT) 18 U/L (5-34); Albumin 4.2 g/dL (3.5-5.0); Alkaline Phosphatase 132 U/L (40-110); Anion Gap 14 mmol/L (10-20); BUN (Urea Nitrogen) 22 mg/dL (9.8-20.1); Bilirubin, Total 0.2 mg/dL (0.2-1.2); CK (CPK) 54 U/L (29-168); Calc. Creatinine Clearance 0 mL/min (70-130); Carbon Dioxide 27 mmol/L (22-29); Chloride 98 mmol/L (98-107); Estimated GFR 22; Globulin 3.6 g/dL (2.4-3.5); Glucose 268 mg/dL (70-105); Potassium 4.4 mmol/L (3.5-5.1); Protein, Total 7.8 g/dL (6.0-8.3); Sodium 135 mmol/L (136-145)
[2023-02-24 16:32] LABS: Bacteria/HPF None Seen HPF (None Seen); Bilirubin Negative (Negative); Blood, Urine Trace (Negative); Clarity Clear (Clear); Glucose, Urine (Dipstick) 100 mg/dL (Negative); Ketone, Urine Negative (Negative); Leukocyte Negative Leu/uL (Negative); Nitrite Negative (Negative); Protein, Urine (Dipstick) 100 mg/dL (Neg-Trace); Squamous Epithelial None Seen HPF (0-3); Urobilinogen Normal mg/dL (Less than 2); WBC/HPF 0-3 HPF (0-3)
== END 2023-02-24 17:13 | disposition home or self-care (01) ==
LOC: ERS 14:56
DX: R53.1 Weakness (principal); E11.65 Type 2 diabetes mellitus with hyperglycemia; E11.40 Type 2 diabetes mellitus with diabetic neuropathy, unspecified; K21.9 Gastro-esophageal reflux disease without esophagitis; E78.2 Mixed hyperlipidemia; I12.0 Hypertensive chronic kidney disease with stage 5 chronic kidney disease or end stage renal disease; N18.6 End stage renal disease; E11.22 Type 2 diabetes mellitus with diabetic chronic kidney disease; Z87.891 Personal history of nicotine dependence
CPT/HCPCS: 36415; 36416; 71045; 80053; 81003; 81015; 82010; 82550; 82805; 84484; 85025; 93005

== ENCOUNTER 2023-02-28 23:32 | Emergency (ER) | payer OTHER ==
[2023-03-01] MEDS ORDERED: Proparacaine 0.5% Opth 15 ML BOT ONE (04:04)
[2023-03-01] MEDS ORDERED: Fluorescein Opthalmic Strip ONE (04:04)
== END 2023-03-01 04:19 | disposition home or self-care (01) ==
LOC: ERS 23:32
DX: H10.9 Unspecified conjunctivitis (principal); K21.9 Gastro-esophageal reflux disease without esophagitis; I12.0 Hypertensive chronic kidney disease with stage 5 chronic kidney disease or end stage renal disease; N18.6 End stage renal disease; E11.40 Type 2 diabetes mellitus with diabetic neuropathy, unspecified; J45.909 Unspecified asthma, uncomplicated; G43.909 Migraine, unspecified, not intractable, without status migrainosus; Z99.2 Dependence on renal dialysis; Z87.891 Personal history of nicotine dependence
CPT/HCPCS: 99283

== ENCOUNTER 2023-03-15 17:48 | Emergency (ER) | payer OTHER ==
[2023-03-15 21:16] LABS: #Eosinphils 0.2 thou/uL (0.0-0.7); #Lymphocytes 1.9 thou/uL (1.20-3.40); #Monocytes 0.5 thou/uL (0.11-0.59); #Neutrophils 6.6 thou/uL (1.40-6.50); %Basophils 0.3 % (0.0-1.0); %Eosinophils 2.4 % (0.0-10.0); %Lymphocytes 20.6 % (21.0-51.0); %Monocytes 5.1 % (0.0-10.0); %Neutrophils 71.5 % (42.0-75.0); Hemoglobin 11.8 g/dL (12.0-16.0); Mean Corpuscular HGB CONC 34.5 g/dL (32.0-36.0); Mean Corpuscular Hemoglobin 30.8 pg (27.0-31.0); Mean Corpuscular Volume 89.2 fl (78.0-98.0); Mean Platelet Volume 8.4 fL (7.4-10.4); Platelet Count 167 10x3/uL (130-400); RBC Distribution Width 11.9 % (11.5-14.5); Red Blood Cell (RBC) Count 3.84 mill/uL (4.20-5.40); White Blood Cell (WBC) Count 9.2 10x3/uL (4.8-10.8)
[2023-03-15 21:57] LABS: ALT (SGPT) 17 U/L (8-55); AST (SGOT) 24 U/L (5-34); Albumin 3.9 g/dL (3.5-5.0); Alkaline Phosphatase 149 U/L (40-110); Anion Gap 19 mmol/L (10-20); BUN (Urea Nitrogen) 56 mg/dL (9.8-20.1); Bilirubin, Total Less than 0.2 mg/dL (0.2-1.2); Calc. Creatinine Clearance 0 mL/min (70-130); Calcium 8.4 mg/dL (7.8-10.44); Carbon Dioxide 22 mmol/L (22-29); Chloride 101 mmol/L (98-107); Estimated GFR 13; Globulin 3.4 g/dL (2.4-3.5); Glucose 132 mg/dL (70-105); Potassium 3.8 mmol/L (3.5-5.1); Protein, Total 7.3 g/dL (6.0-8.3); Sodium 138 mmol/L (136-145)
== END 2023-03-15 23:15 | disposition home or self-care (01) ==
LOC: ERS 17:48
DX: I12.0 Hypertensive chronic kidney disease with stage 5 chronic kidney disease or end stage renal disease (principal); N18.6 End stage renal disease; E11.22 Type 2 diabetes mellitus with diabetic chronic kidney disease; E11.40 Type 2 diabetes mellitus with diabetic neuropathy, unspecified; K21.9 Gastro-esophageal reflux disease without esophagitis; E78.2 Mixed hyperlipidemia; Z87.891 Personal history of nicotine dependence
CPT/HCPCS: 71045; 80053; 84484; 85025; 93005; 94760

== ENCOUNTER 2023-06-25 11:50 | Emergency (ER) | payer OTHER ==
[2023-06-25] MEDS ORDERED: Dexamethasone 10 MG/ML VIAL ONE (12:16)
== END 2023-06-25 12:19 | disposition home or self-care (01) ==
LOC: ERS 11:50
DX: J02.9 Acute pharyngitis, unspecified (principal); E11.40 Type 2 diabetes mellitus with diabetic neuropathy, unspecified; K21.9 Gastro-esophageal reflux disease without esophagitis; I10 Essential (primary) hypertension; Z87.891 Personal history of nicotine dependence; Z79.82 Long term (current) use of aspirin; Z79.01 Long term (current) use of anticoagulants; Z79.899 Other long term (current) drug therapy
CPT/HCPCS: 87081; 87430; 99283; J1100

== ENCOUNTER 2023-06-27 20:45 | Emergency (ER) | payer OTHER ==
[2023-06-27] MEDS ORDERED: Clindamycin 150 MG CAP ONE (22:20)
== END 2023-06-27 23:14 | disposition home or self-care (01) ==
LOC: ERS 20:45
DX: J02.9 Acute pharyngitis, unspecified (principal); E78.2 Mixed hyperlipidemia; I12.0 Hypertensive chronic kidney disease with stage 5 chronic kidney disease or end stage renal disease; N18.6 End stage renal disease; E11.22 Type 2 diabetes mellitus with diabetic chronic kidney disease; Z87.891 Personal history of nicotine dependence; Z79.899 Other long term (current) drug therapy; Z79.82 Long term (current) use of aspirin
CPT/HCPCS: 99283

== ENCOUNTER 2023-07-12 09:08 | Emergency (ER) | payer OTHER ==
[2023-07-12] MEDS ORDERED: Cyclobenzaprine 10 MG TAB ONE (09:53)
== END 2023-07-12 11:06 | disposition home or self-care (01) ==
LOC: ERS 09:08
DX: M54.50 Low back pain, unspecified (principal); M25.551 Pain in right hip; K21.9 Gastro-esophageal reflux disease without esophagitis; E78.2 Mixed hyperlipidemia; I12.0 Hypertensive chronic kidney disease with stage 5 chronic kidney disease or end stage renal disease; N18.6 End stage renal disease; E11.22 Type 2 diabetes mellitus with diabetic chronic kidney disease; Z87.891 Personal history of nicotine dependence; Z99.2 Dependence on renal dialysis; Z79.899 Other long term (current) drug therapy; Z79.01 Long term (current) use of anticoagulants; Z79.82 Long term (current) use of aspirin
CPT/HCPCS: 72100

== ENCOUNTER 2023-07-16 00:08 | Emergency (ER) | payer OTHER ==
[2023-07-16 01:20] LABS: Bilirubin Negative (Negative); Blood, Urine 1+ (Negative); CAUTI Indications for Culture Alt mental st,lethar; Clarity Turbid (Clear); Glucose, Urine (Dipstick) 100 mg/dL (Negative); Ketone, Urine Negative (Negative); Leukocyte 500 Leu/uL (Negative); Nitrite Negative (Negative); Protein, Urine (Dipstick) 300 mg/dL (Neg-Trace); Urobilinogen Normal mg/dL (Less than 2); WBC/HPF Greater than 50 HPF (0-3)
[2023-07-16 01:22] LABS: Bacteria/HPF 1+ HPF (None Seen); Squamous Epithelial 0-3 HPF (0-3)
[2023-07-16 01:23] LABS: Amphetamine Not Detected (NotDetected); Barbiturates Screen Not Detected (NotDetected); Benzodiazepine Screen Not Detected (NotDetected); Cocaine Metabolite Screen Not Detected (NotDetected); Methadone Not Detected (NotDetected); Methamphetamine Not Detected (NotDetected); Opiate Screen Not Detected (NotDetected); Oxycodone Screen Not Detected (NotDetected); Phencyclidine (PCP) Not Detected (NotDetected); THC/Cannabinoid Screen Not Detected (NotDetected); Tricyclic Screen Not Detected (NotDetected)
[2023-07-16 01:27] LABS: #Eosinphils 0.2 thou/uL (0.0-0.7); #Monocytes 0.5 thou/uL (0.11-0.59); #Neutrophils 3.6 thou/uL (1.40-6.50); %Basophils 0.5 % (0.0-1.0); %Eosinophils 3.3 % (0.0-10.0); %Lymphocytes 32.9 % (21.0-51.0); %Monocytes 7.2 % (0.0-10.0); %Neutrophils 55.9 % (42.0-75.0); Hematocrit 29.4 % (36.0-47.0); Hemoglobin 9.9 g/dL (12.0-16.0); Mean Corpuscular HGB CONC 33.7 g/dL (32.0-36.0); Mean Corpuscular Hemoglobin 30.7 pg (27.0-31.0); Mean Platelet Volume 10.3 fL (7.4-10.4); Platelet Count 163 10x3/uL (130-400); RBC Distribution Width 12.7 % (11.5-14.5); Red Blood Cell (RBC) Count 3.23 mill/uL (4.20-5.40); White Blood Cell (WBC) Count 6.4 10x3/uL (4.8-10.8)
[2023-07-16 01:50] LABS: ALT (SGPT) 18 U/L (8-55); AST (SGOT) 21 U/L (5-34); Albumin 3.6 g/dL (3.5-5.0); Alkaline Phosphatase 127 U/L (40-110); Anion Gap 13 mmol/L (10-20); BUN (Urea Nitrogen) 24 mg/dL (9.8-20.1); Bilirubin, Total 0.3 mg/dL (0.2-1.2); Calc. Creatinine Clearance 0 mL/min (70-130); Calcium 8.1 mg/dL (7.8-10.44); Carbon Dioxide 27 mmol/L (22-29); Chloride 104 mmol/L (98-107); Estimated GFR 15; Globulin 2.7 g/dL (2.4-3.5); Glucose 170 mg/dL (70-105); Potassium 4.1 mmol/L (3.5-5.1); Protein, Total 6.3 g/dL (6.0-8.3); Sodium 140 mmol/L (136-145)
[2023-07-16 01:51] LABS: Acetaminophen 14 mcg/mL (10.0-30.0); Alcohol Less than 10.0 mg/dL (Less than 10); Salicylate Less than 8.0 mg/dL (15.0-30.0)
[2023-07-16 02:05] LABS: Urine Culture Reflex Yes Yes
[2023-07-16] MEDS ORDERED: Ciprofloxacin 500 MG TAB ONE (02:36)
== END 2023-07-16 05:13 | disposition home or self-care (01) ==
LOC: ERS 00:08
DX: F43.20 Adjustment disorder, unspecified (principal); E11.22 Type 2 diabetes mellitus with diabetic chronic kidney disease; N18.6 End stage renal disease; I12.0 Hypertensive chronic kidney disease with stage 5 chronic kidney disease or end stage renal disease; K21.9 Gastro-esophageal reflux disease without esophagitis; E78.2 Mixed hyperlipidemia; Z79.82 Long term (current) use of aspirin; Z79.899 Other long term (current) drug therapy
CPT/HCPCS: 36415; 80053; 80306; 80307; 81001; 85025; 87086; 93005

== ENCOUNTER 2023-08-06 18:37 | Inpatient (IN) | payer OTHER ==
[~2023-08-06 18:37] MED LIST changes: +Heparin 10,000 UNITS/ 10 ML VIAL ONE; -Sodium Chloride 0.9% 15 ML NEB ONE
[2023-08-06 19:08] LABS: #Eosinphils 0.1 thou/uL (0.0-0.7); #Monocytes 0.5 thou/uL (0.11-0.59); #Neutrophils 5.3 thou/uL (1.40-6.50); %Basophils 0.4 % (0.0-1.0); %Eosinophils 1.9 % (0.0-10.0); %Lymphocytes 18.5 % (21.0-51.0); %Monocytes 6.5 % (0.0-10.0); %Neutrophils 72.6 % (42.0-75.0); Hematocrit 30.1 % (36.0-47.0); Hemoglobin 10.3 g/dL (12.0-16.0); Mean Corpuscular HGB CONC 34.2 g/dL (32.0-36.0); Mean Corpuscular Hemoglobin 31.1 pg (27.0-31.0); Mean Corpuscular Volume 90.9 fl (78.0-98.0); Mean Platelet Volume 10.5 fL (7.4-10.4); Platelet Count 152 10x3/uL (130-400); RBC Distribution Width 12.4 % (11.5-14.5); Red Blood Cell (RBC) Count 3.31 mill/uL (4.20-5.40); White Blood Cell (WBC) Count 7.2 10x3/uL (4.8-10.8)
[2023-08-06 19:31] LABS: ALT (SGPT) 16 U/L (8-55); AST (SGOT) 17 U/L (5-34); Albumin 3.6 g/dL (3.5-5.0); Alkaline Phosphatase 108 U/L (40-110); Anion Gap 12 mmol/L (10-20); BUN (Urea Nitrogen) 37 mg/dL (9.8-20.1); Bilirubin, Total 0.3 mg/dL (0.2-1.2); Calc. Creatinine Clearance 0 mL/min (70-130); Calcium 8.7 mg/dL (7.8-10.44); Carbon Dioxide 23 mmol/L (22-29); Chloride 109 mmol/L (98-107); Estimated GFR 19; Globulin 2.7 g/dL (2.4-3.5); Glucose 120 mg/dL (70-105); Potassium 5.1 mmol/L (3.5-5.1); Protein, Total 6.3 g/dL (6.0-8.3); Sodium 139 mmol/L (136-145)
[2023-08-06 19:35] LABS: Troponin I 0.025 ng/mL (< 0.028)
[2023-08-06 19:56] LABS: SARS-CoV-2 NAA Rapid Test Not Detected (NotDetected)
[2023-08-06 23:02] LABS: HBSAB Concentration Less than 8.00 mIU/mL; HBSAg Index 0.24 S/CO (0-0.99); Hep B Core Total Ab Non-Reactive (NonReactive); Hep B Core Total Index 0.07 S/CO (0-0.79); Hep B Surf AB Non-Reactive (NonReactive); Hep B Surf Ag Non-Reactive S/CO (NonReactive); Hep C IgG Ab Non-Reactive S/CO (NonReactive); Hep C Index 0.06 S/CO (0-0.79)
[2023-08-07] MEDS ORDERED: dilTIAZem 25 MG/5 ML VIAL ONE (03:17)
[2023-08-07] MEDS ORDERED: Ondansetron ODT 4 MG TAB PO PRN (03:47)
[2023-08-07] MEDS ORDERED: Senokot S 8.6-50 MG TAB PO PRN (03:47)
[2023-08-07] MEDS ORDERED: Acetaminophen 325 MG TAB PO PRN (03:47)
[2023-08-07 04:05] LABS: Anion Gap 14 mmol/L (10-20); BUN (Urea Nitrogen) 11 mg/dL (9.8-20.1); Calc. Creatinine Clearance 0 mL/min (70-130); Calcium 9.4 mg/dL (7.8-10.44); Carbon Dioxide 26 mmol/L (22-29); Chloride 100 mmol/L (98-107); Estimated GFR 39; Glucose 168 mg/dL (70-105); Potassium 3.4 mmol/L (3.5-5.1); Sodium 137 mmol/L (136-145)
[2023-08-07 04:09] LABS: Troponin I 0.018 ng/mL (< 0.028)
[2023-08-07 04:34] LABS: Hemoglobin A1c 6.8 % (4.0-6.0)
[2023-08-07] MEDS: Mometasone 200 MCG/Formoterol 5 MCG 120 PUFF INHALER INH SCH (06:48)
[2023-08-07 07:12] LABS: Troponin I 0.025 ng/mL (< 0.028)
[2023-08-07] MEDS: Famotidine 20 MG TAB PO SCH (08:38)
[2023-08-07] MEDS: Ezetimibe 10 MG TAB PO SCH (08:38)
[2023-08-07] MEDS: glipiZIDE 5 MG TAB PO SCH (08:38)
[2023-08-07] MEDS: Alogliptin 6.25 MG TAB PO SCH (08:38)
[2023-08-07] MEDS: Amlodipine 10 MG TAB PO SCH (08:38)
[2023-08-07] MEDS: Carvedilol 3.125 MG TAB PO SCH ×2 (08:39→17:29)
[2023-08-07] MEDS: Losartan 25 MG TAB PO SCH (08:39)
[2023-08-07] MEDS: Icosapent Ethyl 1 GM CAPSULE PO SCH ×2 (08:39→21:14)
[2023-08-07] MEDS ORDERED: Cyclobenzaprine 10 MG TAB PO PRN (11:15)
[2023-08-07] MEDS ORDERED: Heparin 5,000 UNITS/ML VIAL SC SCH (15:00)
[2023-08-07] MEDS: cloNIDine 0.1 MG TAB PO SCH ×2 (16:03→21:14)
[2023-08-07] MEDS ORDERED: Non-Formulary Item 1 EACH (Cholecalciferol (Vitamin D3) [Vitamin D3] 1000 UNIT Capsule) PO SCH (21:00)
[2023-08-07] MEDS: Sertraline 100 MG TAB PO SCH (21:14)
[2023-08-07] MEDS: rOPINIRole HCl 2 MG TAB PO SCH (21:14)
[2023-08-07] MEDS: Apixaban 5 MG TAB PO SCH (21:14)
[2023-08-07] MEDS: Rosuvastatin 20 MG TAB PO SCH (21:14)
[2023-08-07] MEDS: Loratadine 10 MG TAB PO SCH (21:14)
[2023-08-07] MEDS: Mirtazapine 30 MG Soltab PO SCH (21:15)
[2023-08-08 04:48] LABS: #Eosinphils 0.2 thou/uL (0.0-0.7); #Monocytes 0.6 thou/uL (0.11-0.59); %Basophils 0.5 % (0.0-1.0); %Eosinophils 2.8 % (0.0-10.0); %Lymphocytes 27.8 % (21.0-51.0); %Monocytes 7.6 % (0.0-10.0); %Neutrophils 61.1 % (42.0-75.0); Hematocrit 31.9 % (36.0-47.0); Hemoglobin 10.6 g/dL (12.0-16.0); Mean Corpuscular HGB CONC 33.2 g/dL (32.0-36.0); Mean Corpuscular Hemoglobin 30.7 pg (27.0-31.0); Mean Corpuscular Volume 92.5 fl (78.0-98.0); Mean Platelet Volume 10.6 fL (7.4-10.4); Platelet Count 157 10x3/uL (130-400); RBC Distribution Width 12.3 % (11.5-14.5); Red Blood Cell (RBC) Count 3.45 mill/uL (4.20-5.40); White Blood Cell (WBC) Count 8.3 10x3/uL (4.8-10.8)
[2023-08-08 05:20] LABS: Anion Gap 15 mmol/L (10-20); BUN (Urea Nitrogen) 36 mg/dL (9.8-20.1); Calc. Creatinine Clearance 22 mL/min (70-130); Calcium 8.6 mg/dL (7.8-10.44); Carbon Dioxide 23 mmol/L (22-29); Chloride 102 mmol/L (98-107); Estimated GFR 13; Glucose 149 mg/dL (70-105); Potassium 3.9 mmol/L (3.5-5.1); Sodium 136 mmol/L (136-145)
[2023-08-08] MEDS: Mometasone 200 MCG/Formoterol 5 MCG 120 PUFF INHALER INH SCH ×3 (07:22→18:10)
[2023-08-08] MEDS: Alogliptin 6.25 MG TAB PO SCH (08:53)
[2023-08-08] MEDS: Ezetimibe 10 MG TAB PO SCH (08:54)
[2023-08-08] MEDS: Clopidogrel Bisulfate 75 MG TAB PO SCH (08:54)
[2023-08-08] MEDS: Amlodipine 10 MG TAB PO SCH (08:54)
[2023-08-08] MEDS: Losartan 25 MG TAB PO SCH (08:55)
[2023-08-08] MEDS: glipiZIDE 5 MG TAB PO SCH (08:55)
[2023-08-08] MEDS: cloNIDine 0.1 MG TAB PO SCH ×3 (08:55→20:39)
[2023-08-08] MEDS: Apixaban 5 MG TAB PO SCH ×2 (08:56→20:38)
[2023-08-08] MEDS: Famotidine 20 MG TAB PO SCH (08:56)
[2023-08-08] MEDS: Carvedilol 3.125 MG TAB PO SCH (08:56)
[2023-08-08] MEDS: Icosapent Ethyl 1 GM CAPSULE PO SCH ×2 (08:56→20:39)
[2023-08-08] MEDS ORDERED: Aspirin 81 mg Enteric Coated Tablet PO SCH (09:00)
[2023-08-08 10:48] VITALS: BMI 38.0
[2023-08-08] MEDS: Carvedilol 6.25 MG TAB PO SCH (16:14)
[2023-08-08] MEDS: Loratadine 10 MG TAB PO SCH (20:39)
[2023-08-08] MEDS: Mirtazapine 30 MG Soltab PO SCH (20:39)
[2023-08-08] MEDS: Rosuvastatin 20 MG TAB PO SCH (20:40)
[2023-08-08] MEDS: Sertraline 100 MG TAB PO SCH (20:40)
[2023-08-08] MEDS: rOPINIRole HCl 2 MG TAB PO SCH (20:40)
[2023-08-09 05:31] LABS: #Eosinphils 0.3 thou/uL (0.0-0.7); #Monocytes 0.6 thou/uL (0.11-0.59); #Neutrophils 5.6 thou/uL (1.40-6.50); %Basophils 0.2 % (0.0-1.0); %Eosinophils 3.1 % (0.0-10.0); %Lymphocytes 23.8 % (21.0-51.0); %Monocytes 7.2 % (0.0-10.0); %Neutrophils 65.3 % (42.0-75.0); Hematocrit 30.2 % (36.0-47.0); Hemoglobin 10.5 g/dL (12.0-16.0); Mean Corpuscular HGB CONC 34.8 g/dL (32.0-36.0); Mean Corpuscular Volume 89.1 fl (78.0-98.0); Mean Platelet Volume 10.8 fL (7.4-10.4); Platelet Count 170 10x3/uL (130-400); Red Blood Cell (RBC) Count 3.39 mill/uL (4.20-5.40); White Blood Cell (WBC) Count 8.5 10x3/uL (4.8-10.8)
[2023-08-09 06:05] LABS: Anion Gap 14 mmol/L (10-20); BUN (Urea Nitrogen) 51 mg/dL (9.8-20.1); Calc. Creatinine Clearance 18 mL/min (70-130); Calcium 8.4 mg/dL (7.8-10.44); Carbon Dioxide 24 mmol/L (22-29); Chloride 100 mmol/L (98-107); Estimated GFR 9; Glucose 180 mg/dL (70-105); Potassium 4.1 mmol/L (3.5-5.1); Sodium 134 mmol/L (136-145)
[2023-08-09] MEDS: Mometasone 200 MCG/Formoterol 5 MCG 120 PUFF INHALER INH SCH ×2 (07:36→19:45)
[2023-08-09] MEDS ORDERED: Heparin 10,000 UNITS/ 10 ML VIAL ONE (09:18)
[2023-08-09] MEDS: Carvedilol 6.25 MG TAB PO SCH ×2 (11:28→18:21)
[2023-08-09] MEDS: Alogliptin 6.25 MG TAB PO SCH (11:28)
[2023-08-09] MEDS: glipiZIDE 5 MG TAB PO SCH (11:29)
[2023-08-09] MEDS: Famotidine 20 MG TAB PO SCH (11:29)
[2023-08-09] MEDS: cloNIDine 0.1 MG TAB PO SCH ×2 (11:29→18:13)
[2023-08-09] MEDS: Ezetimibe 10 MG TAB PO SCH (11:29)
[2023-08-09] MEDS: Clopidogrel Bisulfate 75 MG TAB PO SCH (11:29)
[2023-08-09] MEDS: Losartan 25 MG TAB PO SCH (11:29)
[2023-08-09] MEDS: Icosapent Ethyl 1 GM CAPSULE PO SCH ×2 (11:29→22:44)
[2023-08-09] MEDS: Apixaban 5 MG TAB PO SCH ×2 (11:29→22:44)
[2023-08-09] MEDS: Amlodipine 10 MG TAB PO SCH (11:29)
[2023-08-09] MEDS: Mirtazapine 30 MG Soltab PO SCH (22:43)
[2023-08-09] MEDS: Rosuvastatin 20 MG TAB PO SCH (22:43)
[2023-08-09] MEDS: rOPINIRole HCl 2 MG TAB PO SCH (22:43)
[2023-08-09] MEDS: Sertraline 100 MG TAB PO SCH (22:44)
[2023-08-09] MEDS: Loratadine 10 MG TAB PO SCH (22:44)
[2023-08-10] MEDS: cloNIDine 0.1 MG TAB PO SCH ×2 (00:28→09:18)
[2023-08-10 05:05] LABS: #Eosinphils 0.3 thou/uL (0.0-0.7); #Monocytes 0.6 thou/uL (0.11-0.59); #Neutrophils 6.5 thou/uL (1.40-6.50); %Basophils 0.3 % (0.0-1.0); %Eosinophils 2.8 % (0.0-10.0); %Monocytes 6.6 % (0.0-10.0); Hematocrit 32.1 % (36.0-47.0); Hemoglobin 10.7 g/dL (12.0-16.0); Mean Corpuscular HGB CONC 33.3 g/dL (32.0-36.0); Mean Corpuscular Hemoglobin 30.6 pg (27.0-31.0); Mean Corpuscular Volume 91.7 fl (78.0-98.0); Mean Platelet Volume 10.6 fL (7.4-10.4); Platelet Count 193 10x3/uL (130-400); RBC Distribution Width 12.4 % (11.5-14.5); White Blood Cell (WBC) Count 9.8 10x3/uL (4.8-10.8)
[2023-08-10 05:39] LABS: Anion Gap 15 mmol/L (10-20); BUN (Urea Nitrogen) 33 mg/dL (9.8-20.1); Calc. Creatinine Clearance 21 mL/min (70-130); Calcium 8.5 mg/dL (7.8-10.44); Carbon Dioxide 25 mmol/L (22-29); Chloride 92 mmol/L (98-107); Estimated GFR 12; Glucose 157 mg/dL (70-105); Potassium 4.3 mmol/L (3.5-5.1); Sodium 128 mmol/L (136-145)
[2023-08-10] MEDS: Mometasone 200 MCG/Formoterol 5 MCG 120 PUFF INHALER INH SCH (07:38)
[2023-08-10 08:26] VITALS: BP 118/62; TEMP 98.2
[2023-08-10] MEDS: Alogliptin 6.25 MG TAB PO SCH (09:16)
[2023-08-10] MEDS: Apixaban 5 MG TAB PO SCH (09:17)
[2023-08-10] MEDS: Carvedilol 6.25 MG TAB PO SCH (09:17)
[2023-08-10] MEDS: Famotidine 20 MG TAB PO SCH (09:17)
[2023-08-10] MEDS: Losartan 25 MG TAB PO SCH (09:17)
[2023-08-10] MEDS: Icosapent Ethyl 1 GM CAPSULE PO SCH (09:17)
[2023-08-10] MEDS: Clopidogrel Bisulfate 75 MG TAB PO SCH (09:17)
[2023-08-10] MEDS: Ezetimibe 10 MG TAB PO SCH (09:17)
[2023-08-10] MEDS: glipiZIDE 5 MG TAB PO SCH (09:17)
[2023-08-10] MEDS: Amlodipine 10 MG TAB PO SCH (09:18)
[2023-08-14] MEDS ORDERED: Ergocalciferol 1.25 MG(50,000 UNITS) CAP PO SCH (09:00)
== END 2023-08-10 11:44 | disposition home or self-care (01) | DRG 291 ==
LOC: ERS 18:37 → 2SW 08-07 03:48 → OBSVTOIN 08-09 10:28
PROVIDERS: ADMIT Student in an Organized Health Care Education/Training Program; ATTEND Internal Medicine
DX: I13.2 Hypertensive heart and chronic kidney disease with heart failure and with stage 5 chronic kidney disease, or end stage renal disease (principal); I50.33 Acute on chronic diastolic (congestive) heart failure; N18.6 End stage renal disease; E87.1 Hypo-osmolality and hyponatremia; I48.0 Paroxysmal atrial fibrillation; Z99.2 Dependence on renal dialysis; I25.10 Atherosclerotic heart disease of native coronary artery without angina pectoris; E11.22 Type 2 diabetes mellitus with diabetic chronic kidney disease; J45.909 Unspecified asthma, uncomplicated; Z20.822 Contact with and (suspected) exposure to COVID-19; Z90.49 Acquired absence of other specified parts of digestive tract; Z90.710 Acquired absence of both cervix and uterus; Z90.89 Acquired absence of other organs; Z82.49 Family history of ischemic heart disease and other diseases of the circulatory system; K21.9 Gastro-esophageal reflux disease without esophagitis; Z88.0 Allergy status to penicillin; Z88.8 Allergy status to other drugs, medicaments and biological substances; Z88.2 Allergy status to sulfonamides; Z88.5 Allergy status to narcotic agent; Z88.1 Allergy status to other antibiotic agents; G47.33 Obstructive sleep apnea (adult) (pediatric); D63.1 Anemia in chronic kidney disease; Z98.51 Tubal ligation status; E87.5 Hyperkalemia; F31.9 Bipolar disorder, unspecified
CPT/HCPCS: 36415; 71045; 80048; 80053; 83036; 83880; 84484; 85025; 86704; 90935; 93005; 96374; G0257; G0378; J1644; U0002

== ENCOUNTER 2023-08-11 15:50 | Inpatient (IN) | payer OTHER ==
[2023-08-11 17:40] LABS: #Eosinphils 0.1 thou/uL (0.0-0.7); #Monocytes 0.6 thou/uL (0.11-0.59); #Neutrophils 7.8 thou/uL (1.40-6.50); %Basophils 0.3 % (0.0-1.0); %Lymphocytes 16.7 % (21.0-51.0); %Monocytes 6.2 % (0.0-10.0); %Neutrophils 75.5 % (42.0-75.0); Hematocrit 33.1 % (36.0-47.0); Hemoglobin 11.6 g/dL (12.0-16.0); Mean Corpuscular Volume 88.5 fl (78.0-98.0); Mean Platelet Volume 10.7 fL (7.4-10.4); Platelet Count 214 10x3/uL (130-400); RBC Distribution Width 12.4 % (11.5-14.5); Red Blood Cell (RBC) Count 3.74 mill/uL (4.20-5.40); White Blood Cell (WBC) Count 10.3 10x3/uL (4.8-10.8)
[2023-08-11 17:59] LABS: INR-International Normal Ratio 1.3; PTT 39.3 sec (22.9-36.1); Prothrombin Time 16.5 sec (12.0-14.7)
[2023-08-11 18:13] LABS: ALT (SGPT) 22 U/L (8-55); AST (SGOT) 18 U/L (5-34); Albumin 4.1 g/dL (3.5-5.0); Alkaline Phosphatase 127 U/L (40-110); Anion Gap 12 mmol/L (10-20); BUN (Urea Nitrogen) 22 mg/dL (9.8-20.1); Bilirubin, Total 0.2 mg/dL (0.2-1.2); Calc. Creatinine Clearance 0 mL/min (70-130); Carbon Dioxide 29 mmol/L (22-29); Chloride 99 mmol/L (98-107); Estimated GFR 14; Globulin 3.1 g/dL (2.4-3.5); Glucose 132 mg/dL (70-105); Potassium 4.1 mmol/L (3.5-5.1); Protein, Total 7.2 g/dL (6.0-8.3); Sodium 136 mmol/L (136-145)
[2023-08-11 18:18] LABS: Troponin I Less than 0.010 ng/mL (< 0.028)
[2023-08-11] MEDS ORDERED: Dextrose 5% in Water 1,000 ML IV PRN (19:36)
[2023-08-11] MEDS ORDERED: HumaLOG 300 UNITS/3 ML VIAL SC PRN (19:36)
[2023-08-11] MEDS ORDERED: Dextrose 50% Abboject 50 ML SYRINGE SLOW IVP PRN (19:36)
[2023-08-11] MEDS ORDERED: Glucagon 1 MG/ML KIT IM PRN (19:36)
[2023-08-11 20:58] VITALS: BMI 37.8
[2023-08-11] MEDS: Mirtazapine 30 MG Soltab PO SCH (21:35)
[2023-08-11] MEDS: cloNIDine 0.1 MG TAB PO SCH (21:36)
[2023-08-11] MEDS: hydrOXYzine 25 MG TAB PO SCH (21:36)
[2023-08-11] MEDS: Loratadine 10 MG TAB PO SCH (21:36)
[2023-08-11] MEDS: Pantoprazole 40 MG VIAL IVP SCH (21:37)
[2023-08-11] MEDS: Cholecalciferol 1,000 UNITS (25 MCG) TAB PO SCH (21:39)
[2023-08-11 22:12] LABS: Hematocrit 32.8 % (36.0-47.0); Hemoglobin 11.3 g/dL (12.0-16.0)
[2023-08-12] MEDS ORDERED: rOPINIRole HCl 2 MG TAB PO SCH (01:45)
[2023-08-12 06:41] LABS: #Eosinphils 0.1 thou/uL (0.0-0.7); #Monocytes 0.7 thou/uL (0.11-0.59); #Neutrophils 6.7 thou/uL (1.40-6.50); %Basophils 0.3 % (0.0-1.0); %Eosinophils 1.5 % (0.0-10.0); %Lymphocytes 18.6 % (21.0-51.0); %Monocytes 7.2 % (0.0-10.0); Hematocrit 34.1 % (36.0-47.0); Hemoglobin 11.5 g/dL (12.0-16.0); Mean Corpuscular HGB CONC 33.7 g/dL (32.0-36.0); Mean Corpuscular Hemoglobin 30.7 pg (27.0-31.0); Mean Corpuscular Volume 90.9 fl (78.0-98.0); Platelet Count 207 10x3/uL (130-400); RBC Distribution Width 12.7 % (11.5-14.5); Red Blood Cell (RBC) Count 3.75 mill/uL (4.20-5.40); White Blood Cell (WBC) Count 9.3 10x3/uL (4.8-10.8)
[2023-08-12] MEDS: Mometasone 100 MCG/Formoterol 5 MCG 120 PUFF INHALER INH SCH ×2 (06:43→19:51)
[2023-08-12 07:16] LABS: ALT (SGPT) 18 U/L (8-55); AST (SGOT) 19 U/L (5-34); Albumin 3.9 g/dL (3.5-5.0); Alkaline Phosphatase 126 U/L (40-110); Anion Gap 12 mmol/L (10-20); BUN (Urea Nitrogen) 28 mg/dL (9.8-20.1); Bilirubin, Total 0.4 mg/dL (0.2-1.2); Calc. Creatinine Clearance 21 mL/min (70-130); Calcium 9.3 mg/dL (7.8-10.44); Carbon Dioxide 28 mmol/L (22-29); Chloride 102 mmol/L (98-107); Estimated GFR 12; Globulin 3.2 g/dL (2.4-3.5); Glucose 153 mg/dL (70-105); Potassium 4.1 mmol/L (3.5-5.1); Protein, Total 7.1 g/dL (6.0-8.3); Sodium 138 mmol/L (136-145)
[2023-08-12] MEDS ORDERED: Allopurinol 100 MG TAB PO SCH (09:00)
[2023-08-12] MEDS ORDERED: Non-Formulary Item 1 EACH (Esomeprazole Magnesium [Nexium Oral Suspension] 40 MG Suspdr.P PO SCH (09:00)
[2023-08-12] MEDS: Amlodipine 10 MG TAB PO SCH (09:24)
[2023-08-12] MEDS: Losartan 25 MG TAB PO SCH (09:24)
[2023-08-12] MEDS: cloNIDine 0.1 MG TAB PO SCH ×3 (09:24→21:24)
[2023-08-12] MEDS: Ezetimibe 10 MG TAB PO SCH (09:24)
[2023-08-12] MEDS: Carvedilol 6.25 MG TAB PO SCH ×2 (09:24→16:22)
[2023-08-12] MEDS: Pantoprazole 40 MG VIAL IVP SCH ×2 (09:25→21:25)
[2023-08-12] MEDS: hydrOXYzine 25 MG TAB PO SCH ×2 (09:30→21:25)
[2023-08-12] MEDS: traMADol HCl 50 MG TAB PO PRN (12:48)
[2023-08-12] MEDS: Loratadine 10 MG TAB PO SCH (21:25)
[2023-08-12] MEDS: Cholecalciferol 1,000 UNITS (25 MCG) TAB PO SCH (21:25)
[2023-08-12] MEDS: Mirtazapine 30 MG Soltab PO SCH (21:26)
[2023-08-12] MEDS ORDERED: Sertraline 100 MG TAB PO SCH (22:00)
[2023-08-13 01:41] LABS: Campy jejuni + coli by PCR Negative (Negative); STEC Shiga Toxin 1+2 Negative (Negative); Salmonella spp. by PCR Negative (Negative); Shigella spp + EIEC by PCR Negative (Negative)
[2023-08-13 08:26] LABS: #Eosinphils 0.2 thou/uL (0.0-0.7); #Monocytes 0.7 thou/uL (0.11-0.59); #Neutrophils 5.1 thou/uL (1.40-6.50); %Basophils 0.2 % (0.0-1.0); %Eosinophils 2.8 % (0.0-10.0); %Lymphocytes 27.1 % (21.0-51.0); %Monocytes 7.9 % (0.0-10.0); %Neutrophils 61.6 % (42.0-75.0); Hematocrit 30.7 % (36.0-47.0); Hemoglobin 10.2 g/dL (12.0-16.0); Mean Corpuscular HGB CONC 33.2 g/dL (32.0-36.0); Mean Corpuscular Hemoglobin 30.4 pg (27.0-31.0); Mean Corpuscular Volume 91.4 fl (78.0-98.0); Mean Platelet Volume 10.8 fL (7.4-10.4); Platelet Count 180 10x3/uL (130-400); RBC Distribution Width 12.3 % (11.5-14.5); Red Blood Cell (RBC) Count 3.36 mill/uL (4.20-5.40); White Blood Cell (WBC) Count 8.3 10x3/uL (4.8-10.8)
[2023-08-13] MEDS: Mometasone 100 MCG/Formoterol 5 MCG 120 PUFF INHALER INH SCH ×2 (08:28→18:53)
[2023-08-13 08:48] LABS: Anion Gap 12 mmol/L (10-20); BUN (Urea Nitrogen) 37 mg/dL (9.8-20.1); Calc. Creatinine Clearance 19 mL/min (70-130); Calcium 8.9 mg/dL (7.8-10.44); Carbon Dioxide 27 mmol/L (22-29); Chloride 98 mmol/L (98-107); Estimated GFR 11; Glucose 137 mg/dL (70-105); Sodium 133 mmol/L (136-145)
[2023-08-13] MEDS: Pantoprazole 40 MG VIAL IVP SCH ×2 (09:02→19:59)
[2023-08-13] MEDS: Carvedilol 6.25 MG TAB PO SCH ×2 (09:02→16:12)
[2023-08-13] MEDS: cloNIDine 0.1 MG TAB PO SCH ×3 (09:02→19:59)
[2023-08-13] MEDS: Amlodipine 10 MG TAB PO SCH (09:02)
[2023-08-13] MEDS: Losartan 25 MG TAB PO SCH (09:02)
[2023-08-13] MEDS: Ezetimibe 10 MG TAB PO SCH (09:02)
[2023-08-13] MEDS: Vancomycin HCl 125 MG Capsule PO SCH ×3 (09:07→19:58)
[2023-08-13] MEDS: traMADol HCl 50 MG TAB PO PRN ×2 (09:07→21:03)
[2023-08-13] MEDS ORDERED: Mag-Al Plus 1200 MG/1200 MG/120 MG/30 ML UDCUP PO PRN (11:30)
[2023-08-13] MEDS ORDERED: rOPINIRole HCl 2 MG TAB PO SCH (11:30)
[2023-08-13] MEDS: HumaLOG 300 UNITS/3 ML VIAL SC PRN (16:44)
[2023-08-13] MEDS: Mirtazapine 30 MG Soltab PO SCH (19:57)
[2023-08-13] MEDS: Sertraline 100 MG TAB PO SCH (19:58)
[2023-08-13] MEDS: Loratadine 10 MG TAB PO SCH (19:58)
[2023-08-13] MEDS: hydrOXYzine 25 MG TAB PO SCH (19:58)
[2023-08-13] MEDS: Cholecalciferol 1,000 UNITS (25 MCG) TAB PO SCH (19:58)
[2023-08-13] MEDS: rOPINIRole HCl 2 MG TAB PO SCH (19:58)
[2023-08-14] MEDS: Vancomycin HCl 125 MG Capsule PO SCH ×4 (02:04→22:15)
[2023-08-14] MEDS ORDERED: Acetaminophen 650 MG Suppository PR PRN (02:58)
[2023-08-14] MEDS ORDERED: Acetaminophen 325 MG TAB PO PRN (02:59)
[2023-08-14] MEDS ORDERED: SUMAtriptan Succinate 25 MG TAB PO PRN (03:51)
[2023-08-14] MEDS ORDERED: SUMAtriptan Succinate 25 MG TAB PO SCH (04:15)
[2023-08-14] MEDS: Amlodipine 10 MG TAB PO SCH (08:51)
[2023-08-14] MEDS: Losartan 25 MG TAB PO SCH (08:51)
[2023-08-14] MEDS: cloNIDine 0.1 MG TAB PO SCH ×3 (08:51→22:51)
[2023-08-14] MEDS: Carvedilol 6.25 MG TAB PO SCH ×2 (08:51→18:07)
[2023-08-14] MEDS: Ezetimibe 10 MG TAB PO SCH (08:52)
[2023-08-14] MEDS: Pantoprazole 40 MG VIAL IVP SCH ×2 (08:54→22:16)
[2023-08-14] MEDS: traMADol HCl 50 MG TAB PO PRN (08:57)
[2023-08-14] MEDS: Mometasone 100 MCG/Formoterol 5 MCG 120 PUFF INHALER INH SCH ×2 (11:10→19:18)
[2023-08-14] MEDS: Cholecalciferol 1,000 UNITS (25 MCG) TAB PO SCH (22:15)
[2023-08-14] MEDS: Sertraline 100 MG TAB PO SCH (22:17)
[2023-08-14] MEDS: Mirtazapine 30 MG Soltab PO SCH (22:18)
[2023-08-14] MEDS: hydrOXYzine 25 MG TAB PO SCH (22:19)
[2023-08-14] MEDS: rOPINIRole HCl 2 MG TAB PO SCH (22:19)
[2023-08-14] MEDS: Loratadine 10 MG TAB PO SCH (22:19)
[2023-08-15] MEDS: Vancomycin HCl 125 MG Capsule PO SCH ×3 (02:00→13:16)
[2023-08-15] MEDS: HumaLOG 300 UNITS/3 ML VIAL SC PRN ×2 (06:18→13:06)
[2023-08-15 07:13] LABS: #Eosinphils 0.4 thou/uL (0.0-0.7); #Monocytes 0.7 thou/uL (0.11-0.59); #Neutrophils 5.7 thou/uL (1.40-6.50); %Basophils 0.4 % (0.0-1.0); %Eosinophils 3.9 % (0.0-10.0); %Lymphocytes 24.3 % (21.0-51.0); %Monocytes 7.8 % (0.0-10.0); %Neutrophils 63.4 % (42.0-75.0); Hemoglobin 11.6 g/dL (12.0-16.0); Mean Corpuscular HGB CONC 35.2 g/dL (32.0-36.0); Mean Corpuscular Volume 88.2 fl (78.0-98.0); Platelet Count 221 10x3/uL (130-400); Red Blood Cell (RBC) Count 3.74 mill/uL (4.20-5.40)
[2023-08-15] MEDS: Mometasone 100 MCG/Formoterol 5 MCG 120 PUFF INHALER INH SCH (07:28)
[2023-08-15 07:36] LABS: Anion Gap 16 mmol/L (10-20); BUN (Urea Nitrogen) 36 mg/dL (9.8-20.1); Calc. Creatinine Clearance 19 mL/min (70-130); Calcium 8.9 mg/dL (7.8-10.44); Carbon Dioxide 25 mmol/L (22-29); Chloride 94 mmol/L (98-107); Estimated GFR 11; Glucose 192 mg/dL (70-105); Potassium 4.4 mmol/L (3.5-5.1); Sodium 131 mmol/L (136-145)
[2023-08-15] MEDS: Pantoprazole 40 MG VIAL IVP SCH (08:36)
[2023-08-15] MEDS: Carvedilol 6.25 MG TAB PO SCH (08:36)
[2023-08-15] MEDS: Losartan 25 MG TAB PO SCH (08:36)
[2023-08-15] MEDS: cloNIDine 0.1 MG TAB PO SCH (08:36)
[2023-08-15] MEDS: Amlodipine 10 MG TAB PO SCH (08:37)
[2023-08-15] MEDS: Ezetimibe 10 MG TAB PO SCH (08:37)
[2023-08-15 13:10] VITALS: BP 147/69; TEMP 99
== END 2023-08-15 13:21 | disposition home or self-care (01) | DRG 371 ==
LOC: ERS 15:50 → T4-A 18:43 → OBSVTOIN 08-12 15:33
PROVIDERS: ADMIT Internal Medicine; ATTEND Internal Medicine
PROC: 5A1D70Z Performance of Urinary Filtration, Intermittent, Less than 6 Hours Per Day (ICD-10-PCS; principal; 2023-08-13)
DX: A04.72 Enterocolitis due to Clostridium difficile, not specified as recurrent (principal); N18.6 End stage renal disease; I12.0 Hypertensive chronic kidney disease with stage 5 chronic kidney disease or end stage renal disease; I25.10 Atherosclerotic heart disease of native coronary artery without angina pectoris; G47.33 Obstructive sleep apnea (adult) (pediatric); E11.22 Type 2 diabetes mellitus with diabetic chronic kidney disease; J45.909 Unspecified asthma, uncomplicated; M79.7 Fibromyalgia; F31.9 Bipolar disorder, unspecified; I48.0 Paroxysmal atrial fibrillation; K21.9 Gastro-esophageal reflux disease without esophagitis; D63.1 Anemia in chronic kidney disease; E78.5 Hyperlipidemia, unspecified; Z98.890 Other specified postprocedural states; Z88.8 Allergy status to other drugs, medicaments and biological substances; Z88.0 Allergy status to penicillin; Z88.5 Allergy status to narcotic agent; Z88.1 Allergy status to other antibiotic agents; Z95.5 Presence of coronary angioplasty implant and graft; Z99.2 Dependence on renal dialysis; Z91.013 Allergy to seafood; Z88.2 Allergy status to sulfonamides; Z79.899 Other long term (current) drug therapy; Z90.49 Acquired absence of other specified parts of digestive tract; Z90.710 Acquired absence of both cervix and uterus; Z90.89 Acquired absence of other organs; Z82.49 Family history of ischemic heart disease and other diseases of the circulatory system; Z98.51 Tubal ligation status
CPT/HCPCS: 36415; 36416; 74176; 80048; 80053; 82274; 83605; 84484; 85025; 85610; 85730; 87324; 87449; 87493; 87505; 90935; 93005; 93010; C9113; G0257; J1815

== ENCOUNTER 2023-11-22 21:09 | Emergency (ER) | payer OTHER ==
[2023-11-22] MEDS ORDERED: Promethazine 25 MG TAB ONE (22:15)
[2023-11-22 23:14] LABS: SARS-CoV-2 NAA Rapid Test Not Detected (NotDetected)
== END 2023-11-22 22:24 | disposition home or self-care (01) ==
LOC: ERS 21:09
DX: J11.1 Influenza due to unidentified influenza virus with other respiratory manifestations (principal); E11.40 Type 2 diabetes mellitus with diabetic neuropathy, unspecified; E11.39 Type 2 diabetes mellitus with other diabetic ophthalmic complication; H42 Glaucoma in diseases classified elsewhere; I12.0 Hypertensive chronic kidney disease with stage 5 chronic kidney disease or end stage renal disease; E11.22 Type 2 diabetes mellitus with diabetic chronic kidney disease; N18.6 End stage renal disease; I48.91 Unspecified atrial fibrillation; K21.9 Gastro-esophageal reflux disease without esophagitis; J45.909 Unspecified asthma, uncomplicated; M06.9 Rheumatoid arthritis, unspecified; E78.2 Mixed hyperlipidemia; I25.2 Old myocardial infarction; Z79.01 Long term (current) use of anticoagulants; Z79.82 Long term (current) use of aspirin; Z79.84 Long term (current) use of oral hypoglycemic drugs; Z99.2 Dependence on renal dialysis; Z95.5 Presence of coronary angioplasty implant and graft; Z87.891 Personal history of nicotine dependence; Z79.899 Other long term (current) drug therapy
CPT/HCPCS: 71045; Q0169

== ENCOUNTER 2023-12-01 22:01 | Emergency (ER) | payer OTHER ==
[2023-12-01 22:55] LABS: #Eosinphils 0.1 thou/uL (0.0-0.7); #Monocytes 0.8 thou/uL (0.11-0.59); #Neutrophils 7.5 thou/uL (1.40-6.50); %Basophils 0.2 % (0.0-1.0); %Eosinophils 1.3 % (0.0-10.0); %Lymphocytes 19.5 % (21.0-51.0); %Monocytes 7.1 % (0.0-10.0); %Neutrophils 71.6 % (42.0-75.0); Hematocrit 34.6 % (36.0-47.0); Hemoglobin 11.6 g/dL (12.0-16.0); Mean Corpuscular HGB CONC 33.5 g/dL (32.0-36.0); Mean Corpuscular Volume 89.4 fl (78.0-98.0); Mean Platelet Volume 10.6 fL (7.4-10.4); Platelet Count 181 10x3/uL (130-400); RBC Distribution Width 12.5 % (11.5-14.5); Red Blood Cell (RBC) Count 3.87 mill/uL (4.20-5.40); White Blood Cell (WBC) Count 10.5 10x3/uL (4.8-10.8)
[2023-12-01 23:13] LABS: Acetaminophen Less than 10 mcg/mL (10.0-30.0); Alcohol Less than 10.0 mg/dL (Less than 10); Salicylate Less than 8.0 mg/dL (15.0-30.0)
[2023-12-01 23:14] LABS: ALT (SGPT) 13 U/L (8-55); AST (SGOT) 14 U/L (5-34); Albumin 3.6 g/dL (3.5-5.0); Alkaline Phosphatase 142 U/L (40-110); Anion Gap 14 mmol/L (10-20); BUN (Urea Nitrogen) 14 mg/dL (9.8-20.1); Bilirubin, Total 0.2 mg/dL (0.2-1.2); Calc. Creatinine Clearance 0 mL/min (70-130); Calcium 8.2 mg/dL (7.8-10.44); Carbon Dioxide 26 mmol/L (22-29); Chloride 103 mmol/L (98-107); Estimated GFR 26; Globulin 2.9 g/dL (2.4-3.5); Glucose 222 mg/dL (70-105); Potassium 3.7 mmol/L (3.5-5.1); Protein, Total 6.5 g/dL (6.0-8.3); Sodium 139 mmol/L (136-145)
[2023-12-02 01:31] LABS: Amphetamine Not Detected (NotDetected); Barbiturates Screen Not Detected (NotDetected); Benzodiazepine Screen Not Detected (NotDetected); Cocaine Metabolite Screen Not Detected (NotDetected); Methadone Not Detected (NotDetected); Methamphetamine Not Detected (NotDetected); Opiate Screen Not Detected (NotDetected); Oxycodone Screen Not Detected (NotDetected); Phencyclidine (PCP) Not Detected (NotDetected); THC/Cannabinoid Screen Not Detected (NotDetected); Tricyclic Screen Not Detected (NotDetected)
== END 2023-12-02 03:50 | disposition home or self-care (01) ==
LOC: ERS 22:01
DX: F32.A Depression, unspecified (principal); E78.5 Hyperlipidemia, unspecified; E11.40 Type 2 diabetes mellitus with diabetic neuropathy, unspecified; I10 Essential (primary) hypertension; K21.9 Gastro-esophageal reflux disease without esophagitis; J45.909 Unspecified asthma, uncomplicated; Z87.891 Personal history of nicotine dependence; Z79.82 Long term (current) use of aspirin; Z79.899 Other long term (current) drug therapy; Z79.84 Long term (current) use of oral hypoglycemic drugs; Z79.01 Long term (current) use of anticoagulants
CPT/HCPCS: 36415; 80053; 80306; 80307; 84443; 85025; 99285

== ENCOUNTER 2024-01-19 20:22 | Emergency (ER) | payer OTHER ==
[2024-01-19] MEDS ORDERED: Ketorolac Tromethamine 30 MG (1 mL) VIAL ONE (22:16)
[2024-01-19] MEDS ORDERED: Acetaminophen 500 MG TAB ONE (22:16)
[2024-01-19] MEDS ORDERED: traMADol HCl 50 MG TAB ONE (22:17)
== END 2024-01-19 22:21 | disposition home or self-care (01) ==
LOC: ERS 20:22
DX: M54.50 Low back pain, unspecified (principal); I12.0 Hypertensive chronic kidney disease with stage 5 chronic kidney disease or end stage renal disease; E11.22 Type 2 diabetes mellitus with diabetic chronic kidney disease; N18.6 End stage renal disease; E11.40 Type 2 diabetes mellitus with diabetic neuropathy, unspecified; E11.39 Type 2 diabetes mellitus with other diabetic ophthalmic complication; H42 Glaucoma in diseases classified elsewhere; E78.1 Pure hyperglyceridemia; K21.9 Gastro-esophageal reflux disease without esophagitis; G47.30 Sleep apnea, unspecified; M79.7 Fibromyalgia; M32.9 Systemic lupus erythematosus, unspecified; I25.2 Old myocardial infarction; J45.909 Unspecified asthma, uncomplicated; Z95.5 Presence of coronary angioplasty implant and graft; Z99.2 Dependence on renal dialysis; Z79.01 Long term (current) use of anticoagulants; Z79.899 Other long term (current) drug therapy; Z79.84 Long term (current) use of oral hypoglycemic drugs; Z87.891 Personal history of nicotine dependence
CPT/HCPCS: 96372; 99283; J1885

== ENCOUNTER 2024-02-04 09:05 | Emergency (ER) | payer OTHER ==
[2024-02-04] MEDS ORDERED: CALCIUM GLUC 1 GM (50 ML) BAG ONE (09:35)
[2024-02-04 09:36] LABS: #Eosinphils 0.2 thou/uL (0.0-0.7); #Monocytes 0.5 thou/uL (0.11-0.59); #Neutrophils 4.1 thou/uL (1.40-6.50); %Basophils 0.5 % (0.0-1.0); %Eosinophils 2.3 % (0.0-10.0); %Lymphocytes 26.4 % (21.0-51.0); %Monocytes 7.7 % (0.0-10.0); %Neutrophils 62.8 % (42.0-75.0); Hematocrit 38.6 % (36.0-47.0); Hemoglobin 12.8 g/dL (12.0-16.0); Mean Corpuscular HGB CONC 33.2 g/dL (32.0-36.0); Mean Corpuscular Volume 93.5 fl (78.0-98.0); Mean Platelet Volume 10.4 fL (7.4-10.4); Platelet Count 161 10x3/uL (130-400); RBC Distribution Width 13.9 % (11.5-14.5); Red Blood Cell (RBC) Count 4.13 mill/uL (4.20-5.40); White Blood Cell (WBC) Count 6.5 10x3/uL (4.8-10.8)
[2024-02-04 10:02] LABS: ALT (SGPT) 13 U/L (8-55); AST (SGOT) 17 U/L (5-34); Albumin 3.4 g/dL (3.5-5.0); Alkaline Phosphatase 125 U/L (40-110); Anion Gap 17 mmol/L (10-20); BUN (Urea Nitrogen) 31 mg/dL (9.8-20.1); Bilirubin, Total 0.3 mg/dL (0.2-1.2); Calc. Creatinine Clearance 0 mL/min (70-130); Calcium 8.2 mg/dL (7.8-10.44); Carbon Dioxide 20 mmol/L (22-29); Chloride 101 mmol/L (98-107); Estimated GFR 12; Globulin 2.9 g/dL (2.4-3.5); Glucose 321 mg/dL (70-105); Lipase 39 U/L (8-78); Magnesium 1.8 mg/dL (1.6-2.6); Potassium 4.1 mmol/L (3.5-5.1); Protein, Total 6.3 g/dL (6.0-8.3); Sodium 134 mmol/L (136-145)
[2024-02-04 10:04] LABS: Troponin I 0.017 ng/mL (< 0.028)
[2024-02-04 11:07] LABS: Troponin I 0.022 ng/mL (< 0.028)
== END 2024-02-04 11:58 | disposition home or self-care (01) ==
LOC: ERS 09:05
DX: I20.9 Angina pectoris, unspecified (principal); E11.40 Type 2 diabetes mellitus with diabetic neuropathy, unspecified; I12.0 Hypertensive chronic kidney disease with stage 5 chronic kidney disease or end stage renal disease; E11.22 Type 2 diabetes mellitus with diabetic chronic kidney disease; N18.6 End stage renal disease; M32.9 Systemic lupus erythematosus, unspecified; K21.9 Gastro-esophageal reflux disease without esophagitis; I48.91 Unspecified atrial fibrillation; G47.33 Obstructive sleep apnea (adult) (pediatric); M79.7 Fibromyalgia; M06.9 Rheumatoid arthritis, unspecified; L40.50 Arthropathic psoriasis, unspecified; G43.909 Migraine, unspecified, not intractable, without status migrainosus; G25.81 Restless legs syndrome; Z99.11 Dependence on respirator [ventilator] status; Z99.2 Dependence on renal dialysis; Z87.891 Personal history of nicotine dependence
CPT/HCPCS: 36415; 71045; 80053; 83690; 83735; 83880; 84484; 85025; 93005; 96374; J0613

== ENCOUNTER 2024-05-30 10:28 | Outpatient (CLI) | payer OTHER | END 2024-05-30 10:29 | disposition home or self-care (01) | LOC: RAD 10:28 | PROVIDERS: ATTEND Internal Medicine Critical Care Medicine | DX: R06.00 Dyspnea, unspecified (principal); R09.89 Other specified symptoms and signs involving the circulatory and respiratory systems; S22.080A Wedge compression fracture of T11-T12 vertebra, initial encounter for closed fracture; Z95.828 Presence of other vascular implants and grafts | CPT/HCPCS: 71046 ==

== ENCOUNTER 2024-06-13 01:51 | Emergency (ER) | payer OTHER ==
[2024-06-13] MEDS ORDERED: Acetaminophen 500 MG TAB ONE (04:06)
[2024-06-13 04:09] LABS: #Basophils Less than 0.03 10x3/uL (0.0-0.2); %Basophils 0.2 % (0.0-1.0); %Eosinophils 0.4 % (0.0-10.0); %Lymphocytes 19.6 % (21.0-51.0); %Monocytes 5.2 % (0.0-10.0); %Neutrophils 74.1 % (42.0-75.0); Hemoglobin 12.5 g/dL (12.0-16.0); Mean Corpuscular HGB CONC 32.9 g/dL (32.0-36.0); Mean Corpuscular Hemoglobin 29.9 pg (27.0-31.0); Mean Corpuscular Volume 90.9 fL (78.0-98.0); Mean Platelet Volume 11.5 fL (7.4-10.4); Platelet Count 162 10x3/uL (130-400); RBC Distribution Width 12.6 % (11.5-14.5); Red Blood Cell (RBC) Count 4.18 mill/uL (4.20-5.40)
[2024-06-13 04:33] LABS: ALT (SGPT) 20 U/L (8-55); AST (SGOT) 16 U/L (5-34); Albumin 3.3 g/dL (3.5-5.0); Alkaline Phosphatase 118 U/L (40-110); Anion Gap 15 mmol/L (10-20); BUN (Urea Nitrogen) 36 mg/dL (9.8-20.1); Bilirubin, Total 0.3 mg/dL (0.2-1.2); Calc. Creatinine Clearance 0 mL/min (70-130); Carbon Dioxide 27 mmol/L (22-29); Chloride 105 mmol/L (98-107); Estimated GFR 18; Globulin 3.1 g/dL (2.4-3.5); Glucose 146 mg/dL (70-105); Potassium 3.9 mmol/L (3.5-5.1); Protein, Total 6.4 g/dL (6.0-8.3); Sodium 143 mmol/L (136-145)
== END 2024-06-13 09:02 | disposition home or self-care (01) ==
LOC: ERS 01:51
DX: S70.01XA Contusion of right hip, initial encounter (principal); S05.12XA Contusion of eyeball and orbital tissues, left eye, initial encounter; I12.0 Hypertensive chronic kidney disease with stage 5 chronic kidney disease or end stage renal disease; E11.22 Type 2 diabetes mellitus with diabetic chronic kidney disease; N18.6 End stage renal disease; E11.40 Type 2 diabetes mellitus with diabetic neuropathy, unspecified; E11.39 Type 2 diabetes mellitus with other diabetic ophthalmic complication; H42 Glaucoma in diseases classified elsewhere; I48.91 Unspecified atrial fibrillation; I25.10 Atherosclerotic heart disease of native coronary artery without angina pectoris; I25.2 Old myocardial infarction; W18.09XA Striking against other object with subsequent fall, initial encounter; Y92.009 Unspecified place in unspecified non-institutional (private) residence as the place of occurrence of the external cause; Z55.0 Illiteracy and low-level literacy; Z99.2 Dependence on renal dialysis; Z95.5 Presence of coronary angioplasty implant and graft; Z87.891 Personal history of nicotine dependence
CPT/HCPCS: 36415; 70450; 71045; 72125; 72170; 72192; 80053; 85025; 93005

== ENCOUNTER 2024-08-01 20:11 | Inpatient (IN) | payer OTHER ==
[2024-08-01 20:52] LABS: #Basophils Less than 0.03 10x3/uL (0.0-0.2); %Basophils 0.2 % (0.0-1.0); %Eosinophils 1.9 % (0.0-10.0); %Lymphocytes 19.5 % (21.0-51.0); %Monocytes 6.5 % (0.0-10.0); %Neutrophils 71.5 % (42.0-75.0); Hematocrit 33.9 % (36.0-47.0); Hemoglobin 11.7 g/dL (12.0-16.0); Mean Corpuscular HGB CONC 34.5 g/dL (32.0-36.0); Mean Corpuscular Hemoglobin 30.1 pg (27.0-31.0); Mean Corpuscular Volume 87.1 fL (78.0-98.0); Platelet Count 155 10x3/uL (130-400); RBC Distribution Width 12.5 % (11.5-14.5); Red Blood Cell (RBC) Count 3.89 mill/uL (4.20-5.40)
[2024-08-01 21:07] LABS: ALT (SGPT) 15 U/L (8-55); AST (SGOT) 18 U/L (5-34); Albumin 3.2 g/dL (3.5-5.0); Alkaline Phosphatase 115 U/L (40-110); Anion Gap 18 mmol/L (10-20); BUN (Urea Nitrogen) 36 mg/dL (9.8-20.1); Bilirubin, Total 0.5 mg/dL (0.2-1.2); Calc. Creatinine Clearance 0 mL/min (70-130); Calcium 7.8 mg/dL (7.8-10.44); Carbon Dioxide 25 mmol/L (22-29); Chloride 98 mmol/L (98-107); Estimated GFR 14; Globulin 3.2 g/dL (2.4-3.5); Glucose 158 mg/dL (70-105); Potassium 3.6 mmol/L (3.5-5.1); Protein, Total 6.4 g/dL (6.0-8.3); Sodium 137 mmol/L (136-145)
[2024-08-01 21:08] LABS: Acetaminophen Less than 10 mcg/mL (Less than 10); Alcohol Less than 10.0 mg/dL (Less than 10); Salicylate Less than 8.0 mg/dL (Less than 8.0)
[2024-08-01 22:12] LABS: Amphetamine Not Detected (NotDetected); Barbiturates Screen Not Detected (NotDetected); Benzodiazepine Screen Not Detected (NotDetected); Cocaine Metabolite Screen Not Detected (NotDetected); Methadone Not Detected (NotDetected); Methamphetamine Not Detected (NotDetected); Opiate Screen Not Detected (NotDetected); Oxycodone Screen Not Detected (NotDetected); Phencyclidine (PCP) Not Detected (NotDetected); THC/Cannabinoid Screen Not Detected (NotDetected); Tricyclic Screen Not Detected (NotDetected)
[2024-08-01 22:19] LABS: Bacteria/HPF 3+ HPF (None Seen); Bilirubin Negative (Negative); Blood, Urine 1+ (Negative); CAUTI Indications for Culture Alt mental st,lethar; Clarity Turbid (Clear); Glucose, Urine (Dipstick) Normal (Negative); Ketone, Urine Negative (Negative); Leukocyte 500 Leu/uL (Negative); Nitrite Negative (Negative); Protein, Urine (Dipstick) 100 mg/dL (Neg-Trace); Specific Gravity, Urine 1.009 (1.002-1.036); WBC/HPF Greater than 50 HPF (0-3); Yeast-Budding 1+ HPF (None Seen); pH, Urine 6.5 (5.0-9.0)
[2024-08-01 22:21] LABS: Urine Culture Reflex Yes Yes
[2024-08-02] MEDS ORDERED: Ondansetron PF 4 MG/2 ML Vial IVP PRN (16:06)
[2024-08-02] MEDS ORDERED: Calcium Carbonate 500 MG ChewTAB PO PRN (16:06)
[2024-08-02] MEDS ORDERED: Ondansetron ODT 4 MG TAB PO PRN (16:06)
[2024-08-02] MEDS ORDERED: Senokot S 8.6-50 MG TAB PO PRN (16:06)
[2024-08-02] MEDS ORDERED: LevoFLOXacin 500 mg/D5W 500 MG in Premix 1 BAG IVPB SCH (16:45)
[2024-08-02] MEDS: Mometasone Furoate 120 PUFF 220 MCG INH SCH (18:56)
[2024-08-02 19:38] VITALS: BMI 37.8
[2024-08-02] MEDS: Carvedilol 6.25 MG TAB PO SCH (20:20)
[2024-08-02] MEDS: Calcium Acetate 667 MG CAP PO SCH (20:21)
[2024-08-02] MEDS: LevoFLOXacin 750 mg/D5W 750 MG in Premix 1 BAG IVPB SCH (20:21)
[2024-08-02] MEDS: Mirtazapine 30 MG TAB PO SCH (20:21)
[2024-08-02] MEDS: Sertraline 100 MG TAB PO SCH (20:21)
[2024-08-02] MEDS: Rosuvastatin 10 MG TAB PO SCH (20:21)
[2024-08-02] MEDS: Apixaban 5 MG TAB PO SCH (20:22)
[2024-08-02] MEDS: rOPINIRole HCl 0.5 MG TAB PO SCH (20:22)
[2024-08-02] MEDS: cloNIDine 0.1 MG TAB PO SCH (20:22)
[2024-08-02] MEDS ORDERED: Glucagon 1 MG/ML KIT IM PRN (20:54)
[2024-08-02] MEDS ORDERED: Dextrose 5% in Water 1,000 ML IV PRN (20:54)
[2024-08-02] MEDS ORDERED: Dextrose 50% Abboject 50 ML SYRINGE SLOW IVP PRN (20:54)
[2024-08-02] MEDS: Insulin Lispro 100 UNIT/ML 10 ML VIAL SC PRN (22:35)
[2024-08-03 05:38] LABS: Hemoglobin A1c 7.1 % (4.0-6.0)
[2024-08-03 05:48] LABS: #Basophils 0.04 10x3/uL (0.0-0.2); %Basophils 0.5 % (0.0-1.0); %Eosinophils 2.4 % (0.0-10.0); %Lymphocytes 24.5 % (21.0-51.0); %Monocytes 6.7 % (0.0-10.0); %Neutrophils 65.8 % (42.0-75.0); Hematocrit 34.4 % (36.0-47.0); Hemoglobin 11.6 g/dL (12.0-16.0); Mean Corpuscular HGB CONC 33.7 g/dL (32.0-36.0); Mean Corpuscular Hemoglobin 29.7 pg (27.0-31.0); Mean Platelet Volume 11.2 fL (7.4-10.4); Platelet Count 172 10x3/uL (130-400); RBC Distribution Width 12.4 % (11.5-14.5); Red Blood Cell (RBC) Count 3.91 mill/uL (4.20-5.40)
[2024-08-03 06:02] LABS: ALT (SGPT) 14 U/L (8-55); AST (SGOT) 17 U/L (5-34); Albumin 3.1 g/dL (3.5-5.0); Alkaline Phosphatase 101 U/L (40-110); Anion Gap 14 mmol/L (10-20); BUN (Urea Nitrogen) 22 mg/dL (9.8-20.1); Bilirubin, Total 0.4 mg/dL (0.2-1.2); Calc. Creatinine Clearance 31 mL/min (70-130); Calcium 8.4 mg/dL (7.8-10.44); Carbon Dioxide 26 mmol/L (22-29); Chloride 101 mmol/L (98-107); Estimated GFR 19; Globulin 3.3 g/dL (2.4-3.5); Glucose 97 mg/dL (70-105); Potassium 4.2 mmol/L (3.5-5.1); Protein, Total 6.4 g/dL (6.0-8.3); Sodium 137 mmol/L (136-145)
[2024-08-03] MEDS: Amlodipine 10 MG TAB PO SCH (08:44)
[2024-08-03] MEDS: Alogliptin 6.25 MG TAB PO SCH (08:44)
[2024-08-03] MEDS: Cholecalciferol 1,000 UNITS (25 MCG) TAB PO SCH (08:44)
[2024-08-03] MEDS: Clopidogrel Bisulfate 75 MG TAB PO SCH (08:44)
[2024-08-03] MEDS: Losartan 25 MG TAB PO SCH (08:45)
[2024-08-03] MEDS: glipiZIDE 5 MG TAB PO SCH (08:45)
[2024-08-03] MEDS: Ezetimibe 10 MG TAB PO SCH (08:45)
[2024-08-03] MEDS ORDERED: traMADol HCl 50 MG TAB PO PRN (08:55)
[2024-08-03] MEDS: traMADol HCl 50 MG TAB PO PRN (12:11)
[2024-08-03] MEDS: LevoFLOXacin 250 mg/D5W 250 MG in Premix 1 BAG IVPB SCH (18:15)
[2024-08-04] MEDS ORDERED: LevoFLOXacin 250 mg/D5W 250 MG in Premix 1 BAG IVPB SCH (09:00)
[2024-08-04] MEDS ORDERED: LevoFLOXacin 500 mg/D5W 500 MG in Premix 1 BAG IVPB SCH (09:00)
[2024-08-04] MEDS: Carvedilol 3.125 MG TAB PO SCH (16:30)
[2024-08-04] MEDS: Insulin Lispro 100 UNIT/ML 10 ML VIAL SC PRN (16:30)
[2024-08-04 16:53] LABS: #Basophils 0.03 10x3/uL (0.0-0.2); %Basophils 0.2 % (0.0-1.0); %Eosinophils 1.1 % (0.0-10.0); %Lymphocytes 12.5 % (21.0-51.0); %Monocytes 4.8 % (0.0-10.0); %Neutrophils 81.2 % (42.0-75.0); Mean Corpuscular HGB CONC 35.3 g/dL (32.0-36.0); Mean Corpuscular Hemoglobin 30.5 pg (27.0-31.0); Mean Corpuscular Volume 86.5 fL (78.0-98.0); Mean Platelet Volume 11.1 fL (7.4-10.4); Platelet Count 167 10x3/uL (130-400); RBC Distribution Width 12.3 % (11.5-14.5); Red Blood Cell (RBC) Count 3.93 mill/uL (4.20-5.40)
[2024-08-04 19:35] LABS: ALT (SGPT) 12 U/L (8-55); AST (SGOT) 15 U/L (5-34); Alkaline Phosphatase 100 U/L (40-110); Anion Gap 16 mmol/L (10-20); BUN (Urea Nitrogen) 22 mg/dL (9.8-20.1); Bilirubin, Total 0.3 mg/dL (0.2-1.2); Calc. Creatinine Clearance 28 mL/min (70-130); Calcium 8.4 mg/dL (7.8-10.44); Carbon Dioxide 26 mmol/L (22-29); Chloride 97 mmol/L (98-107); Estimated GFR 17; Globulin 3.2 g/dL (2.4-3.5); Glucose 172 mg/dL (70-105); Lipase 47 U/L (8-78); Magnesium 1.6 mg/dL (1.6-2.6); Protein, Total 6.2 g/dL (6.0-8.3); Sodium 135 mmol/L (136-145)
[2024-08-05 04:56] LABS: #Basophils 0.03 10x3/uL (0.0-0.2); %Basophils 0.3 % (0.0-1.0); %Eosinophils 1.9 % (0.0-10.0); %Lymphocytes 25.9 % (21.0-51.0); %Monocytes 7.7 % (0.0-10.0); %Neutrophils 63.9 % (42.0-75.0); Hematocrit 32.7 % (36.0-47.0); Hemoglobin 11.3 g/dL (12.0-16.0); Mean Corpuscular HGB CONC 34.6 g/dL (32.0-36.0); Mean Corpuscular Hemoglobin 29.7 pg (27.0-31.0); Mean Corpuscular Volume 85.8 fL (78.0-98.0); Mean Platelet Volume 11.4 fL (7.4-10.4); Platelet Count 152 10x3/uL (130-400); RBC Distribution Width 12.6 % (11.5-14.5); Red Blood Cell (RBC) Count 3.81 mill/uL (4.20-5.40)
[2024-08-05 05:14] LABS: ALT (SGPT) 10 U/L (8-55); AST (SGOT) 15 U/L (5-34); Alkaline Phosphatase 95 U/L (40-110); Anion Gap 17 mmol/L (10-20); BUN (Urea Nitrogen) 31 mg/dL (9.8-20.1); Bilirubin, Total 0.4 mg/dL (0.2-1.2); Calc. Creatinine Clearance 23 mL/min (70-130); Calcium 8.5 mg/dL (7.8-10.44); Carbon Dioxide 25 mmol/L (22-29); Chloride 95 mmol/L (98-107); Estimated GFR 13; Globulin 3.1 g/dL (2.4-3.5); Glucose 147 mg/dL (70-105); Magnesium 1.8 mg/dL (1.6-2.6); Potassium 4.5 mmol/L (3.5-5.1); Protein, Total 6.1 g/dL (6.0-8.3); Sodium 132 mmol/L (136-145)
[2024-08-05] MEDS: Acetaminophen 325 MG TAB PO PRN (08:39)
[2024-08-05] MEDS ORDERED: traMADol HCl 50 MG TAB PO PRN (10:19)
[2024-08-05] MEDS: traMADol HCl 50 MG TAB PO SCH (10:39)
[2024-08-05 16:38] VITALS: BP 105/51; TEMP 98.3
== END 2024-08-05 18:39 | disposition home or self-care (01) | DRG 880 ==
LOC: ERS 20:11 → 2NO 08-02 14:30 → OBSVTOIN 08-04 08:21
PROVIDERS: ADMIT Internal Medicine; ATTEND Family Medicine
PROC: 5A1D70Z Performance of Urinary Filtration, Intermittent, Less than 6 Hours Per Day (ICD-10-PCS; principal; 2024-08-04)
PROC: 5A09357 Assistance with Respiratory Ventilation, Less than 24 Consecutive Hours, Continuous Positive Airway Pressure (ICD-10-PCS; 2024-08-05)
DX: F41.9 Anxiety disorder, unspecified (principal); N18.6 End stage renal disease; N39.0 Urinary tract infection, site not specified; R45.851 Suicidal ideations; I12.0 Hypertensive chronic kidney disease with stage 5 chronic kidney disease or end stage renal disease; G99.2 Myelopathy in diseases classified elsewhere; F32.A Depression, unspecified; E78.5 Hyperlipidemia, unspecified; E11.22 Type 2 diabetes mellitus with diabetic chronic kidney disease; D63.1 Anemia in chronic kidney disease; R00.1 Bradycardia, unspecified; I25.10 Atherosclerotic heart disease of native coronary artery without angina pectoris; Z99.2 Dependence on renal dialysis; Z88.5 Allergy status to narcotic agent; Z88.0 Allergy status to penicillin; Z88.1 Allergy status to other antibiotic agents; Z88.2 Allergy status to sulfonamides; Z91.013 Allergy to seafood; Z79.84 Long term (current) use of oral hypoglycemic drugs; Z79.899 Other long term (current) drug therapy
CPT/HCPCS: 36415; 36416; 70450; 70486; 71250; 72125; 74177; 80053; 80306; 80307; 81001; 83036; 83690; 83735; 84443; 85025; 87086; 90935; 93005; 94660; 94664; 96365; 96376; G0257; G0378; J1815; J1956

== ENCOUNTER 2024-09-20 18:17 | Emergency (ER) | payer OTHER ==
[2024-09-20 19:37] LABS: #Basophils 0.03 10x3/uL (0.0-0.2); %Basophils 0.4 % (0.0-1.0); %Eosinophils 1.9 % (0.0-10.0); %Lymphocytes 19.9 % (21.0-51.0); %Monocytes 6.1 % (0.0-10.0); %Neutrophils 71.4 % (42.0-75.0); Hematocrit 28.2 % (36.0-47.0); Hemoglobin 9.3 g/dL (12.0-16.0); Mean Corpuscular Hemoglobin 29.7 pg (27.0-31.0); Mean Corpuscular Volume 90.1 fL (78.0-98.0); Mean Platelet Volume 10.6 fL (7.4-10.4); Platelet Count 155 10x3/uL (130-400); RBC Distribution Width 12.7 % (11.5-14.5); Red Blood Cell (RBC) Count 3.13 mill/uL (4.20-5.40)
[2024-09-20] MEDS ORDERED: Ondansetron PF 4 MG/2 ML Vial ONE (19:48)
[2024-09-20 20:24] LABS: ALT (SGPT) 10 U/L (8-55); AST (SGOT) 16 U/L (5-34); Albumin 2.9 g/dL (3.4-4.8); Alkaline Phosphatase 92 U/L (40-110); Anion Gap 12 mmol/L (10-20); BUN (Urea Nitrogen) 43 mg/dL (9.8-20.1); Calc. Creatinine Clearance 0 mL/min (70-130); Carbon Dioxide 24 mmol/L (23-31); Chloride 108 mmol/L (98-107); Estimated GFR 16; Glucose 150 mg/dL (80-115); Lipase 33 U/L (8-78); Magnesium 1.9 mg/dL (1.6-2.6); Potassium 4.4 mmol/L (3.5-5.1); Protein, Total 5.9 g/dL (5.8-8.1); Sodium 140 mmol/L (136-145)
[2024-09-20 20:26] LABS: Troponin I 0.033 ng/mL (< 0.028)
[2024-09-20 20:40] LABS: Bilirubin, Total 0.3 mg/dL (0.2-1.2)
[2024-09-20] MEDS ORDERED: cloNIDine 0.1 MG TAB ONE (21:02)
== END 2024-09-20 22:19 | disposition home or self-care (01) ==
LOC: ERS 18:17
DX: R11.2 Nausea with vomiting, unspecified (principal); R53.1 Weakness; E11.40 Type 2 diabetes mellitus with diabetic neuropathy, unspecified; E11.39 Type 2 diabetes mellitus with other diabetic ophthalmic complication; H42 Glaucoma in diseases classified elsewhere; E11.22 Type 2 diabetes mellitus with diabetic chronic kidney disease; I12.0 Hypertensive chronic kidney disease with stage 5 chronic kidney disease or end stage renal disease; N18.6 End stage renal disease; E78.00 Pure hypercholesterolemia, unspecified; K21.9 Gastro-esophageal reflux disease without esophagitis; G43.909 Migraine, unspecified, not intractable, without status migrainosus; I48.91 Unspecified atrial fibrillation; I25.10 Atherosclerotic heart disease of native coronary artery without angina pectoris; I25.2 Old myocardial infarction; Z99.2 Dependence on renal dialysis; Z79.84 Long term (current) use of oral hypoglycemic drugs; Z79.82 Long term (current) use of aspirin; Z79.01 Long term (current) use of anticoagulants; Z79.02 Long term (current) use of antithrombotics/antiplatelets; Z79.899 Other long term (current) drug therapy; Z87.891 Personal history of nicotine dependence; Z85.41 Personal history of malignant neoplasm of cervix uteri; Z95.5 Presence of coronary angioplasty implant and graft
CPT/HCPCS: 70450; 80053; 83605; 83690; 83735; 84484; 85025; 93005; 96374; J2405

== ENCOUNTER 2024-10-31 00:52 | Inpatient (IN) | payer OTHER ==
[2024-10-31 01:36] LABS: Albumin 2.4 g/dL (3.4-4.8); Chloride 110 mmol/L (98-107); Potassium 4.4 mmol/L (3.5-5.1); Sodium 137 mmol/L (136-145)
[2024-10-31 01:37] LABS: Calcium 7.1 mg/dL (7.8-10.44); Glucose 184 mg/dL (80-115)
[2024-10-31 01:38] LABS: Globulin 3.9 g/dL (2.4-3.5); Protein, Total 6.3 g/dL (5.8-8.1)
[2024-10-31 01:39] LABS: Anion Gap 15 mmol/L (10-20); Carbon Dioxide 16 mmol/L (23-31)
[2024-10-31 01:40] LABS: Alkaline Phosphatase 93 U/L (40-110); Bilirubin, Total 0.4 mg/dL (0.2-1.2)
[2024-10-31 01:41] LABS: BUN (Urea Nitrogen) 53 mg/dL (9.8-20.1); Calc. Creatinine Clearance 0 mL/min (70-130); Estimated GFR 8
[2024-10-31 01:43] LABS: ALT (SGPT) 10 U/L (8-55); AST (SGOT) 13 U/L (5-34)
[2024-10-31 01:48] LABS: Troponin I 0.031 ng/mL (< 0.028)
[2024-10-31 01:49] LABS: #Basophils 0.01 10x3/uL (0.0-0.2); #Monocytes 0.34 10x3/uL (0.11-0.59); %Basophils 0.1 % (0.0-1.0); %Eosinophils 1.4 % (0.0-10.0); %Monocytes 4.6 % (0.0-10.0); %Neutrophils 85.2 % (42.0-75.0); Hematocrit 34.7 % (36.0-47.0); Hemoglobin 11.3 g/dL (12.0-16.0); Mean Corpuscular HGB CONC 32.6 g/dL (32.0-36.0); Mean Corpuscular Hemoglobin 29.4 pg (27.0-31.0); Mean Corpuscular Volume 90.1 fL (78.0-98.0); Platelet Count 126 10x3/uL (130-400); RBC Distribution Width 13.2 % (11.5-14.5); Red Blood Cell (RBC) Count 3.85 mill/uL (4.20-5.40); White Blood Cell (WBC) Count 7.39 10x3/uL (4.8-10.8)
[2024-10-31 04:47] LABS: Bacteria/HPF None Seen HPF (None Seen); Bilirubin Negative (Negative); Blood, Urine 2+ (Negative); CAUTI Indications for Culture Pelvic or flank pain; Clarity Clear (Clear); Glucose, Urine (Dipstick) 100 mg/dL (Negative); Ketone, Urine Negative (Negative); Leukocyte 75 Leu/uL (Negative); Nitrite Negative (Negative); Protein, Urine (Dipstick) 300 mg/dL (Neg-Trace); Specific Gravity, Urine 1.007 (1.002-1.036); Squamous Epithelial 0-3 HPF (0-3); Urobilinogen Normal mg/dL (Less than 2)
[2024-10-31 04:49] LABS: Urine Culture Reflex Yes Yes
[2024-10-31] MEDS ORDERED: Acetaminophen 500 MG TAB ONE (05:16)
[2024-10-31] MEDS ORDERED: Azithromycin 500 MG VIAL ONE (05:17)
[2024-10-31] MEDS ORDERED: LevoFLOXacin 750 mg/D5W 150 ml Premix Bag ONE (05:33)
[2024-10-31 07:45] LABS: Troponin I 0.049 ng/mL (< 0.028)
[2024-10-31] MEDS ORDERED: Glucagon 1 MG/ML KIT IM PRN (08:11)
[2024-10-31] MEDS ORDERED: Dextrose 50% Abboject 50 ML SYRINGE SLOW IVP PRN (08:11)
[2024-10-31] MEDS ORDERED: Senokot S 8.6-50 MG TAB PO PRN (08:11)
[2024-10-31] MEDS ORDERED: Dextrose 5% in Water 1,000 ML IV PRN (08:11)
[2024-10-31 08:56] LABS: HBSAB Concentration Less than 8.00 mIU/mL; Hep B Core Total Ab NONREACTIVE (NonReactive); Hep B Core Total Index 0.18 S/CO (0-0.79); Hep B Surf AB NONREACTIVE (NonReactive); Hep B Surf Ag NONREACTIVE S/CO (NonReactive); Hep C IgG Ab NONREACTIVE S/CO (NonReactive)
[2024-10-31 09:35] VITALS: BMI 35.3
[2024-10-31 10:28] LABS: Troponin I 0.036 ng/mL (< 0.028)
[2024-10-31] MEDS ORDERED: Heparin 5,000 UNITS/ML VIAL ONE (10:29)
[2024-10-31] MEDS: Heparin 5,000 UNITS/ML VIAL SC SCH (10:35)
[2024-10-31] MEDS ORDERED: LevoFLOXacin 750 mg/D5W 750 MG in Premix 1 BAG IVPB SCH (11:00)
[2024-10-31] MEDS ORDERED: Heparin 10,000 UNITS/ 10 ML VIAL ONE (11:20)
[2024-10-31] MEDS: LevoFLOXacin 750 mg/D5W 750 MG in Premix 1 BAG IVPB SCH (18:44)
[2024-10-31] MEDS ORDERED: Mirtazapine 30 MG TAB PO PRN (18:59)
[2024-10-31] MEDS: rOPINIRole HCl 1 MG TAB PO SCH (20:06)
[2024-10-31] MEDS: cloNIDine 0.1 MG TAB PO SCH (20:06)
[2024-10-31] MEDS: Acetaminophen 325 MG TAB PO PRN (20:07)
[2024-11-01 04:54] LABS: #Basophils Less than 0.03 10x3/uL (0.0-0.2); %Basophils 0.3 % (0.0-1.0); %Eosinophils 3.7 % (0.0-10.0); %Lymphocytes 17.2 % (21.0-51.0); %Monocytes 6.2 % (0.0-10.0); %Neutrophils 72.3 % (42.0-75.0); Hemoglobin 9.3 g/dL (12.0-16.0); Mean Corpuscular HGB CONC 33.2 g/dL (32.0-36.0); Mean Corpuscular Hemoglobin 29.2 pg (27.0-31.0); Mean Corpuscular Volume 88.1 fL (78.0-98.0); Platelet Count 172 10x3/uL (130-400); RBC Distribution Width 12.9 % (11.5-14.5); Red Blood Cell (RBC) Count 3.18 mill/uL (4.20-5.40)
[2024-11-01 06:01] LABS: Anion Gap 13 mmol/L (10-20); BUN (Urea Nitrogen) 24 mg/dL (9.8-20.1); Calc. Creatinine Clearance 25 mL/min (70-130); Carbon Dioxide 27 mmol/L (23-31); Chloride 106 mmol/L (98-107); Estimated GFR 16; Glucose 130 mg/dL (80-115); Potassium 4.4 mmol/L (3.5-5.1); Sodium 142 mmol/L (136-145)
[2024-11-01] MEDS ORDERED: Heparin 10,000 UNITS/ 10 ML VIAL ONE (11:23)
[2024-11-01] MEDS ORDERED: Albuterol 2.5 MG (3 mL) NEB NEB PRN (13:56)
[2024-11-01] MEDS ORDERED: Non-Formulary Item 1 EACH (Albuterol Sulfate [Proair Digihaler] 90 MCG Aer.Pw.Bas) IH PRN (14:00)
[2024-11-01] MEDS ORDERED: Simethicone Chewable 80 MG TAB PO PRN (14:28)
[2024-11-01] MEDS: Albuterol 2.5 MG (3 mL) NEB NEB SCH ×2 (15:17→18:36)
[2024-11-01] MEDS: Calcium Acetate 667 MG CAP PO SCH (16:23)
[2024-11-01] MEDS: Amlodipine 10 MG TAB PO SCH (16:25)
[2024-11-01] MEDS ORDERED: Budesonide 0.5 MG/2 ML NEB INH SCH ×2 (18:30)
[2024-11-01] MEDS: Mometasone 100 MCG/Formoterol 5 MCG 120 PUFF INHALER INH SCH (18:37)
[2024-11-01] MEDS: Rosuvastatin 10 MG TAB PO SCH (20:09)
[2024-11-01] MEDS: Sertraline 100 MG TAB PO SCH (20:09)
[2024-11-01] MEDS: Icosapent Ethyl 1 GM CAPSULE PO SCH (20:09)
[2024-11-01] MEDS: Azelastine 137 MCG/NASAL Spray 30 ML NS SCH (20:10)
[2024-11-01] MEDS: Loratadine 10 MG TAB PO SCH (20:10)
[2024-11-01] MEDS: Fluticasone Propionate Nasal Spray 16 gm Bottle NASAL SCH (20:10)
[2024-11-01] MEDS: Pantoprazole DR 40 MG TAB PO SCH (20:10)
[2024-11-01] MEDS: Apixaban 5 MG TAB PO SCH (20:10)
[2024-11-02 04:21] LABS: #Basophils Less than 0.03 10x3/uL (0.0-0.2); %Basophils 0.3 % (0.0-1.0); %Eosinophils 3.7 % (0.0-10.0); %Monocytes 8.5 % (0.0-10.0); %Neutrophils 62.2 % (42.0-75.0); Hematocrit 26.6 % (36.0-47.0); Hemoglobin 8.7 g/dL (12.0-16.0); Mean Corpuscular HGB CONC 32.7 g/dL (32.0-36.0); Mean Corpuscular Hemoglobin 29.4 pg (27.0-31.0); Mean Corpuscular Volume 89.9 fL (78.0-98.0); Mean Platelet Volume 10.7 fL (7.4-10.4); Platelet Count 183 10x3/uL (130-400); RBC Distribution Width 12.5 % (11.5-14.5); Red Blood Cell (RBC) Count 2.96 mill/uL (4.20-5.40)
[2024-11-02 04:44] LABS: Anion Gap 14 mmol/L (10-20); BUN (Urea Nitrogen) 20 mg/dL (9.8-20.1); Calc. Creatinine Clearance 26 mL/min (70-130); Carbon Dioxide 26 mmol/L (23-31); Chloride 101 mmol/L (98-107); Estimated GFR 17; Glucose 138 mg/dL (80-115); Sodium 137 mmol/L (136-145)
[2024-11-02] MEDS: LevoFLOXacin 500 mg/D5W 500 MG in Premix 1 BAG IVPB SCH (05:41)
[2024-11-02] MEDS: glipiZIDE 5 MG TAB PO SCH (07:59)
[2024-11-02] MEDS: Cholecalciferol 1,000 UNITS (25 MCG) TAB PO SCH (07:59)
[2024-11-02] MEDS: Clopidogrel Bisulfate 75 MG TAB PO SCH (08:00)
[2024-11-02] MEDS: Losartan 25 MG TAB PO SCH (08:00)
[2024-11-02] MEDS: Ezetimibe 10 MG TAB PO SCH (08:00)
[2024-11-02] MEDS: Saxagliptin 2.5 MG TAB PO SCH (08:01)
[2024-11-03] MEDS ORDERED: Albumin 25% 25 GM (100 mL) BOT IVPB SCH (08:30)
[2024-11-03] MEDS: EPOETIN ALFA-EPBX (ESRD) 10,000 UNITS/ML VIAL IVP SCH (14:14)
[2024-11-03] MEDS: hydrOXYzine 25 MG TAB PO PRN (20:20)
[2024-11-04] MEDS: traMADol HCl 50 MG TAB PO PRN (11:38)
[2024-11-05 05:11] LABS: Anion Gap 15 mmol/L (10-20); BUN (Urea Nitrogen) 38 mg/dL (9.8-20.1); Calc. Creatinine Clearance 22 mL/min (70-130); Calcium 8.1 mg/dL (7.8-10.44); Carbon Dioxide 23 mmol/L (23-31); Chloride 100 mmol/L (98-107); Estimated GFR 14; Glucose 93 mg/dL (80-115); Potassium 4.3 mmol/L (3.5-5.1); Sodium 134 mmol/L (136-145)
[2024-11-05] MEDS: LevoFLOXacin 500 MG TAB PO SCH (13:23)
[2024-11-06 04:54] LABS: Anion Gap 16 mmol/L (10-20); BUN (Urea Nitrogen) 52 mg/dL (9.8-20.1); Calc. Creatinine Clearance 19 mL/min (70-130); Calcium 7.9 mg/dL (7.8-10.44); Carbon Dioxide 22 mmol/L (23-31); Chloride 100 mmol/L (98-107); Estimated GFR 11; Glucose 100 mg/dL (80-115); Potassium 4.5 mmol/L (3.5-5.1); Sodium 133 mmol/L (136-145)
[2024-11-06 08:20] LABS: #Basophils Less than 0.03 10x3/uL (0.0-0.2); %Basophils 0.2 % (0.0-1.0); %Eosinophils 1.6 % (0.0-10.0); %Lymphocytes 8.4 % (21.0-51.0); %Monocytes 4.3 % (0.0-10.0); %Neutrophils 84.8 % (42.0-75.0); Hematocrit 26.5 % (36.0-47.0); Hemoglobin 8.8 g/dL (12.0-16.0); Mean Corpuscular HGB CONC 33.2 g/dL (32.0-36.0); Mean Corpuscular Hemoglobin 29.1 pg (27.0-31.0); Mean Corpuscular Volume 87.7 fL (78.0-98.0); Mean Platelet Volume 10.4 fL (7.4-10.4); Platelet Count 169 10x3/uL (130-400); RBC Distribution Width 12.8 % (11.5-14.5); Red Blood Cell (RBC) Count 3.02 mill/uL (4.20-5.40)
[2024-11-06] MEDS ORDERED: Heparin 10,000 UNITS/ 10 ML VIAL ONE (10:59)
[2024-11-06] MEDS: LevoFLOXacin 500 MG TAB PO SCH (16:12)
[2024-11-06] MEDS: Acetaminophen 325 MG TAB PO PRN (16:17)
[2024-11-06] MEDS: Insulin Regular, Human 100 UNIT/ML 10 ML VIAL SC PRN (18:36)
[2024-11-07 05:26] LABS: #Basophils Less than 0.03 10x3/uL (0.0-0.2); %Basophils 0.3 % (0.0-1.0); %Eosinophils 1.7 % (0.0-10.0); %Lymphocytes 17.2 % (21.0-51.0); %Monocytes 7.9 % (0.0-10.0); %Neutrophils 72.2 % (42.0-75.0); Hematocrit 25.6 % (36.0-47.0); Hemoglobin 8.4 g/dL (12.0-16.0); Mean Corpuscular HGB CONC 32.8 g/dL (32.0-36.0); Mean Corpuscular Hemoglobin 28.8 pg (27.0-31.0); Mean Corpuscular Volume 87.7 fL (78.0-98.0); Platelet Count 169 10x3/uL (130-400); Red Blood Cell (RBC) Count 2.92 mill/uL (4.20-5.40)
[2024-11-07 16:01] VITALS: BP 123/70; TEMP 98.8
== END 2024-11-07 17:22 | disposition home or self-care (01) | DRG 193 ==
LOC: ERS 00:52 → ERHOLD 06:58 → OBS 17:35 → OBSVTOIN 11-02 09:13
PROVIDERS: ADMIT Internal Medicine; ATTEND Internal Medicine
PROC: 30233J1 Transfusion of Nonautologous Serum Albumin into Peripheral Vein, Percutaneous Approach (ICD-10-PCS; principal; 2024-11-03)
DX: J18.9 Pneumonia, unspecified organism (principal); J96.01 Acute respiratory failure with hypoxia; N18.6 End stage renal disease; I12.0 Hypertensive chronic kidney disease with stage 5 chronic kidney disease or end stage renal disease; E87.20 Acidosis, unspecified; J45.901 Unspecified asthma with (acute) exacerbation; N39.0 Urinary tract infection, site not specified; E11.22 Type 2 diabetes mellitus with diabetic chronic kidney disease; I25.10 Atherosclerotic heart disease of native coronary artery without angina pectoris; E78.5 Hyperlipidemia, unspecified; I48.0 Paroxysmal atrial fibrillation; F41.9 Anxiety disorder, unspecified; F32.A Depression, unspecified; Z99.2 Dependence on renal dialysis; Z88.1 Allergy status to other antibiotic agents; Z88.2 Allergy status to sulfonamides; Z88.8 Allergy status to other drugs, medicaments and biological substances; Z91.013 Allergy to seafood; Z90.710 Acquired absence of both cervix and uterus; Z90.49 Acquired absence of other specified parts of digestive tract; Z98.890 Other specified postprocedural states; D63.1 Anemia in chronic kidney disease; E88.09 Other disorders of plasma-protein metabolism, not elsewhere classified
CPT/HCPCS: 36415; 36416; 71045; 80048; 80053; 81001; 83605; 83880; 84145; 84484; 85025; 86141; 86704; 86706; 86803; 87040; 87077; 87086; 87340; 87428; 90935; 93005; 94640; 94664; 96365; 96366; G0257; J0456; J1644; J1815; J1956; J7611; P9047; Q5105

== ENCOUNTER 2024-12-13 04:19 | Emergency (ER) | payer OTHER ==
[2024-12-13] MEDS ORDERED: Morphine 4 MG/ML VIAL ONE (04:55)
[2024-12-13 05:30] LABS: #Basophils Less than 0.03 10x3/uL (0.0-0.2); %Basophils 0.1 % (0.0-1.0); %Eosinophils 0.7 % (0.0-10.0); %Lymphocytes 8.7 % (21.0-51.0); %Monocytes 4.7 % (0.0-10.0); %Neutrophils 85.4 % (42.0-75.0); Hematocrit 29.5 % (36.0-47.0); Hemoglobin 9.8 g/dL (12.0-16.0); Mean Corpuscular HGB CONC 33.2 g/dL (32.0-36.0); Mean Corpuscular Hemoglobin 28.5 pg (27.0-31.0); Mean Corpuscular Volume 85.8 fL (78.0-98.0); Mean Platelet Volume 10.4 fL (7.4-10.4); Platelet Count 195 10x3/uL (130-400); RBC Distribution Width 12.9 % (11.5-14.5); Red Blood Cell (RBC) Count 3.44 mill/uL (4.20-5.40)
[2024-12-13 05:33] LABS: ALT (SGPT) 12 U/L (8-55); AST (SGOT) 16 U/L (5-34); Albumin 2.7 g/dL (3.4-4.8); Alkaline Phosphatase 81 U/L (40-110); Anion Gap 14 mmol/L (10-20); BUN (Urea Nitrogen) 50 mg/dL (9.8-20.1); Bilirubin, Total 0.2 mg/dL (0.2-1.2); Calc. Creatinine Clearance 0 mL/min (70-130); Calcium 7.8 mg/dL (7.8-10.44); Carbon Dioxide 25 mmol/L (23-31); Chloride 104 mmol/L (98-107); Estimated GFR 10; Globulin 3.7 g/dL (2.4-3.5); Glucose 188 mg/dL (80-115); Lipase 44 U/L (8-78); Potassium 3.9 mmol/L (3.5-5.1); Protein, Total 6.4 g/dL (5.8-8.1); Sodium 139 mmol/L (136-145)
[2024-12-13 08:14] LABS: Bacteria/HPF None Seen HPF (None Seen); Bilirubin Negative (Negative); Blood, Urine 3+ (Negative); CAUTI Indications for Culture Pelvic or flank pain; Clarity Clear (Clear); Glucose, Urine (Dipstick) 100 mg/dL (Negative); Ketone, Urine Negative (Negative); Leukocyte Negative Leu/uL (Negative); Nitrite Negative (Negative); Protein, Urine (Dipstick) 600 mg/dL (Neg-Trace); RBC/HPF Greater than 50 HPF (0-3); Specific Gravity, Urine 1.022 (1.002-1.036); Squamous Epithelial 0-3 HPF (0-3); Urobilinogen Normal mg/dL (Less than 2); pH, Urine 7.5 (5.0-9.0)
[2024-12-13 08:17] LABS: Urine Culture Reflex Yes Yes
[2024-12-13] MEDS ORDERED: Iopamidol-370 76% 500 ML MDV (1 ML CHARGE) ONE (14:46)
== END 2024-12-13 10:00 | disposition home or self-care (01) ==
LOC: ERS 04:19
DX: R10.9 Unspecified abdominal pain (principal); I12.0 Hypertensive chronic kidney disease with stage 5 chronic kidney disease or end stage renal disease; E11.22 Type 2 diabetes mellitus with diabetic chronic kidney disease; N18.6 End stage renal disease; E11.40 Type 2 diabetes mellitus with diabetic neuropathy, unspecified; E78.2 Mixed hyperlipidemia; E78.5 Hyperlipidemia, unspecified; I25.10 Atherosclerotic heart disease of native coronary artery without angina pectoris; I25.2 Old myocardial infarction; Z55.0 Illiteracy and low-level literacy; Z95.5 Presence of coronary angioplasty implant and graft; Z99.2 Dependence on renal dialysis; Z79.02 Long term (current) use of antithrombotics/antiplatelets; Z79.899 Other long term (current) drug therapy; Z79.84 Long term (current) use of oral hypoglycemic drugs; Z79.82 Long term (current) use of aspirin; Z87.891 Personal history of nicotine dependence
CPT/HCPCS: 36415; 74177; 80053; 81001; 83690; 85025; 87077; 87086; 96374; J2270; Q9967

== ENCOUNTER 2025-06-25 15:27 | Emergency (ER) | payer OTHER ==
[2025-06-25 16:14] LABS: #Basophils Less than 0.03 10x3/uL (0.0-0.2); #Eosinophils 0.17 10x3/uL (0.0-0.7); #Monocytes 0.52 10x3/uL (0.11-0.59); #Neutrophils 8.94 10x3/uL (1.40-6.50); %Basophils 0.2 % (0.0-1.0); %Eosinophils 1.7 % (0.0-10.0); %Lymphocytes 5.6 % (21.0-51.0); %Monocytes 5.1 % (0.0-10.0); %Neutrophils 86.9 % (42.0-75.0); Hematocrit 25.2 % (36.0-47.0); Hemoglobin 8.1 g/dL (12.0-16.0); Mean Corpuscular Hemoglobin 29.7 pg (27.0-31.0); Mean Corpuscular Volume 92.3 fL (78.0-98.0); Platelet Count 209 10x3/uL (130-400); Red Blood Cell (RBC) Count 2.73 mill/uL (4.20-5.40); White Blood Cell (WBC) Count 10.27 10x3/uL (4.8-10.8)
[2025-06-25 16:29] LABS: ALT (SGPT) 11 U/L (Less than 34); AST (SGOT) 17 U/L (11-34); Albumin 2.7 g/dL (3.1-4.5); Alkaline Phosphatase 71 U/L (40-110); Anion Gap 17 mmol/L (10-20); BUN (Urea Nitrogen) 85 mg/dL (9.8-20.1); Bilirubin, Total 0.2 mg/dL (0.3-1.2); Calc. Creatinine Clearance 0 mL/min (70-130); Calcium 7.7 mg/dL (7.8-10.44); Carbon Dioxide 17 mmol/L (23-31); Chloride 108 mmol/L (98-107); Globulin 3.9 g/dL (2.4-3.5); Glucose 102 mg/dL (80-115); Potassium 4.3 mmol/L (3.5-5.1); Sodium 138 mmol/L (136-145)
[2025-06-25 16:45] LABS: Lipase 34 U/L (8-78); Magnesium 1.6 mg/dL (1.6-2.6)
[2025-06-25] MEDS ORDERED: Acetaminophen 500 MG TAB ONE (17:29)
[2025-06-25 17:56] LABS: Bacteria/HPF 2+ HPF (None Seen); CAUTI Indications for Culture Fever or rigors; Glucose, Urine (Dipstick) Normal (Negative); Leukocyte 500 Leu/uL (Negative); Protein, Urine (Dipstick) 100 mg/dL (Neg-Trace); Specific Gravity, Urine 1.014 (1.002-1.036); WBC/HPF Greater than 50 HPF (0-3)
[2025-06-25 17:57] LABS: Urine Culture Reflex Yes Yes
== END 2025-06-25 18:30 | disposition home or self-care (01) ==
LOC: ERS 15:27
DX: L03.115 Cellulitis of right lower limb (principal); I12.0 Hypertensive chronic kidney disease with stage 5 chronic kidney disease or end stage renal disease; E11.22 Type 2 diabetes mellitus with diabetic chronic kidney disease; N18.6 End stage renal disease; I25.2 Old myocardial infarction; I48.91 Unspecified atrial fibrillation; J44.9 Chronic obstructive pulmonary disease, unspecified; I25.10 Atherosclerotic heart disease of native coronary artery without angina pectoris; K21.9 Gastro-esophageal reflux disease without esophagitis; Z79.01 Long term (current) use of anticoagulants; Z79.899 Other long term (current) drug therapy
CPT/HCPCS: 36415; 71046; 80053; 81001; 83690; 83735; 85025; 87077; 87086; 93005

== ENCOUNTER 2025-07-02 21:42 | Emergency (ER) | payer OTHER ==
[2025-07-02 23:15] LABS: #Basophils Less than 0.03 10x3/uL (0.0-0.2); #Eosinophils 0.14 10x3/uL (0.0-0.7); #Monocytes 0.44 10x3/uL (0.11-0.59); #Neutrophils 7.52 10x3/uL (1.40-6.50); %Basophils 0.2 % (0.0-1.0); %Eosinophils 1.5 % (0.0-10.0); %Lymphocytes 11.7 % (21.0-51.0); %Monocytes 4.8 % (0.0-10.0); %Neutrophils 81.4 % (42.0-75.0); Hematocrit 27.3 % (36.0-47.0); Hemoglobin 9.3 g/dL (12.0-16.0); Mean Corpuscular Hemoglobin 30.3 pg (27.0-31.0); Mean Corpuscular Volume 88.9 fL (78.0-98.0); Platelet Count 273 10x3/uL (130-400); Red Blood Cell (RBC) Count 3.07 mill/uL (4.20-5.40); White Blood Cell (WBC) Count 9.24 10x3/uL (4.8-10.8)
[2025-07-02 23:32] LABS: ALT (SGPT) 13 U/L (Less than 34); AST (SGOT) 20 U/L (11-34); Albumin 3.0 g/dL (3.1-4.5); Alkaline Phosphatase 82 U/L (40-110); Anion Gap 15 mmol/L (10-20); BUN (Urea Nitrogen) 26 mg/dL (9.8-20.1); Bilirubin, Total 0.3 mg/dL (0.3-1.2); Calc. Creatinine Clearance 0 mL/min (70-130); Calcium 8.1 mg/dL (7.8-10.44); Carbon Dioxide 31 mmol/L (23-31); Chloride 99 mmol/L (98-107); Globulin 4.1 g/dL (2.4-3.5); Glucose 112 mg/dL (80-115); Lipase 38 U/L (8-78); Potassium 4.5 mmol/L (3.5-5.1); Sodium 140 mmol/L (136-145)
[2025-07-03] MEDS ORDERED: Acetaminophen 500 MG TAB ONE (01:35)
[2025-07-03] MEDS ORDERED: Ondansetron PF 4 MG/2 ML Vial ONE (01:35)
[2025-07-03 02:45] LABS: CK (CPK) 65 U/L (29-168); Magnesium 1.5 mg/dL (1.6-2.6)
[2025-07-03 02:49] LABS: Troponin I 0.017 ng/mL (< 0.028)
== END 2025-07-03 04:31 | disposition home or self-care (01) ==
LOC: ERS 21:42
DX: R11.2 Nausea with vomiting, unspecified (principal); R51.9 Headache, unspecified; I25.2 Old myocardial infarction; E78.5 Hyperlipidemia, unspecified; I48.91 Unspecified atrial fibrillation; J44.9 Chronic obstructive pulmonary disease, unspecified; I25.10 Atherosclerotic heart disease of native coronary artery without angina pectoris; I12.9 Hypertensive chronic kidney disease with stage 1 through stage 4 chronic kidney disease, or unspecified chronic kidney disease; E11.22 Type 2 diabetes mellitus with diabetic chronic kidney disease; N18.9 Chronic kidney disease, unspecified; Z99.2 Dependence on renal dialysis; Z87.891 Personal history of nicotine dependence; Z79.01 Long term (current) use of anticoagulants; Z79.899 Other long term (current) drug therapy
CPT/HCPCS: 36415; 71045; 80053; 82550; 83605; 83690; 83735; 83880; 84484; 85025; 87428; 93005; 96365; J2405; J2550; Q0162

== ENCOUNTER 2025-08-02 00:30 | Emergency (ER) | payer OTHER ==
[2025-08-02 01:07] LABS: #Basophils 0.03 10x3/uL (0.0-0.2); #Eosinophils 0.09 10x3/uL (0.0-0.7); #Monocytes 0.84 10x3/uL (0.11-0.59); #Neutrophils 10.09 10x3/uL (1.40-6.50); %Basophils 0.2 % (0.0-1.0); %Eosinophils 0.7 % (0.0-10.0); %Lymphocytes 10.3 % (21.0-51.0); %Monocytes 6.8 % (0.0-10.0); %Neutrophils 81.8 % (42.0-75.0); Hematocrit 29.0 % (36.0-47.0); Hemoglobin 9.6 g/dL (12.0-16.0); Mean Corpuscular Hemoglobin 29.6 pg (27.0-31.0); Mean Corpuscular Volume 89.5 fL (78.0-98.0); Platelet Count 182 10x3/uL (130-400); Red Blood Cell (RBC) Count 3.24 mill/uL (4.20-5.40); White Blood Cell (WBC) Count 12.35 10x3/uL (4.8-10.8)
[2025-08-02 01:21] LABS: ALT (SGPT) 9 U/L (Less than 34); AST (SGOT) 18 U/L (11-34); Albumin 3.1 g/dL (3.1-4.5); Alkaline Phosphatase 75 U/L (40-110); Anion Gap 15 mmol/L (10-20); BUN (Urea Nitrogen) 29 mg/dL (9.8-20.1); Bilirubin, Total 0.4 mg/dL (0.3-1.2); Calc. Creatinine Clearance 0 mL/min (70-130); Calcium 8.6 mg/dL (7.8-10.44); Carbon Dioxide 30 mmol/L (23-31); Chloride 96 mmol/L (98-107); Globulin 3.9 g/dL (2.4-3.5); Glucose 147 mg/dL (80-115); Potassium 3.8 mmol/L (3.5-5.1); Sodium 137 mmol/L (136-145)
[2025-08-02 01:22] LABS: INR-International Normal Ratio 1.3; Prothrombin Time 16.3 sec (12.0-14.7)
[2025-08-02 01:23] LABS: PTT 41.8 sec (22.9-36.1)
[2025-08-02] MEDS ORDERED: Vancomycin 1.5 GM / NS 500ML VIAL-2-BAG IVPB SCH (02:30)
[2025-08-02] MEDS ORDERED: Iopamidol 370 76% 100 ML VIAL ONE (11:17)
[2025-08-02] MEDS ORDERED: Acetaminophen 500 MG TAB ONE (15:05)
== END 2025-08-02 16:25 | disposition short-term general hospital (02) ==
LOC: ERS 00:30
DX: A41.9 Sepsis, unspecified organism (principal); M86.171 Other acute osteomyelitis, right ankle and foot; I10 Essential (primary) hypertension; E11.9 Type 2 diabetes mellitus without complications; I25.2 Old myocardial infarction; E78.5 Hyperlipidemia, unspecified; I48.91 Unspecified atrial fibrillation; K21.9 Gastro-esophageal reflux disease without esophagitis; Z79.899 Other long term (current) drug therapy; Z79.01 Long term (current) use of anticoagulants
CPT/HCPCS: 36415; 80053; 83605; 85025; 85610; 85730; 87149; 87186; 93005; 96365; 96366; 96367; J2543; J7030; Q9967

== ENCOUNTER 2025-09-17 10:44 | Emergency (ER) | payer OTHER ==
[2025-09-17 11:57] LABS: #Basophils Less than 0.03 10x3/uL (0.0-0.2); #Eosinophils 0.04 10x3/uL (0.0-0.7); #Monocytes 0.42 10x3/uL (0.11-0.59); #Neutrophils 8.51 10x3/uL (1.40-6.50); %Basophils 0.2 % (0.0-1.0); %Eosinophils 0.4 % (0.0-10.0); %Lymphocytes 9.0 % (21.0-51.0); %Monocytes 4.2 % (0.0-10.0); %Neutrophils 85.9 % (42.0-75.0); Hematocrit 28.4 % (36.0-47.0); Hemoglobin 9.5 g/dL (12.0-16.0); Mean Corpuscular Hemoglobin 29.4 pg (27.0-31.0); Mean Corpuscular Volume 87.9 fL (78.0-98.0); Platelet Count 195 10x3/uL (130-400); Red Blood Cell (RBC) Count 3.23 mill/uL (4.20-5.40); White Blood Cell (WBC) Count 9.91 10x3/uL (4.8-10.8)
[2025-09-17] MEDS ORDERED: diphenhydrAMINE 50 MG/ML VIAL ONE (12:05)
[2025-09-17] MEDS ORDERED: Famotidine/PF 20 mg/2ml Vial ONE (12:06)
[2025-09-17] MEDS ORDERED: Acetaminophen 325 MG TAB ONE (12:39)
[2025-09-17 13:04] LABS: ALT (SGPT) 12 U/L (Less than 34); AST (SGOT) 22 U/L (11-34); Albumin 3.2 g/dL (3.1-4.5); Alkaline Phosphatase 80 U/L (40-110); Anion Gap 12 mmol/L (10-20); BUN (Urea Nitrogen) 19 mg/dL (9.8-20.1); Bilirubin, Total 0.3 mg/dL (0.3-1.2); Calc. Creatinine Clearance 0 mL/min (70-130); Calcium 8.9 mg/dL (7.8-10.44); Carbon Dioxide 34 mmol/L (23-31); Chloride 97 mmol/L (98-107); Globulin 4.0 g/dL (2.4-3.5); Glucose 170 mg/dL (80-115); Lipase 46 U/L (8-78); Magnesium 1.8 mg/dL (1.6-2.6); Potassium 3.5 mmol/L (3.5-5.1); Sodium 139 mmol/L (136-145)
== END 2025-09-17 14:45 | disposition home or self-care (01) ==
LOC: ERS 10:44
DX: E87.8 Other disorders of electrolyte and fluid balance, not elsewhere classified (principal); R94.31 Abnormal electrocardiogram [ECG] [EKG]; I12.0 Hypertensive chronic kidney disease with stage 5 chronic kidney disease or end stage renal disease; N18.6 End stage renal disease; E11.22 Type 2 diabetes mellitus with diabetic chronic kidney disease; I25.2 Old myocardial infarction; J44.9 Chronic obstructive pulmonary disease, unspecified; E78.5 Hyperlipidemia, unspecified; K21.9 Gastro-esophageal reflux disease without esophagitis; I48.91 Unspecified atrial fibrillation; J45.909 Unspecified asthma, uncomplicated; E66.9 Obesity, unspecified; Z68.34 Body mass index [BMI] 34.0-34.9, adult; Z99.2 Dependence on renal dialysis; Z95.1 Presence of aortocoronary bypass graft; Z87.891 Personal history of nicotine dependence; Z79.899 Other long term (current) drug therapy; Z79.51 Long term (current) use of inhaled steroids; Z79.84 Long term (current) use of oral hypoglycemic drugs; Z79.01 Long term (current) use of anticoagulants
CPT/HCPCS: 74176; 80053; 83690; 83735; 85025; 93005; 94760; 96374; 96375; J1200; J1308; J2919

== ENCOUNTER 2025-09-26 09:13 | Observation (INO) | payer OTHER ==
[2025-09-26 09:54] LABS: #Basophils 0.03 10x3/uL (0.0-0.2); #Eosinophils 0.16 10x3/uL (0.0-0.7); #Monocytes 0.61 10x3/uL (0.11-0.59); #Neutrophils 8.28 10x3/uL (1.40-6.50); %Basophils 0.3 % (0.0-1.0); %Eosinophils 1.5 % (0.0-10.0); %Lymphocytes 12.1 % (21.0-51.0); %Monocytes 5.9 % (0.0-10.0); %Neutrophils 79.9 % (42.0-75.0); Hematocrit 32.0 % (36.0-47.0); Hemoglobin 10.2 g/dL (12.0-16.0); Mean Corpuscular Hemoglobin 29.7 pg (27.0-31.0); Mean Corpuscular Volume 93.3 fL (78.0-98.0); Platelet Count 196 10x3/uL (130-400); Red Blood Cell (RBC) Count 3.43 mill/uL (4.20-5.40); White Blood Cell (WBC) Count 10.36 10x3/uL (4.8-10.8)
[2025-09-26 10:24] LABS: ALT (SGPT) 17 U/L (Less than 34); AST (SGOT) 21 U/L (11-34); Albumin 3.4 g/dL (3.1-4.5); Alkaline Phosphatase 79 U/L (40-110); Anion Gap 18 mmol/L (10-20); BUN (Urea Nitrogen) 15 mg/dL (9.8-20.1); Bilirubin, Total 0.3 mg/dL (0.3-1.2); Calc. Creatinine Clearance 0 mL/min (70-130); Calcium 8.8 mg/dL (7.8-10.44); Carbon Dioxide 29 mmol/L (23-31); Chloride 95 mmol/L (98-107); Globulin 3.7 g/dL (2.4-3.5); Glucose 181 mg/dL (80-115); Potassium 3.9 mmol/L (3.5-5.1); Sodium 138 mmol/L (136-145)
[2025-09-26] MEDS ORDERED: Acetaminophen 325 MG TAB PO PRN (11:26)
[2025-09-26] MEDS ORDERED: Ondansetron PF 4 MG/2 ML Vial IVP PRN (11:26)
[2025-09-26] MEDS ORDERED: Cyclobenzaprine 10 MG TAB ONE (14:33)
[2025-09-26] MEDS: Cyclobenzaprine 10 MG TAB PO SCH (14:38)
[2025-09-26] MEDS ORDERED: cloNIDine 0.1 MG TAB ONE (14:39)
[2025-09-26] MEDS: cloNIDine 0.1 MG TAB PO SCH (14:40)
[2025-09-26 17:31] VITALS: BMI 35.1
[2025-09-26] MEDS: Mometasone 100 MCG/Formoterol 5 MCG 120 PUFF INHALER INH SCH (18:29)
[2025-09-26] MEDS: Pantoprazole 40 MG DR.TAB PO SCH (21:44)
[2025-09-26] MEDS: Apixaban 5 MG TAB PO SCH (21:44)
[2025-09-26] MEDS: Famotidine 20 MG TAB PO SCH (21:44)
[2025-09-27 04:26] LABS: #Basophils 0.03 10x3/uL (0.0-0.2); #Eosinophils 0.19 10x3/uL (0.0-0.7); #Monocytes 0.56 10x3/uL (0.11-0.59); #Neutrophils 5.49 10x3/uL (1.40-6.50); %Basophils 0.4 % (0.0-1.0); %Eosinophils 2.3 % (0.0-10.0); %Lymphocytes 25.0 % (21.0-51.0); %Monocytes 6.7 % (0.0-10.0); %Neutrophils 65.2 % (42.0-75.0); Hematocrit 31.9 % (36.0-47.0); Hemoglobin 10.2 g/dL (12.0-16.0); Mean Corpuscular Hemoglobin 29.8 pg (27.0-31.0); Mean Corpuscular Volume 93.3 fL (78.0-98.0); Platelet Count 182 10x3/uL (130-400); Red Blood Cell (RBC) Count 3.42 mill/uL (4.20-5.40); White Blood Cell (WBC) Count 8.40 10x3/uL (4.8-10.8)
[2025-09-27 05:18] LABS: Anion Gap 20 mmol/L (10-20); BUN (Urea Nitrogen) 33 mg/dL (9.8-20.1); Calc. Creatinine Clearance 15 mL/min (70-130); Calcium 8.5 mg/dL (7.8-10.44); Carbon Dioxide 27 mmol/L (23-31); Chloride 97 mmol/L (98-107); Glucose 71 mg/dL (80-115); Potassium 5.1 mmol/L (3.5-5.1); Sodium 139 mmol/L (136-145)
[2025-09-27] MEDS: Nitroglycerin 0.4 MG TAB (25 Tab Bottle) SL SCH (07:34)
[2025-09-27] MEDS ORDERED: Enoxaparin 40 MG (0.4 mL) SYRINGE SC SCH (09:00)
[2025-09-27] MEDS: Aspirin 325 MG TAB PO SCH (10:21)
[2025-09-27] MEDS: Ezetimibe 10 MG TAB PO SCH (10:22)
[2025-09-27] MEDS: Losartan 25 MG TAB PO SCH (10:22)
[2025-09-27] MEDS: Isosorbide Mononitrate 30 MG ER.TAB.S PO SCH (10:23)
[2025-09-27] MEDS: FLU (Fluarix Triv) 25-26 (6MOS UP)/PF 45 MCG/0.5 ML Syringe IM ONE (10:25)
[2025-09-27 11:49] LABS: ALT (SGPT) 16 U/L (Less than 34); AST (SGOT) 23 U/L (11-34); Albumin 3.2 g/dL (3.1-4.5); Alkaline Phosphatase 63 U/L (40-110); Anion Gap 19 mmol/L (10-20); BUN (Urea Nitrogen) 38 mg/dL (9.8-20.1); Bilirubin, Total 0.3 mg/dL (0.3-1.2); Calc. Creatinine Clearance 13 mL/min (70-130); Calcium 8.3 mg/dL (7.8-10.44); Carbon Dioxide 29 mmol/L (23-31); Chloride 94 mmol/L (98-107); Globulin 3.3 g/dL (2.4-3.5); Glucose 157 mg/dL (80-115); Potassium 5.1 mmol/L (3.5-5.1); Sodium 137 mmol/L (136-145)
[2025-09-27] MEDS: Rosuvastatin 10 MG TAB PO SCH (12:30)
[2025-09-27 16:32] VITALS: BP 113/61; TEMP 99
[2025-09-27] MEDS ORDERED: Rosuvastatin 10 MG TAB PO SCH (21:00)
== END 2025-09-27 16:00 | disposition home or self-care (01) ==
LOC: ERS 09:13 → ERHOLD 11:00 → 2NO 16:00
PROVIDERS: ADMIT Internal Medicine; ATTEND Internal Medicine
DX: R07.89 Other chest pain (principal); I12.0 Hypertensive chronic kidney disease with stage 5 chronic kidney disease or end stage renal disease; E11.22 Type 2 diabetes mellitus with diabetic chronic kidney disease; N18.6 End stage renal disease; D53.9 Nutritional anemia, unspecified; E78.5 Hyperlipidemia, unspecified; I25.10 Atherosclerotic heart disease of native coronary artery without angina pectoris; Z88.1 Allergy status to other antibiotic agents; Z88.5 Allergy status to narcotic agent; Z91.013 Allergy to seafood; Z88.0 Allergy status to penicillin; Z88.8 Allergy status to other drugs, medicaments and biological substances; Z88.2 Allergy status to sulfonamides; Z79.899 Other long term (current) drug therapy; Z79.84 Long term (current) use of oral hypoglycemic drugs; Z87.891 Personal history of nicotine dependence
CPT/HCPCS: 36415; 36416; 71045; 80048; 80053; 83880; 84484; 85025; 93005; 93010; 94760; G0378

== ENCOUNTER 2025-11-07 19:46 | Emergency (ER) | payer OTHER ==
[2025-11-07 20:43] LABS: #Basophils 0.03 10x3/uL (0.0-0.2); #Eosinophils 0.24 10x3/uL (0.0-0.7); #Monocytes 0.52 10x3/uL (0.11-0.59); #Neutrophils 5.22 10x3/uL (1.40-6.50); %Basophils 0.4 % (0.0-1.0); %Eosinophils 3.0 % (0.0-10.0); %Lymphocytes 25.5 % (21.0-51.0); %Monocytes 6.4 % (0.0-10.0); %Neutrophils 64.5 % (42.0-75.0); Hematocrit 34.0 % (36.0-47.0); Hemoglobin 10.9 g/dL (12.0-16.0); Mean Corpuscular Hemoglobin 29.6 pg (27.0-31.0); Mean Corpuscular Volume 92.4 fL (78.0-98.0); Platelet Count 189 10x3/uL (130-400); Red Blood Cell (RBC) Count 3.68 mill/uL (4.20-5.40); White Blood Cell (WBC) Count 8.09 10x3/uL (4.8-10.8)
[2025-11-07 21:03] LABS: ALT (SGPT) 21 U/L (Less than 34); AST (SGOT) 29 U/L (11-34); Albumin 3.6 g/dL (3.1-4.5); Alkaline Phosphatase 74 U/L (40-110); Anion Gap 10 mmol/L (10-20); BUN (Urea Nitrogen) 41 mg/dL (9.8-20.1); Bilirubin, Total 0.2 mg/dL (0.3-1.2); Calc. Creatinine Clearance 0 mL/min (70-130); Calcium 9.0 mg/dL (7.8-10.44); Carbon Dioxide 27 mmol/L (23-31); Chloride 106 mmol/L (98-107); Globulin 3.4 g/dL (2.4-3.5); Glucose 112 mg/dL (80-115); Potassium 4.1 mmol/L (3.5-5.1); Sodium 139 mmol/L (136-145)
== END 2025-11-07 22:31 | disposition home or self-care (01) ==
LOC: ERS 19:46
DX: T82.848A Pain due to vascular prosthetic devices, implants and grafts, initial encounter (principal); I12.0 Hypertensive chronic kidney disease with stage 5 chronic kidney disease or end stage renal disease; N18.6 End stage renal disease; E11.22 Type 2 diabetes mellitus with diabetic chronic kidney disease; Z99.2 Dependence on renal dialysis; Z87.891 Personal history of nicotine dependence
CPT/HCPCS: 36415; 80053; 85025; 93931; 96372; J2270